=== PATIENT | male | born 1960 | race Caucasian/White ===

== ENCOUNTER → 2016-08-12 | Outpatient (CLI) | payer OTHER ==
[~2016-08-12] MED LIST: ACET500T57 PO; MINO100T PO; OXYM0.056; PRED20TA2 PO; SIMV20TA2 PO; WARF10TA4 PO; WARF5TAB7 PO; XRL15 PO
[2016-08-12 12:23] LABS: BASO % 0.1 %; BASO ABS # 0.01 K/uL (0-0.2); COMPLETE YES; EOS % 3.8 %; HEMATOCRIT 46.8 % (42-52); IG% 0.3 %; LYMPH % 27.2 %; LYMPH ABS # 1.86 K/uL (1.2-3.4); MEAN CELL VOLUME 83.9 fL (80-100); MEAN CORPUSCULAR HEMOGLOBIN 28.9 pg (25-34); MEAN CORPUSCULAR HGB CONC 34.4 g/dl (32-36); MEAN PLATELET VOLUME 9.6 fL (7.4-10.4); MONO % 9.4 %; NEUT % 59.2 %; PLATELET COUNT 294 K/uL (130-400); RED BLOOD COUNT 5.58 M/uL (4.7-6.1); WHITE BLOOD COUNT 6.83 K/uL (4.8-10.8)
[2016-08-12 12:27] LABS: ALKALINE PHOSPHATASE 63 U/L (45-117); ALT/SGPT 33 U/L (12-78); AST/SGOT 18 U/L (15-37); BLOOD UREA NITROGEN 23 mg/dl (7-18); BUN/CREATININE RATIO 20.8 (10-20); CALCIUM 9.2 mg/dl (8.5-10.1); CARBON DIOXIDE 24 mmol/L (21-32); CHLORIDE 107 mmol/L (98-107); CHOLESTEROL 269 mg/dl (0-200); GLUCOSE 99 mg/dl (70-99); HDL CHOLESTEROL 54 mg/dl; LDL CHOLESTEROL CALCULATED 163 mg/dl; POTASSIUM 4.5 mmol/L (3.5-5.1); SODIUM 139 mmol/L (136-145); TRIGLYCERIDES 262 mg/dl (0-150); VERY LOW DENSITY LIPOPROT CALC 52 mg/dl
[2016-08-12 12:29] LABS: PROSTATE SPECIFIC ANTIGEN 0.329 ng/ml (0.000-4.000)
== END | disposition home or self-care (01) ==
LOC: C.LABBFT 10:27
PROVIDERS: ATTEND Internal Medicine
DX: Z00.00 Encounter for general adult medical examination without abnormal findings (principal); E78.5 Hyperlipidemia, unspecified; I82.409 Acute embolism and thrombosis of unspecified deep veins of unspecified lower extremity; I26.99 Other pulmonary embolism without acute cor pulmonale; Z12.5 Encounter for screening for malignant neoplasm of prostate

== ENCOUNTER → 2017-06-10 | Outpatient (CLI) | payer OTHER ==
[~2017-06-10] MED LIST changes: -PRED20TA2 PO; -XRL15 PO
[2017-06-10 14:29] LABS: ALT/SGPT 29 U/L (12-78); AST/SGOT 21 U/L (15-37); BLOOD UREA NITROGEN 19 mg/dl (7-18); BUN/CREATININE RATIO 18.3 (10-20); CALCIUM 9.1 mg/dl (8.5-10.1); CARBON DIOXIDE 25 mmol/L (21-32); CHLORIDE 106 mmol/L (98-107); CREATININE 1.05 mg/dl (0.60-1.40); GLUCOSE 101 mg/dl (70-99); POTASSIUM 4.4 mmol/L (3.5-5.1); SODIUM 140 mmol/L (136-145)
[2017-06-10 14:37] LABS: ALKALINE PHOSPHATASE 58 U/L (45-117); CHOLESTEROL 167 mg/dl (0-200); CHOLESTEROL/HDL RATIO 3.3; HDL CHOLESTEROL 51 mg/dl; LDL CHOLESTEROL CALCULATED 93 mg/dl; PROSTATE SPECIFIC ANTIGEN 0.442 ng/ml (0.000-4.000); TRIGLYCERIDES 116 mg/dl (0-150); VERY LOW DENSITY LIPOPROT CALC 23 mg/dl
== END | disposition home or self-care (01) ==
LOC: C.LABBFT 09:39
PROVIDERS: ATTEND Internal Medicine
DX: Z00.00 Encounter for general adult medical examination without abnormal findings (principal); Z12.5 Encounter for screening for malignant neoplasm of prostate; E78.5 Hyperlipidemia, unspecified

== ENCOUNTER → 2018-02-26 | Outpatient (CLI) | payer OTHER ==
[~2018-02-26] MED LIST changes: -ACET500T57 PO; +ACET500T58 PO; +[UNRECOGNIZED DRUG - OTHER] PO
[2018-02-26 17:43] LABS: ALBUMIN 3.6 gm/dl (3.4-5.0); ALKALINE PHOSPHATASE 51 U/L (45-117); ALT/SGPT 25 U/L (12-78); AST/SGOT 21 U/L (15-37); BLOOD UREA NITROGEN 21 mg/dl (7-18); CALCIUM 8.2 mg/dl (8.5-10.1); CARBON DIOXIDE 23 mmol/L (21-32); CHOLESTEROL 176 mg/dl (0-200); CREATININE 0.99 mg/dl (0.60-1.40); GLUCOSE 85 mg/dl (70-99); LDL CHOLESTEROL CALCULATED 112 mg/dl; POTASSIUM 3.9 mmol/L (3.5-5.1); SODIUM 138 mmol/L (136-145); TOTAL PROTEIN 7.3 gm/dl (6.4-8.2)
[2018-02-27 06:50] LABS: HEMOGLOBIN A1C 5.8 % (4.5-5.6)
== END | disposition home or self-care (01) ==
LOC: C.LABBFT 11:09
PROVIDERS: ATTEND Internal Medicine
DX: Z00.00 Encounter for general adult medical examination without abnormal findings (principal); E78.5 Hyperlipidemia, unspecified; R73.01 Impaired fasting glucose

== ENCOUNTER 2018-03-05 20:30 | Emergency (ER) | payer OTHER ==
[~2018-03-05] VITALS: Ht 177.8 cm; Wt 110.4 kg
[2018-03-05 20:34] VITALS: TEMP 36.8; Ht 177.8 cm; Wt 110.4 kg
[2018-03-05 21:46] VITALS: BP 132/76; PULSE 78; O2SAT 98
--- NOTE | 2018-03-05 23:41 | EMERGENCY ROOM VISIT NOTE ---
History Report prepared by Estefaniaibdenis: Krupa Richard Under the Supervision of: Dr. West Tolbert D.O. First contact with patient: 21:05 Chief Complaint: FOOD BOLUS Stated Complaint: FOOD FEELS STUCK IN THROAT Nursing Triage Summary: PT ate approx 1/2 hr ago states "I feel as though there is a lump in my throat, I can swallow but I gagged for a few mins after I had eaten." PT has no CP, lungs CTA. RA sat is 97. no distress noted. History of Present Illness The patient is a 58 year old male who presents to the Emergency Room with complaints of an episode of food bolus that occurred 1 hour prior to arrival. The patient reports that he was eating fish sticks when he started to gag severely. He notes that he was able to swallow but he states that his throat still does not feel right. He reports that he was able to drink some milk after the episode and he denies having trouble breathing. Source of History: patient Onset: 1 hour prior to arrival Position: throat Quality: other (food bolus) Timing: other (episode) Associated Symptoms: No nausea Note: Additional symptoms: gagging Denies: trouble breathing Review of Systems See HPI for pertinent positives & negatives. A total of 10 systems reviewed and were otherwise negative. Past Medical & Surgical Medical Problems: (1) Bilateral pulmonary embolism (2) Depression (3) Major depressive disorder, recurrent episode with anxious distress (4) past psych meds (5) Pulmonary embolism (6) Right heart failure due to pulmonary hypertension Family History Cancer Social History Smoking Status: Never Smoker Alcohol Use: none Drug Use: none Marital Status: single Housing Status: lives alone Occupation Status: unemployed Current/Historical Medications Scheduled Acetaminophen (Acetaminophen), 1 TAB PO 2XWK Minocycline Hcl (Minocycline Hcl), 1 TAB PO DAILY Oxymetazoline Hcl (Afrin), 1 SPRAY NA QAM Simvastatin (Zocor), 40 MG PO QPM Warfarin Sod (Jantoven), 5 MG PO WK Warfarin Sod (Jantoven), 10 MG PO 6XWK [Alpha Muscle Complex], 1 TAB PO DAILY Allergies Coded Allergies: Rivaroxaban (Verified Allergy, Severe, tongue swelled, hands swelled, redness, itching, 01/26/17) Physical Exam Vital Signs Date Time Temp Pulse Resp B/P (MAP) Pulse Ox O2 Delivery O2 Flow Rate FiO2 03/05/18 21:46 78 18 132/76 98 03/05/18 20:43 97 Room Air 03/05/18 20:34 36.8 73 18 143/102 98 Room Air Physical Exam CONSTITUTIONAL/VITAL SIGNS: Reviewed / noted above. GENERAL: Non-toxic in appearance. INTEGUMENTARY: Warm, dry, and [place]. HEAD: Normocephalic. EYES: without scleral icterus or trauma. ENT/OROPHARYNX: mild mucosa edema in posterior oropharynx. LYMPHADENOPATHY/NECK: Is supple without lymphadenopathy or meningismus. RESPIRATORY: Lungs clear and equal. CARDIOVASCULAR: Regular rate and rhythm. GI/ABDOMEN: Soft and nontender. No organomegaly or pulsatile mass. No rebound or guarding. Normal bowel sounds. EXTREMITIES: Warm and well perfused. BACK: No CVA tenderness. NEUROLOGICAL: Intact without focal deficits. PSYCHIATRIC: normal affect. MUSCULOSKELETAL: Normally developed with good muscle tone. Medical Decision & Procedures ED Course 2117: Previous medical records were reviewed. The patient was evaluated in room A10. A complete history and physical examination was performed. 2146: On reevaluation, the patient is resting. I discussed the results and findings with the patient. He verbalized agreement of the treatment plan. The patient was discharged home. Medical Decision Differential includes allergic reaction, infection, esophageal obstruction, aspiration. This is a 58-year-old male who presents to the ED with a chief complaint of a sensation of something getting stuck in the back of his throat while he was eating a fish stick. The patient that he gagged and this caused him to gag several times. The patient came in for evaluation as he had some discomfort in the posterior oropharynx. His physical exam reveals some mild mucosal edema in the posterior oropharynx midline. No other abnormalities were noted. The patient is breathing without difficulty. He denies any respiratory issues. The patient was able to swallow fluids and he does not have any discomfort in his chest with drinking. The patient, after evaluation was advised of the results of his evaluation. He was told of the findings and is to anticipate that his symptoms will improve over the next 12-24 hours. The patient was felt to be stable for discharge. Medication Reconcilliation Current Medication List: was personally reviewed by me Blood Pressure Screening Patient's blood pressure: Normal blood pressure Impression Primary Impression: Sore throat Scribe Attestation The scribe's documentation has been prepared under my direction and personally reviewed by me in its entirety. I confirm that the note above accurately reflects all work, treatment, procedures, and medical decision making performed by me. Departure Information Dispostion Home / Self-Care Referrals Catalina Todd M.D. (PCP) Forms HOME CARE DOCUMENTATION FORM, IMPORTANT VISIT INFORMATION, WORK / SCHOOL INSTRUCTIONS Patient Instructions My [facility]
== END 2018-03-05 21:47 | disposition home or self-care (01) ==
LOC: C.EDB 20:31 → C.EDA 21:47
DX: R07.0 Pain in throat (principal); Z86.711 Personal history of pulmonary embolism; Z79.01 Long term (current) use of anticoagulants; Z88.8 Allergy status to other drugs, medicaments and biological substances

== ENCOUNTER 2019-02-16 18:31 | Inpatient (IN) ==
[2019-02-16] MEDS ORDERED: SODIUM CHLORIDE 0.9% 500 ML IV SCH (18:45)
[2019-02-16] MEDS ORDERED: SODIUM CHLORIDE 0.9% 1000ML 1,000 ML IV SCH (18:45)
[2019-02-16 19:42] LABS: Basophils # (auto) 0.01 K/uL (0-0.2); Basophils % (auto) 0.1 %; Eosinophils # (auto) 0.21 K/uL (0-0.5); Eosinophils % (auto) 2.3 %; Hematocrit (blood only) 43.5 % (42-52); Hemoglobin 14.9 g/dL (14.0-18.0); Immature Granulocytes # (auto) 0.02 K/uL (0.00-0.02); Immature Granulocytes % (auto) 0.2 %; Lymphocytes # (auto) 1.57 K/uL (1.2-3.4); Lymphocytes % (auto) 17.3 %; Mean Corpuscular Hgb Conc 34.3 g/dL (32-36); Mean Corpuscular Volume 86.8 fL (80-100); Mean Platelet Volume 8.8 fL (7.4-10.4); Monocytes # (auto) 0.89 K/uL (0.11-0.59); Monocytes % (auto) 9.8 %; Neutrophils % (auto) 70.3 %; Platelet Count 248 K/uL (130-400); RDW Coefficient of Variation 13.9 % (11.5-14.5); Red Blood Count 5.01 M/uL (4.7-6.1)
[2019-02-16 19:59] LABS: Albumin Level 3.8 gm/dl (3.4-5.0); BUN Creatinine Ratio 19.4 (10-20); Calcium 9.1 mg/dl (8.5-10.1); Creatinine Clr Calc Pharmacy 73.7 ml/min; Est GFR (African American) 68.7; Est GFR (Non-African American) 59.3; Magnesium 2.2 mg/dl (1.8-2.4); Potassium 3.6 mmol/L (3.5-5.1)
[2019-02-16 20:02] LABS: Albumin Globulin Ratio 1.1 (0.9-2); Bilirubin,Total 0.4 mg/dl (0.2-1); Globulin 3.6 gm/dl (2.5-4.0); Total Protein 7.4 gm/dl (6.4-8.2)
[2019-02-16 20:16] LABS: Amphetamines+Metham, Urine Neg (Neg); Barbiturates, Urine Neg (Neg); Benzodiazepine, Urine Neg (Neg); Cocaine, Urine Neg (Neg); MDMA (Ecstacy), Urine Neg (Neg); Methadone, Urine Neg (Neg); Opiate, Urine Neg (Neg); Phencyclidine, Urine Neg (Neg)
[2019-02-16 20:17] LABS: Acetaminophen < 2 ug/ml (10-30); Salicylate < 1.7 mg/dl (2.8-20)
[2019-02-16 21:09] LABS: Appearance Urine Clear (Clear); Bacteria Urine Automated Negative (Negative); Blood Urine Negative (Negative); Color Urine Dark Yellow; Glucose Urine UA Negative (Negative); Ketones Urine Negative (Negative); Leukocyte Esterase Urine Negative (Negative); Nitrite Urine Negative (Negative); Protein Urine Trace (Negative); RBC Urine Automated 0-4 /hpf (0-4); Specific Gravity Urine 1.034 (1.000-1.030); Urobilinogen Urine Negative (Negative)
[2019-02-16 21:12] LABS: Bilirubin Urine Negative (Negative); Ictotest Urine Negative (Negative)
[2019-02-16 21:20] LABS: Calcium Oxalate Crystals Urine Present (None Prsent)
--- NOTE | 2019-02-16 23:48 | Emergency Department Note ---
Entered by Britney Calhoun acting as a scribe for Brooke Tripp MD History of Present Illness General Chief complaint: Overdose (Intentional) Stated complaint: OVERDOSE, ANXIETY, HEADACHE Source: patient Limitations: no limitations History of Present Illness Provider complaint: Overdose Onset (ago): day(s) 1 Location: head Radiation: non-radiation Quality: + aching Relieved By: + none Exacerbated By: + none Associated symptoms: + shortness of breath and + other (+anxiety, +aching, +dry mouth, -heart pounding) Treatments prior to arrival: none The patient is a year 58 old male who presents to the Emergency Department with after an overdose. The patient took "about 25 over the counter sleeping pills" yesterday in the evening, he is not sure if it contained Tylenol. The patient states he was having trouble sleeping and he got a very bad anxiety that caused him to take the pills. He states that the bottle is at home. The patient states despite taking the pills, he did not sleep well and when he woke up he was having difficulty breathing and his mouth was very dry. The patient felt as though he was hearing voices today. The patient decided to come in today after speaking to a friend because he feels as if his body is shutting down on him. The patient states he has depression on and off and at times is suicidal. The patient takes Coumadin regularly. The patient also states he has a history of blood clots. The patient denies smoking or drugs. Home Medications Home Medications Medication Instructions Recorded Confirmed Type warfarin 10 mg tablet 10 mg PO 6XWK tab 04/13/18 02/16/19 History warfarin 5 mg PO WK 02/05/19 02/16/19 History simvastatin 40 mg tablet 40 mg PO HS #30 tab 02/15/19 02/16/19 Rx Allergies Allergy/AdvReac Type Severity Reaction Status Date / Time rivaroxaban Allergy Severe tongue Verified 02/05/19 13:52 swelled, hands swelled, redness, itching Past Med/Surg History Medical History Left shoulder pain (Acute) Pulmonary embolism (Chronic) Depression (Chronic) Adverse reaction to drug (Acute) Bilateral pulmonary embolism Major depressive disorder, recurrent episode with anxious distress Right heart failure due to pulmonary hypertension Surgical History No pertinent past surgical history Family History Other No pertinent family history Social History Preferred Language: Latvian Communication Ability: Effective Visual Impairment: No Limitations Hearing Ability: Normal Derrick Boat [employer] Required: No Beliefs That Will Affect Care: None Current Living Situation: Alone Feels Safe at Home: Yes Smoking Status: Former smoker Review of Systems See HPI for pertinent positives & negatives. and A total of 10 systems reviewed and were otherwise negative Physical Exam Vital Signs Vital Signs - 24 hr 02/16/19 18:37 02/16/19 20:00 02/16/19 20:37 Temperature 36.8 C Temperature Source Oral Sepsis Recent Fever Within 48 Hours No Sepsis New/Unexplained Change in Mental Status No Sepsis Action Taken by Nursing No Action Required Pulse Rate 80 Pulse Rate [Apical] 79 Pulse Rhythm Regular Pulse Rhythm [Apical] Pulse Strength Normal Respiratory Rate 18 18 Respiratory Effort / Characteristics Non-Labored Respiratory Depth Normal Respiratory Pattern Regular Blood Pressure 147/91 H Blood Pressure [Right Arm] 145/92 H Blood Pressure Mean 109 Blood Pressure Mean [Right Arm] 109 Blood Pressure Position Lying Pulse Oximetry 95 98 99 Oxygen Delivery Method Room Air Room Air Room Air 02/16/19 23:07 Temperature Temperature Source Sepsis Recent Fever Within 48 Hours Sepsis New/Unexplained Change in Mental Status Sepsis Action Taken by Nursing Pulse Rate Pulse Rate [Apical] 90 Pulse Rhythm Pulse Rhythm [Apical] Regular Pulse Strength Respiratory Rate 18 Respiratory Effort / Characteristics Respiratory Depth Normal Respiratory Pattern Blood Pressure Blood Pressure [Right Arm] 150/80 H Blood Pressure Mean Blood Pressure Mean [Right Arm] 103 Blood Pressure Position Pulse Oximetry 98 Oxygen Delivery Method Room Air Vital signs reviewed. General: Anxious and disheveled looking male, in no significant distress. HEENT: No scleral icterus, PERRLA, neck supple. Atraumatic. Cardiovascular: Regular rate and rhythm, no extra sounds. Pulmonary: Clear to auscultation bilaterally, normal work of breathing. Abdomen: Soft, nontender, nondistended, positive bowel sounds. Musculoskeletal: Atraumatic, no peripheral edema. Neurologic: Patient awake alert and oriented x 3. Skin: Warm, dry, no rash PSYCH: passive SI, no HI Course 1843: Past medical records reviewed. The patient was evaluated in room A6. A complete history and physical examination was performed. 2447: I spoke with the nurse liaison about the patients case. The patient will be admitted to [address] [place] [address]. Administered Medications Discontinued Medications Sodium Chloride (Nss) 500 mls @ 999 mls/hr IV .Q31M SETH Stop: 02/16/19 19:15 Last Infusion: 02/16/19 19:33 Dose: 0 mls/hr Documented by: [id number] Admin: 02/16/19 19:08 Dose: 999 mls/hr Documented by: [id number] Sodium Chloride (Nss 1000ml) 1,000 mls @ 150 mls/hr IV .Q6H40M SETH Stop: 03/18/19 18:44 Last Infusion: 02/17/19 00:51 Dose: 0 mls/hr Documented by: [id number] Admin: 02/16/19 19:08 Dose: 150 mls/hr Documented by: [id number] Medical Decision Making Differential Diagnosis Differential diagnosis: Etiologies such as mood disorder, infection, hypoglycemia, electrolyte abnormalities, cardiac sources, intracerebral event, toxicologic, neurologic, as well as others were entertained. Medical Records Attestation: I reviewed the patient's medical records. Home Medications Current Medication List: was personally reviewed by me Laboratory Data Attestation: I reviewed the patient's lab results. Result diagrams: 02/16/19 19:28 02/16/19 19:28 Lab Results 02/16/19 02/16/19 02/16/19 Range/Units 19:28 19:28 19:28 WBC 9.10 (4.8-10.8) K/uL RBC 5.01 (4.7-6.1) M/uL Hgb 14.9 (14.0-18.0) g/dL Hct 43.5 (42-52) % MCV 86.8 (80-100) fL MCH 29.7 (25-34) pg MCHC 34.3 (32-36) g/dL RDW Std Deviation 44.0 (36.4-46.3) fL RDW Coeff of Christin 13.9 (11.5-14.5) % Plt Count 248 (130-400) K/uL MPV 8.8 (7.4-10.4) fL Immature Gran % (Auto) 0.2 % Neut % (Auto) 70.3 % Lymph % (Auto) 17.3 % [place] % (Auto) 9.8 % Eos % (Auto) 2.3 % Baso % (Auto) 0.1 % Immature Gran # (Auto) 0.02 (0.00-0.02) K/uL Neut # (Auto) 6.40 (1.4-6.5) K/uL Lymph # (Auto) 1.57 (1.2-3.4) K/uL [place] # (Auto) 0.89 H (0.11-0.59) K/uL Eos # (Auto) 0.21 (0-0.5) K/uL Baso # (Auto) 0.01 (0-0.2) K/uL PT (9.0-12.0) Seconds INR (0.9-1.1) APTT (21.0-31.0) Seconds PTT Ratio Sodium 142 (136-145) mmol/L Potassium 3.6 (3.5-5.1) mmol/L Chloride 109 H (98-107) mmol/L Carbon Dioxide 28 (21-32) mmol/L Anion Gap 5.0 (3-11) BUN 25 H (7-18) mg/dl Creatinine 1.30 (0.6-1.4) mg/dl Est Cr Clr Drug Dosing 73.7 ml/min Est GFR ( Amer) 68.7 Est GFR (Non-Af Amer) 59.3 BUN/Creatinine Ratio 19.4 (10-20) Glucose 102 H (70-99) mg/dl Calcium 9.1 (8.5-10.1) mg/dl Magnesium 2.2 (1.8-2.4) mg/dl Total Bilirubin 0.4 (0.2-1) mg/dl AST 44 H (15-37) U/L ALT 35 (12-78) U/L Alkaline Phosphatase 56 (45-117) U/L Total Protein 7.4 (6.4-8.2) gm/dl Albumin 3.8 (3.4-5.0) gm/dl Globulin 3.6 (2.5-4.0) gm/dl Albumin/Globulin Ratio 1.1 (0.9-2) TSH (0.300-4.500) uIu/ml Urine Color Urine Appearance (Clear) Urine pH (4.5-7.5) Ur Specific Kirk (1.000-1.030) Urine Protein (Negative) Urine Glucose (UA) (Negative) Urine Ketones (Negative) Urine Blood (Negative) Urine Nitrite (Negative) Urine Bilirubin (Negative) Urine Urobilinogen (Negative) Ur Leukocyte Esterase (Negative) Urine WBC (Auto) (0-5) /hpf Urine RBC (Auto) (0-4) /hpf U Hyaline Cast (Auto) (0-5) /lpf U Epithel Cells (Auto) (0-5) /lpf Urine Bacteria (Auto) (Negative) Urine Crystals Calcium Oxalate Crystal (None Prsent) Salicylates < 1.7 L (2.8-20) mg/dl Urine Opiates Screen (Neg) Ur Methadone, Qual (Neg) Acetaminophen < 2 L (10-30) ug/ml Urine Barbiturates (Neg) Ur Phencyclidine (PCP) (Neg) U Amphetamin/Meth Scrn (Neg) MDMA (Ecstasy) Screen (Neg) U Benzodiazepines Scrn (Neg) Ur Cocaine Metabolite (Neg) U Marijuana (THC) Screen (Neg) Ethyl Alcohol mg/dL (0-3) mg/dl 02/16/19 02/16/19 02/16/19 Range/Units 19:28 19:28 19:28 WBC (4.8-10.8) K/uL RBC (4.7-6.1) M/uL Hgb (14.0-18.0) g/dL Hct (42-52) % MCV (80-100) fL MCH (25-34) pg MCHC (32-36) g/dL RDW Std Deviation (36.4-46.3) fL RDW Coeff of Christin (11.5-14.5) % Plt Count (130-400) K/uL MPV (7.4-10.4) fL Immature Gran % (Auto) % Neut % (Auto) % Lymph % (Auto) % [place] % (Auto) % Eos % (Auto) % Baso % (Auto) % Immature Gran # (Auto) (0.00-0.02) K/uL Neut # (Auto) (1.4-6.5) K/uL Lymph # (Auto) (1.2-3.4) K/uL [place] # (Auto) (0.11-0.59) K/uL Eos # (Auto) (0-0.5) K/uL Baso # (Auto) (0-0.2) K/uL PT 41.4 H (9.0-12.0) Seconds INR 4.5 H (0.9-1.1) APTT 41.9 H (21.0-31.0) Seconds PTT Ratio 1.5 Sodium (136-145) mmol/L Potassium (3.5-5.1) mmol/L Chloride (98-107) mmol/L Carbon Dioxide (21-32) mmol/L Anion Gap (3-11) BUN (7-18) mg/dl Creatinine (0.6-1.4) mg/dl Est Cr Clr Drug Dosing ml/min Est GFR ( Amer) Est GFR (Non-Af Amer) BUN/Creatinine Ratio (10-20) Glucose (70-99) mg/dl Calcium (8.5-10.1) mg/dl Magnesium (1.8-2.4) mg/dl Total Bilirubin (0.2-1) mg/dl AST (15-37) U/L ALT (12-78) U/L Alkaline Phosphatase (45-117) U/L Total Protein (6.4-8.2) gm/dl Albumin (3.4-5.0) gm/dl Globulin (2.5-4.0) gm/dl Albumin/Globulin Ratio (0.9-2) TSH 1.930 (0.300-4.500) uIu/ml Urine Color Urine Appearance (Clear) Urine pH (4.5-7.5) Ur Specific Kirk (1.000-1.030) Urine Protein (Negative) Urine Glucose (UA) (Negative) Urine Ketones (Negative) Urine Blood (Negative) Urine Nitrite (Negative) Urine Bilirubin (Negative) Urine Urobilinogen (Negative) Ur Leukocyte Esterase (Negative) Urine WBC (Auto) (0-5) /hpf Urine RBC (Auto) (0-4) /hpf U Hyaline Cast (Auto) (0-5) /lpf U Epithel Cells (Auto) (0-5) /lpf Urine Bacteria (Auto) (Negative) Urine Crystals Calcium Oxalate Crystal (None Prsent) Salicylates (2.8-20) mg/dl Urine Opiates Screen (Neg) Ur Methadone, Qual (Neg) Acetaminophen (10-30) ug/ml Urine Barbiturates (Neg) Ur Phencyclidine (PCP) (Neg) U Amphetamin/Meth Scrn (Neg) MDMA (Ecstasy) Screen (Neg) U Benzodiazepines Scrn (Neg) Ur Cocaine Metabolite (Neg) U Marijuana (THC) Screen (Neg) Ethyl Alcohol mg/dL < 3.0 (0-3) mg/dl 02/16/19 02/16/19 Range/Units 19:40 19:40 WBC (4.8-10.8) K/uL RBC (4.7-6.1) M/uL Hgb (14.0-18.0) g/dL Hct (42-52) % MCV (80-100) fL MCH (25-34) pg MCHC (32-36) g/dL RDW Std Deviation (36.4-46.3) fL RDW Coeff of Christin (11.5-14.5) % Plt Count (130-400) K/uL MPV (7.4-10.4) fL Immature Gran % (Auto) % Neut % (Auto) % Lymph % (Auto) % [place] % (Auto) % Eos % (Auto) % Baso % (Auto) % Immature Gran # (Auto) (0.00-0.02) K/uL Neut # (Auto) (1.4-6.5) K/uL Lymph # (Auto) (1.2-3.4) K/uL [place] # (Auto) (0.11-0.59) K/uL Eos # (Auto) (0-0.5) K/uL Baso # (Auto) (0-0.2) K/uL PT (9.0-12.0) Seconds INR (0.9-1.1) APTT (21.0-31.0) Seconds PTT Ratio Sodium (136-145) mmol/L Potassium (3.5-5.1) mmol/L Chloride (98-107) mmol/L Carbon Dioxide (21-32) mmol/L Anion Gap (3-11) BUN (7-18) mg/dl Creatinine (0.6-1.4) mg/dl Est Cr Clr Drug Dosing ml/min Est GFR ( Amer) Est GFR (Non-Af Amer) BUN/Creatinine Ratio (10-20) Glucose (70-99) mg/dl Calcium (8.5-10.1) mg/dl Magnesium (1.8-2.4) mg/dl Total Bilirubin (0.2-1) mg/dl AST (15-37) U/L ALT (12-78) U/L Alkaline Phosphatase (45-117) U/L Total Protein (6.4-8.2) gm/dl Albumin (3.4-5.0) gm/dl Globulin (2.5-4.0) gm/dl Albumin/Globulin Ratio (0.9-2) TSH (0.300-4.500) uIu/ml Urine Color Dark Yellow Urine Appearance Clear (Clear) Urine pH 5.0 (4.5-7.5) Ur Specific Kirk 1.034 H (1.000-1.030) Urine Protein Trace H (Negative) Urine Glucose (UA) Negative (Negative) Urine Ketones Negative (Negative) Urine Blood Negative (Negative) Urine Nitrite Negative (Negative) Urine Bilirubin Negative (Negative) Urine Urobilinogen Negative (Negative) Ur Leukocyte Esterase Negative (Negative) Urine WBC (Auto) 1-5 (0-5) /hpf Urine RBC (Auto) 0-4 (0-4) /hpf U Hyaline Cast (Auto) 1-5 (0-5) /lpf U Epithel Cells (Auto) 5-10 H (0-5) /lpf Urine Bacteria (Auto) Negative (Negative) Urine Crystals Not Reportable Calcium Oxalate Crystal Present A (None Prsent) Salicylates (2.8-20) mg/dl Urine Opiates Screen Neg (Neg) Ur Methadone, Qual Neg (Neg) Acetaminophen (10-30) ug/ml Urine Barbiturates Neg (Neg) Ur Phencyclidine (PCP) Neg (Neg) U Amphetamin/Meth Scrn Neg (Neg) MDMA (Ecstasy) Screen Neg (Neg) U Benzodiazepines Scrn Neg (Neg) Ur Cocaine Metabolite Neg (Neg) U Marijuana (THC) Screen Neg (Neg) Ethyl Alcohol mg/dL (0-3) mg/dl ECG Data Attestation: I personally reviewed and interpreted this ECG as follows: Indication: other (Overdose) Rate (beats per minute): 77 Rhythm: normal sinus Findings: + other (NAD) Blood Pressure Blood Pressure Findings: Elevated blood pressure Blood Pressure Disposition: further management by hospitalist MDM Narrative This patient was evaluated and appeared to be in no significant distress. Patient admits to some passive suicidal thoughts. He was medically evaluated and cleared. Patient was evaluated by the mental health case preparer and liner and apparently had admitted to his brother yesterday that he intended to harm himself and overdose on pills. The police did arrive in the emergency department to speak with the patient. A 302 petition was filed however the patient is voluntary for admission at this time. Patient is found to have an INR of 4.5. My recommendation would be for the patient to skip his Coumadin 1 to 2 days and repeat the INR in 3 days. Patient signed and on a 201 and was accepted to 3 [address]. for admission. Impression & Plan Intentional diphenhydramine overdose Discharge Plan Visit Data Chief Complaint: Overdose (Intentional) Stated Complaint: OVERDOSE, ANXIETY, HEADACHE ED Provider: Brooke Tripp Discharge Problem: Intentional diphenhydramine overdose Discharge Instructions Interventions: ED Discharge Assessment Last Done: 02/17/19 00:51 Discharge Problem: Intentional diphenhydramine overdose Qualifiers: Encounter type: initial encounter Qualified Code(s): T45.0X2A - Poisoning by antiallergic and antiemetic drugs, intentional self-harm, initial encounter The scribe's documentation has been prepared under my direction and personally reviewed by me in its entirety. I confirm that the note above accurately reflects all work, treatment, procedures, and medical decision making performed by me.
[2019-02-17 00:30] LABS: INR 4.5 (0.9-1.1); Partial Thromboplastin Ratio 1.5; Partial Thromboplastin Time 41.9 Seconds (21.0-31.0); Prothrombin Time 41.4 Seconds (9.0-12.0)
[2019-02-17] MEDS ORDERED: ALUMINUM/MAGNESIUM SUSP 30 ML UDC PO PRN (01:16)
[2019-02-17] MEDS ORDERED: MAGNESIUM HYDROXIDE SUSP 30 ML UDC PO PRN (01:16)
[2019-02-17] MEDS ORDERED: BISMUTH SUBSALICYLATE PER ML OMNICELL CHARGE PO PRN (01:16)
[2019-02-17] MEDS ORDERED: ACETAMINOPHEN 325 MG TAB PO PRN (01:16)
[2019-02-17] MEDS ORDERED: SODIUM CHLORIDE 0.65% NA SOLN 45 ML (OCEAN) PRN (01:16)
[2019-02-17] MEDS ORDERED: PNEUMOCOCCAL ADMINISTRATION CHARGE ONE (06:30)
[2019-02-17] MEDS ORDERED: PNEUMOCOCCAL POLYSACCHARIDES 25 MCG/0.5 ML VIAL/SYR IM ONE (06:30)
--- NOTE | 2019-02-17 09:34 | History & Physical ---
Date of Service February 17, 2019 Impression / Recommendations Impression 58-year-old single male with a history of severe recurrent depression with psychosis, anxiety NOS, PE/DVT on Coumadin, and noncompliance with mental health treatment who is admitted voluntarily after a suicide attempt by overdose on an unknown rhsq-szc-metmyon sleeping medication (likely diphenhydramine or melatonin, as acetaminophen level was negative). He has a history of previous suicide attempt by overdose, and severe psychotic depression with multiple past hospitalizations, 2 courses of ECT, and noncompliance with outpatient treatment, which led to an involuntary outpatient commitment during his last psychiatric hospitalization here in 2015. He indicates that he dropped out of treatment and stopped medications and outpatient care years ago, and his recollection is that he was told he no longer needed treatment, which is highly unlikely. I suspect that he dropped out of treatment once he was no longer under an involuntary outpatient commitment, but we will attempt to clarify this with the county, and we will need to re-refer him for services and consider the need for another involuntary outpatient commitment. His INR is supratherapeutic, and discussed with Dr. Loyola, the director of the anticoagulation clinic, regarding the specific recommendations for that. This is likely due to his overdose, as his INR is typically stable, and represents another source of imminent risk and could lead to if not monitored and treated. He remains at imminent risk of , disability, or serious injury as a result of his psychiatric conditions, and inpatient treatment is least restrictive appropriate venue for care. (1) Intentional overdose of drug in tablet form: 02/17 - Patient reports intentional overdose on an unknown [id number] sleep medication, is likely diphenhydramine or melatonin based on lack of an elevated acetaminophen level on his toxicology screen. -It would be helpful to identify a friend or family to go to his apartment and retrieve the medication, as well as any other medications in order to limit his access to large amounts of medications, given his history of at least 2 serious overdoses. -Ideally the patient's access to his Coumadin would be restricted, again due to the risk in overdose, but he lives alone and our ability to secure that medication after discharge may be limited. -Encourage group attendance and participation, work on healthy coping skills and a discharge safety plan. Present on Admission?: Yes (2) Depression: 02/17 -patient presents with severe depression and psychotic features. Cannot rule out a delusional disorder with respect to his chronically expressed belief that his life is doomed because he received the "bad feminine genes," while his brothers received the "good genes," who have had good health and lives. -Previous good response to quetiapine and sertraline, and the patient agrees to resume these medications to target mood, anxiety, sleep, and ruminations/delusions. -Start sertraline 50 mg daily and quetiapine 50 mg at bedtime with a repeat dose x1 as needed for sleep. We will titrate to previously effective doses of 200 mg every morning and 200 mg at bedtime, respectively. -Fasting lipid profile and glucose ordered for tomorrow morning for monitoring on an atypical antipsychotic. -Recommend family meeting with friend Luis Felipe and/or brothers. -Patient will need to be referred for outpatient services, including psychiatric care, therapy, and case management. Coordinate with the base service [facility] regarding his past treatment, specifically to clarify if he dropped out of treatment after his IOC , as this may argue toward the need for another IOC. -Explore ways to increase his supports in the community. Depression Type: major depressive disorder Major depression recurrence: recurrent Active/Remission status: currently active Major depression episode severity: severe Psychotic features: with psychotic features Qualified Code(s): F33.3 - Major depressive disorder, recurrent, severe with psychotic symptoms Present on Admission?: Yes (3) Anxiety: 02/17 -patient endorses obsessional ruminations, but no compulsions, as well as some COSME symptoms. Has been diagnosed with anxiety NOS in the past. Previously responded well to sertraline, resume as above. -Hydroxyzine as needed for sleep and anxiety. -Work on healthy ways to cope with anxiety, and refer for outpatient therapy. Present on Admission?: Yes (4) Anticoagulant long-term use: 02/17 -INR is typically stable in the 2-3 range, but has trended up over the past month, was 3.1 on 01/17/2019, 4.0 on 02/05/2019, and 4.5 in the ER yesterday. Rechecked this morning after discussing with Dr. Loyola, and it remains supratherapeutic at 4.5. Per her recommendations, will hold Coumadin and check daily PT and INR, and if it rises above 4.5, will treat with 5 mg of vitamin K p.o. She can be contacted for further recommendations if needed. Present on Admission?: Yes Inventory Assets Strengths: Compliance with medical appts, stable housing, supportive family Needs: Noncompliance with OP treatment, lack of supports Risk Factors Assessment Male: Yes : Yes Do You Have Access To A Gun?: No Health Problems: Yes Mental Health Diagnoses: Yes Substance Use Disorders: No Previous Attempt: Yes Family History of Suicide: No Previous Psychiatric Hospitalization: Yes Hopelessness: Yes Smoker: No Protective Factors Assessment Yazdanism Beliefs: No : No Responsible for Young Children: No Employed: No Stable Relationships: No Supportive Family: Yes Good Rapport with Provider: No Psychiatric History Identifying Data YINKA ROMERO is a 58-year-old M who currently lives in an [place] alone, has a history of recurrent, severe depression with psychosis, anxiety NOS, and history of DVT/PE on chronic anticoagulation, and was admitted on 02/17/19 00:37 on a 201 voluntary commitment for depression and suicidality, after an overdose on approximately 25 tabs of an unknown bczc-qvj-yigmoti sleep medication. Chief Complaint "Anxiety, getting sicker, can't do things, didn't sleep for 6 days, my brother can do anything and is all healthy". History of Present Illness The patient is known to us from 2 previous hospitalizations here, in November and December 2015, for psychotic depression and suicidal ideation. He was started on medication at the time of the first hospitalization and discharged with outpatient care, but was noncompliant and was readmitted several weeks later. His second hospitalization was for 15 days, and he was discharged on sertraline, quetiapine, and clonazepam. He was placed on a 304 involuntary outpatient commitment, due to a long history of noncompliance. He was discharged to follow-up with Rosaline at [facility], Eleanor Poole for therapy at [facility], case management with Av [facility], and recommendations for referral to psych rehab. Yesterday (02/16/2019) the patient presented to the ER after an intentional overdose on an unknown haee-mpn-apybzra sleep medication. He estimated he took about 25 tablets the evening prior, as he has not been able to sleep for several days, then became extremely anxious, and decided to overdose. The next morning, he had shortness of breath and dry mouth, and auditory hallucinations of voices. He talked to a friend, said he thought he was going to , and the friend encouraged him to go to the ER. He reported depression, suicidal ideation, and feeling as if his "body is shutting down." He said "maybe I was trying to end it" when asked if the overdose was a suicide attempt, stating he was "older and sicker," and tired of being lonely. He endorsed chronic delusions that his twin brother got all the "good genes," while the patient received the bad, "left over genes." He believes this has caused him to have a poor life, with chronic depression and inability to be successful. He said his brother contacted police after the patient told him he was going to end his life by overdosing. Police brought him to the hospital he confirmed this report. He reported compliance with his Coumadin, and denied other substance use. He denied having any mental health treatment or taking any psychotropic medications currently. His INR was elevated in the ER so Coumadin was held. He agreed to voluntary hospitalization. On my assessment, he reports that he is depressed and anxious, has progressively declined over the past 2 years, and can't enjoy the activities he used to like walking and bowling, as his legs are stiff which he attributes to h/o blood clots. He says he hasn't been in outpatient treatment or on medications in ?years, as "they said I was good enough, didn't need it anymore." Although he reports he was doing well at that time and then decompensated after dropping out of treatment, he doesn't think treatment has helped him in the past, and doesn't think it will help him now. He perseverates on his brother who is "totally healthy, he got the good genes." He endorses low mood, hopelessness, anhedonia, suicidal ideation, poor sleep, low energy and motivation. Denies changes in appetite. He reports suicidal thoughts "when I couldn't sleep, and anxiety I guess," and wishes to be . He went out and bought sleep medication because he wasn't sleeping, and then "the anxiety got so bad I got the suicidal thoughts." He has had increasing SI for the past month, saying he has no friends, "no one comes around, no one wants to be around with me the way I am, it's my own fault." He later says he has one friend, Luis Felipe, who he talked to yesterday and who called police. He says he hasn't talked to his brothers in months because "they don't want to deal with me." Negative ruminations on the things he did wrong, like "leaving the perfect job at [employer] to come back here," which occurred when he was 18 years old. Says he "thinks every day about that, the biggest mistake I made." He believes that if he would have stayed in that job, "everything would have been perfect, it was the perfect job, had a girlfriend, life was easy." Reports AH of voices that occurred over the past couple days, which consisted of mumbling that he couldn't make out. Also had visual hallucinations of "pictures flashing," but can't give further details. He often thinks about his belief that he got "all the bad genes" which have doomed him to a terrible life, and is distraught. Reports episodic anxiety, with negative ruminations, worry, and feeling on edge, but denies panic, OCD, and PTSD. No h/o rebecca. Spoke with Dr. Loyola, who sees the patient at the anticoagulation clinic. Reviewed his lab work with her; typically his INR is very stable, but he was seen in the ER 02/05/2019 and had an INR of 4.0. Yesterday INR was 4.5, so trending up. She recommended daily INRs, and administration of vitamin K if it rises further. See remainder recommendations below. Past Psychiatric History Previous Psych History: Long-standing recurrent depression and anxiety. History of ECT. History of treatment noncompliance. Current Psychiatric Diagnosis: Major Depressive Disorder Outpatient Services: None currently. At the time of his last discharge in 12/2015, he was on a 304 involuntary outpatient commitment with services at [place], therapy at [facility], and case management through the [facility]. It is unclear when he dropped out of treatment. Previous Psych Admissions: [facility] in 11/2015 and 12/2015 Multiple hospitalizations at [place] (there for >2 months in 2013), and also when the patient was in his 40s [facility] for ECT in 2013 Do You Have Access To A Gun?: No History of Previous Suicide Attempt: Yes Describe Attempts in the Past: Reported an overdose on 50-150 pills over a period of 3 days in 2016 when hospitalized here. Past Medication Trials: Include but not limited to: Quetiapine -discharged on 200 mg at bedtime at the time of 12/2015 hospitalization Sertraline -discharged on 200 mg daily in 12/2015 Bupropion Clonazepam Hydroxyzine Allergies Allergy/AdvReac Type Severity Reaction Status Date / Time rivaroxaban Allergy Severe tongue Verified 02/05/19 13:52 swelled, hands swelled, redness, itching Home Medications Home Medications Medication Instructions Recorded Confirmed Type warfarin 10 mg tablet 10 mg PO [id number] tab 04/13/18 02/16/19 History warfarin 5 mg PO WK 02/05/19 02/16/19 History simvastatin 40 mg tablet 40 mg PO HS #30 tab 02/15/19 02/16/19 Rx Family History Family History of: None Alcohol History Hx of Alcohol Use Over the Past 12 Months: No Smoking Use Have You Smoked or Used Tobacco Products in the Last 30 Days: No Smoking Status: Former smoker Substance History Hx of Prescription Med Misuse Over the Past 12 Months: No Hx of Over the Counter Med Misuse Over the Past 12 Months: No Hx of Inhalent Misuse Over the Past 12 Months: No Hx of Organic Substance Use Over the Past 12 Months: No Hx of Illegal Substances/Street Drug Use Over Past 12 Months: No Problems as a Result of Past Substance Use: None Identified Personal History Living Arrangements: Apartment Living Arrangements Comments: Lives alone in an [place] Childhood: Grew up locally, raised by both parents who are now . He has a twin brother, 2 other brothers, and a sister. Siblings live in [facility], and twin brother a couple hours away. 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 He was laid off, and then worked a variety of other jobs. Last worked >3 years ago at [employer], now retired and on disability. Employment Status: Retired Marital Status: Single (Never ) Number Of Children: None Beliefs That Will Affect Care: None Hx Legal Problems: No Hx Traumatic Life Events: No Patient History Medical History Left shoulder pain (Acute) Pulmonary embolism (Chronic) Depression (Chronic) Adverse reaction to drug (Acute) Bilateral pulmonary embolism Major depressive disorder, recurrent episode with anxious distress Right heart failure due to pulmonary hypertension Surgical History No pertinent past surgical history Family History Other No pertinent family history Social History Preferred Language: Hong Konger Communication Ability: Effective Visual Impairment: No Limitations Hearing Ability: Normal Crew Boat Operator Required: No Beliefs That Will Affect Care: None Current Living Situation: Alone Feels Safe at Home: Yes Smoking Status: Former smoker Review of Systems Review of Systems: All systems reviewed & are unremarkable except as noted in HPI & below leg stiffness Physical Exam Psychiatric: Orientation: alert, oriented x 3 and cooperative Apperance: appropriately dressed, + disheveled and appeared stated age Eye Contact: + fair eye contact Motor Behavior: steady gait and station and no abnormal motor movements Speech: normal rate/rhythm/volume of speech Affect: + depressed affect, + anxious affect, + constricted affect and mood congruent with affect Mood: + depressed mood and + anxious mood Thought Process: + perseveration Thought Content: + preoccupation and + obsessions (Of delusional proportions) Suicidal Thoughts: + reports suicidal thoughts Reports suicidal thoughts, hopelessness, and admits overdose was a suicide attempt Homicidal Thoughts: denies homicidal thoughts Hallucinations: + auditory hallucinations and + visual hallucinations Cognition: recent memory grossly intact and language grossly intact; + remote memory not intact and + attention not intact (At times answers with unrelated information, difficulty switching topics, have to repeat questions.) Insight: + impaired insight Judgement: + impaired judgement Vital Signs (Past 24 Hours): Last Vital Signs Temp 36.2 C L 02/17/19 06:00 Pulse 92 H 02/17/19 06:43 Resp 16 02/17/19 06:00 BP 120/78 02/17/19 06:43 Pulse Ox 96 08/01/19 01:23 Exam Statement: A physical exam was performed in the ER prior to admission to the unit by Dr. Brooke Tripp. I accept that physical as correct/medical clearance for the inpatient physical exam. Results & Data Laboratory Results Laboratory Results - last 24 hr 02/16/19 02/16/19 02/16/19 19:28 19:28 19:28 WBC 9.10 RBC 5.01 Hgb 14.9 Hct 43.5 MCV 86.8 MCH 29.7 MCHC 34.3 RDW Std Deviation 44.0 RDW Coeff of Christin 13.9 Plt Count 248 MPV 8.8 Immature Gran % (Auto) 0.2 Neut % (Auto) 70.3 Lymph % (Auto) 17.3 [place] % (Auto) 9.8 Eos % (Auto) 2.3 Baso % (Auto) 0.1 Immature Gran # (Auto) 0.02 Neut # (Auto) 6.40 Lymph # (Auto) 1.57 [place] # (Auto) 0.89 H Eos # (Auto) 0.21 Baso # (Auto) 0.01 PT INR APTT PTT Ratio Sodium 142 Potassium 3.6 Chloride 109 H Carbon Dioxide 28 Anion Gap 5.0 BUN 25 H Creatinine 1.30 Est Cr Clr Drug Dosing 73.7 Est GFR ( Amer) 68.7 Est GFR (Non-Af Amer) 59.3 BUN/Creatinine Ratio 19.4 Glucose 102 H Calcium 9.1 Magnesium 2.2 Total Bilirubin 0.4 AST 44 H ALT 35 Alkaline Phosphatase 56 Total Protein 7.4 Albumin 3.8 Globulin 3.6 Albumin/Globulin Ratio 1.1 TSH Urine Color Urine Appearance Urine pH Ur Specific [place] Urine Protein Urine Glucose (UA) Urine Ketones Urine Blood Urine Nitrite Urine Bilirubin Urine Urobilinogen Ur Leukocyte Esterase Urine WBC (Auto) Urine RBC (Auto) U Hyaline Cast (Auto) U Epithel Cells (Auto) Urine Bacteria (Auto) Urine Crystals Calcium Oxalate Crystal Salicylates < 1.7 L Urine Opiates Screen Ur Methadone, Qual Acetaminophen < 2 L Urine Barbiturates Ur Phencyclidine (PCP) U Amphetamin/Meth Scrn MDMA (Ecstasy) Screen U Benzodiazepines Scrn Ur Cocaine Metabolite U Marijuana (THC) Screen Ethyl Alcohol mg/dL 02/16/19 02/16/19 02/16/19 19:28 19:28 19:28 WBC RBC Hgb Hct MCV MCH MCHC RDW Std Deviation RDW Coeff of Christin Plt Count MPV Immature Gran % (Auto) Neut % (Auto) Lymph % (Auto) [place] % (Auto) Eos % (Auto) Baso % (Auto) Immature Gran # (Auto) Neut # (Auto) Lymph # (Auto) [place] # (Auto) Eos # (Auto) Baso # (Auto) PT 41.4 H INR 4.5 H APTT 41.9 H PTT Ratio 1.5 Sodium Potassium Chloride Carbon Dioxide Anion Gap BUN Creatinine Est Cr Clr Drug Dosing Est GFR ( Amer) Est GFR (Non-Af Amer) BUN/Creatinine Ratio Glucose Calcium Magnesium Total Bilirubin AST ALT Alkaline Phosphatase Total Protein Albumin Globulin Albumin/Globulin Ratio TSH 1.930 Urine Color Urine Appearance Urine pH Ur Specific [place] Urine Protein Urine Glucose (UA) Urine Ketones Urine Blood Urine Nitrite Urine Bilirubin Urine Urobilinogen Ur Leukocyte Esterase Urine WBC (Auto) Urine RBC (Auto) U Hyaline Cast (Auto) U Epithel Cells (Auto) Urine Bacteria (Auto) Urine Crystals Calcium Oxalate Crystal Salicylates Urine Opiates Screen Ur Methadone, Qual Acetaminophen Urine Barbiturates Ur Phencyclidine (PCP) U Amphetamin/Meth Scrn MDMA (Ecstasy) Screen U Benzodiazepines Scrn Ur Cocaine Metabolite U Marijuana (THC) Screen Ethyl Alcohol mg/dL < 3.0 02/16/19 02/16/19 19:40 19:40 WBC RBC Hgb Hct MCV MCH MCHC RDW Std Deviation RDW Coeff of Christin Plt Count MPV Immature Gran % (Auto) Neut % (Auto) Lymph % (Auto) [place] % (Auto) Eos % (Auto) Baso % (Auto) Immature Gran # (Auto) Neut # (Auto) Lymph # (Auto) [place] # (Auto) Eos # (Auto) Baso # (Auto) PT INR APTT PTT Ratio Sodium Potassium Chloride Carbon Dioxide Anion Gap BUN Creatinine Est Cr Clr Drug Dosing Est GFR ( Amer) Est GFR (Non-Af Amer) BUN/Creatinine Ratio Glucose Calcium Magnesium Total Bilirubin AST ALT Alkaline Phosphatase Total Protein Albumin Globulin Albumin/Globulin Ratio TSH Urine Color Dark Yellow Urine Appearance Clear Urine pH 5.0 Ur Specific [place] 1.034 H Urine Protein Trace H Urine Glucose (UA) Negative Urine Ketones Negative Urine Blood Negative Urine Nitrite Negative Urine Bilirubin Negative Urine Urobilinogen Negative Ur Leukocyte Esterase Negative Urine WBC (Auto) 1-5 Urine RBC (Auto) 0-4 U Hyaline Cast (Auto) 1-5 U Epithel Cells (Auto) 5-10 H Urine Bacteria (Auto) Negative Urine Crystals Not Reportable Calcium Oxalate Crystal Present A Salicylates Urine Opiates Screen Neg Ur Methadone, Qual Neg Acetaminophen Urine Barbiturates Neg Ur Phencyclidine (PCP) Neg U Amphetamin/Meth Scrn Neg MDMA (Ecstasy) Screen Neg U Benzodiazepines Scrn Neg Ur Cocaine Metabolite Neg U Marijuana (THC) Screen Neg Ethyl Alcohol mg/dL Current Inpatient Medications Current Inpatient Medications: Current Inpatient Medications Acetaminophen (Tylenol) 650 mg PO Q4H PRN PRN Reason: Headache or Minor Fever Stop: 03/19/19 01:15 Al Hydrox/Mg Hydrox/Simethicone (Maalox) 30 ml PO Q4H PRN PRN Reason: GI Upset Stop: 03/19/19 01:15 Last Admin: 02/17/19 08:47 Dose: 30 ml Documented by: Bismuth Subsalicylate (Kaopectate) 15 ml PO PRN PRN PRN Reason: Loose Stool Stop: 03/19/19 01:15 Magnesium Hydroxide (Milk Of Magnesia) 30 ml PO DAILY PRN PRN Reason: Heartburn Stop: 03/19/19 01:15 Sodium Chloride ([place] Nasal) 1 - 2 sprays NA PRN PRN PRN Reason: Nasal Dryness/Congestion Stop: 03/19/19 01:15 CPT Code CPT Code Initial Hospital Care: [id number]
[2019-02-17 10:36] LABS: INR 4.5 (0.9-1.1); Prothrombin Time 41.3 Seconds (9.0-12.0)
[2019-02-17] MEDS: SERTRALINE HCL 50 MG TABLET PO SCH (12:49)
[2019-02-17] MEDS: SIMVASTATIN 40 MG TAB PO SCH (21:09)
[2019-02-17] MEDS ORDERED: QUETIAPINE FUMARATE 25 MG TABLET PO SCH (22:00)
[2019-02-18 08:30] LABS: INR 3.1 (0.9-1.1); Prothrombin Time 29.5 Seconds (9.0-12.0)
[2019-02-18 08:42] LABS: Glucose Fasting 116 mg/dl (70-99)
[2019-02-18] MEDS: SERTRALINE HCL 50 MG TABLET PO SCH (08:44)
[2019-02-18 08:49] LABS: Chol HDL Ratio 4; Cholesterol 175 mg/dl (0-200); HDL Cholesterol 48 mg/dl; LDL Cholesterol Calculated 105 mg/dl; Triglycerides 108 mg/dl (0-150); VLDL Cholesterol 22 mg/dl
--- NOTE | 2019-02-18 09:49 | Psychiatric Progress Note ---
Date of Service February 18, 2019 Impression / Recommendations Impression 58-year-old single male with a history of severe recurrent depression with psychosis, anxiety NOS, PE/DVT on Coumadin, and noncompliance with mental health treatment who is admitted voluntarily after a suicide attempt by overdose on an unknown [id number]-[id number] sleeping medication (likely diphenhydramine or melatonin, as acetaminophen level was negative). He has a history of previous suicide attempt by overdose, and severe psychotic depression with multiple past hospitalizations, 2 courses of ECT, and noncompliance with outpatient treatment, which led to an involuntary outpatient commitment during his last psychiatric hospitalization here in 2015. He indicates that he dropped out of treatment and stopped medications and outpatient care years ago, and his recollection is that he was told he no longer needed treatment, which is highly unlikely. I suspect that he dropped out of treatment once he was no longer under an involuntary outpatient commitment, but we will attempt to clarify this with the county, and we will need to re-refer him for services and consider the need for another involuntary outpatient commitment. His INR is supratherapeutic, and discussed with Dr. Loyola, the director of the anticoagulation clinic, regarding the specific recommendations for that. This is likely due to his overdose, as his INR is typically stable, and represents another source of imminent risk and could lead to if not monitored and treated. He remains at imminent risk of , disability, or serious injury as a result of his psychiatric conditions, and inpatient treatment is least restrictive appropriate venue for care. (1) Intentional overdose of drug in tablet form: 02/17 - Patient reports intentional overdose on an unknown lulj-wel-gmyeddl sleep medication, is likely diphenhydramine or melatonin based on lack of an elevated acetaminophen level on his toxicology screen. -It would be helpful to identify a friend or family to go to his apartment and retrieve the medication, as well as any other medications in order to limit his access to large amounts of medications, given his history of at least 2 serious overdoses. -Ideally the patient's access to his Coumadin would be restricted, again due to the risk in overdose, but he lives alone and our ability to secure that medication after discharge may be limited. -Encourage group attendance and participation, work on healthy coping skills and a discharge safety plan. 02/18 - Suicidality and hopelessness is ongoing - "like the same as it was" (2) Depression: 02/17 -patient presents with severe depression and psychotic features. Cannot rule out a delusional disorder with respect to his chronically expressed belief that his life is doomed because he received the "bad feminine genes," while his brothers received the "good genes," who have had good health and lives. -Previous good response to quetiapine and sertraline, and the patient agrees to resume these medications to target mood, anxiety, sleep, and ruminations/delusions. -Start sertraline 50 mg daily and quetiapine 50 mg at bedtime with a repeat dose x1 as needed for sleep. We will titrate to previously effective doses of 200 mg every morning and 200 mg at bedtime, respectively. -Fasting lipid profile and glucose ordered for tomorrow morning for monitoring on an atypical antipsychotic. -Recommend family meeting with friend Luis Felipe and/or brothers. -Patient will need to be referred for outpatient services, including psychiatric care, therapy, and case management. Coordinate with the [facility] regarding his past treatment, specifically to clarify if he dropped out of treatment after his IOC , as this may argue toward the need for another IOC. -Explore ways to increase his supports in the community. 02/18 - Reviewed recommendation to continue titration of sertraline and quetiapine - patient only willing to increase one medication at this time, and chose q uetiapine. - Will increase quetiapine to 100mg this evening; continue sertraline at 50mg for now with ongoing titration of both as tolerated - Fasting labs reviewed - glucose elevated at 116; lipid panel WNL - Family meeting with brother scheduled for tomorrow - Continue to explore aftercare/discharge planning (3) Anxiety: 02/17 -patient endorses obsessional ruminations, but no compulsions, as well as some COSME symptoms. Has been diagnosed with anxiety NOS in the past. Previously responded well to sertraline, resume as above. -Hydroxyzine as needed for sleep and anxiety. -Work on healthy ways to cope with anxiety, and refer for outpatient therapy. (4) Anticoagulant long-term use: 02/17 -INR is typically stable in the 2-3 range, but has trended up over the past month, was 3.1 on 01/17/2019, 4.0 on 02/05/2019, and 4.5 in the ER yesterday. Rechecked this morning after discussing with Dr. Loyola, and it remains supratherapeutic at 4.5. Per her recommendations, will hold Coumadin and check daily PT and INR, and if it rises above 4.5, will treat with 5 mg of vitamin K p.o. She can be contacted for further recommendations if needed. 02/18 - Appreciate recommendations from Anticoagulation Clinic - Will continue daily PT and INR; improved today to 29.5 and 3.1 respectively - Recommendations are to resume home schedule starting this evening (5mg daily each day exception Thursday, when he receives 10mg - 65mg weekly total) - Additional recommendations available in Consultation note Inventory Assets Strengths: Compliance with medical appts, stable housing, supportive family Needs: Noncompliance with OP treatment, lack of supports Risk Factors Assessment Male: Yes : Yes Do You Have Access To A Gun?: No Health Problems: Yes Mental Health Diagnoses: Yes Substance Use Disorders: No Previous Attempt: Yes Family History of Suicide: No Previous Psychiatric Hospitalization: Yes Hopelessness: Yes Smoker: No Protective Factors Assessment Yarsani Beliefs: No : No Responsible for Young Children: No Employed: No Stable Relationships: No Supportive Family: Yes Good Rapport with Provider: No Interval History Identifying Information YINKA ROMERO is a 58-year-old M who currently lives in an [place] alone, has a history of recurrent, severe depression with psychosis, anxiety NOS, and history of DVT/PE on chronic anticoagulation, and was admitted on 02/17/19 00:37 on a 201 voluntary commitment for depression and suicidality, after an overdose on approximately 25 tabs of an unknown owdr-gud-fzlwmvj sleep medication. Chief Complaint "I'm no good." Review of Systems Notes Constitutional: reports difficulty sleeping last evening, roommate snoring; hot flashes/sweating last evening Cardiovascular: denied Respiratory: denied Gastrointestinal: denied Neurological: denied Psychiatric: denies symptoms other than stated above Total of at least 10 systems reviewed, pertinent positives as above and in HPI. Sleep Information Total Hours of Sleep: 5.5 Sleep Comments: pt on q-15 minute checks Meal Information Percent Meal Consumed - Breakfast: 75 Percent Meal Consumed - Lunch: 100 Percent Meal Consumed - Dinner: 100 Subjective Subjective Patient was seen & assessed and interval progress reviewed with Treatment Team. Staff reports the patient has had some group attendance, continuing to be focused on hopelessness and unfortunate circumstances he sees himself in. Pt was seen today to assess progress since admission. Pt states he is "no good" today. He states he hasn't been good in over 2 years. Pt feels as though his mood has not changed from yesterday and he continues to be rather hopeless. He states he did not sleep well last evening, partially blaming his roommate for snoring. He also states he became "really sweaty and hot" at one point last evening - believing it to be related to a medication. Pt was informed of recommendation to return to his previously stabilizing doses of sertraline and quetiapine; but he is only willing to increase one upon our discussion today - ultimately choosing quetiapine. He reports ongoing suicidality, unchanged from admission. He remains unable to contract for safety outside of the hospital setting. Pt denies other acute needs or concerns today. Physical Exam Psychiatric Orientation: alert, oriented x 3 and cooperative Apperance: appropriately dressed and + disheveled Eye Contact: + fair eye contact (often staring at floor) Motor Behavior: steady gait and station and no abnormal motor movements Speech: normal rate/rhythm/volume of speech (brief responses to questions) Affect: + depressed affect, + anxious affect and + constricted affect Mood: + depressed mood ("No good") and + anxious mood Thought Process: clear/coherent thought process and + perseveration Thought Content: + preoccupation and + obsessions (regarding health, reported to be of delusional proportions) Suicidal Thoughts: + reports suicidal thoughts Homicidal Thoughts: denies homicidal thoughts Cognition: language grossly intact; + attention not intact (long pauses with questions, does not answer questions directly) Insight: + impaired insight Judgement: + impaired judgement Vital Signs (Past 24 Hours) Last Vital Signs Temp 36.4 C L 02/18/19 07:00 Pulse 76 02/18/19 07:01 Resp 16 02/18/19 07:00 BP 152/94 H 02/18/19 07:01 Pulse Ox 96 02/17/19 01:23 Results & Data Laboratory Results Laboratory Results - last 24 hr 02/17/19 02/18/19 02/18/19 10:01 08:06 08:06 PT 41.3 H 29.5 H INR 4.5 H 3.1 H Fasting Glucose 116 H Triglycerides 108 Cholesterol 175 LDL Cholesterol, Calc 105 VLDL Cholesterol, Calc 22 HDL Cholesterol 48 Cholesterol/HDL Ratio 4 Current Inpatient Medications Current Inpatient Medications: Current Inpatient Medications Acetaminophen (Tylenol) 650 mg PO Q4H PRN PRN Reason: Headache or Minor Fever Stop: 03/19/19 01:15 Al Hydrox/Mg Hydrox/Simethicone (Maalox) 30 ml PO Q4H PRN PRN Reason: GI Upset Stop: 03/19/19 01:15 Last Admin: 02/17/19 08:47 Dose: 30 ml Documented by: Bismuth Subsalicylate (Kaopectate) 15 ml PO PRN PRN PRN Reason: Loose Stool Stop: 03/19/19 01:15 Magnesium Hydroxide (Milk Of Magnesia) 30 ml PO DAILY PRN PRN Reason: Heartburn Stop: 03/19/19 01:15 Quetiapine Fumarate (Seroquel) 50 mg PO HS [facility] Stop: 03/19/19 21:59 Last Admin: 02/17/19 21:09 Dose: 50 mg Documented by: Sertraline HCl (Zoloft) 50 mg PO QAM [facility] Stop: 03/19/19 10:44 Last Admin: 02/18/19 08:44 Dose: 50 mg Documented by: Simvastatin (Zocor) 40 mg PO HS [facility] Stop: 03/19/19 21:59 Last Admin: 02/17/19 21:09 Dose: 40 mg Documented by: Sodium Chloride (Weld Nasal) 1 - 2 sprays NA PRN PRN PRN Reason: Nasal Dryness/Congestion Stop: 03/19/19 01:15 Mental Health & Subst Abuse Tx Therapist Name of Therapist: none Casing Tester Name of Casing Tester: had one in the past, not interested now Post Discharge Appointments Primary Care Physician Name Of Family Doctor[place]. [place] [facility] [place] CPT Code CPT Code 30579 (1) Depression Active/Remission status: currently active Depression Type: major depressive disorder Major depression episode severity: severe Major depression recurrence: recurrent Psychotic features: with psychotic features Qualified Code(s): F33.3 - Major depressive disorder, recurrent, severe with psychotic symptoms
--- NOTE | 2019-02-18 14:51 | Consultation ---
Date of Consultation February 18, 2019 Assessment & Plan (1) Anticoagulant long-term use: The patient has been on a stable dose of warfarin, 65 mg/week, for quite some time. His INRs are typically therapeutic, He did have an INR drawn towards the end of January that was somewhat elevated at 4.0. His INR on admission to [facility] was 4.5, but has come down to 3.1 with held coumadin doses. Recommendations: -As his INR is declining and is now (nearly) in his therapeutic range, I would restart coumadin tonight with a 10 mg dose. -Lee typically takes 10 mg daily with the exception of Thursday, on which he takes 5 mg (total 65 mg/week). Iwould resume this dosing strategy. -While whatever he took may have had some immediate effect on the INR, he seems to have normalized rather quickly with held doses. I do believe it prudent to monitor his INR closely for now and would recommend daily INRs for the next several days of his hospitalization. Should he be here longer, a PT/INR every other day would be reasonable. -Depending on his discharge disposition and in the event of any medication changes, weekly INRs may be in order for a limited period of time after that. --Additionally, should Lee require longer term treatment at an outside facility, please let them know that our clinic will assist them in his managment, if they wish. They can contact the [facility] at [phone]. -Lee should have an appointment made with the [facility] Anticoagulation Clinic for soon after his discharge to home. Thank you for allowing us to participate in his care. Should additional assistance be required please call the clinic or my cell [phone]. Present on Admission?: Yes History of Present Illness 58 year old man with a history of multiple VTE events, longstanding [facility] Anticoagulation Clinic patient on warfarin, admitted to for overdose. Requesting Physician: Guera Loyola MD, PhD Reason for Consultation: Consulted for warfarin management Attending Physician: Ginger Vann MD Allergies Allergy/AdvReac Type Severity Reaction Status Date / Time rivaroxaban Allergy Severe tongue Verified 02/05/19 13:52 swelled, hands swelled, redness, itching Home Medications Home Medications Medication Instructions Recorded Confirmed Type warfarin 10 mg tablet 10 mg PO [id number] tab 04/13/18 02/16/19 History warfarin 5 mg PO WK 02/05/19 02/16/19 History simvastatin 40 mg tablet 40 mg PO HS #30 tab 02/15/19 02/16/19 Rx Patient History Medical History Left shoulder pain (Acute) Pulmonary embolism (Chronic) Depression (Chronic) Adverse reaction to drug (Acute) Bilateral pulmonary embolism Major depressive disorder, recurrent episode with anxious distress Right heart failure due to pulmonary hypertension Surgical History No pertinent past surgical history Family History Other No pertinent family history Social History Preferred Language: Divehi Communication Ability: Effective Visual Impairment: No Limitations Hearing Ability: Normal Armor Reconnaissance Specialist Required: No Beliefs That Will Affect Care: None Current Living Situation: Alone Feels Safe at Home: Yes Smoking Status: Former smoker Results & Data Vital Signs (Past 12 Hours) Vital Signs Temp Pulse Resp BP 02/18/19 07:01 76 152/94 H 02/18/19 07:00 36.4 C L 73 16 167/101 H Laboratory Results INR on admission to [facility] was 4.5 (reapeated). This morning his INR had dropped to 3.1 (therapeutic range is 2.0-3.0)/
[2019-02-18] MEDS: WARFARIN SOD 10 MG TAB PO SCH (16:04)
[2019-02-18] MEDS: QUETIAPINE FUMARATE 100 MG TABLET PO SCH (20:47)
[2019-02-18] MEDS: SIMVASTATIN 40 MG TAB PO SCH (20:47)
[2019-02-19 07:25] LABS: INR 2.6 (0.9-1.1); Prothrombin Time 25.1 Seconds (9.0-12.0)
[2019-02-19] MEDS: SERTRALINE HCL 50 MG TABLET PO SCH (09:42)
--- NOTE | 2019-02-19 13:25 | Psychiatric Progress Note ---
Date of Service February 19, 2019 Impression / Recommendations Impression 58-year-old single male with a history of severe recurrent depression with psychosis, anxiety NOS, PE/DVT on Coumadin, and noncompliance with mental health treatment who is admitted voluntarily after a suicide attempt by overdose on an unknown qyse-oga-zxwdcoe sleeping medication (likely diphenhydramine or melatonin, as acetaminophen level was negative). He has a history of previous suicide attempt by overdose, and severe psychotic depression with multiple past hospitalizations, 2 courses of ECT, and noncompliance with outpatient treatment, which led to an involuntary outpatient commitment during his last psychiatric hospitalization here in 2015. He presented with supratherapeutic INR. He remains at imminent risk of , disability, or serious injury as a result of his psychiatric conditions, and inpatient treatment is least restrictive level of care. (1) Intentional overdose of drug in tablet form: 02/17 - Patient reports intentional overdose on an unknown fsgx-oma-yoofkij sleep medication, is likely diphenhydramine or melatonin based on lack of an elevated acetaminophen level on his toxicology screen. -It would be helpful to identify a friend or family to go to his apartment and retrieve the medication, as well as any other medications in order to limit his access to large amounts of medications, given his history of at least 2 serious overdoses. -Ideally the patient's access to his Coumadin would be restricted, again due to the risk in overdose, but he lives alone and our ability to secure that medication after discharge may be limited. -Encourage group attendance and participation, work on healthy coping skills and a discharge safety plan. 02/18 - Suicidality and hopelessness is ongoing - "like the same as it was" (2) Depression: 02/17 -patient presents with severe depression and psychotic features. Cannot rule out a delusional disorder with respect to his chronically expressed belief that his life is doomed because he received the "bad feminine genes," while his brothers received the "good genes," who have had good health and lives. -Previous good response to quetiapine and sertraline, and the patient agrees to resume these medications to target mood, anxiety, sleep, and ruminations/delusions. -Start sertraline 50 mg daily and quetiapine 50 mg at bedtime with a repeat dose x1 as needed for sleep. We will titrate to previously effective doses of 200 mg every morning and 200 mg at bedtime, respectively. -Fasting lipid profile and glucose ordered for tomorrow morning for monitoring on an atypical antipsychotic. -Recommend family meeting with friend Luis Felipe and/or brothers. -Patient will need to be referred for outpatient services, including psychiatric care, therapy, and case management. Coordinate with the base service unit regarding his past treatment, specifically to clarify if he dropped out of treatment after his IOC , as this may argue toward the need for another IOC. -Explore ways to increase his supports in the community. 02/18 - Reviewed recommendation to continue titration of sertraline and quetiapine - patient only willing to increase one medication at this time, and chose quetiapine. - Will increase quetiapine to 100mg this evening; continue sertraline at 50mg for now with ongoing titration of both as tolerated - Fasting labs reviewed - glucose elevated at 116; lipid panel WNL - Family meeting with brother scheduled for tomorrow - Continue to explore aftercare/discharge planning 02/19 --slept better following increase in Seroquel, he is refusing additional titration today. (3) Anxiety: 02/17 -patient endorses obsessional ruminations, but no compulsions, as well as some COSME symptoms. Has been diagnosed with anxiety NOS in the past. Previously responded well to sertraline, resume as above. -Hydroxyzine as needed for sleep and anxiety. -Work on healthy ways to cope with anxiety, and refer for outpatient therapy. (4) Anticoagulant long-term use: 02/17 -INR is typically stable in the 2-3 range, but has trended up over the past month, was 3.1 on 01/17/2019, 4.0 on 02/05/2019, and 4.5 in the ER yesterday. Rechecked this morning after discussing with Dr. Loyola, and it remains supratherapeutic at 4.5. Per her recommendations, will hold Coumadin and check daily PT and INR, and if it rises above 4.5, will treat with 5 mg of vitamin K p.o. She can be contacted for further recommendations if needed. 02/18 - Appreciate recommendations from Anticoagulation Clinic - Will continue daily PT and INR; improved today to 29.5 and 3.1 respectively - Recommendations are to resume home schedule starting this evening (5mg daily each day exception Thursday, when he receives 10mg - 65mg weekly total) - Additional recommendations available in Consultation note Inventory Assets Strengths: Compliance with medical appts, stable housing, supportive family Needs: Noncompliance with OP treatment, lack of supports Risk Factors Assessment Male: Yes : Yes Do You Have Access To A Gun?: No Health Problems: Yes Mental Health Diagnoses: Yes Substance Use Disorders: No Previous Attempt: Yes Family History of Suicide: No Previous Psychiatric Hospitalization: Yes Hopelessness: Yes Smoker: No Protective Factors Assessment Yazdanism Beliefs: No : No Responsible for Young Children: No Employed: No Stable Relationships: No Supportive Family: Yes Good Rapport with Provider: No Interval History Identifying Information YINKA ROMERO is a 58-year-old M who currently lives in an [place] alone, has a history of recurrent, severe depression with psychosis, anxiety NOS, and history of DVT/PE on chronic anticoagulation, and was admitted on 02/17/19 00:37 on a 201 voluntary commitment for depression and suicidality, after an overdose on approximately 25 tabs of an unknown sptd-cda-qhqsczr sleep medication. Chief Complaint "My acne ruined my life". Review of Systems Sleep Information Total Hours of Sleep: 5.5 Sleep Comments: pt on q-15 minute checks. pt awoke x2,but appeared to be asleep within 1/2 hr thereafter. pt remained in room all shift. Meal Information Percent Meal Consumed - Breakfast: 100 Percent Meal Consumed - Lunch: 50 Percent Meal Consumed - Dinner: 100 Subjective Subjective Patient was seen & assessed and interval progress reviewed with Nursing and social work. Patient has been refusing groups and needs encouragement to come out of room, reports he can't function due to acne on his chest and believes it will spread to his face. He believes it is why he lost/couldn't continue his job and won't stop ruminating about it. He repeatedly requests tetracycline for what appear to be minor red papules on his chest, no pustules, clearly no rash. Reviewed that non-formulary but also can interact with Coumadin. He declined meeting with brother today. He is willing to discuss assisted living options. Physical Exam Psychiatric Orientation: alert Apperance: + disheveled Eye Contact: + fair eye contact Motor Behavior: steady gait and station Speech: normal rate/rhythm/volume of speech Affect: + depressed affect and + anxious affect Mood: + depressed mood Thought Process: + perseveration Thought Content: + delusions (somatic) "can't live like this", meaning outside of hospital support Homicidal Thoughts: denies homicidal thoughts Hallucinations: no auditory hallucinations and no visual hallucinations Cognition: language grossly intact Insight: + poor insight Judgement: + poor judgement Vital Signs (Past 24 Hours) Last Vital Signs Temp 36.4 C L 02/18/19 07:00 Pulse 83 02/19/19 09:50 Resp 18 02/19/19 09:50 BP 130/91 02/19/19 09:50 Pulse Ox 96 02/17/19 01:23 Results & Data Laboratory Results Laboratory Results - last 24 hr 02/19/19 07:05 PT 25.1 H INR 2.6 H Current Inpatient Medications Current Inpatient Medications: Current Inpatient Medications Acetaminophen (Tylenol) 650 mg PO Q4H PRN PRN Reason: Headache or Minor Fever Stop: 03/19/19 01:15 Al Hydrox/Mg Hydrox/Simethicone (Maalox) 30 ml PO Q4H PRN PRN Reason: GI Upset Stop: 03/19/19 01:15 Last Admin: 02/17/19 08:47 Dose: 30 ml Documented by: Bismuth Subsalicylate (Kaopectate) 15 ml PO PRN PRN PRN Reason: Loose Stool Stop: 03/19/19 01:15 Magnesium Hydroxide (Milk Of Magnesia) 30 ml PO DAILY PRN PRN Reason: Heartburn Stop: 03/19/19 01:15 Quetiapine Fumarate (Seroquel) 100 mg PO [facility] Stop: 03/20/19 21:59 Last Admin: 02/18/19 20:47 Dose: 100 mg Documented by: Sertraline HCl (Zoloft) 50 mg PO [facility] Stop: 03/19/19 10:44 Last Admin: 02/19/19 09:42 Dose: 50 mg Documented by: Simvastatin (Zocor) 40 mg PO [facility] Stop: 03/19/19 21:59 Last Admin: 02/18/19 20:47 Dose: 40 mg Documented by: Sodium Chloride ([place] Nasal) 1 - 2 sprays NA PRN PRN PRN Reason: Nasal Dryness/Congestion Stop: 03/19/19 01:15 Warfarin Sodium (Coumadin) 5 mg PO [email or web address]@[address] [facility] Stop: 03/22/19 15:59 Warfarin Sodium (Coumadin) 10 mg PO [email or web address]@[address] [facility] Stop: 03/20/19 15:59 Last Admin: 02/18/19 16:04 Dose: 10 mg Documented by: Mental Health & Subst Abuse Tx Therapist Name of Therapist: none Radiology Technician Name of Radiology Technician: had one in the past, not interested now Post Discharge Appointments Primary Care Physician Name Of Family Doctor: Dr. Todd [facility] [place]09 CPT Code CPT Code 02540 (1) Depression Depression Type: major depressive disorder Major depression recurrence: recurrent Active/Remission status: currently active Major depression episode severity: severe Psychotic features: with psychotic features Qualified Code(s): F33.3 - Major depressive disorder, recurrent, severe with psychotic symptoms
[2019-02-19] MEDS: WARFARIN SOD 10 MG TAB PO SCH (16:56)
[2019-02-19] MEDS: QUETIAPINE FUMARATE 100 MG TABLET PO SCH (21:20)
[2019-02-19] MEDS: SIMVASTATIN 40 MG TAB PO SCH (21:20)
[2019-02-20 07:02] LABS: INR 2.9 (0.9-1.1); Prothrombin Time 27.7 Seconds (9.0-12.0)
[2019-02-20] MEDS: SERTRALINE HCL 50 MG TABLET PO SCH (08:34)
--- NOTE | 2019-02-20 09:05 | Psychiatric Progress Note ---
Date of Service February 20, 2019 Impression / Recommendations Impression 58-year-old single male with a history of severe recurrent depression with psychosis, anxiety NOS, PE/DVT on Coumadin, and noncompliance with mental health treatment who is admitted voluntarily after a suicide attempt by overdose on an unknown zzkk-iay-fkttjyu sleeping medication (likely diphenhydramine or melatonin, as acetaminophen level was negative). He has a history of previous suicide attempt by overdose, and severe psychotic depression with multiple past hospitalizations, 2 courses of ECT, and noncompliance with outpatient treatment, which led to an involuntary outpatient commitment during his last psychiatric hospitalization here in 2015. He presented with supratherapeutic INR. He remains at imminent risk of , disability, or serious injury as a result of his psychiatric conditions, and inpatient treatment is least restrictive level of care. 02/20--less perseverative today following normalization of sleep. (1) Intentional overdose of drug in tablet form: 02/17 - Patient reports intentional overdose on an unknown irhd-lue-ozsdvsj sleep medication, is likely diphenhydramine or melatonin based on lack of an elevated acetaminophen level on his toxicology screen. -It would be helpful to identify a friend or family to go to his apartment and retrieve the medication, as well as any other medications in order to limit his access to large amounts of medications, given his history of at least 2 serious overdoses. -Ideally the patient's access to his Coumadin would be restricted, again due to the risk in overdose, but he lives alone and our ability to secure that medication after discharge may be limited. -Encourage group attendance and participation, work on healthy coping skills and a discharge safety plan. 02/18 - Suicidality and hopelessness is ongoing - "like the same as it was" (2) Depression: 02/17 -patient presents with severe depression and psychotic features. Cannot rule out a delusional disorder with respect to his chronically expressed belief that his life is doomed because he received the "bad feminine genes," while his brothers received the "good genes," who have had good health and lives. -Previous good response to quetiapine and sertraline, and the patient agrees to resume these medications to target mood, anxiety, sleep, and ruminations/delusions. -Start sertraline 50 mg daily and quetiapine 50 mg at bedtime with a repeat dose x1 as needed for sleep. We will titrate to previously effective doses of 200 mg every morning and 200 mg at bedtime, respectively. -Fasting lipid profile and glucose ordered for tomorrow morning for monitoring on an atypical antipsychotic. -Recommend family meeting with friend Luis Felipe and/or brothers. -Patient will need to be referred for outpatient services, including psychiatric care, therapy, and case management. Coordinate with the base service unit regarding his past treatment, specifically to clarify if he dropped out of treatment after his IOC , as this may argue toward the need for another IOC. -Explore ways to increase his supports in the community. 02/18 - Reviewed recommendation to continue titration of sertraline and quetiapine - patient only willing to increase one medication at this time, and chose quetiapine. - Will increase quetiapine to 100mg this evening; continue sertraline at 50mg for now with ongoing titration of both as tolerated - Fasting labs reviewed - glucose elevated at 116; lipid panel WNL - Family meeting with brother scheduled for tomorrow - Continue to explore aftercare/discharge planning 02/19 --slept better following increase in Seroquel, he is refusing additional titration today. 02/20 --titrate Zoloft to 100 mg, patient agreed. (3) Anxiety: 02/17 -patient endorses obsessional ruminations, but no compulsions, as well as some COSME symptoms. Has been diagnosed with anxiety NOS in the past. Previously responded well to sertraline, resume as above. -Hydroxyzine as needed for sleep and anxiety. -Work on healthy ways to cope with anxiety, and refer for outpatient therapy. (4) Anticoagulant long-term use: 02/17 -INR is typically stable in the 2-3 range, but has trended up over the past month, was 3.1 on 01/17/2019, 4.0 on 02/05/2019, and 4.5 in the ER yesterday. Rechecked this morning after discussing with Dr. Loyola, and it remains supratherapeutic at 4.5. Per her recommendations, will hold Coumadin and check daily PT and INR, and if it rises above 4.5, will treat with 5 mg of vitamin K p.o. She can be contacted for further recommendations if needed. 02/18 - Appreciate recommendations from Anticoagulation Clinic - Will continue daily PT and INR; improved today to 29.5 and 3.1 respectively - Recommendations are to resume home schedule starting this evening (5mg daily each day exception Thursday, when he receives 10mg - 65mg weekly total) - Additional recommendations available in Consultation note Inventory Assets Strengths: Compliance with medical appts, stable housing, supportive family Needs: Noncompliance with OP treatment, lack of supports Risk Factors Assessment Male: Yes : Yes Do You Have Access To A Gun?: No Health Problems: Yes Mental Health Diagnoses: Yes Substance Use Disorders: No Previous Attempt: Yes Family History of Suicide: No Previous Psychiatric Hospitalization: Yes Hopelessness: Yes Smoker: No Protective Factors Assessment Latter Day Beliefs: No : No Responsible for Young Children: No Employed: No Stable Relationships: No Supportive Family: Yes Good Rapport with Provider: No Interval History Identifying Information YINKA ROMERO is a 58-year-old M who currently lives in an [place] alone, has a history of recurrent, severe depression with psychosis, anxiety NOS, and history of DVT/PE on chronic anticoagulation, and was admitted on 02/17/19 00:37 on a 201 voluntary commitment for depression and suicidality, after an overdose on approximately 25 tabs of an unknown xpkd-zgb-nrltyaz sleep medication. Chief Complaint "I'm feeling better today, I'd like to go bowling". Review of Systems Sleep Information Total Hours of Sleep: 7.5 Sleep Comments: pt on q-15 minute checks Meal Information Percent Meal Consumed - Breakfast: 100 Percent Meal Consumed - Lunch: 50 Percent Meal Consumed - Dinner: 100 Subjective Subjective Patient was seen & assessed and interval progress reviewed with Nursing and social work. Patient remained perseverative throughout the day yesterday. In evening c/o neck discomfort which he reports has resolved. He denies any jaw pain or difficulty swallowing at that time. He made comments that his twin brother had sat on his neck in utero last night. He did not mention his acne today which was >30 min of his time with me yesterday. He attributes the improvement to sleeping well again. Reviewed that he should start attending groups and work on safety plan to demonstrate readiness for discharge. Physical Exam Vital Signs (Past 24 Hours) Last Vital Signs Temp 36.6 C 02/20/19 06:52 Pulse 93 H 02/20/19 06:53 Resp 18 02/20/19 06:52 BP 141/91 H 02/20/19 06:53 Pulse Ox 96 02/17/19 01:23 Results & Data Laboratory Results Laboratory Results - last 24 hr 02/20/19 06:34 PT 27.7 H INR 2.9 H Current Inpatient Medications Current Inpatient Medications: Current Inpatient Medications Acetaminophen (Tylenol) 650 mg PO Q4H PRN PRN Reason: Headache or Minor Fever Stop: 03/19/19 01:15 Al Hydrox/Mg Hydrox/Simethicone (Maalox) 30 ml PO Q4H PRN PRN Reason: GI Upset Stop: 03/19/19 01:15 Last Admin: 02/17/19 08:47 Dose: 30 ml Documented by: Bismuth Subsalicylate (Kaopectate) 15 ml PO PRN PRN PRN Reason: Loose Stool Stop: 03/19/19 01:15 Magnesium Hydroxide (Milk Of Magnesia) 30 ml PO DAILY PRN PRN Reason: Heartburn Stop: 03/19/19 01:15 Quetiapine Fumarate (Seroquel) 100 mg PO [facility] Stop: 03/20/19 21:59 Last Admin: 02/19/19 21:20 Dose: 100 mg Documented by: Sertraline HCl (Zoloft) [address] [facility] Stop: 03/19/19 10:44 Last Admin: 02/20/19 08:34 Dose: 50 mg Documented by: Simvastatin (Zocor) 40 mg PO [facility] Stop: 03/19/19 21:59 Last Admin: 02/19/19 21:20 Dose: 40 mg Documented by: Sodium Chloride ([place] Nasal) 1 - 2 sprays NA PRN PRN PRN Reason: Nasal Dryness/Congestion Stop: 03/19/19 01:15 Warfarin Sodium (Coumadin) 5 mg PO [email or web address]@[address] [facility] Stop: 03/22/19 15:59 Warfarin Sodium (Coumadin) 10 mg PO [email or web address] [facility] Stop: 03/20/19 15:59 Last Admin: 02/19/19 16:56 Dose: 10 mg Documented by: Mental Health & Subst Abuse Tx Therapist Name of Therapist: none Circus Supervisor Name of Circus Supervisor: had one in the past, not interested now Post Discharge Appointments Primary Care Physician Name Of Family Doctor[place] Dr. [place] [facility] [place] CPT Code CPT Code 52157 (1) Depression Depression Type: major depressive disorder Major depression recurrence: recurrent Active/Remission status: currently active Major depression episode severity: severe Psychotic features: with psychotic features Qualified Code(s): F33.3 - Major depressive disorder, recurrent, severe with psychotic symptoms
[2019-02-20] MEDS ORDERED: SERTRALINE HCL 50 MG TABLET PO ONE (09:07)
[2019-02-20] MEDS ORDERED: WARFARIN SOD 5 MG TAB PO SCH (16:00)
[2019-02-20] MEDS: SIMVASTATIN 40 MG TAB PO SCH (21:06)
[2019-02-20] MEDS: QUETIAPINE FUMARATE 100 MG TABLET PO SCH (21:06)
[2019-02-21 07:53] LABS: INR 3.3 (0.9-1.1); Prothrombin Time 30.7 Seconds (9.0-12.0)
[2019-02-21] MEDS: SERTRALINE HCL 100 MG TABLET PO SCH (08:31)
--- NOTE | 2019-02-21 15:09 | Psychiatric Progress Note ---
Date of Service February 21, 2019 Impression / Recommendations Impression 58-year-old single male with a history of severe recurrent depression with psychosis, anxiety NOS, PE/DVT on Coumadin, and noncompliance with mental health treatment who is admitted voluntarily after a suicide attempt by overdose on an unknown [id number]-[id number] sleeping medication (likely diphenhydramine or melatonin, as acetaminophen level was negative). He has a history of previous suicide attempt by overdose, and severe psychotic depression with multiple past hospitalizations, 2 courses of ECT, and noncompliance with outpatient treatment, which led to an involuntary outpatient commitment during his last psychiatric hospitalization here in 2015. He presented with supratherapeutic INR. He remains severely depressed, and is now refusing medication and isolated in his room, and as he remains at imminent risk of , disability, or serious injury as a result of his psychiatric conditions, inpatient treatment is least restrictive level of care. (1) Intentional overdose of drug in tablet form: 02/17 - Patient reports intentional overdose on an unknown lvli-fzb-jdcjkby sleep medication, is likely diphenhydramine or melatonin based on lack of an elevated acetaminophen level on his toxicology screen. -It would be helpful to identify a friend or family to go to his apartment and retrieve the medication, as well as any other medications in order to limit his access to large amounts of medications, given his history of at least 2 serious overdoses. -Ideally the patient's access to his Coumadin would be restricted, again due to the risk in overdose, but he lives alone and our ability to secure that medication after discharge may be limited. -Encourage group attendance and participation, work on healthy coping skills and a discharge safety plan. 02/18 - Suicidality and hopelessness is ongoing - "like the same as it was" 02/21 - SI and hopelessness ongoing. (2) Depression: 02/17 -patient presents with severe depression and psychotic features. Cannot rule out a delusional disorder with respect to his chronically expressed belief that his life is doomed because he received the "bad feminine genes," while his brothers received the "good genes," who have had good health and lives. -Previous good response to quetiapine and sertraline, and the patient agrees to resume these medications to target mood, anxiety, sleep, and ruminations/delusions. -Start sertraline 50 mg daily and quetiapine 50 mg at bedtime with a repeat dose x1 as needed for sleep. We will titrate to previously effective doses of 200 mg every morning and 200 mg at bedtime, respectively. -Fasting lipid profile and glucose ordered for tomorrow morning for monitoring on an atypical antipsychotic. -Recommend family meeting with friend Luis Felipe and/or brothers. -Patient will need to be referred for outpatient services, including psychiatric care, therapy, and case management. Coordinate with the [facility] service [facility] regarding his past treatment, specifically to clarify if he dropped out of treatment after his IOC , as this may argue toward the need for another IOC. -Explore ways to increase his supports in the community. 02/18 - Reviewed recommendation to continue titration of sertraline and quetiapine - patient only willing to increase one medication at this time, and chose quetiapine. - Will increase quetiapine to 100mg this evening; continue sertraline at 50mg for now with ongoing titration of both as tolerated - Fasting labs reviewed - glucose elevated at 116; lipid panel WNL - Family meeting with brother scheduled for tomorrow - Continue to explore aftercare/discharge planning 02/19 --slept better following increase in Seroquel, he is refusing additional titration today. 02/20 --titrate Zoloft to 100 mg, patient agreed. 02/21 - Patient refused sertraline this AM due to severe depression and not wanting to have to take meds. Continue to educate and offer medication, continue 302 and meds over objection if continues to refuse treatment. Encourage him to be out of his room and to attend groups. -Continue sertraline 100 mg at bedtime; he has refused further titration, but previously did well on 200 mg at bedtime. Sleep is improving. -Patient refused a family meeting, and we will continue to discuss and explore this with him, as he would clearly benefit from increased outpatient supports and socialization. (3) Anxiety: 02/17 -patient endorses obsessional ruminations, but no compulsions, as well as some COSME symptoms. Has been diagnosed with anxiety NOS in the past. Previously responded well to sertraline, resume as above. -Hydroxyzine as needed for sleep and anxiety. -Work on healthy ways to cope with anxiety, and refer for outpatient therapy. (4) Anticoagulant long-term use: 02/17 -INR is typically stable in the 2-3 range, but has trended up over the past month, was 3.1 on 01/17/2019, 4.0 on 02/05/2019, and 4.5 in the ER yesterday. Rechecked this morning after discussing with Dr. Loyola, and it remains supratherapeutic at 4.5. Per her recommendations, will hold Coumadin and check daily PT and INR, and if it rises above 4.5, will treat with 5 mg of vitamin K p.o. She can be contacted for further recommendations if needed. 02/18 - Appreciate recommendations from Anticoagulation Clinic - Will continue daily PT and INR; improved today to 29.5 and 3.1 respectively - Recommendations are to resume home schedule starting this evening (5mg daily each day exception Thursday, when he receives 10mg - 65mg weekly total) - Additional recommendations available in Consultation note 02/21 -INR was 2.6 and 2.9 the last 2 days, and today is 3.3. Continue with daily INRs and adjust Coumadin as needed. Inventory Assets Strengths: Compliance with medical appts, stable housing, supportive family Needs: Noncompliance with OP treatment, lack of supports Risk Factors Assessment Male: Yes : Yes Do You Have Access To A Gun?: No Health Problems: Yes Mental Health Diagnoses: Yes Substance Use Disorders: No Previous Attempt: Yes Family History of Suicide: No Previous Psychiatric Hospitalization: Yes Hopelessness: Yes Smoker: No Protective Factors Assessment Mormonism Beliefs: No : No Responsible for Young Children: No Employed: No Stable Relationships: No Supportive Family: Yes Good Rapport with Provider: No Interval History Identifying Information YINKA ROMERO is a 58-year-old M who currently lives in an [place] alone, has a history of recurrent, severe depression with psychosis, anxiety NOS, and history of DVT/PE on chronic anticoagulation, and was admitted on 02/17/19 00:37 on a 201 voluntary commitment for depression and suicidality, after an overdose on approximately 25 tabs of an unknown rgnp-ffj-wdbuxpi sleep medication. Chief Complaint "Worse, just don't feel good". Review of Systems Sleep Information Total Hours of Sleep: 10.5 Sleep Comments: pt appeared to sleep 3.5 hrs during evening shift. pt on q-15 minute checks Meal Information Percent Meal Consumed - Breakfast: 100 Percent Meal Consumed - Lunch: 100 Percent Meal Consumed - Dinner: 100 Subjective Subjective Patient was seen & assessed and interval progress reviewed with Nursing and social work. Staff report he has been isolating more, refusing groups, not bathing or putting on clean clothes, and this morning he refused his medication. On my assessment, he was retrieved from bed where he was lying down but awake. He reports mood is worse, thinks he is deteriorating physically because his vision is blurry and he feels more SOB, unsure how long these things have been going on or how often they occur. He reports low mood, hopelessness, and ongoing suicidality, "I hope I soon, tired of fighting." He says he refused medications because "I'm sick of taking medicine." He feels he has "lost all my strength" and doesn't believe there is any chance he'll improve. He thinks he needs to "go to a home, my body's gone kapoosh suddenly, can't take care of myself." He had a visit from his friend Luis Felipe over the weekend which was "okay," but says his family "doesn't come too much." Physical Exam Psychiatric Orientation: alert partially cooperative Overweight, wearing scrub pants and a t-shirt, hair unkempt and sticking up, unshaven, wearing glasses. Seated in NAD, breathing unlabored, head bowed, looking into his lap. Eye Contact: + poor eye contact Motor Behavior: steady gait and station, no abnormal motor movements and + psychomotor retardation Monotone Affect: + depressed affect, + constricted affect and mood congruent with affect Mood: + depressed mood Thought Process: + perseveration (on getting "all the bad genes" and worthlessness); + thought process not linear or logical Thought Content: + preoccupation, + delusions, + hopelessness and + worthlessness Suicidal Thoughts: + reports suicidal thoughts Homicidal Thoughts: denies homicidal thoughts Hallucinations: no auditory hallucinations and no visual hallucinations Cognition: attention grossly intact and language grossly intact Insight: + severely impaired insight Judgement: + severely impaired judgement Vital Signs (Past 24 Hours) Last Vital Signs Temp 36.6 C 02/20/19 06:52 Pulse 102 H 02/20/19 13:58 Resp 18 02/20/19 06:52 BP 124/87 02/20/19 13:58 Pulse Ox 96 02/17/19 01:23 Results & Data Laboratory Results Laboratory Results - last 24 hr 02/21/19 07:21 PT 30.7 H INR 3.3 H Current Inpatient Medications Current Inpatient Medications: Current Inpatient Medications Acetaminophen (Tylenol) 650 mg PO Q4H PRN PRN Reason: Headache or Minor Fever Stop: 03/19/19 01:15 Al Hydrox/Mg Hydrox/Simethicone (Maalox) 30 ml PO Q4H PRN PRN Reason: GI Upset Stop: 03/19/19 01:15 Last Admin: 02/17/19 08:47 Dose: 30 ml Documented by: Bismuth Subsalicylate (Kaopectate) 15 ml PO PRN PRN PRN Reason: Loose Stool Stop: 03/19/19 01:15 Magnesium Hydroxide (Milk Of Magnesia) 30 ml PO DAILY PRN PRN Reason: Heartburn Stop: 03/19/19 01:15 Quetiapine Fumarate (Seroquel) 100 mg PO [facility] Stop: 03/20/19 21:59 Last Admin: 02/20/19 21:06 Dose: 100 mg Documented by: Sertraline HCl (Zoloft) 100 mg PO [facility] Stop: 03/23/19 08:59 Last Admin: 02/21/19 08:31 Dose: Not Given Documented by: Simvastatin (Zocor) 40 mg PO [facility] Stop: 03/19/19 21:59 Last Admin: 02/20/19 21:06 Dose: 40 mg Documented by: Sodium Chloride ([place] Nasal) 1 - 2 sprays NA PRN PRN PRN Reason: Nasal Dryness/Congestion Stop: 03/19/19 01:15 Warfarin Sodium (Coumadin) 5 mg PO Antoine@[address] [facility] Stop: 03/22/19 15:59 Last Admin: 02/20/19 15:40 Dose: 5 mg Documented by: Warfarin Sodium (Coumadin) 10 mg PO MoTuWeThFrSa@[address] [facility] Stop: 03/20/19 15:59 Last Admin: 02/19/19 16:56 Dose: 10 mg Documented by: Mental Health & Subst Abuse Tx Psychiatrist Name of Psychiatrist: [facility] - Dr. Harrington Psychiatrist's Psychiatric Appointment Comment: [address], [place], [place] Therapist Name of Therapist: Sarwat Proof Load Mechanic Name of Proof Load Mechanic: Sarwat Post Discharge Appointments Primary Care Physician Name Of Family Doctor: [facility] Date of Appointment with PCP: 03/09/19 Provider Appointment Comment: [address] [place] [id number] Contact Information Discharge Discharge [address]: [address] [place] [address], [address], [place] [address] CPT Code CPT Code 79165 (1) Depression Depression Type: major depressive disorder Major depression recurrence: recurrent Active/Remission status: currently active Major depression episode severity: severe Psychotic features: with psychotic features Qualified Code(s): F33.3 - Major depressive disorder, recurrent, severe with psychotic symptoms
[2019-02-21] MEDS: WARFARIN SOD 10 MG TAB PO SCH (17:01)
[2019-02-21] MEDS: QUETIAPINE FUMARATE 100 MG TABLET PO SCH (21:48)
[2019-02-21] MEDS: SIMVASTATIN 40 MG TAB PO SCH (21:49)
[2019-02-22 08:00] LABS: INR 4.1 (0.9-1.1); Prothrombin Time 37.7 Seconds (9.0-12.0)
[2019-02-22] MEDS: SERTRALINE HCL 100 MG TABLET PO SCH (08:51)
--- NOTE | 2019-02-22 09:28 | Consultation ---
Date of Consultation February 22, 2019 Assessment & Plan (1) Anticoagulant long-term use: The patient has been on a stable dose of warfarin, 65 mg/week, for quite some time. His INRs are typically therapeutic, He did have an INR drawn towards the end of January that was somewhat elevated at 4.0. His INR on admission to [facility] was 4.5, but has come down to 3.1 with held coumadin doses. Recommendations: -As his INR is declining and is now (nearly) in his therapeutic range, I would restart coumadin tonight with a 10 mg dose. -Lee typically takes 10 mg daily with the exception of Thursday, on which he takes 5 mg (total 65 mg/week). Iwould resume this dosing strategy. -While whatever he took may have had some immediate effect on the INR, he seems to have normalized rather quickly with held doses. I do believe it prudent to monitor his INR closely for now and would recommend daily INRs for the next several days of his hospitalization. Should he be here longer, a PT/INR every other day would be reasonable. -Depending on his discharge disposition and in the event of any medication changes, weekly INRs may be in order for a limited period of time after that. --Additionally, should Lee require longer term treatment at an outside facility, please let them know that our clinic will assist them in his managment, if they wish. They can contact the [facility] at [phone]. -Lee should have an appointment made with the [facility]ticoagulation [facility] for soon after his discharge to home. Thank you for allowing us to participate in his care. Should additional assistance be required please call the clinic or my cell [phone]. Follow up note of 02/22/19 INR is supratherapeutic at 4.1 today. Please hold today's warfarin dose and resume warfarin therapy at 60 mg/week (5 mg Thursday and Thursday and 10 mg all other days). This is an ~8% reduction in his weekly dose. Continue daily INRs. Will follow with you. History of Present Illness Attending Physician: Ginger Vann MD Allergies Allergy/AdvReac Type Severity Reaction Status Date / Time rivaroxaban Allergy Severe tongue Verified 02/05/19 13:52 swelled, hands swelled, redness, itching Home Medications Home Medications Medication Instructions Recorded Confirmed Type warfarin 10 mg tablet 10 mg PO [id number] tab 04/13/18 02/16/19 History warfarin 5 mg PO WK 02/05/19 02/16/19 History simvastatin 40 mg tablet 40 mg PO HS #30 tab 02/15/19 02/16/19 Rx Patient History Medical History Left shoulder pain (Acute) Pulmonary embolism (Chronic) Depression (Chronic) Adverse reaction to drug (Acute) Bilateral pulmonary embolism Major depressive disorder, recurrent episode with anxious distress Right heart failure due to pulmonary hypertension Surgical History No pertinent past surgical history Family History Other No pertinent family history Social History Preferred Language: Hond[place] Communication Ability: Effective Visual Impairment: No Limitations Hearing Ability: Normal Motorcycle Service Technician Required: No Beliefs That Will Affect Care: None Current Living Situation: Alone Feels Safe at Home: Yes Smoking Status: Former smoker Results & Data Laboratory Results INR 4.1
--- NOTE | 2019-02-22 13:03 | Psychiatric Progress Note ---
Date of Service February 22, 2019 Impression / Recommendations Impression 58-year-old single male with a history of severe recurrent depression with psychosis, anxiety NOS, PE/DVT on Coumadin, and noncompliance with mental health treatment who is admitted voluntarily after a suicide attempt by overdose on an unknown fqrm-hpt-gfyuroz sleeping medication (likely diphenhydramine or melatonin, as acetaminophen level was negative). He has a history of previous suicide attempt by overdose, and severe psychotic depression with multiple past hospitalizations, 2 courses of ECT, and noncompliance with outpatient treatment, which led to an involuntary outpatient commitment during his last psychiatric hospitalization here in 2015. He presented with supratherapeutic INR. He remains severely depressed, and is now refusing medication and isolated in his room, and as he remains at imminent risk of , disability, or serious injury as a result of his psychiatric conditions, inpatient treatment is least restrictive level of care. Pt was informed today that his behavior is not conducive to voluntary admission (refusing medications, refusing recommended medication changes, refusing groups, refusing lunch today, refusing family meeting). If necessary, and in order to protect patient's overall condition, an involuntary inpatient commitment may need to be explored. (1) Intentional overdose of drug in tablet form: 02/17 - Patient reports intentional overdose on an unknown kyer-frd-pwjqzba sleep medication, is likely diphenhydramine or melatonin based on lack of an elevated acetaminophen level on his toxicology screen. -It would be helpful to identify a friend or family to go to his apartment and retrieve the medication, as well as any other medications in order to limit his access to large amounts of medications, given his history of at least 2 serious overdoses. -Ideally the patient's access to his Coumadin would be restricted, again due to the risk in overdose, but he lives alone and our ability to secure that medication after discharge may be limited. -Encourage group attendance and participation, work on healthy coping skills and a discharge safety plan. 02/18 - Suicidality and hopelessness is ongoing - "like the same as it was" 02/21 - SI and hopelessness ongoing. (2) Depression: 02/17 -patient presents with severe depression and psychotic features. Cannot rule out a delusional disorder with respect to his chronically expressed belief that his life is doomed because he received the "bad feminine genes," while his brothers received the "good genes," who have had good health and lives. -Previous good response to quetiapine and sertraline, and the patient agrees to resume these medications to target mood, anxiety, sleep, and ruminations/delusions. -Start sertraline 50 mg daily and quetiapine 50 mg at bedtime with a repeat dose x1 as needed for sleep. We will titrate to previously effective doses of 200 mg every morning and 200 mg at bedtime, respectively. -Fasting lipid profile and glucose ordered for tomorrow morning for monitoring on an atypical antipsychotic. -Recommend family meeting with friend Luis Felipe and/or brothers. -Patient will need to be referred for outpatient services, including psychiatric care, therapy, and case management. Coordinate with the base service [facility] regarding his past treatment, specifically to clarify if he dropped out of treat ment after his IOC , as this may argue toward the need for another IOC. -Explore ways to increase his supports in the community. 02/18 - Reviewed recommendation to continue titration of sertraline and quetiapine - patient only willing to increase one medication at this time, and chose quetiapine. - Will increase quetiapine to 100mg this evening; continue sertraline at 50mg for now with ongoing titration of both as tolerated - Fasting labs reviewed - glucose elevated at 116; lipid panel WNL - Family meeting with brother scheduled for tomorrow - Continue to explore aftercare/discharge planning 02/19 --slept better following increase in Seroquel, he is refusing additional titration today. 02/20 --titrate Zoloft to 100 mg, patient agreed. 02/21 - Patient refused sertraline this AM due to severe depression and not wanting to have to take meds. Continue to educate and offer medication, continue 302 and meds over objection if continues to refuse treatment. Encourage him to be out of his room and to attend groups. -Continue sertraline 100 mg at bedtime; he has refused further titration, but previously did well on 200 mg at bedtime. Sleep is improving. -Patient refused a family meeting, and we will continue to discuss and explore this with him, as he would clearly benefit from increased outpatient supports and socialization. 02/22 - Pt took sertraline 100mg this AM, but continues to refuse recommendation for continued titration of medications to previously stabilizing doses - and unable to provide rational reasoning for his refusal - Will order 150mg of quetiapine for this evening, and 150mg of sertraline for tomorrow morning - patient was informed of this change being made. If refusal, patient can be offered his previous doses of 100mg of each of the above medications - Will consider possible need to pursue involuntary inpatient commitment, as patient's behavior is not conducive with his current voluntary status and he is making not improvements - Continue to encourage a family meeting prior to discharge (3) Anxiety: 02/17 -patient endorses obsessional ruminations, but no compulsions, as well as some COSME symptoms. Has been diagnosed with anxiety NOS in the past. Previously responded well to sertraline, resume as above. -Hydroxyzine as needed for sleep and anxiety. -Work on healthy ways to cope with anxiety, and refer for outpatient therapy. (4) Anticoagulant long-term use: 02/17 -INR is typically stable in the 2-3 range, but has trended up over the past month, was 3.1 on 01/17/2019, 4.0 on 02/05/2019, and 4.5 in the ER yesterday. Rechecked this morning after discussing with Dr. Loyola, and it remains supratherapeutic at 4.5. Per her recommendations, will hold Coumadin and check daily PT and INR, and if it rises above 4.5, will treat with 5 mg of vitamin K p.o. She can be contacted for further recommendations if needed. 02/18 - Appreciate recommendations from Anticoagulation Clinic - Will continue daily PT and INR; improved today to 29.5 and 3.1 respectively - Recommendations are to resume home schedule starting this evening (5mg daily each day exception Thursday, when he receives 10mg - 65mg weekly total) - Additional recommendations available in Consultation note 02/21 -INR was 2.6 and 2.9 the last 2 days, and today is 3.3. Continue with daily INRs and adjust Coumadin as needed. 02/22 - Psychiatrist reviewed with Dr. Loyola as INR 4.1 today. She recommended holding Coumadin today, resume tomorrow at lower dose of 5mg daily Antoine and W, and 10mg on M, T, , F, Sa. Continue daily INRs. Inventory Assets Strengths: Compliance with medical appts, stable housing, supportive family Needs: Noncompliance with OP treatment, lack of supports Risk Factors Assessment Male: Yes : Yes Do You Have Access To A Gun?: No Health Problems: Yes Mental Health Diagnoses: Yes Substance Use Disorders: No Previous Attempt: Yes Family History of Suicide: No Previous Psychiatric Hospitalization: Yes Hopelessness: Yes Smoker: No Protective Factors Assessment Sikhism Beliefs: No : No Responsible for Young Children: No Employed: No Stable Relationships: No Supportive Family: Yes Good Rapport with Provider: No Interval History Identifying Information YINKA ROMERO is a 58-year-old M who currently lives in an [place] alone, has a history of recurrent, severe depression with psychosis, anxiety NOS, and history of DVT/PE on chronic anticoagulation, and was admitted on 02/17/19 00:37 on a 201 voluntary commitment for depression and suicidality, after an overdose on approximately 25 tabs of an unknown pqic-dtj-gwzucee sleep medication. Chief Complaint "I just got out of my routine. I don't know, I just lay in bed and think about how stupid that was." Review of Systems Notes Constitutional: reports ongoing anxiety, belief he has "skin acne" Cardiovascular: denied Respiratory: denied Gastrointestinal: denied Neurological: denied Psychiatric: denies symptoms other than stated above Total of at least 10 systems reviewed, pertinent positives as above and in HPI. Sleep Information Total Hours of Sleep: 8.75 Sleep Comments: pt appeared to sleep 1.75 hrs during evening shift. pt on q-15 minute checks Meal Information Percent Meal Consumed - Breakfast: 100 Percent Meal Consumed - Lunch: 100 Percent Meal Consumed - Dinner: 100 Nutrition Comment: per meal record Subjective Subjective Patient was seen & assessed and interval progress reviewed with nursing and social work. Staff reports the patient had refused his dose of sertraline yesterday and was not regularly attending groups. He is appearing "stuck", continuing to verbalize comments of "older - sicker" and belief he received the "bad genes." Pt was seen today to assess progress since admission. Pt states, "I can't believe I did this, I just needed to keep up with my routine. I'm so stupid." Pt's logic was difficult to follow, but reported anxiety today is surrounding his reasoning for stopping medications. It appears patient believes his previous trial of sertraline and quetiapine had cause "oily skin and acne" as well as "yellow teeth." Pt states many times during our encounter, "I could have just had my teeth cleaned, but instead I stopped the medications and got ou t of my routine." Pt was encouraged multiple times to "restart his routine" and was recommended to attend groups as a way to create more structure to his day. He declines, stating it won't be helpful, "I just need to get home and back to my routine, why did I stop, I'm so stupid." Pt continued to ruminate about the loss of his routine as well as needing "tetra-glycline" for his "skin acne". Th is provider attempted to reassure patient that the acne he reports is not as prominent as he believes (and is actually not visualized at all by this prescriber). Pt continues to ruminate, despite this provider's attempts to redirect his thought. Pt was informed of our concerns that his current behavior (refusing medications, refusing recommended titration to previously stabilizing doses, refusal of groups, refusal of a family meeting) is not conducive with a voluntary admission status. Pt was encouraged to work on these things, and was informed that if necessary an involuntary commitment could be pursued if patient was not better able to engage in treatment. Pt continued to ruminate, seemingly unaffected by this conversation. Physical Exam Psychiatric Orientation: alert; + uncooperative Apperance: appropriately dressed (casually in t-shirt and scrub pants) and + disheveled (hair is unkempt, unshaven) Eye Contact: + poor eye contact (keeps eyes closed for the majority of encounter) Motor Behavior: no abnormal motor movements (observed while laying in bed) Speech: normal rate/rhythm/volume of speech Affect: + depressed affect, + anxious affect and + constricted affect Mood: + depressed mood ("I'm just out of routine, why did I do that, I'm so stupid") Thought Process: + perseveration (on being "out of routine", and perceived medication side effects); + thought process not linear or logical Thought Content: + preoccupation, + delusions, + hopelessness and + worthlessness Suicidal Thoughts: + reports suicidal thoughts Homicidal Thoughts: denies homicidal thoughts Hallucinations: no auditory hallucinations and no visual hallucinations Cognition: language grossly intact; + attention not intact Estimated Intelligence: consistent with education level Insight: + severely impaired insight Judgement: + severely impaired judgement Vital Signs (Past 24 Hours) Last Vital Signs Temp 36.6 C 02/20/19 06:52 Pulse 102 H 02/20/19 13:58 Resp 18 02/20/19 06:52 BP 124/87 02/20/19 13:58 Pulse Ox 96 02/17/19 01:23 Results & Data Laboratory Results Laboratory Results - last 24 hr 02/22/19 07:03 PT 37.7 H INR 4.1 H Current Inpatient Medications Current Inpatient Medications: Current Inpatient Medications Acetaminophen (Tylenol) 650 mg PO Q4H PRN PRN Reason: Headache or Minor Fever Stop: 03/19/19 01:15 Al Hydrox/Mg Hydrox/Simethicone (Maalox) 30 ml PO Q4H PRN PRN Reason: GI Upset Stop: 03/19/19 01:15 Last Admin: 02/17/19 08:47 Dose: 30 ml Documented by: Bismuth Subsalicylate (Kaopectate) 15 ml PO PRN PRN PRN Reason: Loose Stool Stop: 03/19/19 01:15 Magnesium Hydroxide (Milk Of Magnesia) 30 ml PO DAILY PRN PRN Reason: Heartburn Stop: 03/19/19 01:15 Quetiapine Fumarate (Seroquel) 100 mg PO [facility] Stop: 03/20/19 21:59 Last Admin: 02/21/19 21:48 Dose: 100 mg Documented by: Sertraline HCl (Zoloft) 100 mg PO [facility] Stop: 03/23/19 08:59 Last Admin: 02/22/19 08:51 Dose: 100 mg Documented by: Simvastatin (Zocor) 40 mg PO [facility] Stop: 03/19/19 21:59 Last Admin: 02/21/19 21:49 Dose: 40 mg Documented by: Sodium Chloride ([place] Nasal) 1 - 2 sprays NA PRN PRN PRN Reason: Nasal Dryness/Congestion Stop: 03/19/19 01:15 Mental Health & Subst Abuse Tx Psychiatrist Name of Psychiatrist: [facility] - Dr. Harrington Psychiatrist's Psychiatric Appointment Comment: [address], [place], [place] Therapist Name of Therapist: Declines Certified Shorthand Reporter Name of Certified Shorthand Reporter: Declines Post Discharge Appointments Primary Care Physician Name Of Family Doctor: [facility] Date of Appointment with PCP: 03/09/19 Provider Appointment Comment: [address] [place] [id number] Contact Information Discharge Discharge Address: [address] [place], [place] [address]AL[facility] CPT Code CPT Code 75754 (1) Depression Active/Remission status: currently active Depression Type: major depressive disorder Major depression episode severity: severe Major depression recurrence: recurrent Psychotic features: with psychotic features Qualified Code(s): F33.3 - Major depressive disorder, recurrent, severe with psychotic symptoms
--- NOTE | 2019-02-22 14:41 | Communication Note ---
Date of Service: February 22, [address] Loyola as INR 4.1 today. She recommended holding Coumadin today, resume tomorrow at lower dose of 5mg daily Antoine and W, and 10mg on , , , , . Continue daily INRs.
[2019-02-22] MEDS: SIMVASTATIN 40 MG TAB PO SCH (20:41)
[2019-02-22] MEDS: QUETIAPINE FUMARATE 100 MG TABLET PO SCH (20:42)
[2019-02-23 07:31] LABS: INR 3.3 (0.9-1.1); Prothrombin Time 30.7 Seconds (9.0-12.0)
--- NOTE | 2019-02-23 08:23 | Psychiatric Progress Note ---
Date of Service February 23, 2019 Impression / Recommendations Impression 58-year-old single male with a history of severe recurrent depression with psychosis, anxiety NOS, PE/DVT on Coumadin, and noncompliance with mental health treatment who is admitted voluntarily after a suicide attempt by overdose on an unknown [id number] sleeping medication (likely diphenhydramine or melatonin, as acetaminophen level was negative). He has a history of previous suicide attempt by overdose, and severe psychotic depression with multiple past hospitalizations, 2 courses of ECT, and noncompliance with outpatient treatment, which led to an involuntary outpatient commitment during his last psychiatric hospitalization here in 2015. He presented with supratherapeutic INR. He remains severely depressed, is refusing groups and isolating in his room, and will not agreed to referrals for outpatient treatment, with circular reasoning about why he does not need it (he feels better, he will need it, but nothing helps him to feel better). He remains at risk of , disability, or serious injury as a result of his psychiatric conditions, and inpatient treatment is least restrictive level of care. Today I will file for a 304 involuntary commitment hearing to be held next week, given his lack of progress with treatment, recently refusing medications, recommended medication changes, groups, referrals for outpatient care, and a family meeting. We will continue to encourage him to engage fully in treatment. (1) Intentional overdose of drug in tablet form: 02/17 - Patient reports intentional overdose on an unknown pzhk-xfy-bdffoys sleep medication, is likely diphenhydramine or melatonin based on lack of an elevated acetaminophen level on his toxicology screen. -It would be helpful to identify a friend or family to go to his apartment and retrieve the medication, as well as any other medications in order to limit his access to large amounts of medications, given his history of at least 2 serious overdoses. -Ideally the patient's access to his Coumadin would be restricted, again due to the risk in overdose, but he lives alone and our ability to secure that medication after discharge may be limited. -Encourage group attendance and participation, work on healthy coping skills and a discharge safety plan. 02/18 - Suicidality and hopelessness is ongoing - "like the same as it was" 02/21 - SI and hopelessness ongoing. (2) Depression: 02/17 -patient presents with severe depression and psychotic features. Cannot rule out a delusional disorder with respect to his chronically expressed belief that his life is doomed because he received the "bad feminine genes," while his brothers received the "good genes," who have had good health and lives. -Previous good response to quetiapine and sertraline, and the patient agrees to resume these medications to target mood, anxiety, sleep, and ruminations/delusions. -Start sertraline 50 mg daily and quetiapine 50 mg at bedtime with a repeat dose x1 as needed for sleep. We will titrate to previously effective doses of 200 mg every morning and 200 mg at bedtime, respectively. -Fasting lipid profile and glucose ordered for tomorrow morning for monitoring on an atypical antipsychotic. -Recommend family meeting with friend Luis Felipe and/or brothers. -Patient will need to be referred for outpatient services, including psychiatric care, therapy, and case management. Coordinate with the [facility] service [facility] regarding his past treatment, specifically to clarify if he dropped out of treatment after his IOC , as this may argue toward the need for another IOC. -Explore ways to increase his supports in the community. 02/18 - Reviewed recommendation to continue titration of sertraline and quetiapine - patient only willing to increase one medication at this time, and chose quetiapine. - Will increase quetiapine to 100mg this evening; continue sertraline at 50mg for now with ongoing titration of both as tolerated - Fasting labs reviewed - glucose elevated at 116; lipid panel WNL - Family meeting with brother scheduled for tomorrow - Continue to explore aftercare/discharge planning 02/19 --slept better following increase in Seroquel, he is refusing additional titration today. 02/20 --titrate Zoloft to 100 mg, patient agreed. 02/21 - Patient refused sertraline this AM due to severe depression and not wanting to have to take meds. Continue to educate and offer medication, continue 302 and meds over objection if continues to refuse treatment. Encourage him to be out of his room and to attend groups. -Continue sertraline 100 mg at bedtime; he has refused further titration, but previously did well on 200 mg at bedtime. Sleep is improving. -Patient refused a family meeting, and we will continue to discuss and explore this with him, as he would clearly benefit from increased outpatient supports and socialization. 02/22 - Pt took sertraline 100mg this AM, but continues to refuse recommendation for continued titration of medications to previously stabilizing doses - and unable to provide rational reasoning for his refusal - Will order 150mg of quetiapine for this evening, and 150mg of sertraline for tomorrow morning - patient was informed of this change being made. If refusal, patient can be offered his previous doses of 100mg of each of the above medications - Will consider possible need to pursue involuntary inpatient commitment, as patient's behavior is not conducive with his current voluntary status and he is making not improvements - Continue to encourage a family meeting prior to discharge 02/23 -Medications increased as above. File for 304 involuntary commitment. Discussed this with patient, including that we may need to refer him for long- term inpatient treatment if he remains unwilling to fully engage in treatment and work on discharge planning. (3) Anxiety: 02/17 -patient endorses obsessional ruminations, but no compulsions, as well as some COSME symptoms. Has been diagnosed with anxiety NOS in the past. Previously responded well to sertraline, resume as above. -Hydroxyzine as needed for sleep and anxiety. -Work on healthy ways to cope with anxiety, and refer for outpatient therapy. (4) Anticoagulant long-term use: 02/17 -INR is typically stable in the 2-3 range, but has trended up over the past month, was 3.1 on 01/17/2019, 4.0 on 02/05/2019, and 4.5 in the ER yesterday. Rechecked this morning after discussing with Dr. Loyola, and it remains supratherapeutic at 4.5. Per her recommendations, will hold Coumadin and check daily PT and INR, and if it rises above 4.5, will treat with 5 mg of vitamin K p.o. She can be contacted for further recommendations if needed. 02/18 - Appreciate recommendations from Anticoagulation Clinic - Will continue daily PT and INR; improved today to 29.5 and 3.1 respectively - Recommendations are to resume home schedule starting this evening (5mg daily each day exception Thursday, when he receives 10mg - 65mg weekly total) - Additional recommendations available in Consultation note 02/21 -INR was 2.6 and 2.9 the last 2 days, and today is 3.3. Continue with daily INRs and adjust Coumadin as needed. 02/22 - Psychiatrist reviewed with Dr. Loyola as INR 4.1 today. She recommended holding Coumadin today, resume tomorrow at lower dose of 5mg daily Antoine and W, and 10mg on , , , , . Continue daily INRs. 02/23 -Resume Coumadin at lower dose as above, continue daily INR Inventory Assets Strengths: Compliance with medical appts, stable housing, supportive family Needs: Noncompliance with OP treatment, lack of supports Risk Factors Assessment Male: Yes : Yes Do You Have Access To A Gun?: No Health Problems: Yes Mental Health Diagnoses: Yes Substance Use Disorders: No Previous Attempt: Yes Family History of Suicide: No Previous Psychiatric Hospitalization: Yes Hopelessness: Yes Smoker: No Protective Factors Assessment Sabianist Beliefs: No : No Responsible for Young Children: No Employed: No Stable Relationships: No Supportive Family: Yes Good Rapport with Provider: No Interval History Identifying Information YINKA ROMERO is a 58-year-old M who currently lives in an [place] alone, has a history of recurrent, severe depression with psychosis, anxiety NOS, and history of DVT/PE on chronic anticoagulation, and was admitted on 02/17/19 00:37 on a 201 voluntary commitment for depression and suicidality, after an overdose on approximately 25 tabs of an unknown tnmf-ryo-yuwuhdi sleep medication. Chief Complaint "Not too great I guess". Review of Systems Sleep Information Total Hours of Sleep: 4.25 Sleep Comments: trouble falling back to sleep when awake at 0230. appeared to be asleep at 0600 Meal Information Percent Meal Consumed - Breakfast: 100 Percent Meal Consumed - Lunch: 80 Percent Meal Consumed - Dinner: 100 Nutrition Comment: per meal record Subjective Subjective Patient was seen & assessed and interval progress reviewed with treatment team. Staff report he remains depressed and psychotic, was isolating in his room and obsessing that his skin was oily and breaking out, which he believed was a result of his medication, although staff indicated no change in his appearance and no evidence of skin problems. He was unable to reality test. He appeared very distressed, and refused multiple groups yesterday. He has been compliant with medications, other than 02/21/2019 when he refused his antidepressant. His sleep was disrupted last night. On my assessment, he was seen in his room, where he has returned to bed after breakfast. He admits to ongoing depression, stating that mood is "the same." He says he spent all day in bed yesterday, as he was feeling so depressed, and does not feel able to get up, get out of bed, or do anything. He said he felt better briefly, for a part of 1 day over the weekend, but then "something changed, I just felt worse." He perseverates on co ncerns that he may get side effects to medications, as he thinks that he had acne when he took Zoloft in the past. Discussed recommendations for an outpatient commitment, and that we have not been able to start discharge planning as he refused to sign releases to allow referrals for therapy and case management. He says that he does not think he needs aftercare because he was feeling good in the past, and because he is "here for stupid reasons." He says that if he "has a pill that works, I won't need it (outpatient treatment)." He is unable to commit to engaging fully in treatment or working on discharge planning. Informed him that we will schedule a 304 involuntary commitment hearing for sometime next week, and will let him know once it is scheduled. Physical Exam Psychiatric Orientation: alert and cooperative Apperance: appropriately dressed and + disheveled In bed, but awake. Eye Contact: + poor eye contact Motor Behavior: steady gait and station and no abnormal motor movements Speech: normal rate/rhythm/volume of speech Affect: + depressed affect, + constricted affect and mood congruent with affect Mood: + depressed mood Thought Process: + perseveration Circular reasoning, irrational Thought Content: + hopelessness, + worthlessness, + guilt and + self deprecation Suicidal Thoughts: + reports suicidal thoughts "Life is not worth living." Homicidal Thoughts: denies homicidal thoughts Hallucinations: no auditory hallucinations and no visual hallucinations Cognition: recent memory grossly intact, attention grossly intact and language grossly intact Insight: + impaired insight Judgement: + impaired judgement Vital Signs (Past 24 Hours) Last Vital Signs Temp 36.3 C L 02/23/19 06:37 Pulse 109 H 02/23/19 06:37 Resp 18 02/23/19 06:37 BP 121/88 02/23/19 06:37 Pulse Ox 96 02/17/19 01:23 Results & Data Laboratory Results Laboratory Results - last 24 hr 02/23/19 07:09 PT 30.7 H INR 3.3 H Current Inpatient Medications Current Inpatient Medications: Current Inpatient Medications Acetaminophen (Tylenol) 650 mg PO Q4H PRN PRN Reason: Headache or Minor Fever Stop: 03/19/19 01:15 Al Hydrox/Mg Hydrox/Simethicone (Maalox) 30 ml PO Q4H PRN PRN Reason: GI Upset Stop: 03/19/19 01:15 Last Admin: 02/17/19 08:47 Dose: 30 ml Documented by: Bismuth Subsalicylate (Kaopectate) 15 ml PO PRN PRN PRN Reason: Loose Stool Stop: 03/19/19 01:15 Magnesium Hydroxide (Milk Of Magnesia) 30 ml PO DAILY PRN PRN Reason: Heartburn Stop: 03/19/19 01:15 Quetiapine Fumarate (Seroquel) 150 mg PO [facility] Stop: 03/24/19 21:59 Last Admin: 02/22/19 20:42 Dose: 150 mg Documented by: Sertraline HCl (Zoloft) 150 mg PO [facility] Stop: 03/25/19 08:59 Simvastatin (Zocor) 40 mg PO [facility] Stop: 03/19/19 21:59 Last Admin: 02/22/19 20:41 Dose: 40 mg Documented by: Sodium Chloride (Gosper Nasal) 1 - 2 sprays NA PRN PRN PRN Reason: Nasal Dryness/Congestion Stop: 03/19/19 01:15 Warfarin Sodium (Coumadin) 10 mg PO [id number] [facility] Stop: 03/24/19 15:59 Warfarin Sodium (Coumadin) 5 mg PO [id number] [facility] Stop: 03/25/19 15:59 Mental Health & Subst Abuse Tx Psychiatrist Name of Psychiatrist: [facility] - Dr. Harrington Psychiatrist's Psychiatric Appointment Comment: [address], [place], [place] Therapist Name of Therapist: Declines Sawmill Hand Name of Sawmill Hand: Declines Post Discharge Appointments Primary Care Physician Name Of Family Doctor: [facility] Date of Appointment with PCP: 03/09/19 Provider Appointment Comment: [address] [place] [address] [place] [address] Contact Information Discharge Discharge Address: [address] [place] [address], [address], [place] [address] CPT Code CPT Code 64593 (1) Depression Active/Remission status: currently active Depression Type: major depressive disorder Major depression episode severity: severe Major depression recurrence: recurrent Psychotic features: with psychotic features Qualified Code(s): F33.3 - Major depressive disorder, recurrent, severe with psychotic symptoms
[2019-02-23] MEDS: SERTRALINE HCL 50 MG TABLET PO SCH (10:06)
[2019-02-23] MEDS ORDERED: WARFARIN SOD 5 MG TAB PO SCH (16:00)
[2019-02-23] MEDS: QUETIAPINE FUMARATE 100 MG TABLET PO SCH (21:47)
[2019-02-23] MEDS: SIMVASTATIN 40 MG TAB PO SCH (21:47)
[2019-02-24 08:17] LABS: INR 2.1 (0.9-1.1); Prothrombin Time 20.4 Seconds (9.0-12.0)
[2019-02-24] MEDS: SERTRALINE HCL 50 MG TABLET PO SCH (09:10)
--- NOTE | 2019-02-24 10:16 | Psychiatric Progress Note ---
Date of Service February 24, 2019 Impression / Recommendations Impression 58-year-old single male with a history of severe recurrent depression with psychosis, anxiety NOS, PE/DVT on Coumadin, and noncompliance with mental health treatment who is admitted voluntarily after a suicide attempt by overdose on an unknown [id number] sleeping medication (likely diphenhydramine or melatonin, as acetaminophen level was negative). He has a history of previous suicide attempt by overdose, and severe psychotic depression with multiple past hospitalizations, 2 courses of ECT, and noncompliance with outpatient treatment, which led to an involuntary outpatient commitment during his last psychiatric hospitalization here in 2015. He presented with supratherapeutic INR, and Coumadin has been adjusted. He remains depressed, refusing groups at times, and isolating in his room, and would not agreed to referrals for outpatient treatment, with circular reasoning about why he does not need it (he feels better, he will need it, but nothing helps him to feel better), so a 304 commitment hearing was scheduled for next week. If he improved sufficiently, we can transition to an involuntary outpatient commitment and discharge him after the hearing. He remains at risk of , disability, or serious injury as a result of his psychiatric conditions, and inpatient treatment is least restrictive level of care. We will continue to encourage him to engage fully in treatment, except referrals for case management, therapy, and psychiatric care, and to have a family meeting with his brother and/or friends. In the past, he complied with outpatient treatment while on an involuntary outpatient commitment, but stopped medications and stopped attending appointments as soon as it lapsed, so we are again pursuing this as a way to keep him stable and in treatment and decrease his risk of suicide, which is high without appropriate treatment. (1) Intentional overdose of drug in tablet form: 02/17 - Patient reports intentional overdose on an unknown [id number] sleep medication, is likely diphenhydramine or melatonin based on lack of an elevated acetaminophen level on his toxicology screen. -It would be helpful to identify a friend or family to go to his apartment and retrieve the medication, as well as any other medications in order to limit his access to large amounts of medications, given his history of at least 2 serious overdoses. -Ideally the patient's access to his Coumadin would be restricted, again due to the risk in overdose, but he lives alone and our ability to secure that medication after discharge may be limited. -Encourage group attendance and participation, work on healthy coping skills and a discharge safety plan. 02/18 - Suicidality and hopelessness is ongoing - "like the same as it was" 02/21 - SI and hopelessness ongoing. 02/24 - hopelessness continues, but slight improvement, and willing to work toward a plan for discharge on an involuntary outpatient commitment next week. He indicates that he is looking forward to starting a [employer] soon. (2) Depression: 02/17 -patient presents with severe depression and psychotic features. Cannot rule out a delusional disorder with respect to his chronically expressed belief that his life is doomed because he received the "bad feminine genes," while his brothers received the "good genes," who have had good health and lives. -Previous good response to quetiapine and sertraline, and the patient agrees to resume these medications to target mood, anxiety, sleep, and ruminations/delusions. -Start sertraline 50 mg daily and quetiapine 50 mg at bedtime with a repeat dose x1 as needed for sleep. We will titrate to previously effective doses of 200 mg every morning and 200 mg at bedtime, respectively. -Fasting lipid profile and glucose ordered for tomorrow morning for monitoring on an atypical antipsychotic. -Recommend family meeting with friend Luis Felipe and/or brothers. -Patient will need to be referred for outpatient services, including psychiatric care, therapy, and case management. Coordinate with the base service unit regarding his past treatment, specifically to clarify if he dropped out of treatment after his IOC , as this may argue toward the need for another IOC. -Explore ways to increase his supports in the community. 02/18 - Reviewed recommendation to continue titration of sertraline and quetiapine - patient only willing to increase one medication at this time, and chose quetiapine. - Will increase quetiapine to 100mg this evening; continue sertraline at 50mg for now with ongoing titration of both as tolerated - Fasting labs reviewed - glucose elevated at 116; lipid panel WNL - Family meeting with brother scheduled for tomorrow - Continue to explore aftercare/discharge planning 02/19 --slept better following increase in Seroquel, he is refusing additional titration today. 02/20 --titrate Zoloft to 100 mg, patient agreed. 02/21 - Patient refused sertraline this AM due to severe depression and not wanting to have to take meds. Continue to educate and offer medication, continue 302 and meds over objection if continues to refuse treatment. Encourage him to be out of his room and to attend groups. -Continue sertraline 100 mg at bedtime; he has refused further titration, but previously did well on 200 mg at bedtime. Sleep is improving. -Patient refused a family meeting, and we will continue to discuss and explore this with him, as he would clearly benefit from increased outpatient supports and socialization. 02/22 - Pt took sertraline 100mg this AM, but continues to refuse recommendation for continued titration of medications to previously stabilizing doses - and unable to provide rational reasoning for his refusal - Will order 150mg of quetiapine for this evening, and 150mg of sertraline for tomorrow morning - patient was informed of this change being made. If refusal, patient can be offered his previous doses of 100mg of each of the above medications - Will consider possible need to pursue involuntary inpatient commitment, as patient's behavior is not conducive with his current voluntary status and he is making not improvements - Continue to encourage a family meeting prior to discharge 02/23 -Medications increased as above. File for 304 involuntary commitment. Discussed this with patient, including that we may need to refer him for long-t erm inpatient treatment if he remains unwilling to fully engage in treatment and work on discharge planning. 02/24 -Continue current medications and continue to discuss increase to 200 mg sertraline, which today the patient declined. -Recommend involving his supports and a family meeting prior to discharge. Refer for outpatient treatment. 304 hearing 03/02/2019. (3) Anxiety: 02/17 -patient endorses obsessional ruminations, but no compulsions, as well as some COSME symptoms. Has been diagnosed with anxiety NOS in the past. Previously responded well to sertraline, resume as above. -Hydroxyzine as needed for sleep and anxiety. -Work on healthy ways to cope with anxiety, and refer for outpatient therapy. (4) Anticoagulant long-term use: 02/17 -INR is typically stable in the 2-3 range, but has trended up over the past month, was 3.1 on 01/17/2019, 4.0 on 02/05/2019, and 4.5 in the ER yesterday. Rechecked this morning after discussing with Dr. Loyola, and it remains supratherapeutic at 4.5. Per her recommendations, will hold Coumadin and check daily PT and INR, and if it rises above 4.5, will treat with 5 mg of vitamin K p.o. She can be contacted for further recommendations if needed. 02/18 - Appreciate recommendations from Anticoagulation Clinic - Will continue daily PT and INR; improved today to 29.5 and 3.1 respectively - Recommendations are to resume home schedule starting this evening (5mg daily each day exception Thursday, when he receives 10mg - 65mg weekly total) - Additional recommendations available in Consultation note 02/21 -INR was 2.6 and 2.9 the last 2 days, and today is 3.3. Continue with daily INRs and adjust Coumadin as needed. 02/22 - Psychiatrist reviewed with Dr. Loyola as INR 4.1 today. She recommended holding Coumadin today, resume tomorrow at lower dose of 5mg daily Antoine and , and 10mg on , , , , . Continue daily INRs. 02/23 -Resume Coumadin at lower dose as above, continue daily INR 02/24 -INR 3.3 yesterday, and 2.1 today. Continue Coumadin with daily labs. Inventory Assets Strengths: Compliance with medical appts, stable housing, supportive family Needs: Noncompliance with OP treatment, lack of supports Risk Factors Assessment Male: Yes : Yes Do You Have Access To A Gun?: No Health Problems: Yes Mental Health Diagnoses: Yes Substance Use Disorders: No Previous Attempt: Yes Family History of Suicide: No Previous Psychiatric Hospitalization: Yes Hopelessness: Yes Smoker: No Protective Factors Assessment Hinduism Beliefs: No : No Responsible for Young Children: No Employed: No Stable Relationships: No Supportive Family: Yes Good Rapport with Provider: No Interval History Identifying Information YINKA ROMERO is a 58-year-old M who currently lives in an [place] alone, has a history of recurrent, severe depression with psychosis, anxiety NOS, and history of DVT/PE on chronic anticoagulation, and was admitted on 02/17/19 00:37 on a 201 voluntary commitment for depression and suicidality, after an overdose on approximately 25 tabs of an unknown lceu-bme-ejiyesf sleep medication. Chief Complaint "Tired, ". Review of Systems Sleep Information Total Hours of Sleep: 6.75 Sleep Comments: trouble falling back to sleep when awake at 0230. appeared to be asleep at 0600 Meal Information Percent Meal Consumed - Breakfast: 100 Percent Meal Consumed - Lunch: 100 Percent Meal Consumed - Dinner: 100 Nutrition Comment: per meal record Subjective Subjective Patient was seen & assessed and interval progress reviewed with nursing and social work. His INR today is 2.1. He requested an appointment to be set up with his PCP for acne, and is scheduled 03/09/2019. He remained isolated in his room in bed yesterday, refusing groups, and was fixated on the 304 hearing, stating that he thought he would be in the hospital for another 90 days, despite being told that his estimated length of stay was 6-8 days, and that the plan was to transition to an involuntary outpatient treatment. He rated his mood a 3 out of 10, and reported feeling frustrated. He told his friend who visited last ev ening that he was going to be here for another 90 days because he "screwed up again." He endorsed ruminations about how bad his life has been and hopelessness. On my assessment, he reports mood is "tired," and remains low, "the same." He reports anxiety "came back," and again references the day he briefly felt better and was hoping for discharge, but it only lasted hours. He is focused on "the worst mistakes of my life" that he's made, and hopelessness that he will ever improve. He believes he started feeling worse because he "went back to my room and lay down, if I just wouldn't have done that, I'd be fine." He reports loneliness and lack of friends, but when asked discloses that a different friend, Josias, visited him last night. He admits this helps his mood "a little." Appetite is good, and is eating well. He says groups are "they do a good job, but not for me, since I thought I was gonna get out, now it's just a huge let down." Again explained the 304 commitment and that although it lasts for 90 days, it can be transitioned to outpatient when he is ready to leave. He says he "only needs medication for panic attacks." He denies panic attacks here in the hospital, "whatever you gave me those first couple days, I felt tremendous." He says he wants to be taken off all medications except something for panic. Again explained that his SSRI and quetiapine are being used to targe t depression and anxiety, and that he has the best chance of symptom control if he takes them both daily at effective doses. He denies any current side effects. He had SI yesterday "when I thought I wasn't gonna get out for 2 months, thought I was gonna lose everything." He states he likes his apartment, and is going to start [employer] soon which he enjoys. Physical Exam Psychiatric Orientation: alert, oriented x 3 and cooperative Apperance: appropriately dressed, appropriately groomed and appeared stated age Eye Contact: + poor eye contact Motor Behavior: steady gait and station and no abnormal motor movements Speech: normal rate/rhythm/volume of speech Affect: + depressed affect, + anxious affect and + irritable affect Mood: + depressed mood and + anxious mood Thought Process: + circumstantial thought process circular reasoning Thought Content: + delusions, + hopelessness, + worthlessness, + guilt and + self deprecation Suicidal Thoughts: denies suicidal thoughts Homicidal Thoughts: denies homicidal thoughts Hallucinations: no auditory hallucinations and no visual hallucinations Cognition: language grossly intact; + recent memory not intact Insight: + limited insight Judgement: + limited judgement Vital Signs (Past 24 Hours) Last Vital Signs Temp 36.3 C L 02/23/19 06:37 Pulse 109 H 02/23/19 06:37 Resp 18 02/23/19 06:37 BP 121/88 02/23/19 06:37 Pulse Ox 96 02/17/19 01:23 Results & Data Laboratory Results Laboratory Results - last 24 hr 02/24/19 07:42 PT 20.4 H INR 2.1 H Current Inpatient Medications Current Inpatient Medications: Current Inpatient Medications Acetaminophen (Tylenol) 650 mg PO Q4H PRN PRN Reason: Headache or Minor Fever Stop: 03/19/19 01:15 Al Hydrox/Mg Hydrox/Simethicone (Maalox) 30 ml PO Q4H PRN PRN Reason: GI Upset Stop: 03/19/19 01:15 Last Admin: 02/17/19 08:47 Dose: 30 ml Documented by: Bismuth Subsalicylate (Kaopectate) 15 ml PO PRN PRN PRN Reason: Loose Stool Stop: 03/19/19 01:15 Magnesium Hydroxide (Milk Of Magnesia) 30 ml PO DAILY PRN PRN Reason: Heartburn Stop: 03/19/19 01:15 Quetiapine Fumarate (Seroquel) 150 mg PO [facility] Stop: 03/24/19 21:59 Last Admin: 02/23/19 21:47 Dose: 150 mg Documented by: [facility]ertraline [facility] ([facility]ft) [facility] Stop: 03/25/19 08:59 Last Admin: 02/24/19 09:10 Dose: 150 mg Documented by: Simvastatin (Zocor) 40 mg PO [facility] Stop: 03/19/19 21:59 Last Admin: 02/23/19 21:47 Dose: 40 mg Documented by: Sodium Chloride ([place] Nasal) 1 - 2 sprays NA PRN PRN PRN Reason: Nasal Dryness/Congestion Stop: 03/19/19 01:15 Warfarin Sodium (Coumadin) 10 mg PO [id number] [facility] Stop: 03/24/19 15:59 Warfarin Sodium (Coumadin) 5 mg PO [id number]@1600 [facility] Stop: 03/25/19 15:59 Last Admin: 02/23/19 16:05 Dose: 5 mg Documented by: Mental Health & Subst Abuse Tx Psychiatrist Name of Psychiatrist: [facility] - Dr. Harrington Psychiatrist's Psychiatric Appointment Comment: [address] [place] [address], [place], [place] Therapist Name of Therapist: Declines Fiber Glass Worker Name of Fiber Glass Worker: Declines Post Discharge Appointments Primary Care Physician Name Of Family Doctor: [facility] Date of Appointment with PCP: 03/09/19 Time of Appointment with PCP: 12pm Provider Appointment Comment: [address] [place] [address] [place] [address] Contact Information Discharge Discharge Address: [address] [place], [place] [id number] CPT Code CPT Code 76924 (1) Depression Depression Type: major depressive disorder Major depression recurrence: recurrent Active/Remission status: currently active Major depression episode severity: severe Psychotic features: with psychotic features Qualified Code(s): F33.3 - Major depressive disorder, recurrent, severe with psychotic symptoms
[2019-02-24] MEDS: WARFARIN SOD 10 MG TAB PO SCH (15:35)
[2019-02-24] MEDS: SIMVASTATIN 40 MG TAB PO SCH (21:33)
[2019-02-24] MEDS: QUETIAPINE FUMARATE 100 MG TABLET PO SCH (21:33)
[2019-02-25 08:00] LABS: INR 2.1 (0.9-1.1); Prothrombin Time 20.3 Seconds (9.0-12.0)
[2019-02-25] MEDS: SERTRALINE HCL 50 MG TABLET PO SCH (08:32)
--- NOTE | 2019-02-25 09:35 | Psychiatric Progress Note ---
Date of Service February 25, 2019 Impression / Recommendations Impression 58-year-old single male with a history of severe recurrent depression with psychosis, anxiety NOS, PE/DVT on Coumadin, and noncompliance with mental health treatment who is admitted voluntarily after a suicide attempt by overdose on an unknown [id number] sleeping medication (likely diphenhydramine or melatonin, as acetaminophen level was negative). He has a history of previous suicide attempt by overdose, and severe psychotic depression with multiple past hospitalizations, 2 courses of ECT, and noncompliance with outpatient treatment, which led to an involuntary outpatient commitment during his last psychiatric hospitalization here in 2015. He presented with supratherapeutic INR, and Coumadin has been adjusted. He remains depressed, refusing groups at times, and isolating in his room, and would not agreed to referrals for outpatient treatment, with circular reasoning about why he does not need it (he feels better, he will need it, but nothing helps him to feel better), so a 304 commitment hearing was scheduled for next week. If he improved sufficiently, we can transition to an involuntary outpatient commitment and discharge him after the hearing. He remains at risk of , disability, or serious injury as a result of his psychiatric conditions, and inpatient treatment is least restrictive level of care. We will continue to encourage him to engage fully in treatment, except referrals for case management, therapy, and psychiatric care, and to have a family meeting with his brother and/or friends. In the past, he complied with outpatient treatment while on an involuntary outpatient commitment, but stopped medications and stopped attending appointments as soon as it lapsed, so we are again pursuing this as a way to keep him stable and in treatment and decrease his risk of suicide, which is high without appropriate treatment. (1) Intentional overdose of drug in tablet form: 02/17 - Patient reports intentional overdose on an unknown [id number] sleep medication, is likely diphenhydramine or melatonin based on lack of an elevated acetaminophen level on his toxicology screen. -It would be helpful to identify a friend or family to go to his apartment and retrieve the medication, as well as any other medications in order to limit his access to large amounts of medications, given his history of at least 2 serious overdoses. -Ideally the patient's access to his Coumadin would be restricted, again due to the risk in overdose, but he lives alone and our ability to secure that medication after discharge may be limited. -Encourage group attendance and participation, work on healthy coping skills and a discharge safety plan. 02/18 - Suicidality and hopelessness is ongoing - "like the same as it was" 02/21 - SI and hopelessness ongoing. 02/24 - hopelessness continues, but slight improvement, and willing to work toward a plan for discharge on an involuntary outpatient commitment next week. He indicates that he is looking forward to starting a [employer] soon. (2) Depression: 02/17 -patient presents with severe depression and psychotic features. Cannot rule out a delusional disorder with respect to his chronically expressed belief that his life is doomed because he received the "bad feminine genes," while his brothers received the "good genes," who have had good health and lives. -Previous good response to quetiapine and sertraline, and the patient agrees to resume these medications to target mood, anxiety, sleep, and ruminations/delusions. -Start sertraline 50 mg daily and quetiapine 50 mg at bedtime with a repeat dose x1 as needed for sleep. We will titrate to previously effective doses of 200 mg every morning and 200 mg at bedtime, respectively. -Fasting lipid profile and glucose ordered for tomorrow morning for monitoring on an atypical antipsychotic. -Recommend family meeting with friend Luis Felipe and/or brothers. -Patient will need to be referred for outpatient services, including psychiatric care, therapy, and case management. Coordinate with the base service unit regarding his past treatment, specifically to clarify if he dropped out of treatment after his IOC , as this may argue toward the need for another IOC. -Explore ways to increase his supports in the community. 02/18 - Reviewed recommendation to continue titration of sertraline and quetiapine - patient only willing to increase one medication at this time, and chose quetiapine. - Will increase quetiapine to 100mg this evening; continue sertraline at 50mg for now with ongoing titration of both as tolerated - Fasting labs reviewed - glucose elevated at 116; lipid panel WNL - Family meeting with brother scheduled for tomorrow - Continue to explore aftercare/discharge planning 02/19 --slept better following increase in Seroquel, he is refusing additional titration today. 02/20 --titrate Zoloft to 100 mg, patient agreed. 02/21 - Patient refused sertraline this AM due to severe depression and not wanting to have to take meds. Continue to educate and offer medication, continue 302 and meds over objection if continues to refuse treatment. Encourage him to be out of his room and to attend groups. -Continue sertraline 100 mg at bedtime; he has refused further titration, but previously did well on 200 mg at bedtime. Sleep is improving. -Patient refused a family meeting, and we will continue to discuss and explore this with him, as he would clearly benefit from increased outpatient supports and socialization. 02/22 - Pt took sertraline 100mg this AM, but continues to refuse recommendation for continued titration of medications to previously stabilizing doses - and unable to provide rational reasoning for his refusal - Will order 150mg of quetiapine for this evening, and 150mg of sertraline for tomorrow morning - patient was informed of this change being made. If refusal, patient can be offered his previous doses of 100mg of each of the above medications - Will consider possible need to pursue involuntary inpatient commitment, as patient's behavior is not conducive with his current voluntary status and he is making not improvements - Continue to encourage a family meeting prior to discharge 02/23 -Medications increased as above. File for 304 involuntary commitment. Discussed this with patient, including that we may need to refer him for long-t erm inpatient treatment if he remains unwilling to fully engage in treatment and work on discharge planning. 02/24 -Continue current medications and continue to discuss increase to 200 mg sertraline, which today the patient declined. -Recommend involving his supports and a family meeting prior to discharge. Refer for outpatient treatment. 304 hearing 03/02/2019. 02/25 - Continue current medication regimen; he continues to decline previously stabilizing doses of quetiapine and sertraline (200mg each) - Continue to recommend involvement of family and willingness for additional outpatient support (3) Anxiety: 02/17 -patient endorses obsessional ruminations, but no compulsions, as well as some COSME symptoms. Has been diagnosed with anxiety NOS in the past. Previously responded well to sertraline, resume as above. -Hydroxyzine as needed for sleep and anxiety. -Work on healthy ways to cope with anxiety, and refer for outpatient therapy. (4) Anticoagulant long-term use: 02/17 -INR is typically stable in the 2-3 range, but has trended up over the past month, was 3.1 on 01/17/2019, 4.0 on 02/05/2019, and 4.5 in the ER yesterday. Rechecked this morning after discussing with Dr. Loyola, and it remains supratherapeutic at 4.5. Per her recommendations, will hold Coumadin and check daily PT and INR, and if it rises above 4.5, will treat with 5 mg of vitamin K p.o. She can be contacted for further recommendations if needed. 02/18 - Appreciate recommendations from Anticoagulation Clinic - Will continue daily PT and INR; improved today to 29.5 and 3.1 respectively - Recommendations are to resume home schedule starting this evening (5mg daily each day exception Thursday, when he receives 10mg - 65mg weekly total) - Additional recommendations available in Consultation note 02/21 -INR was 2.6 and 2.9 the last 2 days, and today is 3.3. Continue with daily INRs and adjust Coumadin as needed. 02/22 - Psychiatrist reviewed with Dr. Loyola as INR 4.1 today. She recommended holding Coumadin today, resume tomorrow at lower dose of 5mg daily Antoine and W, and 10mg on , , , , . Continue daily INRs. 02/23 -Resume Coumadin at lower dose as above, continue daily INR 02/24 -INR 3.3 yesterday, and 2.1 today. Continue Coumadin with daily labs. 02/25 - INR remains 2.1 today; continue daily labs Inventory Assets Strengths: Compliance with medical appts, stable housing, supportive family Needs: Noncompliance with OP treatment, lack of supports Risk Factors Assessment Male: Yes : Yes Do You Have Access To A Gun?: No Health Problems: Yes Mental Health Diagnoses: Yes Substance Use Disorders: No Previous Attempt: Yes Family History of Suicide: No Previous Psychiatric Hospitalization: Yes Hopelessness: Yes Smoker: No Protective Factors Assessment Alevism Beliefs: No : No Responsible for Young Children: No Employed: No Stable Relationships: No Supportive Family: Yes Good Rapport with Provider: No Interval History Identifying Information YINKA ROMERO is a 58-year-old M who currently lives in an [place] alone, has a history of recurrent, severe depression with psychosis, anxiety NOS, and history of DVT/PE on chronic anticoagulation, and was admitted on 02/17/19 00:37 on a 201 voluntary commitment for depression and suicidality, after an overdose on approximately 25 tabs of an unknown pxjk-hxv-srofmpt sleep medication. Chief Complaint "I'm just mad at myself, I was supposed to be leaving. Now I'm going to miss [employer] and I'll have to move out of my house." Review of Systems Notes Constitutional: denied Cardiovascular: denied Respiratory: denied Gastrointestinal: denied Neurological: denied Psychiatric: denies symptoms other than stated above Total of at least 10 systems reviewed, pertinent positives as above and in HPI. Sleep Information Total Hours of Sleep: 4.25 Sleep Comments: asleep for a half hour on the 09/27 shift then was awakened by his roommates activities. he appeared to sleep form [id number]. he declined any hs vistaril for sleep aid. he wanted to take a shower at 0530 as he knew he smelled bad. Meal Information Percent Meal Consumed - Breakfast: 100 Percent Meal Consumed - Lunch: 100 Percent Meal Consumed - Dinner: 100 Nutrition Comment: per meal record Subjective Subjective Patient was seen & assessed and interval progress reviewed with treatment team. Staff reports the patient has been future oriented, discussing his upcoming [employer] leagues. He has been attending groups with some increased frequency, but episodically isolates in bed. His 304 hearing is scheduled for 03/02. Patient was seen today to assess progress since admission. He reports being frustrated with himself today, stating "I was supposed to go home, on day 5 I just laid down, I don't know why I laid down." He circumstantially explains his belief that he had been given "Paxil" when he first came on the unit, and that after 5 days he was "feeling good, I had not anxiety." He believes he "laid down", with no particular motive - and this is why his stay has been extended. Pt was reminded that while he was "laying down", he had been refusing medications, refusing groups, and refusing appropriate aftercare. He states, "that's the other thing, now I have so many different people to follow-up with, before I just had one person and I was fine. Now there's more to keep track of." Pt was reminded that if he is able to demonstrate improvement in mood and functioning on the unit, there is a possibility that his 304 hearing could be one for an outpatient commitment, with possibility of discharge next week. Pt was encouraged to view today as a "fresh start", rather than continuing to focus on past decisions and behavior. He continues to eagle back to the fact that he "was doing so well, but I laid down. I'm so stupid." Pt continues to comment about his medications containing "steroids" that are affecting his skin. Pt was reminded that his medication regimen does not include steroids, and education was provided on the reasoning for his current medication regimen. He continues to imply that his needs "Paxil for my anxiety." When asked if he felt anxious currently, he denies - continues to verbalize he is simply frustrated with himself for "laying down" when he believes he would have otherwise been discharged. Pt denies acute needs or concerns at this time. Physical Exam Psychiatric Orientation: alert, oriented x 3 and cooperative (superficially; conversation was not overly productive due to ruminations) Apperance: appropriately dressed, appropriately groomed and appeared stated age Eye Contact: + poor eye contact (eyes squinted and looking at floor for most of visit) Motor Behavior: steady gait and station and no abnormal motor movements Speech: normal rate/rhythm/volume of speech (irritable tone at times) Affect: + depressed affect, + irritable affect (reports being frustrated with himself) and mood congruent with affect Mood: + irritable mood (frustrated with himself "I'm so mad at myself, I'm so stupid"); no anxious mood ("No, I'm not anxious anymore, I could have gone home if I didn't lay down") Thought Process: + circumstantial thought process (ongoing ruminations) Thought Content: + delusions, + hopelessness, + worthlessness, + guilt and + self deprecation Suicidal Thoughts: denies suicidal thoughts Homicidal Thoughts: denies homicidal thoughts Hallucinations: no auditory hallucinations and no visual hallucinations Cognition: language grossly intact; + recent memory not intact (recalling inacurate medication trials) Insight: + limited insight Judgement: + limited judgement Vital Signs (Past 24 Hours) Last Vital Signs Temp 36.7 C 02/25/19 06:00 Pulse 93 H 02/25/19 06:50 Resp 19 02/25/19 06:00 BP 128/86 02/25/19 06:50 Pulse Ox 96 02/17/19 01:23 Results & Data Laboratory Results Laboratory Results - last 24 hr 02/25/19 07:36 PT 20.3 H INR 2.1 H Current Inpatient Medications Current Inpatient Medications: Current Inpatient Medications Acetaminophen (Tylenol) 650 mg PO Q4H PRN PRN Reason: Headache or Minor Fever Stop: 03/19/19 01:15 Al Hydrox/Mg Hydrox/Simethicone (Maalox) 30 ml PO Q4H PRN PRN Reason: GI Upset Stop: 03/19/19 01:15 Last Admin: 02/17/19 08:47 Dose: 30 ml Documented by: Bismuth Subsalicylate (Kaopectate) 15 ml PO PRN PRN PRN Reason: Loose Stool Stop: 03/19/19 01:15 Magnesium Hydroxide (Milk Of Magnesia) 30 ml PO DAILY PRN PRN Reason: Heartburn Stop: 03/19/19 01:15 Quetiapine Fumarate (Seroquel) 150 mg PO [facility] Stop: 03/24/19 21:59 Last Admin: 02/24/19 21:33 Dose: 150 mg Documented by: Sertraline HCl (Zoloft) 150 mg PO [facility] Stop: 03/25/19 08:59 Last Admin: 02/25/19 08:32 Dose: Not Given Documented by: Simvastatin (Zocor) 40 mg PO [facility] Stop: 03/19/19 21:59 Last Admin: 02/24/19 21:33 Dose: 40 mg Documented by: Sodium Chloride (Orange Nasal) 1 - 2 sprays NA PRN PRN PRN Reason: Nasal Dryness/Congestion Stop: 03/19/19 01:15 Warfarin Sodium (Coumadin) 10 mg PO [email or web address] [facility] Stop: 03/24/19 15:59 Last Admin: 02/24/19 15:35 Dose: 10 mg Documented by: Warfarin Sodium (Coumadin) 5 mg PO [email or web address] [facility] Stop: 03/25/19 15:59 Last Admin: 02/23/19 16:05 Dose: 5 mg Documented by: Mental Health & Subst Abuse Tx Psychiatrist Name of Psychiatrist: [facility] - Dr. Harrington Psychiatrist's Date of Appointment with Psychiatrist: 03/22/19 Time of Appointment with Psychiatrist: 2:30 pm Psychiatric Appointment Comment: [phone], [facility], [place], [place] Therapist Name of Therapist: AFP? Dena? Manager Regional Sales Name of Manager Regional Sales: Sarwat Post Discharge Appointments Primary Care Physician Name Of Family Doctor: RUBIO - Dr. Todd [facility] Date of Appointment with PCP: 03/09/19 Time of Appointment with PCP: 12pm Provider Appointment Comment: [address] [place] [address] Michelle RubalcavaefALKA aguilar [phone] Contact Information Discharge Discharge [address]: [address] [place] [address] [place] [address] CPT Code CPT Code 36991 (1) Depression Active/Remission status: currently active Depression Type: major depressive disorder Major depression episode severity: severe Major depression recurrence: recurrent Psychotic features: with psychotic features Qualified Code(s): F33.3 - Major depressive disorder, recurrent, severe with psychotic symptoms
[2019-02-25] MEDS: WARFARIN SOD 10 MG TAB PO SCH (16:02)
[2019-02-25] MEDS: QUETIAPINE FUMARATE 100 MG TABLET PO SCH (21:38)
[2019-02-25] MEDS: SIMVASTATIN 40 MG TAB PO SCH (21:39)
[2019-02-26 08:22] LABS: INR 2.7 (0.9-1.1); Prothrombin Time 26.2 Seconds (9.0-12.0)
[2019-02-26] MEDS: SERTRALINE HCL 50 MG TABLET PO SCH (08:42)
--- NOTE | 2019-02-26 09:07 | Psychiatric Progress Note ---
Date of Service February 26, 2019 Impression / Recommendations Impression 58-year-old single male with a history of severe recurrent depression with psychosis, anxiety NOS, PE/DVT on Coumadin, and noncompliance with mental health treatment who is admitted voluntarily after a suicide attempt by overdose on an unknown [id number] sleeping medication (likely diphenhydramine or melatonin, as acetaminophen level was negative). He has a history of previous suicide attempt by overdose, and severe psychotic depression with multiple past hospitalizations, 2 courses of ECT, and noncompliance with outpatient treatment, which led to an involuntary outpatient commitment during his last psychiatric hospitalization here in 2015. He presented with supratherapeutic INR, and Coumadin has been adjusted. He remains severely depressed, ruminative, and isolating in his room, and initially would not agreed to referrals for outpatient treatment or appropriate medication adjustments, with circular reasoning about why he does not need it (he feels better, he will need it, but nothing helps him to feel better), so a 304 commitment hearing was scheduled for 03/02/2019. He has intermittently refused medication, and mood and suicidality are no better than on admission. He remains at risk of , disability, or serious injury as a result of his psychiatric conditions, and inpatient treatment is least restrictive level of care. We will continue to encourage him to engage fully in treatment, except referrals for case management, therapy, and psychiatric care, and to have a family meeting with his brother and/or friends. In the past, he complied with outpatient treatment while on an involuntary outpatient commitment, but stopped medications and stopped attending appointments as soon as it lapsed, so we are again pursuing this as a way to keep him stable and in treatment and decrease his risk of suicide, which is high without appropriate treatment. (1) Intentional overdose of drug in tablet form: 02/17 - Patient reports intentional overdose on an unknown aeew-sxc-xcjkamn sleep medication, is likely diphenhydramine or melatonin based on lack of an elevated acetaminophen level on his toxicology screen. -It would be helpful to identify a friend or family to go to his apartment and retrieve the medication, as well as any other medications in order to limit his access to large amounts of medications, given his history of at least 2 serious overdoses. -Ideally the patient's access to his Coumadin would be restricted, again due to the risk in overdose, but he lives alone and our ability to secure that medication after discharge may be limited. -Encourage group attendance and participation, work on healthy coping skills and a discharge safety plan. 02/18 - Suicidality and hopelessness is ongoing - "like the same as it was" 02/21 - SI and hopelessness ongoing. 02/24 - hopelessness continues, but slight improvement, and willing to work toward a plan for discharge on an involuntary outpatient commitment next week. He indicates that he is looking forward to starting a [employer] soon. 02/26 - hopelessness and suicidality have again worsened, and he is unable to contract for safety outside of the hospital. (2) Depression: 02/17 -patient presents with severe depression and psychotic features. Cannot rule out a delusional disorder with respect to his chronically expressed belief that his life is doomed because he received the "bad feminine genes," while his brothers received the "good genes," who have had good health and lives. -Previous good response to quetiapine and sertraline, and the patient agrees to resume these medications to target mood, anxiety, sleep, and ruminations/delusions. -Start sertraline 50 mg daily and quetiapine 50 mg at bedtime with a repeat dose x1 as needed for sleep. We will titrate to previously effective doses of 200 mg every morning and 200 mg at bedtime, respectively. -Fasting lipid profile and glucose ordered for tomorrow morning for monitoring on an atypical antipsychotic. -Recommend family meeting with friend Luis Felipe and/or brothers. -Patient will need to be referred for outpatient services, including psychiatric care, therapy, and case management. Coordinate with the base service unit regarding his past treatment, specifically to clarify if he dropped out of treatment after his IOC , as this may argue toward the need for another IOC. -Explore ways to increase his supports in the community. 02/18 - Reviewed recommendation to continue titration of sertraline and quetiapine - patient only willing to increase one medication at this time, and chose quetiapine. - Will increase quetiapine to 100mg this evening; continue sertraline at 50mg for now with ongoing titration of both as tolerated - Fasting labs reviewed - glucose elevated at 116; lipid panel WNL - Family meeting with brother scheduled for tomorrow - Continue to explore aftercare/discharge planning 02/19 --slept better following increase in Seroquel, he is refusing additional titration today. 02/20 --titrate Zoloft to 100 mg, patient agreed. 02/21 - Patient refused sertraline this AM due to severe depression and not wanting to have to take meds. Continue to educate and offer medication, continue 302 and meds over objection if continues to refuse treatment. Encourage him to be out of his room and to attend groups. -Continue sertraline 100 mg at bedtime; he has refused further titration, but previously did well on 200 mg at bedtime. Sleep is improving. -Patient refused a family meeting, and we will continue to discuss and explore this with him, as he would clearly benefit from increased outpatient supports and socialization. 02/22 - Pt took sertraline 100mg this AM, but continues to refuse recommendation for continued titration of medications to previously stabilizing doses - and unable to provide rational reasoning for his refusal - Will order 150mg of quetiapine for this evening, and 150mg of sertraline for tomorrow morning - patient was informed of this change being made. If refusal, patient can be offered his previous doses of 100mg of each of the above medications - Will consider possible need to pursue involuntary inpatient commitment, as patient's behavior is not conducive with his current voluntary status and he is making not improvements - Continue to encourage a family meeting prior to discharge 02/23 -Medications increased as above. File for 304 involuntary commitment. Discussed this with patient, including that we may need to refer him for long- term inpatient treatment if he remains unwilling to fully engage in treatment and work on discharge planning. 02/24 -Continue current medications and continue to discuss increase to 200 mg sertraline, which today the patient declined. -Recommend involving his supports and a family meeting prior to discharge. Refer for outpatient treatment. 304 hearing 03/02/2019. 02/25 - Continue current medication regimen; he continues to decline previously stabilizing doses of quetiapine and sertraline (200mg each) - Continue to recommend involvement of family and willingness for additional outpatient support 02/26 -Patient refused sertraline yesterday, and initially refused it this morning, but then agreed to take a partial dose (100 mg). He initially stated he thought it was causing acne, but now says he was mistaken and it must be another medi cation. Encouraged him to take the full prescribed dose, and to allow us to titrate it to the previously effective dose of 200 mg daily. He is so focused on his negative ruminations that he is unable to fully engage in the interview. Continue to encourage him to allow titration of his medications to fully address his symptoms. -Patient reporting acne on his back and chest, which on exam is minimal. He reports previous good response to topical antibiotic, contacted pharmacy regarding what is available on formulary and am awaiting a call back. (3) Anxiety: 02/17 -patient endorses obsessional ruminations, but no compulsions, as well as some COSME symptoms. Has been diagnosed with anxiety NOS in the past. Previously responded well to sertraline, resume as above. -Hydroxyzine as needed for sleep and anxiety. -Work on healthy ways to cope with anxiety, and refer for outpatient therapy. (4) Anticoagulant long-term use: 02/17 -INR is typically stable in the 2-3 range, but has trended up over the past month, was 3.1 on 01/17/2019, 4.0 on 02/05/2019, and 4.5 in the ER yesterday. Rechecked this morning after discussing with Dr. Loyola, and it remains supratherapeutic at 4.5. Per her recommendations, will hold Coumadin and check daily PT and INR, and if it rises above 4.5, will treat with 5 mg of vitamin K p.o. She can be contacted for further recommendations if needed. 02/18 - Appreciate recommendations from Anticoagulation Clinic - Will continue daily PT and INR; improved today to 29.5 and 3.1 respectively - Recommendations are to resume home schedule starting this evening (5mg daily each day exception Thursday, when he receives 10mg - 65mg weekly total) - Additional recommendations available in Consultation note 02/21 -INR was 2.6 and 2.9 the last 2 days, and today is 3.3. Continue with daily INRs and adjust Coumadin as needed. 02/22 - Psychiatrist reviewed with Dr. Loyola as INR 4.1 today. She recommended holding Coumadin today, resume tomorrow at lower dose of 5mg daily Antoine and W, and 10mg on M, T, , F, Sa. Continue daily INRs. 02/23 -Resume Coumadin at lower dose as above, continue daily INR 02/24 -INR 3.3 yesterday, and 2.1 today. Continue Coumadin with daily labs. 02/25 - INR remains 2.1 today; continue daily labs 02/26 -INR 2.7. Inventory Assets Strengths: Compliance with medical appts, stable housing, supportive family Needs: Noncompliance with OP treatment, lack of supports Risk Factors Assessment Male: Yes : Yes Do You Have Access To A Gun?: No Health Problems: Yes Mental Health Diagnoses: Yes Substance Use Disorders: No Previous Attempt: Yes Family History of Suicide: No Previous Psychiatric Hospitalization: Yes Hopelessness: Yes Smoker: No Protective Factors Assessment Islam Beliefs: No : No Responsible for Young Children: No Employed: No Stable Relationships: No Supportive Family: Yes Good Rapport with Provider: No Interval History Identifying Information YINKA ROMERO is a 58-year-old M who currently lives in an [place] alone, has a history of recurrent, severe depression with psychosis, anxiety NOS, and history of DVT/PE on chronic anticoagulation, and was admitted on 02/17/19 00:37 on a 201 voluntary commitment for depression and suicidality, after an overdose on approximately 25 tabs of an unknown ncex-mel-qtbuiub sleep medication. Chief Complaint "Destroyed me, now I'm done". Review of Systems Sleep Information Total Hours of Sleep: 6.25 Sleep Comments: awake at 0600-sat on his bed Meal Information Percent Meal Consumed - Breakfast: 100 Percent Meal Consumed - Lunch: 100 Percent Meal Consumed - Dinner: 100 Nutrition Comment: per meal record Subjective Subjective Patient was seen & assessed and interval progress reviewed with nursing and social work. Staff report he was depressed and ruminating yesterday, stating he had messed up and reporting hopelessness. He is reporting acne, although none is visible, and cannot reality test or be reassured. He refused his sertraline again yesterday, and today would only take a partial dose. He is attending some groups, but not interacting with others. On my assessment, he reports mood is "lousy," and perseverates on his failures and hopelessness. He reports a wish to be , and ruminates on his mistakes and how they have destroyed his life. He is specifically focused on a mistake he made last week when he went back to bed to lie down after he had been feeling good for a few hour, as he thinks this doomed him to becoming increasingly depressed and that he will never get better or be able to leave the hospital. He is unable to talk about anything else, and repeatedly returns to this topic. He says he has "destroyed my chances to get better." He says he refused his Zoloft because he was confused about his medication, and thought that the Zoloft was causing acne, but now thinks it is a medication he is taking at night. He says his skin is covered with acne, but on exam, only a few excoriated areas on his back are visible. He reports a history of acne for which she took some kind of topical antibiotic in the past, and fou nd it helpful. Physical Exam Psychiatric No lesions visible on face or upper extremities, back with 2-3 small round areas of excoriation which could represent acne that has been picked. Orientation: alert and cooperative But difficult to engage, is repeatedly returns to hopelessness and self blame for his condition. Apperance: appropriately dressed, appropriately groomed and appeared stated age Seated in no acute distress, hanging his head. Eye Contact: + poor eye contact Motor Behavior: steady gait and station and no abnormal motor movements Distressed tone. Affect: + depressed affect, + constricted affect and mood congruent with affect "Lousy." Thought Process: + perseveration Thought Content: + preoccupation, + hopelessness, + worthlessness, + guilt and + self deprecation Suicidal Thoughts: + reports suicidal thoughts Is able to contract for safety in the hospital, but reports ongoing wishes to be and cannot contract for safety at home. Homicidal Thoughts: denies homicidal thoughts Hallucinations: no auditory hallucinations and no visual hallucinations Cognition: language grossly intact; + recent memory not intact (Does not recall details about his medications we have discussed multiple times) and + attention not intact Insight: + impaired insight Judgement: + impaired judgement Vital Signs (Past 24 Hours) Last Vital Signs Temp 36.7 C 02/26/19 06:44 Pulse 84 02/26/19 06:44 Resp 20 02/26/19 06:44 BP 166/98 H 02/26/19 06:44 Pulse Ox 96 02/17/19 01:23 Results & Data Laboratory Results Laboratory Results - last 24 hr 02/26/19 08:01 PT 26.2 H INR 2.7 H Current Inpatient Medications Current Inpatient Medications: Current Inpatient Medications Acetaminophen (Tylenol) 650 mg PO Q4H PRN PRN Reason: Headache or Minor Fever Stop: 03/19/19 01:15 Al Hydrox/Mg Hydrox/Simethicone (Maalox) 30 ml PO Q4H PRN PRN Reason: GI Upset Stop: 03/19/19 01:15 Last Admin: 02/17/19 08:47 Dose: 30 ml Documented by: Bismuth Subsalicylate (Kaopectate) 15 ml PO PRN PRN PRN Reason: Loose Stool Stop: 03/19/19 01:15 Magnesium Hydroxide (Milk Of Magnesia) 30 ml PO DAILY PRN PRN Reason: Heartburn Stop: 03/19/19 01:15 Quetiapine Fumarate (Seroquel) 150 mg PO [facility] Stop: 03/24/19 21:59 Last Admin: 02/25/19 21:38 Dose: 150 mg Documented by: Sertraline HCl (Zoloft) 150 mg PO [facility] Stop: 03/25/19 08:59 Last Admin: 02/26/19 08:42 Dose: 100 mg Documented by: Simvastatin (Zocor) 40 mg PO [facility] Stop: 03/19/19 21:59 Last Admin: 02/25/19 21:39 Dose: 40 mg Documented by: Sodium Chloride (Albia Nasal) 1 - 2 sprays NA PRN PRN PRN Reason: Nasal Dryness/Congestion Stop: 03/19/19 01:15 Warfarin Sodium (Coumadin) 10 mg PO [id number] [facility] Stop: 03/24/19 15:59 Last Admin: 02/25/19 16:02 Dose: 10 mg Documented by: Warfarin Sodium (Coumadin) 5 mg PO [id number] [facility] Stop: 03/25/19 15:59 Last Admin: 02/23/19 16:05 Dose: 5 mg Documented by: Mental Health & Subst Abuse Tx Psychiatrist Name of Psychiatrist: [place] Family Psychiatry - Dr. Harrington Psychiatrist's Date of Appointment with Psychiatrist: 03/22/19 Time of Appointment with Psychiatrist: 2:30 pm Psychiatric Appointment Comment: Kayla Gauthier, [facility], [place], [place] Therapist Name of Therapist: DAWIT Fernandes? [employer] Programmer Name of [employer] Programmer: Declines Post Discharge Appointments Primary Care Physician Name Of Family Doctor: [facility] Date of Appointment with PCP: 03/09/19 Time of Appointment with PCP: 12pm Provider Appointment Comment: [phone] [place] [id number] Contact Information Discharge Discharge Address: [address] [place], [place] [address]ALKA [facility] CPT Code CPT Code 48764 (1) Depression Active/Remission status: currently active Depression Type: major depressive disorder Major depression episode severity: severe Major depression recurrence: recurrent Psychotic features: with psychotic features Qualified Code(s): F33.3 - Major depressive disorder, recurrent, severe with psychotic symptoms
[2019-02-26] MEDS: WARFARIN SOD 10 MG TAB PO SCH (15:53)
[2019-02-26] MEDS: SIMVASTATIN 40 MG TAB PO SCH (21:23)
[2019-02-26] MEDS: QUETIAPINE FUMARATE 100 MG TABLET PO SCH ×2 (21:23→21:28)
[2019-02-27 08:02] LABS: INR 3.4 (0.9-1.1); Prothrombin Time 31.6 Seconds (9.0-12.0)
--- NOTE | 2019-02-27 08:17 | Psychiatric Progress Note ---
Date of Service February 27, 2019 Impression / Recommendations Impression 58-year-old single male with a history of severe recurrent depression with psychosis, anxiety NOS, PE/DVT on Coumadin, and noncompliance with mental health treatment who is admitted voluntarily after a suicide attempt by overdose on an unknown [id number] sleeping medication (likely diphenhydramine or melatonin, as acetaminophen level was negative). He has a history of previous suicide attempt by overdose, and severe psychotic depression with multiple past hospitalizations, 2 courses of ECT, and noncompliance with outpatient treatment, which led to an involuntary outpatient commitment during his last psychiatric hospitalization here in 2015. He presented with supratherapeutic INR, and Coumadin has been adjusted. He remains severely depressed, ruminative, and isolating in his room, and initially would not agreed to referrals for outpatient treatment or appropriate medication adjustments, with circular reasoning about why he does not need it (he feels better, he will need it, but nothing helps him to feel better), so a 304 commitment hearing was scheduled for 03/02/2019. He is intermittently refusing medication, initially sertraline, and now quetiapine, due to delusional beliefs that he is breaking out in acne. Mood and suicidality are no better than on admission. He remains at risk of , disability, or serious injury as a result of his psychiatric conditions, and inpatient treatment is least restrictive level of care. We will continue to encourage him to engage fully in treatment, except referrals for case management, therapy, and psychiatric care, and to have a family meeting with his brother and/or friends. In the past, he complied with outpatient treatment while on an involuntary outpatient commitment, but stopped medications and stopped attending appointments as soon as it lapsed, so we are again pursuing this as a way to keep him stable and in treatment and decrease his risk of suicide, which is high without appropriate treatment. (1) Intentional overdose of drug in tablet form: 02/17 - Patient reports intentional overdose on an unknown harh-lkj-[id number] sleep medication, is likely diphenhydramine or melatonin based on lack of an elevated acetaminophen level on his toxicology screen. -It would be helpful to identify a friend or family to go to his apartment and retrieve the medication, as well as any other medications in order to limit his access to large amounts of medications, given his history of at least 2 serious overdoses. -Ideally the patient's access to his Coumadin would be restricted, again due to the risk in overdose, but he lives alone and our ability to secure that medication after discharge may be limited. -Encourage group attendance and participation, work on healthy coping skills and a discharge safety plan. 02/18 - Suicidality and hopelessness is ongoing - "like the same as it was" 02/21 - SI and hopelessness ongoing. 02/24 - hopelessness continues, but slight improvement, and willing to work toward a plan for discharge on an involuntary outpatient commitment next week. He indicates that he is looking forward to starting a [employer] soon. 02/26 - hopelessness and suicidality have again worsened, and he is unable to contract for safety outside of the hospital. (2) Depression: 02/17 -patient presents with severe depression and psychotic features. Cannot rule out a delusional disorder with respect to his chronically expressed belief that his life is doomed because he received the "bad feminine genes," while his brothers received the "good genes," who have had good health and lives. -Previous good response to quetiapine and sertraline, and the patient agrees to resume these medications to target mood, anxiety, sleep, and ruminat ions/delusions. -Start sertraline 50 mg daily and quetiapine 50 mg at bedtime with a repeat dose x1 as needed for sleep. We will titrate to previously effective doses of 200 mg every morning and 200 mg at bedtime, respectively. -Fasting lipid profile and glucose ordered for tomorrow morning for monitoring on an atypical antipsychotic. -Recommend family meeting with friend Luis Felipe and/or brothers. -Patient will need to be referred for outpatient services, including psychiatric care, therapy, and case management. Coordinate with the base service unit regarding his past treatment, specifically to clarify if he dropped out of treatment after his IOC , as this may argue toward the need for another IOC. -Explore ways to increase his supports in the community. 02/18 - Reviewed recommendation to continue titration of sertraline and quetiapine - patient only willing to increase one medication at this time, and chose quetiapine. - Will increase quetiapine to 100mg this evening; continue sertraline at 50mg for now with ongoing titration of both as tolerated - Fasting labs reviewed - glucose elevated at 116; lipid panel WNL - Family meeting with brother scheduled for tomorrow - Continue to explore aftercare/discharge planning 02/19 --slept better following increase in Seroquel, he is refusing additional titration today. 02/20 --titrate Zoloft to 100 mg, patient agreed. 02/21 - Patient refused sertraline this AM due to severe depression and not wanting to have to take meds. Continue to educate and offer medication, continue 302 and meds over objection if continues to refuse treatment. Encourage him to be out of his room and to attend groups. -Continue sertraline 100 mg at bedtime; he has refused further titration, but previously did well on 200 mg at bedtime. Sleep is improving. -Patient refused a family meeting, and we will continue to discuss and explore this with him, as he would clearly benefit from increased outpatient supports and socialization. 02/22 - Pt took sertraline 100mg this AM, but continues to refuse recommendation for continued titration of medications to previously stabilizing doses - and unable to provide rational reasoning for his refusal - Will order 150mg of quetiapine for this evening, and 150mg of sertraline for tomorrow morning - patient was informed of this change being made. If refusal, patient can be offered his previous doses of 100mg of each of the above medications - Will consider possible need to pursue involuntary inpatient commitment, as patient's behavior is not conducive with his current voluntary status and he is making not improvements - Continue to encourage a family meeting prior to discharge 02/23 -Medications increased as above. File for 304 involuntary commitment. Discussed this with patient, including that we may need to refer him for long- term inpatient treatment if he remains unwilling to fully engage in treatment and work on discharge planning. 02/24 -Continue current medications and continue to discuss increase to 200 mg sertraline, which today the patient declined. -Recommend involving his supports and a family meeting prior to discharge. Refer for outpatient treatment. 304 hearing 03/02/2019. 02/25 - Continue current medication regimen; he continues to decline previously stabilizing doses of quetiapine and sertraline (200mg each) - Continue to recommend involvement of family and willingness for additional outpatient support 02/26 -Patient refused sertraline yesterday, and initially refused it this morning, but then agreed to take a partial dose (100 mg). He initially stated he thought it was causing acne, but now says he was mistaken and it must be another medication. Encouraged him to take the full prescribed dose, and to allow us to titrate it to the previously effective dose of 200 mg daily. He is so focused on his negative ruminations that he is unable to fully engage in the interview. Continue to encourage him to allow titration of his medications to fully address his symptoms. -Patient reporting acne on his back and chest, which on exam is minimal. He reports previous good response to topical antibiotic, contacted pharmacy regarding what is available on formulary and am awaiting a call back. 02/27 - Patient now refusing quetiapine, believing it is causing acne breakout, although no acne visible. Offered Adapalene or Differen which could be brought in from OP pharmacy, and he declines. - Continue sertraline and increase to 200 mg daily for tomorrow to target depression. As patient refusing to take quetiapine, discussed alternative me dications for augmentation and psychosis, and he agreed to a trial of aripiprazole. Reviewed risks and side effects. Start 5 mg daily. (3) Anxiety: 02/17 -patient endorses obsessional ruminations, but no compulsions, as well as some COSME symptoms. Has been diagnosed with anxiety NOS in the past. Previously responded well to sertraline, resume as above. -Hydroxyzine as needed for sleep and anxiety. -Work on healthy ways to cope with anxiety, and refer for outpatient therapy. (4) Anticoagulant long-term use: 02/17 -INR is typically stable in the 2-3 range, but has trended up over the past month, was 3.1 on 01/17/2019, 4.0 on 02/05/2019, and 4.5 in the ER yesterday. Rechecked this morning after discussing with Dr. Loyola, and it remains supratherapeutic at 4.5. Per her recommendations, will hold Coumadin and check daily PT and INR, and if it rises above 4.5, will treat with 5 mg of vitamin K p.o. She can be contacted for further recommendations if needed. 02/18 - Appreciate recommendations from Anticoagulation Clinic - Will continue daily PT and INR; improved today to 29.5 and 3.1 respectively - Recommendations are to resume home schedule starting this evening (5mg daily each day exception Thursday, when he receives 10mg - 65mg weekly total) - Additional recommendations available in Consultation note 02/21 -INR was 2.6 and 2.9 the last 2 days, and today is 3.3. Continue with daily INRs and adjust Coumadin as needed. 02/22 - Psychiatrist reviewed with Dr. Loyola as INR 4.1 today. She recommended holding Coumadin today, resume tomorrow at lower dose of 5mg daily Antoine and W, and 10mg on , , , , Sa. Continue daily INRs. 02/23 -Resume Coumadin at lower dose as above, continue daily INR 02/24 -INR 3.3 yesterday, and 2.1 today. Continue Coumadin with daily labs. 02/25 - INR remains 2.1 today; continue daily labs 02/26 -INR 2.7. 02/27 -INR 3.4 Inventory Assets Strengths: Compliance with medical appts, stable housing, supportive family Needs: Noncompliance with OP treatment, lack of supports Risk Factors Assessment Male: Yes : Yes Do You Have Access To A Gun?: No Health Problems: Yes Mental Health Diagnoses: Yes Substance Use Disorders: No Previous Attempt: Yes Family History of Suicide: No Previous Psychiatric Hospitalization: Yes Hopelessness: Yes Smoker: No Protective Factors Assessment Jain Beliefs: No : No Responsible for Young Children: No Employed: No Stable Relationships: No Supportive Family: Yes Good Rapport with Provider: No Interval History Identifying Information YINKA ROMERO is a 58-year-old M who currently lives in an [place] alone, has a history of recurrent, severe depression with psychosis, anxiety NOS, and history of DVT/PE on chronic anticoagulation, and was admitted on 02/17/19 00:37 on a 201 voluntary commitment for depression and suicidality, after an overdose on approximately 25 tabs of an unknown axne-bew-eqldvpr sleep medication. Chief Complaint "A little better". Review of Systems Sleep Information Total Hours of Sleep: 4.25 Sleep Comments: noted awake at 0330 and back to sleep at 0530 Meal Information Percent Meal Consumed - Breakfast: 100 Percent Meal Consumed - Lunch: 100 Percent Meal Consumed - Dinner: 75 Nutrition Comment: per meal record Subjective Subjective Patient was seen & assessed and interval progress reviewed with nursing and social work. Staff report he remains severely depressed, hopeless, and ruminative. He slept poorly, was up in the middle of the night. He continues to express delusions that he has acne all over, and is not able to reality test or be reassured by staff's examination and lack of skin lesions, and says he cannot take medications. He has been repeatedly stating he is "done for" and that there is no hope for him. He would only take a partial dose of sertraline yesterday, initially stating he thought it was causing acne, but then decided that it was the quetiapine causing acne, but still refused to take the rest of his SSRI. He refused quetiapine last night, saying he thought it was causing acne. On my assessment, he reports feeling "a little better" today, "a little more hopeful." He does not want to take Seroquel anymore as he thinks it is causing his skin to break out. He as never tried Abilify and is willing for a trial. Discussed the topical acne medications suggested by the pharmacist and that a friend would have to bring these in, as nonformulary, and he declined, stating he didn't need it. He has not taken acne medication in an unclear amount of time, and is not sure what the name of it was. Physical Exam Psychiatric Orientation: alert and cooperative Apperance: appropriately dressed, appropriately groomed and appeared stated age Eye Contact: + fair eye contact Motor Behavior: steady gait and station and no abnormal motor movements Speech: normal rate/rhythm/volume of speech Affect: + depressed affect and mood congruent with affect lightly reactive Mood: + depressed mood but slight improvement Thought Process: + perseveration (on hopelessness of his situation) Thought Content: + cognitive distortions, + delusions, + hopelessness, + worthlessness, + guilt and + self deprecation Suicidal Thoughts: + reports suicidal thoughts Homicidal Thoughts: denies homicidal thoughts Hallucinations: no auditory hallucinations and no visual hallucinations Cognition: language grossly intact; + recent memory not intact Insight: + severely impaired insight Judgement: + severely impaired judgement Vital Signs (Past 24 Hours) Last Vital Signs Temp 37 C 02/27/19 06:41 Pulse 101 H 02/27/19 06:41 Resp 20 02/27/19 06:41 BP 144/94 H 02/27/19 06:41 Pulse Ox 96 02/17/19 01:23 Results & Data Laboratory Results Laboratory Results - last 24 hr 02/26/19 02/27/19 08:01 07:37 PT 26.2 H 31.6 H INR 2.7 H 3.4 H Current Inpatient Medications Current Inpatient Medications: Current Inpatient Medications Acetaminophen (Tylenol) 650 mg PO Q4H PRN PRN Reason: Headache or Minor Fever Stop: 03/19/19 01:15 Al Hydrox/Mg Hydrox/Simethicone (Maalox) 30 ml PO Q4H PRN PRN Reason: GI Upset Stop: 03/19/19 01:15 Last Admin: 02/17/19 08:47 Dose: 30 ml Documented by: Bismuth Subsalicylate (Kaopectate) 15 ml PO PRN PRN PRN Reason: Loose Stool Stop: 03/19/19 01:15 Magnesium Hydroxide (Milk Of Magnesia) 30 ml PO DAILY PRN PRN Reason: Heartburn Stop: 03/19/19 01:15 Quetiapine Fumarate (Seroquel) 150 mg PO [facility] Stop: 03/24/19 21:59 Last Admin: 02/26/19 21:28 Dose: Not Given Documented by: Sertraline HCl (Zoloft) 150 mg PO [facility] Stop: 03/25/19 08:59 Last Admin: 02/26/19 08:42 Dose: 100 mg Documented by: Simvastatin (Zocor) 40 mg PO [facility] Stop: 03/19/19 21:59 Last Admin: 02/26/19 21:23 Dose: 40 mg Documented by: Sodium Chloride ([place] Nasal) 1 - 2 sprays NA PRN PRN PRN Reason: Nasal Dryness/Congestion Stop: 03/19/19 01:15 Warfarin Sodium (Coumadin) 10 mg PO [id number] Stop: 03/24/19 15:59 Last Admin: 02/26/19 15:53 Dose: 10 mg Documented by: Warfarin Sodium (Coumadin) 5 mg PO [id number] Stop: 03/25/19 15:59 Last Admin: 02/23/19 16:05 Dose: 5 mg Documented by: Mental Health & Subst Abuse Tx Psychiatrist Name of Psychiatrist: [facility] - Dr. Harrington Psychiatrist's Date of Appointment with Psychiatrist: 03/22/19 Time of Appointment with Psychiatrist: 2:30 pm Psychiatric Appointment Comment: [phone], [facility], [place], [place] Therapist Name of Therapist: MORGAN? Dena? Financial Brokers Name of Financial Brokers: Sar[facility] Post Discharge Appointments Primary Care Physician Name Of Family Doctor: [facility] Date of Appointment with PCP: 03/09/19 Time of Appointment with PCP: 12pm Provider Appointment Comment: [address] [facility] [place] [address] Contact Information Discharge Discharge [address]: [address] [place] [address] [place] [id number] CPT Code CPT Code 62170 (1) Depression Active/Remission status: currently active Depression Type: major depressive disorder Major depression episode severity: severe Major depression recurrence: recurrent Psychotic features: with psychotic features Qualified Code(s): F33.3 - Major depressive disorder, recurrent, severe with psychotic symptoms
[2019-02-27] MEDS: SERTRALINE HCL 50 MG TABLET PO SCH (08:36)
[2019-02-27] MEDS: ARIPiprazole 5 MG TAB PO SCH (12:08)
[2019-02-27] MEDS: SIMVASTATIN 40 MG TAB PO SCH (21:19)
[2019-02-28 07:35] LABS: INR 2.9 (0.9-1.1); Prothrombin Time 27.4 Seconds (9.0-12.0)
[2019-02-28] MEDS: SERTRALINE HCL 100 MG TABLET PO SCH (08:41)
[2019-02-28] MEDS: ARIPiprazole 5 MG TAB PO SCH (08:41)
[2019-02-28] MEDS: WARFARIN SOD 5 MG TAB PO SCH (15:45)
--- NOTE | 2019-02-28 18:24 | Psychiatric Progress Note ---
Date of Service February 28, 2019 Impression / Recommendations Impression 58-year-old single male with a history of severe recurrent depression with psychosis, anxiety NOS, PE/DVT on Coumadin, and noncompliance with mental health treatment who is admitted voluntarily after a suicide attempt by overdose on an unknown [id number] sleeping medication (likely diphenhydramine or melatonin, as acetaminophen level was negative). He has a history of previous suicide attempt by overdose, and severe psychotic depression with multiple past hospitalizations, 2 courses of ECT, and noncompliance with outpatient treatment, which led to an involuntary outpatient commitment during his last psychiatric hospitalization here in 2016. He presented with supratherapeutic INR, and Coumadin has been adjusted. He remains severely depressed, ruminative, and isolating in his room, and initially would not agreed to referrals for outpatient treatment or appropriate medication adjustments, with circular reasoning about why he does not need it (he feels better, he will need it, but nothing helps him to feel better), so a 304 commitment hearing was scheduled for 03/02/2019. He is intermittently refusing medication, initially sertraline, and now quetiapine, due to delusional beliefs that he is breaking out in acne. Aripiprazole initiated at 5mg to replace quetiapine, as patient had been refusing the medication. Mood and suicidality are no better than on admission. He remains at risk of , disability, or serious injury as a result of his psychiatric conditions, and inpatient treatment is least restrictive level of care. We will continue to encourage him to engage fully in treatment, except referrals for case management, therapy, and psychiatric care, and to have a family meeting with his brother and/or friends. In the past, he complied with outpatient treatment while on an involuntary outpatient commitment, but stopped medications and stopped attending appointments as soon as it lapsed, so we are again pursuing this as a way to keep him stable and in treatment and decrease his risk of suicide, which is high without appropriate treatment. (1) Intentional overdose of drug in tablet form: 02/17 - Patient reports intentional overdose on an unknown liho-zkp-ovrmxpy sleep medication, is likely diphenhydramine or melatonin based on lack of an elevated acetaminophen level on his toxicology screen. -It would be helpful to identify a friend or family to go to his apartment and retrieve the medication, as well as any other medications in order to limit his access to large amounts of medications, given his history of at least 2 serious overdoses. -Ideally the patient's access to his Coumadin would be restricted, again due to the risk in overdose, but he lives alone and our ability to secure that medication after discharge may be limited. -Encourage group attendance and participation, work on healthy coping skills and a discharge safety plan. 02/18 - Suicidality and hopelessness is ongoing - "like the same as it was" 02/21 - SI and hopelessness ongoing. 02/24 - hopelessness continues, but slight improvement, and willing to work toward a plan for discharge on an involuntary outpatient commitment next week. He indicates that he is looking forward to starting a [employer] soon. 02/26 - hopelessness and suicidality have again worsened, and he is unable to contract for safety outside of the hospital. (2) Depression: 02/17 -patient presents with severe depression and psychotic features. Cannot rule out a delusional disorder with respect to his chronically expressed belief that his life is doomed because he received the "bad feminine genes," while his brothers received the "good genes," who have had good health and lives. -Previous good response to quetiapine and sertraline, and the patient agrees to resume these medications to target mood, anxiety, sleep, and ruminations/delusions. -Start sertraline 50 mg daily and quetiapine 50 mg at bedtime with a repeat dose x1 as needed for sleep. We will titrate to previously effective doses of 200 mg every morning and 200 mg at bedtime, respectively. -Fasting lipid profile and glucose ordered for tomorrow morning for monitoring on an atypical antipsychotic. -Recommend family meeting with friend Luis Felipe and/or brothers. -Patient will need to be referred for outpatient services, including psychiatric care, therapy, and case management. Coordinate with the [facility] service unit regarding his past treatment, specifically to clarify if he dropped out of treatment after his IOC , as this may argue toward the need for another IOC. -Explore ways to increase his supports in the community. 02/18 - Reviewed recommendation to continue titration of sertraline and quetiapine - patient only willing to increase one medication at this time, and chose quetiapine. - Will increase quetiapine to 100mg this evening; continue sertraline at 50mg for now with ongoing titration of both as tolerated - Fasting labs reviewed - glucose elevated at 116; lipid panel WNL - Family meeting with brother scheduled for tomorrow - Continue to explore aftercare/discharge planning 02/19 --slept better following increase in Seroquel, he is refusing additional titration today. 02/20 --titrate Zoloft to 100 mg, patient agreed. 02/21 - Patient refused sertraline this AM due to severe depression and not wanting to have to take meds. Continue to educate and offer medication, continue 302 and meds over objection if continues to refuse treatment. Encourage him to be out of his room and to attend groups. -Continue sertraline 100 mg at bedtime; he has refused further titration, but previously did well on 200 mg at bedtime. Sleep is improving. -Patient refused a family meeting, and we will continue to discuss and explore this with him, as he would clearly benefit from increased outpatient supports and socialization. 02/22 - Pt took sertraline 100mg this AM, but continues to refuse recommendation for continued titration of medications to previously stabilizing doses - and unable to provide rational reasoning for his refusal - Will order 150mg of quetiapine for this evening, and 150mg of sertraline for tomorrow morning - patient was informed of this change being made. If refusal, patient can be offered his previous doses of 100mg of each of the above medications - Will consider possible need to pursue involuntary inpatient commitment, as patient's behavior is not conducive with his current voluntary status and he is making not improvements - Continue to encourage a family meeting prior to discharge 02/23 -Medications increased as above. File for 304 involuntary commitment. Discussed this with patient, including that we may need to refer him for long- term inpatient treatment if he remains unwilling to fully engage in treatment and work on discharge planning. 02/24 -Continue current medications and continue to discuss increase to 200 mg sertraline, which today the patient declined. -Recommend involving his supports and a family meeting prior to discharge. Refer for outpatient treatment. 304 hearing 03/02/2019. 02/25 - Continue current medication regimen; he continues to decline previously st abilizing doses of quetiapine and sertraline (200mg each) - Continue to recommend involvement of family and willingness for additional outpatient support 02/26 -Patient refused sertraline yesterday, and initially refused it this morning, but then agreed to take a partial dose (100 mg). He initially stated he thought it was causing acne, but now says he was mistaken and it must be another medicat ion. Encouraged him to take the full prescribed dose, and to allow us to titrate it to the previously effective dose of 200 mg daily. He is so focused on his negative ruminations that he is unable to fully engage in the interview. Continue to encourage him to allow titration of his medications to fully address his symptoms. -Patient reporting acne on his back and chest, which on exam is minimal. He reports previous good response to topical antibiotic, contacted pharmacy regarding what is available on formulary and am awaiting a call back. 02/27 - Patient now refusing quetiapine, believing it is causing acne breakout, although no acne visible. Offered Adapalene or Differen which could be brought in from OP pharmacy, and he declines. - Continue sertraline and increase to 200 mg daily for tomorrow to target depression. As patient refusing to take quetiapine, discussed alternative medications for augmentation and psychosis, and he agreed to a trial of aripiprazole. Reviewed risks and side effects. Start 5 mg daily. 02/28 - Continue current medication regimen; 200mg of sertraline and 5mg of aripiprazole - Continue to provide education on current medications to motivate patient toward compliance (3) Anxiety: 02/17 -patient endorses obsessional ruminations, but no compulsions, as well as some COSME symptoms. Has been diagnosed with anxiety NOS in the past. Previously responded well to sertraline, resume as above. -Hydroxyzine as needed for sleep and anxiety. -Work on healthy ways to cope with anxiety, and refer for outpatient therapy. (4) Anticoagulant long-term use: 02/17 -INR is typically stable in the 2-3 range, but has trended up over the past month, was 3.1 on 01/17/2019, 4.0 on 02/05/2019, and 4.5 in the ER yesterday. Rechecked this morning after discussing with Dr. Loyoal, and it remains supratherapeutic at 4.5. Per her recommendations, will hold Coumadin and check daily PT and INR, and if it rises above 4.5, will treat with 5 mg of vitamin K p.o. She can be contacted for further recommendations if needed. 02/18 - Appreciate recommendations from Anticoagulation Clinic - Will continue daily PT and INR; improved today to 29.5 and 3.1 respectively - Recommendations are to resume home schedule starting this evening (5mg daily each day exception Thursday, when he receives 10mg - 65mg weekly total) - Additional recommendations available in Consultation note 02/21 -INR was 2.6 and 2.9 the last 2 days, and today is 3.3. Continue with daily INRs and adjust Coumadin as needed. 02/22 - Psychiatrist reviewed with Dr. Loyola as INR 4.1 today. She recommended holding Coumadin today, resume tomorrow at lower dose of 5mg daily Antoine and W, and 10mg on , , , , . Continue daily INRs. 02/23 -Resume Coumadin at lower dose as above, continue daily INR 02/24 -INR 3.3 yesterday, and 2.1 today. Continue Coumadin with daily labs. 02/25 - INR remains 2.1 today; continue daily labs 02/26 -INR 2.7. 02/27 -INR 3.4 02/28 - INR 2.9 Inventory Assets Strengths: Compliance with medical appts, stable housing, supportive family Needs: Noncompliance with OP treatment, lack of supports Risk Factors Assessment Male: Yes : Yes Do You Have Access To A Gun?: No Health Problems: Yes Mental Health Diagnoses: Yes Substance Use Disorders: No Previous Attempt: Yes Family History of Suicide: No Previous Psychiatric Hospitalization: Yes Hopelessness: Yes Smoker: No Protective Factors Assessment Advent Beliefs: No : No Responsible for Young Children: No Employed: No Stable Relationships: No Supportive Family: Yes Good Rapport with Provider: No Interval History Identifying Information YINKA ROMERO is a 58-year-old M who currently lives in an [place] alone, has a history of recurrent, severe depression with psychosis, anxiety NOS, and history of DVT/PE on chronic anticoagulation, and was admitted on 02/17/19 00:37 on a 201 voluntary commitment for depression and suicidality, after an overdose on approximately 25 tabs of an unknown xplc-oqj-pmmvarb sleep medication. Chief Complaint "Not good. I'm so stupid, I knew I was anxious. I don't know why I didn't just buy the medication off the shelf, it's that easy - I just didn't do it." Review of Systems Notes Constitutional: reports "blurry vision" and concern for "acne" which has not been visualized Cardiovascular: denied Respiratory: denied Gastrointestinal: denied Neurological: denied Psychiatric: denies symptoms other than stated above Total of at least 10 systems reviewed, pertinent positives as above and in HPI. Sleep Information Total Hours of Sleep: 4.75 Sleep Comments: came out of room and began to walk laps at 0540. patient pleasant and talkative with staff. Meal Information Percent Meal Consumed - Breakfast: 100 Percent Meal Consumed - Lunch: 100 Percent Meal Consumed - Dinner: 100 Nutrition Comment: per meal record Subjective Subjective Patient was seen & assessed and interval progress reviewed with treatment team. Staff report the patient had brightened, somewhat inappropriately, last evening after the arrival of a new female patient on the unit. Following this, he had rated his mood a 7/10 and "better." His 304 hearing is scheduled for 03/02/19. Pt was seen today to assess progress since admission. Pt continues to ruminate, today sharing how "stupid" he feels as "I knew from before the Zoloft was helpful for my anxiety, I should have known I can get it off the counter. I don't know why I didn't just buy it on the shelves, I'm so stupid." Pt was informed that Zoloft is actually not available over the counter and this provider emphasized that this is why it is important to continue to take prescribed medication and follow-up with his outpatient providers. Pt continues to be dismissive of any comments made by this provider, as he spends several minutes circling from his regret about not getting his SSRI [id number], his dislike that he was offered medications "with steroids in 'em", and his belief that several days he was "fantastic enough they told me I could go home." Pt offers a rather distorted perception of his admission thus far, believing his period of noncompliance was due to "laying down one day and getting into a state, one where you don't move or nothing." Pt was informed that his medications on admission were no different than the regimen he had been discharged on following his last admission. He is frustrated after learning that Zoloft is used to treat anxiety and depression - "well that covers everything then, the Zoloft was perfect at 150, I don't know why anything else had to be added in." This provider attempted to offer the patient additional insight into his condition, and the fact that he was not doing well on 150mg of Zoloft - but he continued to speak over this provider's attempts to review his treatment course thus far. He verbalized ongoing hopelessness, and did not clearly deny SI. Physical Exam Psychiatric Orientation: alert, oriented x 3 and cooperative (only superficially) Apperance: appropriately dressed, + disheveled and appeared stated age Eye Contact: + poor eye contact (staring directly forward or squinting/eyes shut) Motor Behavior: steady gait and station and no abnormal motor movements Speech: normal rate/rhythm/volume of speech Affect: + depressed affect and + anxious affect Mood: no depressed mood and no anxious mood "I'm better, I was doing fine. There's no more anxiety, but they changed meds." Thought Process: + circumstantial thought process, + perseveration (ongoing hopelessness, hyperfocus on past mistakes/decisions) and + concrete thought process Thought Content: + cognitive distortions, + delusions, + hopelessness, + worthlessness, + guilt and + self deprecation Suicidal Thoughts: + reports suicidal thoughts Hallucinations: no auditory hallucinations and no visual hallucinations Cognition: language grossly intact; + recent memory not intact and + attention not intact Insight: + severely impaired insight Judgement: + severely impaired judgement Vital Signs (Past 24 Hours) Last Vital Signs Temp 36.9 C 02/28/19 06:48 Pulse 103 H 02/28/19 06:49 Resp 18 02/28/19 06:48 BP 135/93 02/28/19 06:49 Pulse Ox 96 02/17/19 01:23 Results & Data Laboratory Results Laboratory Results - last 24 hr 02/28/19 07:06 PT 27.4 H INR 2.9 H Current Inpatient Medications Current Inpatient Medications: Current Inpatient Medications Acetaminophen (Tylenol) 650 mg PO Q4H PRN PRN Reason: Headache or Minor Fever Stop: 03/19/19 01:15 Al Hydrox/Mg Hydrox/Simethicone (Maalox) 30 ml PO Q4H PRN PRN Reason: GI Upset Stop: 03/19/19 01:15 Last Admin: 02/17/19 08:47 Dose: 30 ml Documented by: Aripiprazole (Abilify) 5 mg PO QAM [facility] Stop: 03/29/19 09:29 Last Admin: 02/28/19 08:41 Dose: 5 mg Documented by: Bismuth Subsalicylate (Kaopectate) 15 ml PO PRN PRN PRN Reason: Loose Stool Stop: 03/19/19 01:15 Magnesium Hydroxide (Milk Of Magnesia) 30 ml PO DAILY PRN PRN Reason: Heartburn Stop: 03/19/19 01:15 Sertraline HCl (Zoloft) 200 mg [facility] Stop: 03/30/19 08:59 Last Admin: 02/28/19 08:41 Dose: 200 mg Documented by: Simvastatin (Zocor) 40 mg PO [facility] Stop: 03/19/19 21:59 Last Admin: 02/27/19 21:19 Dose: 40 mg Documented by: Sodium Chloride (Morrill Nasal) 1 - 2 sprays NA PRN PRN PRN Reason: Nasal Dryness/Congestion Stop: 03/19/19 01:15 Warfarin Sodium (Coumadin) 10 mg PO [id number] [facility] Stop: 03/24/19 15:59 Last Admin: 02/26/19 15:53 Dose: 10 mg Documented by: Warfarin Sodium (Coumadin) 5 mg PO [id number] [facility] Stop: 03/25/19 15:59 Last Admin: 02/23/19 16:05 Dose: 5 mg Documented by: Mental Health & Subst Abuse Tx Psychiatrist Name of Psychiatrist: [facility] - Dr. Harrington Psychiatrist's Date of Appointment with Psychiatrist: 03/22/19 Time of Appointment with Psychiatrist: 2:30 pm Psychiatric Appointment Comment: [address] [place] [address], [facility], [place], [place] Therapist Name of Therapist: MORGAN? Dena? Quality Consultant Name of Quality Consultant: [facility] Phone Number for Quality Consultant: [phone] Case Management Appointment Comment: [address] [facility], [address], [place] Post Discharge Appointments Primary Care Physician Name Of Family Doctor: [facility] Date of Appointment with PCP: 03/09/19 Time of Appointment with PCP: 12pm Provider Appointment Comment: [address] [facility] [place] [address] Contact Information Discharge Discharge Address: [address] [place] [address] [address], [place] [address] CPT Code CPT Code 55172 (1) Depression Depression Type: major depressive disorder Major depression recurrence: recurrent Active/Remission status: currently active Major depression episode severity: severe Psychotic features: with psychotic features Qualified Code(s): F33.3 - Major depressive disorder, recurrent, severe with psychotic symptoms
[2019-02-28] MEDS: SIMVASTATIN 40 MG TAB PO SCH (21:29)
[2019-03-01] MEDS: SERTRALINE HCL 100 MG TABLET PO SCH (07:50)
[2019-03-01] MEDS: ARIPiprazole 5 MG TAB PO SCH (07:52)
[2019-03-01 08:08] LABS: Prothrombin Time 19.6 Seconds (9.0-12.0)
--- NOTE | 2019-03-01 09:07 | Psychiatric Progress Note ---
Date of Service March 01, 2019 Impression / Recommendations Impression 58-year-old single male with a history of severe recurrent depression with psychosis, anxiety NOS, PE/DVT on Coumadin, and noncompliance with mental health treatment who is admitted voluntarily after a suicide attempt by overdose on an unknown dlli-yuv-zhiexaz sleeping medication (likely diphenhydramine or melatonin, as acetaminophen level was negative). He has a history of previous suicide attempt by overdose, and severe psychotic depression with multiple past hospitalizations, 2 courses of ECT, and noncompliance with outpatient treatment, which led to an involuntary outpatient commitment during his last psychiatric hospitalization here in 2015. He then dropped out of treatment after his commitment . He presented with supratherapeutic INR, and Coumadin has been adjusted. He remains severely depressed, ruminative, and isolating in his room, and initially would not agree to a family meeting, appropriate doses of medications, referrals for outpatient treatment or appropriate medication adjust ments, with circular reasoning about why he does not need it (he feels better, he will need it, but nothing helps him to feel better), so a 304 commitment hearing was scheduled for 03/02/2019. He is intermittently refusing medication, initially sertraline, and then quetiapine, due to delusional beliefs that he is breaking out. He remains depressed and hopeless, with psychotic rumination and circular reasoning. He is now agreeing to aftercare and today agreed to a family meeting with his friends. He remains at risk of , disability, or serious injury as a result of his psychiatric conditions, and inpatient treatment is least restrictive level of care. We will continue to encourage him to engage fully in treatment, except referrals for case management, therapy, and psychiatric care, and to have a family meeting with his brother and/or friends. In the past, he complied with outpatient treatment while on an involuntary outpatient commitment, but stopped medications and stopped attending appointments as soon as it lapsed, so we are again pursuing this as a way to keep him stable and in treatment and decrease his risk of suicide, which is high without appropriate treatment. (1) Intentional overdose of drug in tablet form: 02/17 - Patient reports intentional overdose on an unknown hfpp-tvj-cdixpfl sleep medication, is likely diphenhydramine or melatonin based on lack of an elevated acetaminophen level on his toxicology screen. -It would be helpful to identify a friend or family to go to his apartment and retrieve the medication, as well as any other medications in order to limit his access to large amounts of medications, given his history of at least 2 serious overdoses. -Ideally the patient's access to his Coumadin would be restricted, again due to the risk in overdose, but he lives alone and our ability to secure that medication after discharge may be limited. -Encourage group attendance and participation, work on healthy coping skills and a discharge safety plan. 02/18 - Suicidality and hopelessness is ongoing - "like the same as it was" 02/21 - SI and hopelessness ongoing. 02/24 - hopelessness continues, but slight improvement, and willing to work toward a plan for discharge on an involuntary outpatient commitment next week. He indicates that he is looking forward to starting a [employer] league soon. 02/26 - hopelessness and suicidality have again worsened, and he is unable to contract for safety outside of the hospital. 03/01 -patient denies active suicidal ideation, but endorses ongoing depression, severe anxiety, negative ruminations, and has not been noncompliant with medication, so remains at high risk for decompensation with return of suicidal thoughts and a suicide attempt if discharged prematurely. (2) Depression: 02/17 -patient presents with severe depression and psychotic features. Cannot rule out a delusional disorder with respect to his chronically expressed belief that his life is doomed because he received the "bad feminine genes," while his brothers received the "good genes," who have had good health and lives. -Previous good response to quetiapine and sertraline, and the patient agrees to resume these medications to target mood, anxiety, sleep, and ruminations/delusions. -Start sertraline 50 mg daily and quetiapine 50 mg at bedtime with a repeat dose x1 as needed for sleep. We will titrate to previously effective doses of 200 mg every morning and 200 mg at bedtime, respectively. -Fasting lipid profile and glucose ordered for tomorrow morning for monitoring on an atypical antipsychotic. -Recommend family meeting with friend Luis Felipe and/or brothers. -Patient will need to be referred for outpatient services, including psychiatric care, therapy, and case management. Coordinate with the base service unit regarding his past treatment, specifically to clarify if he dropped out of treatment after his IOC , as this may argue toward the need for another IOC. -Explore ways to increase his supports in the community. 02/18 - Reviewed recommendation to continue titration of sertraline and quetiapine - patient only willing to increase one medication at this time, and chose quetiapine. - Will increase quetiapine to 100mg this evening; continue sertraline at 50mg for now with ongoing titration of both as tolerated - Fasting labs reviewed - glucose elevated at 116; lipid panel WNL - Family meeting with brother scheduled for tomorrow - Continue to explore aftercare/discharge planning 02/19 --slept better following increase in Seroquel, he is refusing additional titration today. 02/20 --titrate Zoloft to 100 mg, patient agreed. 02/21 - Patient refused sertraline this AM due to severe depression and not wanting to have to take meds. Continue to educate and offer medication, continue 302 and meds over objection if continues to refuse treatment. Encourage him to be out of his room and to attend groups. -Continue sertraline 100 mg at bedtime; he has refused further titration, but previously did well on 200 mg at bedtime. Sleep is improving. -Patient refused a family meeting, and we will continue to discuss and explore this with him, as he would clearly benefit from increased outpatient supports and socialization. 02/22 - Pt took sertraline 100mg this AM, but continues to refuse recommendation for continued titration of medications to previously stabilizing doses - and unable to provide rational reasoning for his refusal - Will order 150mg of quetiapine for this evening, and 150mg of sertraline for tomorrow morning - patient was informed of this change being made. If refusal, patient can be offered his previous doses of 100mg of each of the above medications - Will consider possible need to pursue involuntary inpatient commitment, as patient's behavior is not conducive with his current voluntary status and he is making not improvements - Continue to encourage a family meeting prior to discharge 02/23 -Medications increased as above. File for 304 involuntary commitment. Discussed this with patient, including that we may need to refer him for long- term inpatient treatment if he remains unwilling to fully engage in treatment and work on discharge planning. 02/24 -Continue current medications and continue to discuss increase to 200 mg sertraline, which today the patient declined. -Recommend involving his supports and a family meeting prior to discharge. Refer for outpatient treatment. 304 hearing 03/02/2019. 02/25 - Continue current medication regimen; he continues to decline previously stabilizing doses of quetiapine and sertraline (200mg each) - Continue to recommend involvement of family and willingness for additional outpatient support 02/26 -Patient refused sertraline yesterday, and initially refused it this morning, but then agreed to take a partial dose (100 mg). He initially stated he thought it was causing acne, but now says he was mistaken and it must be another medication. Encouraged him to take the full prescribed dose, and to allow us to titrate it to the previously effective dose of 200 mg daily. He is so focused on his negative ruminations that he is unable to fully engage in the interview. Continue to encourage him to allow titration of his medications to fully address his symptoms. -Patient reporting acne on his back and chest, which on exam is minimal. He reports previous good response to topical antibiotic, contacted pharmacy regarding what is available on formulary and am awaiting a call back. 02/27 - Patient now refusing quetiapine, believing it is causing acne breakout, although no acne visible. Offered Adapalene or Differen which could be brought in from OP pharmacy, and he declines. - Continue sertraline and increase to 200 mg daily for tomorrow to target depression. As patient refusing to take quetiapine, discussed alternative medications for augmentation and psychosis, and he agreed to a trial of aripiprazole. Reviewed risks and side effects. Start 5 mg daily. 02/28 - Continue current medication regimen; 200mg of sertraline and 5mg of aripiprazole - Continue to provide education on current medications to motivate patient toward compliance 03/01 - Aripiprazole not affordable. Recommend return to quetiapine 150mg HS, as patient refusing 200mg dose (which was previously effective for him for psychotic anxious depression). He is refusing this as he thinks it caused him to break out. He did agree to revisit this discussion if he is not improving on an SSRI alone, as that is all he will agree to take right now. For now, I have ordered quetiapine 100 mg at bedtime as needed. - Patient will only agree to sertraline 150mg and will not take a higher dose, although he previously did well on 200mg and tolerated it well. Will therefore order 150mg dose, but advised him that we will need to continue to assess his response and that he may need a higher dose. - He is refusing a family meeting with his brothers, saying they won't talk to him any more, but agrees to a meeting with friends Josias and Rafiq. (3) Anxiety: 02/17 -patient endorses obsessional ruminations, but no compulsions, as well as some COSME symptoms. Has been diagnosed with anxiety NOS in the past. Previously responded well to sertraline, resume as above. -Hydroxyzine as needed for sleep and anxiety. -Work on healthy ways to cope with anxiety, and refer for outpatient therapy. (4) Anticoagulant long-term use: 02/17 -INR is typically stable in the 2-3 range, but has trended up over the past month, was 3.1 on 01/17/2019, 4.0 on 02/05/2019, and 4.5 in the ER yesterday. Rechecked this morning after discussing with Dr. Loyola, and it remains antoine pratherapeutic at 4.5. Per her recommendations, will hold Coumadin and check daily PT and INR, and if it rises above 4.5, will treat with 5 mg of vitamin K p.o. She can be contacted for further recommendations if needed. 02/18 - Appreciate recommendations from Anticoagulation Clinic - Will continue daily PT and INR; improved today to 29.5 and 3.1 respectively - Recommendations are to resume home schedule starting this evening (5mg daily each day exception Thursday, when he receives 10mg - 65mg weekly total) - Additional recommendations available in Consultation note 02/21 -INR was 2.6 and 2.9 the last 2 days, and today is 3.3. Continue with daily INRs and adjust Coumadin as needed. 02/22 - Psychiatrist reviewed with Dr. Loyola as INR 4.1 today. She recommended holding Coumadin today, resume tomorrow at lower dose of 5mg daily Antoine and W, and 10mg on , , , , . Continue daily INRs. 02/23 -Resume Coumadin at lower dose as above, continue daily INR 02/24 -INR 3.3 yesterday, and 2.1 today. Continue Coumadin with daily labs. 02/25 - INR remains 2.1 today; continue daily labs 02/26 -INR 2.7. 02/27 -INR 3.4 02/28 - INR 2.9 Inventory Assets Strengths: Compliance with medical appts, stable housing, supportive family Needs: Noncompliance with OP treatment, lack of supports Risk Factors Assessment Male: Yes : Yes Do You Have Access To A Gun?: No Health Problems: Yes Mental Health Diagnoses: Yes Substance Use Disorders: No Previous Attempt: Yes Family History of Suicide: No Previous Psychiatric Hospitalization: Yes Hopelessness: Yes Smoker: No Protective Factors Assessment Shinto Beliefs: No : No Responsible for Young Children: No Employed: No Stable Relationships: No Supportive Family: Yes Good Rapport with Provider: No Interval History Identifying Information YINKA ROMERO is a 58-year-old M who currently lives in an [place] alone, has a history of recurrent, severe depression with psychosis, anxiety NOS, and history of DVT/PE on chronic anticoagulation, and was admitted on 02/17/19 00:37 on a 201 voluntary commitment for depression and suicidality, after an overdose on approximately 25 tabs of an unknown pwek-kst-ermjwur sleep medication. Chief Complaint "Feel like I'm never gonna get out of here". Review of Systems Notes Denies pain, JIMENEZ, GI symptoms Sleep Information Total Hours of Sleep: 7 Sleep Comments: came out of room and began to walk laps at 0540. patient pleasant and talkative with staff. Meal Information Percent Meal Consumed - Breakfast: 100 Percent Meal Consumed - Lunch: 100 Percent Meal Consumed - Dinner: 0 Nutrition Comment: per meal record Subjective Subjective Patient was seen & assessed and interval progress reviewed with nursing and social work. Staff report he refused his full dose of sertraline, and would only take a partial dose. The aripiprazole was held as his copay was found to be $300. He was out of bed and attended groups during the day yesterday, but returned to bed in the evening and refused all evening groups. He is perseverating on how he went back to bed one day early in treatment and "ruined everything," thinking that this caused him to be irrevocably depressed and that he will never get better. He agreed to a window caser and has been referred for therapy. On my assessment, he is able to say that he improved on his medications when here in 2016 (sertraline 200mg and quetiapine 200mg), and that he "should've stayed on those medications, wouldn't be here now." He then says he won't take higher dose of sertraline because he felt great for a few hours one day last week and thinks he should stay on the dose he took that day, because it was working. He then says he had a headache the day he took 200mg (02/28) of sertraline, so does not want to take that dose, and will only agreed to take 150 mg daily. He says he wants to be on sertraline alone, as he thinks quetiapine caused acne. He reports he "just has bad skin, always have," and has had chronic skin problems in the past necessitating oral medication for acne, but remains convinced that a medication he took here caused him to break out (although no ac ne visible per multiple staff examinations). He is not reassured by review of these medications and their side effects and that they do not usually cause acne. He is unable to reconcile the conflicting statements he makes that he did well on 200 mg of sertraline and quetiapine in the past and that he should have kept taking the medications which would have prevented his current episode of depression and hospitalization, and his refusal to resume those medications now to treat the same symptoms. He reports depressed mood "because of the thing tomorrow" (304 hearing), and his catastrophic thinking that he will never get well or be able to leave the hospital. He denies SI but says he's "not living, this is no way to live, it's just my own fault...if I would've just stayed on it like I was supposed to, wouldn't have any problems, ya idiot." He makes multiple self-deprecating statements, including that he is stupid, dumb, cannot think, etc. Physical Exam Psychiatric Orientation: alert, oriented x 3 and cooperative Apperance: appropriately dressed, appropriately groomed and appeared stated age Eye Contact: good eye contact Motor Behavior: steady gait and station and no abnormal motor movements Speech: + loud speech Affect: + depressed affect, + anxious affect and mood congruent with affect Mood: + depressed mood and + anxious mood circular reasoning, illogical, conflicting statements that he can't reconcile Thought Content: + preoccupation, + hopelessness, + worthlessness and + guilt Suicidal Thoughts: denies suicidal thoughts Homicidal Thoughts: denies homicidal thoughts Hallucinations: no auditory hallucinations and no visual hallucinations Cognition: attention grossly intact and language grossly intact Insight: + impaired insight Judgement: + impaired judgement Vital Signs (Past 24 Hours) Last Vital Signs Temp 36.6 C 03/01/19 06:00 Pulse 83 03/01/19 06:46 Resp 16 03/01/19 06:00 BP 128/86 03/01/19 06:46 Pulse Ox 96 02/17/19 01:23 Results & Data Laboratory Results Laboratory Results - last 24 hr 03/01/19 07:42 PT 19.6 H INR 2.0 H Current Inpatient Medications Current Inpatient Medications: Current Inpatient Medications Acetaminophen (Tylenol) 650 mg PO Q4H PRN PRN Reason: Headache or Minor Fever Stop: 03/19/19 01:15 Al Hydrox/Mg Hydrox/Simethicone (Maalox) 30 ml PO Q4H PRN PRN Reason: GI Upset Stop: 03/19/19 01:15 Last Admin: 02/17/19 08:47 Dose: 30 ml Documented by: [facility] ([facility]il[facility]) [facility] [place] Stop: 03/29/19 09:29 Last Admin: 03/01/19 07:52 Dose: Not Given Documented by: Bismuth Subsalicylate (Kaopectate) 15 ml PO PRN PRN PRN Reason: Loose Stool Stop: 03/19/19 01:15 Magnesium Hydroxide (Milk Of Magnesia) 30 ml PO DAILY PRN PRN Reason: Heartburn Stop: 03/19/19 01:15 Sertraline HCl (Zoloft) 200 [facility] [place] Stop: 03/30/19 08:59 Last Admin: 03/01/19 07:50 Dose: 150 mg Documented by: Simvastatin (Zocor) 40 mg PO [facility] Stop: 03/19/19 21:59 Last Admin: 02/28/19 21:29 Dose: 40 mg Documented by: Sodium Chloride ([place] Nasal) 1 - 2 sprays NA PRN PRN PRN Reason: Nasal Dryness/Congestion Stop: 03/19/19 01:15 Warfarin Sodium (Coumadin) 5 mg PO MoWeFr@1600 [facility] Stop: 03/30/19 15:59 Last Admin: 02/28/19 15:45 Dose: 5 mg Documented by: Warfarin Sodium (Coumadin) 10 mg PO SuTuThSa@1600 [facility] Stop: 03/31/19 15:59 Mental Health & Subst Abuse Tx Psychiatrist Name of Psychiatrist: [facility] - Dr. Harrington Psychiatrist's Date of Appointment with Psychiatrist: 03/22/19 Time of Appointment with Psychiatrist: 2:30 pm Psychiatric Appointment Comment: [address] [place] [address] [address], [place], [place] Therapist Name of Therapist: [facility]? Dena? Customer Counter Representative Name of Customer Counter Representative: [facility] Phone Number for Customer Counter Representative: [phone] Case Management Appointment Comment: [address] [facility], [address], [place] Post Discharge Appointments Primary Care Physician Name Of Family Doctor: [facility] - Dr. [facility] Date of Appointment with PCP: 03/09/19 Time of Appointment with PCP: 12pm Provider Appointment Comment: [address] [place] [address] [place] [address] Contact Information Discharge Discharge [address]: [address] [place] [address], [address] [address] CPT Code CPT Code 24552 (1) Depression Depression Type: major depressive disorder Major depression recurrence: recurrent Active/Remission status: currently active Major depression episode severity: severe Psychotic features: with psychotic features Qualified Code(s): F33.3 - Major depressive disorder, recurrent, severe with psychotic symptoms
[2019-03-01] MEDS ORDERED: QUETIAPINE FUMARATE 100 MG TABLET PO PRN (09:18)
[2019-03-01] MEDS: WARFARIN SOD 10 MG TAB PO SCH (15:56)
[2019-03-01] MEDS: SIMVASTATIN 40 MG TAB PO SCH (21:17)
--- NOTE | 2019-03-02 08:17 | Psychiatric Progress Note ---
Date of Service March 02, 2019 Impression / Recommendations Impression 58-year-old single male with a history of severe recurrent depression with psychosis, anxiety NOS, PE/DVT on Coumadin, and noncompliance with mental health treatment who is admitted voluntarily after a suicide attempt by overdose on an unknown pnoe-csi-fkuavnr sleeping medication (possibly diphenhydramine or melatonin, as acetaminophen level was negative). He has a history of a previous suicide attempt by overdose, and severe psychotic depression with multiple past hospitalizations, 2 courses of ECT, and noncompliance with outpatient treatment, which led to an involuntary outpatient commitment during his last psychiatric hospitalization here in 2015. He then dropped out of treatment after his commitment . He remains severely depressed, ruminative, and isolating in his room, and initially would not agree to a family meeting, appropriate doses of medications, referrals for outpatient treatment or appropriate medication adjustments, with circular reasoning about why he does not need it (he feels better, he will need it, but nothing helps him to feel better), so a 304 commitment hearing was scheduled, and was granted today. He is intermittently refusing medication, initially sertraline, and then quetiapine, due to delusional beliefs that they caused acne. He remains depressed and hopeless, with psychotic rumination and circular reasoning. He is very slowly improving, has agreed to referrals for outpatient treatment and a family meeting with his friends, but remains unwilling to take the antidepressant and antipsychotic at doses that were previously effective, which decreases his chances of recovery. He remains at risk of , disability, or serious injury as a result of his psychiatric conditions, and inpatient treatment is least restrictive level of care. We will continue to encourage him to engage fully in treatment, except effective doses of medications, and work on discharge planning. In the past, he complied with outpatient treatment while on an involuntary outpatient commitment, but stopped medications and stopped attending appointments as soon as it lapsed, so we will again pursue this at discharge as a way to keep him stable and in treatment and decrease his risk of suicide, which is high without appropriate treatment. (1) Intentional overdose of drug in tablet form: 02/17 - Patient reports intentional overdose on an unknown zdut-cpl-olwwbtf sleep medication, is likely diphenhydramine or melatonin based on lack of an elevated acetaminophen level on his toxicology screen. -It would be helpful to identify a friend or family to go to his apartment and retrieve the medication, as well as any other medications in order to limit his access to large amounts of medications, given his history of at least 2 serious overdoses. -Ideally the patient's access to his Coumadin would be restricted, again due to the risk in overdose, but he lives alone and our ability to secure that medication after discharge may be limited. -Encourage group attendance and participation, work on healthy coping skills and a discharge safety plan. 02/18 - Suicidality and hopelessness is ongoing - "like the same as it was" 02/21 - SI and hopelessness ongoing. 02/24 - hopelessness continues, but slight improvement, and willing to work toward a plan for discharge on an involuntary outpatient commitment next week. He indicates that he is looking forward to starting a [employer] soon. 02/26 - hopelessness and suicidality have again worsened, and he is unable to contract for safety outside of the hospital. 03/01 -patient denies active suicidal ideation, but endorses ongoing depression, severe anxiety, negative ruminations, and has not been noncompliant with medication, so remains at high risk for decompensation with return of suicidal thoughts and a suicide attempt if discharged prematurely. (2) Depression: 02/17 -patient presents with severe depression and psychotic features. Ca nnot rule out a delusional disorder with respect to his chronically expressed belief that his life is doomed because he received the "bad feminine genes," while his brothers received the "good genes," who have had good health and lives. -Previous good response to quetiapine and sertraline, and the patient agrees to resume these medications to target mood, anxiety, sleep, and ruminations/delusions. -Start sertraline 50 mg daily and quetiapine 50 mg at bedtime with a repeat dose x1 as needed for sleep. We will titrate to previously effective doses of 200 mg every morning and 200 mg at bedtime, respectively. -Fasting lipid profile and glucose ordered for tomorrow morning for monitoring on an atypical antipsychotic. -Recommend family meeting with friend Luis Felipe and/or brothers. -Patient will need to be referred for outpatient services, including psychiatric care, therapy, and case management. Coordinate with the base service unit regarding his past treatment, specifically to clarify if he dropped out of treatment after his IOC , as this may argue toward the need for another IOC. -Explore ways to increase his supports in the community. 02/18 - Reviewed recommendation to continue titration of sertraline and quetiapine - patient only willing to increase one medication at this time, and chose quetiapine. - Will increase quetiapine to 100mg this evening; continue sertraline at 50mg for now with ongoing titration of both as tolerated - Fasting labs reviewed - glucose elevated at 116; lipid panel WNL - Family meeting with brother scheduled for tomorrow - Continue to explore aftercare/discharge planning 02/19 --slept better following increase in Seroquel, he is refusing additional titration today. 02/20 --titrate Zoloft to 100 mg, patient agreed. 02/21 - Patient refused sertraline this AM due to severe depression and not wanting to have to take meds. Continue to educate and offer medication, continue 302 and meds over objection if continues to refuse treatment. Encourage him to be out of his room and to attend groups. -Continue sertraline 100 mg at bedtime; he has refused further titration, but previously did well on 200 mg at bedtime. Sleep is improving. -Patient refused a family meeting, and we will continue to discuss and explore this with him, as he would clearly benefit from increased outpatient supports and socialization. 02/22 - Pt took sertraline 100mg this AM, but continues to refuse recommendation for continued titration of medications to previously stabilizing doses - and unable to provide rational reasoning for his refusal - Will order 150mg of quetiapine for this evening, and 150mg of sertraline for tomorrow morning - patient was informed of this change being made. If refusal, patient can be offered his previous doses of 100mg of each of the above medications - Will consider possible need to pursue involuntary inpatient commitment, as patient's behavior is not conducive with his current voluntary status and he is making not improvements - Continue to encourage a family meeting prior to discharge 02/23 -Medications increased as above. File for 304 involuntary commitment. Discussed this with patient, including that we may need to refer him for long- term inpatient treatment if he remains unwilling to fully engage in treatment and work on discharge planning. 02/24 -Continue current medications and continue to discuss increase to 200 mg sertraline, which today the patient declined. -Recommend involving his supports and a family meeting prior to discharge. Refer for outpatient treatment. 304 hearing 03/02/2019. 02/25 - Continue current medication regimen; he continues to decline previously stabilizing doses of quetiapine and sertraline (200mg each) - Continue to recommend involvement of family and willingness for additional outpatient support 02/26 -Patient refused sertraline yesterday, and initially refused it this morning, but then agreed to take a partial dose (100 mg). He initially stated he thought it was causing acne, but now says he was mistaken and it must be another medication. Encouraged him to take the full prescribed dose, and to allow us to titrate it to the previously effective dose of 200 mg daily. He is so focused on his negative ruminations that he is unable to fully engage in the interview. Continue to encourage him to allow titration of his medications to fully address his symptoms. -Patient reporting acne on his back and chest, which on exam is minimal. He reports previous good response to topical antibiotic, contacted pharmacy regarding what is available on formulary and am awaiting a call back. 02/27 - Patient now refusing quetiapine, believing it is causing acne breakout, although no acne visible. Offered Adapalene or Differen which could be brought in from OP pharmacy, and he declines. - Continue sertraline and increase to 200 mg daily for tomorrow to target depression. As patient refusing to take quetiapine, discussed alternative medications for augmentation and psychosis, and he agreed to a trial of aripiprazole. Reviewed risks and side effects. Start 5 mg daily. 02/28 - Continue current medication regimen; 200mg of sertraline and 5mg of a ripiprazole - Continue to provide education on current medications to motivate patient toward compliance 03/01 - Aripiprazole not affordable. Recommend return to quetiapine 150mg HS, as patient refusing 200mg dose (which was previously effective for him for psychotic anxious depression). He is refusing this as he thinks it caused him to break out. He did agree to revisit this discussion if he is not improving on an SSRI alone, as that is all he will agree to take right now. For now, I have ordered quetiapine 100 mg at bedtime as needed. - Patient will only agree to sertraline 150mg and will not take a higher dose, although he previously did well on 200mg and tolerated it well. Will therefore order 150mg dose, but advised him that we will need to continue to assess his response and that he may need a higher dose. - He is refusing a family meeting with his brothers, saying they won't talk to him any more, but agrees to a meeting with friends Josias and Rafiq. 03/02 -304 involuntary commitment granted. Plan to transition to an involuntary outpatient commitment at the time of discharge. -Patient remains unwilling to take an atypical antipsychotic, and will only take 150 mg of sertraline. He is reporting poor sleep and agrees to a trial of trazodone, ordered 50 mg at bedtime with a repeat dose if needed. Reviewed risks, benefits, and side effects. (3) Anxiety: 02/17 -patient endorses obsessional ruminations, but no compulsions, as well as some COSME symptoms. Has been diagnosed with anxiety NOS in the past. Previously responded well to sertraline, resume as above. -Hydroxyzine as needed for sleep and anxiety. -Work on healthy ways to cope with anxiety, and refer for outpatient therapy. (4) Anticoagulant long-term use: 02/17 -INR is typically stable in the 2-3 range, but has trended up over the past month, was 3.1 on 01/17/2019, 4.0 on 02/05/2019, and 4.5 in the ER yesterday. Rechecked this morning after discussing with Dr. Loyola, and it remains supratherapeutic at 4.5. Per her recommendations, will hold Coumadin and check daily PT and INR, and if it rises above 4.5, will treat with 5 mg of vitamin K p.o. She can be contacted for further recommendations if needed. 02/18 - Appreciate recommendations from Anticoagulation Clinic - Will continue daily PT and INR; improved today to 29.5 and 3.1 respectively - Recommendations are to resume home schedule starting this evening (5mg daily each day exception Thursday, when he receives 10mg - 65mg weekly total) - Additional recommendations available in Consultation note 02/21 -INR was 2.6 and 2.9 the last 2 days, and today is 3.3. Continue with daily INRs and adjust Coumadin as needed. 02/22 - Psychiatrist reviewed with Dr. Loyola as INR 4.1 today. She recommended holding Coumadin today, resume tomorrow at lower dose of 5mg daily Antoine and W, and 10mg on , , , , . Continue daily INRs. 02/23 -Resume Coumadin at lower dose as above, continue daily INR 02/24 -INR 3.3 yesterday, and 2.1 today. Continue Coumadin with daily labs. 02/25 - INR remains 2.1 today; continue daily labs 02/26 -INR 2.7. 02/27 -INR 3.4 -Coumadin held. 02/28 - INR 2.9. Coumadin restarted and dose decreased to 5 mg Thursday, Thursday, and Thursday; and 10 mg Thursday, Thursday, , and Thursday. 03/02 -INR 2.1. Inventory Assets Strengths: Compliance with medical appts, stable housing, supportive family Needs: Noncompliance with OP treatment, lack of supports Risk Factors Assessment Male: Yes : Yes Do You Have Access To A Gun?: No Health Problems: Yes Mental Health Diagnoses: Yes Substance Use Disorders: No Previous Attempt: Yes Family History of Suicide: No Previous Psychiatric Hospitalization: Yes Hopelessness: Yes Smoker: No Protective Factors Assessment [employer] Beliefs: No : No Responsible for Young Children: No Employed: No Stable Relationships: No Supportive Family: Yes Good Rapport with Provider: No Interval History Identifying Information YINKA ROMERO is a 58-year-old M who currently lives in an [place] alone, has a history of recurrent, severe depression with psychosis, anxiety NOS, and history of DVT/PE on chronic anticoagulation, and was admitted on 02/17/19 00:37 on a 201 voluntary commitment for depression and suicidality, after an overdose on approximately 25 tabs of an unknown tmra-hjr-zxvgutt sleep medication. Chief Complaint "[]". Review of Systems Notes 10 systems reviewed; notable for somnolence, improvement of skin problems /break out, others negative except as stated above. Sleep Information Total Hours of Sleep: 5.5 Sleep Comments: came out of room and began to walk laps at 0540. patient pleasant and talkative with staff. Meal Information Percent Meal Consumed - Breakfast: 100 Percent Meal Consumed - Lunch: 100 Percent Meal Consumed - Dinner: 100 Nutrition Comment: per meal record Subjective Subjective Patient was seen & assessed and interval progress reviewed with treatment team. Staff report he was out of his room more yesterday, but pacing the halls. He declined to attend his 303 hearing today, and it was granted. On my assessment he continues to perseverate on "screwing up that time I felt so good for a few hours, never should've laid down, that ruined it for me." He is convinced that he will never be able to get out of the hospital and has destroyed his chance of recovery. He is focused on the medication he took that day and wanting to keep his antidepressant at the same dose as it worked that day. He is declining to take Seroquel and Abilify and will only agree to take sertraline 150mg. He says he didn't go to any groups yesterday or today so far, as he is too depressed and anxious. He reports good appetite, but poor sleep. He attributes this to his roommate's snoring, and states that the staff "definitely put him in there with me to punish me, they must of known that he snored and did that because I am such as a pain in the ato everyone here." He is unable to be reassured that this is not the case. He repeatedly returns to the topic of how he's "an idiot" and "should've taken those pills you gave me." Physical Exam Psychiatric Orientation: alert and cooperative Apperance: appropriately dressed Eye Contact: good eye contact and + fair eye contact Motor Behavior: steady gait and station and no abnormal motor movements Seated in chair in NAD with arms crossed over his chest Speech: normal rate/rhythm/volume of speech Affect: + depressed affect, + anxious affect and mood congruent with affect Mood: + depressed mood and + anxious mood Thought Process: + perseveration Thought Content: + preoccupation, + cognitive distortions, + delusions, + persecution, + hopelessness, + worthlessness, + guilt and + self deprecation Suicidal Thoughts: denies suicidal thoughts Homicidal Thoughts: denies homicidal thoughts Hallucinations: no auditory hallucinations and no visual hallucinations Cognition: recent memory grossly intact and language grossly intact; + attention not intact Insight: + impaired insight Judgement: + impaired judgement Vital Signs (Past 24 Hours) Last Vital Signs Temp 36.6 C 03/02/19 06:00 Pulse 108 H 03/02/19 06:28 Resp 17 03/02/19 06:00 BP 113/78 03/02/19 06:28 Pulse Ox 96 02/17/19 01:23 Results & Data Laboratory Results Laboratory Results - last 24 hr 03/02/19 07:39 PT Pending INR Pending Current Inpatient Medications Current Inpatient Medications: Current Inpatient Medications Acetaminophen (Tylenol) 650 mg PO Q4H PRN PRN Reason: Headache or Minor Fever Stop: 03/19/19 01:15 Al Hydrox/Mg Hydrox/Simethicone (Maalox) 30 ml PO Q4H PRN PRN Reason: GI Upset Stop: 03/19/19 01:15 Last Admin: 02/17/19 08:47 Dose: 30 ml Documented by: Bismuth Subsalicylate (Kaopectate) 15 ml PO PRN PRN PRN Reason: Loose Stool Stop: 03/19/19 01:15 Magnesium Hydroxide (Milk Of Magnesia) 30 ml PO DAILY PRN PRN Reason: Heartburn Stop: 03/19/19 01:15 Quetiapine Fumarate (Seroquel) 100 mg PO HS PRN PRN Reason: insomnia Stop: 03/31/19 21:59 Sertraline HCl (Zoloft) [facility] [place] Stop: 04/01/19 08:59 Simvastatin (Zocor) 40 mg PO HS [facility] Stop: 03/19/19 21:59 Last Admin: 03/01/19 21:17 Dose: 40 mg Documented by: Sodium Chloride (Catron Nasal) 1 - 2 sprays NA PRN PRN PRN Reason: Nasal Dryness/Congestion Stop: 03/19/19 01:15 Warfarin Sodium (Coumadin) 5 mg PO [id number] [facility] Stop: 03/30/19 15:59 Last Admin: 02/28/19 15:45 Dose: 5 mg Documented by: Warfarin Sodium (Coumadin) 10 mg PO [id number]@1600 [facility] Stop: 03/31/19 15:59 Last Admin: 03/01/19 15:56 Dose: 10 mg Documented by: Mental Health & Subst Abuse Tx Psychiatrist Name of Psychiatrist: [facility] - Dr. Harrington Psychiatrist's Date of Appointment with Psychiatrist: 03/22/19 Time of Appointment with Psychiatrist: 2:30 pm Psychiatric Appointment Comment: [address], [place], [place] Therapist Name of Therapist: MORGAN? Dena? Outbound Telemarketing Representative Name of Outbound Telemarketing Representative: [facility] Phone Number for Outbound Telemarketing Representative: [phone] Case Management Appointment Comment: [address], [address], [place] Post Discharge Appointments Primary Care Physician Name Of Family Doctor: RUBIO - Dr. [facility] Date of Appointment with PCP: 03/09/19 Time of Appointment with PCP: 12pm Provider Appointment Comment: [address] [place] [address] [place] [address] Contact Information Discharge Discharge Address: [address] [place] [address] [address] [place] [address] CPT Code CPT Code 17464 (1) Depression Active/Remission status: currently active Depression Type: major depressive disorder Major depression episode severity: severe Major depression recurrence: recurrent Psychotic features: with psychotic features Qualified Code(s): F33.3 - Major depressive disorder, recurrent, severe with psychotic symptoms
[2019-03-02 08:27] LABS: INR 2.1 (0.9-1.1)
[2019-03-02] MEDS: SERTRALINE HCL 100 MG TABLET PO SCH (08:49)
[2019-03-02] MEDS ORDERED: TRAZODONE HCL 50 MG TAB PO PRN (11:19)
[2019-03-02] MEDS: WARFARIN SOD 5 MG TAB PO SCH (15:34)
[2019-03-02] MEDS: TRAZODONE HCL 50 MG TAB PO SCH (21:31)
[2019-03-02] MEDS: SIMVASTATIN 40 MG TAB PO SCH (21:32)
[2019-03-02] MEDS: MINOCYCLINE 100 MG PO SCH (21:33)
[2019-03-03] MEDS: MINOCYCLINE 100 MG PO SCH (07:47)
[2019-03-03] MEDS: SERTRALINE HCL 100 MG TABLET PO SCH (07:47)
--- NOTE | 2019-03-03 10:18 | Psychiatric Progress Note ---
Date of Service March 03, 2019 Impression / Recommendations Impression 58-year-old single male with a history of severe recurrent depression with psychosis, anxiety NOS, PE/DVT on Coumadin, and noncompliance with mental health treatment who is admitted voluntarily after a suicide attempt by overdose on an unknown [id number]-[id number] sleeping medication (possibly diphenhydramine or melatonin, as acetaminophen level was negative). He has a history of a previous suicide attempt by overdose, and severe psychotic depression with multiple past hospitalizations, 2 courses of ECT, and noncompliance with outpatient treatment, which led to an involuntary outpatient commitment during his last psychiatric hospitalization here in 2015. He then dropped out of treatment after his commitment . He remains severely depressed, ruminative, and isolating in his room, and initially would not agree to a family meeting, appropriate doses of medications, referrals for outpatient treatment or appropriate medication adjustments, with circular reasoning about why he does not need it (he feels better, he will need it, but nothing helps him to feel better), so a 304 commitment hearing was scheduled, and was granted today. He is intermittently refusing medication, initially sertraline, and then quetiapine, due to delusional beliefs that they caused acne. He remains depressed and hopeless, with psychotic rumination and circular reasoning. He is very slowly improving, has agreed to referrals for outpatient treatment and a family meeting with his friends, but remains unwilling to take the antidepressant and antipsychotic at doses that were previously effective, which decreases his chances of recovery. He remains at risk of , disability, or serious injury as a result of his psychiatric conditions, and inpatient treatment is least restrictive level of care. We will continue to encourage him to engage fully in treatment, except effective doses of medications, and work on discharge planning. In the past, he complied with outpatient treatment while on an involuntary outpatient commitment, but stopped medications and stopped attending appointments as soon as it lapsed, so we will again pursue this at discharge as a way to keep him stable and in treatment and decrease his risk of suicide, which is high without appropriate treatment. (1) Intentional overdose of drug in tablet form: 02/17 - Patient reports intentional overdose on an unknown [id number] sleep medication, is likely diphenhydramine or melatonin based on lack of an elevated acetaminophen level on his toxicology screen. -It would be helpful to identify a friend or family to go to his apartment and retrieve the medication, as well as any other medications in order to limit his access to large amounts of medications, given his history of at least 2 serious overdoses. -Ideally the patient's access to his Coumadin would be restricted, again due to the risk in overdose, but he lives alone and our ability to secure that medication after discharge may be limited. -Encourage group attendance and participation, work on healthy coping skills and a discharge safety plan. 02/18 - Suicidality and hopelessness is ongoing - "like the same as it was" 02/21 - SI and hopelessness ongoing. 02/24 - hopelessness continues, but slight improvement, and willing to work toward a plan for discharge on an involuntary outpatient commitment next week. He indicates that he is looking forward to starting a [employer] soon. 02/26 - hopelessness and suicidality have again worsened, and he is unable to contract for safety outside of the hospital. 03/01 -patient denies active suicidal ideation, but endorses ongoing depression, severe anxiety, negative ruminations, and has not been noncompliant with medication, so remains at high risk for decompensation with return of suicidal thoughts and a suicide attempt if discharged prematurely. (2) Depression: 02/17 -patient presents with severe depression and psychotic features. Ca nnot rule out a delusional disorder with respect to his chronically expressed belief that his life is doomed because he received the "bad feminine genes," while his brothers received the "good genes," who have had good health and lives. -Previous good response to quetiapine and sertraline, and the patient agrees to resume these medications to target mood, anxiety, sleep, and ruminations/delusions. -Start sertraline 50 mg daily and quetiapine 50 mg at bedtime with a repeat dose x1 as needed for sleep. We will titrate to previously effective doses of 200 mg every morning and 200 mg at bedtime, respectively. -Fasting lipid profile and glucose ordered for tomorrow morning for monitoring on an atypical antipsychotic. -Recommend family meeting with friend Luis Felipe and/or brothers. -Patient will need to be referred for outpatient services, including psychiatric care, therapy, and case management. Coordinate with the [facility] service [facility] regarding his past treatment, specifically to clarify if he dropped out of treatment after his IOC , as this may argue toward the need for another IOC. -Explore ways to increase his supports in the community. 02/18 - Reviewed recommendation to continue titration of sertraline and quetiapine - patient only willing to increase one medication at this time, and chose quetiapine. - Will increase quetiapine to 100mg this evening; continue sertraline at 50mg for now with ongoing titration of both as tolerated - Fasting labs reviewed - glucose elevated at 116; lipid panel WNL - Family meeting with brother scheduled for tomorrow - Continue to explore aftercare/discharge planning 02/19 --slept better following increase in Seroquel, he is refusing additional titration today. 02/20 --titrate Zoloft to 100 mg, patient agreed. 02/21 - Patient refused sertraline this AM due to severe depression and not wanting to have to take meds. Continue to educate and offer medication, continue 302 and meds over objection if continues to refuse treatment. Encourage him to be out of his room and to attend groups. -Continue sertraline 100 mg at bedtime; he has refused further titration, but previously did well on 200 mg at bedtime. Sleep is improving. -Patient refused a family meeting, and we will continue to discuss and explore this with him, as he would clearly benefit from increased outpatient supports and socialization. 02/22 - Pt took sertraline 100mg this AM, but continues to refuse recommendation for continued titration of medications to previously stabilizing doses - and unable to provide rational reasoning for his refusal - Will order 150mg of quetiapine for this evening, and 150mg of sertraline for tomorrow morning - patient was informed of this change being made. If refusal, patient can be offered his previous doses of 100mg of each of the above medications - Will consider possible need to pursue involuntary inpatient commitment, as patient's behavior is not conducive with his current voluntary status and he is making not improvements - Continue to encourage a family meeting prior to discharge 02/23 -Medications increased as above. File for 304 involuntary commitment. Discussed this with patient, including that we may need to refer him for long- term inpatient treatment if he remains unwilling to fully engage in treatment and work on discharge planning. 02/24 -Continue current medications and continue to discuss increase to 200 mg sertraline, which today the patient declined. -Recommend involving his supports and a family meeting prior to discharge. Refer for outpatient treatment. 304 hearing 03/02/2019. 02/25 - Continue current medication regimen; he continues to decline previously stabilizing doses of quetiapine and sertraline (200mg each) - Continue to recommend involvement of family and willingness for additional outpatient support 02/26 -Patient refused sertraline yesterday, and initially refused it this morning, but then agreed to take a partial dose (100 mg). He initially stated he thought it was causing acne, but now says he was mistaken and it must be another medication. Encouraged him to take the full prescribed dose, and to allow us to titrate it to the previously effective dose of 200 mg daily. He is so focused on his negative ruminations that he is unable to fully engage in the interview. Continue to encourage him to allow titration of his medications to fully address his symptoms. -Patient reporting acne on his back and chest, which on exam is minimal. He reports previous good response to topical antibiotic, contacted pharmacy regarding what is available on formulary and am awaiting a call back. 02/27 - Patient now refusing quetiapine, believing it is causing acne breakout, although no acne visible. Offered Adapalene or Differen which could be brought in from OP pharmacy, and he declines. - Continue sertraline and increase to 200 mg daily for tomorrow to target depression. As patient refusing to take quetiapine, discussed alternative medications for augmentation and psychosis, and he agreed to a trial of aripiprazole. Reviewed risks and side effects. Start 5 mg daily. 02/28 - Continue current medication regimen; 200mg of sertraline and 5mg of a ripiprazole - Continue to provide education on current medications to motivate patient toward compliance 03/01 - Aripiprazole not affordable. Recommend return to quetiapine 150mg HS, as patient refusing 200mg dose (which was previously effective for him for psychotic anxious depression). He is refusing this as he thinks it caused him to break out. He did agree to revisit this discussion if he is not improving on an SSRI alone, as that is all he will agree to take right now. For now, I have ordered quetiapine 100 mg at bedtime as needed. - Patient will only agree to sertraline 150mg and will not take a higher dose, although he previously did well on 200mg and tolerated it well. Will therefore order 150mg dose, but advised him that we will need to continue to assess his response and that he may need a higher dose. - He is refusing a family meeting with his brothers, saying they won't talk to him any more, but agrees to a meeting with friends Josias and Rafiq. 03/02 -304 involuntary commitment granted. Plan to transition to an involuntary outpatient commitment at the time of discharge. -Patient remains unwilling to take an atypical antipsychotic, and will only take 150 mg of sertraline. He is reporting poor sleep and agrees to a trial of trazodone, ordered 50 mg at bedtime with a repeat dose if needed. Reviewed risks, benefits, and side effects. 03/13 -Patient refused trazodone last night, but reports better sleep as his roommate, who snores, slept in another room. Continue to offer it if needed. -Continue sertraline 150 mg daily as he refuses a higher dose. Scheduled family meeting with friend. Mood slightly improved. (3) Anxiety: 02/17 -patient endorses obsessional ruminations, but no compulsions, as well as some COSME symptoms. Has been diagnosed with anxiety NOS in the past. Previously responded well to sertraline, resume as above. -Hydroxyzine as needed for sleep and anxiety. -Work on healthy ways to cope with anxiety, and refer for outpatient therapy. (4) Anticoagulant long-term use: 02/17 -INR is typically stable in the 2-3 range, but has trended up over the past month, was 3.1 on 01/17/2019, 4.0 on 02/05/2019, and 4.5 in the ER yesterday. Rechecked this morning after discussing with Dr. Loyola, and it remains supratherapeutic at 4.5. Per her recommendations, will hold Coumadin and check daily PT and INR, and if it rises above 4.5, will treat with 5 mg of vitamin K p.o. She can be contacted for further recommendations if needed. 02/18 - Appreciate recommendations from Anticoagulation Clinic - Will continue daily PT and INR; improved today to 29.5 and 3.1 respectively - Recommendations are to resume home schedule starting this evening (5mg daily each day exception Thursday, when he receives 10mg - 65mg weekly total) - Additional recommendations available in Consultation note 02/21 -INR was 2.6 and 2.9 the last 2 days, and today is 3.3. Continue with daily INRs and adjust Coumadin as needed. 02/22 - Psychiatrist reviewed with Dr. Loyola as INR 4.1 today. She recommended holding Coumadin today, resume tomorrow at lower dose of 5mg daily Antoine and W, and 10mg on , , , , Sa. Continue daily INRs. 02/23 -Resume Coumadin at lower dose as above, continue daily INR 02/24 -INR 3.3 yesterday, and 2.1 today. Continue Coumadin with daily labs. 02/25 - INR remains 2.1 today; continue daily labs 02/26 -INR 2.7. 02/27 -INR 3.4 -Coumadin held. 02/28 - INR 2.9. Coumadin restarted and dose decreased to 5 mg Thursday, Thursday, and Thursday; and 10 mg Thursday, Thursday, , and Thursday. 03/02 -INR 2.1. Inventory Assets Strengths: Compliance with medical appts, stable housing, supportive family Needs: Noncompliance with OP treatment, lack of supports Risk Factors Assessment Male: Yes : Yes Do You Have Access To A Gun?: No Health Problems: Yes Mental Health Diagnoses: Yes Substance Use Disorders: No Previous Attempt: Yes Family History of Suicide: No Previous Psychiatric Hospitalization: Yes Hopelessness: Yes Smoker: No Protective Factors Assessment Worship Beliefs: No : No Responsible for Young Children: No Employed: No Stable Relationships: No Supportive Family: Yes Good Rapport with Provider: No Interval History Identifying Information YINKA ROMERO is a 58-year-old M who currently lives in an [place] alone, has a history of recurrent, severe depression with psychosis, anxiety NOS, and history of DVT/PE on chronic anticoagulation, and was admitted on 02/17/19 00:37 on a 201 voluntary commitment for depression and suicidality, after an overdose on approximately 25 tabs of an unknown qrjt-jzv-sxrqvif sleep medication. Chief Complaint "Ok, I didn't take that med". Review of Systems Sleep Information Total Hours of Sleep: 6.5 Sleep Comments: came out of room and began to walk laps at 0540. patient pleasant and talkative with staff. Meal Information Percent Meal Consumed - Breakfast: 100 Percent Meal Consumed - Lunch: 100 Percent Meal Consumed - Dinner: 100 Nutrition Comment: per meal record Subjective Subjective Patient was seen & assessed and interval progress reviewed with nursing and social work. Staff report he declined his HS meds (trazodone and simvastatin) because he was worried they were causing side effects (although has not yet had trazodone). On my assessment, he says he thinks staff are mad at him for not getting better and refusing medications. He reports mood is slightly improved today, which he attributes to sleeping better last night (snoring roommate slept in another room last night). He is going to some groups, and says it's helpful to "listen to other people, but my stuff is more physical, physical is harder to get over than mental." He says his "physical problems as I get older, they work on you, you know?" He was able to get his minocycline last night as his friend brought it in. He wants to know if there's a "less potent" medication for depression, although denies clear side effects to sertraline. He thinks his skin is improving. Physical Exam Psychiatric Orientation: alert, oriented x 3 and cooperative Apperance: appropriately dressed, appropriately groomed and appeared stated age Eye Contact: + fair eye contact Motor Behavior: steady gait and station and no abnormal motor movements Speech: normal rate/rhythm/volume of speech (slightly loud at times) Affect: + depressed affect (but slightly more reactive) and + anxious affect Mood: + depressed mood and + anxious mood but slightly better Thought Process: + perseveration Thought Content: + preoccupation, + cognitive distortions, + worthlessness, + guilt and + self deprecation Suicidal Thoughts: denies suicidal thoughts Homicidal Thoughts: denies homicidal thoughts Hallucinations: no auditory hallucinations and no visual hallucinations Cognition: recent memory grossly intact, attention grossly intact and language grossly intact Insight: + impaired insight Judgement: + impaired judgement Vital Signs (Past 24 Hours) Last Vital Signs Temp 36.9 C 03/03/19 06:00 Pulse 89 03/03/19 06:43 Resp 18 03/03/19 06:00 BP 118/83 03/03/19 06:43 Pulse Ox 96 02/17/19 01:23 Results & Data Current Inpatient Medications Current Inpatient Medications: Current Inpatient Medications Acetaminophen (Tylenol) 650 mg PO Q4H PRN PRN Reason: Headache or Minor Fever Stop: 03/19/19 01:15 Al Hydrox/Mg Hydrox/Simethicone (Maalox) 30 ml PO Q4H PRN PRN Reason: GI Upset Stop: 03/19/19 01:15 Last Admin: 02/17/19 08:47 Dose: 30 ml Documented by: Bismuth Subsalicylate (Kaopectate) 15 ml PO PRN PRN PRN Reason: Loose Stool Stop: 03/19/19 01:15 Magnesium Hydroxide (Milk Of Magnesia) 30 ml PO DAILY PRN PRN Reason: Heartburn Stop: 03/19/19 01:15 Minocycline 100mg Capsule~Non- Formulary Patient's Own Med 1 ea PO DAILY SETH Stop: 04/02/19 08:59 Last Admin: 03/03/19 07:47 Dose: 1 cap Documented by: Quetiapine Fumarate (Seroquel) 100 mg PO HS PRN PRN Reason: insomnia Stop: 03/31/19 21:59 Sertraline HCl (Zoloft) [facility] [place]: 04/01/19 08:59 Last Admin: 03/03/19 07:47 Dose: 150 mg Documented by: Simvastatin (Zocor) 40 mg PO HS [facility] Stop: 03/19/19 21:59 Last Admin: 03/02/19 21:32 Dose: Not Given Documented by: Sodium Chloride ([place] Nasal) 1 - 2 sprays NA PRN PRN PRN Reason: Nasal Dryness/Congestion Stop: 03/19/19 01:15 Trazodone HCl (Desyrel) 50 mg PO HS [facility] Stop: 04/01/19 21:59 Last Admin: 03/02/19 21:31 Dose: Not Given Documented by: Warfarin Sodium (Coumadin) 5 mg PO [id number] [facility] Stop: 03/30/19 15:59 Last Admin: 03/02/19 15:34 Dose: 5 mg Documented by: Warfarin Sodium (Coumadin) 10 mg PO [id number] [facility] Stop: 03/31/19 15:59 Last Admin: 03/01/19 15:56 Dose: 10 mg Documented by: Mental Health & Subst Abuse Tx Psychiatrist Name of Psychiatrist: [facility] - Dr. Harrington Psychiatrist's Date of Appointment with Psychiatrist: 03/22/19 Time of Appointment with Psychiatrist: 2:30 pm Psychiatric Appointment Comment: [address], [facility] [address], [place], [place] Therapist Name of Therapist: MORGAN? Dena? History Tutor Name of History Tutor: [facility] Phone Number for History Tutor: [phone] Case Management Appointment Comment: [address] [facility], [address], [place] Post Discharge Appointments Primary Care Physician Name Of Family Doctor: [facility] Date of Appointment with PCP: 03/09/19 Time of Appointment with PCP: 12pm Provider Appointment Comment: [address] [place] [address] [place] [address] Contact Information Discharge Discharge Address: [address] [place], [place] [id number] CPT Code CPT Code 81689 (1) Depression Depression Type: major depressive disorder Major depression recurrence: recurrent Active/Remission status: currently active Major depression episode severity: severe Psychotic features: with psychotic features Qualified Code(s): F33.3 - Major depressive disorder, recurrent, severe with psychotic symptoms
[2019-03-03] MEDS: WARFARIN SOD 10 MG TAB PO SCH (16:55)
[2019-03-03] MEDS: SIMVASTATIN 40 MG TAB PO SCH (21:25)
[2019-03-03] MEDS: TRAZODONE HCL 50 MG TAB PO SCH (21:26)
[2019-03-04] MEDS: SERTRALINE HCL 100 MG TABLET PO SCH (07:43)
[2019-03-04] MEDS: MINOCYCLINE 100 MG PO SCH (07:43)
[2019-03-04 08:32] LABS: INR 1.9 (0.9-1.1); Prothrombin Time 18.3 Seconds (9.0-12.0)
--- NOTE | 2019-03-04 09:29 | Psychiatric Progress Note ---
Date of Service March 04, 2019 Impression / Recommendations Impression 58-year-old single male with a history of severe recurrent depression with psychosis, anxiety NOS, PE/DVT on Coumadin, and noncompliance with mental health treatment who is admitted voluntarily after a suicide attempt by overdose on an unknown [id number]-[id number] sleeping medication (possibly diphenhydramine or melatonin, as acetaminophen level was negative). He has a history of a previous suicide attempt by overdose, and severe psychotic depression with multiple past hospitalizations, 2 courses of ECT, and noncompliance with outpatient treatment, which led to an involuntary outpatient commitment during his last psychiatric hospitalization here in 2015. He then dropped out of treatment after his commitment . He remains severely depressed, ruminative, and isolating in his room, and initially would not agree to a family meeting, appropriate doses of medications, referrals for outpatient treatment or appropriate medication adjustments, with circular reasoning about why he does not need it (he feels better, he will need it, but nothing helps him to feel better), so a 304 commitment hearing was scheduled, and was granted today. He is intermittently refusing medication, initially sertraline, and then quetiapine, due to delusional beliefs that they caused acne. He remains depressed and hopeless, with psychotic rumination and circular reasoning. He is very slowly improving, has agreed to referrals for outpatient treatment and a family meeting with his friends, but remains unwilling to take the antidepressant and antipsychotic at doses that were previously effective, which decreases his chances of recovery. He remains at risk of , disability, or serious injury as a result of his psychiatric conditions, and inpatient treatment is least restrictive level of care. We will continue to encourage him to engage fully in treatment, except effective doses of medications, and work on discharge planning. In the past, he complied with outpatient treatment while on an involuntary outpatient commitment, but stopped medications and stopped attending appointments as soon as it lapsed, so we will again pursue this at discharge as a way to keep him stable and in treatment and decrease his risk of suicide, which is high without appropriate treatment. (1) Intentional overdose of drug in tablet form: 02/17 - Patient reports intentional overdose on an unknown smoo-rsj-rdrdwaf sleep medication, is likely diphenhydramine or melatonin based on lack of an elevated acetaminophen level on his toxicology screen. -It would be helpful to identify a friend or family to go to his apartment and retrieve the medication, as well as any other medications in order to limit his access to large amounts of medications, given his history of at least 2 serious overdoses. -Ideally the patient's access to his Coumadin would be restricted, again due to the risk in overdose, but he lives alone and our ability to secure that medication after discharge may be limited. -Encourage group attendance and participation, work on healthy coping skills and a discharge safety plan. 02/18 - Suicidality and hopelessness is ongoing - "like the same as it was" 02/21 - SI and hopelessness ongoing. 02/24 - hopelessness continues, but slight improvement, and willing to work toward a plan for discharge on an involuntary outpatient commitment next week. He indicates that he is looking forward to starting a [employer] soon. 02/26 - hopelessness and suicidality have again worsened, and he is unable to contract for safety outside of the hospital. 03/01 -patient denies active suicidal ideation, but endorses ongoing depression, severe anxiety, negative ruminations, and has not been noncompliant with medication, so remains at high risk for decompensation with return of suicidal thoughts and a suicide attempt if discharged prematurely. (2) Depression: 02/17 -patient presents with severe depression and psychotic features. Ca nnot rule out a delusional disorder with respect to his chronically expressed belief that his life is doomed because he received the "bad feminine genes," while his brothers received the "good genes," who have had good health and lives. -Previous good response to quetiapine and sertraline, and the patient agrees to resume these medications to target mood, anxiety, sleep, and ruminations/delusions. -Start sertraline 50 mg daily and quetiapine 50 mg at bedtime with a repeat dose x1 as needed for sleep. We will titrate to previously effective doses of 200 mg every morning and 200 mg at bedtime, respectively. -Fasting lipid profile and glucose ordered for tomorrow morning for monitoring on an atypical antipsychotic. -Recommend family meeting with friend Luis Felipe and/or brothers. -Patient will need to be referred for outpatient services, including psychiatric care, therapy, and case management. Coordinate with the base service unit regarding his past treatment, specifically to clarify if he dropped out of treatment after his IOC , as this may argue toward the need for another IOC. -Explore ways to increase his supports in the community. 02/18 - Reviewed recommendation to continue titration of sertraline and quetiapine - patient only willing to increase one medication at this time, and chose quetiapine. - Will increase quetiapine to 100mg this evening; continue sertraline at 50mg for now with ongoing titration of both as tolerated - Fasting labs reviewed - glucose elevated at 116; lipid panel WNL - Family meeting with brother scheduled for tomorrow - Continue to explore aftercare/discharge planning 02/19 --slept better following increase in Seroquel, he is refusing additional titration today. 02/20 --titrate Zoloft to 100 mg, patient agreed. 02/21 - Patient refused sertraline this AM due to severe depression and not wanting to have to take meds. Continue to educate and offer medication, continue 302 and meds over objection if continues to refuse treatment. Encourage him to be out of his room and to attend groups. -Continue sertraline 100 mg at bedtime; he has refused further titration, but previously did well on 200 mg at bedtime. Sleep is improving. -Patient refused a family meeting, and we will continue to discuss and explore this with him, as he would clearly benefit from increased outpatient supports and socialization. 02/22 - Pt took sertraline 100mg this AM, but continues to refuse recommendation for continued titration of medications to previously stabilizing doses - and unable to provide rational reasoning for his refusal - Will order 150mg of quetiapine for this evening, and 150mg of sertraline for tomorrow morning - patient was informed of this change being made. If refusal, patient can be offered his previous doses of 100mg of each of the above medications - Will consider possible need to pursue involuntary inpatient commitment, as patient's behavior is not conducive with his current voluntary status and he is making not improvements - Continue to encourage a family meeting prior to discharge 02/23 -Medications increased as above. File for 304 involuntary commitment. Discussed this with patient, including that we may need to refer him for long- term inpatient treatment if he remains unwilling to fully engage in treatment and work on discharge planning. 02/24 -Continue current medications and continue to discuss increase to 200 mg sertraline, which today the patient declined. -Recommend involving his supports and a family meeting prior to discharge. Refer for outpatient treatment. 304 hearing 03/02/2019. 02/25 - Continue current medication regimen; he continues to decline previously stabilizing doses of quetiapine and sertraline (200mg each) - Continue to recommend involvement of family and willingness for additional outpatient support 02/26 -Patient refused sertraline yesterday, and initially refused it this morning, but then agreed to take a partial dose (100 mg). He initially stated he thought it was causing acne, but now says he was mistaken and it must be another medication. Encouraged him to take the full prescribed dose, and to allow us to titrate it to the previously effective dose of 200 mg daily. He is so focused on his negative ruminations that he is unable to fully engage in the interview. Continue to encourage him to allow titration of his medications to fully address his symptoms. -Patient reporting acne on his back and chest, which on exam is minimal. He reports previous good response to topical antibiotic, contacted pharmacy regarding what is available on formulary and am awaiting a call back. 02/27 - Patient now refusing quetiapine, believing it is causing acne breakout, although no acne visible. Offered Adapalene or Differen which could be brought in from OP pharmacy, and he declines. - Continue sertraline and increase to 200 mg daily for tomorrow to target depression. As patient refusing to take quetiapine, discussed alternative medications for augmentation and psychosis, and he agreed to a trial of aripiprazole. Reviewed risks and side effects. Start 5 mg daily. 02/28 - Continue current medication regimen; 200mg of sertraline and 5mg of a ripiprazole - Continue to provide education on current medications to motivate patient toward compliance 03/01 - Aripiprazole not affordable. Recommend return to quetiapine 150mg HS, as patient refusing 200mg dose (which was previously effective for him for psychotic anxious depression). He is refusing this as he thinks it caused him to break out. He did agree to revisit this discussion if he is not improving on an SSRI alone, as that is all he will agree to take right now. For now, I have ordered quetiapine 100 mg at bedtime as needed. - Patient will only agree to sertraline 150mg and will not take a higher dose, although he previously did well on 200mg and tolerated it well. Will therefore order 150mg dose, but advised him that we will need to continue to assess his response and that he may need a higher dose. - He is refusing a family meeting with his brothers, saying they won't talk to him any more, but agrees to a meeting with friends Josias and Rafiq. 03/02 -304 involuntary commitment granted. Plan to transition to an involuntary outpatient commitment at the time of discharge. -Patient remains unwilling to take an atypical antipsychotic, and will only take 150 mg of sertraline. He is reporting poor sleep and agrees to a trial of trazodone, ordered 50 mg at bedtime with a repeat dose if needed. Reviewed risks, benefits, and side effects. 03/03 -Patient refused trazodone last night, but reports better sleep as his roommate, who snores, slept in another room. Continue to offer it if needed. -Continue sertraline 150 mg daily as he refuses a higher dose. Scheduled family meeting with friend. Mood slightly improved. 03/04 - Continue as above, patient continues to refuse trazodone offered for sleep, but is compliant with sertraline 150mg daily - Continue to encourage patient, he is more active in the milieu and participates appropriately in groups (3) Anxiety: 02/17 -patient endorses obsessional ruminations, but no compulsions, as well as some COSME symptoms. Has been diagnosed with anxiety NOS in the past. Previously responded well to sertraline, resume as above. -Hydroxyzine as needed for sleep and anxiety. -Work on healthy ways to cope with anxiety, and refer for outpatient therapy. 03/04 - Reporting some improvement in anxiety today (4) Anticoagulant long-term use: 02/17 -INR is typically stable in the 2-3 range, but has trended up over the past month, was 3.1 on 01/17/2019, 4.0 on 02/05/2019, and 4.5 in the ER yesterday. Rechecked this morning after discussing with Dr. Loyola, and it remains supratherapeutic at 4.5. Per her recommendations, will hold Coumadin and check daily PT and INR, and if it rises above 4.5, will treat with 5 mg of vitamin K p.o. She can be contacted for further recommendations if needed. 02/18 - Appreciate recommendations from Anticoagulation Clinic - Will continue daily PT and INR; improved today to 29.5 and 3.1 respectively - Recommendations are to resume home schedule starting this evening (5mg daily each day exception Thursday, when he receives 10mg - 65mg weekly total) - Additional recommendations available in Consultation note 02/21 -INR was 2.6 and 2.9 the last 2 days, and today is 3.3. Continue with daily INRs and adjust Coumadin as needed. 02/22 - Psychiatrist reviewed with Dr. Loyola as INR 4.1 today. She recommended holding Coumadin today, resume tomorrow at lower dose of 5mg daily Antoine and W, and 10mg on , , , , . Continue daily INRs. 02/23 -Resume Coumadin at lower dose as above, continue daily INR 02/24 -INR 3.3 yesterday, and 2.1 today. Continue Coumadin with daily labs. 02/25 - INR remains 2.1 today; continue daily labs 02/26 -INR 2.7. 02/27 -INR 3.4 -Coumadin held. 02/28 - INR 2.9. Coumadin restarted and dose decreased to 5 mg Thursday, Thursday, and Thursday; and 10 mg Thursday, Thursday, , and Thursday. 03/02 -INR 2.1. 03/04 - INR 1.9 Inventory Assets Strengths: Compliance with medical appts, stable housing, supportive family Needs: Noncompliance with OP treatment, lack of supports Risk Factors Assessment Male: Yes : Yes Do You Have Access To A Gun?: No Health Problems: Yes Mental Health Diagnoses: Yes Substance Use Disorders: No Previous Attempt: Yes Family History of Suicide: No Previous Psychiatric Hospitalization: Yes Hopelessness: Yes Smoker: No Protective Factors Assessment Jew Beliefs: No : No Responsible for Young Children: No Employed: No Stable Relationships: No Supportive Family: Yes Good Rapport with Provider: No Interval History Identifying Information YINKA ROMERO is a 58-year-old M who currently lives in an [place] alone, has a history of recurrent, severe depression with psychosis, anxiety NOS, and history of DVT/PE on chronic anticoagulation, and was admitted on 02/17/19 00:37 initially on a 201 voluntary commitment for depression and suicidality, after an overdose on approximately 25 tabs of an unknown lwfr-gqz-wecukqa sleep medication. Pt is on a 304 involuntary inpatient commitment as of 03/02/19 - with plan to convert to an involuntary outpatient commitment on discharge. Chief Complaint "Yeah, we can talk. I gotta get away from [place]ito." Review of Systems Notes Constitutional: denied Cardiovascular: denied Respiratory: denied Gastrointestinal: denied Neurological: denied Psychiatric: denies symptoms other than stated above Total of at least 10 systems reviewed, pertinent positives as above and in HPI. Sleep Information Total Hours of Sleep: 5.75 Sleep Comments: awake at 0015( in bed ) and 0210 ( came out to the day area for a pillow he left on the couch ) Meal Information Percent Meal Consumed - Breakfast: 100 Percent Meal Consumed - Lunch: 100 Percent Meal Consumed - Dinner: 100 Nutrition Comment: per meal record Subjective Subjective Patient was seen & assessed and interval progress reviewed with treatment team. Staff reports the patient has been showing some improvements. 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 Pt rated his mood a 5/10 and "better" last evening. Patient was seen today to assess progress since admission. Pt states he is doing well, agreeable to talking. Prior to our conversation, the patient was observed to be dancing and displaying a bright affect - [place] was on the radio. Pt states he "gotta get away", and continues to demonstrate a bright and cheerful affect as he shares with this provider his side of conspiracy theories related to [place]ito' . Pt reports feeling improved and was asked his thoughts on his ability to function independently outside of the hospital. Pt states, "I think I can do it. I'd like to try anyway." He does have moments during our conversation where he continues to ruminate about past mistakes and "how stupid it was to come off the medication, I was doing so well." Pt was encouraged to continue to work on his progress, and was informed that he has been looking much improved. Patient denied SI/HI and other acute concerns today. Physical Exam Psychiatric Orientation: alert, oriented x 3 and cooperative Apperance: appropriately dressed, appropriately groomed and appeared stated age Eye Contact: + fair eye contact (Brief moments of direct eye contact, mostly stares at the floor) Motor Behavior: steady gait and station and no abnormal motor movements Speech: normal rate/rhythm/volume of speech Affect: + anxious affect (Though appearing much brighter today, easily directed away from ruminations) Mood: no depressed mood and no anxious mood "I am feeling pretty good, I think I can do it." Thought Process: goal directed thought process and clear/coherent thought process Thought Content: + cognitive distortions, + worthlessness (Improving slowly) and + self deprecation Suicidal Thoughts: denies suicidal thoughts Homicidal Thoughts: denies homicidal thoughts Hallucinations: no auditory hallucinations and no visual hallucinations Cognition: attention grossly intact and language grossly intact Insight: + impaired insight (Overall, however, patient seems to be showing some improvement) Judgement: + impaired judgement (Overall, however, patient seems to be showing some improvement) Vital Signs (Past 24 Hours) Last Vital Signs Temp 36.5 C 03/04/19 06:00 Pulse 82 03/04/19 06:52 Resp 16 03/04/19 06:00 BP 130/88 03/04/19 06:52 Pulse Ox 96 02/17/19 01:23 Results & Data Laboratory Results Laboratory Results - last 24 hr 03/04/19 08:06 PT 18.3 H INR 1.9 H Current Inpatient Medications Current Inpatient Medications: Current Inpatient Medications Acetaminophen (Tylenol) 650 mg PO Q4H PRN PRN Reason: Headache or Minor Fever Stop: 03/19/19 01:15 Al Hydrox/Mg Hydrox/Simethicone (Maalox) 30 ml PO Q4H PRN PRN Reason: GI Upset Stop: 03/19/19 01:15 Last Admin: 02/17/19 08:47 Dose: 30 ml Documented by: Bismuth Subsalicylate (Kaopectate) 15 ml PO PRN PRN PRN Reason: Loose Stool Stop: 03/19/19 01:15 Magnesium Hydroxide (Milk Of Magnesia) 30 ml PO DAILY PRN PRN Reason: Heartburn Stop: 03/19/19 01:15 Minocycline 100mg Capsule~Non- Formulary Patient's Own Med 1 ea PO DAILY SETH Stop: 04/02/19 08:59 Last Admin: 03/04/19 07:43 Dose: 1 cap Documented by: Quetiapine Fumarate (Seroquel) 100 mg PO HS PRN PRN Reason: insomnia Stop: 03/31/19 21:59 Sertraline HCl (Zoloft) 150 mg PO QAM SETH Stop: 04/01/19 08:59 Last Admin: 03/04/19 07:43 Dose: 150 mg Documented by: Simvastatin (Zocor) 40 mg PO HS [facility] Stop: 03/19/19 21:59 Last Admin: 03/03/19 21:25 Dose: 40 mg Documented by: Sodium Chloride ([place] Nasal) 1 - 2 sprays NA PRN PRN PRN Reason: Nasal Dryness/Congestion Stop: 03/19/19 01:15 Trazodone HCl (Desyrel) 50 mg PO [facility] Stop: 04/01/19 21:59 Last Admin: 03/03/19 21:26 Dose: Not Given Documented by: Warfarin Sodium (Coumadin) 5 mg PO [email or web address] [facility] Stop: 03/30/19 15:59 Last Admin: 03/02/19 15:34 Dose: 5 mg Documented by: Warfarin Sodium (Coumadin) 10 mg PO [email or web address] [facility] Stop: 03/31/19 15:59 Last Admin: 03/03/19 16:55 Dose: 10 mg Documented by: Mental Health & Subst Abuse Tx Psychiatrist Name of Psychiatrist: [facility] - Dr. Harrington Psychiatrist's Date of Appointment with Psychiatrist: 03/22/19 Time of Appointment with Psychiatrist: 2:30 pm Psychiatric Appointment Comment: [address] [place], [place] [address]ly [facility], [place], [place] Therapist Name of Therapist: Cynthia Menendez Date of Therapist Appointment: 03/10/19 Time of Therapist Appointment: 1pm Office Workforce Planner Name of Office Workforce Planner: [facility] Phone Number for Office Workforce Planner: [phone] Case Management Appointment Comment: [facility], [address], [place] Post Discharge Appointments Primary Care Physician Name Of Family Doctor: [facility] Date of Appointment with PCP: 03/09/19 Time of Appointment with PCP: 12pm Provider Appointment Comment: [address] [place] [address] [place] [address] Contact Information Discharge Discharge [address]: [address] [place] [address] CPT Code CPT Code 28746 (1) Depression Active/Remission status: currently active Depression Type: major depressive disorder Major depression episode severity: severe Major depression recurrence: recurrent Psychotic features: with psychotic features Qualified Code(s): F33.3 - Major depressive disorder, recurrent, severe with psychotic symptoms
[2019-03-04] MEDS: WARFARIN SOD 10 MG TAB PO SCH (15:41)
[2019-03-04] MEDS: TRAZODONE HCL 50 MG TAB PO SCH (22:15)
[2019-03-04] MEDS: SIMVASTATIN 40 MG TAB PO SCH (22:16)
[2019-03-05] MEDS: SERTRALINE HCL 100 MG TABLET PO SCH (08:05)
[2019-03-05] MEDS: MINOCYCLINE 100 MG PO SCH (08:05)
[2019-03-05] MEDS: WARFARIN SOD 10 MG TAB PO SCH (17:16)
--- NOTE | 2019-03-05 18:38 | Psychiatric Progress Note ---
Date of Service March 05, 2019 Impression / Recommendations Impression 58-year-old single male with a history of severe recurrent depression with psychosis, anxiety NOS, PE/DVT on Coumadin, and noncompliance with mental health treatment who is admitted voluntarily after a suicide attempt by overdose on an unknown hlyq-foe-srtfkqx sleeping medication (possibly diphenhydramine or melatonin, as acetaminophen level was negative). He has a history of a previous suicide attempt by overdose, and severe psychotic depression with multiple past hospitalizations, 2 courses of ECT, and noncompliance with outpatient treatment, which led to an involuntary outpatient commitment during his last psychiatric hospitalization here in 2015. He then dropped out of treatment after his commitment . He remains severely depressed, ruminative, and isolating in his room, and initially would not agree to a family meeting, appropriate doses of medications, referrals for outpatient treatment or appropriate medication adjustments, with circular reasoning about why he does not need it (he feels better, he will need it, but nothing helps him to feel better), so a 304 commitment hearing was scheduled, and was granted today. He is intermittently refusing medication, initially sertraline, and then quetiapine, due to delusional beliefs that they caused acne. He remains depressed and hopeless, with psychotic rumination and circular reasoning. He is very slowly improving, has agreed to referrals for outpatient treatment and a family meeting with his friends, but remains unwilling to take the antidepressant and antipsychotic at doses that were previously effective, which decreases his chances of recovery. He remains at risk of , disability, or serious injury as a result of his psychiatric conditions, and inpatient treatment is least restrictive level of care. We will continue to encourage him to engage fully in treatment, except effective doses of medications, and work on discharge planning. In the past, he complied with outpatient treatment while on an involuntary outpatient commitment, but stopped medications and stopped attending appointments as soon as it lapsed, so we will again pursue this at discharge as a way to keep him stable and in treatment and decrease his risk of suicide, which is high without appropriate treatment. (1) Intentional overdose of drug in tablet form: 02/17 - Patient reports intentional overdose on an unknown tjrd-unn-hnssbin sleep medication, is likely diphenhydramine or melatonin based on lack of an elevated acetaminophen level on his toxicology screen. -It would be helpful to identify a friend or family to go to his apartment and retrieve the medication, as well as any other medications in order to limit his access to large amounts of medications, given his history of at least 2 serious overdoses. -Ideally the patient's access to his Coumadin would be restricted, again due to the risk in overdose, but he lives alone and our ability to secure that medication after discharge may be limited. -Encourage group attendance and participation, work on healthy coping skills and a discharge safety plan. 02/18 - Suicidality and hopelessness is ongoing - "like the same as it was" 02/21 - SI and hopelessness ongoing. 02/24 - hopelessness continues, but slight improvement, and willing to work toward a plan for discharge on an involuntary outpatient commitment next week. He indicates that he is looking forward to starting a [employer] soon. 02/26 - hopelessness and suicidality have again worsened, and he is unable to contract for safety outside of the hospital. 03/01 -patient denies active suicidal ideation, but endorses ongoing depression, severe anxiety, negative ruminations, and has not been noncompliant with medication, so remains at high risk for decompensation with return of suicidal thoughts and a suicide attempt if discharged prematurely. (2) Depression: 02/17 -patient presents with severe depression and psychotic features. Ca nnot rule out a delusional disorder with respect to his chronically expressed belief that his life is doomed because he received the "bad feminine genes," while his brothers received the "good genes," who have had good health and lives. -Previous good response to quetiapine and sertraline, and the patient agrees to resume these medications to target mood, anxiety, sleep, and ruminations/delusions. -Start sertraline 50 mg daily and quetiapine 50 mg at bedtime with a repeat dose x1 as needed for sleep. We will titrate to previously effective doses of 200 mg every morning and 200 mg at bedtime, respectively. -Fasting lipid profile and glucose ordered for tomorrow morning for monitoring on an atypical antipsychotic. -Recommend family meeting with friend Luis Felipe and/or brothers. -Patient will need to be referred for outpatient services, including psychiatric care, therapy, and case management. Coordinate with the base service unit regarding his past treatment, specifically to clarify if he dropped out of treatment after his IOC , as this may argue toward the need for another IOC. -Explore ways to increase his supports in the community. 02/18 - Reviewed recommendation to continue titration of sertraline and quetiapine - patient only willing to increase one medication at this time, and chose quetiapine. - Will increase quetiapine to 100mg this evening; continue sertraline at 50mg for now with ongoing titration of both as tolerated - Fasting labs reviewed - glucose elevated at 116; lipid panel WNL - Family meeting with brother scheduled for tomorrow - Continue to explore aftercare/discharge planning 02/19 --slept better following increase in Seroquel, he is refusing additional titration today. 02/20 --titrate Zoloft to 100 mg, patient agreed. 02/21 - Patient refused sertraline this AM due to severe depression and not wanting to have to take meds. Continue to educate and offer medication, continue 302 and meds over objection if continues to refuse treatment. Encourage him to be out of his room and to attend groups. -Continue sertraline 100 mg at bedtime; he has refused further titration, but previously did well on 200 mg at bedtime. Sleep is improving. -Patient refused a family meeting, and we will continue to discuss and explore this with him, as he would clearly benefit from increased outpatient supports and socialization. 02/22 - Pt took sertraline 100mg this AM, but continues to refuse recommendation for continued titration of medications to previously stabilizing doses - and unable to provide rational reasoning for his refusal - Will order 150mg of quetiapine for this evening, and 150mg of sertraline for tomorrow morning - patient was informed of this change being made. If refusal, patient can be offered his previous doses of 100mg of each of the above medications - Will consider possible need to pursue involuntary inpatient commitment, as patient's behavior is not conducive with his current voluntary status and he is making not improvements - Continue to encourage a family meeting prior to discharge 02/23 -Medications increased as above. File for 304 involuntary commitment. Discussed this with patient, including that we may need to refer him for long- term inpatient treatment if he remains unwilling to fully engage in treatment and work on discharge planning. 02/24 -Continue current medications and continue to discuss increase to 200 mg sertraline, which today the patient declined. -Recommend involving his supports and a family meeting prior to discharge. Refer for outpatient treatment. 304 hearing 03/02/2019. 02/25 - Continue current medication regimen; he continues to decline previously stabilizing doses of quetiapine and sertraline (200mg each) - Continue to recommend involvement of family and willingness for additional outpatient support 02/26 -Patient refused sertraline yesterday, and initially refused it this morning, but then agreed to take a partial dose (100 mg). He initially stated he thought it was causing acne, but now says he was mistaken and it must be another medication. Encouraged him to take the full prescribed dose, and to allow us to titrate it to the previously effective dose of 200 mg daily. He is so focused on his negative ruminations that he is unable to fully engage in the interview. Continue to encourage him to allow titration of his medications to fully address his symptoms. -Patient reporting acne on his back and chest, which on exam is minimal. He reports previous good response to topical antibiotic, contacted pharmacy regarding what is available on formulary and am awaiting a call back. 02/27 - Patient now refusing quetiapine, believing it is causing acne breakout, although no acne visible. Offered Adapalene or Differen which could be brought in from OP pharmacy, and he declines. - Continue sertraline and increase to 200 mg daily for tomorrow to target depression. As patient refusing to take quetiapine, discussed alternative medications for augmentation and psychosis, and he agreed to a trial of aripiprazole. Reviewed risks and side effects. Start 5 mg daily. 02/28 - Continue current medication regimen; 200mg of sertraline and 5mg of a ripiprazole - Continue to provide education on current medications to motivate patient toward compliance 03/01 - Aripiprazole not affordable. Recommend return to quetiapine 150mg HS, as patient refusing 200mg dose (which was previously effective for him for psychotic anxious depression). He is refusing this as he thinks it caused him to break out. He did agree to revisit this discussion if he is not improving on an SSRI alone, as that is all he will agree to take right now. For now, I have ordered quetiapine 100 mg at bedtime as needed. - Patient will only agree to sertraline 150mg and will not take a higher dose, although he previously did well on 200mg and tolerated it well. Will therefore order 150mg dose, but advised him that we will need to continue to assess his response and that he may need a higher dose. - He is refusing a family meeting with his brothers, saying they won't talk to him any more, but agrees to a meeting with friends Josias and Rafiq. 03/02 -304 involuntary commitment granted. Plan to transition to an involuntary outpatient commitment at the time of discharge. -Patient remains unwilling to take an atypical antipsychotic, and will only take 150 mg of sertraline. He is reporting poor sleep and agrees to a trial of trazodone, ordered 50 mg at bedtime with a repeat dose if needed. Reviewed risks, benefits, and side effects. 03/03 -Patient refused trazodone last night, but reports better sleep as his roommate, who snores, slept in another room. Continue to offer it if needed. -Continue sertraline 150 mg daily as he refuses a higher dose. Scheduled family meeting with friend. Mood slightly improved. 03/04 - Continue as above, patient continues to refuse trazodone offered for sleep, but is compliant with sertraline 150mg daily - Continue to encourage patient, he is more active in the milieu and participates appropriately in groups 03/05 -Illness education provided regarding risk for relapse without adequate maintenance antidepressant treatment. He was also strongly encouraged to take his now as needed dose of Seroquel tonight as he may be appearing more obsessive today in absence of the medication (3) Anxiety: 02/17 -patient endorses obsessional ruminations, but no compulsions, as well as some COSME symptoms. Has been diagnosed with anxiety NOS in the past. Previously responded well to sertraline, resume as above. -Hydroxyzine as needed for sleep and anxiety. -Work on healthy ways to cope with anxiety, and refer for outpatient therapy. 03/04 - Reporting some improvement in anxiety today (4) Anticoagulant long-term use: 02/17 -INR is typically stable in the 2-3 range, but has trended up over the past month, was 3.1 on 01/17/2019, 4.0 on 02/05/2019, and 4.5 in the ER yesterday. Rechecked this morning after discussing with Dr. Loyola, and it remains supratherapeutic at 4.5. Per her recommendations, will hold Coumadin and check daily PT and INR, and if it rises above 4.5, will treat with 5 mg of vitamin K p.o. She can be contacted for further recommendations if needed. 02/18 - Appreciate recommendations from Anticoagulation Clinic - Will continue daily PT and INR; improved today to 29.5 and 3.1 respectively - Recommendations are to resume home schedule starting this evening (5mg daily each day exception Thursday, when he receives 10mg - 65mg weekly total) - Additional recommendations available in Consultation note 02/21 -INR was 2.6 and 2.9 the last 2 days, and today is 3.3. Continue with daily INRs and adjust Coumadin as needed. 02/22 - Psychiatrist reviewed with Dr. Loyola as INR 4.1 today. She recommended holding Coumadin today, resume tomorrow at lower dose of 5mg daily Antoine and W, and 10mg on , , , , . Continue daily INRs. 02/23 -Resume Coumadin at lower dose as above, continue daily INR 02/24 -INR 3.3 yesterday, and 2.1 today. Continue Coumadin with daily labs. 02/25 - INR remains 2.1 today; continue daily labs 02/26 -INR 2.7. 02/27 -INR 3.4 -Coumadin held. 02/28 - INR 2.9. Coumadin restarted and dose decreased to 5 mg Thursday, Thursday, and Thursday; and 10 mg Thursday, Thursday, , and Thursday. 03/02 -INR 2.1. 03/04 - INR 1.9 Inventory Assets Strengths: Compliance with medical appts, stable housing, supportive family Needs: Noncompliance with OP treatment, lack of supports Risk Factors Assessment Male: Yes : Yes Do You Have Access To A Gun?: No Health Problems: Yes Mental Health Diagnoses: Yes Substance Use Disorders: No Previous Attempt: Yes Family History of Suicide: No Previous Psychiatric Hospitalization: Yes Hopelessness: Yes Smoker: No Protective Factors Assessment Confucianist Beliefs: No : No Responsible for Young Children: No Employed: No Stable Relationships: No Supportive Family: Yes Good Rapport with Provider: No Interval History Identifying Information SAUD ROMERO is a 58-year-old M who currently lives in an [place] alone, has a history of recurrent, severe depression with psychosis, anxiety NOS, and history of DVT/PE on chronic anticoagulation, and was admitted on 02/17/19 00:37 initially on a 201 voluntary commitment for depression and suicidality, after an overdose on approximately 25 tabs of an unknown armj-pps-nuwwjxi sleep medication. Pt is on a 304 involuntary inpatient commitment as of 03/02/19 - with plan to convert to an involuntary outpatient commitment on discharge. Chief Complaint "I got all the bad genes. There is no other explanation". Review of Systems Notes Complains of dry eyes and bad teeth Sleep Information Total Hours of Sleep: 5.5 Sleep Comments: saud slept in the quiet room as his new roommate was having difficulty settling in. Meal Information Percent Meal Consumed - Breakfast: 100 Percent Meal Consumed - Lunch: 100 Percent Meal Consumed - Dinner: 100 Nutrition Comment: per meal record Subjective Subjective Patient was seen & assessed and interval progress reviewed with treatment team. Patient had a better day yesterday per available staff with brighter appearing affect him however his thought process related to less negative subjects such as Benito Carlos, was described as still rather obsessive. On interview patient appears still depressed feeling defective but resisting further titration of antidepressant. Reviewed he had previously been treated on 200 mg of Zoloft in addition to the Seroquel. While he acknowledges recurrent history of depression he makes nonspecific complaints about the medications stating only that they sometimes feel "like too much." 304 outpatient conversion will be considered early next week. Today he states he feels 70-80% back to baseline. Physical Exam Psychiatric Orientation: cooperative Apperance: appeared stated age Eye Contact: + fair eye contact Motor Behavior: no abnormal motor movements Repetitive, clear Affect: + depressed affect "Not too bad" Thought Process: + perseveration; + thought process not linear or logical Thought Content: + delusions Suicidal Thoughts: denies suicidal thoughts Hallucinations: no auditory hallucinations Estimated Intelligence: average estimated intelligence Insight: + limited insight Judgement: + limited judgement Vital Signs (Past 24 Hours) Last Vital Signs Temp 36.5 C 03/05/19 06:51 Pulse 93 H 03/05/19 06:52 Resp 18 03/05/19 06:51 BP 123/88 03/05/19 06:52 Pulse Ox 96 02/17/19 01:23 Results & Data Current Inpatient Medications Current Inpatient Medications: Current Inpatient Medications Acetaminophen (Tylenol) 650 mg PO Q4H PRN PRN Reason: Headache or Minor Fever Stop: 03/19/19 01:15 Al Hydrox/Mg Hydrox/Simethicone (Maalox) 30 ml PO Q4H PRN PRN Reason: GI Upset Stop: 03/19/19 01:15 Last Admin: 02/17/19 08:47 Dose: 30 ml Documented by: Bismuth Subsalicylate (Kaopectate) 15 ml PO PRN PRN PRN Reason: Loose Stool Stop: 03/19/19 01:15 Magnesium Hydroxide (Milk Of Magnesia) 30 ml PO DAILY PRN PRN Reason: Heartburn Stop: 03/19/19 01:15 Minocycline 100mg Capsule~Non- Formulary Patient's Own Med 1 ea PO DAILY [facility] Stop: 04/02/19 08:59 Last Admin: 03/05/19 08:05 Dose: 1 cap Documented by: Quetiapine Fumarate (Seroquel) 100 mg PO HS PRN PRN Reason: insomnia Stop: 03/31/19 21:59 Sertraline HCl (Zoloft) 150 mg [facility] Stop: 04/01/19 08:59 Last Admin: 03/05/19 08:05 Dose: 150 mg Documented by: Simvastatin (Zocor) 40 mg PO HS [facility] Stop: 03/19/19 21:59 Last Admin: 03/04/19 22:16 Dose: Not Given Documented by: Sodium Chloride ([place] Nasal) 1 - 2 sprays NA PRN PRN PRN Reason: Nasal Dryness/Congestion Stop: 03/19/19 01:15 Trazodone HCl (Desyrel) 50 mg PO HS [facility] Stop: 04/01/19 21:59 Last Admin: 03/04/19 22:15 Dose: 50 mg Documented by: Warfarin Sodium (Coumadin) 5 mg PO MoTh@1600 [facility] Stop: 04/06/19 15:59 Warfarin Sodium (Coumadin) 10 mg PO [id number]@1600 [facility] Stop: 04/03/19 15:59 Last Admin: 03/05/19 17:16 Dose: 10 mg Documented by: Mental Health & Subst Abuse Tx Psychiatrist Name of Psychiatrist: [facility] - Dr. 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 - [address] Phone Number for Metal Reclamation Kettle Tender: [phone] Case Management Appointment Comment: [address] [facility], [address], [place] Post Discharge Appointments Primary Care Physician Name Of Family Doctor: [facility] Date of Appointment with PCP: 03/09/19 Time of Appointment with PCP: 12pm Provider Appointment Comment: [address] [facility] [place] [address] Contact Information Discharge Discharge [address]: [address] [place] [address] [place] [address] CPT Code CPT Code 62310 (1) Depression Depression Type: major depressive disorder Major depression recurrence: recurrent Active/Remission status: currently active Major depression episode severity: severe Psychotic features: with psychotic features Qualified Code(s): F33.3 - Major depressive disorder, recurrent, severe with psychotic symptoms
[2019-03-05] MEDS: SIMVASTATIN 40 MG TAB PO SCH (21:49)
[2019-03-05] MEDS: TRAZODONE HCL 50 MG TAB PO SCH (21:49)
[2019-03-06] MEDS: SERTRALINE HCL 100 MG TABLET PO SCH (08:02)
[2019-03-06] MEDS: MINOCYCLINE 100 MG PO SCH (08:04)
[2019-03-06 08:57] LABS: INR 2.6 (0.9-1.1); Prothrombin Time 25.2 Seconds (9.0-12.0)
[2019-03-06] MEDS ORDERED: SERTRALINE HCL 50 MG TABLET PO ONE (11:04)
--- NOTE | 2019-03-06 14:49 | Psychiatric Progress Note ---
Date of Service March 06, 2019 Impression / Recommendations Impression 58-year-old single male with a history of severe recurrent depression with psychosis, anxiety NOS, PE/DVT on Coumadin, and noncompliance with mental health treatment who is admitted voluntarily after a suicide attempt by overdose on an unknown gewh-kqx-rewjexo sleeping medication (possibly diphenhydramine or melatonin, as acetaminophen level was negative). He has a history of a previous suicide attempt by overdose, and severe psychotic depression with multiple past hospitalizations, 2 courses of ECT, and noncompliance with outpatient treatment, which led to an involuntary outpatient commitment during his last psychiatric hospitalization here in 2015. He then dropped out of treatment after his commitment . He remains severely depressed, ruminative, and isolating in his room, and initially would not agree to a family meeting, appropriate doses of medications, referrals for outpatient treatment or appropriate medication adjustments, with circular reasoning about why he does not need it (he feels better, he will need it, but nothing helps him to feel better), so a 304 commitment hearing was scheduled, and was granted today. He is intermittently refusing medication, initially sertraline, and then quetiapine, due to delusional beliefs that they caused acne. He remains depressed and hopeless, with psychotic rumination and circular reasoning. He is very slowly improving, has agreed to referrals for outpatient treatment and a family meeting with his friends, but remains unwilling to take the antidepressant and antipsychotic at doses that were previously effective, which decreases his chances of recovery. He remains at risk of , disability, or serious injury as a result of his psychiatric conditions, and inpatient treatment is least restrictive level of care. We will continue to encourage him to engage fully in treatment, except effective doses of medications, and work on discharge planning. In the past, he complied with outpatient treatment while on an involuntary outpatient commitment, but stopped medications and stopped attending appointments as soon as it lapsed, so we will again pursue this at discharge as a way to keep him stable and in treatment and decrease his risk of suicide, which is high without appropriate treatment. (1) Intentional overdose of drug in tablet form: 02/17 - Patient reports intentional overdose on an unknown rbgw-soh-ydncyrs sleep medication, is likely diphenhydramine or melatonin based on lack of an elevated acetaminophen level on his toxicology screen. -It would be helpful to identify a friend or family to go to his apartment and retrieve the medication, as well as any other medications in order to limit his access to large amounts of medications, given his history of at least 2 serious overdoses. -Ideally the patient's access to his Coumadin would be restricted, again due to the risk in overdose, but he lives alone and our ability to secure that medication after discharge may be limited. -Encourage group attendance and participation, work on healthy coping skills and a discharge safety plan. 02/18 - Suicidality and hopelessness is ongoing - "like the same as it was" 02/21 - SI and hopelessness ongoing. 02/24 - hopelessness continues, but slight improvement, and willing to work toward a plan for discharge on an involuntary outpatient commitment next week. He indicates that he is looking forward to starting a [employer] soon. 02/26 - hopelessness and suicidality have again worsened, and he is unable to contract for safety outside of the hospital. 03/01 -patient denies active suicidal ideation, but endorses ongoing depression, severe anxiety, negative ruminations, and has not been noncompliant with medication, so remains at high risk for decompensation with return of suicidal thoughts and a suicide attempt if discharged prematurely. (2) Depression: 02/17 -patient presents with severe depression and psychotic features. Ca nnot rule out a delusional disorder with respect to his chronically expressed belief that his life is doomed because he received the "bad feminine genes," while his brothers received the "good genes," who have had good health and lives. -Previous good response to quetiapine and sertraline, and the patient agrees to resume these medications to target mood, anxiety, sleep, and ruminations/delusions. -Start sertraline 50 mg daily and quetiapine 50 mg at bedtime with a repeat dose x1 as needed for sleep. We will titrate to previously effective doses of 200 mg every morning and 200 mg at bedtime, respectively. -Fasting lipid profile and glucose ordered for tomorrow morning for monitoring on an atypical antipsychotic. -Recommend family meeting with friend Luis Felipe and/or brothers. -Patient will need to be referred for outpatient services, including psychiatric care, therapy, and case management. Coordinate with the base service unit regarding his past treatment, specifically to clarify if he dropped out of treatment after his IOC , as this may argue toward the need for another IOC. -Explore ways to increase his supports in the community. 02/18 - Reviewed recommendation to continue titration of sertraline and quetiapine - patient only willing to increase one medication at this time, and chose quetiapine. - Will increase quetiapine to 100mg this evening; continue sertraline at 50mg for now with ongoing titration of both as tolerated - Fasting labs reviewed - glucose elevated at 116; lipid panel WNL - Family meeting with brother scheduled for tomorrow - Continue to explore aftercare/discharge planning 02/19 --slept better following increase in Seroquel, he is refusing additional titration today. 02/20 --titrate Zoloft to 100 mg, patient agreed. 02/21 - Patient refused sertraline this AM due to severe depression and not wanting to have to take meds. Continue to educate and offer medication, continue 302 and meds over objection if continues to refuse treatment. Encourage him to be out of his room and to attend groups. -Continue sertraline 100 mg at bedtime; he has refused further titration, but previously did well on 200 mg at bedtime. Sleep is improving. -Patient refused a family meeting, and we will continue to discuss and explore this with him, as he would clearly benefit from increased outpatient supports and socialization. 02/22 - Pt took sertraline 100mg this AM, but continues to refuse recommendation for continued titration of medications to previously stabilizing doses - and unable to provide rational reasoning for his refusal - Will order 150mg of quetiapine for this evening, and 150mg of sertraline for tomorrow morning - patient was informed of this change being made. If refusal, patient can be offered his previous doses of 100mg of each of the above medications - Will consider possible need to pursue involuntary inpatient commitment, as patient's behavior is not conducive with his current voluntary status and he is making not improvements - Continue to encourage a family meeting prior to discharge 02/23 -Medications increased as above. File for 304 involuntary commitment. Discussed this with patient, including that we may need to refer him for long- term inpatient treatment if he remains unwilling to fully engage in treatment and work on discharge planning. 02/24 -Continue current medications and continue to discuss increase to 200 mg sertraline, which today the patient declined. -Recommend involving his supports and a family meeting prior to discharge. Refer for outpatient treatment. 304 hearing 03/02/2019. 02/25 - Continue current medication regimen; he continues to decline previously stabilizing doses of quetiapine and sertraline (200mg each) - Continue to recommend involvement of family and willingness for additional outpatient support 02/26 -Patient refused sertraline yesterday, and initially refused it this morning, but then agreed to take a partial dose (100 mg). He initially stated he thought it was causing acne, but now says he was mistaken and it must be another medication. Encouraged him to take the full prescribed dose, and to allow us to titrate it to the previously effective dose of 200 mg daily. He is so focused on his negative ruminations that he is unable to fully engage in the interview. Continue to encourage him to allow titration of his medications to fully address his symptoms. -Patient reporting acne on his back and chest, which on exam is minimal. He reports previous good response to topical antibiotic, contacted pharmacy regarding what is available on formulary and am awaiting a call back. 02/27 - Patient now refusing quetiapine, believing it is causing acne breakout, although no acne visible. Offered Adapalene or Differen which could be brought in from OP pharmacy, and he declines. - Continue sertraline and increase to 200 mg daily for tomorrow to target depression. As patient refusing to take quetiapine, discussed alternative medications for augmentation and psychosis, and he agreed to a trial of aripiprazole. Reviewed risks and side effects. Start 5 mg daily. 02/28 - Continue current medication regimen; 200mg of sertraline and 5mg of a ripiprazole - Continue to provide education on current medications to motivate patient toward compliance 03/01 - Aripiprazole not affordable. Recommend return to quetiapine 150mg HS, as patient refusing 200mg dose (which was previously effective for him for psychotic anxious depression). He is refusing this as he thinks it caused him to break out. He did agree to revisit this discussion if he is not improving on an SSRI alone, as that is all he will agree to take right now. For now, I have ordered quetiapine 100 mg at bedtime as needed. - Patient will only agree to sertraline 150mg and will not take a higher dose, although he previously did well on 200mg and tolerated it well. Will therefore order 150mg dose, but advised him that we will need to continue to assess his response and that he may need a higher dose. - He is refusing a family meeting with his brothers, saying they won't talk to him any more, but agrees to a meeting with friends Josias and Rafiq. 03/02 -304 involuntary commitment granted. Plan to transition to an involuntary outpatient commitment at the time of discharge. -Patient remains unwilling to take an atypical antipsychotic, and will only take 150 mg of sertraline. He is reporting poor sleep and agrees to a trial of trazodone, ordered 50 mg at bedtime with a repeat dose if needed. Reviewed risks, benefits, and side effects. 03/03 -Patient refused trazodone last night, but reports better sleep as his roommate, who snores, slept in another room. Continue to offer it if needed. -Continue sertraline 150 mg daily as he refuses a higher dose. Scheduled family meeting with friend. Mood slightly improved. 03/04 - Continue as above, patient continues to refuse trazodone offered for sleep, but is compliant with sertraline 150mg daily - Continue to encourage patient, he is more active in the milieu and participates appropriately in groups 03/05 -Illness education provided regarding risk for relapse without adequate maintenance antidepressant treatment. He was also strongly encouraged to take his now as needed dose of Seroquel tonight as he may be appearing more obsessive today in absence of the medication 03/06 -I have some concern that he is decompensating a little bit as result of his refusal to continue the Seroquel with thoughts still quite negatively distorted and obsessive. After lengthy discussion he was willing to increase the Zoloft to his former maintenance dose of 200 mg daily. (3) Anxiety: 02/17 -patient endorses obsessional ruminations, but no compulsions, as well as some COSME symptoms. Has been diagnosed with anxiety NOS in the past. Previously responded well to sertraline, resume as above. -Hydroxyzine as needed for sleep and anxiety. -Work on healthy ways to cope with anxiety, and refer for outpatient therapy. 03/04 - Reporting some improvement in anxiety today 03/06 -Increase Zoloft as above (4) Anticoagulant long-term use: 02/17 -INR is typically stable in the 2-3 range, but has trended up over the past month, was 3.1 on 01/17/2019, 4.0 on 02/05/2019, and 4.5 in the ER yesterday. Rechecked this morning after discussing with Dr. Loyola, and it remains supratherapeutic at 4.5. Per her recommendations, will hold Coumadin and check daily PT and INR, and if it rises above 4.5, will treat with 5 mg of vitamin K p.o. She can be contacted for further recommendations if needed. 02/18 - Appreciate recommendations from Anticoagulation Clinic - Will continue daily PT and INR; improved today to 29.5 and 3.1 respectively - Recommendations are to resume home schedule starting this evening (5mg daily each day exception Thursday, when he receives 10mg - 65mg weekly total) - Additional recommendations available in Consultation note 02/21 -INR was 2.6 and 2.9 the last 2 days, and today is 3.3. Continue with daily INRs and adjust Coumadin as needed. 02/22 - Psychiatrist reviewed with Dr. Loyola as INR 4.1 today. She recommended holding Coumadin today, resume tomorrow at lower dose of 5mg daily Antoine and W, and 10mg on , , , , . Continue daily INRs. 02/23 -Resume Coumadin at lower dose as above, continue daily INR 02/24 -INR 3.3 yesterday, and 2.1 today. Continue Coumadin with daily labs. 02/25 - INR remains 2.1 today; continue daily labs 02/26 -INR 2.7. 02/27 -INR 3.4 -Coumadin held. 02/28 - INR 2.9. Coumadin restarted and dose decreased to 5 mg Thursday, Thursday, and Thursday; and 10 mg Thursday, Thursday, , and Thursday. 03/02 -INR 2.1. 03/04 - INR 1.9 03/06 INR-2.6 Inventory Assets Strengths: Compliance with medical appts, stable housing, supportive family Needs: Noncompliance with OP treatment, lack of supports Risk Factors Assessment Male: Yes : Yes Do You Have Access To A Gun?: No Health Problems: Yes Mental Health Diagnoses: Yes Substance Use Disorders: No Previous Attempt: Yes Family History of Suicide: No Previous Psychiatric Hospitalization: Yes Hopelessness: Yes Smoker: No Protective Factors Assessment Cheondoism Beliefs: No : No Responsible for Young Children: No Employed: No Stable Relationships: No Supportive Family: Yes Good Rapport with Provider: No Interval History Identifying Information SAUD ROMERO is a 58-year-old M who currently lives in an [place] alone, has a h istory of recurrent, severe depression with psychosis, anxiety NOS, and history of DVT/PE on chronic anticoagulation, and was admitted on 02/17/19 00:37 initially on a 201 voluntary commitment for depression and suicidality, after an overdose on approximately 25 tabs of an unknown kxuv-rps-hnzwvut sleep medication. Pt is on a 304 involuntary inpatient commitment as of 03/02/19 - with plan to convert to an involuntary outpatient commitment on discharge. Chief Complaint "I want to get better". Review of Systems Sleep Information Total Hours of Sleep: 7 Sleep Comments: saud slept in the quiet room as his new roommate was having difficulty settling in. Meal Information Percent Meal Consumed - Breakfast: 100 Percent Meal Consumed - Lunch: 100 Percent Meal Consumed - Dinner: 100 Nutrition Comment: per meal record Subjective Subjective Patient was seen & assessed and interval progress reviewed with treatment team. Patient again declined Seroquel at bedtime. Staff describe observing some pacing in the hallways. He rated his mood a 6 and described himself as hopeful last evening. This morning he reports he wants to get better however he remains preoccupied with his medications and seems to be worrying that his medicines interfere with his INR stability which may be another barrier to long-term compliance. INR was okay today at 2.6. He appears a little more obsessive in his thinking this morning again. He acknowledges a lot of negative thinking. He denies suicidal ideation though and expresses eagerness for discharge from the hospital. He is scheduled to meet with his case manager specialist tomorrow. Physical Exam Psychiatric Clean Apperance: appropriately dressed Notable for some hand wringing while speaking in Speech notable for slightly diminished tone Affect: + constricted affect He denies feeling depressed. He acknowledges anxiety Thought Process: + perseveration Thought Content: + cognitive distortions Suicidal Thoughts: denies suicidal thoughts, denies suicidal plan and denies suicidal intent Homicidal Thoughts: denies homicidal thoughts Insight: + limited insight Vital Signs (Past 24 Hours) Last Vital Signs Temp 37 C 03/06/19 06:54 Pulse 96 H 03/06/19 06:55 Resp 18 03/06/19 06:54 BP 132/89 03/06/19 06:55 Pulse Ox 96 02/17/19 01:23 Results & Data Laboratory Results Laboratory Results - last 24 hr 03/06/19 08:37 PT 25.2 H INR 2.6 H Current Inpatient Medications Current Inpatient Medications: Current Inpatient Medications Acetaminophen (Tylenol) 650 mg PO Q4H PRN PRN Reason: Headache or Minor Fever Stop: 03/19/19 01:15 Al Hydrox/Mg Hydrox/Simethicone (Maalox) 30 ml PO Q4H PRN PRN Reason: GI Upset Stop: 03/19/19 01:15 Last Admin: 02/17/19 08:47 Dose: 30 ml Documented by: Bismuth Subsalicylate (Kaopectate) 15 ml PO PRN PRN PRN Reason: Loose Stool Stop: 03/19/19 01:15 Magnesium Hydroxide (Milk Of Magnesia) 30 ml PO DAILY PRN PRN Reason: Heartburn Stop: 03/19/19 01:15 Minocycline 100mg Capsule~Non- Formulary Patient's Own Med 1 ea PO DAILY [facility] Stop: 04/02/19 08:59 Last Admin: 03/06/19 08:04 Dose: 1 cap Documented by: Quetiapine Fumarate (Seroquel) 100 mg PO HS PRN PRN Reason: insomnia Stop: 03/31/19 21:59 Sertraline HCl (Zoloft) 200 mg PO [place] Stop: 04/06/19 08:59 Simvastatin (Zocor) 40 mg PO HS [facility] Stop: 03/19/19 21:59 Last Admin: 03/05/19 21:49 Dose: 40 mg Documented by: Sodium Chloride ([place] Nasal) 1 - 2 sprays NA PRN PRN PRN Reason: Nasal Dryness/Congestion Stop: 03/19/19 01:15 Trazodone HCl (Desyrel) 50 mg PO HS [facility] Stop: 04/01/19 21:59 Last Admin: 03/05/19 21:49 Dose: 50 mg Documented by: Warfarin Sodium (Coumadin) 5 mg PO [id number]@1600 [facility] Stop: 04/06/19 15:59 Warfarin Sodium (Coumadin) 10 mg PO SuTuWeFrSa@1600 [facility] Stop: 04/03/19 15:59 Last Admin: 03/05/19 17:16 Dose: 10 mg Documented by: Mental Health & Subst Abuse Tx Psychiatrist Name of Psychiatrist: Obdulia Dia - Dr. Harrington Psychiatrist's Date of Appointment with Psychiatrist: 03/22/19 Time of Appointment with Psychiatrist: 2:30 pm Psychiatric Appointment Comment: [address] [facility] [facility] [address], [place], [place] Therapist Name of Therapist: Cynthia Menendez Therapist's Date of Therapist Appointment: 03/10/19 Time of Therapist Appointment: 1 pm Therapy Appointment Comment: [address] [facility], [place] [address] Box Annealer Name of Box Annealer: [facility] Jaycee Perez Phone Number for Box Annealer: [phone] Case Management Appointment Comment: [address] [facility], [address], [place] Post Discharge Appointments Primary Care Physician Name Of Family Doctor: RUBIO - Dr. Todd [facility] Date of Appointment with PCP: 03/09/19 Time of Appointment with PCP: 12pm Provider Appointment Comment: [address] [facility] [place] [address] Contact Information Discharge Discharge [address] [address] [place] [address], [address] [address] CPT Code CPT Code 24959 (1) Depression Depression Type: major depressive disorder Major depression recurrence: recurrent Active/Remission status: currently active Major depression episode severity: severe Psychotic features: with psychotic features Qualified Code(s): F33.3 - Major depressive disorder, recurrent, severe with psychotic symptoms
[2019-03-06] MEDS: WARFARIN SOD 10 MG TAB PO SCH (16:09)
[2019-03-06] MEDS: SIMVASTATIN 40 MG TAB PO SCH (22:17)
[2019-03-06] MEDS: TRAZODONE HCL 50 MG TAB PO SCH (22:18)
[2019-03-07] MEDS: SERTRALINE HCL 100 MG TABLET PO SCH (09:17)
[2019-03-07] MEDS: MINOCYCLINE 100 MG PO SCH (09:18)
--- NOTE | 2019-03-07 11:51 | Psychiatric Progress Note ---
Date of Service March 07, 2019 Impression / Recommendations Impression 58-year-old single male with a history of severe recurrent depression with psychosis, anxiety NOS, PE/DVT on Coumadin, and noncompliance with mental health treatment who is admitted voluntarily after a suicide attempt by overdose on an unknown [id number]-exnrngp sleeping medication (possibly diphenhydramine or melatonin, as acetaminophen level was negative). He has a history of a previous suicide attempt by overdose, and severe psychotic depression with multiple past hospitalizations, 2 courses of ECT, and noncompliance with outpatient treatment, which led to an involuntary outpatient commitment during his last psychiatric hospitalization here in 2015. He then dropped out of treatment after his commitment . He remains severely depressed, ruminative, and isolating in his room, and initially would not agree to a family meeting, appropriate doses of medications, referrals for outpatient treatment or appropriate medication adjustments, with circular reasoning about why he does not need it (he feels better, he will need it, but nothing helps him to feel better), so a 304 commitment hearing was scheduled, and was granted today. Had intermittently refused medication, initially sertraline, and then quetiapine, due to delusional beliefs that they caused acne. He has demonstrated mildly brighter affect, with ongoing but improved psychotic rumination and circular reasoning. He has demonstrated improvement over the course of his admission, has agreed to referrals for outpatient treatment and a family meeting with his friends, and recently agreed to taking sertraline at maximum dosage to target anxiety and depression. Pt continues to refuse an atypical antipsychotic. He remains at risk of , disability, or serious injury as a result of his psychiatric conditions, and inpatient treatment is least restrictive level of care. In the past, he complied with outpatient treatment while on an involuntary outpatient commitment, but stopped medications and stopped attending appointments as soon as it lapsed, so we will again pursue this at discharge as a way to keep him stable and in treatment and decrease his risk of suicide, which is high without appropriate treatment. (1) Intentional overdose of drug in tablet form: 02/17 - Patient reports intentional overdose on an unknown gpkd-clb-zujxcxt sleep medication, is likely diphenhydramine or melatonin based on lack of an elevated acetaminophen level on his toxicology screen. -It would be helpful to identify a friend or family to go to his apartment and retrieve the medication, as well as any other medications in order to limit his access to large amounts of medications, given his history of at least 2 serious overdoses. -Ideally the patient's access to his Coumadin would be restricted, again due to the risk in overdose, but he lives alone and our ability to secure that medication after discharge may be limited. -Encourage group attendance and participation, work on healthy coping skills and a discharge safety plan. 02/18 - Suicidality and hopelessness is ongoing - "like the same as it was" 02/21 - SI and hopelessness ongoing. 02/24 - hopelessness continues, but slight improvement, and willing to work toward a plan for discharge on an involuntary outpatient commitment next week. He indicates that he is looking forward to starting a [employer] soon. 02/26 - hopelessness and suicidality have again worsened, and he is unable to contract for safety outside of the hospital. 03/01 -patient denies active suicidal ideation, but endorses ongoing depression, severe anxiety, negative ruminations, and has not been noncompliant with medication, so remains at high risk for decompensation with return of suicidal thoughts and a suicide attempt if discharged prematurely. (2) Depression: 02/17 -patient presents with severe depression and psychotic features. Cannot rule out a delusional disorder with respect to his chronically expressed belief that his life is doomed because he received the "bad feminine genes," while his brothers received the "good genes," who have had good health and lives. -Previous good response to quetiapine and sertraline, and the patient agrees to resume these medications to target mood, anxiety, sleep, and ruminations/delusions. -Start sertraline 50 mg daily and quetiapine 50 mg at bedtime with a repeat dose x1 as needed for sleep. We will titrate to previously effective doses of 200 mg every morning and 200 mg at bedtime, respectively. -Fasting lipid profile and glucose ordered for tomorrow morning for monitoring on an atypical antipsychotic. -Recommend family meeting with friend Luis Felipe and/or brothers. -Patient will need to be referred for outpatient services, including psychiatric care, therapy, and case management. Coordinate with the base service unit regarding his past treatment, specifically to clarify if he dropped out of treatment after his IOC , as this may argue toward the need for another IOC. -Explore ways to increase his supports in the community. 02/18 - Reviewed recommendation to continue titration of sertraline and quetiapine - patient only willing to increase one medication at this time, and chose quetiapine. - Will increase quetiapine to 100mg this evening; continue sertraline at 50mg for now with ongoing titration of both as tolerated - Fasting labs reviewed - glucose elevated at 116; lipid panel WNL - Family meeting with brother scheduled for tomorrow - Continue to explore aftercare/discharge planning 02/19 --slept better following increase in Seroquel, he is refusing additional titration today. 02/20 --titrate Zoloft to 100 mg, patient agreed. 02/21 - Patient refused sertraline this AM due to severe depression and not wanting to have to take meds. Continue to educate and offer medication, continue 302 and meds over objection if continues to refuse treatment. Encourage him to be out of his room and to attend groups. -Continue sertraline 100 mg at bedtime; he has refused further titration, but previously did well on 200 mg at bedtime. Sleep is improving. -Patient refused a family meeting, and we will continue to discuss and explore this with him, as he would clearly benefit from increased outpatient supports and socialization. 02/22 - Pt took sertraline 100mg this AM, but continues to refuse recommendation for continued titration of medications to previously stabilizing doses - and unable to provide rational reasoning for his refusal - Will order 150mg of quetiapine for this evening, and 150mg of sertraline for tomorrow morning - patient was informed of this change being made. If refusal, patient can be offered his previous doses of 100mg of each of the above medications - Will consider possible need to pursue involuntary inpatient commitment, as patient's behavior is not conducive with his current voluntary status and he is making not improvements - Continue to encourage a family meeting prior to discharge 02/23 -Medications increased as above. File for 304 involuntary commitment. Discussed this with patient, including that we may need to refer him for long- term inpatient treatment if he remains unwilling to fully engage in treatment and work on discharge planning. 02/24 -Continue current medications and continue to discuss increase to 200 mg sertraline, which today the patient declined. -Recommend involving his supports and a family meeting prior to discharge. Refer for outpatient treatment. 304 hearing 03/02/2019. 02/25 - Continue current medication regimen; he continues to decline previously stabilizing doses of quetiapine and sertraline (200mg each) - Continue to recommend involvement of family and willingness for additional outpatient support 02/26 -Patient refused sertraline yesterday, and initially refused it this morning, but then agreed to take a partial dose (100 mg). He initially stated he thought it was causing acne, but now says he was mistaken and it must be another medication. Encouraged him to take the full prescribed dose, and to allow us to titrate it to the previously effective dose of 200 mg daily. He is so focused on his negative ruminations that he is unable to fully engage in the interview. Continue to encourage him to allow titration of his medications to fully address his symptoms. -Patient reporting acne on his back and chest, which on exam is minimal. He reports previous good response to topical antibiotic, contacted pharmacy regarding what is available on formulary and am awaiting a call back. 02/27 - Patient now refusing quetiapine, believing it is causing acne breakout, although no acne visible. Offered Adapalene or Differen which could be brought in from OP pharmacy, and he declines. - Continue sertraline and increase to 200 mg daily for tomorrow to target depression. As patient refusing to take quetiapine, discussed alternative medications for augmentation and psychosis, and he agreed to a trial of aripiprazole. Reviewed risks and side effects. Start 5 mg daily. 02/28 - Continue current medication regimen; 200mg of sertraline and 5mg of aripiprazole - Continue to provide education on current medications to motivate patient toward compliance 03/01 - Aripiprazole not affordable. Recommend return to quetiapine 150mg HS, as patient refusing 200mg dose (which was previously effective for him for psychotic anxious depression). He is refusing this as he thinks it caused him to break out. He did agree to revisit this discussion if he is not improving on an SSRI alone, as that is all he will agree to take right now. For now, I have ordered quetiapine 100 mg at bedtime as needed. - Patient will only agree to sertraline 150mg and will not take a higher dose, although he previously did well on 200mg and tolerated it well. Will therefore order 150mg dose, but advised him that we will need to continue to assess his response and that he may need a higher dose. - He is refusing a family meeting with his brothers, saying they won't talk to him any more, but agrees to a meeting with friends Josias and Rafiq. 03/02 -304 involuntary commitment granted. Plan to transition to an involuntary outpatient commitment at the time of discharge. -Patient remains unwilling to take an atypical antipsychotic, and will only take 150 mg of sertraline. He is reporting poor sleep and agrees to a trial of trazodone, ordered 50 mg at bedtime with a repeat dose if needed. Reviewed risks, benefits, and side effects. 03/03 -Patient refused trazodone last night, but reports better sleep as his roommate, who snores, slept in another room. Continue to offer it if needed. -Continue sertraline 150 mg daily as he refuses a higher dose. Scheduled family meeting with friend. Mood slightly improved. 03/04 - Continue as above, patient continues to refuse trazodone offered for sleep, but is compliant with sertraline 150mg daily - Continue to encourage patient, he is more active in the milieu and participates appropriately in groups 03/05 -Illness education provided regarding risk for relapse without adequate maintenance antidepressant treatment. He was also strongly encouraged to take his now as needed dose of Seroquel tonight as he may be appearing more obsessive today in absence of the medication 03/06 -I have some concern that he is decompensating a little bit as result of his refusal to continue the Seroquel with thoughts still quite negatively distorted and obsessive. After lengthy discussion he was willing to increase the Zoloft to his former maintenance dose of 200 mg daily. 03/07 - Continue current medication regimen; remains agreeable to taking sertraline at 200mg - Continues to decline trazodone and quetiapine (3) Anxiety: 02/17 -patient endorses obsessional ruminations, but no compulsions, as well as some COSME symptoms. Has been diagnosed with anxiety NOS in the past. Previously responded well to sertraline, resume as above. -Hydroxyzine as needed for sleep and anxiety. -Work on healthy ways to cope with anxiety, and refer for outpatient therapy. 03/04 - Reporting some improvement in anxiety today 03/06 -Increase Zoloft as above 03/07 - Continue as above (4) Anticoagulant long-term use: 02/17 -INR is typically stable in the 2-3 range, but has trended up over the past month, was 3.1 on 01/17/2019, 4.0 on 02/05/2019, and 4.5 in the ER yesterday. Rechecked this morning after discussing with Dr. Loyola, and it remains supratherapeutic at 4.5. Per her recommendations, will hold Coumadin and check daily PT and INR, and if it rises above 4.5, will treat with 5 mg of vitamin K p.o. She can be contacted for further recommendations if needed. 02/18 - Appreciate recommendations from Anticoagulation Clinic - Will continue daily PT and INR; improved today to 29.5 and 3.1 respectively - Recommendations are to resume home schedule starting this evening (5mg daily each day exception Thursday, when he receives 10mg - 65mg weekly total) - Additional recommendations available in Consultation note 02/21 -INR was 2.6 and 2.9 the last 2 days, and today is 3.3. Continue with daily INRs and adjust Coumadin as needed. 02/22 - Psychiatrist reviewed with Dr. Loyola as INR 4.1 today. She recommended holding Coumadin today, resume tomorrow at lower dose of 5mg daily Antoine and W, and 10mg on , , , , . Continue daily INRs. 02/23 -Resume Coumadin at lower dose as above, continue daily INR 02/24 -INR 3.3 yesterday, and 2.1 today. Continue Coumadin with daily labs. 02/25 - INR remains 2.1 today; continue daily labs 02/26 -INR 2.7. 02/27 -INR 3.4 -Coumadin held. 02/28 - INR 2.9. Coumadin restarted and dose decreased to 5 mg Thursday, Thursday, and Thursday; and 10 mg Thursday, Thursday, , and Thursday. 03/02 -INR 2.1. 03/04 - INR 1.9 03/06 INR-2.6 Inventory Assets Strengths: Compliance with medical appts, stable housing, supportive family Needs: Noncompliance with OP treatment, lack of supports Risk Factors Assessment Male: Yes : Yes Do You Have Access To A Gun?: No Health Problems: Yes Mental Health Diagnoses: Yes Substance Use Disorders: No Previous Attempt: Yes Family History of Suicide: No Previous Psychiatric Hospitalization: Yes Hopelessness: Yes Smoker: No Protective Factors Assessment Evangelical Beliefs: No : No Responsible for Young Children: No Employed: No Stable Relationships: No Supportive Family: Yes Good Rapport with Provider: No Interval History Identifying Information YINKA RMOERO is a 58-year-old M who currently lives in an [place] alone, has a history of recurrent, severe depression with psychosis, anxiety NOS, and history of DVT/PE on chronic anticoagulation, and was admitted on 02/17/19 00:37 initially on a 201 voluntary commitment for depression and suicidality, after an overdose on approximately 25 tabs of an unknown [id number]-aba-[id number] sleep m edication. Pt is on a 304 involuntary inpatient commitment as of 03/02/19 - with plan to convert to an involuntary outpatient commitment on discharge. Chief Complaint "The weekend was not so good, but today hasn't been too bad." Review of Systems Notes Constitutional: denied Cardiovascular: denied Respiratory: denied Gastrointestinal: denied Neurological: denied Psychiatric: denies symptoms other than stated above Total of at least 10 systems reviewed, pertinent positives as above and in HPI. Sleep Information Total Hours of Sleep: 6.75 Sleep Comments: awake on 329 rounds Meal Information Percent Meal Consumed - Breakfast: 100 Percent Meal Consumed - Lunch: 100 Percent Meal Consumed - Dinner: 100 Nutrition Comment: per meal record Subjective Subjective Patient was seen & assessed and interval progress reviewed with treatment team. Staff reports the patient had an decent day Monday 03/05 - attending groups and appropriate in interactions. On Thursday, it was reported the patient has shown some regression, verbalizing more ruminations and taking emotional dysregulation of his roommate personally. Pt rated his mood a 6/10 and "better" last evening. Pt was seen today to assess progress since admission. He is able to communicate to this provider that he has seen improvements in his condition over the course of his stay. Pt does admit that the weekend was difficult, though cannot give a particular reason as to why. He does feel that "in a few days" he will be ready to be discharged, stating "I'm going to have to do it sometime, I can't stay here forever." Pt is able to have a reasonable conversation with this provider regarding the aftercare services he has agreed to and that they will "make sure I'm doing what I'm supposed to." We discussed desire that patie nt takes the primary role of ensuring his consistency with medication and appointments, but that indeed these services with offer him additional support. Pt rates his mood today a "5/10" stating a normal, comfortable rating for him is "6/10". When asked what could be done to improving his mood, he states "I don't think it's something you can do, I'm going to have to take responsibility and do it." Pt denies SI and verbalizing more optimistic future oriented comments today. He does verbalize concern for dry eyes and is requesting drops, but denies other acute needs or concerns today. Physical Exam Psychiatric Orientation: alert, oriented x 3 and cooperative Apperance: appropriately dressed, appropriately groomed and appeared stated age Eye Contact: good eye contact Motor Behavior: steady gait and station and no abnormal motor movements Speech: normal rate/rhythm/volume of speech Affect: + anxious affect (appears to be improving mildly) and + blunted affect Mood: + anxious mood ("I don't know, I'm worried. But I'll have to try sometime."); no depressed mood Thought Process: goal directed thought process, clear/coherent thought process and + perseveration (easily redirected from ruminations) Thought Content: + preoccupation (ruminations are less severe) and + cognitive distortions Suicidal Thoughts: denies suicidal thoughts and denies suicidal intent Homicidal Thoughts: denies homicidal thoughts Hallucinations: no auditory hallucinations and no visual hallucinations Cognition: attention grossly intact and language grossly intact Estimated Intelligence: consistent with education level Insight: + limited insight (overall; though appearing improved over course of admission) Judgement: + limited judgement (overall; but appearing improved from time of admission) Vital Signs (Past 24 Hours) Last Vital Signs Temp 36.8 C 03/07/19 06:56 Pulse 69 03/07/19 06:57 Resp 18 03/07/19 06:56 BP 142/86 H 03/07/19 06:57 Pulse Ox 96 02/17/19 01:23 Results & Data Current Inpatient Medications Current Inpatient Medications: Current Inpatient Medications Acetaminophen (Tylenol) 650 mg PO Q4H PRN PRN Reason: Headache or Minor Fever Stop: 03/19/19 01:15 Al Hydrox/Mg Hydrox/Simethicone (Maalox) 30 ml PO Q4H PRN PRN Reason: GI Upset Stop: 03/19/19 01:15 Last Admin: 02/17/19 08:47 Dose: 30 ml Documented by: Bismuth Subsalicylate (Kaopectate) 15 ml PO PRN PRN PRN Reason: Loose Stool Stop: 03/19/19 01:15 Magnesium Hydroxide (Milk Of Magnesia) 30 ml PO DAILY PRN PRN Reason: Heartburn Stop: 03/19/19 01:15 Minocycline 100mg Capsule~Non- Formulary Patient's Own Med 1 ea PO DAILY SETH Stop: 04/02/19 08:59 Last Admin: 03/07/19 09:18 Dose: 1 cap Documented by: Quetiapine Fumarate (Seroquel) 100 mg PO HS PRN PRN Reason: insomnia Stop: 03/31/19 21:59 Sertraline HCl ([facility]ft) [facility] [place]: 04/06/19 08:59 Last Admin: 03/07/19 09:17 Dose: 200 mg Documented by: Simvastatin (Zocor) 40 mg PO HS [facility] Stop: 03/19/19 21:59 Last Admin: 03/06/19 22:17 Dose: 40 mg Documented by: Sodium Chloride ([place] Nasal) 1 - 2 sprays NA PRN PRN PRN Reason: Nasal Dryness/Congestion Stop: 03/19/19 01:15 Trazodone HCl (Desyrel) 50 mg PO HS [facility] Stop: 04/01/19 21:59 Last Admin: 03/06/19 22:18 Dose: Not Given Documented by: Warfarin Sodium (Coumadin) 5 mg PO MoTh@1600 [facility] Stop: 04/06/19 15:59 Warfarin Sodium (Coumadin) 10 mg PO SuTuWeFrSa@1600 [facility] Stop: 04/03/19 15:59 Last Admin: 03/06/19 16:09 Dose: 10 mg Documented by: Mental Health & Subst Abuse Tx Psychiatrist Name of Psychiatrist: [facility] - Dr. Harrington Psychiatrist's Date of Appointment with Psychiatrist: 03/22/19 Time of Appointment with Psychiatrist: 2:30 pm Psychiatric Appointment Comment: [address], [place], [place] Therapist Name of Therapist: Cynthia Menendez Therapist's Date of Therapist Appointment: 03/10/19 Time of Therapist Appointment: 1 pm Therapy Appointment Comment: [address] [facility] [place] [address] Account Resolution Specialist Name of Account Resolution Specialist: [facility] - [address] Phone Number for Account Resolution Specialist: [phone] Date of Appointment with Account Resolution Specialist: 03/11/19 Time of Appointment with Account Resolution Specialist: 3:00 p.m. Case Management Appointment Comment: Will meet you at your residence Post Discharge Appointments Primary Care Physician Name Of Family Doctor: [facility] Date of Appointment with PCP: 03/09/19 Time of Appointment with PCP: 12pm Provider Appointment Comment: [address] [place] [address] [place] [address] Contact Information Discharge Discharge [address]: [address] [place] [address] CPT Code CPT Code 90784 (1) Depression Active/Remission status: currently active Depression Type: major depressive disorder Major depression episode severity: severe Major depression recurrence: recurrent Psychotic features: with psychotic features Qualified Code(s): F33.3 - Major depressive disorder, recurrent, severe with psychotic symptoms
[2019-03-07] MEDS ORDERED: WARFARIN SOD 5 MG TAB PO SCH (16:00)
[2019-03-07] MEDS: TRAZODONE HCL 50 MG TAB PO SCH (20:54)
[2019-03-07] MEDS: SIMVASTATIN 40 MG TAB PO SCH (20:55)
[2019-03-08 07:43] LABS: INR 2.8 (0.9-1.1); Prothrombin Time 26.8 Seconds (9.0-12.0)
[2019-03-08] MEDS: SERTRALINE HCL 100 MG TABLET PO SCH (07:51)
[2019-03-08] MEDS ORDERED: TRAZODONE HCL 50 MG TAB PO PRN (08:31)
[2019-03-08] MEDS: MINOCYCLINE 100 MG PO SCH (10:17)
--- NOTE | 2019-03-08 10:26 | Psychiatric Progress Note ---
Date of Service March 08, 2019 Impression / Recommendations Impression 58-year-old single male with a history of severe recurrent depression with psychosis, anxiety NOS, PE/DVT on Coumadin, and noncompliance with mental health treatment who is admitted voluntarily after a suicide attempt by overdose on an unknown pwvy-vqj-dvmcpqo sleeping medication (possibly diphenhydramine or melatonin, as acetaminophen level was negative). He has a history of a previous suicide attempt by overdose, and severe psychotic depression with multiple past hospitalizations, 2 courses of ECT, and noncompliance with outpatient treatment, which led to an involuntary outpatient commitment during his last psychiatric hospitalization here in 2015. He then dropped out of treatment after his commitment . He has demonstrated improvement, with mildly brighter affect, agreed to compliance with sertraline, referrals for outpatient treatment, and a family meeting with his friends, although he continues to refuse an atypical antipsychotic. He is sufficiently improved that we are submitting paperwork to transition him to an involuntary outpatient commitment, with discharge tomorrow. (1) Intentional overdose of drug in tablet form: 02/17 - Patient reports intentional overdose on an unknown jjje-iqb-ckqiwjo sleep medication, is likely diphenhydramine or melatonin based on lack of an elevated acetaminophen level on his toxicology screen. -It would be helpful to identify a friend or family to go to his apartment and retrieve the medication, as well as any other medications in order to limit his access to large amounts of medications, given his history of at least 2 serious overdoses. -Ideally the patient's access to his Coumadin would be restricted, again due to the risk in overdose, but he lives alone and our ability to secure that medication after discharge may be limited. -Encourage group attendance and participation, work on healthy coping skills and a discharge safety plan. 02/18 - Suicidality and hopelessness is ongoing - "like the same as it was" 02/21 - SI and hopelessness ongoing. 02/24 - hopelessness continues, but slight improvement, and willing to work toward a plan for discharge on an involuntary outpatient commitment next week. 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 02/26 - hopelessness and suicidality have again worsened, and he is unable to contract for safety outside of the hospital. 03/01 -patient denies active suicidal ideation, but endorses ongoing depression, severe anxiety, negative ruminations, and has not been noncompliant with medication, so remains at high risk for decompensation with return of suicidal thoughts and a suicide attempt if discharged prematurely. (2) Depression: 02/17 -patient presents with severe depression and psychotic features. Cannot rule out a delusional disorder with respect to his chronically expressed belief that his life is doomed because he received the "bad feminine genes," while his brothers received the "good genes," who have had good health and lives. -Previous good response to quetiapine and sertraline, and the patient agrees to resume these medications to target mood, anxiety, sleep, and ruminations/delusions. -Start sertraline 50 mg daily and quetiapine 50 mg at bedtime with a repeat dose x1 as needed for sleep. We will titrate to previously effective doses of 200 mg every morning and 200 mg at bedtime, respectively. -Fasting lipid profile and glucose ordered for tomorrow morning for monitoring on an atypical antipsychotic. -Recommend family meeting with friend Luis Felipe and/or brothers. -Patient will need to be referred for outpatient services, including psychiatric care, therapy, and case management. Coordinate with the [facility] regarding his past treatment, specifically to clarify if he dropped out of treatment after his IOC , as this may argue toward the need for another IOC. -Explore ways to increase his supports in the community. 02/18 - Reviewed recommendation to continue titration of sertraline and quetiapine - patient only willing to increase one medication at this time, and chose quetiapine. - Will increase quetiapine to 100mg this evening; continue sertraline at 50mg for now with ongoing titration of both as tolerated - Fasting labs reviewed - glucose elevated at 116; lipid panel WNL - Family meeting with brother scheduled for tomorrow - Continue to explore aftercare/discharge planning 02/19 --slept better following increase in Seroquel, he is refusing additional titration today. 02/20 --titrate Zoloft to 100 mg, patient agreed. 02/21 - Patient refused sertraline this AM due to severe depression and not wanting to have to take meds. Continue to educate and offer medication, continue 302 and meds over objection if continues to refuse treatment. Encourage him to be out of his room and to attend groups. -Continue sertraline 100 mg at bedtime; he has refused further titration, but previously did well on 200 mg at bedtime. Sleep is improving. -Patient refused a family meeting, and we will continue to discuss and explore this with him, as he would clearly benefit from increased outpatient supports and socialization. 02/22 - Pt took sertraline 100mg this AM, but continues to refuse recommendation for continued titration of medications to previously stabilizing doses - and unable to provide rational reasoning for his refusal - Will order 150mg of quetiapine for this evening, and 150mg of sertraline for tomorrow morning - patient was informed of this change being made. If refusal, patient can be offered his previous doses of 100mg of each of the above medications - Will consider possible need to pursue involuntary inpatient commitment, as patient's behavior is not conducive with his current voluntary status and he is making not improvements - Continue to encourage a family meeting prior to discharge 02/23 -Medications increased as above. File for 304 involuntary commitment. Discussed this with patient, including that we may need to refer him for long- term inpatient treatment if he remains unwilling to fully engage in treatment and work on discharge planning. 02/24 -Continue current medications and continue to discuss increase to 200 mg sertraline, which today the patient declined. -Recommend involving his supports and a family meeting prior to discharge. Refer for outpatient treatment. 304 hearing 03/02/2019. 02/25 - Continue current medication regimen; he continues to decline previously stabilizing doses of quetiapine and sertraline (200mg each) - Continue to recommend involvement of family and willingness for additional outpatient support 02/26 -Patient refused sertraline yesterday, and initially refused it this morning, but then agreed to take a partial dose (100 mg). He initially stated he thought it was causing acne, but now says he was mistaken and it must be another medication. Encouraged him to take the full prescribed dose, and to allow us to titrate it to the previously effective dose of 200 mg daily. He is so focused on his negative ruminations that he is unable to fully engage in the interview. Continue to encourage him to allow titration of his medications to fully address his symptoms. -Patient reporting acne on his back and chest, which on exam is minimal. He reports previous good response to topical antibiotic, contacted pharmacy regarding what is available on formulary and am awaiting a call back. 02/27 - Patient now refusing quetiapine, believing it is causing acne breakout, although no acne visible. Offered Adapalene or Differen which could be brought in from OP pharmacy, and he declines. - Continue sertraline and increase to 200 mg daily for tomorrow to target depression. As patient refusing to take quetiapine, discussed alternative medications for augmentation and psychosis, and he agreed to a trial of aripiprazole. Reviewed risks and side effects. Start 5 mg daily. 02/28 - Continue current medication regimen; 200mg of sertraline and 5mg of aripiprazole - Continue to provide education on current medications to motivate patient toward compliance 03/01 - Aripiprazole not affordable. Recommend return to quetiapine 150mg HS, as patient refusing 200mg dose (which was previously effective for him for psychotic anxious depression). He is refusing this as he thinks it caused him to break out. He did agree to revisit this discussion if he is not improving on an SSRI alone, as that is all he will agree to take right now. For now, I have ordered quetiapine 100 mg at bedtime as needed. - Patient will only agree to sertraline 150mg and will not take a higher dose, although he previously did well on 200mg and tolerated it well. Will therefore order 150mg dose, but advised him that we will need to continue to a ssess his response and that he may need a higher dose. - He is refusing a family meeting with his brothers, saying they won't talk to him any more, but agrees to a meeting with friends Josias and Rafiq. 03/02 -304 involuntary commitment granted. Plan to transition to an involuntary outpatient commitment at the time of discharge. -Patient remains unwilling to take an atypical antipsychotic, and will only take 150 mg of sertraline. He is reporting poor sleep and agrees to a trial of trazodone, ordered 50 mg at bedtime with a repeat dose if needed. Reviewed risks, benefits, and side effects. 03/03 -Patient refused trazodone last night, but reports better sleep as his roommate, who snores, slept in another room. Continue to offer it if needed. -Continue sertraline 150 mg daily as he refuses a higher dose. Scheduled family meeting with friend. Mood slightly improved. 03/04 - Continue as above, patient continues to refuse trazodone offered for sleep, but is compliant with sertraline 150mg daily - Continue to encourage patient, he is more active in the milieu and participates appropriately in groups 03/05 -Illness education provided regarding risk for relapse without adequate m aintenance antidepressant treatment. He was also strongly encouraged to take his now as needed dose of Seroquel tonight as he may be appearing more obsessive today in absence of the medication 03/06 -I have some concern that he is decompensating a little bit as result of his refusal to continue the Seroquel with thoughts still quite negatively distorted and obsessive. After lengthy discussion he was willing to increase the Zoloft to his former maintenance dose of 200 mg daily. 03/07 - Continue current medication regimen; remains agreeable to taking sertraline at 200mg - Continues to decline trazodone and quetiapine (3) Anxiety: 02/17 -patient endorses obsessional ruminations, but no compulsions, as well as some COSME symptoms. Has been diagnosed with anxiety NOS in the past. Previously responded well to sertraline, resume as above. -Hydroxyzine as needed for sleep and anxiety. -Work on healthy ways to cope with anxiety, and refer for outpatient therapy. 03/04 - Reporting some improvement in anxiety today 03/06 -Increase Zoloft as above 03/07 - Continue as above (4) Anticoagulant long-term use: 02/17 -INR is typically stable in the 2-3 range, but has trended up over the past month, was 3.1 on 01/17/2019, 4.0 on 02/05/2019, and 4.5 in the ER yesterday. Rechecked this morning after discussing with Dr. Loyola, and it remains supratherapeutic at 4.5. Per her recommendations, will hold Coumadin and check daily PT and INR, and if it rises above 4.5, will treat with 5 mg of vitamin K p.o. She can be contacted for further recommendations if needed. 02/18 - Appreciate recommendations from Anticoagulation Clinic - Will continue daily PT and INR; improved today to 29.5 and 3.1 respectively - Recommendations are to resume home schedule starting this evening (5mg daily each day exception Thursday, when he receives 10mg - 65mg weekly total) - Additional recommendations available in Consultation note 02/21 -INR was 2.6 and 2.9 the last 2 days, and today is 3.3. Continue with daily INRs and adjust Coumadin as needed. 02/22 - Psychiatrist reviewed with Dr. Loyola as INR 4.1 today. She recommended holding Coumadin today, resume tomorrow at lower dose of 5mg daily Antoine and W, and 10mg on M, T, , , Sa. Continue daily INRs. 02/23 -Resume Coumadin at lower dose as above, continue daily INR 02/24 -INR 3.3 yesterday, and 2.1 today. Continue Coumadin with daily labs. 02/25 - INR remains 2.1 today; continue daily labs 02/26 -INR 2.7. 02/27 -INR 3.4 -Coumadin held. 02/28 - INR 2.9. Coumadin restarted and dose decreased to 5 mg Thursday, Thursday, and Thursday; and 10 mg Thursday, Thursday, , and Thursday. 03/02 -INR 2.1. 03/04 - INR 1.9 03/06 INR-2.6 Inventory Assets Strengths: Compliance with medical appts, stable housing, supportive family Needs: Noncompliance with OP treatment, lack of supports Risk Factors Assessment Male: Yes : Yes Do You Have Access To A Gun?: No Health Problems: Yes Mental Health Diagnoses: Yes Substance Use Disorders: No Previous Attempt: Yes Family History of Suicide: No Previous Psychiatric Hospitalization: Yes Hopelessness: Yes Smoker: No Protective Factors Assessment [facility] Beliefs: No : No Responsible for Young Children: No Employed: No Stable Relationships: No Supportive Family: Yes Good Rapport with Provider: No Interval History Identifying Information YINKA ROMERO is a 58-year-old M who currently lives in an [place] alone, has a history of recurrent, severe depression with psychosis, anxiety NOS, and history of DVT/PE on chronic anticoagulation, and was admitted on 02/17/19 00:37 initially on a 201 voluntary commitment for depression and suicidality, after an overdose on approximately 25 tabs of an unknown kwsw-xkz-knaxcut sleep medication. Pt is on a 304 involuntary inpatient commitment as of 03/02/19 - with plan to convert to an involuntary outpatient commitment on discharge. Chief Complaint "A little better". Review of Systems Sleep Information Total Hours of Sleep: 6 Sleep Comments: awake at 0230 and 0530, asked to/used the quiet room bathroom so as not to awaken his roommate Meal Information Percent Meal Consumed - Breakfast: 100 Percent Meal Consumed - Lunch: 100 Percent Meal Consumed - Dinner: 100 Nutrition Comment: per meal record Subjective Subjective Patient was seen & assessed and interval progress reviewed with nursing and social work. Staff report On my assessment, the patient reports mood continues to slowly improve, and rates it a 7 out of 10. It has been easier for him to get up out of bed, come out of his room, and be around others, and he is feeling more optimistic. He denies side effects to the sertraline, and says he decided he didn't need medication for sleep. His plan when he gets home is to "lay down and sleep a little," but at the same time says he knows he needs to stay out of bed during the day and "get back to walking." When asked how he will structure his time at home, he says he sometimes goes to the library and play on his computer. He is also looking forward to his mygall league resuming. He denies SI, and ruminative thoughts are less, but still present. Physical Exam Psychiatric Orientation: alert, oriented x 3 and cooperative Apperance: appropriately dressed, appropriately groomed and appeared stated age Eye Contact: + fair eye contact Motor Behavior: steady gait and station and no abnormal motor movements Speech: normal rate/rhythm/volume of speech Affect depressed, but more reactive than earlier in stay, and brightens appropriately at times "better." Thought Process: goal directed thought process Thought Content: reality based without delusions Does not bring up beliefs that his genes are faulty , reports less rumination on negative thoughts Suicidal Thoughts: denies suicidal thoughts Homicidal Thoughts: denies homicidal thoughts Hallucinations: no auditory hallucinations and no visual hallucinations Cognition: recent memory grossly intact, attention grossly intact and language grossly intact Insight: + limited insight Judgement: + limited judgement Vital Signs (Past 24 Hours) Last Vital Signs Temp 36.4 C L 03/08/19 06:37 Pulse 96 H 03/08/19 06:38 Resp 18 03/08/19 06:37 BP 128/79 03/08/19 06:38 Pulse Ox 96 02/17/19 01:23 Results & Data Laboratory Results Laboratory Results - last 24 hr 03/08/19 07:18 PT 26.8 H INR 2.8 H Current Inpatient Medications Current Inpatient Medications: Current Inpatient Medications Acetaminophen (Tylenol) 650 mg PO Q4H PRN PRN Reason: Headache or Minor Fever Stop: 03/19/19 01:15 Al Hydrox/Mg Hydrox/Simethicone (Maalox) 30 ml PO Q4H PRN PRN Reason: GI Upset Stop: 03/19/19 01:15 Last Admin: 02/17/19 08:47 Dose: 30 ml Documented by: Bismuth Subsalicylate (Kaopectate) 15 ml PO PRN PRN PRN Reason: Loose Stool Stop: 03/19/19 01:15 Magnesium Hydroxide (Milk Of Magnesia) 30 ml PO DAILY PRN PRN Reason: Heartburn Stop: 03/19/19 01:15 Minocycline 100mg Capsule~Non- Formulary Patient's Own Med 1 ea PO DAILY SETH Stop: 04/02/19 08:59 Last Admin: 03/08/19 10:17 Dose: 1 cap Documented by: Quetiapine Fumarate (Seroquel) 100 mg PO HS PRN PRN Reason: insomnia Stop: 03/31/19 21:59 Sertraline HCl (Zoloft) 200 mg PO QAM [facility] Stop: 04/06/19 08:59 Last Admin: 03/08/19 07:51 Dose: 200 mg Documented by: Simvastatin (Zocor) 40 mg PO HS [facility] Stop: 03/19/19 21:59 Last Admin: 03/07/19 20:55 Dose: Not Given Documented by: Sodium Chloride (Mcdonough Nasal) 1 - 2 sprays NA PRN PRN PRN Reason: Nasal Dryness/Congestion Stop: 03/19/19 01:15 Trazodone HCl (Desyrel) 50 mg PO HS PRN PRN Reason: Anxiety/Insomnia Stop: 04/01/19 21:59 Warfarin Sodium (Coumadin) 5 mg PO MoTh@1600 [facility] Stop: 04/06/19 15:59 Last Admin: 03/07/19 15:32 Dose: 5 mg Documented by: Warfarin Sodium (Coumadin) 10 mg PO SuTuWeFrSa@1600 [facility] Stop: 04/03/19 15:59 Last Admin: 03/06/19 16:09 Dose: 10 mg Documented by: Mental Health & Subst Abuse Tx Psychiatrist Name of Psychiatrist: [facility] - Dr. Harrington Psychiatrist's Date of Appointment with Psychiatrist: 03/22/19 Time of Appointment with Psychiatrist: 2:30 pm Psychiatric Appointment Comment: [address], [facility] [address], [place], [place] Therapist Name of Therapist: Cynthia Menendez Therapist's Date of Therapist Appointment: 03/10/19 Time of Therapist Appointment: 1 pm Therapy Appointment Comment: [address] [facility], [place] [address] [employer] Associate Name of [employer] Associate: [facility] - [address] Phone Number for [employer] Associate: [phone] Date of Appointment with [employer] Associate: 03/11/19 Time of Appointment with [employer] Associate: 3:00 p.m. Case Management Appointment Comment: Will meet you at your residence Post Discharge Appointments Primary Care Physician Name Of Family Doctor: [facility]BIO - Dr. Todd [facility] Date of Appointment with PCP: 03/09/19 Time of Appointment with PCP: 12pm Provider Appointment Comment: [address] [facility] [place] [address] Contact Information Discharge Discharge [address]: [address] [place] [address], [address] [address] CPT Code CPT Code 65501 (1) Depression Active/Remission status: currently active Depression Type: major depressive disorder Major depression episode severity: severe Major depression recurrence: recurrent Psychotic features: with psychotic features Qualified Code(s): F33.3 - Major depressive disorder, recurrent, severe with psychotic symptoms
[2019-03-08] MEDS: WARFARIN SOD 10 MG TAB PO SCH (16:39)
[2019-03-08] MEDS: SIMVASTATIN 40 MG TAB PO SCH (21:02)
[2019-03-09] MEDS: SERTRALINE HCL 100 MG TABLET PO SCH (08:43)
[2019-03-09] MEDS: MINOCYCLINE 100 MG PO SCH ×2 (08:44→10:23)
--- NOTE | 2019-03-09 09:28 | Discharge Summary ---
Date of Service March 09, 2019 History of Present Illness The patient is known to us from 2 previous hospitalizations here, in November and December 2015, for psychotic depression and suicidal ideation. He was started on medication at the time of the first hospitalization and discharged with outpatient care, but was noncompliant and was readmitted several weeks later. His second hospitalization was for 15 days, and he was discharged on sertraline, quetiapine, and clonazepam. He was placed on a 304 involuntary outpatient commitment, due to a long history of noncompliance. He was discharged to follow-up with Rosaline at [facility], Eleanor Poole for therapy at [facility], case management with Av Perez, and recommendations for referral to psych rehab. Yesterday (02/16/2019) the patient presented to the ER after an intentional overdose on an unknown [id number] sleep medication. He estimated he took about 25 tablets the evening prior, as he has not been able to sleep for several days, then became extremely anxious, and decided to overdose. The next morning, he had shortness of breath and dry mouth, and auditory hallucinations of voices. He talked to a friend, said he thought he was going to , and the friend encouraged him to go to the ER. He reported depression, suicidal ideation, and feeling as if his "body is shutting down." He said "maybe I was trying to end it" when asked if the overdose was a suicide attempt, stating he was "older and sicker," and tired of being lonely. He endorsed chronic delusions that his twin brother got all the "good genes," while the patient received the bad, "left over genes." He believes this has caused him to have a poor life, with chronic depression and inability to be successful. He said his brother contacted police after the patient told him he was going to end his life by overdosing. Police brought him to the hospital he confirmed this report. He reported compliance with his Coumadin, and denied other substance use. He denied having any mental health treatment or taking any psychotropic medications currently. His INR was elevated in the ER so Coumadin was held. He agreed to voluntary hospitalization. On my assessment, he reports that he is depressed and anxious, has progressively declined over the past 2 years, and can't enjoy the activities he used to like walking and bowling, as his legs are stiff which he attributes to h/o blood clots. He says he hasn't been in outpatient treatment or on medications in ?years, as "they said I was good enough, didn't need it anymore." Although he reports he was doing well at that time and then decompensated after dropping out of treatment, he doesn't think treatment has helped him in the past, and doesn't think it will help him now. He perseverates on his brother who is "totally healthy, he got the good genes." He endorses low mood, hopelessness, anhedonia, suicidal ideation, poor sleep, low energy and motivation. Denies changes in appetite. He reports suicidal thoughts "when I couldn't sleep, and anxiety I guess," and wishes to be . He went out and bought sleep medication because he wasn't sleeping, and then "the anxiety got so bad I got the suicidal thoughts." He has had increasing SI for the past month, saying he has no friends, "no one comes around, no one wants to be around with me the way I am, it's my own fault." He later says he has one friend, Luis Felipe, who he talked to yesterday and who called police. He says he hasn't talked to his brothers in months because "they don't want to deal with me." Negative ruminations on the things he did wrong, like "leaving the perfect job at [employer] to come back here," which occurred when he was 18 years old. Says he "thinks every day about that, the biggest mistake I made." He believes that if he would have stayed in that job, "everything would have been perfect, it was the perfect job, had a girlfriend, life was easy." Reports AH of voices that occurred over the past couple days, which consisted of mumbling that he couldn't make out. Also had visual hallucinations of "pictures flashing," but can't give further details. He often thinks about his belief that he got "all the bad genes" which have doomed him to a terrible life, and is distraught. Reports episodic anxiety, with negative ruminations, worry, and feeling on edge, but denies panic, OCD, and PTSD. No h/o rebecca. Spoke with Dr. Loyola, who sees the patient at the anticoagulation clinic. Reviewed his lab work with her; typically his INR is very stable, but he was seen in the ER 02/05/2019 and had an INR of 4.0. Yesterday INR was 4.5, so trending up. She recommended daily INRs, and administration of vitamin K if it rises further. See remainder recommendations below. Physical Exam Mental Examination Well-nourished, well-developed white male appearing his stated age. Neatly dressed in slacks and a button down shirt, hair combed, good grooming and hygiene. Seated in no acute distress. Calm, cooperative, and pleasant. Fair eye contact. Normal gait and station, no abnormal movements. Mood is "okay, pretty good." Affect is blunted, but brighter than previously in hospitalization, reactive, and appropriate. Speech is spontaneous, normal rate, volume, and tone. Thoughts are linear and goal-directed. Denies SI, HI, hallucinations, and paranoia. No delusions evidenced. Alert and oriented. Level of intelligence estimated to be at least average. Insight and judgment are fair. Vital Signs (Past 24 Hours) Last Vital Signs Temp 36.5 C 03/09/19 07:06 Pulse 81 03/09/19 07:07 Resp 18 03/09/19 07:06 BP 112/77 03/09/19 07:07 Pulse Ox 96 02/17/19 01:23 Principal Diagnosis Major depressive disorder, recurrent, severe, with psychosis. Status post intentional overdose on [id number] sleep medication. Psychiatric Data Patient was hospitalized on our unit for 20 days. He initially agreed to a plan to resume medications that were previously effective for him, sertraline and quetiapine, to target psychosis with psychotic rumination and delusions of persecution. He struggled with commitment to taking medications, frequently refusing them, and engaging in irrational and circular reasoning about this, for example stating that he would not need medication if he felt better, and even though the medication had helped in the past, would intermittently refused to take it. He became convinced that 1 of his medications was causing his skin to break out, although on exam there were only a couple excoriated areas and it was unclear if they were due to acne. He reported previously being on minocycline, which was confirmed with his outpatient pharmacy, and it was restarted here, in large part to reassure him as he was extremely distraught about it. He ultimately refused to take the quetiapine, and it was discontinued. Although he reported poor sleep and agreed to a trial of trazodone, he then refused to take it. His sertraline was titrated to 200 mg daily, which he tolerated well. His mood and anxiety gradually improved, he was less ruminative and focused on negative thoughts about himself, and less preoccupied with his beliefs that he received "bad genes" while his brothers received "the good genes," and that this was the source of all of his problems. He initially refused to sign releases or allow referrals for outpatient treatment, stating that he would never get better, and other times stating that when he was well, he did not need treatment. He was placed on a 304 involuntary commitment as he was refusing medication, a family meeting, and outpatient treatment. He had been placed on an involuntary outpatient commitment at the time of discharge in 2015, and reported that he had done well and continued to follow up until the involuntary commitment , at which point he dropped out of treatment. He stated that being on an involuntary commitment would help him to be compliant with outpatient treatment. He was very resistant to family meeting as well, initially declining it, but eventually agreed to a meeting with his friend Luis Felipe, which was held 03/07/2019. His friend shared that the patient had been doing well for a couple of years after his last hospitalization, but as his depression worsened, he was unable to focus on the positives or to handle stress. He was referred for a blended case management, and his correctional case manager met with him on the unit. His Coumadin was adjusted due to supratherapeutic INR. Day of Discharge Assessment Staff report the patient has been consistently taking sertraline and Zocor, but declining sleep medication and quetiapine. He has been expressing hopefulness, and talking about his plans after discharge, including his bowling league. His correctional case manager came to the unit 03/07/2019, met with the patient, and reviewed his outpatient commitment treatment plan. On my assessment, the patient states that his mood is "okay, pretty good," and has improved since admission. His negative thoughts and ruminations have decreased significantly, and he denies suicidal thoughts or wishes to be . He is tolerating sertraline well without side effects. Sleep has improved, and he does not believe he needs sleep medication. He is willing to follow up with his outpatient plan as outlined, and has plans to spend time with friends and resume [employer] after discharge. He is working on correcting his negative self thoughts, and agrees to continue to work on this in therapy. He denies any safety concerns with discharge. Transition of Care Transition Of Care Record: was reviewed with the patient Advance Directives Advance Directives Information Provided: Yes Advance Directives: Yes Mental Health Advance Directive: No Advance Directives on File: No Living Will: Yes Power of Air Conditioning Unit Assembler: No Advance Directives Reason:: Declines as Mental Health Visit. Risk Factors Assessment Risk factors were mitigated by admission to the inpatient unit, adjusting medications to target severe depression, reviewing the recommendations for antipsychotic medication to target psychosis (which he declined), involving him in groups and therapy, placing him on an involuntary outpatient commitment due to history of treatment nonadherence, referring him for outpatient treatment, psychoeducation about his diagnoses and the recommended treatment, working on healthy coping skills and a discharge safety plan, and a family meeting with his friend. He has demonstrated improvement in mood, anxiety, and psychosis, is consistently denying suicidal thoughts, is tending to his ADLs independently, and stating willingness to follow up as an outpatient. He is endorsing hopefulness and making plans for the future, and is requesting discharge. As he is no longer at acute risk of harm to himself, he can be managed as an outpatient at this time. He is not at elevated risk for harm to others. Male: Yes : Yes Do You Have Access To A Gun?: No Health Problems: Yes Mental Health Diagnoses: Yes Substance Use Disorders: No Previous Attempt: Yes Family History of Suicide: No Previous Psychiatric Hospitalization: Yes Hopelessness: Yes Smoker: No Protective Factors Assessment Tenriism Beliefs: No : No Responsible for Young Children: No Employed: No Stable Relationships: No Supportive Family: Yes Good Rapport with Provider: No Tobacco Cessation at Discharge Tobacco Cessation Medication Prescribed at Discharge: Not Applicable/Non-Smoker Total Time Total Time Spent: Greater Than 30 Minutes Total Time Includes: Examination of the patient, Discharge Planning and Medication Reconciliation Discharge Data Consultations 02/18/19 08:50 Consult Anticoagulation Clinic Routine Lab Results 07/02/16/19 02/16/19 19:28 19:28 19:28 WBC 9.10 RBC 5.01 Hgb 14.9 Hct 43.5 MCV 86.8 MCH 29.7 MCHC 34.3 RDW Std Deviation 44.0 RDW Coeff of Christin 13.9 Plt Count 248 MPV 8.8 Immature Gran % (Auto) 0.2 Neut % (Auto) 70.3 Lymph % (Auto) 17.3 Faulkner % (Auto) 9.8 Eos % (Auto) 2.3 Baso % (Auto) 0.1 Immature Gran # (Auto) 0.02 Neut # (Auto) 6.40 Lymph # (Auto) 1.57 Faulkner # (Auto) 0.89 H Eos # (Auto) 0.21 Baso # (Auto) 0.01 PT INR APTT PTT Ratio Sodium 142 Potassium 3.6 Chloride 109 H Carbon Dioxide 28 Anion Gap 5.0 BUN 25 H Creatinine 1.30 Est Cr Clr Drug Dosing 73.7 Est GFR ( Amer) 68.7 Est GFR (Non-Af Amer) 59.3 BUN/Creatinine Ratio 19.4 Glucose 102 H Fasting Glucose Calcium 9.1 Magnesium 2.2 Total Bilirubin 0.4 AST 44 H ALT 35 Alkaline Phosphatase 56 Total Protein 7.4 Albumin 3.8 Globulin 3.6 Albumin/Globulin Ratio 1.1 Triglycerides Cholesterol LDL Cholesterol, Calc VLDL Cholesterol, Calc HDL Cholesterol Cholesterol/HDL Ratio TSH Urine Color Urine Appearance Urine pH Ur Specific Burkett Urine Protein Urine Glucose (UA) Urine Ketones Urine Blood Urine Nitrite Urine Bilirubin Urine Urobilinogen Ur Leukocyte Esterase Urine WBC (Auto) Urine RBC (Auto) U Hyaline Cast (Auto) U Epithel Cells (Auto) Urine Bacteria (Auto) Urine Crystals Calcium Oxalate Crystal Salicylates < 1.7 L Urine Opiates Screen Ur Methadone, Qual Acetaminophen < 2 L Urine Barbiturates Ur Phencyclidine (PCP) U Amphetamin/Meth Scrn MDMA (Ecstasy) Screen U Benzodiazepines Scrn Ur Cocaine Metabolite U Marijuana (THC) Screen Ethyl Alcohol mg/dL 02/16/19 02/16/19 02/16/19 19:28 19:28 19:28 WBC RBC Hgb Hct MCV MCH MCHC RDW Std Deviation RDW Coeff of Christin Plt Count MPV Immature Gran % (Auto) Neut % (Auto) Lymph % (Auto) Faulkner % (Auto) Eos % (Auto) Baso % (Auto) Immature Gran # (Auto) Neut # (Auto) Lymph # (Auto) Faulkner # (Auto) Eos # (Auto) Baso # (Auto) PT 41.4 H INR 4.5 H APTT 41.9 H PTT Ratio 1.5 Sodium Potassium Chloride Carbon Dioxide Anion Gap BUN Creatinine Est Cr Clr Drug Dosing Est GFR ( Amer) Est GFR (Non-Af Amer) BUN/Creatinine Ratio Glucose Fasting Glucose Calcium Magnesium Total Bilirubin AST ALT Alkaline Phosphatase Total Protein Albumin Globulin Albumin/Globulin Ratio Triglycerides Cholesterol LDL Cholesterol, Calc VLDL Cholesterol, Calc HDL Cholesterol Cholesterol/HDL Ratio TSH 1.930 Urine Color Urine Appearance Urine pH Ur Specific Burkett Urine Protein Urine Glucose (UA) Urine Ketones Urine Blood Urine Nitrite Urine Bilirubin Urine Urobilinogen Ur Leukocyte Esterase Urine WBC (Auto) Urine RBC (Auto) U Hyaline Cast (Auto) U Epithel Cells (Auto) Urine Bacteria (Auto) Urine Crystals Calcium Oxalate Crystal Salicylates Urine Opiates Screen Ur Methadone, Qual Acetaminophen Urine Barbiturates Ur Phencyclidine (PCP) U Amphetamin/Meth Scrn MDMA (Ecstasy) Screen U Benzodiazepines Scrn Ur Cocaine Metabolite U Marijuana (THC) Screen Ethyl Alcohol mg/dL < 3.0 02/16/19 02/16/19 02/17/19 19:40 19:40 10:01 WBC RBC Hgb Hct MCV MCH MCHC RDW Std Deviation RDW Coeff of Christin Plt Count MPV Immature Gran % (Auto) Neut % (Auto) Lymph % (Auto) Faulkner % (Auto) Eos % (Auto) Baso % (Auto) Immature Gran # (Auto) Neut # (Auto) Lymph # (Auto) Faulkner # (Auto) Eos # (Auto) Baso # (Auto) PT 41.3 H INR 4.5 H APTT PTT Ratio Sodium Potassium Chloride Carbon Dioxide Anion Gap BUN Creatinine Est Cr Clr Drug Dosing Est GFR ( Amer) Est GFR (Non-Af Amer) BUN/Creatinine Ratio Glucose Fasting Glucose Calcium Magnesium Total Bilirubin AST ALT Alkaline Phosphatase Total Protein Albumin Globulin Albumin/Globulin Ratio Triglycerides Cholesterol LDL Cholesterol, Calc VLDL Cholesterol, Calc HDL Cholesterol Cholesterol/HDL Ratio TSH Urine Color Dark Yellow Urine Appearance Clear Urine pH 5.0 Ur Specific Burkett 1.034 H Urine Protein Trace H Urine Glucose (UA) Negative Urine Ketones Negative Urine Blood Negative Urine Nitrite Negative Urine Bilirubin Negative Urine Urobilinogen Negative Ur Leukocyte Esterase Negative Urine WBC (Auto) 1-5 Urine RBC (Auto) 0-4 U Hyaline Cast (Auto) 1-5 U Epithel Cells (Auto) 5-10 H Urine Bacteria (Auto) Negative Urine Crystals Not Reportable Calcium Oxalate Crystal Present A Salicylates Urine Opiates Screen Neg Ur Methadone, Qual Neg Acetaminophen Urine Barbiturates Neg Ur Phencyclidine (PCP) Neg U Amphetamin/Meth Scrn Neg MDMA (Ecstasy) Screen Neg U Benzodiazepines Scrn Neg Ur Cocaine Metabolite Neg U Marijuana (THC) Screen Neg Ethyl Alcohol mg/dL 02/18/19 02/18/19 02/19/19 08:06 08:06 07:05 WBC RBC Hgb Hct MCV MCH MCHC RDW Std Deviation RDW Coeff of Christin Plt Count MPV Immature Gran % (Auto) Neut % (Auto) Lymph % (Auto) Faulkner % (Auto) Eos % (Auto) Baso % (Auto) Immature Gran # (Auto) Neut # (Auto) Lymph # (Auto) Faulkner # (Auto) Eos # (Auto) Baso # (Auto) PT 29.5 H 25.1 H INR 3.1 H 2.6 H APTT PTT Ratio Sodium Potassium Chloride Carbon Dioxide Anion Gap BUN Creatinine Est Cr Clr Drug Dosing Est GFR ( Amer) Est GFR (Non-Af Amer) BUN/Creatinine Ratio Glucose Fasting Glucose 116 H Calcium Magnesium Total Bilirubin AST ALT Alkaline Phosphatase Total Protein Albumin Globulin Albumin/Globulin Ratio Triglycerides 108 Cholesterol 175 LDL Cholesterol, Calc 105 VLDL Cholesterol, Calc 22 HDL Cholesterol 48 Cholesterol/HDL Ratio 4 TSH Urine Color Urine Appearance Urine pH Ur Specific Burkett Urine Protein Urine Glucose (UA) Urine Ketones Urine Blood Urine Nitrite Urine Bilirubin Urine Urobilinogen Ur Leukocyte Esterase Urine WBC (Auto) Urine RBC (Auto) U Hyaline Cast (Auto) U Epithel Cells (Auto) Urine Bacteria (Auto) Urine Crystals Calcium Oxalate Crystal Salicylates Urine Opiates Screen Ur Methadone, Qual Acetaminophen Urine Barbiturates Ur Phencyclidine (PCP) U Amphetamin/Meth Scrn MDMA (Ecstasy) Screen U Benzodiazepines Scrn Ur Cocaine Metabolite U Marijuana (THC) Screen Ethyl Alcohol mg/dL 02/20/19 02/21/19 02/22/19 06:34 07:21 07:03 WBC RBC Hgb Hct MCV MCH MCHC RDW Std Deviation RDW Coeff of Christin Plt Count MPV Immature Gran % (Auto) Neut % (Auto) Lymph % (Auto) Faulkner % (Auto) Eos % (Auto) Baso % (Auto) Immature Gran # (Auto) Neut # (Auto) Lymph # (Auto) Faulkner # (Auto) Eos # (Auto) Baso # (Auto) PT 27.7 H 30.7 H 37.7 H INR 2.9 H 3.3 H 4.1 H APTT PTT Ratio Sodium Potassium Chloride Carbon Dioxide Anion Gap BUN Creatinine Est Cr Clr Drug Dosing Est GFR ( Amer) Est GFR (Non-Af Amer) BUN/Creatinine Ratio Glucose Fasting Glucose Calcium Magnesium Total Bilirubin AST ALT Alkaline Phosphatase Total Protein Albumin Globulin Albumin/Globulin Ratio Triglycerides Cholesterol LDL Cholesterol, Calc VLDL Cholesterol, Calc HDL Cholesterol Cholesterol/HDL Ratio TSH Urine Color Urine Appearance Urine pH Ur Specific Burkett Urine Protein Urine Glucose (UA) Urine Ketones Urine Blood Urine Nitrite Urine Bilirubin Urine Urobilinogen Ur Leukocyte Esterase Urine WBC (Auto) Urine RBC (Auto) U Hyaline Cast (Auto) U Epithel Cells (Auto) Urine Bacteria (Auto) Urine Crystals Calcium Oxalate Crystal Salicylates Urine Opiates Screen Ur Methadone, Qual Acetaminophen Urine Barbiturates Ur Phencyclidine (PCP) U Amphetamin/Meth Scrn MDMA (Ecstasy) Screen U Benzodiazepines Scrn Ur Cocaine Metabolite U Marijuana (THC) Screen Ethyl Alcohol mg/dL 02/23/19 02/24/19 02/25/19 07:09 07:42 07:36 WBC RBC Hgb Hct MCV MCH MCHC RDW Std Deviation RDW Coeff of Christin Plt Count MPV Immature Gran % (Auto) Neut % (Auto) Lymph % (Auto) Faulkner % (Auto) Eos % (Auto) Baso % (Auto) Immature Gran # (Auto) Neut # (Auto) Lymph # (Auto) Faulkner # (Auto) Eos # (Auto) Baso # (Auto) PT 30.7 H 20.4 H 20.3 H INR 3.3 H 2.1 H 2.1 H APTT PTT Ratio Sodium Potassium Chloride Carbon Dioxide Anion Gap BUN Creatinine Est Cr Clr Drug Dosing Est GFR ( Amer) Est GFR (Non-Af Amer) BUN/Creatinine Ratio Glucose Fasting Glucose Calcium Magnesium Total Bilirubin AST ALT Alkaline Phosphatase Total Protein Albumin Globulin Albumin/Globulin Ratio Triglycerides Cholesterol LDL Cholesterol, Calc VLDL Cholesterol, Calc HDL Cholesterol Cholesterol/HDL Ratio TSH Urine Color Urine Appearance Urine pH Ur Specific Burkett Urine Protein Urine Glucose (UA) Urine Ketones Urine Blood Urine Nitrite Urine Bilirubin Urine Urobilinogen Ur Leukocyte Esterase Urine WBC (Auto) Urine RBC (Auto) U Hyaline Cast (Auto) U Epithel Cells (Auto) Urine Bacteria (Auto) Urine Crystals Calcium Oxalate Crystal Salicylates Urine Opiates Screen Ur Methadone, Qual Acetaminophen Urine Barbiturates Ur Phencyclidine (PCP) U Amphetamin/Meth Scrn MDMA (Ecstasy) Screen U Benzodiazepines Scrn Ur Cocaine Metabolite U Marijuana (THC) Screen Ethyl Alcohol mg/dL 02/26/19 02/27/19 02/28/19 08:01 07:37 07:06 WBC RBC Hgb Hct MCV MCH MCHC RDW Std Deviation RDW Coeff of Christin Plt Count MPV Immature Gran % (Auto) Neut % (Auto) Lymph % (Auto) Faulkner % (Auto) Eos % (Auto) Baso % (Auto) Immature Gran # (Auto) Neut # (Auto) Lymph # (Auto) Faulkner # (Auto) Eos # (Auto) Baso # (Auto) PT 26.2 H 31.6 H 27.4 H INR 2.7 H 3.4 H 2.9 H APTT PTT Ratio Sodium Potassium Chloride Carbon Dioxide Anion Gap BUN Creatinine Est Cr Clr Drug Dosing Est GFR ( Amer) Est GFR (Non-Af Amer) BUN/Creatinine Ratio Glucose Fasting Glucose Calcium Magnesium Total Bilirubin AST ALT Alkaline Phosphatase Total Protein Albumin Globulin Albumin/Globulin Ratio Triglycerides Cholesterol LDL Cholesterol, Calc VLDL Cholesterol, Calc HDL Cholesterol Cholesterol/HDL Ratio TSH Urine Color Urine Appearance Urine pH Ur Specific Burkett Urine Protein Urine Glucose (UA) Urine Ketones Urine Blood Urine Nitrite Urine Bilirubin Urine Urobilinogen Ur Leukocyte Esterase Urine WBC (Auto) Urine RBC (Auto) U Hyaline Cast (Auto) U Epithel Cells (Auto) Urine Bacteria (Auto) Urine Crystals Calcium Oxalate Crystal Salicylates Urine Opiates Screen Ur Methadone, Qual Acetaminophen Urine Barbiturates Ur Phencyclidine (PCP) U Amphetamin/Meth Scrn MDMA (Ecstasy) Screen U Benzodiazepines Scrn Ur Cocaine Metabolite U Marijuana (THC) Screen Ethyl Alcohol mg/dL 03/01/19 03/02/19 03/04/19 07:42 07:39 08:06 WBC RBC Hgb Hct MCV MCH MCHC RDW Std Deviation RDW Coeff of Christin Plt Count MPV Immature Gran % (Auto) Neut % (Auto) Lymph % (Auto) Faulkner % (Auto) Eos % (Auto) Baso % (Auto) Immature Gran # (Auto) Neut # (Auto) Lymph # (Auto) Faulkner # (Auto) Eos # (Auto) Baso # (Auto) PT 19.6 H 20.0 H 18.3 H INR 2.0 H 2.1 H 1.9 H APTT PTT Ratio Sodium Potassium Chloride Carbon Dioxide Anion Gap BUN Creatinine Est Cr Clr Drug Dosing Est GFR ( Amer) Est GFR (Non-Af Amer) BUN/Creatinine Ratio Glucose Fasting Glucose Calcium Magnesium Total Bilirubin AST ALT Alkaline Phosphatase Total Protein Albumin Globulin Albumin/Globulin Ratio Triglycerides Cholesterol LDL Cholesterol, Calc VLDL Cholesterol, Calc HDL Cholesterol Cholesterol/HDL Ratio TSH Urine Color Urine Appearance Urine pH Ur Specific Burkett Urine Protein Urine Glucose (UA) Urine Ketones Urine Blood Urine Nitrite Urine Bilirubin Urine Urobilinogen Ur Leukocyte Esterase Urine WBC (Auto) Urine RBC (Auto) U Hyaline Cast (Auto) U Epithel Cells (Auto) Urine Bacteria (Auto) Urine Crystals Calcium Oxalate Crystal Salicylates Urine Opiates Screen Ur Methadone, Qual Acetaminophen Urine Barbiturates Ur Phencyclidine (PCP) U Amphetamin/Meth Scrn MDMA (Ecstasy) Screen U Benzodiazepines Scrn Ur Cocaine Metabolite U Marijuana (THC) Screen Ethyl Alcohol mg/dL 03/06/19 03/08/19 08:37 07:18 WBC RBC Hgb Hct MCV MCH MCHC RDW Std Deviation RDW Coeff of Christin Plt Count MPV Immature Gran % (Auto) Neut % (Auto) Lymph % (Auto) Faulkner % (Auto) Eos % (Auto) Baso % (Auto) Immature Gran # (Auto) Neut # (Auto) Lymph # (Auto) Faulkner # (Auto) Eos # (Auto) Baso # (Auto) PT 25.2 H 26.8 H INR 2.6 H 2.8 H APTT PTT Ratio Sodium Potassium Chloride Carbon Dioxide Anion Gap BUN Creatinine Est Cr Clr Drug Dosing Est GFR ( Amer) Est GFR (Non-Af Amer) BUN/Creatinine Ratio Glucose Fasting Glucose Calcium Magnesium Total Bilirubin AST ALT Alkaline Phosphatase Total Protein Albumin Globulin Albumin/Globulin Ratio Triglycerides Cholesterol LDL Cholesterol, Calc VLDL Cholesterol, Calc HDL Cholesterol Cholesterol/HDL Ratio TSH Urine Color Urine Appearance Urine pH Ur Specific Burkett Urine Protein Urine Glucose (UA) Urine Ketones Urine Blood Urine Nitrite Urine Bilirubin Urine Urobilinogen Ur Leukocyte Esterase Urine WBC (Auto) Urine RBC (Auto) U Hyaline Cast (Auto) U Epithel Cells (Auto) Urine Bacteria (Auto) Urine Crystals Calcium Oxalate Crystal Salicylates Urine Opiates Screen Ur Methadone, Qual Acetaminophen Urine Barbiturates Ur Phencyclidine (PCP) U Amphetamin/Meth Scrn MDMA (Ecstasy) Screen U Benzodiazepines Scrn Ur Cocaine Metabolite U Marijuana (THC) Screen Ethyl Alcohol mg/dL Hospital Course (1) Intentional overdose of drug in tablet form: 02/17 - Patient reports intentional overdose on an unknown [id number] sleep medication, is likely diphenhydramine or melatonin based on lack of an elevated acetaminophen level on his toxicology screen. -It would be helpful to identify a friend or family to go to his apartment and retrieve the medication, as well as any other medications in order to limit his access to large amounts of medications, given his history of at least 2 serious overdoses. -Ideally the patient's access to his Coumadin would be restricted, again due to the risk in overdose, but he lives alone and our ability to secure that me dication after discharge may be limited. -Encourage group attendance and participation, work on healthy coping skills and a discharge safety plan. 02/18 - Suicidality and hopelessness is ongoing - "like the same as it was" 02/21 - SI and hopelessness ongoing. 02/24 - hopelessness continues, but slight improvement, and willing to work toward a plan for discharge on an involuntary outpatient commitment next week. He indicates that he is looking forward to starting a bowling league soon. 02/26 - hopelessness and suicidality have again worsened, and he is unable to contract for safety outside of the hospital. 03/01 -patient denies active suicidal ideation, but endorses ongoing depression, severe anxiety, negative ruminations, and has not been noncompliant with medication, so remains at high risk for decompensation with return of suicidal thoughts and a suicide attempt if discharged prematurely. (2) Depression: 02/17 -patient presents with severe depression and psychotic features. Cannot rule out a delusional disorder with respect to his chronically expressed belief that his life is doomed because he received the "bad feminine genes," while his brothers received the "good genes," who have had good health and lives. -Previous good response to quetiapine and sertraline, and the patient agrees to resume these medications to target mood, anxiety, sleep, and ruminations/delusions. -Start sertraline 50 mg daily and quetiapine 50 mg at bedtime with a repeat dose x1 as needed for sleep. We will titrate to previously effective doses of 200 mg every morning and 200 mg at bedtime, respectively. -Fasting lipid profile and glucose ordered for tomorrow morning for monitoring on an atypical antipsychotic. -Recommend family meeting with friend Luis Felipe and/or brothers. -Patient will need to be referred for outpatient services, including psychiatric care, therapy, and case management. Coordinate with the base service [facility] regarding his past treatment, specifically to clarify if he dropped out of treatment after his IOC , as this may argue toward the need for another IOC. -Explore ways to increase his supports in the community. 02/18 - Reviewed recommendation to continue titration of sertraline and quetiapine - patient only willing to increase one medication at this time, and chose quetiapine. - Will increase quetiapine to 100mg this evening; continue sertraline at 50mg for now with ongoing titration of both as tolerated - Fasting labs reviewed - glucose elevated at 116; lipid panel WNL - Family meeting with brother scheduled for tomorrow - Continue to explore aftercare/discharge planning 02/19 --slept better following increase in Seroquel, he is refusing additional titration today. 02/20 --titrate Zoloft to 100 mg, patient agreed. 02/21 - Patient refused sertraline this AM due to severe depression and not wanting to have to take meds. Continue to educate and offer medication, continue 302 and meds over objection if continues to refuse treatment. Encourage him to be out of his room and to attend groups. -Continue sertraline 100 mg at bedtime; he has refused further titration, but previously did well on 200 mg at bedtime. Sleep is improving. -Patient refused a family meeting, and we will continue to discuss and explore this with him, as he would clearly benefit from increased outpatient supports and socialization. 02/22 - Pt took sertraline 100mg this AM, but continues to refuse recommendation for continued titration of medications to previously stabilizing doses - and unable to provide rational reasoning for his refusal - Will order 150mg of quetiapine for this evening, and 150mg of sertraline for tomorrow morning - patient was informed of this change being made. If refusal, patient can be offered his previous doses of 100mg of each of the above medications - Will consider possible need to pursue involuntary inpatient commitment, as patient's behavior is not conducive with his current voluntary status and he is making not improvements - Continue to encourage a family meeting prior to discharge 02/23 -Medications increased as above. File for 304 involuntary commitment. Discussed this with patient, including that we may need to refer him for long- term inpatient treatment if he remains unwilling to fully engage in treatment and work on discharge planning. 02/24 -Continue current medications and continue to discuss increase to 200 mg sertraline, which today the patient declined. -Recommend involving his supports and a family meeting prior to discharge. Refer for outpatient treatment. 304 hearing 03/02/2019. 02/25 - Continue current medication regimen; he continues to decline previously stabilizing doses of quetiapine and sertraline (200mg each) - Continue to recommend involvement of family and willingness for additional outpatient support 02/26 -Patient refused sertraline yesterday, and initially refused it this morning, but then agreed to take a partial dose (100 mg). He initially stated he thought it was causing acne, but now says he was mistaken and it must be another medication. Encouraged him to take the full prescribed dose, and to allow us to titrate it to the previously effective dose of 200 mg daily. He is so focused on his negative ruminations that he is unable to fully engage in the interview. Continue to encourage him to allow titration of his medications to fully address his symptoms. -Patient reporting acne on his back and chest, which on exam is minimal. He reports previous good response to topical antibiotic, contacted pharmacy re garding what is available on formulary and am awaiting a call back. 02/27 - Patient now refusing quetiapine, believing it is causing acne breakout, although no acne visible. Offered Adapalene or Differen which could be brought in from OP pharmacy, and he declines. - Continue sertraline and increase to 200 mg daily for tomorrow to target depression. As patient refusing to take quetiapine, discussed alternative medications for augmentation and psychosis, and he agreed to a trial of aripiprazole. Reviewed risks and side effects. Start 5 mg daily. 02/28 - Continue current medication regimen; 200mg of sertraline and 5mg of aripiprazole - Continue to provide education on current medications to motivate patient toward compliance 03/01 - Aripiprazole not affordable. Recommend return to quetiapine 150mg HS, as patient refusing 200mg dose (which was previously effective for him for psychotic anxious depression). He is refusing this as he thinks it caused him to break out. He did agree to revisit this discussion if he is not improving on an SSRI alone, as that is all he will agree to take right now. For now, I have ordered quetiapine 100 mg at bedtime as needed. - Patient will only agree to sertraline 150mg and will not take a higher dose, although he previously did well on 200mg and tolerated it well. Will therefore order 150mg dose, but advised him that we will need to continue to assess his response and that he may need a higher dose. - He is refusing a family meeting with his brothers, saying they won't talk to him any more, but agrees to a meeting with friends Josias and Rafiq. 03/02 -304 involuntary commitment granted. Plan to transition to an involuntary outpatient commitment at the time of discharge. -Patient remains unwilling to take an atypical antipsychotic, and will only take 150 mg of sertraline. He is reporting poor sleep and agrees to a trial of trazodone, ordered 50 mg at bedtime with a repeat dose if needed. Reviewed risks, benefits, and side effects. 03/03 -Patient refused trazodone last night, but reports better sleep as his roommate, who snores, slept in another room. Continue to offer it if needed. -Continue sertraline 150 mg daily as he refuses a higher dose. Scheduled family meeting with friend. Mood slightly improved. 03/04 - Continue as above, patient continues to refuse trazodone offered for sleep, but is compliant with sertraline 150mg daily - Continue to encourage patient, he is more active in the milieu and participates appropriately in groups 03/05 -Illness education provided regarding risk for relapse without adequate maintenance antidepressant treatment. He was also strongly encouraged to take his now as needed dose of Seroquel tonight as he may be appearing more obsessive today in absence of the medication 03/06 -I have some concern that he is decompensating a little bit as result of his refusal to continue the Seroquel with thoughts still quite negatively distorted and obsessive. After lengthy discussion he was willing to increase the Zoloft to his former maintenance dose of 200 mg daily. 03/07 - Continue current medication regimen; remains agreeable to taking sertraline at 200mg - Continues to decline trazodone and quetiapine (3) Anxiety: 02/17 -patient endorses obsessional ruminations, but no compulsions, as well as some COSME symptoms. Has been diagnosed with anxiety NOS in the past. Previously responded well to sertraline, resume as above. -Hydroxyzine as needed for sleep and anxiety. -Work on healthy ways to cope with anxiety, and refer for outpatient therapy. 03/04 - Reporting some improvement in anxiety today 03/06 -Increase Zoloft as above 03/07 - Continue as above (4) Anticoagulant long-term use: 02/17 -INR is typically stable in the 2-3 range, but has trended up over the past month, was 3.1 on 01/17/2019, 4.0 on 02/05/2019, and 4.5 in the ER yesterday. Rechecked this morning after discussing with Dr. Loyola, and it remains supratherapeutic at 4.5. Per her recommendations, will hold Coumadin and check daily PT and INR, and if it rises above 4.5, will treat with 5 mg of vitamin K p.o. She can be contacted for further recommendations if needed. 02/18 - Appreciate recommendations from Anticoagulation Clinic - Will continue daily PT and INR; improved today to 29.5 and 3.1 respectively - Recommendations are to resume home schedule starting this evening (5mg daily each day exception Thursday, when he receives 10mg - 65mg weekly total) - Additional recommendations available in Consultation note 02/21 -INR was 2.6 and 2.9 the last 2 days, and today is 3.3. Continue with daily INRs and adjust Coumadin as needed. 02/22 - Psychiatrist reviewed with Dr. Loyola as INR 4.1 today. She recommended holding Coumadin today, resume tomorrow at lower dose of 5mg daily Antoine and W, and 10mg on , , , , Sa. Continue daily INRs. 02/23 -Resume Coumadin at lower dose as above, continue daily INR 02/24 -INR 3.3 yesterday, and 2.1 today. Continue Coumadin with daily labs. 02/25 - INR remains 2.1 today; continue daily labs 02/26 -INR 2.7. 02/27 -INR 3.4 -Coumadin held. 02/28 - INR 2.9. Coumadin restarted and dose decreased to 5 mg Thursday, Thursday, and Thursday; and 10 mg Thursday, Thursday, , and Thursday. 03/02 -INR 2.1. 03/04 - INR 1.9 03/06 INR-2.6 Mental Health & Subst Abuse Tx Psychiatrist Name of Psychiatrist: Obdulia Guerrero Psychiatry - Dr. Harrington Psychiatrist's Date of Appointment with Psychiatrist: 03/22/19 Time of Appointment with Psychiatrist: 2:30 pm Psychiatric Appointment Comment: [address] [place] [address] 2, [place], [place] Therapist Name of Therapist: Cynthia Menendez Therapist's Date of Therapist Appointment: 03/10/19 Time of Therapist Appointment: 1 pm Therapy Appointment Comment: [address] [facility], [place] [address] Mangle Roll Operator Name of Mangle Roll Operator: Sheri Perez Phone Number for Mangle Roll Operator: [phone] Date of Appointment with Mangle Roll Operator: 03/11/19 Time of Appointment with Mangle Roll Operator: 3:00 p.m. Case Management Appointment Comment: Will meet you at your residence Post Discharge Appointments Primary Care Physician Name Of Family Doctor: [facility] Date of Appointment with PCP: 03/09/19 Time of Appointment with PCP: 12pm Provider Appointment Comment: [address] [place] [address] [place] [address] Smoking Cessation Counseling Tobacco Cessation Medication Prescribed at Discharge: Not Applicable/Non-Smoker Contact Information Discharge Discharge [address]: [address] [place] [address], [address] [address] Discharge Plan Discharge Items Patient Disposition: Home - Self-Care Reason For Visit: DEPRESSIVE DISORDER Discharge Diagnosis: Major depressive disorder, severe, with psychosis Discharge Goals: Improve disease control, Improve function, Learn about illness, Specific goals and Therapeutic intervention Specific Goals: Refer for outpatient treatment Activity: Per 'Additional Instructions' section Non-emergency contact: Primary Care Provider, Psychiatrist and Therapist Call non-emergency contact if: you have any medication questions and your symptoms worsen Follow-up/Referrals: Catalina Todd MD [Primary Care Provider] - Diet: Regular Addtl Provider Instructions: SPECIAL CARE INSTRUCTIONS: 1. Follow through with your scheduled aftercare appointments. If unable to keep an appointment, please call to reschedule. 2. Take your medication only as prescribed. Medication should not be changed or stopped without the approval of your doctor. In the event of worsening symptoms or concerns about side effects, contact your doctor immediately. 3. Utilize new healthy coping skills, anger management skills, and stress management skills learned during your hospitalization. Journal feelings and process them with a support person. Identify stressors or situations that may result in relapse, deterioration or inappropriate behaviors and develop a plan to deal with those issues. 4. If your coping skills are ineffective and you are in crisis, contact your outpatient providers for direction. If unable to reach your providers, please call the CAN HELP LINE AT or go to the closest Emergency Room. 5. Avoid alcohol and un-prescribed drugs. 6. You have been provided with the Mental Health Advance Directives Pamphlet for your review. AFTERCARE APPOINTMENTS: * Please call your insurance company prior to your scheduled appointment to confirm your aftercare providers are covered. Take your insurance information to your appointments. WHO TO CALL AND WHEN: Medical Emergencies: For questions or emergencies related to your hospital stay, please contact the Inpatient Behavioral Health Unit at [phone]. A education nurse is on-call 09/02 for the Behavioral Health Unit for emergencies At any time you feel your situation is an emergency, you may also call 911 immediately. Your Doctors Instructions noted above were prepared by provider Gigner Vann MD. Prescriptions: New sertraline 100 mg Tablet 200 mg PO QAM Qty: 60 RF: 0 Minocycline 1 ea PO DAILY Qty: 1 RF: 0 Continued simvastatin 40 mg tablet 40 mg PO HS Qty: 30 RF: 5 Changed warfarin 10 mg tablet 5 mg PO 2XWK Qty: 0 RF: 0 warfarin 10 mg tablet 10 mg PO 5XWK Qty: 0 RF: 0 Stand-Alone Forms: [facility] Discharge Orders: Discharge Order (Routine); Ordered 03/09/19 Ordered By: Ginger Vann Admission Data Admit Date/Time: 02/17/19 00:37 Attending Provider: Ginger Vann Admit Provider: Genevivee Gray Primary Care Provider: Catalina Todd Other Providers: Guera Loyola Service: Psychiatry Other Interventions: Discharge Summary Assessment (RN) Last Done: 03/09/19 09:59 PSY Interdisciplinary Discharge Planning Last Done: 03/09/19 09:59 Pending Studies at Discharge: No DC Date/Time DO NOT enter until pt leaves facility: 03/09/19 11:07
== END 2019-03-09 11:07 | disposition home or self-care (01) | DRG 918 ==
LOC: ED 18:31 → 3S 02-17 00:37

== ENCOUNTER 2019-03-29 15:47 | Inpatient (IN) ==
[2019-03-29] MEDS ORDERED: NALOXONE HCL 0.4 MG/1 ML VIAL/CARP IV STA (15:52)
[2019-03-29] MEDS ORDERED: BENZTROPINE MESYLATE 1 MG/ML 2 ML AMP IV STA (15:52)
[2019-03-29 16:05] LABS: Eosinophils # (auto) 0.12 K/uL (0-0.5); Eosinophils % (auto) 1.1 %; Hematocrit (blood only) 39.4 % (42-52); Hemoglobin 13.8 g/dL (14.0-18.0); Immature Granulocytes # (auto) 0.02 K/uL (0.00-0.02); Immature Granulocytes % (auto) 0.2 %; Lymphocytes # (auto) 1.02 K/uL (1.2-3.4); Lymphocytes % (auto) 9.5 %; Mean Corpuscular Volume 84.7 fL (80-100); Mean Platelet Volume 9.2 fL (7.4-10.4); Monocytes # (auto) 1.27 K/uL (0.11-0.59); Monocytes % (auto) 11.9 %; Neutrophils # (auto) 8.28 K/uL (1.4-6.5); Neutrophils % (auto) 77.3 %; Platelet Count 262 K/uL (130-400); RDW Standard Deviation 42.7 fL (36.4-46.3); Red Blood Count 4.65 M/uL (4.7-6.1); White Blood Count 10.71 K/uL (4.8-10.8)
[2019-03-29 16:20] LABS: INR 3.4 (0.9-1.1)
[2019-03-29 16:31] LABS: Albumin Level 3.4 gm/dl (3.4-5.0); BUN Creatinine Ratio 28.1 (10-20); Calcium 9.7 mg/dl (8.5-10.1); Creatinine Clr Calc Pharmacy 99.3 ml/min; Est GFR (Non-African American) 87.2; Potassium 3.4 mmol/L (3.5-5.1)
[2019-03-29 16:31] LABS: iSTAT Hemoglobin 14.3 g/dl (14.0-18.0); iSTAT Ionized Calcium 1.18 mmol/l (1.12-1.32); iSTAT Potassium 3.6 mEq/L (3.3-5.0)
--- NOTE | 2019-03-29 16:34 | CT Scan Report ---
CT head/brain wo con CT DOSE: 537.48 mGy.cm HISTORY: Mental status change Pt c/o AMS TECHNIQUE: Multiaxial CT images of the head were performed without the use of intravenous contrast. A dose lowering technique was utilized adhering to the principles of ALARA. Comparison: None. Findings: The paranasal sinuses and mastoid air cells are clear. The calvarium and skull base are int act. The ventricles and sulci are within normal limits. There is no mass, hematoma, midline shift, or acute infarct. Impression: No acute intracranial abnormality. The above report was generated using voice recognition software. It may contain grammatical, syntax or spelling errors. Electronically signed by: Good Lozada M.D. 03/29/2019 4:32 PM
[2019-03-29 16:42] LABS: Albumin Globulin Ratio 0.8 (0.9-2); Globulin 4.2 gm/dl (2.5-4.0); Total Protein 7.6 gm/dl (6.4-8.2)
[2019-03-29] MEDS ORDERED: cefTRIAXone SODIUM 2,000 MG/70 ML BAG IV STA (16:53)
[2019-03-29] MEDS ORDERED: VANCOMYCIN HCL 2,000 MG in SODIUM CHLORIDE 0.9% 500 ML IV ONE (16:53)
[2019-03-29] MEDS ORDERED: VANCOMYCIN CONSULT ACTIVE PRN ×2 (16:53→20:47)
[2019-03-29 17:12] LABS: Creatine Kinase 870 U/L (39-308); Creatine Kinase MB 18.5 ng/ml (0.5-3.6); Troponin I < 0.015 ng/ml (0-0.045)
--- NOTE | 2019-03-29 17:48 | Ultrasound Report ---
US venous doppler LE RT CLINICAL HISTORY: Right lower extremity pain and swelling COMPARISON STUDY: February 2016 FINDINGS: No thrombus is visualized in the common femoral vein, or superior femoral vein.. There is n onocclusive thrombus within the popliteal vein. The thrombus appears to have some cystic spaces withi n it. It therefore may be subacute or chronic. It is less extensive than on the prior February 2016 hannah dy. Unfortunately there is no posttreatment baseline obtained. The calf veins appear patent as visual ized. IMPRESSION: 1. Extensive nonocclusive thrombus within the popliteal vein. The chronicity of this thrombus is diff icult to determine given the extensive DVT present on the prior February 2016 study as well as the some what lacelike appearance of the current thrombus. Electronically signed by: Ashu King M.D. 03/29/2019 5:46 PM
--- NOTE | 2019-03-29 17:55 | XRay Report ---
XR chest 1V portable CLINICAL HISTORY: weakness COMPARISON STUDY: 03/19/2019 FINDINGS: The heart is the upper limits of normal in size. There is no failure. There is no lobar con solidation. There is mild basilar cistern prominence, likely atelectatic.[There are no significant pl eural effusions IMPRESSION: 1. Slightly prominent basilar markings, likely atelectatic. No evidence of lobar consolidation Electronically signed by: Ashu King M.D. 03/29/2019 5:54 PM
[2019-03-29] MEDS: POTASSIUM CHLORIDE 20 MEQ TABCR PO STA ×2 (18:12→18:19)
[2019-03-29] MEDS ORDERED: SODIUM CHLORIDE 0.9% 1000ML 1,000 ML IV ONE (18:18)
--- NOTE | 2019-03-29 18:51 | History & Physical Report ---
Date of Service March 29, 2019 Assessment & Plan (1) Altered mental status: Patient is not responding to verbal or tactile stimuli. He is afebrile, hemodynamically stable, labs relatively unremarkable with exception of elevated CK. He is protecting his airway. CT imaging with no acute intracranial pathology. ?medication effects, infection, ingestion? Elevated CK ?seizure, ?prolonged down time, ?medication effects -Admit to medical floor -Check B12, Folate, Ammonia, Utox -Neuro checks q 4 hours -IVF and electrolyte repletion -Psychiatry consultation appreciated -IF Mental status fails to improve would consider LP and MRI Present on Admission?: Yes (2) Cellulitis: RLE cellulitis. Patient afebrile, HD stable, non-septic in appearance -Vancomycin -Ceftriaxone -Good area daily to monitor for progression Present on Admission?: Yes (3) Dehydration: IVF with K repletion Repeat labs in AM Present on Admission?: Yes (4) Depression: Continue Sertraline (5) Impaired fasting glucose: Fingersticks (6) Hyperlipidemia: Hold Simvastatin in setting of elevated CK Present on Admission?: Yes (7) Factor V Leiden mutation: Hold Coumadin for now Monitor INR Present on Admission?: Yes (8) DVT (deep venous thrombosis): Holding Coumadin for now for due to supratherapeutic INR -Repeat INR in AM F/E/N - NSS with K, monitor electrolytes, NPO for now until MS improves Ppx - Coumadin Code - Full Disposition - Admit to medical floor History of Present Illness Chief Complaint: Altered mental status Primary Care Provider: Catalina Todd MD Lee Wood is a 59yo C male with history of Factor V Leiden with prior DVT/PE on Coumadin anticoagulation, depression with prior suicide attempt via overdose presenting with AMS. History obtained through discussion with ER staff and chart review. Patient with AMS and does not provide details of history, does not answer questions or participate with exam. Police were called this afternoon for a wellness check and, by report, the patient was found to be minimally responsive. On arrival to the ER he was found to be afebrile, hemodynamically stable, not participating with exam or answering questions. Patient with recent Psychiatric admission from 02/17/19 - 03/09/19 for for recurrent, severe MDD with psychosis s/p intentional OD with OTC sleep medications. ER Course: Benztropine, Ceftriaxone, Naloxone, KCL, NSS, Vancomycin Allergies Allergy/AdvReac Type Severity Reaction Status Date / Time rivaroxaban Allergy Severe tongue Verified 03/09/19 12:20 swelled, hands swelled, redness, itching Home Medications Home Medications Medication Instructions Recorded Confirmed Type simvastatin 40 mg tablet 40 mg PO HS #30 tab 02/15/19 03/29/19 Rx minocycline 100 mg capsule 100 mg PO DAILY #30 cap 03/09/19 03/29/19 Rx sertraline 200 mg PO QAM #60 tab 03/09/19 03/29/19 Rx bupropion HCl [Wellbutrin SR] 100 mg PO DAILY 03/29/19 03/29/19 History buspirone 10 mg PO TID 03/29/19 03/29/19 History trazodone 100 mg PO HS PRN 03/29/19 03/29/19 History warfarin 5 - 10 mg PO UD 03/29/19 03/29/19 History Past Med/Surg History Medical History Impaired fasting glucose (Acute) Hyperlipidemia (Acute) Factor V Leiden mutation (Acute) DVT (deep venous thrombosis) (Acute) Depression (Chronic) Bilateral pulmonary embolism Right heart failure due to pulmonary hypertension Left shoulder pain (Resolved) Surgical History No pertinent past surgical history Family History Other No pertinent family history Social History Preferred Language: Kinyarwanda Communication Ability: Effective Visual Impairment: No Limitations Hearing Ability: Normal Unemployment Specialist Required: No Beliefs That Will Affect Care: None Current Living Situation: Alone Feels Safe at Home: Yes Smoking Status: Unknown if ever smoked Review of Systems Review of Systems: Unobtainable due to cognitive status Physical Exam Physical Exam: General: patient resting, eyes closed tightly, does not respond to verbal or tactile stimuli, does not answer questions or follow commands, non-toxic in appearance Skin: warm, dry, intact, no rashes or lesions HEENT: NC/AT, PERRL, anicteric sclera, conjunctiva without injection, external ear normal to inspection, nares patent, moist mucus membranes, dentition intact, neck supple, trachea midline, no LAD, no thyromegaly, no JVD Heart: +S1/S2, regular, no m/r/g Lungs: equal air entry bilaterally, no rales/rhonchi/wheezes Abd: +BS, soft, NT/ND, no masses/organomegaly/ascites Ext: warm, 2+ pulses in UE/LE bilaterally, no clubbing/cyanosis, RLE red, warm, swollen and tender. No crepitus/bullae or lymphangitic streaking. Area or redness marked. Neuro: patient does not respond to verbal stimuli, does not follow commands, withdraws from painful stimuli Results & Data Vital Signs (Past 12 Hours) Vital Signs Temp Pulse Resp BP Pulse Ox 03/29/19 16:23 97 03/29/19 15:57 37.1 C 89 16 150/76 H 97 Laboratory Results Lab Results 03/29/19 03/29/19 03/29/19 Range/Units 15:30 15:30 15:30 WBC 10.71 (4.8-10.8) K/uL RBC 4.65 L (4.7-6.1) M/uL Hgb 13.8 L (14.0-18.0) g/dL POC Hgb (14.0-18.0) g/dl Hct 39.4 L (42-52) % POC Hct (42-52) % MCV 84.7 (80-100) fL MCH 29.7 (25-34) pg MCHC 35.0 (32-36) g/dL RDW Std Deviation 42.7 (36.4-46.3) fL RDW Coeff of Christin 14.0 (11.5-14.5) % Plt Count 262 (130-400) K/uL MPV 9.2 (7.4-10.4) fL Immature Gran % (Auto) 0.2 % Neut % (Auto) 77.3 % Lymph % (Auto) 9.5 % [place] % (Auto) 11.9 % Eos % (Auto) 1.1 % Baso % (Auto) 0.0 % Immature Gran # (Auto) 0.02 (0.00-0.02) K/uL Neut # (Auto) 8.28 H (1.4-6.5) K/uL Lymph # (Auto) 1.02 L (1.2-3.4) K/uL [place] # (Auto) 1.27 H (0.11-0.59) K/uL Eos # (Auto) 0.12 (0-0.5) K/uL Baso # (Auto) 0.00 (0-0.2) K/uL PT 32.0 H (9.0-12.0) Seconds INR 3.4 H (0.9-1.1) POC Sodium (135-144) mEq/L Sodium 138 (136-145) mmol/L POC Potassium (3.3-5.0) mEq/L Potassium 3.4 L (3.5-5.1) mmol/L POC Chloride (101-112) mEq/L Chloride 103 (98-107) mmol/L Carbon Dioxide 24 (21-32) mmol/L POC Total CO2 (24-31) mEq/l Anion Gap 11.0 (3-11) POC Anion Gap (16-25) mmol/L POC BUN (7-18) mg/dl BUN 26 H (7-18) mg/dl Creatinine 0.94 (0.6-1.4) mg/dl POC Creatinine (0.6-1.3) mg/dl Est Cr Clr Drug Dosing 99.3 ml/min Est GFR ( Amer) 101.0 Est GFR (Non-Af Amer) 87.2 BUN/Creatinine Ratio 28.1 H (10-20) Glucose 99 (70-99) mg/dl POC Glucose (other) (70-99) mg/dl Calcium 9.7 (8.5-10.1) mg/dl POC Ioniz Calcium Uyen (1.12-1.32) mmol/l Total Bilirubin 1.0 (0.2-1) mg/dl AST 82 H (15-37) U/L ALT 72 (12-78) U/L Alkaline Phosphatase 56 (45-117) U/L Total Creatine Kinase (39-308) U/L CK-MB (CK-2) (0.5-3.6) ng/ml CK/CKMB % Calc (0-3.0) Troponin I (0-0.045) ng/ml Total Protein 7.6 (6.4-8.2) gm/dl Albumin 3.4 (3.4-5.0) gm/dl Globulin 4.2 H (2.5-4.0) gm/dl Albumin/Globulin Ratio 0.8 L (0.9-2) TSH 1.880 (0.300-4.500) uIu/ml Ethyl Alcohol mg/dL (0-3) mg/dl 03/29/19 03/29/19 03/29/19 Range/Units 15:30 16:14 16:16 WBC (4.8-10.8) K/uL RBC (4.7-6.1) M/uL Hgb (14.0-18.0) g/dL POC Hgb 14.3 (14.0-18.0) g/dl Hct (42-52) % POC Hct 42 (42-52) % MCV (80-100) fL MCH (25-34) pg MCHC (32-36) g/dL RDW Std Deviation (36.4-46.3) fL RDW Coeff of Christin (11.5-14.5) % Plt Count (130-400) K/uL MPV (7.4-10.4) fL Immature Gran % (Auto) % Neut % (Auto) % Lymph % (Auto) % [place] % (Auto) % Eos % (Auto) % Baso % (Auto) % Immature Gran # (Auto) (0.00-0.02) K/uL Neut # (Auto) (1.4-6.5) K/uL Lymph # (Auto) (1.2-3.4) K/uL [place] # (Auto) (0.11-0.59) K/uL Eos # (Auto) (0-0.5) K/uL Baso # (Auto) (0-0.2) K/uL PT (9.0-12.0) Seconds INR (0.9-1.1) POC Sodium 138 (135-144) mEq/L Sodium (136-145) mmol/L POC Potassium 3.6 (3.3-5.0) mEq/L Potassium (3.5-5.1) mmol/L POC Chloride 103 (101-112) mEq/L Chloride (98-107) mmol/L Carbon Dioxide (21-32) mmol/L POC Total CO2 20 L (24-31) mEq/l Anion Gap (3-11) POC Anion Gap 19.0 (16-25) mmol/L POC BUN 26 H (7-18) mg/dl BUN (7-18) mg/dl Creatinine (0.6-1.4) mg/dl POC Creatinine 1.0 (0.6-1.3) mg/dl Est Cr Clr Drug Dosing ml/min Est GFR ( Amer) Est GFR (Non-Af Amer) BUN/Creatinine Ratio (10-20) Glucose (70-99) mg/dl POC Glucose (other) 105 H (70-99) mg/dl Calcium (8.5-10.1) mg/dl POC Ioniz Calcium Uyen 1.18 (1.12-1.32) mmol/l Total Bilirubin (0.2-1) mg/dl AST (15-37) U/L ALT (12-78) U/L Alkaline Phosphatase (45-117) U/L Total Creatine Kinase 870 H (39-308) U/L CK-MB (CK-2) 18.5 H (0.5-3.6) ng/ml CK/CKMB % Calc 2.1 (0-3.0) Troponin I < 0.015 (0-0.045) ng/ml Total Protein (6.4-8.2) gm/dl Albumin (3.4-5.0) gm/dl Globulin (2.5-4.0) gm/dl Albumin/Globulin Ratio (0.9-2) TSH (0.300-4.500) uIu/ml Ethyl Alcohol mg/dL < 3.0 (0-3) mg/dl Diagnostic Findings US venous doppler LE RT CLINICAL HISTORY: Right lower extremity pain and swelling COMPARISON STUDY: February 2016 FINDINGS: No thrombus is visualized in the common femoral vein, or superior femoral vein.. There is nonocclusive thrombus within the popliteal vein. The thrombus appears to have some cystic spaces within it. It therefore may be subacute or chronic. It is less extensive than on the prior February 2016 study. Unfortunately there is no posttreatment baseline obtained. The calf veins appear patent as visualized. IMPRESSION: 1. Extensive nonocclusive thrombus within the popliteal vein. The chronicity of this thrombus is difficult to determine given the extensive DVT present on the prior February 2016 study as well as the somewhat lacelike appearance of the current thrombus. Electronically signed by: Ashu King M.D. 03/29/2019 5:46 PM Dictated: 03/29/191740 Transcribed: 03/29/191740 CT head/brain wo con CT DOSE: 537.48 mGy.cm HISTORY: Mental status change Pt c/o AMS TECHNIQUE: Multiaxial CT images of the head were performed without the use of intravenous contrast. A dose lowering technique was utilized adhering to the principles of ALARA. Comparison: None. Findings: The paranasal sinuses and mastoid air cells are clear. The calvarium and skull base are intact. The ventricles and sulci are within normal limits. There is no mass, hematoma, midline shift, or acute infarct. Impression: No acute intracranial abnormality. The above report was generated using voice recognition software. It may contain grammatical, syntax or spelling errors. Electronically signed by: Good Lozada M.D. 03/29/2019 4:32 PM Dictated: 03/29/191630 Transcribed: 03/29/191630 --- XR chest 1V portable CLINICAL HISTORY: weakness COMPARISON STUDY: 03/19/2019 FINDINGS: The heart is the upper limits of normal in size. There is no failure. There is no lobar consolidation. There is mild basilar cistern prominence, likely atelectatic.[There are no significant pleural effusions IMPRESSION: 1. Slightly prominent basilar markings, likely atelectatic. No evidence of lobar consolidation Electronically signed by: Ashu King M.D. 03/29/2019 5:54 PM Dictated: 03/29/19 1753 Transcribed: 03/29/19 1753 ECG Additional Comments: The study shows NSR at 73bpm, normal axis and intervals, no acute ischemic changes, study unchanged when compared to prior from [id number] Code Status & VTE Plan Code Status Full. Patient unable to answer questions regarding resuscitation status. He was Full Code during a prior admission thus will default to that. VTE Prophylaxis Plan VTE Prophylaxis will be ordered: Yes PG Care Time/CCT Total # of Minutes Spent Total Time Spent with Patient: Total time spent is greater than 50% in coordination of care (as documented) at patient's floor/unit and/or counseling patient: (1) Altered mental status Altered mental status type: unspecified Qualified Code(s): R41.82 - Altered mental status, unspecified (2) Depression Depression Type: major depressive disorder Major depression recurrence: recurrent Active/Remission status: remission status unspecified Qualified Code(s): F33.9 - Major depressive disorder, recurrent, unspecified (3) Hyperlipidemia Hyperlipidemia type: unspecified Qualified Code(s): E78.5 - Hyperlipidemia, unspecified (4) DVT (deep venous thrombosis) DVT location: lower extremity (5) Cellulitis Site of cellulitis: extremity Site of cellulitis of extremity: lower ext remity Laterality: right Qualified Code(s): L03.115 - Cellulitis of right lower limb
[2019-03-29] MEDS: POTASSIUM CHLORIDE / WTR 10 MEQ/100 ML PLCT IV SCH ×2 (18:54→20:08)
[2019-03-29] MEDS ORDERED: TRAZODONE HCL 100 MG TAB PO PRN (20:47)
[2019-03-29 21:32] LABS: HCO3 VBG 26 mmol/L; Oxygen Saturation VBG < 60.0 %; PCO2 VBG 44 mmHg (38-50); PO2 VBG 25 mmHg; pH VBG 7.39 (7.36-7.41)
[2019-03-29 21:37] LABS: Magnesium 1.9 mg/dl (1.8-2.4); Phosphorus 2.4 mg/dl (2.5-4.9)
[2019-03-29 22:00] LABS: Folate (Folic Acid) 16.47 ng/ml (>5.38)
[2019-03-29] MEDS: NSS + 20MEQ KCL 20 MEQ/1,000 ML BAG IV SCH (22:14)
--- NOTE | 2019-03-30 00:44 | Emergency Department Note ---
Entered by Leslie Bustos acting as a scribe for West Case MD History of Present Illness General Chief complaint: Confusion Stated complaint: UNRESPONSIVE Time Seen by Provider: 03/29/19 15:51 Source: patient and other (case management ) Limitations: patient cooperation History of Present Illness Onset (ago): day(s) 2 Location: lower extremity (right) Pain Consistency: + other (persistent) Quality: + other (pain/swelling) The patient is a 59 year old male who presents to the Emergency Room with complaints of persistent right lower extremity pain and swelling that began 2 days ago. Per case management, the patient's [id number] was concerned about his right lower extremity, so she called the casework supervisor. The casework supervisor states that she went to the patient's house, and the patient did not answer the door. The casework supervisor notes that she then called the police, and they were able to get. She states that the police officers were able to get a response from the patient as first, but he then stopped responding and was sent to the hospital. Case management states that they are unsure if the patient is taking his Coumadin. The patient's case assembler note that the patient has a history of DVT. HPI limited secondary to patient's cooperation. Home Medications Home Medications Medication Instructions Recorded Confirmed Type simvastatin 40 mg tablet 40 mg PO HS #30 tab 02/15/19 03/29/19 Rx minocycline 100 mg capsule 100 mg PO DAILY #30 cap 03/09/19 03/29/19 Rx sertraline 200 mg PO QAM #60 tab 03/09/19 03/29/19 Rx bupropion HCl [Wellbutrin SR] 100 mg PO DAILY 03/29/19 03/29/19 History buspirone 10 mg PO TID 03/29/19 03/29/19 History trazodone 100 mg PO HS PRN 03/29/19 03/29/19 History warfarin 5 - 10 mg PO UD 03/29/19 03/29/19 History Allergies Allergy/AdvReac Type Severity Reaction Status Date / Time rivaroxaban Allergy Severe tongue Verified 03/09/19 12:20 swelled, hands swelled, redness, itching Past Med/Surg History Medical History Impaired fasting glucose (Acute) Hyperlipidemia (Acute) Factor V Leiden mutation (Acute) DVT (deep venous thrombosis) (Acute) Depression (Chronic) Bilateral pulmonary embolism Right heart failure due to pulmonary hypertension Left shoulder pain (Resolved) Surgical History No pertinent past surgical history Family History Other No pertinent family history Social History Preferred Language: Czech Communication Ability: Impaired Communication Ability Comment: unable to document, pt nonverbal at this time, no family in room Visual Impairment: No Limitations Hearing Ability: Normal Auricular Therapist Required: No Beliefs That Will Affect Care: None Current Living Situation: Alone Current Living Situation Comment: unable to document, pt nonverbal at this time, no family in room Feels Safe at Home: Yes Smoking Status: Unknown if ever smoked Review of Systems See HPI for pertinent positives & negatives. Other (ROS limited secondary to patient cooperation. ) Physical Exam Vital Signs Vital Signs - 24 hr 03/29/19 15:57 03/29/19 16:22 03/29/19 16:23 Temperature 37.1 C Temperature Source Oral Sepsis Recent Fever Within 48 Hours No Sepsis New/Unexplained Change in Mental Status Yes Sepsis Action Taken by Nursing No Action Required Pulse Oximetry Post Tiitration 98 Pulse Rate 89 Pulse Rate from SpO2 Sensor Pulse Rhythm Regular Pulse Strength Normal Respiratory Rate 16 Respiratory Effort / Characteristics Non-Labored Respiratory Depth Normal Respiratory Pattern Regular Blood Pressure 150/76 H Blood Pressure Mean 100 Blood Pressure Position Sitting Pulse Oximetry 97 97 Oxygen Delivery Method Room Air Room Air Room Air 03/29/19 18:13 03/29/19 18:20 Temperature Temperature Source Sepsis Recent Fever Within 48 Hours Sepsis New/Unexplained Change in Mental Status Sepsis Action Taken by Nursing Pulse Oximetry Post Tiitration Pulse Rate 83 80 Pulse Rate from SpO2 Sensor 82 78 Pulse Rhythm Pulse Strength Respiratory Rate 20 20 Respiratory Effort / Characteristics Respiratory Depth Respiratory Pattern Blood Pressure 198/99 H Blood Pressure Mean 132 Blood Pressure Position Pulse Oximetry 100 99 Oxygen Delivery Method GENERAL: Awake, alert, well-appearing, in no acute distress HENT: Normocephalic, atraumatic. Oropharynx unremarkable. EYES: Normal conjunctiva. Sclera non-icteric. NECK: Supple. No nuchal rigidity. FROM. No JVD. RESPIRATORY: Clear to auscultation. CARDIAC: Regular rate, normal rhythm. Extremities warm and well perfused. Pulses equal. ABDOMEN: Soft, non-distended. No tenderness to palpation. No rebound or guarding. No masses. RECTAL: Deferred. MUSCULOSKELETAL: Chest examination reveals no tenderness. The back is symmetrical on inspection without obvious abnormality. There is no CVA tenderness to palpation. No joint edema. LOWER EXTREMITIES: Calves are equal size bilaterally and non-tender. No edema. No discoloration. NEURO: Normal sensorium. No sensory or motor deficits noted. Follows commands by crossing arms. Responds to painful stimuli. Groans with painful stimuli. Stops arms from hitting head. SKIN: No rash or jaundice noted. Course 1550: The patient was evaluated in room B01. A complete history and physical exam was performed. 1602: The patient was moved to room B12. 1616: I spoke with the emergency department case management about this patients case. 1802: I spoke with Dr. Nick, [facility] hospitalist, about the patients case. She will further evaluate the patient. Consultations Consultation #1: I spoke with Dr. Nick, [facility] hospitalist, about the patients case. She will further evaluate the patient. Time: 18:02 Administered Medications Bupropion HCl (Wellbutrin-Sr) 100 mg PO DAILY [facility] Stop: 04/29/19 08:59 Last Admin: 04/02/19 08:01 Dose: Not Given Documented by: [id number] Admin: 04/01/19 09:58 Dose: Not Given Documented by: [id number] Admin: 03/31/19 13:41 Dose: 100 mg Documented by: [id number] Admin: 03/30/19 10:45 Dose: Not Given Documented by: [id number] Cephalexin HCl (Keflex) 500 mg PO QID [facility] Stop: 04/07/19 00:59 Last Admin: 04/03/19 21:39 Dose: 500 mg Documented by: [id number] Admin: 04/03/19 16:28 Dose: 500 mg Documented by: [id number] Admin: 04/03/19 13:50 Dose: 500 mg Documented by: [id number] Enoxaparin Sodium (Lovenox) 150 mg SQ Q24H [facility] Stop: 05/01/19 13:59 Last Admin: 04/03/19 14:45 Dose: 150 mg Documented by: [id number] Admin: 04/02/19 15:06 Dose: 150 mg Documented by: [id number] Admin: 04/01/19 15:09 Dose: 150 mg Documented by: [id number] Lorazepam (Ativan) 2 mg IM Q2H PRN PRN Reason: Agitation Stop: 04/30/19 18:44 Last Admin: 04/02/19 17:37 Dose: 2 mg Documented by: [id number] Lorazepam (Ativan) 2 mg PO Q12 [facility] Stop: 05/03/19 12:59 Last Admin: 04/03/19 21:39 Dose: 2 mg Documented by: [id number] Admin: 04/03/19 13:50 Dose: 2 mg Documented by: [id number] Olanzapine (Zyprexa) 10 mg IM HS [facility] Stop: 04/30/19 20:59 Last Admin: 04/02/19 23:08 Dose: Not Given Documented by: [id number] Admin: 04/02/19 03:30 Dose: Not Given Documented by: [id number] Admin: 03/31/19 21:02 Dose: 10 mg Documented by: [id number] Quetiapine Fumarate (Seroquel) 50 mg PO [facility] Stop: 04/29/19 20:59 Last Admin: 04/03/19 21:39 Dose: 50 mg Documented by: [id number] Admin: 04/02/19 20:12 Dose: 50 mg Documented by: [id number] Admin: 04/02/19 03:27 Dose: Not Given Documented by: [id number] Admin: 03/31/19 21:16 Dose: Not Given Documented by: [id number] Admin: 03/30/19 21:12 Dose: Not Given Documented by: [id number] Quetiapine Fumarate (Seroquel) 25 mg PO Q4 PRN PRN Reason: anxiety or psychosis Stop: 04/29/19 19:59 Last Admin: 03/31/19 13:42 Dose: 25 mg Documented by: [id number] Sertraline HCl (Zoloft) 200 mg PO QAM [facility] Stop: 04/30/19 08:59 Last Admin: 04/03/19 08:16 Dose: 200 mg Documented by: [id number] Admin: 04/02/19 08:01 Dose: Not Given Documented by: [id number] Admin: 04/01/19 09:58 Dose: Not Given Documented by: [id number] Admin: 03/31/19 13:42 Dose: 200 mg Documented by: [id number] Warfarin Sodium (Coumadin) 5 mg PO DAILY@1600 [facility] Stop: 05/03/19 15:59 Last Admin: 04/03/19 16:28 Dose: 5 mg Documented by: [id number] Discontinued Medications Amoxicillin/Clavulanate Potassium (Augmentin 875mg) 1 tab PO BID [facility] Stop: 04/10/19 08:59 Last Admin: 03/31/19 21:16 Dose: Not Given Documented by: [id number] Admin: 03/31/19 14:56 Dose: Not Given Documented by: [id number] Benztropine Mesylate (Cogentin) 2 mg IV NOW STA Stop: 03/29/19 15:53 Last Admin: 03/29/19 16:16 Dose: 2 mg Documented by: [id number] Buspirone HCl (Buspar) 10 mg PO TID [facility] Stop: 04/28/19 20:59 Last Admin: 03/29/19 21:37 Dose: Not Given Documented by: [id number] Doxycycline Hyclate (Vibramycin) 100 mg PO BID [facility] Stop: 04/10/19 08:59 Last Admin: 03/31/19 21:17 Dose: Not Given Documented by: [id number] Admin: 03/31/19 14:56 Dose: Not Given Documented by: [id number] Haloperidol Lactate (Haldol) 2 mg IM NOW STA Stop: 03/31/19 11:36 Last Admin: 03/31/19 11:54 Dose: Not Given Documented by: [id number] Haloperidol Lactate (Haldol) Confirm Administered Dose 5 mg .ROUTE .STK-MED ONE Stop: 03/31/19 11:45 Last Admin: 03/31/19 11:52 Dose: 2 mg Documented by: [id number] Haloperidol Lactate (Haldol) 5 mg IM NOW STA Stop: 03/31/19 14:48 Last Admin: 03/31/19 15:00 Dose: 5 mg Documented by: [id number] Vancomycin HCl 2,000 mg/ (Sodium Chloride) 540 mls @ 200 mls/hr IV NOW ONE Stop: 03/29/19 19:34 Last Infusion: 03/29/19 21:36 Dose: 0 mls/hr Documented by: [id number] Admin: 03/29/19 18:53 Dose: 200 mls/hr Documented by: [id number] Ceftriaxone Sodium (Rocephin) 2,000 mg in 70 mls @ 140 mls/hr IV NOW STA Stop: 03/29/19 17:22 Last Infusion: 03/29/19 18:43 Dose: 0 mls/hr Documented by: [id number] Admin: 03/29/19 18:13 Dose: 140 mls/hr Documented by: [id number] Potassium Chloride (K Cesar / Wtr) 10 meq in 100 mls @ 100 mls/hr IV Q1H [facility] Stop: 03/29/19 20:29 Last Infusion: 03/29/19 21:35 Dose: 0 mls/hr Documented by: [id number] Admin: 03/29/19 20:08 Dose: 100 mls/hr Documented by: [id number] Infusion: 03/29/19 19:54 Dose: 100 mls/hr Documented by: [id number] Admin: 03/29/19 18:54 Dose: 100 mls/hr Documented by: [id number] Sodium Chloride (Nss 1000ml) 1,000 mls @ 999 mls/hr IV .Q1H1M ONE Stop: 03/29/19 19:18 Last Infusion: 03/29/19 20:15 Dose: 0 mls/hr Documented by: [id number] Admin: 03/29/19 18:54 Dose: 999 mls/hr Documented by: [id number] Ceftriaxone Sodium 2,000 mg/ (Dextrose) 70 mls @ 100 mls/hr IV Q24H [facility]; Protocol Stop: 04/08/19 17:59 Last Admin: 03/31/19 06:29 Dose: Not Given Documented by: [id number] Potassium Chloride/Sodium Chloride (Normal Saline W/20 Meq Kcl) 20 meq in 1,000 mls @ 125 mls/hr IV .Q8H [facility] Stop: 03/30/19 13:29 Last Admin: 03/30/19 06:16 Dose: 125 mls/hr Documented by: [id number] Infusion: 03/30/19 06:14 Dose: 125 mls/hr Documented by: [id number] Admin: 03/29/19 22:14 Dose: 125 mls/hr Documented by: [id number] Vancomycin HCl 1,500 mg/ (Sodium Chloride) 530 mls @ 200 mls/hr IV Q10H [facility]; Protocol Stop: 04/09/19 03:59 Last Admin: 03/31/19 06:30 Dose: Not Given Documented by: [id number] Admin: 03/31/19 06:29 Dose: Not Given Documented by: [id number] Infusion: 03/30/19 06:48 Dose: 0 mls/hr Documented by: [id number] Admin: 03/30/19 04:09 Dose: 200 mls/hr Documented by: [id number] Lorazepam (Ativan) 1 mg in 2 mls @ 2 mls/min IV NOW STA Stop: 03/30/19 12:43 Last Admin: 03/30/19 13:08 Dose: 2 mls/min Documented by: [id number] Vancomycin HCl 2,500 mg/ (Sodium Chloride) 550 mls @ 200 mls/hr IV TODAY@2100 [facility] Stop: 03/31/19 23:44 Last Infusion: 04/01/19 00:32 Dose: 0 mls/hr Documented by: [id number] Admin: 03/31/19 21:02 Dose: 200 mls/hr Documented by: [id number] Vancomycin HCl 1,500 mg/ (Sodium Chloride) 530 mls @ 200 mls/hr IV Q10H [facility] Stop: 04/11/19 05:59 Last Infusion: 04/01/19 08:06 Dose: 0 mls/hr Documented by: [id number] Admin: 04/01/19 05:16 Dose: 200 mls/hr Documented by: [id number] Ceftriaxone Sodium 2,000 mg/ (Dextrose) 70 mls @ 100 mls/hr IV Q24H [facility]; Protocol Stop: 04/11/19 07:59 Last Infusion: 04/03/19 08:17 Dose: 0 mls/hr Documented by: [id number] Admin: 04/03/19 07:30 Dose: 100 mls/hr Documented by: [id number] Infusion: 04/02/19 08:45 Dose: 0 mls/hr Documented by: [id number] Admin: 04/02/19 07:59 Dose: 100 mls/hr Documented by: [id number] Infusion: 04/01/19 08:50 Dose: 0 mls/hr Documented by: [id number] Admin: 04/01/19 08:06 Dose: 100 mls/hr Documented by: [id number] Vancomycin HCl 1,500 mg/ (Sodium Chloride) 530 mls @ 200 mls/hr IV Q12H [facility] Stop: 04/03/19 12:00 Last Infusion: 04/03/19 07:31 Dose: 0 mls/hr Documented by: [id number] Admin: 04/03/19 04:36 Dose: 200 mls/hr Documented by: [id number] Infusion: 04/02/19 21:51 Dose: 0 mls/hr Documented by: [id number] Admin: 04/02/19 18:35 Dose: 200 mls/hr Documented by: [id number] Infusion: 04/02/19 07:16 Dose: 0 mls/hr Documented by: [id number] Admin: 04/02/19 04:30 Dose: 200 mls/hr Documented by: [id number] Infusion: 04/01/19 20:24 Dose: 0 mls/hr Documented by: [id number] Admin: 04/01/19 17:06 Dose: 200 mls/hr Documented by: [id number] Heparin Sodium (Porcine) 7,000 (units/ Syringe) 7 mls @ 10 mls/min IV NOW ONE Stop: 04/01/19 13:31 Last Admin: 04/01/19 14:09 Dose: Not Given Documented by: [id number] Heparin Sodium/Dextrose (Heparin Sodium/Dextrose) 25,000 units in 500 mls @ 31 mls/hr IV .Q16H8M [facility]; Protocol Stop: 05/01/19 13:14 Last Admin: 04/01/19 14:20 Dose: Not Given Documented by: [id number] Lorazepam (Ativan) Confirm Administered Dose 2 mg .ROUTE .STK-MED ONE Stop: 03/30/19 12:47 Last Admin: 03/30/19 13:08 Dose: Not Given Documented by: [id number] Miscellaneous (Stop Order) 1 ea N/A ONE ONE Stop: 04/01/19 14:18 Last Admin: 04/01/19 15:10 Dose: 1 ea Documented by: [id number] Naloxone HCl (Narcan) 0.4 mg IV NOW STA Stop: 03/29/19 15:53 Last Admin: 03/29/19 15:59 Dose: 0.4 mg Documented by: [id number] Potassium Chloride (Klor-Con M20) 40 meq PO NOW STA Stop: 03/29/19 16:51 Last Admin: 03/29/19 18:19 Dose: Not Given Documented by: [id number] Medical Decision Making Differential Diagnosis Etiologies such as cellulitis, abscess, osteomyelitis, MRSA infection, DVT, necrotizing fasciitis, dermatitis, drug eruption, as well as others were entertained. Medical Records Attestation: I reviewed the patient's medical records. Home Medications Current Medication List: was personally reviewed by me Laboratory Data Attestation: I reviewed the patient's lab results. Result diagrams: 04/02/19 20:13 04/04/19 05:09 Lab Results 03/29/19 03/29/19 03/29/19 Range/Units 15:30 15:30 15:30 WBC 10.71 (4.8-10.8) K/uL RBC 4.65 L (4.7-6.1) M/uL Hgb 13.8 L (14.0-18.0) g/dL POC Hgb (14.0-18.0) g/dl Hct 39.4 L (42-52) % POC Hct (42-52) % MCV 84.7 (80-100) fL MCH 29.7 (25-34) pg MCHC 35.0 (32-36) g/dL RDW Std Deviation 42.7 (36.4-46.3) fL RDW Coeff of Christin 14.0 (11.5-14.5) % Plt Count 262 (130-400) K/uL MPV 9.2 (7.4-10.4) fL Immature Gran % (Auto) 0.2 % Neut % (Auto) 77.3 % Lymph % (Auto) 9.5 % Benson % (Auto) 11.9 % Eos % (Auto) 1.1 % Baso % (Auto) 0.0 % Immature Gran # (Auto) 0.02 (0.00-0.02) K/uL Neut # (Auto) 8.28 H (1.4-6.5) K/uL Lymph # (Auto) 1.02 L (1.2-3.4) K/uL Benson # (Auto) 1.27 H (0.11-0.59) K/uL Eos # (Auto) 0.12 (0-0.5) K/uL Baso # (Auto) 0.00 (0-0.2) K/uL PT 32.0 H (9.0-12.0) Seconds INR 3.4 H (0.9-1.1) VBG pH (7.36-7.41) VBG pCO2 (38-50) mmHg VBG pO2 mmHg VBG HCO3 mmol/L VBG O2 Saturation % VBG Base Excess mEq/L Barometric Pressure mm/Hg POC Sodium (135-144) mEq/L Sodium 138 (136-145) mmol/L POC Potassium (3.3-5.0) mEq/L Potassium 3.4 L (3.5-5.1) mmol/L POC Chloride (101-112) mEq/L Chloride 103 (98-107) mmol/L Carbon Dioxide 24 (21-32) mmol/L POC Total CO2 (24-31) mEq/l Anion Gap 11.0 (3-11) POC Anion Gap (16-25) mmol/L POC BUN (7-18) mg/dl BUN 26 H (7-18) mg/dl Creatinine 0.94 (0.6-1.4) mg/dl POC Creatinine (0.6-1.3) mg/dl Est Cr Clr Drug Dosing 99.3 ml/min Est GFR ( Amer) 101.0 Est GFR (Non-Af Amer) 87.2 BUN/Creatinine Ratio 28.1 H (10-20) Glucose 99 (70-99) mg/dl POC Glucose (other) (70-99) mg/dl Calcium 9.7 (8.5-10.1) mg/dl POC Ioniz Calcium Uyen (1.12-1.32) mmol/l Phosphorus (2.5-4.9) mg/dl Magnesium (1.8-2.4) mg/dl Total Bilirubin 1.0 (0.2-1) mg/dl AST 82 H (15-37) U/L ALT 72 (12-78) U/L Alkaline Phosphatase 56 (45-117) U/L Ammonia (11-32) umol/L Total Creatine Kinase (39-308) U/L CK-MB (CK-2) (0.5-3.6) ng/ml CK/CKMB % Calc (0-3.0) Troponin I (0-0.045) ng/ml Total Protein 7.6 (6.4-8.2) gm/dl Albumin 3.4 (3.4-5.0) gm/dl Globulin 4.2 H (2.5-4.0) gm/dl Albumin/Globulin Ratio 0.8 L (0.9-2) Vitamin B12 (211-911) pg/ml Folate (>5.38) ng/ml TSH 1.880 (0.300-4.500) uIu/ml Urine Color Urine Appearance (Clear) Urine pH (4.5-7.5) Ur Specific [place] (1.000-1.030) Urine Protein (Negative) Urine Glucose (UA) (Negative) Urine Ketones (Negative) Urine Blood (Negative) Urine Nitrite (Negative) Urine Bilirubin (Negative) Urine Urobilinogen (Negative) Ur Leukocyte Esterase (Negative) Urine Opiates Screen (Neg) Ur Methadone, Qual (Neg) Urine Barbiturates (Neg) Ur Phencyclidine (PCP) (Neg) U Amphetamin/Meth Scrn (Neg) MDMA (Ecstasy) Screen (Neg) U Benzodiazepines Scrn (Neg) Ur Cocaine Metabolite (Neg) U Marijuana (THC) Screen (Neg) Ethyl Alcohol mg/dL (0-3) mg/dl 03/29/19 03/29/19 03/29/19 Range/Units 15:30 16:14 16:16 WBC (4.8-10.8) K/uL RBC (4.7-6.1) M/uL Hgb (14.0-18.0) g/dL POC Hgb 14.3 (14.0-18.0) g/dl Hct (42-52) % POC Hct 42 (42-52) % MCV (80-100) fL MCH (25-34) pg MCHC (32-36) g/dL RDW Std Deviation (36.4-46.3) fL RDW Coeff of Christin (11.5-14.5) % Plt Count (130-400) K/uL MPV (7.4-10.4) fL Immature Gran % (Auto) % Neut % (Auto) % Lymph % (Auto) % Benson % (Auto) % Eos % (Auto) % Baso % (Auto) % Immature Gran # (Auto) (0.00-0.02) K/uL Neut # (Auto) (1.4-6.5) K/uL Lymph # (Auto) (1.2-3.4) K/uL Benson # (Auto) (0.11-0.59) K/uL Eos # (Auto) (0-0.5) K/uL Baso # (Auto) (0-0.2) K/uL PT (9.0-12.0) Seconds INR (0.9-1.1) VBG pH (7.36-7.41) VBG pCO2 (38-50) mmHg VBG pO2 mmHg VBG HCO3 mmol/L VBG O2 Saturation % VBG Base Excess mEq/L Barometric Pressure mm/Hg POC Sodium 138 (135-144) mEq/L Sodium (136-145) mmol/L POC Potassium 3.6 (3.3-5.0) mEq/L Potassium (3.5-5.1) mmol/L POC Chloride 103 (101-112) mEq/L Chloride (98-107) mmol/L Carbon Dioxide (21-32) mmol/L POC Total CO2 20 L (24-31) mEq/l Anion Gap (3-11) POC Anion Gap 19.0 (16-25) mmol/L POC BUN 26 H (7-18) mg/dl BUN (7-18) mg/dl Creatinine (0.6-1.4) mg/dl POC Creatinine 1.0 (0.6-1.3) mg/dl Est Cr Clr Drug Dosing ml/min Est GFR ( Amer) Est GFR (Non-Af Amer) BUN/Creatinine Ratio (10-20) Glucose (70-99) mg/dl POC Glucose (other) 105 H (70-99) mg/dl Calcium (8.5-10.1) mg/dl POC Ioniz Calcium Uyen 1.18 (1.12-1.32) mmol/l Phosphorus (2.5-4.9) mg/dl Magnesium (1.8-2.4) mg/dl Total Bilirubin (0.2-1) mg/dl AST (15-37) U/L ALT (12-78) U/L Alkaline Phosphatase (45-117) U/L Ammonia (11-32) umol/L Total Creatine Kinase 870 H (39-308) U/L CK-MB (CK-2) 18.5 H (0.5-3.6) ng/ml CK/CKMB % Calc 2.1 (0-3.0) Troponin I < 0.015 (0-0.045) ng/ml Total Protein (6.4-8.2) gm/dl Albumin (3.4-5.0) gm/dl Globulin (2.5-4.0) gm/dl Albumin/Globulin Ratio (0.9-2) Vitamin B12 (211-911) pg/ml Folate (>5.38) ng/ml TSH (0.300-4.500) uIu/ml Urine Color Urine Appearance (Clear) Urine pH (4.5-7.5) Ur Specific [place] (1.000-1.030) Urine Protein (Negative) Urine Glucose (UA) (Negative) Urine Ketones (Negative) Urine Blood (Negative) Urine Nitrite (Negative) Urine Bilirubin (Negative) Urine Urobilinogen (Negative) Ur Leukocyte Esterase (Negative) Urine Opiates Screen (Neg) Ur Methadone, Qual (Neg) Urine Barbiturates (Neg) Ur Phencyclidine (PCP) (Neg) U Amphetamin/Meth Scrn (Neg) MDMA (Ecstasy) Screen (Neg) U Benzodiazepines Scrn (Neg) Ur Cocaine Metabolite (Neg) U Marijuana (THC) Screen (Neg) Ethyl Alcohol mg/dL < 3.0 (0-3) mg/dl 03/29/19 03/29/19 03/29/19 Range/Units 21:10 21:10 21:10 WBC (4.8-10.8) K/uL RBC (4.7-6.1) M/uL Hgb (14.0-18.0) g/dL POC Hgb (14.0-18.0) g/dl Hct (42-52) % POC Hct (42-52) % MCV (80-100) fL MCH (25-34) pg MCHC (32-36) g/dL RDW Std Deviation (36.4-46.3) fL RDW Coeff of Christin (11.5-14.5) % Plt Count (130-400) K/uL MPV (7.4-10.4) fL Immature Gran % (Auto) % Neut % (Auto) % Lymph % (Auto) % Benson % (Auto) % Eos % (Auto) % Baso % (Auto) % Immature Gran # (Auto) (0.00-0.02) K/uL Neut # (Auto) (1.4-6.5) K/uL Lymph # (Auto) (1.2-3.4) K/uL Benson # (Auto) (0.11-0.59) K/uL Eos # (Auto) (0-0.5) K/uL Baso # (Auto) (0-0.2) K/uL PT (9.0-12.0) Seconds INR (0.9-1.1) VBG pH (7.36-7.41) VBG pCO2 (38-50) mmHg VBG pO2 mmHg VBG HCO3 mmol/L VBG O2 Saturation % VBG Base Excess mEq/L Barometric Pressure mm/Hg POC Sodium (135-144) mEq/L Sodium (136-145) mmol/L POC Potassium (3.3-5.0) mEq/L Potassium (3.5-5.1) mmol/L POC Chloride (101-112) mEq/L Chloride (98-107) mmol/L Carbon Dioxide (21-32) mmol/L POC Total CO2 (24-31) mEq/l Anion Gap (3-11) POC Anion Gap (16-25) mmol/L POC BUN (7-18) mg/dl BUN (7-18) mg/dl Creatinine (0.6-1.4) mg/dl POC Creatinine (0.6-1.3) mg/dl Est Cr Clr Drug Dosing ml/min Est GFR ( Amer) Est GFR (Non-Af Amer) BUN/Creatinine Ratio (10-20) Glucose (70-99) mg/dl POC Glucose (other) (70-99) mg/dl Calcium (8.5-10.1) mg/dl POC Ioniz Calcium Uyen (1.12-1.32) mmol/l Phosphorus 2.4 L (2.5-4.9) mg/dl Magnesium 1.9 (1.8-2.4) mg/dl Total Bilirubin (0.2-1) mg/dl AST (15-37) U/L ALT (12-78) U/L Alkaline Phosphatase (45-117) U/L Ammonia < 10.0 L (11-32) umol/L Total Creatine Kinase (39-308) U/L CK-MB (CK-2) (0.5-3.6) ng/ml CK/CKMB % Calc (0-3.0) Troponin I (0-0.045) ng/ml Total Protein (6.4-8.2) gm/dl Albumin (3.4-5.0) gm/dl Globulin (2.5-4.0) gm/dl Albumin/Globulin Ratio (0.9-2) Vitamin B12 1455 H (211-911) pg/ml Folate 16.47 (>5.38) ng/ml TSH (0.300-4.500) uIu/ml Urine Color Urine Appearance (Clear) Urine pH (4.5-7.5) Ur Specific [place] (1.000-1.030) Urine Protein (Negative) Urine Glucose (UA) (Negative) Urine Ketones (Negative) Urine Blood (Negative) Urine Nitrite (Negative) Urine Bilirubin (Negative) Urine Urobilinogen (Negative) Ur Leukocyte Esterase (Negative) Urine Opiates Screen (Neg) Ur Methadone, Qual (Neg) Urine Barbiturates (Neg) Ur Phencyclidine (PCP) (Neg) U Amphetamin/Meth Scrn (Neg) MDMA (Ecstasy) Screen (Neg) U Benzodiazepines Scrn (Neg) Ur Cocaine Metabolite (Neg) U Marijuana (THC) Screen (Neg) Ethyl Alcohol mg/dL (0-3) mg/dl 03/29/19 03/30/19 03/30/19 Range/Units 21:10 03:48 03:48 WBC (4.8-10.8) K/uL RBC (4.7-6.1) M/uL Hgb (14.0-18.0) g/dL POC Hgb (14.0-18.0) g/dl Hct (42-52) % POC Hct (42-52) % MCV (80-100) fL MCH (25-34) pg MCHC (32-36) g/dL RDW Std Deviation (36.4-46.3) fL RDW Coeff of Christin (11.5-14.5) % Plt Count (130-400) K/uL MPV (7.4-10.4) fL Immature Gran % (Auto) % Neut % (Auto) % Lymph % (Auto) % [place] % (Auto) % Eos % (Auto) % Baso % (Auto) % Immature Gran # (Auto) (0.00-0.02) K/uL Neut # (Auto) (1.4-6.5) K/uL Lymph # (Auto) (1.2-3.4) K/uL [place] # (Auto) (0.11-0.59) K/uL Eos # (Auto) (0-0.5) K/uL Baso # (Auto) (0-0.2) K/uL PT (9.0-12.0) Seconds INR (0.9-1.1) VBG pH 7.39 (7.36-7.41) VBG pCO2 44 (38-50) mmHg VBG pO2 25 mmHg VBG HCO3 26 mmol/L VBG O2 Saturation < 60.0 % VBG Base Excess 1.0 mEq/L Barometric Pressure 737.3 mm/Hg POC Sodium (135-144) mEq/L Sodium (136-145) mmol/L POC Potassium (3.3-5.0) mEq/L Potassium (3.5-5.1) mmol/L POC Chloride (101-112) mEq/L Chloride (98-107) mmol/L Carbon Dioxide (21-32) mmol/L POC Total CO2 (24-31) mEq/l Anion Gap (3-11) POC Anion Gap (16-25) mmol/L POC BUN (7-18) mg/dl BUN (7-18) mg/dl Creatinine (0.6-1.4) mg/dl POC Creatinine (0.6-1.3) mg/dl Est Cr Clr Drug Dosing ml/min Est GFR ( Amer) Est GFR (Non-Af Amer) BUN/Creatinine Ratio (10-20) Glucose (70-99) mg/dl POC Glucose (other) (70-99) mg/dl Calcium (8.5-10.1) mg/dl POC Ioniz Calcium [place] (1.12-1.32) mmol/l Phosphorus (2.5-4.9) mg/dl Magnesium (1.8-2.4) mg/dl Total Bilirubin (0.2-1) mg/dl AST (15-37) U/L ALT (12-78) U/L Alkaline Phosphatase (45-117) U/L Ammonia (11-32) umol/L Total Creatine Kinase (39-308) U/L CK-MB (CK-2) (0.5-3.6) ng/ml CK/CKMB % Calc (0-3.0) Troponin I (0-0.045) ng/ml Total Protein (6.4-8.2) gm/dl Albumin (3.4-5.0) gm/dl Globulin (2.5-4.0) gm/dl Albumin/Globulin Ratio (0.9-2) Vitamin B12 (211-911) pg/ml Folate (>5.38) ng/ml TSH (0.300-4.500) uIu/ml Urine Color Yellow Urine Appearance Clear (Clear) Urine pH 5.0 (4.5-7.5) Ur Specific [place] 1.021 (1.000-1.030) Urine Protein Negative (Negative) Urine Glucose (UA) Negative (Negative) Urine Ketones 2+ H (Negative) Urine Blood Negative (Negative) Urine Nitrite Negative (Negative) Urine Bilirubin Negative (Negative) Urine Urobilinogen Negative (Negative) Ur Leukocyte Esterase Negative (Negative) Urine Opiates Screen Neg (Neg) Ur Methadone, Qual Neg (Neg) Urine Barbiturates Neg (Neg) Ur Phencyclidine (PCP) Neg (Neg) U Amphetamin/Meth Scrn Neg (Neg) MDMA (Ecstasy) Screen Neg (Neg) U Benzodiazepines Scrn Neg (Neg) Ur Cocaine Metabolite Neg (Neg) U Marijuana (THC) Screen Neg (Neg) Ethyl Alcohol mg/dL (0-3) mg/dl 03/30/19 03/30/19 03/30/19 Range/Units 06:16 06:16 06:16 WBC 7.23 (4.8-10.8) K/uL RBC 4.60 L (4.7-6.1) M/uL Hgb 13.1 L (14.0-18.0) g/dL POC Hgb (14.0-18.0) g/dl Hct 39.7 L (42-52) % POC Hct (42-52) % MCV 86.3 (80-100) fL MCH 28.5 (25-34) pg MCHC 33.0 (32-36) g/dL RDW Std Deviation 44.1 (36.4-46.3) fL RDW Coeff of Christin 14.0 (11.5-14.5) % Plt Count 221 (130-400) K/uL MPV 8.8 (7.4-10.4) fL Immature Gran % (Auto) 0.1 % Neut % (Auto) 69.2 % Lymph % (Auto) 13.8 % [place] % (Auto) 13.8 % Eos % (Auto) 3.0 % Baso % (Auto) 0.1 % Immature Gran # (Auto) 0.01 (0.00-0.02) K/uL Neut # (Auto) 4.99 (1.4-6.5) K/uL Lymph # (Auto) 1.00 L (1.2-3.4) K/uL [place] # (Auto) 1.00 H (0.11-0.59) K/uL Eos # (Auto) 0.22 (0-0.5) K/uL Baso # (Auto) 0.01 (0-0.2) K/uL PT 38.3 H (9.0-12.0) Seconds INR 4.1 H (0.9-1.1) VBG pH (7.36-7.41) VBG pCO2 (38-50) mmHg VBG pO2 mmHg VBG HCO3 mmol/L VBG O2 Saturation % VBG Base Excess mEq/L Barometric Pressure mm/Hg POC Sodium (135-144) mEq/L Sodium 143 (136-145) mmol/L POC Potassium (3.3-5.0) mEq/L Potassium 4.1 D (3.5-5.1) mmol/L POC Chloride (101-112) mEq/L Chloride 110 H (98-107) mmol/L Carbon Dioxide 27 (21-32) mmol/L POC Total CO2 (24-31) mEq/l Anion Gap 6.0 (3-11) POC Anion Gap (16-25) mmol/L POC BUN (7-18) mg/dl BUN 15 (7-18) mg/dl Creatinine 0.88 (0.6-1.4) mg/dl POC Creatinine (0.6-1.3) mg/dl Est Cr Clr Drug Dosing 105.9 ml/min Est GFR ( Amer) 107.5 Est GFR (Non-Af Amer) 92.7 BUN/Creatinine Ratio 16.6 (10-20) Glucose 98 (70-99) mg/dl POC Glucose (other) (70-99) mg/dl Calcium 8.2 L D (8.5-10.1) mg/dl POC Ioniz Calcium Uyen (1.12-1.32) mmol/l Phosphorus (2.5-4.9) mg/dl Magnesium (1.8-2.4) mg/dl Total Bilirubin (0.2-1) mg/dl AST (15-37) U/L ALT (12-78) U/L Alkaline Phosphatase (45-117) U/L Ammonia (11-32) umol/L Total Creatine Kinase 491 H (39-308) U/L CK-MB (CK-2) (0.5-3.6) ng/ml CK/CKMB % Calc (0-3.0) Troponin I (0-0.045) ng/ml Total Protein (6.4-8.2) gm/dl Albumin (3.4-5.0) gm/dl Globulin (2.5-4.0) gm/dl Albumin/Globulin Ratio (0.9-2) Vitamin B12 (211-911) pg/ml Folate (>5.38) ng/ml TSH (0.300-4.500) uIu/ml Urine Color Urine Appearance (Clear) Urine pH (4.5-7.5) Ur Specific [place] (1.000-1.030) Urine Protein (Negative) Urine Glucose (UA) (Negative) Urine Ketones (Negative) Urine Blood (Negative) Urine Nitrite (Negative) Urine Bilirubin (Negative) Urine Urobilinogen (Negative) Ur Leukocyte Esterase (Negative) Urine Opiates Screen (Neg) Ur Methadone, Qual (Neg) Urine Barbiturates (Neg) Ur Phencyclidine (PCP) (Neg) U Amphetamin/Meth Scrn (Neg) MDMA (Ecstasy) Screen (Neg) U Benzodiazepines Scrn (Neg) Ur Cocaine Metabolite (Neg) U Marijuana (THC) Screen (Neg) Ethyl Alcohol mg/dL (0-3) mg/dl Imaging Data Radiologist's Impression: Radiology results as stated below per my review and the radiologist's interpretation: CT head/brain wo con CT DOSE: 537.48 mGy.cm HISTORY: Mental status change Pt c/o AMS TECHNIQUE: Multiaxial CT images of the head were performed without the use of intravenous contrast. A dose lowering technique was utilized adhering to the principles of ALARA. Comparison: None. Findings: The paranasal sinuses and mastoid air cells are clear. The calvarium and skull base are intact. The ventricles and sulci are within normal limits. There is no mass, hematoma, midline shift, or acute infarct. Impression: No acute intracranial abnormality. The above report was generated using voice recognition software. It may contain grammatical, syntax or spelling errors. Electronically signed by: Good Lozada M.D. 03/29/2019 4:32 PM US venous doppler LE RT CLINICAL HISTORY: Right lower extremity pain and swelling COMPARISON STUDY: February 2016 FINDINGS: No thrombus is visualized in the common femoral vein, or superior femoral vein.. There is nonocclusive thrombus within the popliteal vein. The thrombus appears to have some cystic spaces within it. It therefore may be subacute or chronic. It is less extensive than on the prior February 2016 study. Unfortunately there is no posttreatment baseline obtained. The calf veins appear patent as visualized. IMPRESSION: 1. Extensive nonocclusive thrombus within the popliteal vein. The chronicity of this thrombus is difficult to determine given the extensive DVT present on the prior February 2016 study as well as the somewhat lacelike appearance of the current thrombus. Electronically signed by: Ashu King M.D. 03/29/2019 5:46 PM XR chest 1V portable CLINICAL HISTORY: weakness COMPARISON STUDY: 03/19/2019 FINDINGS: The heart is the upper limits of normal in size. There is no failure. There is no lobar consolidation. There is mild basilar cistern prominence, likely atelectatic.[There are no significant pleural effusions IMPRESSION: 1. Slightly prominent basilar markings, likely atelectatic. No evidence of lobar consolidation Electronically signed by: Ashu King M.D. 03/29/2019 5:54 PM ECG Data Attestation: I personally reviewed and interpreted this ECG as follows: Indication: other (right lower extremity pain/swelling) Rate (beats per minute): 73 Rhythm: normal sinus Findings: + LAFB (normal EKG); no ST depression and no ST elevation Blood Pressure Blood Pressure Findings: Elevated blood pressure Blood Pressure Disposition: further management by hospitalist MDM Narrative This is a 59-year-old male who presents emergency department complaining of increasing leg pain. Patient does appear to have a DVT. He is on anticoagulation therefore I did discuss the case with the hospitalist service who agreed to admit the patient. Patient family were in agreement with the treatment plan. Impression & Plan Altered mental status, Cellulitis, Dehydration Discharge Plan Visit Data *Final* Discharge Date/Time: 03/29/19 20:18 Chief Complaint: Confusion Stated Complaint: UNRESPONSIVE ED Provider: [facility] Discharge Problem: Altered mental status, Cellulitis, Dehydration Patient Disposition: Admitted As Inpatient Discharge Instructions Interventions: ED Discharge Assessment Last Done: 03/29/19 20:18 The scribe's documentation has been prepared under my direction and personally reviewed by me in its entirety. I confirm that the note above accurately reflects all work, treatment, procedures, and medical decision making performed by me.
[2019-03-30 04:08] LABS: Appearance Urine Clear (Clear); Bilirubin Urine Negative (Negative); Blood Urine Negative (Negative); Color Urine Yellow; Glucose Urine UA Negative (Negative); Ketones Urine 2+ (Negative); Leukocyte Esterase Urine Negative (Negative); Nitrite Urine Negative (Negative); Protein Urine Negative (Negative); Specific Gravity Urine 1.021 (1.000-1.030); Urobilinogen Urine Negative (Negative)
[2019-03-30] MEDS: VANCOMYCIN HCL 1,500 MG in SODIUM CHLORIDE 0.9% 500 ML IV SCH (04:09)
[2019-03-30 04:27] LABS: Amphetamines+Metham, Urine Neg (Neg); Barbiturates, Urine Neg (Neg); Benzodiazepine, Urine Neg (Neg); Cocaine, Urine Neg (Neg); MDMA (Ecstacy), Urine Neg (Neg); Methadone, Urine Neg (Neg); Opiate, Urine Neg (Neg); Phencyclidine, Urine Neg (Neg)
[2019-03-30] MEDS: NSS + 20MEQ KCL 20 MEQ/1,000 ML BAG IV SCH (06:16)
[2019-03-30 06:36] LABS: Basophils # (auto) 0.01 K/uL (0-0.2); Basophils % (auto) 0.1 %; Eosinophils # (auto) 0.22 K/uL (0-0.5); Hematocrit (blood only) 39.7 % (42-52); Hemoglobin 13.1 g/dL (14.0-18.0); Immature Granulocytes # (auto) 0.01 K/uL (0.00-0.02); Immature Granulocytes % (auto) 0.1 %; Lymphocytes % (auto) 13.8 %; Mean Corpuscular Volume 86.3 fL (80-100); Mean Platelet Volume 8.8 fL (7.4-10.4); Monocytes % (auto) 13.8 %; Neutrophils # (auto) 4.99 K/uL (1.4-6.5); Neutrophils % (auto) 69.2 %; Platelet Count 221 K/uL (130-400); RDW Standard Deviation 44.1 fL (36.4-46.3); White Blood Count 7.23 K/uL (4.8-10.8)
[2019-03-30 06:55] LABS: INR 4.1 (0.9-1.1); Prothrombin Time 38.3 Seconds (9.0-12.0)
[2019-03-30 07:07] LABS: BUN Creatinine Ratio 16.6 (10-20); Calcium 8.2 mg/dl (8.5-10.1); Creatinine Clr Calc Pharmacy 105.9 ml/min; Est GFR (African American) 107.5; Est GFR (Non-African American) 92.7; Potassium 4.1 mmol/L (3.5-5.1)
--- NOTE | 2019-03-30 08:56 | Family Medicine Progress Note ---
Date of Service March 30, 2019 Assessment & Plan (1) Cellulitis: Mr. Lee Wood is a 59 year old male with history of MDD, Factor V Leiden with prior DVT/PE on Coumadin anticoagulation, prior suicide attempt via overdose on OTC sleep meds, who was unresponsive to wellness check. ER Course: Benztropine, Ceftriaxone, Naloxone, KCL, NSS He is not participating in history of physical exam. He is not answering questions. His cellulitis of his right LE with erythema that appears receding with IV antibiotic treatment. Will continue with current antibiotic treatment and IVF. - Continue with Rocephin and Vanc - IVFs (2) Altered mental status: Significant psychiatric history with prior suicide attempts. Is not responding during interaction, but this appears voluntary. Pysch consult placed Tox screen negative for drugs, alcohol, Salicylates, Acetaminophen, Alcohol Ammonia WNL, B12 elevated, Folate WNL CT Head NAD Neuro checks q4h (3) DVT (deep venous thrombosis): US in ED of RLE showed Extensive nonocclusive thrombus within the popliteal vein. The chronicity of this thrombus is difficult to determine given the extensive DVT present on the prior February 2016 study as well as the somewhat lacelike appearance of the current thrombus. His INR on 03/30 was 4.1, will hold coumadin. (4) Factor V Leiden mutation: H/o DVT/PE (5) Depression: Recent Psychiatric admission from 02/17/19 - 03/09/19 for for recurrent, severe MDD with psychosis s/p intentional OD with OTC sleep medications. - continue with Bupropion; SSRI Zoloft and Trazodone being held as history of pill OD and concerns for serotonin syndrome although unlikely as no clonus, fever, elevated BP. Will wait for psych recs. Supervising Physician Co-Signing Physician Notes Attending attestation Pt seen and examined in concert with Dr. Perales. In agreement with the documented findings as noted in the resident documentation with any exceptions or additions as noted here. On evaluation, patient either refusing to interact/somnolent or agitated and disorganized. Refuses examination and threatens to break both my legs. Cellulitis - continue IV abx therapy and follow up BCx Delirium in the setting of severe depression - psychiatry consultation - toxicol ogy screen, restart sertraline Supratherapeutic INR w/ DVT, chronic, FVL - hold warfarin x 2 days, continue to monitor, consider restart at 10% decreased dose Else see resident documentation as noted. Subjective Caveat: History limited by - Poor cooperation, does not respond to questions. Mr. Wood does not respond to questioning. He keeps his eyes closed. Review of Systems Review of Systems: Unobtainable due to cognitive status Physical Exam Constitutional: WD/WN, vitals as above + uncooperative Respiratory: normal respiratory effort, lungs clear to auscultation Cardiovascular: Rate/Rhythm: regular rate and regular rhythm Musculoskeletal: Head/Neck/Chest: normocephalic and head atraumatic right lower extremity with no expanding erythema past drawn borders; there is increased in warmth. erythema, edema; from proximal 1/3 of right lower leg to foot Neurologic: voluntarily tightens eyelids when trying to assess pupils Psychiatric: Orientation: + not alert and + uncooperative Results & Data Vital Signs (Past 12 Hours) Vital Signs Temp Pulse Resp BP Pulse Ox 03/30/19 07:26 36.9 C 73 16 123/73 96 03/30/19 00:10 36.7 C 73 18 112/73 96 03/29/19 21:10 36.9 C 90 18 153/77 H 100 Laboratory Results Laboratory Results - last 24 hr 03/29/19 03/29/19 03/29/19 15:30 15:30 15:30 WBC 10.71 RBC 4.65 L Hgb 13.8 L POC Hgb Hct 39.4 L POC Hct MCV 84.7 MCH 29.7 MCHC 35.0 RDW Std Deviation 42.7 RDW Coeff of Christin 14.0 Plt Count 262 MPV 9.2 Immature Gran % (Auto) 0.2 Neut % (Auto) 77.3 Lymph % (Auto) 9.5 [place] % (Auto) 11.9 Eos % (Auto) 1.1 Baso % (Auto) 0.0 Immature Gran # (Auto) 0.02 Neut # (Auto) 8.28 H Lymph # (Auto) 1.02 L [place] # (Auto) 1.27 H Eos # (Auto) 0.12 Baso # (Auto) 0.00 PT 32.0 H INR 3.4 H VBG pH VBG pCO2 VBG pO2 VBG HCO3 VBG O2 Saturation VBG Base Excess Barometric Pressure POC Sodium Sodium 138 POC Potassium Potassium 3.4 L POC Chloride Chloride 103 Carbon Dioxide 24 POC Total CO2 Anion Gap 11.0 POC Anion Gap POC BUN BUN 26 H Creatinine 0.94 POC Creatinine Est Cr Clr Drug Dosing 99.3 Est GFR ( Amer) 101.0 Est GFR (Non-Af Amer) 87.2 BUN/Creatinine Ratio 28.1 H Glucose 99 POC Glucose (other) Calcium 9.7 POC Ioniz Calcium Uyen Phosphorus Magnesium Total Bilirubin 1.0 AST 82 H ALT 72 Alkaline Phosphatase 56 Ammonia Total Creatine Kinase CK-MB (CK-2) CK/CKMB % Calc Troponin I Total Protein 7.6 Albumin 3.4 Globulin 4.2 H Albumin/Globulin Ratio 0.8 L Vitamin B12 Folate TSH 1.880 Urine Color Urine Appearance Urine pH Ur Specific [place] Urine Protein Urine Glucose (UA) Urine Ketones Urine Blood Urine Nitrite Urine Bilirubin Urine Urobilinogen Ur Leukocyte Esterase Urine Opiates Screen Ur Methadone, Qual Urine Barbiturates Ur Phencyclidine (PCP) U Amphetamin/Meth Scrn MDMA (Ecstasy) Screen U Benzodiazepines Scrn Ur Cocaine Metabolite U Marijuana (THC) Screen Ethyl Alcohol mg/dL 03/29/19 03/29/19 03/29/19 15:30 16:14 16:16 WBC RBC Hgb POC Hgb 14.3 Hct POC Hct 42 MCV MCH MCHC RDW Std Deviation RDW Coeff of Christin Plt Count MPV Immature Gran % (Auto) Neut % (Auto) Lymph % (Auto) [place] % (Auto) Eos % (Auto) Baso % (Auto) Immature Gran # (Auto) Neut # (Auto) Lymph # (Auto) [place] # (Auto) Eos # (Auto) Baso # (Auto) PT INR VBG pH VBG pCO2 VBG pO2 VBG HCO3 VBG O2 Saturation VBG Base Excess Barometric Pressure POC Sodium 138 Sodium POC Potassium 3.6 Potassium POC Chloride 103 Chloride Carbon Dioxide POC Total CO2 20 L Anion Gap POC Anion Gap 19.0 POC BUN 26 H BUN Creatinine POC Creatinine 1.0 Est Cr Clr Drug Dosing Est GFR ( Amer) Est GFR (Non-Af Amer) BUN/Creatinine Ratio Glucose POC Glucose (other) 105 H Calcium POC Ioniz Calcium Uyen 1.18 Phosphorus Magnesium Total Bilirubin AST ALT Alkaline Phosphatase Ammonia Total Creatine Kinase 870 H CK-MB (CK-2) 18.5 H CK/CKMB % Calc 2.1 Troponin I < 0.015 Total Protein Albumin Globulin Albumin/Globulin Ratio Vitamin B12 Folate TSH Urine Color Urine Appearance Urine pH Ur Specific [place] Urine Protein Urine Glucose (UA) Urine Ketones Urine Blood Urine Nitrite Urine Bilirubin Urine Urobilinogen Ur Leukocyte Esterase Urine Opiates Screen Ur Methadone, Qual Urine Barbiturates Ur Phencyclidine (PCP) U Amphetamin/Meth Scrn MDMA (Ecstasy) Screen U Benzodiazepines Scrn Ur Cocaine Metabolite U Marijuana (THC) Screen Ethyl Alcohol mg/dL < 3.0 03/29/19 03/29/19 03/29/19 21:10 21:10 21:10 WBC RBC Hgb POC Hgb Hct POC Hct MCV MCH MCHC RDW Std Deviation RDW Coeff of Christin Plt Count MPV Immature Gran % (Auto) Neut % (Auto) Lymph % (Auto) [place] % (Auto) Eos % (Auto) Baso % (Auto) Immature Gran # (Auto) Neut # (Auto) Lymph # (Auto) [place] # (Auto) Eos # (Auto) Baso # (Auto) PT INR VBG pH VBG pCO2 VBG pO2 VBG HCO3 VBG O2 Saturation VBG Base Excess Barometric Pressure POC Sodium Sodium POC Potassium Potassium POC Chloride Chloride Carbon Dioxide POC Total CO2 Anion Gap POC Anion Gap POC BUN BUN Creatinine POC Creatinine Est Cr Clr Drug Dosing Est GFR ( Amer) Est GFR (Non-Af Amer) BUN/Creatinine Ratio Glucose POC Glucose (other) Calcium POC Ioniz Calcium Uyen Phosphorus 2.4 L Magnesium 1.9 Total Bilirubin AST ALT Alkaline Phosphatase Ammonia < 10.0 L Total Creatine Kinase CK-MB (CK-2) CK/CKMB % Calc Troponin I Total Protein Albumin Globulin Albumin/Globulin Ratio Vitamin B12 1455 H Folate 16.47 TSH Urine Color Urine Appearance Urine pH Ur Specific [place] Urine Protein Urine Glucose (UA) Urine Ketones Urine Blood Urine Nitrite Urine Bilirubin Urine Urobilinogen Ur Leukocyte Esterase Urine Opiates Screen Ur Methadone, Qual Urine Barbiturates Ur Phencyclidine (PCP) U Amphetamin/Meth Scrn MDMA (Ecstasy) Screen U Benzodiazepines Scrn Ur Cocaine Metabolite U Marijuana (THC) Screen Ethyl Alcohol mg/dL 03/29/19 03/30/19 03/30/19 21:10 03:48 03:48 WBC RBC Hgb POC Hgb Hct POC Hct MCV MCH MCHC RDW Std Deviation RDW Coeff of Christin Plt Count MPV Immature Gran % (Auto) Neut % (Auto) Lymph % (Auto) [place] % (Auto) Eos % (Auto) Baso % (Auto) Immature Gran # (Auto) Neut # (Auto) Lymph # (Auto) [place] # (Auto) Eos # (Auto) Baso # (Auto) PT INR VBG pH 7.39 VBG pCO2 44 VBG pO2 25 VBG HCO3 26 VBG O2 Saturation < 60.0 VBG Base Excess 1.0 Barometric Pressure 737.3 POC Sodium Sodium POC Potassium Potassium POC Chloride Chloride Carbon Dioxide POC Total CO2 Anion Gap POC Anion Gap POC BUN BUN Creatinine POC Creatinine Est Cr Clr Drug Dosing Est GFR ( Amer) Est GFR (Non-Af Amer) BUN/Creatinine Ratio Glucose POC Glucose (other) Calcium POC Ioniz Calcium [place] Phosphorus Magnesium Total Bilirubin AST ALT Alkaline Phosphatase Ammonia Total Creatine Kinase CK-MB (CK-2) CK/CKMB % Calc Troponin I Total Protein Albumin Globulin Albumin/Globulin Ratio Vitamin B12 Folate TSH Urine Color Yellow Urine Appearance Clear Urine pH 5.0 Ur Specific [place] 1.021 Urine Protein Negative Urine Glucose (UA) Negative Urine Ketones 2+ H Urine Blood Negative Urine Nitrite Negative Urine Bilirubin Negative Urine Urobilinogen Negative Ur Leukocyte Esterase Negative Urine Opiates Screen Neg Ur Methadone, Qual Neg Urine Barbiturates Neg Ur Phencyclidine (PCP) Neg U Amphetamin/Meth Scrn Neg MDMA (Ecstasy) Screen Neg U Benzodiazepines Scrn Neg Ur Cocaine Metabolite Neg U Marijuana (THC) Screen Neg Ethyl Alcohol mg/dL 03/30/19 03/30/19 03/30/19 06:16 06:16 06:16 WBC 7.23 RBC 4.60 L Hgb 13.1 L POC Hgb Hct 39.7 L POC Hct MCV 86.3 MCH 28.5 MCHC 33.0 RDW Std Deviation 44.1 RDW Coeff of Christin 14.0 Plt Count 221 MPV 8.8 Immature Gran % (Auto) 0.1 Neut % (Auto) 69.2 Lymph % (Auto) 13.8 [place] % (Auto) 13.8 Eos % (Auto) 3.0 Baso % (Auto) 0.1 Immature Gran # (Auto) 0.01 Neut # (Auto) 4.99 Lymph # (Auto) 1.00 L [place] # (Auto) 1.00 H Eos # (Auto) 0.22 Baso # (Auto) 0.01 PT 38.3 H INR 4.1 H VBG pH VBG pCO2 VBG pO2 VBG HCO3 VBG O2 Saturation VBG Base Excess Barometric Pressure POC Sodium Sodium 143 POC Potassium Potassium 4.1 D POC Chloride Chloride 110 H Carbon Dioxide 27 POC Total CO2 Anion Gap 6.0 POC Anion Gap POC BUN BUN 15 Creatinine 0.88 POC Creatinine Est Cr Clr Drug Dosing 105.9 Est GFR ( Amer) 107.5 Est GFR (Non-Af Amer) 92.7 BUN/Creatinine Ratio 16.6 Glucose 98 POC Glucose (other) Calcium 8.2 L D POC Ioniz Calcium [place] Phosphorus Magnesium Total Bilirubin AST ALT Alkaline Phosphatase Ammonia Total Creatine Kinase 491 H CK-MB (CK-2) CK/CKMB % Calc Troponin I Total Protein Albumin Globulin Albumin/Globulin Ratio Vitamin B12 Folate TSH Urine Color Urine Appearance Urine pH Ur Specific [place] Urine Protein Urine Glucose (UA) Urine Ketones Urine Blood Urine Nitrite Urine Bilirubin Urine Urobilinogen Ur Leukocyte Esterase Urine Opiates Screen Ur Methadone, Qual Urine Barbiturates Ur Phencyclidine (PCP) U Amphetamin/Meth Scrn MDMA (Ecstasy) Screen U Benzodiazepines Scrn Ur Cocaine Metabolite U Marijuana (THC) Screen Ethyl Alcohol mg/dL Medications Administered Bupropion HCl (Wellbutrin-Sr) 100 mg PO DAILY SETH Stop: 04/29/19 08:59 Last Admin: 03/30/19 10:45 Dose: Not Given Documented by: [id number] Potassium Chloride/Sodium Chloride (Normal Saline W/20 Meq Kcl) 20 meq in 1,000 mls @ 125 mls/hr IV .Q8H SETH Stop: 03/30/19 13:29 Last Admin: 03/30/19 06:16 Dose: 125 mls/hr Documented by: [id number] Infusion: 03/30/19 06:14 Dose: 125 mls/hr Documented by: [id number] Admin: 03/29/19 22:14 Dose: 125 mls/hr Documented by: [id number] Vancomycin HCl 1,500 mg/ (Sodium Chloride) 530 mls @ 200 mls/hr IV Q10H SETH; Protocol Stop: 04/09/19 03:59 Last Infusion: 03/30/19 06:48 Dose: 0 mls/hr Documented by: [id number] Admin: 03/30/19 04:09 Dose: 200 mls/hr Documented by: [id number] PG Care Time/CCT Total # of Minutes Spent Total Time Spent with Patient: Total time spent is greater than 50% in coordination of care (as documented) at patient's floor/unit and/or counseling patient: Resident Activity Tracking Resident Involvement: Resident Care Provided Care Provided: Adult [facility] Medicine (1) DVT (deep venous thrombosis) DVT location: lower extremity (2) Cellulitis Laterality: right Site of cellulitis: extremity Site of cellulitis of extremity: lower extremity Qualified Code(s): L03.115 - Cellulitis of right lower limb (3) Depression Active/Remission status: currently active Depression Type: major depressive disorder Major depression episode severity: severe Major depression recurrence: recurrent Psychotic features: with psychotic features Qualified Code(s): F33.3 - Major depressive disorder, recurrent, severe with psychotic symptoms (4) Altered mental status Altered mental status type: unspecified Qualified Code(s): R41.82 - Altered mental status, unspecified
[2019-03-30] MEDS ORDERED: SERTRALINE HCL 100 MG TABLET PO SCH (09:00)
[2019-03-30] MEDS ORDERED: BuPROPion SR 100 MG TABCR PO SCH (09:00)
[2019-03-30] MEDS: BuPROPion SR 100 MG TABCR PO SCH (10:45)
[2019-03-30] MEDS ORDERED: LORazepam 1 MG/2 ML VIAL IV STA (12:42)
[2019-03-30] MEDS ORDERED: LORazepam 2 MG/4 ML VIAL ONE (12:46)
--- NOTE | 2019-03-30 16:22 | Psychiatric Consultation ---
Date of Consultation March 30, 2019 Impression / Recommendations Impression Mr. Romero is a 59-year-old single male with a history of psychotic depression and multiple medical problems who presents with altered mental status, depression, anxiety, somatic delusions, and periods of unresponsiveness. This is unlike his previous episodes of psychotic depression in that he is more disorganized and is unresponsive at times. This could be due to his infection and medical issues, related to delirium, although psychotic depression and catatonia are also on the differential. I think serotonin syndrome is less likely given that he lacks hyperthermia, agitation, dilated pupils, tremor, akathisia, positive Babinski signs, flushing and diaphoresis. (1) Altered mental status: 03/30 -likely multifactorial with differential as above. -We will continue to monitor as his infection improves. Altered mental status type: unspecified Qualified Code(s): R41.82 - Altered mental status, unspecified Present on Admission?: Yes (2) Depression: 03/30 -discussed with primary attending, Dr. Anaya. Continue home dose of bupropion and will resume sertraline as I have a low suspicion for serotonin syndrome. Will continue to hold trazodone and buspirone for now, as it is uncle ar to me if he was compliant with medications at home and want to minimize excessive medications due to fragility at this time. -Patient has done well with quetiapine in the past, which could be helpful now to target both chronic delusions as well as confusion and rumination. Will order 50 mg at bedtime and 25 mg every 4 hours as needed during the day as needed. -Get records from outpatient psychiatrist Dr. Harrington. -Thank you for the consult, we will continue to follow. Active/Remission status: remission status unspecified Depression Type: major depressive disorder Major depression recurrence: recurrent Qualified Code(s): F33.9 - Major depressive disorder, recurrent, unspecified Present on Admission?: Yes Psych History Identifying Data YINKA ROMERO is a 58-year-old M who currently lives in an [place] alone, has a history of recurrent, severe depression with psychosis, anxiety NOS, factor V Leiden mutation, and history of DVT/PE on chronic anticoagulation who is hospitalized medically for altered mental status, DVT, and cellulitis. Psychiatry was consulted for altered mental status and concern for serotonin syndrome. Chief Complaint "I made a mistake, what I told you about the genes, I actually got all the good genes". History of Present Illness Patient is well-known to me from several previous hospitalizations, most recently on psychiatric inpatient unit from 02/17/19 - 03/09/19 for for recurrent, severe MDD with psychosis s/p intentional OD with OTC sleep medications. He was discharged on sertraline 200 mg, with [place] [facility] [place] and therapy at [facility] with Juan Menendez. He is presented to the ER several times in the 2 weeks since discharge; he presented 03/19/2019 with complaints of head pain, neck pain, cold all over, chills, and lightheadedness. His sister in law stated he had continued to struggle and had called her that day stating he was dying. She was concerned that he was not eating or taking his medications properly. He was seen by the ER site geriatric case manager and reported that he had been diagnosed with diabetes, although medical records did not support that. He was ultimately discharged home. He returned to the ER 03/24/2019 reporting that he has diabetes and is losing his hearing and eyesight, had no feeling in his legs, and was sleeping poorly. He was again seen by the ER site geriatric case manager and was focused on having diabetes as well as multiple other medical problems, saying he could not even walk his health was so poor. He denied suicidal thoughts, but reported ongoing loneliness, and refused voluntary psychiatric hospitalization, so was discharged home. Yesterday he presented to the ER with confusion and persistent right lower extremity pain and swelling x2 days. His [id number] was concerned about the state of his right lower extremity, so contacted his geriatric case manager, who went to the patient's house. The patient did not answer the door, so police were notified. They entered the home and interacted with the patient, who was initially responsive, but at some point stopped responding to them, so was brought into the hospital. In the ER, he was nonverbal but awake and alert, followed commands, and was found to have extensive nonocclusive thrombus in the popliteal vein of the right lower extremity. He had a head CT which was normal, and chest x-ray which showed slightly prominent basilar markings. Laboratory data was notable normal WBCs, INR of 4.1, potassium of 3.4 but electrolytes otherwise normal, and UA with 2+ ketones. UDS was negative. He is also been diagnosed with cellulitis of the right lower extremity, and was started on Rocephin and vancomycin. IV fluids were started for dehydration, and Coumadin was held due to supratherapeutic INR. His home psychotropic medications include bupropion, sertraline, trazodone, and buspirone; sertraline and trazodone were held due to concerns for serotonin fever although this was thought to be unlikely due to lack of clonus, fever, hypertension. Per the primary attending, earlier today he was nonverbal and unresponsive to painful stimuli. Case management spoke with his MH/ID geriatric case manager, Av Perez, who reports the patient continues under a 304 involuntary outpatient commitment. His geriatric case manager accompanies him to outpatient appointments, and when he saw the patient last week, he reported problems with "cold extremities." The family has been exploring personal correction placement (looked into [facility]), as they are concerned he cannot live independently. On my assessment, the patient initially does not respond to multiple questions, sitting on the edge of his bed with his head in his hands looking at the floor. After a period of unresponsiveness, he then starts talking, but does not answer questions posed to him, and instead talking about his long-standing belief that he received the bad genes in his family, while all the other family members got the good genes, and that this has caused all of his problems. He initially states that he made a mistake and he actually got all the good genes, refers to himself as a "super genius," and said that he had his IQ tested and it was over 200. He vacillates between talking about himself in this way, and making derogatory statements about himself. He talks about the [place] "perfecting the body," what a good athlete he was, stating he "could've sent records galore, but I didn't play." He says his father also had a good genes, and did not age, "his organs were like a 20-year-old's." He then starts talking about "eating gayle," and how this caused him to get diabetes, and now he is going to . At one point he says that he is going to be within the next couple of minutes. He vacillates back and forth between talking about how terrible his life is, the horrible mistakes he has made, and his imminent , and mid sentence which is and is talking about being a "super genius, I am still 20 years old by age, could still make millions." He denies suicidal thoughts, stating "when you are going to , you do not need any." He cannot tell me if he has been compliant with his medications at home, stating that he takes "some of them." He thinks he is here in the hospital for "diabetes." No evidence of hallucinations or HI. Past Psychiatric History Previous Psych Admissions: 3 to [facility], most recently discharged 03/09/2019 after treatment for severe depression with psychosis and anxiety History of Previous Suicide Attempt: Yes Describe Attempts in the Past: Overdose on [id number] sleep medications in 01/2019 Past Medication Trials: Quetiapine -discharged on 200 mg at bedtime at the time of 12/2015 hospitalization Sertraline -discharged on 200 mg daily in 12/2015 Bupropion Clonazepam Hydroxyzine Allergies Allergy/AdvReac Type Severity Reaction Status Date / Time rivaroxaban Allergy Severe tongue Verified 03/09/19 12:20 swelled, hands swelled, redness, itching Home Medications Home Medications Medication Instructions Recorded Confirmed Type simvastatin 40 mg tablet 40 mg PO HS #30 tab 02/15/19 03/29/19 Rx minocycline 100 mg capsule 100 mg PO DAILY #30 cap 03/09/19 03/29/19 Rx sertraline 200 mg PO QAM #60 tab 03/09/19 03/29/19 Rx bupropion HCl [Wellbutrin SR] 100 mg PO DAILY 03/29/19 03/29/19 History buspirone 10 mg PO TID 03/29/19 03/29/19 History trazodone 100 mg PO HS PRN 03/29/19 03/29/19 History warfarin 5 - 10 mg PO UD 03/29/19 03/29/19 History Family History None Substance Abuse History Patient denies, no substance abuse history known. Personal History Living Arrangements: Apartment Living Arrangements Comments: Alone in an [place] Childhood: Grew up locally, raised by both parents who are now . He has a twin brother, 2 other brothers, and a sister. Siblings live in [facility], and twin brother a couple hours away. Highest Grade Completed: High School Graduate Highest Grade Completed Comment: [employer]. 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 He was laid off, and then worked a variety of other jobs. Last worked >3 years ago at [employer], now retired and on disability. Employment Status: Unemployed Marital Status: Single Number Of Children: 0 Beliefs That Will Affect Care: None History of Legal Problems: Denies Psychological Trauma History Comment: Denies Patient History Medical History Impaired fasting glucose (Acute) Hyperlipidemia (Acute) Factor V Leiden mutation (Acute) DVT (deep venous thrombosis) (Acute) Depression (Chronic) Bilateral pulmonary embolism Right heart failure due to pulmonary hypertension Left shoulder pain (Resolved) Surgical History No pertinent past surgical history Family History Other No pertinent family history Social History Preferred Language: Estonian Communication Ability: Impaired Communication Ability Comment: unable to document, pt nonverbal at this time, no family in room Visual Impairment: No Limitations Hearing Ability: Normal Stencil Cutter Required: No Beliefs That Will Affect Care: None Current Living Situation: Alone Current Living Situation Comment: unable to document, pt nonverbal at this time, no family in room Feels Safe at Home: Yes Smoking Status: Unknown if ever smoked Physical Exam Psychiatric: Orientation: alert Oriented to year, unable to maintain attention to answer further orientation questions. Unkempt, malodorous. Dressed in a hospital gown, seated on the edge of the bed in no acute distress, bent over holding his head in his hands. Right lower extremity is swollen and erythematous. Eye Contact: + poor eye contact Insight: + severely impaired insight Judgement: + severely impaired judgement Mild muscular rigidity in bilateral upper extremities, complicated by patient not following instructions to relax. Babinski on left lower extremity is negative (RLE not checked due to cellulitis). Pupils normal size. No diaphoresis. No tremor at rest, very fine mild tremor bilateral upper extremities with outstretched hands. Vital Signs (Past 24 Hours): Last Vital Signs Temp 36.9 C 03/30/19 07:26 Pulse 73 03/30/19 07:26 Resp 16 03/30/19 07:26 BP 123/73 03/30/19 07:26 Pulse Ox 96 03/30/19 07:26 Review of Systems Unobtainable due to cognitive status Results & Data Medications Administered Bupropion HCl (Wellbutrin-Sr) 100 mg PO DAILY [facility] Stop: 04/29/19 08:59 Last Admin: 03/30/19 10:45 Dose: Not Given Documented by: [id number] Vancomycin HCl 1,500 mg/ (Sodium Chloride) 530 mls @ 200 mls/hr IV Q10H SETH; Protocol Stop: 04/09/19 03:59 Last Infusion: 03/30/19 06:48 Dose: 0 mls/hr Documented by: [id number] Admin: 03/30/19 04:09 Dose: 200 mls/hr Documented by: [id number]
[2019-03-30] MEDS ORDERED: QUETIAPINE FUMARATE 25 MG TABLET PO PRN (16:28)
[2019-03-30] MEDS ORDERED: cefTRIAXone SODIUM 2,000 MG in DEXTROSE 5% 50 ML IV SCH (18:00)
[2019-03-30] MEDS: QUETIAPINE FUMARATE 25 MG TABLET PO SCH (21:12)
[2019-03-31] MEDS: VANCOMYCIN HCL 1,500 MG in SODIUM CHLORIDE 0.9% 500 ML IV SCH ×2 (06:29→06:30)
--- NOTE | 2019-03-31 08:47 | XRay Report ---
XR tibia fibula RT 2V CLINICAL HISTORY: Cellulitis. Possible osteomyelitis. COMPARISON: None. DISCUSSION: 3 AP views are provided for interpretation. The patient refused lateral views. There is d iffuse soft tissue edema. No fractures are visualized. No destructive lesions are evident on this AP study. IMPRESSION: 1. AP only examination. The patient refused lateral views 2. No fractures identified 3. No destructive lesions identified Electronically signed by: Ashu King M.D. 03/31/2019 8:46 AM
[2019-03-31] MEDS ORDERED: VANCOMYCIN TROUGH ONE (09:30)
--- NOTE | 2019-03-31 11:02 | Psychiatric Progress Note ---
Date of Service March 31, 2019 Impression / Recommendations Impression Mr. Wood is a 59-year-old single male with a history of psychotic depression and multiple medical problems who presents with altered mental status, depression, anxiety, somatic delusions, and periods of unresponsiveness. This is unlike his previous episodes of psychotic depression in that he is more agitated and disorganized disorganized and, and has had periods of unresponsiveness. The differential includes delirium due to infection and medical issues, catatonia, and severely decompensated psychotic depression. He lacks capacity to refuse the recommended treatment at this time, as he is unable to understand the relevant information about his treatment and the risks and benefits, reason about treatment options, or appreciate the situation and its consequences. Recommend that on alternative medical decision maker be appointed. (1) Altered mental status: 03/30 -likely multifactorial with differential as above. -We will continue to monitor as his infection improves. 03/31 -patient more agitated, uncooperative with the assessment, refusing all treatment including antibiotics and psychotropic medications. -Lorazepam IM may be helpful for agitation and anxiety, and haloperidol 5-10 mg IM for severe agitation or psychosis. (2) Depression: 03/30 -discussed with primary attending, Dr. Anaya. Continue home dose of bupropion and will resume sertraline as I have a low suspicion for serotonin syndrome. Will continue to hold trazodone and buspirone for now, as it is unclear to me if he was compliant with medications at home and want to minimize excessive medications due to fragility at this time. -Patient has done well with quetiapine in the past, which could be helpful now to target both chronic delusions as well as confusion and rumination. Will order 50 mg at bedtime and 25 mg every 4 hours as needed during the day as needed. -Get records from outpatient psychiatrist Dr. Harrington. -Thank you for the consult, we will continue to follow. 03/31-patient is now refusing all p.o. medications. Continue to offer quetiapine if he will accept oral medications, otherwise recommend IM medications as above. Risk Factors Assessment Do You Have Access To A Gun?: No Interval History Identifying Information YINKA WOOD is a 58-year-old M who currently lives in an [place] alone, has a history of recurrent, severe depression with psychosis, anxiety NOS, factor V Leiden mutation, and history of DVT/PE on chronic anticoagulation who is hospitalized medically for altered mental status, DVT, and cellulitis. Psychiatry was consulted for altered mental status and concern for serotonin syndrome. Chief Complaint Nonverbal, does not respond to questions. Review of Systems Notes Patient refused to answer questions. Subjective Subjective Patient was seen & assessed and interval progress reviewed. Patient had periods of agitation alternating with sedation and unresponsiveness to painful stimuli yesterday. He refused all oral medications yesterday, and removed his IV, so has not received IV antibiotics. He was switched to p.o. antibiotics this morning, but refused those as well. He refused blood draw for lab work, and often refuses to answer staff when they tried to speak with him. On the liaison nurse saw him, he did not answer questions appropriately, and was disorganized in his speech when he did not talk. He is eating. On my assessment, he did not respond to multiple attempts to engage him in an interview, would not answer questions, and would not turn to face me. He was standing in his room with his back to the door, pacing back and forth restlessly with his back side exposed, and seemed unaware of this. Informed him that I would like to understand why he is refusing treatment, and I am concerned about his infection and his mental state, and that he will need medication in order to get well. Informed him that if he is unable or unwilling to engage in a discussion about his treatment, that we will need to a point of an alternate decision maker, and that my understanding is that his brother is his POA. He continued to pace and turned his back to me when I attempted to establish eye contact. As I was leaving, he started talking loudly, angrily, and rapidly in a disorganized fashion, stating "99%, God damn people, boys, how would I be born like this?" When encouraged to take his medication so that he can feel better, he said "no!" He then said "please just go, stop tormenting me." Physical Exam Mental Examination Well-nourished well-developed white male appearing stated age. Malodorous and unkempt, hair sticking up, unshaven. Dressed in a hospital gown that is open at the back, exposing his back side to clinicians, wearing adult diapers. Standing in his room pacing back and forth in front of the window, restless and agitated. Avoids eye contact and repeatedly turns his back when I attempted to maneuver in front of him to establish eye contact. Poorly cooperative with the assessment. Affect is restricted to agitated and distraught. Speech is initially absent, not responding to numerous attempts to engage him in conversation, and when he does speak later, is angry and loud. Thoughts are very disorganized, negative tone. No suicidal or homicidal ideation expressed, but delusions of persecution and believes that he is going to and has "fiona chen my body." Attention is impaired, with long periods of unresponsiveness, and when he does speak does not respond appropriately to questions. Alert, unclear if he is oriented as will not respond to questions. Memory impaired. Insight and judgment severely impaired. Vital Signs (Past 24 Hours) Last Vital Signs Temp 36.9 C 03/30/19 23:03 Pulse 74 03/30/19 23:03 Resp 18 03/30/19 23:03 BP 113/71 03/30/19 23:03 Pulse Ox 91 03/30/19 23:03 Results & Data Current Inpatient Medications Current Inpatient Medications: Current Inpatient Medications Amoxicillin/Clavulanate Potassium (Augmentin 875mg) 1 tab PO BID [facility] Stop: 04/10/19 08:59 Bupropion HCl (Wellbutrin-Sr) 100 mg PO DAILY [facility] Stop: 04/29/19 08:59 Last Admin: 03/30/19 10:45 Dose: Not Given Documented by: Doxycycline Hyclate (Vibramycin) 100 mg PO BID [facility] Stop: 04/10/19 08:59 Quetiapine Fumarate (Seroquel) 50 mg PO HS [facility] Stop: 04/29/19 20:59 Last Admin: 03/30/19 21:12 Dose: Not Given Documented by: Quetiapine Fumarate (Seroquel) 25 mg PO Q4 PRN PRN Reason: anxiety or psychosis Stop: 04/29/19 19:59 Sertraline HCl (Zoloft) 200 mg PO QAM [facility] Stop: 04/30/19 08:59 CPT Code CPT Code 77323 (1) Altered mental status Altered mental status type: unspecified Qualified Code(s): R41.82 - Altered mental status, unspecified (2) Depression Active/Remission status: remission status unspecified Depression Type: major depressive disorder Major depression recurrence: recurrent Qualified Code(s): F33.9 - Major depressive disorder, recurrent, unspecified
[2019-03-31] MEDS ORDERED: HALOPERIDOL LACTATE 5 MG/ML 1 ML VIAL IM STA ×2 (11:35→14:47)
[2019-03-31] MEDS ORDERED: HALOPERIDOL LACTATE 5 MG/ML 1 ML VIAL IM PRN (11:39)
[2019-03-31] MEDS ORDERED: HALOPERIDOL LACTATE 5 MG/ML 1 ML VIAL ONE (11:44)
--- NOTE | 2019-03-31 12:02 | Family Medicine Progress Note ---
Date of Service March 31, 2019 Assessment & Plan (1) Cellulitis: 59-year-old male here for right lower extremity cellulitis, chronic DVT, medication noncompliance including medication for his depression, anxiety, psychosis, as well as his DVT. Cellulitis/chronic DVT RLE -Stable, however has not received any antibiotic treatment for over 24 hours. -Patient did comply with one view x-ray imaging of his right lower extremity, negative for osteomyelitis or fracture which is reassuring. -US RLE + dvt. -Remains afebrile, normotensive -Does not appear to be in very much pain, however very difficult to assess as patient refuses any physical exams -Discussed with pharmacy and p.o. options if IV is not possible would be Augmentin to cover for strep, doxycycline to cover for MRSA. Would recommend at least a 10-day course. Supratherapeutic INR -as of 11Sep, INR 4.1. Follow. Altered mental status -Head CT negative. -Catatonia has resolved soon after admission, now with increasing agitation and refusal of examination or treatment. -On a background of well known depression and chronic delusions now with increased confusion and rumination. -Delirium from metabolic reasons given his untreated cellulitis is also a contributing factor -Psychiatry consulted, appreciate recommendations. They do acknowledge that patient is becoming more and more agitated and uncooperative, refusing all treatment including antibiotics and psychotropic medications. Patient cannot verbalize risks and benefits of moving forward or withholding treatment. Agree that patient at this time lacks capacity given his mental status and likely concomitant delirium. -Discussed extensively with psychiatry, case management, and now next of kin 'Amie' --he has said that he will come in later this afternoon to try and coax his brother to comply with medications. I did discuss with him the possibility that if his brother remains noncompliant and lacks capacity, that we would need to move forward with possible restraints in order to be able to administer the medications. We discussed that with holding this treatment would continue to adversely affect his overall health, worsen his delirium which would then worsen his psychosis and delusions and depression. Amie did voice understanding and agreement. He will come in later this afternoon to try and help. -In the meantime, we will try and use IM Haldol 2 mg every 2 hours as needed (currently do not have IV access as patient has self DC'd twice now.) and work with nursing to help administer his p.o. medicines. Lack of IV access -currently do not have IV access as patient has self DC'd twice now -As above FEN/GI: regular diet DVT ppx: as of 11Sep, INR 4.1. Follow. CODE STATUS: FULL DISPO: MED/SURG - possible for psych admission once medically stable. (2) Altered mental status: (3) Factor V Leiden mutation: (4) DVT (deep venous thrombosis): (5) Lack of intravenous access: Supervising Physician Co-Signing Physician Notes Attending attestation Pt seen and examined in concert with Dr. Alvarado. In agreement with the documented findings as noted in the resident documentation with any exceptions or additions as noted here. On evaluation, patient continues to pace without coherent verbal interactions. No threats today but refuses hx and examination. No response to discussion of cooperation v. restraint in setting of life/limb threatening illness Sibling present unable to coerce adherence. He is POA and is willing to agree to restraints with forced therapy. Delirium in the setting of severe depression - psychiatry consultation - continue sertraline, soft restraints and IV placement Cellulitis - continue IV abx therapy and follow up BCx Supratherapeutic INR w/ DVT, chronic, FVL - holding warfarin, repeat INR after restraints in place Else see resident documentation as noted. Subjective Patient is pacing in the room, refusing any examination.His right lower extremity does appear to be swollen and Erythematous.He does not appear to have an antalgic gait. Review of Systems Review of Systems: Unobtainable due to mental health condition Physical Exam Physical Exam: Vitals noted and reviewed, patient remains afebrile, normotensive. Not tachypneic. GENERAL: no acute distress, pacing the room. Not conversant. HEAD: normocephalic atraumatic RESP: normal work of breathing ABDOMEN: nondistended SKIN: Erythema and swelling in the right lower extremity, not extending past the line of demarcation. PSYCH: Non-cooperative, not very conversant. PG Care Time/CCT Total # of Minutes Spent Total Time Spent with Patient: Total time spent is greater than 50% in coordination of care (as documented) at patient's floor/unit and/or counseling patient: Resident Activity Tracking Resident Involvement: Resident Care Provided Care Provided: Adult Hospital Medicine (1) DVT (deep venous thrombosis) DVT location: lower extremity (2) Cellulitis Laterality: right Site of cellulitis: extremity Site of cellulitis of extremity: lower extremity Qualified Code(s): L03.115 - Cellulitis of right lower limb (3) Altered mental status Altered mental status type: unspecified Qualified Code(s): R41.82 - Altered mental status, unspecified
[2019-03-31] MEDS: BuPROPion SR 100 MG TABCR PO SCH (13:41)
[2019-03-31] MEDS: SERTRALINE HCL 100 MG TABLET PO SCH (13:42)
[2019-03-31] MEDS: DOXYCYCLINE HYCLATE 100 MG CAP PO SCH ×2 (14:56→21:17)
[2019-03-31] MEDS: AMOXICILLIN/CLAVULANATE 875 MG TAB PO SCH ×2 (14:56→21:16)
[2019-03-31] MEDS ORDERED: LORazepam 2 MG/ML VIAL (IM USE) IM PRN (18:40)
[2019-03-31] MEDS ORDERED: VANCOMYCIN CONSULT ACTIVE PRN (18:51)
[2019-03-31] MEDS ORDERED: VANCOMYCIN HCL 2,500 MG in SODIUM CHLORIDE 0.9% 500 ML IV SCH (21:00)
[2019-03-31] MEDS: OLANZapine 10 MG/2.1 ML SDV IM SCH (21:02)
[2019-03-31] MEDS: QUETIAPINE FUMARATE 25 MG TABLET PO SCH (21:16)
[2019-04-01] MEDS ORDERED: VANCOMYCIN HCL 1,500 MG in SODIUM CHLORIDE 0.9% 500 ML IV SCH (06:00)
[2019-04-01 06:19] LABS: Mean Corpuscular Hgb Conc 34.2 g/dL (32-36); Mean Corpuscular Volume 85.8 fL (80-100); Mean Platelet Volume 8.7 fL (7.4-10.4); Platelet Count 254 K/uL (130-400); RDW Standard Deviation 43.8 fL (36.4-46.3); Red Blood Count 4.43 M/uL (4.7-6.1); White Blood Count 5.82 K/uL (4.8-10.8)
[2019-04-01 06:26] LABS: INR 1.6 (0.9-1.1); Prothrombin Time 16.2 Seconds (9.0-12.0)
[2019-04-01 06:53] LABS: Albumin Level 2.6 gm/dl (3.4-5.0); BUN Creatinine Ratio 18.5 (10-20); Calcium 8.5 mg/dl (8.5-10.1); Est GFR (African American) 111.2; Est GFR (Non-African American) 95.9; Potassium 3.4 mmol/L (3.5-5.1)
[2019-04-01 06:56] LABS: Albumin Globulin Ratio 0.7 (0.9-2); Bilirubin,Total 0.5 mg/dl (0.2-1); Globulin 3.8 gm/dl (2.5-4.0); Total Protein 6.4 gm/dl (6.4-8.2)
[2019-04-01] MEDS: cefTRIAXone SODIUM 2,000 MG in DEXTROSE 5% 50 ML IV SCH (08:06)
--- NOTE | 2019-04-01 08:49 | Pharmacy Report ---
Pharmacy Abx Dose Short Note - Date of Service April 01, 2019 - Assessment & Plan Assessment 59 year old M receiving ceftriaxone/vancomycin for treatment of cellulitis Day # 2 of antimicrobial therapy. Patient received 24 mg/kg loading dose and was started empirically on 1500 mg q10H, this would predict a trough ~19.8 and patient may have some accumulation, therefore empirically reduced to 1500 mg q12H as 10-15 mcg/ml trough is often sufficient for cellulitis. Patient afebrile, normal white count. ?need for MRSA coverage. Possible transition to PO if patient able to cooperate Plan Vancomycin * Change to 1500 mg IV every 12 hours * Goal trough level 10-15 mcg/mL * Trough or random level ordered for: 04/03 @0974 Pharmacy will continue to follow and will adjust dose/frequency as necessary. Thank you.
[2019-04-01] MEDS: SERTRALINE HCL 100 MG TABLET PO SCH (09:58)
[2019-04-01] MEDS: BuPROPion SR 100 MG TABCR PO SCH (09:58)
[2019-04-01] MEDS ORDERED: HEPARIN SODIUM/DEXTROSE 25,000 UNITS/500 ML BAG IV SCH ×2 (12:30→13:15)
[2019-04-01 13:03] LABS: Basophils # (auto) 0.01 K/uL (0-0.2); Basophils % (auto) 0.2 %; Eosinophils # (auto) 0.24 K/uL (0-0.5); Eosinophils % (auto) 3.8 %; Hematocrit (blood only) 38.8 % (42-52); Immature Granulocytes # (auto) 0.02 K/uL (0.00-0.02); Immature Granulocytes % (auto) 0.3 %; Lymphocytes # (auto) 1.29 K/uL (1.2-3.4); Lymphocytes % (auto) 20.6 %; Mean Corpuscular Volume 86.4 fL (80-100); Mean Platelet Volume 8.7 fL (7.4-10.4); Monocytes # (auto) 0.54 K/uL (0.11-0.59); Monocytes % (auto) 8.6 %; Neutrophils # (auto) 4.15 K/uL (1.4-6.5); Neutrophils % (auto) 66.5 %; Platelet Count 259 K/uL (130-400); RDW Standard Deviation 44.4 fL (36.4-46.3); Red Blood Count 4.49 M/uL (4.7-6.1); White Blood Count 6.25 K/uL (4.8-10.8)
[2019-04-01 13:04] LABS: Mean Corpuscular Hgb Conc 33.5 g/dL (32-36)
[2019-04-01 13:15] LABS: INR 1.5 (0.9-1.1); Partial Thromboplastin Ratio 1.1; Partial Thromboplastin Time 28.8 Seconds (21.0-31.0); Prothrombin Time 15.4 Seconds (9.0-12.0)
[2019-04-01] MEDS ORDERED: HEPARIN IV BOLUS 7,000 UNITS in SYRINGE 0 ML IV ONE (13:30)
[2019-04-01] MEDS: ENOXAPARIN 150 MG/ML SYR SQ SCH (15:09)
[2019-04-01] MEDS: VANCOMYCIN HCL 1,500 MG in SODIUM CHLORIDE 0.9% 500 ML IV SCH (17:06)
--- NOTE | 2019-04-01 19:12 | Family Medicine Progress Note ---
Date of Service April 01, 2019 Assessment & Plan (1) Cellulitis: 59-year-old male here for right lower extremity cellulitis, chronic DVT, medication noncompliance including medication for his depression, anxiety, psychosis, as well as his DVT. Cellulitis -Improving, rash is down and redness reduced though still swollen and warm Placed IV last night and has been receiving Vanc and Rocephin Same side as DVT -Patient did comply with one view x-ray imaging of his right lower extremity, negative for osteomyelitis or fracture which is reassuring. -Remains afebrile, normotensive DVT -US RLE + dvt. Patient subtherapeutic and obviously unable to take warfarin Transitioned to lovenox May consider transitioning to factor Xa inhibitor as mental status improves Subtherapeutic INR 1.6 INR today, started therapeutic lovenox injections Altered mental status Patient somnolent for entirety of my interview and exam today Likey secondary to antipsychotic medication administered last night for agitation -Head CT negative. -Catatonia has resolved soon after admission, now with increasing agitation and refusal of examination or treatment. -On a background of well known depression and chronic delusions now with increased confusion and rumination. -Delirium from metabolic reasons given his untreated cellulitis is also a contributing factor -Psychiatry consulted, appreciate recommendations. They do acknowledge that patient is becoming more and more agitated and uncooperative, refusing all treatment including antibiotics and psychotropic medications. Patient cannot verbalize risks and benefits of moving forward or withholding treatment. Agree that patient at this time lacks capacity given his mental status and likely concomitant delirium. -Brother is next of kin POA. He tells me he supports us using restraints and chemical sedation as needed to make sure he is able to receive treatment. -In the meantime, we will try and use IM Haldol 2 mg every 2 hours as needed Lack of IV access Resolved for now though patient remains high risk for self removal Will consider soft restraints if needed FEN/GI: regular diet as tolerated DVT ppx: Lovenox CODE STATUS: FULL DISPO: MED/SURG - possible for psych admission once medically stable. (2) Altered mental status: (3) Depression: (4) Factor V Leiden mutation: (5) DVT (deep venous thrombosis): Supervising Physician Co-Signing Physician Notes Attending attestation Patient seen and examined with the resident physician. I agree with the impression and plan as noted above. Patient is sleeping it seems, although may be awake but avoiding interaction with us. His vital signs are stable. LE erythema appears to be improving. Delirium in the setting of severe depression - psychiatry consultation Cellulitis - continue IV antibiotics DVT - Lovenox dosed q24 hours the easiest option given patient's non c ompliance/refusals Subjective Patient somnolent not able to participate at all today Review of Systems Review of Systems: Unobtainable due to reduced consciousness Physical Exam Constitutional: + obese, + disheveled and + lethargic; + uncooperative Eyes: Uncooperative with eye exam Respiratory: normal respiratory effort, lungs clear to auscultation Cardiovascular: Rate/Rhythm: regular rate and regular rhythm Heart Sounds: no click, no gallop, no murmur and no cardiac rub Extremities: + edema (RIght sided leg edema and redness) Gastrointestinal (Abdomen): Percussion/Palpation: abdomen soft Psychiatric: Orientation: + not alert, + not oriented x 3 and + uncooperative Apperance: + disheveled Eye Contact: + poor eye contact Speech: + mute Results & Data Vital Signs (Past 12 Hours) Vital Signs Temp Pulse Resp BP Pulse Ox 04/01/19 15:14 61 18 154/86 H 97 04/01/19 07:27 36.6 C 62 17 146/81 H 99 PG Care Time/CCT Total # of Minutes Spent Total Time Spent with Patient: Total time spent is greater than 50% in coordination of care (as documented) at patient's floor/unit and/or counseling patient: Resident Activity Tracking Resident Involvement: Resident Care Provided Care Provided: Adult Hospital Medicine (1) DVT (deep venous thrombosis) DVT location: lower extremity (2) Cellulitis Laterality: right Site of cellulitis: extremity Site of cellulitis of extremity: lower extremity Qualified Code(s): L03.115 - Cellulitis of right lower limb (3) Depression Active/Remission status: remission status unspecified Depression Type: major depressive disorder Major depression recurrence: recurrent Qualified Code(s): F33.9 - Major depressive disorder, recurrent, unspecified (4) Altered mental status Altered mental status type: unspecified Qualified Code(s): R41.82 - Altered mental status, unspecified
[2019-04-02] MEDS: QUETIAPINE FUMARATE 25 MG TABLET PO SCH ×2 (03:27→20:12)
[2019-04-02] MEDS: OLANZapine 10 MG/2.1 ML SDV IM SCH ×2 (03:30→23:08)
[2019-04-02] MEDS: VANCOMYCIN HCL 1,500 MG in SODIUM CHLORIDE 0.9% 500 ML IV SCH ×2 (04:30→18:35)
[2019-04-02] MEDS: cefTRIAXone SODIUM 2,000 MG in DEXTROSE 5% 50 ML IV SCH (07:59)
[2019-04-02] MEDS: SERTRALINE HCL 100 MG TABLET PO SCH (08:01)
[2019-04-02] MEDS: BuPROPion SR 100 MG TABCR PO SCH (08:01)
--- NOTE | 2019-04-02 13:32 | Family Medicine Progress Note ---
Date of Service April 02, 2019 Assessment & Plan (1) Cellulitis: 59-year-old male here for right lower extremity cellulitis, chronic DVT, medication noncompliance including medication for his depression, anxiety, psychosis, as well as his DVT. Cellulitis -Continues to improve. Continue IV antibiotics. Like to transition to p.o. continue to assess capacity. X-ray negative for osteomyelitis or fracture which is reassuring. DVT -US RLE + dvt. Continue Lovenox May consider transitioning to factor Xa inhibitor as mental status improves Subtherapeutic INR Continue Lovenox Altered mental status Mental status improving, although the patient still appeared defensive and paranoid. Difficult to assess thought process. Patient has lack capacity, was refusing p.o. medications, we are continuing IV and IM medications Currently doing well with one-to-one, continue to assess capacity. Brother is next to kin POAsupports use of restraints, chemical sedation -In the meantime, we will try and use IM Haldol 2 mg every 2 hours as needed Multifactorialknown depression with delusions, delirium on cellulitis, medication nonadherence -Head CT negative. -Psychiatry consulted, appreciate recommendations. Lack of IV access Resolved for now though patient remains high risk for self removal Will consider soft restraints if needed FEN/GI: regular diet as tolerated DVT ppx: Lovenox CODE STATUS: FULL DISPO: MED/SURG - possible for psych admission once medically stable. (2) Altered mental status: (3) Depression: (4) DVT (deep venous thrombosis): (5) Factor V Leiden mutation: (6) Anxiety: Supervising Physician Co-Signing Physician Notes Attending attestation Patient seen and examined with the resident physician. I agree with the impression and plan as noted above. Patient is awake pacing in his room; there is a one-to-one aide. Minimal conversation; no obvious distress. LE erythema appears to be improving. Delirium in the setting of severe depression - psychiatry consultation Cellulitis - continue IV antibiotics DVT - Lovenox dosed q24 hours the easiest option given patient's non compliance/refusals. I did offer him the option of transitioning to an oral antibiotic and anticoagulant, though he did not respond. Subjective Patient is pacing the room, alert, and able to answer questions. He says "here they are again" will we walked in the room. Patient was defensive to our qu estions, but was alert and attentive. Difficult to assess thought process or reasoning. Review of Systems Review of Systems: Unobtainable due to mental health condition Physical Exam Physical Exam: Deferred complete physical exam as the patient was becoming defensive secondary to until health condition Skin; right lower extremity greater than left lower extremity, mild erythema of the distal right lower extremity Neuro; alert, normal gait, moving all extremities PG Care Time/CCT Total # of Minutes Spent Total Time Spent with Patient: Total time spent is greater than 50% in coordination of care (as documented) at patient's floor/unit and/or counseling patient: Resident Activity Tracking Resident Involvement: Resident Care Provided Care Provided: Adult Hospital Medicine (1) DVT (deep venous thrombosis) DVT location: lower extremity (2) Cellulitis Laterality: right Site of cellulitis: extremity Site of cellulitis of extremity: lower extremity Qualified Code(s): L03.115 - Cellulitis of right lower limb (3) Depression Active/Remission status: remission status unspecified Depression Type: major depressive disorder Major depression recurrence: recurrent Qualified Code(s): F33.9 - Major depressive disorder, recurrent, unspecified (4) Altered mental status Altered mental status type: unspecified Qualified Code(s): R41.82 - Altered mental status, unspecified
--- NOTE | 2019-04-02 14:38 | Psychiatric Progress Note ---
Date of Service April 02, 2019 Impression / Recommendations Impression Mr. Wood is a 59-year-old single male with a history of psychotic depression and multiple medical problems who presents with altered mental status, depression, anxiety, somatic delusions, and periods of unresponsiveness. This is unlike his previous episodes of psychotic depression in that he is more agitated, disorganized, and has had periods of unresponsiveness to painful stimuli. The differential includes delirium due to infection and medical issues, catatonia, and severely decompensated psychotic depression. (1) Altered mental status: 03/30 -likely multifactorial with differential as above. -We will continue to monitor as his infection improves. 03/31 -patient more agitated, uncooperative with the assessment, refusing all treatment including antibiotics and psychotropic medications. -Lorazepam IM may be helpful for agitation and anxiety, and haloperidol 5-10 mg IM for severe agitation or psychosis. 04/01 -patient remains intermittently agitated and uncooperative, noncompliant with oral medications. He has olanzapine 10 mg IM ordered nightly, but only received it once on 03/31/2019. Present on Admission?: Yes (2) Depression: 03/30 -discussed with primary attending, Dr. Anaya. Continue home dose of bupropion and will resume sertraline as I have a low suspicion for serotonin syndrome. Will continue to hold trazodone and buspirone for now, as it is unclear to me if he was compliant with medications at home and want to minimize excessive medications due to fragility at this time. -Patient has done well with quetiapine in the past, which could be helpful now to target both chronic delusions as well as confusion and rumination. Will order 50 mg at bedtime and 25 mg every 4 hours as needed during the day as needed. -Get records from outpatient psychiatrist Dr. Harrington. -Thank you for the consult, we will continue to follow. 03/31-patient is now refusing all p.o. medications. Continue to offer quetiapine if he will accept oral medications, otherwise recommend IM medications as above. 04/02 -hold bupropion as patient has been refusing it. Continue to offer quetiapine, as he responded to this well in the past. Present on Admission?: Yes Risk Factors Assessment Do You Have Access To A Gun?: No Interval History Identifying Information YINKA WOOD is a 58-year-old M who currently lives in an [facility], has a history of recurrent, severe depression with psychosis, anxiety NOS, factor V Leiden mutation, and history of DVT/PE on chronic anticoagulation who is hospitalized medically for altered mental status, DVT, and cellulitis. Psychiatry was consulted for altered mental status and concern for serotonin syndrome. Chief Complaint Patient nonverbal, refusing to answer questions. Review of Systems Notes Unable to assess patient due to refusal to participate. Subjective Subjective Patient was seen & assessed and interval progress reviewed. Per notes, he is intermittently cooperative with assessments, at times refusing to answer any questions, but other times speaks and is able to participate in the interview process. He received IV antibiotics this morning and ate breakfast, but continues to refuse p.o. medications and vital signs. He is only received 1 dose of bupropion, on 03/31/2019, and has refused all doses of quetiapine. On my assessment, he was lying in bed with his eyes open but his back to the door, and was not responsive to multiple attempts to engage him in conversation. He did not move in bed or make eye contact, and did not speak at all. His nurse reports that overnight he was talking about how he is going to go blind from his diabetes. Physical Exam Mental Examination Overweight, unkept white male appearing his stated age. Dressed in a hospital gown, which is not fully fastened around his body. Lying on his side in bed with his back to the door, eyes open, but nonverbal. Avoids eye contact. Does not respond to numerous attempts to engage him in an interview. Vital Signs (Past 24 Hours) Last Vital Signs Temp 36.7 C 04/01/19 22:59 Pulse 63 04/01/19 22:59 Resp 20 04/01/19 22:59 BP 151/85 H 04/01/19 22:59 Pulse Ox 94 04/01/19 22:59 Results & Data Laboratory Results Laboratory Results - last 24 hr 04/01/19 15:58 Random Vancomycin 16.5 Current Inpatient Medications Current Inpatient Medications: Current Inpatient Medications Bupropion HCl (Wellbutrin-Sr) 100 mg PO DAILY [facility] Stop: 04/29/19 08:59 Last Admin: 04/02/19 08:01 Dose: Not Given Documented by: Enoxaparin Sodium (Lovenox) 150 mg SQ Q24H [facility] Stop: 05/01/19 13:59 Last Admin: 04/01/19 15:09 Dose: 150 mg Documented by: Haloperidol Lactate (Haldol) 2 mg IM Q4H PRN PRN Reason: Anxiety/Agitation Stop: 04/30/19 11:38 Ceftriaxone Sodium 2,000 mg/ (Dextrose) 70 mls @ 100 mls/hr IV Q24H SETH; Protocol Stop: 04/11/19 07:59 Last Infusion: 04/02/19 08:45 Dose: Infused Documented by: Vancomycin HCl 1,500 mg/ (Sodium Chloride) 530 mls @ 200 mls/hr IV Q12H [facility] Stop: 04/11/19 05:59 Last Infusion: 04/02/19 07:16 Dose: Infused Documented by: Lorazepam (Ativan) 2 mg IM Q2H PRN PRN Reason: Agitation Stop: 04/30/19 18:44 Miscellaneous Information (Consult) 1 ea N/A UD PRN PRN Reason: Consult Stop: 04/30/19 18:50 Olanzapine (Zyprexa) 10 mg IM HS [facility] Stop: 04/30/19 20:59 Last Admin: 04/02/19 03:30 Dose: Not Given Documented by: Quetiapine Fumarate (Seroquel) 50 mg PO HS [facility] Stop: 04/29/19 20:59 Last Admin: 04/02/19 03:27 Dose: Not Given Documented by: Quetiapine Fumarate (Seroquel) 25 mg PO Q4 PRN PRN Reason: anxiety or psychosis Stop: 04/29/19 19:59 Last Admin: 03/31/19 13:42 Dose: 25 mg Documented by: Sertraline [facility] ([facility]ft) [facility] [place] Stop: 04/30/19 08:59 Last Admin: 04/02/19 08:01 Dose: Not Given Documented by: CPT Code CPT Code 61748 (1) Altered mental status Altered mental status type: unspecified Qualified Code(s): R41.82 - Altered mental status, unspecified (2) Depression Active/Remission status: remission status unspecified Depression Type: major depressive disorder Major depression recurrence: recurrent Qualified Code(s): F33.9 - Major depressive disorder, recurrent, unspecified
[2019-04-02] MEDS: ENOXAPARIN 150 MG/ML SYR SQ SCH (15:06)
[2019-04-02 20:23] LABS: Basophils # (auto) 0.01 K/uL (0-0.2); Basophils % (auto) 0.2 %; Eosinophils # (auto) 0.27 K/uL (0-0.5); Eosinophils % (auto) 4.1 %; Hematocrit (blood only) 40.6 % (42-52); Immature Granulocytes # (auto) 0.03 K/uL (0.00-0.02); Immature Granulocytes % (auto) 0.5 %; Lymphocytes % (auto) 21.1 %; Mean Corpuscular Hgb Conc 34.5 g/dL (32-36); Mean Corpuscular Volume 85.1 fL (80-100); Mean Platelet Volume 8.7 fL (7.4-10.4); Monocytes # (auto) 0.76 K/uL (0.11-0.59); Monocytes % (auto) 11.5 %; Neutrophils # (auto) 4.16 K/uL (1.4-6.5); Neutrophils % (auto) 62.6 %; Platelet Count 294 K/uL (130-400); RDW Coefficient of Variation 13.7 % (11.5-14.5); RDW Standard Deviation 42.6 fL (36.4-46.3); Red Blood Count 4.77 M/uL (4.7-6.1); White Blood Count 6.63 K/uL (4.8-10.8)
[2019-04-02 20:33] LABS: INR 1.6 (0.9-1.1); Prothrombin Time 15.6 Seconds (9.0-12.0)
[2019-04-02 20:40] LABS: Albumin Level 3.1 gm/dl (3.4-5.0); Calcium 9.4 mg/dl (8.5-10.1); Creatinine Clr Calc Pharmacy 109.6 ml/min; Potassium 3.5 mmol/L (3.5-5.1)
[2019-04-02 20:43] LABS: Albumin Globulin Ratio 0.7 (0.9-2); Bilirubin,Total 0.4 mg/dl (0.2-1); Globulin 4.2 gm/dl (2.5-4.0); Total Protein 7.3 gm/dl (6.4-8.2)
[2019-04-03] MEDS ORDERED: VANCOMYCIN TROUGH ONE (04:30)
[2019-04-03] MEDS: VANCOMYCIN HCL 1,500 MG in SODIUM CHLORIDE 0.9% 500 ML IV SCH (04:36)
[2019-04-03 05:08] LABS: INR 1.5 (0.9-1.1); Prothrombin Time 14.7 Seconds (9.0-12.0)
[2019-04-03 05:14] LABS: Albumin Level 2.8 gm/dl (3.4-5.0); Creatinine Clr Calc Pharmacy 108.3 ml/min; Est GFR (African American) 108.5; Est GFR (Non-African American) 93.6; Potassium 3.5 mmol/L (3.5-5.1)
[2019-04-03 05:16] LABS: Albumin Globulin Ratio 0.8 (0.9-2); Bilirubin,Total 0.4 mg/dl (0.2-1); Globulin 3.3 gm/dl (2.5-4.0); Total Protein 6.1 gm/dl (6.4-8.2)
[2019-04-03] MEDS: cefTRIAXone SODIUM 2,000 MG in DEXTROSE 5% 50 ML IV SCH (07:30)
[2019-04-03] MEDS: SERTRALINE HCL 100 MG TABLET PO SCH (08:16)
--- NOTE | 2019-04-03 10:11 | Pharmacy Report ---
Pharmacy Abx Dose Short Note - Date of Service April 03, 2019 - Assessment & Plan Assessment * 59 year old M receiving vancomycin and ceftriaxone for treatment of cellulitis * Day # 4 of antimicrobial therapy Plan Vancomycin * Trough level of 17 mcg/mL is slightly supratherapeutic for cellulitis indication * Change to 1250 mg IV every 12 hours * Goal trough level: ~15 mcg/mL * Trough ordered for: 04/05 at 0430, prior to the fourth 1250mg dose Pharmacy will continue to follow and will adjust dose/frequency as necessary. Thank you.
--- NOTE | 2019-04-03 12:04 | Communication Note ---
Date of Service: April 03, 2019 Chart reviewed and interval history reviewed with the psychiatric liaison nurse. Patient received 2 mg lorazepam last evening and behavior was much improved afterwards, interacting more appropriately with staff and allowing necessary treatment/care. Recommend considering scheduled lorazepam 2 mg twice daily-3 times daily.
--- NOTE | 2019-04-03 12:53 | Family Medicine Progress Note ---
Date of Service April 03, 2019 Assessment & Plan (1) Cellulitis: 59-year-old male here for right lower extremity cellulitis, chronic DVT, medication noncompliance including medication for his depression, anxiety, psychosis, as well as his DVT. Cellulitis -Continues to improve. Patient agrees to p.o. medicationstransition to Keflex 500 mg 4 times daily. X-ray negative for osteomyelitis or fracture DVT -US RLE + dvt. Continue Lovenox bridge warfarin Subtherapeutic INR Patient agrees to oral medications, restarting warfarin, follow INR Altered mental status Mental status improving, answering questions appropriately, alert and oriented. Still appears flat, defensive. Proceeding with p.o. medications cautiously Psychiatry consulted, appreciate recommendationswill start scheduled lorazepam 2 mg twice daily per recommendations, PRN Lorazepam and Haldol for acute agitation. Currently doing well with one-to-one, continue to assess capacity. Brother is next to kin POAsupports use of restraints, chemical sedation Multifactorialknown h/o depression with delusions, delirium on cellulitis, medication nonadherence -Head CT negative Lack of IV access Resolved for now though patient remains high risk for self removal Will consider soft restraints if needed FEN/GI: regular diet as tolerated DVT ppx: Lovenox, bridging warfarin CODE STATUS: FULL DISPO: MED/SURG - possible for psych admission once medically stable. (2) Altered mental status: (3) Depression: (4) DVT (deep venous thrombosis): (5) Factor V Leiden mutation: H/o DVT/PE (6) Anxiety: Supervising Physician Co-Signing Physician Notes Attending attestation Patient seen and examined with the resident physician. I agree with the impression and plan as noted above. Patient was reportedly awake with increased interaction with staff earlier today -he was more willing to undergo treatment for his conditions. When I saw him with the resident, he was sleeping in a prone position and that would not interact. The erythema of the right lower extremity has completely resolved; it remains larger compared to the left lower extremity. Delirium in the setting of severe depression -improved; he said earlier today that he be willing to take oral medications instead of IV medications. Can discuss admission to 3 [address]. tomorrow. Cellulitis -convert to oral Keflex; I do not think this represents MRSA, however if erythema returns will need to add MRSA coverage. DVT -continue Lovenox until therapeutic INR. Patient reportedly had a significant allergic reaction to Xarelto and has been maintained on warfarin through the anticoagulation clinic since that time. Subjective Patient doing much better today. Answering questions appropriately, alert and oriented to person place and time. The patient states that he is amenable to taking pills at this point. Review of Systems Review of Systems: All systems reviewed & are unremarkable except as noted in HPI & below Physical Exam Constitutional: WD/WN, vitals as above Eyes: PERRL, conjunctivae normal, anicteric sclerae ENMT: external ear and nose normal, oropharynx normal Neck: trachea midline, no thyromegaly Musculoskeletal: no cyanosis or clubbing, extremities motor strength 5/5 Skin: no rashes, warm and dry Right lower extremityresolution of cellulitis, improved distal edema, no tenderness or warmth Neurologic: PERRL, EOMI, accommodation nl, no face palsy, no dysarthria Psychiatric: A+Ox3, euthymic affect Results & Data Vital Signs (Past 12 Hours) Vital Signs Pulse Resp BP Pulse Ox 04/03/19 08:18 81 18 126/86 98 PG Care Time/CCT Total # of Minutes Spent Total Time Spent with Patient: Total time spent is greater than 50% in coordination of care (as documented) at patient's floor/unit and/or counseling patient: Resident Activity Tracking Resident Involvement: Resident Care Provided Care Provided: Adult Hospital Medicine (1) DVT (deep venous thrombosis) DVT location: lower extremity (2) Cellulitis Laterality: right Site of cellulitis: extremity Site of cellulitis of extremity: lower extremity Qualified Code(s): L03.115 - Cellulitis of right lower limb (3) Depression Active/Remission status: remission status unspecified Depression Type: major depressive disorder Major depression recurrence: recurrent Qualified Code(s): F33.9 - Major depressive disorder, recurrent, unspecified (4) Altered mental status Altered mental status type: unspecified Qualified Code(s): R41.82 - Altered mental status, unspecified
[2019-04-03] MEDS: cephALEXin 500 MG CAP PO SCH ×3 (13:50→21:39)
[2019-04-03] MEDS: LORazepam 1 MG TAB PO SCH ×2 (13:50→21:39)
[2019-04-03] MEDS: ENOXAPARIN 150 MG/ML SYR SQ SCH (14:45)
[2019-04-03] MEDS: WARFARIN SOD 5 MG TAB PO SCH (16:28)
[2019-04-03] MEDS ORDERED: VANCOMYCIN HCL 1,250 MG in SODIUM CHLORIDE 0.9% 250 ML IV SCH (17:00)
[2019-04-03] MEDS: QUETIAPINE FUMARATE 25 MG TABLET PO SCH (21:39)
[2019-04-04 06:07] LABS: Albumin Level 2.7 gm/dl (3.4-5.0); BUN Creatinine Ratio 19.7 (10-20); Creatinine Clr Calc Pharmacy 108.3 ml/min; Est GFR (African American) 108.5; Est GFR (Non-African American) 93.6; Potassium 3.7 mmol/L (3.5-5.1)
[2019-04-04 06:10] LABS: Albumin Globulin Ratio 0.8 (0.9-2); Bilirubin,Total 0.4 mg/dl (0.2-1); Globulin 3.3 gm/dl (2.5-4.0)
[2019-04-04 06:33] LABS: INR 1.3 (0.9-1.1); Prothrombin Time 12.8 Seconds (9.0-12.0)
[2019-04-04] MEDS: LORazepam 1 MG TAB PO SCH (08:44)
[2019-04-04] MEDS: SERTRALINE HCL 100 MG TABLET PO SCH (08:45)
[2019-04-04] MEDS: cephALEXin 500 MG CAP PO SCH ×3 (08:45→16:16)
[2019-04-04] MEDS: ENOXAPARIN 150 MG/ML SYR SQ SCH (13:53)
--- NOTE | 2019-04-04 14:03 | Family Medicine Progress Note ---
Date of Service April 04, 2019 Assessment & Plan (1) Cellulitis: 59-year-old male here for right lower extremity cellulitis, chronic DVT, medication noncompliance including medication for his depression, anxiety, psychosis, as well as his DVT. Cellulitis -Continues to improve. Patient tolerating p.o. medications Continue Keflex 500 mg 4 times daily X-ray negative for osteomyelitis or fracture DVT -US RLE + dvt. Continue Lovenox bridge warfarin Subtherapeutic INR Patient agrees to oral medications, restarting warfarin, follow INR Altered mental status Continues to improve Agrees to treatment Psychiatry consulted, appreciate recommendationswill start scheduled lorazepam 2 mg twice daily per recommendations, PRN Lorazepam and Haldol for acute agitation. One to one PRN, continue to assess capacity. Brother is next to kin POAsupports use of restraints, chemical sedation Multifactorialknown h/o depression with delusions, delirium on cellulitis, medication nonadherence -Head CT negative Lack of IV access Resolved for now though patient remains high risk for self removal Will consider soft restraints if needed FEN/GI: regular diet as tolerated DVT ppx: Lovenox, bridging warfarin CODE STATUS: FULL DISPO: MED/SURG - possible for psych admission once medically stable. (2) Altered mental status: (3) Depression: (4) DVT (deep venous thrombosis): (5) Factor V Leiden mutation: (6) Anxiety: Subjective Patient continues to do better today. Answering questions appropriately-- alert and oriented to person place and time. Patient reports taking medications as prescribed. Review of Systems Review of Systems: All systems reviewed & are unremarkable except as noted in HPI & below Physical Exam Constitutional: WD/WN, vitals as above Eyes: PERRL, conjunctivae normal, anicteric sclerae ENMT: external ear and nose normal, oropharynx normal Neck: trachea midline, no thyromegaly Musculoskeletal: no cyanosis or clubbing, extremities motor strength 5/5 Skin: no rashes, warm and dry Right lower extremityresolution of cellulitis, continued improvement of distal edema, no tenderness or warmth, R leg edema>L Neurologic: PERRL, EOMI, accommodation nl, no face palsy, no dysarthria Psychiatric: A+Ox3, euthymic affect Results & Data Vital Signs (Past 12 Hours) Vital Signs Temp Pulse Resp BP Pulse Ox 04/04/19 10:02 36.7 C 64 18 107/70 95 PG Care Time/CCT Total # of Minutes Spent Total Time Spent with Patient: Total time spent is greater than 50% in coordination of care (as documented) at patient's floor/unit and/or counseling patient: Resident Activity Tracking Resident Involvement: Resident Care Provided Care Provided: Adult [facility] (1) DVT (deep venous thrombosis) DVT location: lower extremity (2) Cellulitis Site of cellulitis: unspecified site Qualified Code(s): L03.90 - Cellulitis, unspecified (3) Depression Active/Remission status: remission status unspecified Depression Type: major depressive disorder Major depression recurrence: recurrent Qualified Code(s): F33.9 - Major depressive disorder, recurrent, unspecified (4) Altered mental status Altered mental status type: unspecified Qualified Code(s): R41.82 - Altered mental status, unspecified
[2019-04-04] MEDS: WARFARIN SOD 5 MG TAB PO SCH (16:17)
--- NOTE | 2019-04-04 16:22 | Discharge Summary ---
Date of Service April 04, 2019 Admission HPI Per Admitting Provider Patient is well-known to me from several previous hospitalizations, most recently on psychiatric inpatient unit from 02/17/19 - 03/09/19 for for recurrent, severe MDD with psychosis s/p intentional OD with OTC sleep medications. He was discharged on sertraline 200 mg, with [place] [facility] [place] and [facility] with Juan Menendez. He is presented to the ER several times in the 2 weeks since discharge; he presented 03/19/2019 with complaints of head pain, neck pain, cold all over, chills, and lightheadedness. His sister in law stated he had continued to struggle and had called her that day stating he was dying. She was concerned that he was not eating or taking his medications properly. He was seen by the ER site casework supervisor and reported that he had been diagnosed with diabetes, although medical records did not support that. He was ultimately discharged home. He returned to the ER 03/24/2019 reporting that he has diabetes and is losing his hearing and eyesight, had no feeling in his legs, and was sleeping poorly. He was again seen by the ER site casework supervisor and was focused on having diabetes as well as multiple other medical problems, saying he could not even walk his health was so poor. He denied suicidal thoughts, but reported ongoing loneliness, and refused voluntary psychiatric hospitalization, so was discharged home. Yesterday he presented to the ER with confusion and persistent right lower extremity pain and swelling x2 days. His [id number] was concerned about the state of his right lower extremity, so contacted his casework supervisor, who went to the patient's house. The patient did not answer the door, so police were notified. They entered the home and interacted with the patient, who was initially responsive, but at some point stopped responding to them, so was brought into the hospital. In the ER, he was nonverbal but awake and alert, followed commands, and was found to have extensive nonocclusive thrombus in the popliteal vein of the right lower extremity. He had a head CT which was normal, and chest x-ray which showed slightly prominent basilar markings. Laboratory data was notable normal WBCs, INR of 4.1, potassium of 3.4 but electrolytes otherwise normal, and UA with 2+ ketones. UDS was negative. He is also been diagnosed with cellulitis of the right lower extremity, and was started on Rocephin and vancomycin. IV fluids were started for dehydration, and Coumadin was held due to supratherapeutic INR. His home psychotropic medications include bupropion, sertraline, trazodone, and buspirone; sertraline and trazodone were held due to concerns for serotonin fever although this was thought to be unlikely due to lack of clonus, fever, hypertension. Per the primary attending, earlier today he was nonverbal and unresponsive to painful stimuli. Case management spoke with his MH/ID casework supervisor, Av Perez, who reports the patient continues under a 304 involuntary outpatient commitment. His casework supervisor accompanies him to outpatient appointments, and when he saw the patient last week, he reported problems with "cold extremities." The family has been exploring personal intermediate placement (looked into [facility]), as they are concerned he cannot live independently. On my assessment, the patient initially does not respond to multiple questions, sitting on the edge of his bed with his head in his hands looking at the floor. After a period of unresponsiveness, he then starts talking, but does not answer questions posed to him, and instead talking about his long-standing belief that he received the bad genes in his family, while all the other family members got the good genes, and that this has caused all of his problems. He initially states that he made a mistake and he actually got all the good genes, refers to himself as a "super genius," and said that he had his IQ tested and it was over 200. He vacillates between talking about himself in this way, and making derogatory statements about himself. 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 At one point he says that he is going to be within the next couple of minutes. He vacillates back and forth between talking about how terrible his life is, the horrible mistakes he has made, and his imminent , and mid sentence which is and is talking about being a "super genius, I am still 18 years old by age, could still make millions." He denies suicidal thoughts, stating "when you are going to , you do not need any." He cannot tell me if he has been compliant with his medications at home, stating that he takes "some of them." He thinks he is here in the hospital for "diabetes." No evidence of hallucinations or HI. Principal Diagnosis cellulitis, AMS Discharge Exam Vitals noted and within normal limits GENERAL: Awake, nontoxic-appearing, in no distress. HENT: Normocephalic, atraumatic. EYES: Normal conjunctiva. Sclera non-icteric. EOMI. NECK: Supple. Full range of motion. RESPIRATORY: Clear to auscultation. Normal work of breathing. CARDIAC: Regular rate, normal rhythm. Extremities warm and well perfused, 2+ radial pulses bilaterally; ABDOMEN: Soft, Bowel sounds are normal. LOWER EXTREMITIES: Inspection of calves reveal right LE > left LE. They are non- tender. 1+ edema on RLE. Erythematous discoloration of RLE to ankle. NEURO: No gross focal motor deficits noted. CN II-XII grossly in tact. . SKIN: Rash consistent with cellulitis. No jaundice noted. PSYCH: Flat mood and affect. Cooperative. Exam as done by Barb Alvarado MD, [employer]. Discharge Data Allergies Allergy/AdvReac Type Severity Reaction Status Date / Time rivaroxaban Allergy Severe tongue Verified 03/09/19 12:20 swelled, hands swelled, redness, itching Consultations 03/29/19 18:18 ED Decision to Admit Stat 03/29/19 20:47 Consult Psychiatry Routine 03/31/19 11:24 Consult Case Management - Discharge Planning Routine Ordered Studies 03/29/19 15:52 CT head/brain wo con Stat US venous doppler LE RT Stat Hospital Course (1) Cellulitis: 59-year-old male here for right lower extremity cellulitis, chronic DVT, medication noncompliance including medication for his depression, anxiety, psychosis, as well as his DVT. Cellulitis -Continues to improve. Patient tolerating p.o. medications -- Continue Keflex 500 mg 4 times daily -- last day is 20Sept. X-ray negative for osteomyelitis or fracture DVT -US RLE + dvt. Continue Lovenox until INR is 2.0, then resume monotherapy with warfarin. Follow INR, goal 2-3.0. Subtherapeutic INR upon admission. Resolved, now trying to return to therapeutic range. Altered mental status Continues to improve Agrees to treatment Psychiatry consulted, appreciate recommendations scheduled lorazepam 2 mg twice daily per recommendations, PRN Lorazepam and Haldol for acute agitation. One to one PRN, continue to assess capacity. Brother is next to kin supports use of restraints, chemical sedation and 302. Multifactorialknown h/o depression with delusions, delirium on cellulitis, medication nonadherence -Head CT negative FEN/GI: regular diet as tolerated DVT ppx: Lovenox, bridging warfarin CODE STATUS: FULL DISPO: MED/SURG - possible for psych admission once medically stable. (2) Altered mental status: (3) Depression: (4) DVT (deep venous thrombosis): (5) Factor V Leiden mutation: (6) Anxiety: Total Time Total Time Spent Total Time Spent (In Minutes): 30 Discharge Plan Discharge Items Patient Disposition: Transfer Behavioral Health Fac Reason For Visit: CELLULITIS, AMS Discharge Diagnosis: cellulitis , AMS Activity: Per Instructions section Non-emergency contact: Primary Care Provider Call non-emergency contact if: you have any medication questions Follow-up/Referrals: Catalina Todd MD [Primary Care Provider] - Diet: Regular Addtl Attending Provider Instructions: You were admitted due to concern for worsening cellulitis in your lower extremity. We treated this with IV antibiotics and then oral. You will continue this medicine until it is completed. Please also continue treatment for your DVT with lovenox and then just coumadin. Will need to be bridged with lovenox (on top of his coumadin) until INR is at 2.0 - then can resume monotherapy with coumadin. Pending Studies at Discharge: No Stand-Alone Forms: My [facility] Medications and DC Order Prescriptions: New cephalexin 500 mg Capsule 500 mg PO QID 5 Days Qty: 20 RF: 0 enoxaparin [Lovenox] 150 mg/mL Syringe 150 mg subcut Q24H 4 Days Qty: 4 RF: 0 Continued simvastatin 40 mg tablet 40 mg PO HS Qty: 30 RF: 5 sertraline 100 mg Tablet 200 mg PO QAM Qty: 60 RF: 0 warfarin 10 mg tablet 5 - 10 mg PO UD RF: 0 buspirone 10 mg tablet 10 mg PO TID RF: 0 bupropion HCl [Wellbutrin SR] 100 mg tablet sustained-release 12 hr 100 mg PO DAILY RF: 0 trazodone 100 mg tablet 100 mg PO HS PRN (Reason: Sleep) RF: 0 No Action minocycline 100 mg capsule 100 mg PO DAILY Qty: 30 RF: 5 Discharge Orders: Discharge Order (Routine); Ordered 04/04/19 Ordered By: Barb Alvarado Admission Data Admit Date/Time: 03/31/19 08:11 Attending Provider: Albert Perez Admit Provider: Dian Nick Primary Care Provider: Catalina Todd Other Providers: Dian Nick ; Ginger Vann ; Colton Ballesteros Other Interventions: Discharge Summary Assessment (RN) Last Done: 04/04/19 16:31 DC Date/Time DO NOT enter until pt leaves facility: 04/04/19 16:39 Supervising Physician Co-Signing Physician Notes I personally examined the patient and verified all johnson points of history and exam, discussed case, and agree with decision making with Dr Alvarado. Patient lying in bed whenever I see him, laying on his side asleep. He awakens easily. Interacts minimally. I am unable to get much of any meaningful interaction with him as he is quite withdrawn. Case discussed with Dr. Vann, I believe her concerns about the patient's mental status and safety are extremely valid. Especially given his presentation, high likelihood of noncompliance, history of psychosis, and recent history of psychiatric instability. Vitals noted, in general he is awake and alert sleeping on his side awakens appears to be in no physical distress. HEENT normocephalic atraumatic mucous membranes moist. Breathing unlabored no accessory muscle use good effort. Skin shows no rashes, no pallor, no icterus. Right calf with some dull chronic appearing changes but no tenderness and no erythema. Cellulitisfinish a course of cephalexin. Stable for discharge to inpatient psychiatry DVThigh concern on noncompliance with Coumadin given his psychiatric history decompensating. Lovenox bridge to Coumadin, fortunately his DVT appears more chronic than acute, so the likelihood of a downstream venous thromboembolic event appears highly unlikely. Stable for transfer to inpatient psych, agree completely with the need for inpatient psych to keep him safe given his overall psychosis, and presentation. Otherwise as above Resident Activity Tracking Resident Involvement: Resident Care Provided Care Provided: Adult Hospital Medicine
--- NOTE | 2019-04-04 16:38 | Psychiatric Progress Note ---
Date of Service April 04, 2019 Impression / Recommendations Impression Mr. Romero is a 59-year-old single male with a history of psychotic depression and multiple medical problems who presented with altered mental status, depression, anxiety, somatic delusions, and periods of unresponsiveness. He has been treated for cellulitis and DVT, and is now on oral antibiotics and medically stable for transfer to the behavioral health unit for treatment of psychotic depression. He has developed symptoms of catatonia as well, which has responded to lorazepam 2 mg twice daily.. (1) Altered mental status: 03/30 -likely multifactorial with differential as above. -We will continue to monitor as his infection improves. 03/31 -patient more agitated, uncooperative with the assessment, refusing all treatment including antibiotics and psychotropic medications. -Lorazepam IM may be helpful for agitation and anxiety, and haloperidol 5-10 mg IM for severe agitation or psychosis. 04/01 -patient remains intermittently agitated and uncooperative, noncompliant with oral medications. He has olanzapine 10 mg IM ordered nightly, but only received it once on 03/31/2019. 04/04 -catatonia improving with lorazepam 2 mg twice daily; continue. (2) Depression: 03/30 -discussed with primary attending, Dr. Anaya. Continue home dose of bupropion and will resume sertraline as I have a low suspicion for serotonin syndrome. Will continue to hold trazodone and buspirone for now, as it is unclear to me if he was compliant with medications at home and want to minimize excessive medications due to fragility at this time. -Patient has done well with quetiapine in the past, which could be helpful now to target both chronic delusions as well as confusion and rumination. Will order 50 mg at bedtime and 25 mg every 4 hours as needed during the day as needed. -Get records from outpatient psychiatrist Dr. Harrington. -Thank you for the consult, we will continue to follow. 03/31-patient is now refusing all p.o. medications. Continue to offer quetiapine if he will accept oral medications, otherwise recommend IM medications as above. 04/02 -hold bupropion as patient has been refusing it. Continue to offer quetiap ine, as he responded to this well in the past. 04/04 -patient unwilling for voluntary psychiatric hospitalization, so will pursue 302 involuntary commitment due to the ongoing risk of harm to himself if his psychotic depression and catatonia are not adequately treated. As a result of his severe depression, he was not taking medications regularly at home, which led to his DVT and then cellulitis. For now we will continue sertraline 200 mg daily and quetiapine 50 mg at bedtime, and we will continue to titrate medications on the behavioral health unit. Risk Factors Assessment Do You Have Access To A Gun?: No Interval History Identifying Information YINKA ROMERO is a 58-year-old M who currently lives in an [place] alone, has a history of recurrent, severe depression with psychosis, anxiety NOS, factor V Leiden mutation, and history of DVT/PE on chronic anticoagulation who is hospitalized medically for altered mental status, DVT, and cellulitis. Psychiatry was consulted for altered mental status and concern for serotonin syndrome. Chief Complaint "Best as possible I guess". Review of Systems Notes Denies hallucinations, HI; + low energy and motivation Subjective Subjective Patient was seen & assessed and interval progress reviewed with the liaison nurse and primary attending, Dr. Perez. He has been more cooperative over the past day and a half, taking oral antibiotics and his antidepressant. He has also received Lorazepam 2 mg twice daily. On my assessment today, he was seen with Alma Yost and Josias Celeste MS2, with his permission. He reports that he is physically feeling "a little better," but mood remains depressed. He states he was not regularly taking his medications at home, noting that he was "trying to, but I have too much to remember to do." He denies suicidal thoughts, but continues to report a belief that he will very soon due to severe medical conditions. Although he admits he was not caring for himself at home, he states he does not want to be admitted psychiatrically, stating he is "not real excited about it," and that he will "probably get arrested, you're going to find a way to ruin any time I have left." Physical Exam Psychiatric Only partially cooperative with the assessment. Dressed in a hospital gown, lying face down on his mattress. Briefly opens eyes, but avoids eye contact. Motor Behavior: + psychomotor retardation Speech is slowed, delayed, minimal. Affect: + depressed affect, + constricted affect and mood congruent with affect Mood: + depressed mood Thought Process: + concrete thought process Thought Content: + delusions, + persecution and + hopelessness Suicidal Thoughts: denies suicidal thoughts Homicidal Thoughts: denies homicidal thoughts Hallucinations: no auditory hallucinations and no visual hallucinations Cognition: language grossly intact; + recent memory not intact and + attention not intact Insight: + impaired insight Judgement: + impaired judgement Vital Signs (Past 24 Hours) Last Vital Signs Temp 36.5 C 04/04/19 15:23 Pulse 68 04/04/19 15:23 Resp 17 04/04/19 15:23 BP 156/89 H 04/04/19 15:23 Pulse Ox 96 04/04/19 15:23 Results & Data Laboratory Results Laboratory Results - last 24 hr 04/04/19 04/04/19 05:09 05:09 PT 12.8 H INR 1.3 H Sodium 143 Potassium 3.7 Chloride 109 H Carbon Dioxide 27 Anion Gap 7.0 BUN 17 Creatinine 0.86 Est Cr Clr Drug Dosing 108.3 Est GFR ( Amer) 108.5 Est GFR (Non-Af Amer) 93.6 BUN/Creatinine Ratio 19.7 Glucose 98 Calcium 9.0 Total Bilirubin 0.4 AST 28 ALT 40 Alkaline Phosphatase 43 L Total Protein 6.0 L Albumin 2.7 L Globulin 3.3 Albumin/Globulin Ratio 0.8 L Current Inpatient Medications Current Inpatient Medications: Current Inpatient Medications Bupropion HCl (Wellbutrin-Sr) 100 mg PO DAILY [facility] Stop: 04/29/19 08:59 Last Admin: 04/02/19 08:01 Dose: Not Given Documented by: Cephalexin HCl (Keflex) 500 mg PO QID [facility] Stop: 04/07/19 00:59 Last Admin: 04/04/19 16:16 Dose: 500 mg Documented by: Enoxaparin Sodium (Lovenox) 150 mg SQ Q24H SETH Stop: 05/01/19 13:59 Last Admin: 04/04/19 13:53 Dose: 150 mg Documented by: Haloperidol Lactate (Haldol) 2 mg IM Q4H PRN PRN Reason: Anxiety/Agitation Stop: 04/30/19 11:38 Lorazepam (Ativan) 2 mg IM Q2H PRN PRN Reason: Agitation Stop: 04/30/19 18:44 Last Admin: 04/02/19 17:37 Dose: 2 mg Documented by: Lorazepam (Ativan) 2 mg PO Q12 [facility] Stop: 05/03/19 12:59 Last Admin: 04/04/19 08:44 Dose: 2 mg Documented by: Olanzapine (Zyprexa) 10 mg IM HS [facility] Stop: 04/30/19 20:59 Last Admin: 04/02/19 23:08 Dose: Not Given Documented by: Quetiapine Fumarate (Seroquel) 50 mg PO HS [facility] Stop: 04/29/19 20:59 Last Admin: 04/03/19 21:39 Dose: 50 mg Documented by: Quetiapine Fumarate (Seroquel) 25 mg PO Q4 PRN PRN Reason: anxiety or psychosis Stop: 04/29/19 19:59 Last Admin: 03/31/19 13:42 Dose: 25 mg Documented by: Sertraline HCl (Zoloft) 200 mg PO QAM [facility] Stop: 04/30/19 08:59 Last Admin: 04/04/19 08:45 Dose: 200 mg Documented by: Warfarin Sodium (Coumadin) 5 mg PO DAILY@1600 [facility] Stop: 05/03/19 15:59 Last Admin: 04/04/19 16:17 Dose: 5 mg Documented by: CPT Code CPT Code 24970 (1) Altered mental status Altered mental status type: unspecified Qualified Code(s): R41.82 - Altered mental status, unspecified (2) Depression Active/Remission status: remission status unspecified Depression Type: major depressive disorder Major depression recurrence: recurrent Qualified Code(s): F33.9 - Major depressive disorder, recurrent, unspecified
[2019-04-05] MEDS ORDERED: VANCOMYCIN TROUGH ONE (04:30)
== END 2019-04-04 16:39 | DRG 603 ==
LOC: 4W 15:47 → ED 15:47 → SUATTDRO 18:50 → 4W 20:18 → SUATTDRO 03-31 08:11
DX: Z79.01 Long term (current) use of anticoagulants; L03.115 Cellulitis of right lower limb; E78.5 Hyperlipidemia, unspecified; R73.01 Impaired fasting glucose; D68.51 Activated protein C resistance; F33.9 Major depressive disorder, recurrent, unspecified; Z86.711 Personal history of pulmonary embolism; I82.501 Chronic embolism and thrombosis of unspecified deep veins of right lower extremity; E86.0 Dehydration

== ENCOUNTER 2019-04-04 16:39 | Inpatient (IN) ==
[2019-04-04] MEDS ORDERED: MAGNESIUM HYDROXIDE SUSP 30 ML UDC PO PRN (17:31)
[2019-04-04] MEDS ORDERED: ALUMINUM/MAGNESIUM SUSP 30 ML UDC PO PRN (17:31)
[2019-04-04] MEDS ORDERED: SODIUM CHLORIDE 0.65% NA SOLN 45 ML (OCEAN) PRN (17:31)
[2019-04-04] MEDS ORDERED: TRAZODONE HCL 100 MG TAB PO PRN (17:34)
[2019-04-04] MEDS: LORazepam 1 MG TAB PO SCH (22:04)
[2019-04-04] MEDS: cephALEXin 500 MG CAP PO SCH (22:05)
[2019-04-04] MEDS: QUETIAPINE FUMARATE 25 MG TABLET PO SCH (22:05)
[2019-04-04] MEDS: SIMVASTATIN 40 MG TAB PO SCH (22:05)
[2019-04-05] MEDS: cephALEXin 500 MG CAP PO SCH ×5 (08:07→21:08)
[2019-04-05] MEDS: LORazepam 1 MG TAB PO SCH ×3 (08:07→21:08)
[2019-04-05] MEDS: SERTRALINE HCL 100 MG TABLET PO SCH (08:07)
[2019-04-05 08:19] LABS: INR 1.2 (0.9-1.1); Prothrombin Time 12.4 Seconds (9.0-12.0)
--- NOTE | 2019-04-05 08:38 | History & Physical ---
Date of Service April 05, 2019 Impression / Recommendations Surya Howard is a 59-year-old single male with a history of severe psychotic depression and generalized anxiety, as well as long-standing treatment nonadherence which has resulted in involuntary outpatient commitment, who was just discharged from our unit 2 weeks prior to being hospitalized medically for DVT and lower extremity cellulitis in the context of medication nonadherence at home. He decompensated rapidly after discharge from the behavioral health unit, and was seen in the ER 3 times before he was ultimately hospitalized. He admits he was noncompliant with medications at home, which likely led to his DVT and cellulitis, as well as his psychiatric decompensation. Although he has had a good response to sertraline and quetiapine in the past, he is refusing these medications here for unclear reasons, other than his belief that his life is over and he is going to at any moment. He is also refusing oral antibiotics and Coumadin. His INR remains subtherapeutic which places him at ongoing risk for DVT/PE. He continues to express delusions of persecution, hopelessness, and is unable to rationally manipulate information or appreciate the consequences of his actions. His brother is his power of attorney recruiter, and we will attempt to enlist him in assisting with treatment decisions. As he was on an involuntary outpatient commitment, we will schedule a conversion hearing for later this week. Inpatient treatment is medically necessary due to the risk of , disability, or serious injury if discharged, which is as a direct result of his mental illness, which impairs his judgment. It appears likely that he will need a supervised living situation at discharge, as he is not able to care for himself living independently in the community. (1) Depression: 04/05 -continue sertraline 200 mg daily and quetiapine 50 mg at bedtime, which he is intermittently refusing. If he does not become more compliant with oral medications, we will pursue medications over objection, as his psychotic depression is unlikely to remit without medication, and he has responded well to these medications in the past. -Get records from outpatient psychiatrist, and coordinate care with his outpatient therapist and rifle case repairer. -Brother, Amie, is his power of attorney recruiter we will enlist his assistance with medical decision making as the patient currently lacks capacity to refuse the recommended treatment. -Encourage patient to be out of bed during the day and participating in groups and therapy. Consider locking his door during group time if he is unable to do this on his own. -He was on an involuntary outpatient commitment, so we will file for a conversion hearing to convert to 304 involuntary treatment. Depression Type: major depressive disorder Major depression recurrence: recurrent Active/Remission status: currently active Major depression episode severity: severe Psychotic features: with psychotic features Qualified Code(s): F33.3 - Major depressive disorder, recurrent, severe with psychotic symptoms Present on Admission?: Yes (2) Catatonia: 04/05 -continue Lorazepam 2 mg twice daily and taper over hospital stay. Continue to treat underlying medical conditions as below. Present on Admission?: Yes (3) Generalized anxiety disorder: 04/05 -continue SSRI and lorazepam as above, offer hydroxyzine as needed for anxiety. Consider resuming buspirone if indicated. Present on Admission?: Yes (4) Cellulitis: 04/05 -complete course of Keflex, last dose 04/08/2019. Infection is resolving. Site of cellulitis: unspecified site Qualified Code(s): L03.90 - Cellulitis, unspecified Present on Admission?: Yes (5) DVT (deep venous thrombosis): 04/05 -continue Coumadin 5 mg daily, daily PT/INR, and Lovenox until INR is therapeutic. Coordinate care with Dr. Loyola, who sees him at the anticoagulation clinic. DVT location: lower extremity Present on Admission?: Yes (6) Hyperlipidemia: 04/05 -continue home statin. Hyperlipidemia type: unspecified Qualified Code(s): E78.5 - Hyperlipidemia, unspecified Present on Admission?: Yes Inventory Assets Strengths: Educated, supportive family Needs: Compliance with treatment, increase community supports Risk Factors Assessment Male: Yes : Yes Do You Have Access To A Gun?: No Health Problems: Yes Mental Health Diagnoses: Yes Substance Use Disorders: No Previous Attempt: Yes Family History of Suicide: No Previous Psychiatric Hospitalization: Yes Hopelessness: Yes Smoker: No Protective Factors Assessment Mormonism Beliefs: No : No Responsible for Young Children: No Employed: No Stable Relationships: Yes Supportive Family: Yes Good Rapport with Provider: No Psychiatric History Identifying Data YINKA ROMERO is a 59-year-old M who currently lives alone in an [place], has a history of depression with psychosis, generalized anxiety disorder, treatment nonadherence and was on an involuntary outpatient commitment, and was admitted on 04/04/19 16:39 on a 302 involuntary commitment for depression with psychosis, treatment nonadherence, and inability to care for himself. Chief Complaint "You guys never give up, do you?" History of Present Illness Patient is well-known to me from several previous hospitalizations, most recently on psychiatric inpatient unit from 02/17/19 - 03/09/19 for for recurrent, severe MDD with psychosis s/p intentional OD with OTC sleep medications. He was discharged on a 304 involuntary outpatient commitment with outpatient treatment at [facility] with Dr. Harrington and therapy at [facility] with Juan Menendez. He presented to the ER several times in the 2 weeks since discharge; 03/19/2019 with complaints of head pain, neck pain, cold all over, chills, and lightheadedness. His sister in law stated he had continued to struggle and had called her that day stating he was dying. She was concerned that he was not eating or taking his medications properly. He was seen by the ER site rifle case repairer and reported that he had been diagnosed with diabetes, although medical records did not support that. He was ultimately discharged home. He returned to the ER 03/24/2019 reporting that he has diabetes and is losing his hearing and eyesight, had no feeling in his legs, and was sleeping poorly. He was again seen by the ER site rifle case repairer and was focused on having diabetes as well as multiple other medical problems, saying he could not even walk, his health was so poor. He denied suicidal thoughts, but reported ongoing loneliness, and refused voluntary psychiatric hospitalization, so was discharged home. 03/29/2019 he presented to the ER with confusion and persistent right lower extremity pain and swelling x2 days. His [id number] was concerned about the state of his right lower extremity, so contacted his outpatient rifle case repairer, who went to the patient's house. The patient did not answer the door, so police were notified. They entered the home and interacted with the patient, who was initially responsive, but at some point stopped responding to them, so was brought into the hospital. In the ER, he was nonverbal but awake and alert, following commands, and was found to have extensive nonocclusive thrombus in the popliteal vein of the right lower extremity. He had a head CT which was normal, and chest x-ray which showed slightly prominent basilar markings. Laboratory data was notable for normal WBCs, INR of 4.1, potassium of 3.4 but electrolytes otherwise normal, and UA with 2+ ketones. UDS was negative. He was also diagnosed with cellulitis of the right lower extremity, and was started on antibiotics and IV fluids for dehydration, and Coumadin was held due to supratherapeutic INR. His home psychotropic medications include bupropion, sertraline, trazodone, and buspirone; sertraline and trazodone were held due to concerns for serotonin syndrome, although this was thought to be unlikely due to lack of clonus, fever, hypertension. He was seen by myself on the psychiatric consult service 03/30/2019 for altered mental status; he had had episodes of unresponsiveness even to painful stimuli, which was not consistent with s erotonin syndrome, and also lacked other signs of serotonin syndrome, so that was thought to be unlikely. The differential included delirium, catatonia, and severe psychotic depression, or some combination of those. Sertraline 200 mg daily and bupropion SR 100 mg daily were continued, while trazodone and buspirone were held. Quetiapine 50 mg at bedtime and 25 mg every 4 hours as needed was added to target psychosis and agitation, as he has responded well to this medication in the past. He was on the hospitalist service for 7 days, often noncompliant with treatment, refusing IV antibiotics at times, refusing oral medications intermittently, and refusing to allow staff to examine him. The bupropion was ultimately discontinued as he was refusing it, and he received 1 dose of olanzapine 10 mg IM for psychosis and agitation. He often refused to talk to clinicians when they came in the room, although he was alert and able to speak. He was seen by 2 physicians who agreed he lacked capacity to make medical decisions, and his brother who is his POA was enlisted to assist with treatment decisions. His behavior vacillated between mutism and refusal to participate in assessments and agitation, with loud, disorganized speech and anger at hospital staff. He expressed long-standing delusions that other males in his family were genetically perfect, "had the organs of a 20-year-old," and would live forever, while he was irreparably damaged by his bad genetic material. He was started on lorazepam for catatonia, which appeared beneficial, so it was scheduled 2 mg p.o. twice daily. His last 2 days on the hospitalist service he was more compliant with treatment, was switched to oral antibiotics which he took without difficulty, and was taking sertraline and lorazepam daily as scheduled. Upon medical clearance yesterday, he declined voluntary psychiatric treatment, so was admitted on a 302 involuntary commitment. During the admission nursing assessment, he was fixated on delusions that he was brought here to because he has complications of from diabetes. He ruminated on his past and mistakes he made when he was younger. He has been isolating in his room in bed and declining groups. This morning, he refused his antibiotic, antidepressant, and lorazepam. On my assessment, he refused to get out of bed to come to the interview room, stating "I've given up." He then closed his eyes, lay his head down, crossed his arms, and refused to respond to any further questions or to participate in the admission assessment. Past Psychiatric History Previous Psych History: Long-standing recurrent psychotic depression and anxiety. History of treatment noncompliance, and history of ECT. Current Psychiatric Diagnosis: MDR with psychosis, [facility] Outpatient Services: [facility] - Dr. Harrington Therapy with Joshua Menendez at [facility] rifle case repairer Av Perez [facility] Discharged from most recent hospitalization here 03/09/2019 on a 304 involuntary outpatient commitment Previous Psych Admissions: This is his fourth admission to the behavioral health unit; was here for 20 days and discharged 03/09/2019 for psychotic depression and generalized anxiety disorder, treatment nonadherence, and inability to care for himself. Hospitalized here twice in November and December 2015 for the same, discharged on a 304 involuntary outpatient commitment. Multiple hospitalizations at [facility] (there for >2 months in 2013). Hospitalized at [facility] for ECT in 2013. Do You Have Access To A Gun?: No History of Previous Suicide Attempt: Yes Describe Attempts in the Past: OD on sleeping pills 2015 -took 50-150 pills over a 3-day period. Past Medication Trials: Include but not limited to: Quetiapine -discharged on 200 mg at bedtime at the time of 12/2015 hospitalization Olanzapine -received one 10 mg IM dose when hospitalized medically Sertraline -discharged on 200 mg daily in 12/2015 Bupropion SR Buspirone Lorazepam -started during medical hospitalization 03/2019 for catatonia Clonazepam Hydroxyzine Trazodone Allergies Allergy/AdvReac Type Severity Reaction Status Date / Time rivaroxaban Allergy Severe tongue Verified 03/09/19 12:20 swelled, hands swelled, redness, itching Home Medications Home Medications Medication Instructions Recorded Confirmed Type simvastatin 40 mg tablet 40 mg PO HS #30 tab 02/15/19 04/04/19 Rx minocycline 100 mg capsule 100 mg PO DAILY #30 cap 03/09/19 03/29/19 Rx sertraline 200 mg PO QAM #60 tab 03/09/19 04/04/19 Rx bupropion HCl [Wellbutrin SR] 100 mg PO DAILY 03/29/19 04/04/19 History buspirone 10 mg PO TID 03/29/19 04/04/19 History trazodone 100 mg PO HS PRN 03/29/19 04/04/19 History warfarin 5 - 10 mg PO UD 03/29/19 04/04/19 History cephalexin 500 mg PO QID 5 Days #20 cap 04/04/19 04/04/19 Rx enoxaparin [Lovenox] 150 mg SUBCUT Q24H 4 Days #4 ml 04/04/19 04/04/19 Rx Family History Family History of: None Family Mental Health History Comment: Patient denies family history of mental health issues, but reportedly when he was on the medical service his [id number] and reported that his twin brother also suffers from similar problems. Alcohol History Hx of Alcohol Use Over the Past 12 Months: No AUDIT Total Score: 0 Smoking Use Have You Smoked or Used Tobacco Products in the Last 30 Days: No tobacco type: cigarettes Smoking Status: Former smoker Substance History Hx of Prescription Med Misuse Over the Past 12 Months: No Hx of Over the Counter Med Misuse Over the Past 12 Months: No Hx of Inhalent Misuse Over the Past 12 Months: No Hx of Organic Substance Use Over the Past 12 Months: No Hx of Illegal Substances/Street Drug Use Over Past 12 Months: No Problems as a Result of Past Substance Use: None Identified Personal History Living Arrangements: Apartment Living Arrangements Comments: Alone in an [place] Childhood: Grew up locally, raised by both parents who are now . He has a twin brother, 2 other brothers, and a sister. Siblings live in [place], [place], and twin brother a couple hours away. 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 He was laid off, and then worked a variety of other jobs. Last worked >3 years ago at [employer], now retired and on disability. Employment Status: Disabled Marital Status: Single (Never ) Number Of Children: 0 Beliefs That Will Affect Care: None Current Legal Problems: No Hx Legal Problems: No Hx Traumatic Life Events: No Patient History Medical History Impaired fasting glucose (Acute) Hyperlipidemia (Acute) Factor V Leiden mutation (Acute) DVT (deep venous thrombosis) (Acute) Depression (Chronic) Bilateral pulmonary embolism Right heart failure due to pulmonary hypertension Left shoulder pain (Resolved) Surgical History No pertinent past surgical history Social History Preferred Language: Korean Communication Ability: Effective Visual Impairment: No Limitations Hearing Ability: Normal Event Coordinator Marketing And Sales Required: No Beliefs That Will Affect Care: None Current Living Situation: Alone Current Living Situation Comment: unable to document, pt nonverbal at this time, no family in room Feels Safe at Home: Yes Smoking Status: Former smoker Tobacco Type: cigarettes ; Review of Systems Review of Systems: Unobtainable due to mental health condition Physical Exam Psychiatric: Orientation: alert; + uncooperative Apperance: appropriately dressed, + disheveled and appeared stated age; + inappropriately groomed Eye Contact: + poor eye contact Closes eyes tightly. Motor Behavior: no abnormal motor movements Minimal initially, then mute. Affect: + depressed affect, + irritable affect and + constricted affect Thought Process: goal directed thought process Thought Content: + cognitive distortions and + persecution Negative Will not answer. Will not answer. Will not answer. Insight: + severely impaired insight (Refusing medications for serious medical and mental health conditions) Judgement: + severely impaired judgement (Refusing medications despite recent medical complications of nonadherence) Vital Signs (Past 24 Hours): Last Vital Signs Temp 36.6 C 04/05/19 06:40 Pulse 72 04/05/19 06:41 Resp 18 04/05/19 06:40 BP 127/84 04/05/19 06:41 Exam Statement: A physical exam was performed on the medical floor prior to admission to the unit by Dr. Hernandez. I accept that physical as correct/medical clearance for the inpatient physical exam. Results & Data Laboratory Results Laboratory Results - last 24 hr 04/05/19 07:53 PT 12.4 H INR 1.2 H Current Inpatient Medications Current Inpatient Medications: Current Inpatient Medications Acetaminophen (Tylenol) 650 mg PO Q4H PRN PRN Reason: Headache or Minor Fever Stop: 05/04/19 17:30 Al Hydrox/Mg Hydrox/Simethicone (Maalox) 30 ml PO Q4H PRN PRN Reason: GI Upset Stop: 05/04/19 17:30 Cephalexin HCl (Keflex) 500 mg PO QID SETH; Protocol Stop: 04/13/19 20:59 Last Admin: 04/05/19 08:07 Dose: Not Given Documented by: Enoxaparin Sodium (Lovenox) 150 mg SQ Q24H SETH Stop: 05/05/19 13:59 Hydroxyzine HCl (Vistaril) 50 mg PO HSZ PRN PRN Reason: Insomnia Stop: 05/04/19 17:30 Hydroxyzine HCl (Vistaril) 25 mg PO Q4H PRN PRN Reason: Anxiety Stop: 05/04/19 17:30 Lorazepam (Ativan) 2 mg PO BID SETH Stop: 05/04/19 20:59 Last Admin: 04/05/19 08:07 Dose: Not Given Documented by: Magnesium Hydroxide (Milk Of Magnesia) 30 ml PO DAILY PRN PRN Reason: Constipation Stop: 05/04/19 17:30 Quetiapine Fumarate (Seroquel) 50 mg PO HS SETH Stop: 05/04/19 21:59 Last Admin: 04/04/19 22:05 Dose: 50 mg Documented by: Sertraline HCl (Zoloft) 200 mg PO QAM SETH Stop: 05/05/19 08:59 Last Admin: 04/05/19 08:07 Dose: Not Given Documented by: Simvastatin (Zocor) 40 mg PO HS SETH Stop: 05/04/19 21:59 Last Admin: 04/04/19 22:05 Dose: 40 mg Documented by: Sodium Chloride ([place] Nasal) 1 - 2 sprays NA PRN PRN PRN Reason: Nasal Dryness/Congestion Stop: 05/04/19 17:30 Trazodone HCl (Desyrel) 100 mg PO HS PRN PRN Reason: Sleep Stop: 05/04/19 17:33 Warfarin Sodium (Coumadin) 5 mg PO DAILY@1600 SETH Stop: 05/05/19 15:59 CPT Code CPT Code Initial Hospital Care: [id number]
[2019-04-05] MEDS: ENOXAPARIN 150 MG/ML SYR SQ SCH (13:24)
[2019-04-05] MEDS: WARFARIN SOD 5 MG TAB PO SCH (16:06)
[2019-04-05] MEDS: SIMVASTATIN 40 MG TAB PO SCH (21:03)
[2019-04-05] MEDS: QUETIAPINE FUMARATE 25 MG TABLET PO SCH (21:08)
[2019-04-06] MEDS: LORazepam 1 MG TAB PO SCH ×2 (08:34→21:03)
[2019-04-06] MEDS: SERTRALINE HCL 100 MG TABLET PO SCH (08:34)
[2019-04-06] MEDS: cephALEXin 500 MG CAP PO SCH ×4 (08:34→21:03)
--- NOTE | 2019-04-06 09:53 | Psychiatric Progress Note ---
Date of Service April 06, 2019 Impression / Recommendations Surya Howard is a 59-year-old single male with a history of severe psychotic depression and generalized anxiety, as well as long-standing treatment nonadherence which has resulted in involuntary outpatient commitment, who was just discharged from our unit 2 weeks prior to being hospitalized medically for DVT and lower extremity cellulitis in the context of medication nonadherence at home. He decompensated rapidly after discharge from the behavioral health unit, and was seen in the ER 3 times before he was ultimately hospitalized. He admits he was noncompliant with medications at home, which likely led to his DVT and cellulitis, as well as his psychiatric decompensation. Although he has had a good response to sertraline and quetiapine in the past, he is refusing these medications here for unclear reasons, other than his belief that his life is over and he is going to at any moment. He is also intermittently refusing oral antibiotics, Coumadin, and daily blood draws to follow his INR. His INR remains subtherapeutic which places him at ongoing risk for DVT/PE, so we have continued Lovenox daily. He continues to express delusions of persecution, hopelessness, and is unable to rationally manipulate information or appreciate the consequences of his actions. He has a 304 conversion hearing scheduled on Thursday. Inpatient treatment is medically necessary due to the risk of , disability, or serious injury if discharged, which is as a direct result of his mental illness, which impairs his judgment. It appears likely that he will need a supervised living situation at discharge, as he is not able to care for himself living independently in the community. (1) Depression: 04/05 -continue sertraline 200 mg daily and quetiapine 50 mg at bedtime, w hich he is intermittently refusing. If he does not become more compliant with oral medications, we will pursue medications over objection, as his psychotic depression is unlikely to remit without medication, and he has responded well to these medications in the past. -Get records from outpatient psychiatrist, and coordinate care with his outpatient therapist and case packer and sealer. -Brother, Amie, is his power of title attorney we will enlist his assistance with medical decision making as the patient currently lacks capacity to refuse the recommended treatment. -Encourage patient to be out of bed during the day and participating in groups and therapy. Consider locking his door during group time if he is unable to do this on his own. -He was on an involuntary outpatient commitment, so we will file for a conversion hearing to convert to 304 involuntary treatment. 04/06 -patient has refused sertraline the past 2 days, and although he took quetiapine the first night, he refused it last night. He is refusing all groups, has not bathed, and is refusing to eat and less staff bring food to his room. -We will place him in a medically necessary private room due to severity of mood and psychotic symptoms, and request staff to lock his door during group time him to be more engaged in treatment. -Staff contacted the patient's [id number], who clarified that the patient does not actually have a power of title attorney, although this has been documented on admission here. She reported the family is frustrated and concerned with the patient's lack of ability to care for his mental and physical needs. The family has been exploring supportive living, specifically [facility]. -Patient's case packer and sealer, Av Perez, will come in for a meeting tomorrow. (2) Catatonia: 04/05 -continue Lorazepam 2 mg twice daily and taper over hospital stay. Continue to treat underlying medical conditions as below. 04/06 -decrease Lorazepam to 1 mg twice daily, as he is intermittently refusing doses and it has not been overly helpful. (3) Generalized anxiety disorder: 04/05 -continue SSRI and lorazepam as above, offer hydroxyzine as needed for anxiety. Consider resuming buspirone if indicated. (4) Cellulitis: 04/05 -complete course of Keflex, last dose 04/08/2019. Infection is resolving. (5) DVT (deep venous thrombosis): 04/05 -continue Coumadin 5 mg daily, daily PT/INR, and Lovenox until INR is therapeutic. Coordinate care with Dr. Loyola, who sees him at the anticoagulation clinic. (6) Hyperlipidemia: 04/05 -continue home statin. Inventory Assets Strengths: Educated, supportive family Needs: Compliance with treatment, increase community supports Risk Factors Assessment Male: Yes : Yes Do You Have Access To A Gun?: No Health Problems: Yes Mental Health Diagnoses: Yes Substance Use Disorders: No Previous Attempt: Yes Family History of Suicide: No Previous Psychiatric Hospitalization: Yes Hopelessness: Yes Smoker: No Protective Factors Assessment Yazidi Beliefs: No : No Responsible for Young Children: No Employed: No Stable Relationships: Yes Supportive Family: Yes Good Rapport with Provider: No Interval History Chief Complaint "I tell you what, I am dying, going to any second, you're heckling me". Review of Systems Notes States he cannot walk, but has been ambulating to the bathroom. Denies leg pain or swelling, SOB. Sleep Information Total Hours of Sleep: 7.5 Sleep Comments: pt on q-15 minute checks Meal Information Percent Meal Consumed - Breakfast: 50 Percent Meal Consumed - Lunch: 100 Percent Meal Consumed - Dinner: 100 Subjective Subjective Patient was seen & assessed and interval progress reviewed with treatment team. Staff report he refused all his HS meds last night (Keflex, simvastatin, lorazepam, and quetiapine), and also refused his morning sertraline today. He took Coumadin yesterday, but refused blood draw for PT/INR this am. He is refusing to come out of his room, bathe, participate in groups or therapy, and will only eat meals if they are brought to him in his room. He becomes irritable with staff attempts to intervene, and says he does not want any treatment because "I'm just going to anyway." He repeatedly states he is going to at any moment, and told staff yesterday that he did not believe he would live through the day. He was given information about his 306 rights and hearing scheduled for Thursday. On my assessment today, he was seen in his room, as he refused to get up and come to the interview room. He repeatedly states that he is dying, makes angry statements about hospital staff "heckling" him, says that he is just being kept here to make money for the hospital, and that nothing can be done for him. He says he is refusing medications because "nothing will help." He perseverates on how wonderful his life used to be, and how horrible it is now. 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 I ran like the wind. Had an amazing life. I had my dad's abdomen, doctor told him he'd never because his organs were so good." He repeatedly alludes to something happening that ruined his life, he is never been able to recover, and says he "screwed up my sleep pattern, forgot to take my pills for my leg, then this happened." He becomes angry when encouraged to come out of his room to eat breakfast, stating "why do you ask that when you know with some possible." He makes threats that "people are going down, this is unethical, you know I'm dying." When asked why he thinks he is dying, he says he just knows, believes he has diabetes, which he knows because his extremities are cold. He denies leg pain, but insists that he is unable to walk. Physical Exam Psychiatric Overweight white male seated on the edge of his bed, with his head in his hands, back to the door. Disheveled, unkempt, malodorous. Does not make any eye contact, and initially does not respond to attempts to engage him in discussion. No abnormal movements. Gait and station not observed. Speech is irritated tone, normal volume and rate, at times delayed or unresponsive to questions. Affect is restricted to severely depressed and irritable. Thoughts are disorganized, jumping from talking about the remote past to the present, at times responding with unrelated information. Content notable for delusions (that he has diabetes, is going to at any moment, that the hospital staff know this and are keeping him here for nefarious purposes), worthlessness, self- depreciation, and hopelessness. Cognition, memory, and attention are impaired. Insight and judgment are severely impaired as evidenced by his inability to understand his diagnoses, refusal of necessary medical and psychiatric treatment, insistence that he is going to at any moment, and refusal to engage in even basic self-care. Vital Signs (Past 24 Hours) Last Vital Signs Temp 36.6 C 04/06/19 06:48 Pulse 73 04/06/19 06:49 Resp 04/06/19 06:48 BP 143/92 H 04/06/19 06:49 Results & Data Current Inpatient Medications Current Inpatient Medications: Current Inpatient Medications Acetaminophen (Tylenol) 650 mg PO Q4H PRN PRN Reason: Headache or Minor Fever Stop: 05/04/19 17:30 Al Hydrox/Mg Hydrox/Simethicone (Maalox) 30 ml PO Q4H PRN PRN Reason: GI Upset Stop: 05/04/19 17:30 Cephalexin HCl (Keflex) 500 mg PO QID [facility]; Protocol Stop: 04/13/19 20:59 Last Admin: 04/06/19 08:34 Dose: 500 mg Documented by: Enoxaparin Sodium (Lovenox) 150 mg SQ Q24H [facility] Stop: 05/05/19 13:59 Last Admin: 04/05/19 13:24 Dose: 150 mg Documented by: Hydroxyzine HCl (Vistaril) 50 mg PO HSZ PRN PRN Reason: Insomnia Stop: 05/04/19 17:30 Hydroxyzine HCl (Vistaril) 25 mg PO Q4H PRN PRN Reason: Anxiety Stop: 05/04/19 17:30 Lorazepam (Ativan) 2 mg PO BID [facility] Stop: 05/04/19 20:59 Last Admin: 04/06/19 08:34 Dose: 2 mg Documented by: Magnesium Hydroxide (Milk Of Magnesia) 30 ml PO DAILY PRN PRN Reason: Constipation Stop: 05/04/19 17:30 Quetiapine Fumarate (Seroquel) 50 mg PO HS [facility] Stop: 05/04/19 21:59 Last Admin: 04/05/19 21:08 Dose: Not Given Documented by: Sertraline HCl (Zoloft) 200 mg PO QAM [facility] Stop: 05/05/19 08:59 Last Admin: 04/06/19 08:34 Dose: Not Given Documented by: Simvastatin (Zocor) 40 mg PO HS [facility] Stop: 05/04/19 21:59 Last Admin: 04/05/19 21:03 Dose: 40 mg Documented by: Sodium Chloride ([place] Nasal) 1 - 2 sprays NA PRN PRN PRN Reason: Nasal Dryness/Congestion Stop: 05/04/19 17:30 Trazodone HCl (Desyrel) 100 mg PO HS PRN PRN Reason: Sleep Stop: 05/04/19 17:33 Warfarin Sodium (Coumadin) 5 mg PO DAILY@1600 [facility] Stop: 05/05/19 15:59 Last Admin: 04/05/19 16:06 Dose: 5 mg Documented by: Mental Health & Subst Abuse Tx Psychiatrist Name of Psychiatrist: Dr Harrington Time of Appointment with Psychiatrist: Dr Todd Therapist Name of Therapist: Juan Menendez ACSW District Captain Name of District Captain: Av Perez Post Discharge Appointments Primary Care Physician Name Of Family Doctor: Catalina Todd Primary Care Contact Information Discharge Discharge Address: [address] [place] [address] CPT Code CPT Code 85213 (1) DVT (deep venous thrombosis) DVT location: lower extremity (2) Cellulitis Site of cellulitis: unspecified site Qualified Code(s): L03.90 - Cellulitis, unspecified (3) Depression Active/Remission status: currently active Depression Type: major depressive disorder Major depression episode severity: severe Major depression recurrence: recurrent Psychotic features: with psychotic features Qualified Code(s): F33.3 - Major depressive disorder, recurrent, severe with psychotic symptoms (4) Hyperlipidemia Hyperlipidemia type: unspecified Qualified Code(s): E78.5 - Hyperlipidemia, unspecified
[2019-04-06 13:00] LABS: INR 1.2 (0.9-1.1); Prothrombin Time 12.4 Seconds (9.0-12.0)
[2019-04-06] MEDS: ENOXAPARIN 150 MG/ML SYR SQ SCH (13:18)
[2019-04-06] MEDS: WARFARIN SOD 5 MG TAB PO SCH (17:04)
[2019-04-06] MEDS: SIMVASTATIN 40 MG TAB PO SCH (21:03)
[2019-04-06] MEDS: QUETIAPINE FUMARATE 25 MG TABLET PO SCH (21:03)
[2019-04-07] MEDS: cephALEXin 500 MG CAP PO SCH ×4 (08:14→21:31)
[2019-04-07] MEDS: SERTRALINE HCL 100 MG TABLET PO SCH (08:14)
[2019-04-07] MEDS: LORazepam 1 MG TAB PO SCH ×2 (08:14→21:31)
[2019-04-07 08:39] LABS: Hematocrit (blood only) 45.7 % (42-52); Hemoglobin 15.3 g/dL (14.0-18.0); Mean Corpuscular Hemoglobin 29.4 pg (25-34); Mean Corpuscular Hgb Conc 33.5 g/dL (32-36); Mean Corpuscular Volume 87.9 fL (80-100); Mean Platelet Volume 8.9 fL (7.4-10.4); Platelet Count 293 K/uL (130-400); RDW Coefficient of Variation 14.1 % (11.5-14.5); RDW Standard Deviation 45.2 fL (36.4-46.3); White Blood Count 6.68 K/uL (4.8-10.8)
--- NOTE | 2019-04-07 08:44 | Psychiatric Progress Note ---
Date of Service April 07, 2019 Impression / Recommendations Surya Howard is a 59-year-old single male with a history of severe psychotic depression and generalized anxiety, as well as long-standing treatment nonadherence which has resulted in involuntary outpatient commitment, who was just discharged from our unit 2 weeks prior to being hospitalized medically for DVT and lower extremity cellulitis in the context of medication nonadherence at home. He decompensated rapidly after discharge from the behavioral health unit, and was seen in the ER 3 times before he was ultimately hospitalized. He admits he was noncompliant with medications at home, which likely led to his DVT and cellulitis, as well as his psychiatric decompensation. Although he has had a good response to sertraline and quetiapine in the past, he is refusing these medications here for unclear reasons, other than his belief that his life is over and he is going to at any moment. He is also intermittently refusing oral antibiotics, Coumadin, and daily blood draws to follow his INR. His INR remains subtherapeutic which places him at ongoing risk for DVT/PE, so we have continued Lovenox daily. He continues to express delusions of persecution, hopelessness, and is unable to rationally manipulate information or appreciate the consequences of his actions. He has a 304 conversion hearing scheduled on Thursday. Inpatient treatment is medically necessary due to the risk of , disability, or serious injury if discharged, which is as a direct result of his mental illness, which impairs his judgment. It appears likely that he will need a supervised living situation at discharge, as he is not able to care for himself living independently in the community. (1) Depression: 04/05 -continue sertraline 200 mg daily and quetiapine 50 mg at bedtime, w hich he is intermittently refusing. If he does not become more compliant with oral medications, we will pursue medications over objection, as his psychotic depression is unlikely to remit without medication, and he has responded well to these medications in the past. -Get records from outpatient psychiatrist, and coordinate care with his outpatient therapist and case loader operator. -Brother, Amie, is his power of collective bargaining specialist we will enlist his assistance with medical decision making as the patient currently lacks capacity to refuse the recommended treatment. -Encourage patient to be out of bed during the day and participating in groups and therapy. Consider locking his door during group time if he is unable to do this on his own. -He was on an involuntary outpatient commitment, so we will file for a conversion hearing to convert to 304 involuntary treatment. 04/06 -patient has refused sertraline the past 2 days, and although he took quetiapine the first night, he refused it last night. He is refusing all groups, has not bathed, and is refusing to eat and less staff bring food to his room. -We will place him in a medically necessary private room due to severity of mood and psychotic symptoms, and request staff to lock his door during group time him to be more engaged in treatment. -Staff contacted the patient's [id number], who clarified that the patient does not actually have a power of collective bargaining specialist, although this has been documented on admission here. She reported the family is frustrated and concerned with the patient's lack of ability to care for his mental and physical needs. The family has been exploring supportive living, specifically [facility]. -Patient's case loader operator, Av Perez, will come in for a meeting tomorrow. 04/07 -improved medication compliance with staff support; continue sertraline 200 mg daily and increase quetiapine to 100 mg at bedtime. -customer consulting manager, Av Perez, is coming to meet with patient today. (2) Catatonia: 04/05 -continue Lorazepam 2 mg twice daily and taper over hospital stay. Continue to treat underlying medical conditions as below. 04/06 -decrease Lorazepam to 1 mg twice daily, as he is intermittently refusing doses and it has not been overly helpful. (3) Generalized anxiety disorder: 04/05 -continue SSRI and lorazepam as above, offer hydroxyzine as needed for anxiety. Consider resuming buspirone if indicated. (4) Cellulitis: 04/05 -complete course of Keflex, last dose 04/08/2019. Infection is resolving. (5) DVT (deep venous thrombosis): 04/05 -continue Coumadin 5 mg daily, daily PT/INR, and Lovenox until INR is therapeutic. Coordinate care with Dr. Loyola, who sees him at the anticoagulation clinic. 04/07 -INR is 1.2 today, continue Coumadin and Lovenox. Coordinate with Dr. Loyola (6) Hyperlipidemia: 04/05 -continue home statin. Inventory Assets Strengths: Educated, supportive family Needs: Compliance with treatment, increase community supports Risk Factors Assessment Male: Yes : Yes Do You Have Access To A Gun?: No Health Problems: Yes Mental Health Diagnoses: Yes Substance Use Disorders: No Previous Attempt: Yes Family History of Suicide: No Previous Psychiatric Hospitalization: Yes Hopelessness: Yes Smoker: No Protective Factors Assessment Religion Beliefs: No : No Responsible for Young Children: No Employed: No Stable Relationships: Yes Supportive Family: Yes Good Rapport with Provider: No Interval History Identifying Information YINKA ROMERO is a 59-year-old M who currently lives alone in an [place], has a history of depression with psychosis, generalized anxiety disorder, treatment nonadherence and was on an involuntary outpatient commitment, and was admitted o n 04/04/19 16:39 on a 302 involuntary commitment for depression with psychosis, treatment nonadherence, and inability to care for himself. Chief Complaint "Don't feel bad physically, but unfortunately it doesn't make that much of a difference". Review of Systems Sleep Information Total Hours of Sleep: 8 Sleep Comments: pt on q-15 minute checks Meal Information Percent Meal Consumed - Breakfast: 50 Percent Meal Consumed - Lunch: 25 Percent Meal Consumed - Dinner: 100 Subjective Subjective Patient was seen & assessed and interval progress reviewed with nursing and social work. Staff report he remains focused on delusions, talking about his father's superhuman body with organs that were manufactured in [place], but did come out of his room and walked laps around the unit. He initially refused medications and blood draw for PT/INR, but with staff encouragement later ag christiano. He continued to report that he was dying from diabetes, and told staff they enjoyed watching him . He was difficult to reassure. His right leg remains swollen compared to the left, with skin discoloration, but he is consistently denying pain and discomfort, was walking without difficulty. On my assessment today, he reports that he feels better physically, but remains convinced that he has diabetes and is going to at any moment, citing as evidence that he is losing his eyesight and extremities are tingling. He states that he wears glasses and is nearsighted, but his glasses are at home. He endorses anxiety and hopelessness, stating that nothing will help him. He reports good sleep and appetite. He is ruminating on "dumb things" that he did in the past, feeling that he "screwed things up" and it is irreparable. Physical Exam Psychiatric Orientation: alert and cooperative Apperance: appropriately dressed and + disheveled Unkempt, malodorous. Lying in bed, covers pulled up, partially covering his face. Eye Contact: + poor eye contact Motor Behavior: no abnormal motor movements Mumbling, but less latency, and more productive. Affect: + depressed affect, + anxious affect and mood congruent with affect Mood: + depressed mood and + anxious mood Thought Process: + perseveration (That he is dying and has diabetes) Thought Content: + preoccupation, + paranoid, + cognitive distortions, + delu sions, + persecution, + hopelessness, + worthlessness and + self deprecation Suicidal Thoughts: denies suicidal thoughts But believes he is going to at any moment Homicidal Thoughts: denies homicidal thoughts Hallucinations: no auditory hallucinations Cognition: attention grossly intact and language grossly intact; + recent memory not intact and + remote memory not intact Insight: + impaired insight Judgement: + impaired judgement Vital Signs (Past 24 Hours) Last Vital Signs Temp 36.4 C L 04/07/19 06:49 Pulse 69 04/07/19 06:50 Resp 18 04/07/19 06:49 BP 118/83 04/07/19 06:50 Results & Data Laboratory Results Laboratory Results - last 24 hr 04/06/19 04/07/19 04/07/19 12:24 08:09 08:09 WBC 6.68 RBC 5.20 Hgb 15.3 Hct 45.7 MCV 87.9 MCH 29.4 MCHC 33.5 RDW Std Deviation 45.2 RDW Coeff of Christin 14.1 Plt Count 293 MPV 8.9 PT 12.4 H INR 1.2 H Creatinine Pending Est Cr Clr Drug Dosing Pending Est GFR ( Amer) Pending Est GFR (Non-Af Amer) Pending 04/07/19 08:09 WBC RBC Hgb Hct MCV MCH MCHC RDW Std Deviation RDW Coeff of Christin Plt Count MPV PT Pending INR Pending Creatinine Est Cr Clr Drug Dosing Est GFR ( Amer) Est GFR (Non-Af Amer) Current Inpatient Medications Current Inpatient Medications: Current Inpatient Medications Acetaminophen (Tylenol) 650 mg PO Q4H PRN PRN Reason: Headache or Minor Fever Stop: 05/04/19 17:30 Al Hydrox/Mg Hydrox/Simethicone (Maalox) 30 ml PO Q4H PRN PRN Reason: GI Upset Stop: 05/04/19 17:30 Cephalexin HCl (Keflex) 500 mg PO QID [facility]; Protocol Stop: 04/13/19 20:59 Last Admin: 04/07/19 08:14 Dose: 500 mg Documented by: Enoxaparin Sodium (Lovenox) 150 mg SQ Q24H [facility] Stop: 05/05/19 13:59 Last Admin: 04/06/19 13:18 Dose: 150 mg Documented by: Hydroxyzine HCl (Vistaril) 50 mg PO HSZ PRN PRN Reason: Insomnia Stop: 05/04/19 17:30 Hydroxyzine HCl (Vistaril) 25 mg PO Q4H PRN PRN Reason: Anxiety Stop: 05/04/19 17:30 Lorazepam (Ativan) 1 mg PO BID [facility] Stop: 05/06/19 20:59 Last Admin: 04/07/19 08:14 Dose: 1 mg Documented by: Magnesium Hydroxide (Milk Of Magnesia) 30 ml PO DAILY PRN PRN Reason: Constipation Stop: 05/04/19 17:30 Quetiapine Fumarate (Seroquel) 50 mg PO HS [facility] Stop: 05/04/19 21:59 Last Admin: 04/06/19 21:03 Dose: 50 mg Documented by: Sertraline HCl (Zoloft) 200 mg PO QAM [facility] Stop: 05/05/19 08:59 Last Admin: 04/07/19 08:14 Dose: 200 mg Documented by: Simvastatin (Zocor) 40 mg PO HS [facility] Stop: 05/04/19 21:59 Last Admin: 04/06/19 21:03 Dose: 40 mg Documented by: Sodium Chloride ([place] Nasal) 1 - 2 sprays NA PRN PRN PRN Reason: Nasal Dryness/Congestion Stop: 05/04/19 17:30 Trazodone HCl (Desyrel) 100 mg PO HS PRN PRN Reason: Sleep Stop: 05/04/19 17:33 Warfarin Sodium (Coumadin) 5 mg PO DAILY@1600 [facility] Stop: 05/05/19 15:59 Last Admin: 04/06/19 17:04 Dose: 5 mg Documented by: Mental Health & Subst Abuse Tx Psychiatrist Name of Psychiatrist: Dr Harrington Time of Appointment with Psychiatrist: Dr Todd Therapist Name of Therapist: Juan Menendez ACSW Validation Manager Name of Validation Manager: Av Perez Post Discharge Appointments Primary Care Physician Name Of Family Doctor: Catalina Todd Primary Care Contact Information Discharge Discharge Address: [address] [place] [address] CPT Code CPT Code 16689 (1) DVT (deep venous thrombosis) DVT location: lower extremity (2) Cellulitis Site of cellulitis: unspecified site Qualified Code(s): L03.90 - Cellulitis, unspecified (3) Depression Active/Remission status: currently active Depression Type: major depressive disorder Major depression episode severity: severe Major depression recurrence: recurrent Psychotic features: with psychotic features Qualified Code(s): F33.3 - Major depressive disorder, recurrent, severe with psychotic sym ptoms (4) Hyperlipidemia Hyperlipidemia type: unspecified Qualified Code(s): E78.5 - Hyperlipidemia, unspecified
[2019-04-07 08:49] LABS: INR 1.2 (0.9-1.1); Prothrombin Time 12.1 Seconds (9.0-12.0)
[2019-04-07 09:06] LABS: Creatinine Clr Calc Pharmacy 95.8 ml/min; Est GFR (African American) 97.3; Est GFR (Non-African American) 83.9
[2019-04-07] MEDS: ENOXAPARIN 150 MG/ML SYR SQ SCH (13:43)
[2019-04-07] MEDS: WARFARIN SOD 5 MG TAB PO SCH (16:41)
[2019-04-07] MEDS: SIMVASTATIN 40 MG TAB PO SCH (21:32)
[2019-04-07] MEDS ORDERED: QUETIAPINE FUMARATE 100 MG TABLET PO SCH (22:00)
[2019-04-08 08:16] LABS: INR 1.2 (0.9-1.1); Prothrombin Time 12.4 Seconds (9.0-12.0)
--- NOTE | 2019-04-08 09:18 | Psychiatric Progress Note ---
Date of Service April 08, 2019 Impression / Recommendations Surya Howard is a 59-year-old single male with a history of severe psychotic depression and generalized anxiety, as well as long-standing treatment nonadherence which has resulted in involuntary outpatient commitment, who was just discharged from our unit 2 weeks prior to being hospitalized medically for DVT and lower extremity cellulitis in the context of medication nonadherence at home. He decompensated rapidly after discharge from the behavioral health unit, and was seen in the ER 3 times before he was ultimately hospitalized. He admits he was noncompliant with medications at home, which likely led to his DVT and cellulitis, as well as his psychiatric decompensation. Although he has had a good response to sertraline and quetiapine in the past, he is refusing these medications here for unclear reasons, other than his belief that his life is over and he is going to at any moment. He is also intermittently refusing oral antibiotics, Coumadin, and daily blood draws to follow his INR. His INR remains subtherapeutic which places him at ongoing risk for DVT/PE, so we have continued Lovenox daily. He continues to express delusions of persecution, hopelessness, and is unable to rationally manipulate information or appreciate the consequences of his actions. He is on a 304 as of today. Inpatient treatment is medically necessary due to the risk of , disability, or serious injury if discharged, which is as a direct result of his mental illness, which impairs his judgment. It appears likely that he will need a supervised living situation at discharge, as he is not able to care for himself living independently in the community, and is being considered for [facility], but is refusing to sign an YAYA. (1) Depression: 04/05 -continue sertraline 200 mg daily and quetiapine 50 mg at bedtime, which he is intermittently refusing. If he does not become more compliant with oral medications, we will pursue medications over objection, as his psychotic depression is unlikely to remit without medication, and he has responded well to these medications in the past. -Get records from outpatient psychiatrist, and coordinate care with his outpat ient therapist and registered nurse hh case manager. -Brother, Amie, is his power of city attorney we will enlist his assistance with medical decision making as the patient currently lacks capacity to refuse the recommended treatment. -Encourage patient to be out of bed during the day and participating in groups and therapy. Consider locking his door during group time if he is unable to do this on his own. -He was on an involuntary outpatient commitment, so we will file for a conversion hearing to convert to 304 involuntary treatment. 04/06 -patient has refused sertraline the past 2 days, and although he took queti apine the first night, he refused it last night. He is refusing all groups, has not bathed, and is refusing to eat and less staff bring food to his room. -We will place him in a medically necessary private room due to severity of mood and psychotic symptoms, and request staff to lock his door during group time him to be more engaged in treatment. -Staff contacted the patient's [id number], who clarified that the patient does not actually have a power of city attorney, although this has been documented on admission here. She reported the family is frustrated and concerned with the patient's lack of ability to care for his mental and physical needs. The family has been exploring supportive living, specifically [facility]. -Patient's registered nurse hh case manager, Av Perez, will come in for a meeting tomorrow. 04/07 -improved medication compliance with staff support; continue sertraline 200 mg daily and increase quetiapine to 100 mg at bedtime. -manager sas, Av Perez, is coming to meet with patient today. 04/08 - Continue sertraline 200mg and increase quetiapine to 150mg HS. -On 304 commitment. Continue to encourage him to sign YAYA for [facility] (2) Catatonia: 04/05 -continue Lorazepam 2 mg twice daily and taper over hospital stay. Continue to treat underlying medical conditions as below. 04/06 -decrease Lorazepam to 1 mg twice daily, as he is intermittently refusing doses and it has not been overly helpful. (3) Generalized anxiety disorder: 04/05 -continue SSRI and lorazepam as above, offer hydroxyzine as needed for anxiety. Consider resuming buspirone if indicated. (4) Cellulitis: 04/05 -complete course of Keflex, last dose 04/08/2019. Infection is resolving. (5) DVT (deep venous thrombosis): 04/05 -continue Coumadin 5 mg daily, daily PT/INR, and Lovenox until INR is therapeutic. Coordinate care with Dr. Loyola, who sees him at the anticoagulation clinic. 04/07 -INR is 1.2 today, continue Coumadin and Lovenox. Coordinate with Dr. Loyola (6) Hyperlipidemia: 04/05 -continue home statin. Inventory Assets Strengths: Educated, supportive family Needs: Compliance with treatment, increase community supports Risk Factors Assessment Male: Yes : Yes Do You Have Access To A Gun?: No Health Problems: Yes Mental Health Diagnoses: Yes Substance Use Disorders: No Previous Attempt: Yes Family History of Suicide: No Previous Psychiatric Hospitalization: Yes Hopelessness: Yes Smoker: No Protective Factors Assessment Restorationism Beliefs: No : No Responsible for Young Children: No Employed: No Stable Relationships: Yes Supportive Family: Yes Good Rapport with Provider: No Interval History Identifying Information YINKA ROMERO is a 59-year-old M who currently lives alone in an [place], has a history of depression with psychosis, generalized anxiety disorder, treatment nonadherence and was on an involuntary outpatient commitment, and was admitted on 04/04/19 16:39 on a 302 involuntary commitment for depression with psychosis, treatment nonadherence, and inability to care for himself. Chief Complaint "Lousy". Review of Systems Notes Unable to complete ROS due to patient's refusal to answer Sleep Information Total Hours of Sleep: 6.75 Sleep Comments: pt on q-15 minute checks Meal Information Percent Meal Consumed - Breakfast: 100 Percent Meal Consumed - Lunch: 100 Percent Meal Consumed - Dinner: 100 Nutrition Comment: documented from the patient meal record Subjective Subjective Patient was seen & assessed and interval progress reviewed. He continues to resist taking medications although usually takes them with staff encouragement. He reports mood remains poor, "because I'm going to any moment." He is unable to be reassured that he does not have diabetes, and insists that he does. He continues to express hopelessness and belief that nothing can help him. He denies a pattern of worsening mood in the mornings, stating "my whole life is the worst." Reviewed his treatment plan and recommendations, and he did not respond when asked if he has questions or input. He did not answer when asked if he has questions about his conversion hearing, but said he would not be coming. His registered nurse hh case manager attended his hearing and reported he attended one appointment with Dr. Harrington. He also reported the patient is approved for [facility]. The social organization professor met with him and he refused to sign an YAYA for [facility]. Physical Exam Psychiatric Orientation: alert; + uncooperative Apperance: appropriately dressed Limited grooming and hygiene, malodorous, seated on edge of bed with head in hands Eye Contact: + poor eye contact Motor Behavior: no abnormal motor movements Minimal, mute at times, one or two word answers. Affect: + depressed affect, + constricted affect and mood congruent with affect "Lousy." Thought Process: + perseveration (on delusions) Thought Content: + preoccupation, + delusions, + persecution, + hopelessness, + worthlessness and + self deprecation Suicidal Thoughts: denies suicidal thoughts But believes he is going to at any moment Homicidal Thoughts: denies homicidal thoughts Hallucinations: no auditory hallucinations Cognition: language grossly intact; + attention not intact Insight: + severely impaired insight Judgement: + severely impaired judgement Vital Signs (Past 24 Hours) Last Vital Signs Temp 36.7 C 04/08/19 06:38 Pulse 69 04/08/19 06:39 Resp 18 04/08/19 06:38 BP 128/85 04/08/19 06:39 Results & Data Laboratory Results Laboratory Results - last 24 hr 04/08/19 07:50 PT 12.4 H INR 1.2 H Current Inpatient Medications Current Inpatient Medications: Current Inpatient Medications Acetaminophen (Tylenol) 650 mg PO Q4H PRN PRN Reason: Headache or Minor Fever Stop: 05/04/19 17:30 Al Hydrox/Mg Hydrox/Simethicone (Maalox) 30 ml PO Q4H PRN PRN Reason: GI Upset Stop: 05/04/19 17:30 Cephalexin HCl (Keflex) 500 mg PO QID SETH; Protocol Stop: 04/13/19 20:59 Last Admin: 04/07/19 21:31 Dose: 500 mg Documented by: Enoxaparin Sodium (Lovenox) 150 mg SQ Q24H SETH Stop: 05/05/19 13:59 Last Admin: 04/07/19 13:43 Dose: 150 mg Documented by: Hydroxyzine HCl (Vistaril) 50 mg PO HSZ PRN PRN Reason: Insomnia Stop: 05/04/19 17:30 Hydroxyzine HCl (Vistaril) 25 mg PO Q4H PRN PRN Reason: Anxiety Stop: 05/04/19 17:30 Lorazepam (Ativan) 1 mg PO BID SETH Stop: 05/06/19 20:59 Last Admin: 04/07/19 21:31 Dose: 1 mg Documented by: Magnesium Hydroxide (Milk Of Magnesia) 30 ml PO DAILY PRN PRN Reason: Constipation Stop: 05/04/19 17:30 Quetiapine Fumarate (Seroquel) 100 mg PO HS SETH Stop: 05/07/19 21:59 Last Admin: 04/07/19 21:32 Dose: Not Given Documented by: Sertraline HCl (Zoloft) 200 mg PO QAM SETH Stop: 05/05/19 08:59 Last Admin: 04/07/19 08:14 Dose: 200 mg Documented by: Simvastatin (Zocor) 40 mg PO HS SETH Stop: 05/04/19 21:59 Last Admin: 04/07/19 21:32 Dose: Not Given Documented by: Sodium Chloride ([place] Nasal) 1 - 2 sprays NA PRN PRN PRN Reason: Nasal Dryness/Congestion Stop: 05/04/19 17:30 Trazodone HCl (Desyrel) 100 mg PO HS PRN PRN Reason: Sleep Stop: 05/04/19 17:33 Warfarin Sodium (Coumadin) 5 mg PO DAILY@1600 SETH Stop: 05/05/19 15:59 Last Admin: 04/07/19 16:41 Dose: 5 mg Documented by: Mental Health & Subst Abuse Tx Psychiatrist Name of Psychiatrist: Dr Harrington Time of Appointment with Psychiatrist: Dr Todd Therapist Name of Therapist: Juan Menendez [facility] Avionics Engineer Name of Avionics Engineer: Av Perez Post Discharge Appointments Primary Care Physician Name Of Family Doctor: Catalina Todd [facility] Contact Information Discharge Discharge Address: [address] [place] [address] CPT Code CPT Code 95262 (1) DVT (deep venous thrombosis) DVT location: lower extremity (2) Cellulitis Site of cellulitis: unspecified site Qualified Code(s): L03.90 - Cellulitis, unspecified (3) Depression Active/Remission status: currently active Depression Type: major depressive disorder Major depression episode severity: severe Major depression recurrence: recurrent Psychotic features: with psychotic features Qualified Code(s): F33.3 - Major depressive disorder, recurrent, severe with psychotic symptoms (4) Hyperlipidemia Hyperlipidemia type: unspecified Qualified Code(s): E78.5 - Hyperlipidemia, unspecified
[2019-04-08] MEDS: SERTRALINE HCL 100 MG TABLET PO SCH (09:38)
[2019-04-08] MEDS: LORazepam 1 MG TAB PO SCH ×2 (09:38→21:58)
[2019-04-08] MEDS: cephALEXin 500 MG CAP PO SCH ×4 (09:38→21:58)
[2019-04-08] MEDS: ENOXAPARIN 150 MG/ML SYR SQ SCH (14:26)
--- NOTE | 2019-04-08 14:45 | Ultrasound Report ---
US venous doppler LE RT CLINICAL HISTORY: recent DVT, RLE pain, swelling, and redness PAIN. EDEMA. COMPARISON STUDY: 03/29/2019 FINDINGS: Evidence for new thrombus dimension within the mid femoral vein, popliteal vein, with compr omise visibility of the calf veins. This represents a component of progression compared to the study of 2 03/29/2019 IMPRESSION: 1. Findings consistent with acute deep venous thrombosis now involving components of the femoral vein , as well as popliteal vein. 2. This represents moderate progression compared to the prior study. The above report was generated using voice recognition software. It may contain grammatical, syntax or spelling errors. Electronically signed by: Good Lozada M.D. 04/08/2019 2:43 PM
[2019-04-08] MEDS ORDERED: WARFARIN SOD 10 MG TAB PO ONE (15:41)
[2019-04-08] MEDS: WARFARIN SOD 5 MG TAB PO SCH (17:04)
--- NOTE | 2019-04-08 18:29 | Hospitalist Progress Note ---
Date of Service April 08, 2019 Assessment & Plan (1) DVT (deep venous thrombosis): No worrisome signs or symptoms, already on therapeutic Lovenox, suspect that DVT probably formed asymptomatically between 03/29 ultrasound and today's. Continue therapeutic Lovenox until INR greater than 2. INR has not been improving, likely oral vitamin K intake is better than with prior times he is been on Coumadin. Increase to 15 mg today, 10 mg daily thereafter for a while, follow INR. I will continue to follow Coumadin titration, please do not hesitate to call with any questions or concerns. Shows no signs or symptoms of pulmonary embolism, and certainly since treatment would be the same, unless he were to (unlikely) deteriorate to where he actually had any distress, the treatment would simply be anticoagulation as we are already doing. Subjective asked to see in regards to leg swelling - seems worse today. no real meaningful HPI or ROS obtainable - pt notes when i ask if i can look at his leg "you can, but it's not gonna make a difference hola i'm gonna anyway" -- staff notes that he has had significant down affect. Review of Systems Review of Systems: Unobtainable due to mental health condition Physical Exam Physical Exam: gen - laying on side no distress. heent nc at mmm breathing unlabored no accessory muscles good effort. RLE edema seems similar to last exam i did, no erythema no cords. Results & Data Vital Signs (Past 12 Hours) Vital Signs Temp Pulse Resp BP Pulse Ox 04/08/19 12:19 97.9 F 74 16 127/85 99 04/08/19 06:39 69 128/85 04/08/19 06:38 98.1 F 67 18 109/72 PG Care Time/CCT Total # of Minutes Spent Total Time Spent with Patient: Total time spent is greater than 50% in coordination of care (as documented) at patient's floor/unit and/or counseling patient: (1) DVT (deep venous thrombosis) DVT location: lower extremity
[2019-04-08] MEDS: SIMVASTATIN 40 MG TAB PO SCH (21:58)
[2019-04-08] MEDS ORDERED: QUETIAPINE FUMARATE 100 MG TABLET PO SCH (22:00)
[2019-04-09] MEDS: LORazepam 1 MG TAB PO SCH ×2 (07:44→20:41)
[2019-04-09] MEDS: SERTRALINE HCL 100 MG TABLET PO SCH (08:50)
[2019-04-09 09:03] LABS: INR 1.3 (0.9-1.1); Prothrombin Time 13.3 Seconds (9.0-12.0)
--- NOTE | 2019-04-09 11:04 | Communication Note ---
Date of Service: April 09, 2019 INR noted 1.3. vitals noted. continue lovenox 1.5mg/kg q24hrs, had 15mg coumadin yesterday, will continue at 10mg daily. follow INR daily for now. will continue to follow labwork and clinically follow peripherally but certainly face to face if any need were to arise (don't hesitate to call)
[2019-04-09] MEDS: ENOXAPARIN 150 MG/ML SYR SQ SCH (13:56)
--- NOTE | 2019-04-09 14:56 | Psychiatric Progress Note ---
Date of Service April 09, 2019 Impression / Recommendations Surya Howard is a 59-year-old single male with a history of severe psychotic depression and generalized anxiety, as well as long-standing treatment nonadherence which has resulted in involuntary outpatient commitment, who was just discharged from our unit 2 weeks prior to being hospitalized medically for DVT and lower extremity cellulitis in the context of medication nonadherence at home. He decompensated rapidly after discharge from the behavioral health unit, and was seen in the ER 3 times before he was ultimately hospitalized. He admits he was noncompliant with medications at home, which likely led to his DVT and cellulitis, as well as his psychiatric decompensation. Although he has had a good response to sertraline and quetiapine in the past, he is refusing these medications here for unclear reasons, other than his belief that his life is over and he is going to at any moment. He is also intermittently refusing oral antibiotics, Coumadin, and daily blood draws to follow his INR. His INR remains subtherapeutic which places him at ongoing risk for DVT/PE, so we have continued Lovenox daily. He continues to express delusions of persecution, hopelessness, and is unable to rationally manipulate information or appreciate the consequences of his actions. He is on a 304 as of today. Inpatient treatment is medically necessary due to the risk of , disability, or serious injury if discharged, which is as a direct result of his mental illness, which impairs his judgment. It appears likely that he will need a supervised living situation at discharge, as he is not able to care for himself living independently in the community, and is being considered for [facility], but is refusing to sign an YAYA. Pt struggling with medication complaince, fixxtated on how many pills he has to take (1) Depression: 04/05 -continue sertraline 200 mg daily and quetiapine 50 mg at bedtime, which he is intermittently refusing. If he does not become more compliant with oral medications, we will pursue medications over objection, as his psychotic depression is unlikely to remit without medication, and he has responded well to these medications in the past. -Get records from outpatient psychiatrist, and coordinate care with his outpatient therapist and correctional counselor/case manager. -Brother, Amie, is his power of district attorney we will enlist his assistance with medical decision making as the patient currently lacks capacity to refuse the recommended treatment. -Encourage patient to be out of bed during the day and participating in groups and therapy. Consider locking his door during group time if he is unable to do this on his own. -He was on an involuntary outpatient commitment, so we will file for a conversion hearing to convert to 304 involuntary treatment. 04/06 -patient has refused sertraline the past 2 days, and although he took quetiapine the first night, he refused it last night. He is refusing all groups, has not bathed, and is refusing to eat and less staff bring food to his room. -We will place him in a medically necessary private room due to severity of mood and psychotic symptoms, and request staff to lock his door during group time him to be more engaged in treatment. -Staff contacted the patient's [id number], who clarified that the patient does not actually have a power of district attorney, although this has been documented on admission here. She reported the family is frustrated and concerned with the patient's lack of ability to care for his mental and physical needs. The family has been exploring supportive living, specifically [facility]. -Patient's correctional counselor/case manager, Av Perez, will come in for a meeting tomorrow. 04/07 -improved medication compliance with staff support; continue sertraline 200 mg daily and increase quetiapine to 100 mg at bedtime. -senior facilities manager, Av Perez, is coming to meet with patient today. 04/08 - Continue sertraline 200mg and increase quetiapine to 150mg HS. -On 304 commitment. Continue to encourage him to sign YAYA for [facility] 04/09 -pt refused quetiapine last night, having dose tonight be 1/2 of 300mg pill of quetiapine to help lower pill burden and might hold his lipid med tonight as well to help improve likelihood of pt taking his atypical antipsychotic dose that seems to be medication most needed at this time. goal is to titrate up quetiapine. Pharmacy has 50,100,200, and 300mg size pills, (in Xr form there are 150mg size, if switching to xr in future would advise dosing around 8pm. addressed pt delusional thinking and attempted reality testing. (2) Catatonia: 04/05 -continue Lorazepam 2 mg twice daily and taper over hospital stay. Continue to treat underlying medical conditions as below. 04/06 -decrease Lorazepam to 1 mg twice daily, as he is intermittently refusing doses and it has not been overly helpful. (3) Generalized anxiety disorder: 04/05 -continue SSRI and lorazepam as above, offer hydroxyzine as needed for anxiety. Consider resuming buspirone if indicated. (4) Cellulitis: 04/05 -complete course of Keflex, last dose 04/08/2019. Infection is resolving. (5) DVT (deep venous thrombosis): 04/05 -continue Coumadin 5 mg daily, daily PT/INR, and Lovenox until INR is therapeutic. Coordinate care with Dr. Loyola, who sees him at the anticoagulation clinic. 04/07 -INR is 1.2 today, continue Coumadin and Lovenox. Coordinate with Dr. Loyola (6) Hyperlipidemia: 04/05 -continue home statin. Inventory Assets Strengths: Educated, supportive family Needs: Compliance with treatment, increase community supports Risk Factors Assessment Male: Yes : Yes Do You Have Access To A Gun?: No Health Problems: Yes Mental Health Diagnoses: Yes Substance Use Disorders: No Previous Attempt: Yes Family History of Suicide: No Previous Psychiatric Hospitalization: Yes Hopelessness: Yes Smoker: No Protective Factors Assessment [employer] Beliefs: No : No Responsible for Young Children: No Employed: No Stable Relationships: Yes Supportive Family: Yes Good Rapport with Provider: No Interval History Identifying Information SAUD ROMERO is a 59-year-old M who currently lives alone in an [place], has a history of depression with psychosis, generalized anxiety disorder, treatment nonadherence and was on an involuntary outpatient commitment, and was admitted on 04/04/19 16:39 on a 302 involuntary commitment for depression with psychosis, treatment nonadherence, and inability to care for himself. Chief Complaint "The end (of my life) is near, The Diabetes is about to cause me to perhaps even today". Review of Systems Sleep Information Total Hours of Sleep: 3.25 Sleep Comments: pt. toileted at 0100 and 0300. saud has been awake since 0245-he declined meds and any other items. Meal Information Percent Meal Consumed - Breakfast: 90 Percent Meal Consumed - Lunch: 100 Percent Meal Consumed - Dinner: 100 Nutrition Comment: documented from the patient meal record Subjective Subjective Patient was seen & assessed and interval progress reviewed with nursing and social work. Pt contineus to have paranodi delusion that he is dying and that will at any moment. He shared that his vision is going and blurry and that he is cold and that has discomfort in the back of his neck and bakc of his head and these are aspects of the DM leading to hs . THat he must have terminal DM due ot his wt gain that has occured following his leg concerns. He is parnaoid about the hospital and does not view treatment as potentially helpful. He is bothered by having to take so many pills. He would like the pill number to be decreased. he refused his bedtime meds last night including seroquel and 2 of his atnbtoice doses from yesterday were not taken. he did take zolfot this morning with signicant supprot from nursing. Pt has trazoodne on prn basis but not taking it nor asking for it and seems ot be afraid to sleep given might not wake up since expecting to . Pt might be having AH, he did not give a clear answer to this question. Pt is depressed and with excessive guilt. was siting in chair in dayroom with melissa tcuked in, seeming waiting to , all morning prior to assesment and jsut prior staff was sitting valentin him trying to engage with him Physical Exam Psychiatric Orientation: alert and cooperative Apperance: appropriately dressed, + disheveled and appeared stated age; + inappropriately groomed Eye Contact: + poor eye contact Motor Behavior: no abnormal motor movements Affect: + depressed affect, + anxious affect, + constricted affect and mood congruent with affect Mood: + depressed mood and + anxious mood Thought Process: goal directed thought process and + perseveration (on delusions) Thought Content: + preoccupation, + paranoid, + cognitive distortions, + delusions, + persecution, + hopelessness, + worthlessness, + guilt and + self deprecation Suicidal Thoughts: denies suicidal thoughts Homicidal Thoughts: denies homicidal thoughts Hallucinations: + auditory hallucinations (?) Cognition: language grossly intact; + recent memory not intact, + remote memory not intact and + attention not intact Insight: + severely impaired insight Judgement: + severely impaired judgement Vital Signs (Past 24 Hours) Last Vital Signs Temp 36.6 C 04/09/19 06:00 Pulse 73 09/21/19 06:00 Resp 18 04/09/19 06:00 BP 134/85 04/09/19 06:00 Pulse Ox 99 04/09/19 06:00 Results & Data Laboratory Results Laboratory Results - last 24 hr 04/09/19 08:15 PT 13.3 H INR 1.3 H Current Inpatient Medications Current Inpatient Medications: Current Inpatient Medications Acetaminophen (Tylenol) 650 mg PO Q4H PRN PRN Reason: Headache or Minor Fever Stop: 05/04/19 17:30 Al Hydrox/Mg Hydrox/Simethicone (Maalox) 30 ml PO Q4H PRN PRN Reason: GI Upset Stop: 05/04/19 17:30 Enoxaparin Sodium (Lovenox) 150 mg SQ Q24H SETH Stop: 05/05/19 13:59 Last Admin: 04/09/19 13:56 Dose: 150 mg Documented by: Hydroxyzine HCl (Vistaril) 50 mg PO HSZ PRN PRN Reason: Insomnia Stop: 05/04/19 17:30 Hydroxyzine HCl (Vistaril) 25 mg PO Q4H PRN PRN Reason: Anxiety Stop: 05/04/19 17:30 Lorazepam (Ativan) 1 mg PO BID SETH Stop: 05/06/19 20:59 Last Admin: 04/09/19 07:44 Dose: 1 mg Documented by: Magnesium Hydroxide (Milk Of Magnesia) 30 ml PO DAILY PRN PRN Reason: Constipation Stop: 05/04/19 17:30 Quetiapine Fumarate (Seroquel) 150 mg PO HS SETH Stop: 05/08/19 21:59 Sertraline HCl (Zoloft) 200 mg PO QAM SETH Stop: 05/05/19 08:59 Last Admin: 04/09/19 08:50 Dose: 200 mg Documented by: Simvastatin (Zocor) 40 mg PO HS SETH Stop: 05/04/19 21:59 Last Admin: 04/08/19 21:58 Dose: Not Given Documented by: Sodium Chloride (Divide Nasal) 1 - 2 sprays NA PRN PRN PRN Reason: Nasal Dryness/Congestion Stop: 05/04/19 17:30 Trazodone HCl (Desyrel) 100 mg PO HS PRN PRN Reason: Sleep Stop: 05/04/19 17:33 Warfarin Sodium (Coumadin) 5 mg PO DAILY@1600 SETH Stop: 05/05/19 15:59 Last Admin: 04/08/19 17:04 Dose: 5 mg Documented by: Mental Health & Subst Abuse Tx Psychiatrist Name of Psychiatrist: Dr Harrington Time of Appointment with Psychiatrist: Dr Todd Therapist Name of Therapist: Juan Menendez ACSW Asp Developer Name of Asp Developer: Av Perez Post Discharge Appointments Primary Care Physician Name Of Family Doctor: Catalina Todd [facility] Contact Information Discharge Discharge Address: [address] [place] [address] CPT Code CPT Code 34998 (1) Depression Depression Type: major depressive disorder Major depression recurrence: recurrent Active/Remission status: currently active Major depression episode severity: severe Psychotic features: with psychotic features Qualified Code(s): F33.3 - Major depressive disorder, recurrent, severe with psychotic symptoms (2) Cellulitis Site of cellulitis: unspecified site Qualified Code(s): L03.90 - Cellulitis, unspecified (3) DVT (deep venous thrombosis) DVT location: lower extremity (4) Hyperlipidemia Hyperlipidemia type: unspecified Qualified Code(s): E78.5 - Hyperlipidemia, unspecified
[2019-04-09] MEDS: WARFARIN SOD 5 MG TAB PO SCH (16:00)
[2019-04-09] MEDS: QUETIAPINE FUMARATE 300 MG TABLET PO SCH (20:41)
[2019-04-09] MEDS: SIMVASTATIN 40 MG TAB PO SCH (20:41)
[2019-04-10] MEDS: SERTRALINE HCL 100 MG TABLET PO SCH (08:11)
[2019-04-10] MEDS: LORazepam 1 MG TAB PO SCH ×2 (08:11→21:12)
[2019-04-10 08:12] LABS: Hematocrit (blood only) 42.4 % (42-52); Platelet Count 249 K/uL (130-400); RDW Coefficient of Variation 14.4 % (11.5-14.5); RDW Standard Deviation 46.4 fL (36.4-46.3); Red Blood Count 4.82 M/uL (4.7-6.1); White Blood Count 6.17 K/uL (4.8-10.8)
[2019-04-10 08:20] LABS: INR 1.6 (0.9-1.1); Prothrombin Time 15.7 Seconds (9.0-12.0)
[2019-04-10 08:46] LABS: Creatinine Clr Calc Pharmacy 96.8 ml/min; Est GFR (African American) 98.5
--- NOTE | 2019-04-10 09:16 | Communication Note ---
Date of Service: April 10, 2019 vitals appearing stable, INR now 1.6. will continue 10mg coumadin, continue lovenox 1.5mg/kg, will continue to follow.
[2019-04-10] MEDS: ENOXAPARIN 150 MG/ML SYR SQ SCH (14:10)
--- NOTE | 2019-04-10 15:08 | Psychiatric Progress Note ---
Date of Service April 10, 2019 Impression / Recommendations Surya Howard is a 59-year-old single male with a history of severe psychotic depression and generalized anxiety, as well as long-standing treatment nonadherence which has resulted in involuntary outpatient commitment, who was just discharged from our unit 2 weeks prior to being hospitalized medically for DVT and lower extremity cellulitis in the context of medication nonadherence at home. He decompensated rapidly after discharge from the behavioral health unit, and was seen in the ER 3 times before he was ultimately hospitalized. He admits he was noncompliant with medications at home, which likely led to his DVT and cellulitis, as well as his psychiatric decompensation. Although he has had a good response to sertraline and quetiapine in the past, he is refusing these medications here for unclear reasons, other than his belief that his life is over and he is going to at any moment. He is also intermittently refusing oral antibiotics, Coumadin, and daily blood draws to follow his INR. His INR remains subtherapeutic which places him at ongoing risk for DVT/PE, so we have continued Lovenox daily. He continues to express delusions of persecution, hopelessness, and is unable to rationally manipulate information or appreciate the consequences of his actions. He is on a 304 as of today. Inpatient treatment is medically necessary due to the risk of , disability, or serious injury if discharged, which is as a direct result of his mental illness, which impairs his judgment. It appears likely that he will need a supervised living situation at discharge, as he is not able to care for himself living independently in the community, and is being considered for [facility], but is refusing to sign an YAYA. Pt struggling with medication complaince, fixxtated on how many pills he has to take . pt appearing to be improving some on 04/10 (1) Depression: 04/05 -continue sertraline 200 mg daily and quetiapine 50 mg at bedtime, which he is intermittently refusing. If he does not become more compliant with oral medications, we will pursue medications over objection, as his psychotic depression is unlikely to remit without medication, and he has responded well to these medications in the past. -Get records from outpatient psychiatrist, and coordinate care with his outpatient therapist and caser up. -Brother, Amie, is his power of trademark attorney we will enlist his assistance with medical decision making as the patient currently lacks capacity to refuse the recommended treatment. -Encourage patient to be out of bed during the day and participating in groups and therapy. Consider locking his door during group time if he is unable to do this on his own. -He was on an involuntary outpatient commitment, so we will file for a conversion hearing to convert to 304 involuntary treatment. 04/06 -patient has refused sertraline the past 2 days, and although he took quetiapine the first night, he refused it last night. He is refusing all g roups, has not bathed, and is refusing to eat and less staff bring food to his room. -We will place him in a medically necessary private room due to severity of mood and psychotic symptoms, and request staff to lock his door during group time him to be more engaged in treatment. -Staff contacted the patient's [id number], who clarified that the patient does not actually have a power of trademark attorney, although this has been documented on admission here. She reported the family is frustrated and concerned with the patient's lack of ability to care for his mental and physical needs. The family has been exploring supportive living, specifically [facility] [place] [facility]. -Patient's caser up, Av Perez, will come in for a meeting tomorrow. 04/07 -improved medication compliance with staff support; continue sertraline 200 mg daily and increase quetiapine to 100 mg at bedtime. -financial sales manager, Av Perez, is coming to meet with patient today. 04/08 - Continue sertraline 200mg and increase quetiapine to 150mg HS. -On 304 commitment. Continue to encourage him to sign YAYA for [facility] 04/09 -pt refused quetiapine last night, having dose tonight be 1/2 of 300mg pill of quetiapine to help lower pill burden and might hold his lipid med tonight as well to help improve likelihood of pt taking his atypical antipsychotic dose that seems to be medication most needed at this time. goal is to titrate up quetiapine. Pharmacy has 50,100,200, and 300mg size pills, (in Xr form there are 150mg size, if switching to xr in future would advise dosing around 8pm. addressed pt delusional thinking and attempted reality testing. 04/10 took seroquel 150mg dose on 04/09 and noticing some improvement today pt might be imrpoving some and might be more open to treatment ceased MNPR at this time (2) Catatonia: 04/05 -continue Lorazepam 2 mg twice daily and taper over hospital stay. Continue to treat underlying medical conditions as below. 04/06 -decrease Lorazepam to 1 mg twice daily, as he is intermittently refusing doses and it has not been overly helpful. (3) Generalized anxiety disorder: 04/05 -continue SSRI and lorazepam as above, offer hydroxyzine as needed for anxiety. Consider resuming buspirone if indicated. (4) Cellulitis: 04/05 -complete course of Keflex, last dose 04/08/2019. Infection is resolving. (5) DVT (deep venous thrombosis): 04/05 -continue Coumadin 5 mg daily, daily PT/INR, and Lovenox until INR is therapeutic. Coordinate care with Dr. Loyola, who sees him at the anticoagulation clinic. 04/07 -INR is 1.2 today, continue Coumadin and Lovenox. Coordinate with Dr. Holly roberts (6) Hyperlipidemia: 04/05 -continue home statin. 04/09 and 04/10 aiming for pt to take med but comfortable with pt refusing this med at current time if helps him obtain his other medications, aim is for improved meed compliance occur as psychiatrically improves, lexy since currently pt pill load a factor in pt compliance Inventory Assets Strengths: Educated, supportive family Needs: Compliance with treatment, increase community supports Risk Factors Assessment Male: Yes : Yes Do You Have Access To A Gun?: No Health Problems: Yes Mental Health Diagnoses: Yes Substance Use Disorders: No Previous Attempt: Yes Family History of Suicide: No Previous Psychiatric Hospitalization: Yes Hopelessness: Yes Smoker: No Protective Factors Assessment Oriental Orthodox Beliefs: No : No Responsible for Young Children: No Employed: No Stable Relationships: Yes Supportive Family: Yes Good Rapport with Provider: No Interval History Identifying Information SAUD ROMERO is a 59-year-old M who currently lives alone in an [place], has a history of depression with psychosis, generalized anxiety disorder, treatment nonadherence and was on an involuntary outpatient commitment, and was admitted on 04/04/19 16:39 on a 302 involuntary commitment for depression with psychosis, treatment nonadherence, and inability to care for himself. Chief Complaint "Better but tired". Review of Systems Sleep Information Total Hours of Sleep: 6.75 Sleep Comments: pt. toileted at 0100 and 0300. saud has been awake since 0245-he declined meds and any other items. Meal Information Percent Meal Consumed - Breakfast: 100 Percent Meal Consumed - Lunch: 100 Percent Meal Consumed - Dinner: 100 Nutrition Comment: documented from the patient meal record Subjective Subjective Patient was seen & assessed and interval progress reviewed with nursing and social work. PT did take his Seroquel 150mg dose last night (but did not take his statin), pt appeared to have disturbed sleep in middle of night and reused prn to help with sleep, and did seem to sleep some mid morning. Pt indicated to marine underwriter in today's assessment that he is feeling better physically and more open to possibility that not dying. pt more able to engage on subjects beyond his delusional concerns and more able to view his physical experiences as perhaps not tied to signs of pending with also finding they have improved a bit. He is feeling up to having a roommate . He denied SI or HI. He is eating his meals. He wonders if Seroquel made him tired this morning which is possible but his limited sleep prior is also a factor. Physical Exam Psychiatric Orientation: alert and oriented x 3 Eye Contact: + fair eye contact Motor Behavior: steady gait and station and no abnormal motor movements Speech: normal rate/rhythm/volume of speech Affect: + depressed affect "better" Thought Process: goal directed thought process and + perseveration Thought Content: + delusions (but seeming to lessen some and perhaps be able to take in reality testing) Suicidal Thoughts: denies suicidal thoughts Homicidal Thoughts: denies homicidal thoughts Hallucinations: no auditory hallucinations Cognition: recent memory grossly intact Estimated Intelligence: consistent with education level Insight: + impaired insight Judgement: + impaired judgement Vital Signs (Past 24 Hours) Last Vital Signs Temp 36.6 C 04/10/19 06:45 Pulse 66 04/10/19 06:45 Resp 16 04/10/19 06:45 BP 120/73 04/10/19 06:45 Pulse Ox 99 04/09/19 06:00 Results & Data Laboratory Results Laboratory Results - last 24 hr 04/10/19 04/10/19 04/10/19 07:55 07:55 07:55 WBC 6.17 RBC 4.82 Hgb 14.0 Hct 42.4 MCV 88.0 MCH 29.0 MCHC 33.0 RDW Std Deviation 46.4 H RDW Coeff of Christin 14.4 Plt Count 249 MPV 9.0 PT 15.7 H INR 1.6 H Creatinine 0.96 Est Cr Clr Drug Dosing 96.8 Est GFR ( Amer) 98.5 Est GFR (Non-Af Amer) 85.0 Current Inpatient Medications Current Inpatient Medications: Current Inpatient Medications Acetaminophen (Tylenol) 650 mg PO Q4H PRN PRN Reason: Headache or Minor Fever Stop: 05/04/19 17:30 Al Hydrox/Mg Hydrox/Simethicone (Maalox) 30 ml PO Q4H PRN PRN Reason: GI Upset Stop: 05/04/19 17:30 Enoxaparin Sodium (Lovenox) 150 mg SQ Q24H SETH Stop: 05/05/19 13:59 Last Admin: 04/10/19 14:10 Dose: 150 mg Documented by: Hydroxyzine HCl (Vistaril) 50 mg PO HSZ PRN PRN Reason: Insomnia Stop: 05/04/19 17:30 Hydroxyzine HCl (Vistaril) 25 mg PO Q4H PRN PRN Reason: Anxiety Stop: 05/04/19 17:30 Lorazepam (Ativan) 1 mg PO BID [facility] Stop: 05/06/19 20:59 Last Admin: 04/10/19 08:11 Dose: 1 mg Documented by: Magnesium Hydroxide (Milk Of Magnesia) 30 ml PO DAILY PRN PRN Reason: Constipation Stop: 05/04/19 17:30 Quetiapine Fumarate (Seroquel) 150 mg PO HS [facility] Stop: 05/08/19 21:59 Last Admin: 04/09/19 20:41 Dose: 150 mg Documented by: Sertraline HCl (Zoloft) 200 mg PO QAM [facility] Stop: 05/05/19 08:59 Last Admin: 04/10/19 08:11 Dose: 200 mg Documented by: Simvastatin (Zocor) 40 mg PO HS [facility] Stop: 05/04/19 21:59 Last Admin: 04/09/19 20:41 Dose: Not Given Documented by: Sodium Chloride ([place] Nasal) 1 - 2 sprays NA PRN PRN PRN Reason: Nasal Dryness/Congestion Stop: 05/04/19 17:30 Trazodone HCl (Desyrel) 100 mg PO HS PRN PRN Reason: Sleep Stop: 05/04/19 17:33 Warfarin Sodium (Coumadin) 5 mg PO DAILY@1600 SETH Stop: 05/05/19 15:59 Last Admin: 04/09/19 16:00 Dose: 5 mg Documented by: Mental Health & Subst Abuse Tx Psychiatrist Name of Psychiatrist: Dr Harrington Time of Appointment with Psychiatrist: Dr Todd Therapist Name of Therapist: Juan Menendez ACS Data Storage Specialist Name of Data Storage Specialist: Av Perez Post Discharge Appointments Primary Care Physician Name Of Family Doctor: Catalina Todd Primary [facility] Contact Information Discharge Discharge Address: [address] [place] [address] CPT Code CPT Code 57127 (1) Depression Depression Type: major depressive disorder Major depression recurrence: recurrent Active/Remission status: currently active Major depression episode severity: severe Psychotic features: with psychotic features Qualified Code(s): F33.3 - Major depressive disorder, recurrent, severe with psychotic symptoms (2) Cellulitis Site of cellulitis: unspecified site Qualified Code(s): L03.90 - Cellulitis, unspecified (3) DVT (deep venous thrombosis) DVT location: lower extremity (4) Hyperlipidemia Hyperlipidemia type: unspecified Qualified Code(s): E78.5 - Hyperlipidemia, unspecified
[2019-04-10] MEDS: WARFARIN SOD 5 MG TAB PO SCH (15:36)
[2019-04-10] MEDS: QUETIAPINE FUMARATE 300 MG TABLET PO SCH (21:10)
[2019-04-10] MEDS: SIMVASTATIN 40 MG TAB PO SCH (21:12)
[2019-04-11 08:15] LABS: INR 1.5 (0.9-1.1); Prothrombin Time 15.4 Seconds (9.0-12.0)
[2019-04-11] MEDS: SERTRALINE HCL 100 MG TABLET PO SCH ×2 (09:02→10:30)
[2019-04-11] MEDS: LORazepam 1 MG TAB PO SCH ×2 (09:02→21:21)
--- NOTE | 2019-04-11 09:56 | Consultation ---
Date of Consultation April 11, 2019 History of Present Illness Attending Physician: Ginger Vann MD Allergies Allergy/AdvReac Type Severity Reaction Status Date / Time rivaroxaban Allergy Severe tongue Verified 03/09/19 12:20 swelled, hands swelled, redness, itching Home Medications Home Medications Medication Instructions Recorded Confirmed Type simvastatin 40 mg tablet 40 mg PO HS #30 tab 02/15/19 04/04/19 Rx minocycline 100 mg capsule 100 mg PO DAILY #30 cap 03/09/19 03/29/19 Rx sertraline 200 mg PO QAM #60 tab 03/09/19 04/04/19 Rx bupropion HCl [Wellbutrin SR] 100 mg PO DAILY 03/29/19 04/04/19 History buspirone 10 mg PO TID 03/29/19 04/04/19 History trazodone 100 mg PO HS PRN 03/29/19 04/04/19 History warfarin 5 - 10 mg PO UD 03/29/19 04/04/19 History Patient History Medical History Impaired fasting glucose (Acute) Hyperlipidemia (Acute) Factor V Leiden mutation (Acute) DVT (deep venous thrombosis) (Acute) Depression (Chronic) Bilateral pulmonary embolism Right heart failure due to pulmonary hypertension Left shoulder pain (Resolved) Surgical History No pertinent past surgical history Social History Preferred Language: Irish Communication Ability: Effective Visual Impairment: No Limitations Hearing Ability: Normal 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
--- NOTE | 2019-04-11 09:59 | Consultation ---
Date of Consultation April 11, 2019 Assessment & Plan (1) DVT of lower limb, acute: Asked to provide input on the management of warfarin therapy for this 59 year old man, well known to the [facility] clinic, with acute, provoked DVT this hospitalization. Patient's typical outpatient warfarin needs are 65 mg/week. He has required less during past hospitalizations to ensure he is in the therapeutic range and the INR does not become elevated. He is currently anticoagulated on 150 mg Enoxaparin daily (1.5 mg/kg) and will need to stay on this until his INR is therapeutic for two days (two days of overlap). He is currently getting 5 mg of warfarin daily with a singular load of 15 mg on 04/08. His INR is 1.5. I would recommend and have ordered him to receive 15 mg of warfarin today and then resume a weekly dose of 55 mg/week (5 mg MWF and 10 mg all other days). This will need to be adjusted with extra doses according to his INR values during the period that he is becoming therapeutic. Will follow with you. Present on Admission?: No History of Present Illness Attending Physician: Ginger Vann MD Allergies Allergy/AdvReac Type Severity Reaction Status Date / Time rivaroxaban Allergy Severe tongue Verified 03/09/19 12:20 swelled, hands swelled, redness, itching Home Medications Home Medications Medication Instructions Recorded Confirmed Type simvastatin 40 mg tablet 40 mg PO HS #30 tab 02/15/19 04/04/19 Rx minocycline 100 mg capsule 100 mg PO DAILY #30 cap 03/09/19 03/29/19 Rx sertraline 200 mg PO QAM #60 tab 03/09/19 04/04/19 Rx bupropion HCl [Wellbutrin SR] 100 mg PO DAILY 03/29/19 04/04/19 History buspirone 10 mg PO TID 03/29/19 04/04/19 History trazodone 100 mg PO HS PRN 03/29/19 04/04/19 History warfarin 5 - 10 mg PO UD 03/29/19 04/04/19 History Patient History Medical History Impaired fasting glucose (Acute) Hyperlipidemia (Acute) Factor V Leiden mutation (Acute) DVT (deep venous thrombosis) (Acute) Depression (Chronic) Bilateral pulmonary embolism Right heart failure due to pulmonary hypertension Left shoulder pain (Resolved) Surgical History No pertinent past surgical history Social History Preferred Language: Russian Communication Ability: Effective Visual Impairment: No Limitations Hearing Ability: Normal 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
--- NOTE | 2019-04-11 11:12 | Psychiatric Progress Note ---
Date of Service April 11, 2019 Impression / Recommendations Surya Howard is a 59-year-old single male with a history of severe psychotic depression and generalized anxiety, as well as long-standing treatment nonadherence which has resulted in involuntary outpatient commitment, who was just discharged from our unit 2 weeks prior to being hospitalized medically for DVT and lower extremity cellulitis in the context of medication nonadherence at home. He decompensated rapidly after discharge from the behavioral health unit, and was seen in the ER 3 times before he was ultimately hospitalized. He admits he was noncompliant with medications at home, which likely led to his DVT and cellulitis, as well as his psychiatric decompensation. Although he has had a good response to sertraline and quetiapine in the past, he had been refusing these medications here for unclear reasons. Compliance has improved, but he at times requires intervention and reassurance from staff to take medications. Hospitalist consult over weekend regarding progression of DVT and anticoagulation management, appreciate recommendations. Dr. Loyola on board regarding subtherapeutic INR, which places him at ongoing risk for DVT/PE, appreciate recommendations below. He continues to express delusions of persecution, hopelessness, and is unable to rationally manipulate information or appreciate the consequences of his actions. Pt was converted to an inpatient 304 as of hearing on 04/08/19. Inpatient treatment is medically necessary due to the risk of , disability, or serious injury if discharged, which is as a direct result of his mental illness, which impairs his judgment. It appears likely that he will need a supervised living situation at discharge, as he is not able to care for himself living independently in the community, and is being considered for [facility], for which he has now signed an YAYA. (1) Depression: 04/05 -continue sertraline 200 mg daily and quetiapine 50 mg at bedtime, which he is intermittently refusing. If he does not become more compliant with oral medications, we will pursue medications over objection, as his psychotic depression is unlikely to remit without medication, and he has responded well to these medications in the past. -Get records from outpatient psychiatrist, and coordinate care with his outpatient therapist and window caser. -Brother, Amie, is his power of criminal attorney we will enlist his assistance with medical decision making as the patient currently lacks capacity to refuse the recommended treatment. -Encourage patient to be out of bed during the day and participating in groups and therapy. Consider locking his door during group time if he is unable to do this on his own. -He was on an involuntary outpatient commitment, so we will file for a conversion hearing to convert to 304 involuntary treatment. 04/06 -patient has refused sertraline the past 2 days, and although he took quetiapine the first night, he refused it last night. He is refusing all groups, has not bathed, and is refusing to eat and less staff bring food to his room. -We will place him in a medically necessary private room due to severity of mood and psychotic symptoms, and request staff to lock his door during group time him to be more engaged in treatment. -Staff contacted the patient's [id number], who clarified that the patient does not actually have a power of criminal attorney, although this has been documented on admission here. She reported the family is frustrated and concerned with the patient's lack of ability to care for his mental and physical needs. The family has been exploring supportive living, specifically [facility]. -Patient's window caser, Av Perez, will come in for a meeting tomorrow. 04/07 -improved medication compliance with staff support; continue sertraline 200 mg daily and increase quetiapine to 100 mg at bedtime. -integrated marketing manager, Av Perez, is coming to meet with patient today. 04/08 - Continue sertraline 200mg and increase quetiapine to 150mg HS. -On 304 commitment. Continue to encourage him to sign YAYA for [facility] 04/09 -pt refused quetiapine last night, having dose tonight be 1/2 of 300mg pill of quetiapine to help lower pill burden and might hold his lipid med tonight as well to help improve likelihood of pt taking his atypical antipsychotic dose that seems to be medication most needed at this time. goal is to titrate up quetiapine. Pharmacy has 50,100,200, and 300mg size pills, (in Xr form there are 150mg size, if switching to xr in future would advise dosing around 8pm. addressed pt delusional thinking and attempted reality testing. 04/10 took seroquel 150mg dose on 04/09 and noticing some improvement today pt might be improving some and might be more open to treatment ceased MNPR at this time 04/11 - Continue sertraline 200mg daily - will titration quetiapine to 200mg daily, can give previous dose of 150mg (1/2 of 300mg tablet) if refuses - Having a rather difficult day today, limited engagement in programming, continues to believe he is dying (2) Catatonia: 04/05 -continue Lorazepam 2 mg twice daily and taper over hospital stay. Continue to treat underlying medical conditions as below. 04/06 -decrease Lorazepam to 1 mg twice daily, as he is intermittently refusing doses and it has not been overly helpful. (3) Generalized anxiety disorder: 04/05 -continue SSRI and lorazepam as above, offer hydroxyzine as needed for anxiety. Consider resuming buspirone if indicated. (4) Cellulitis: 04/05 -complete course of Keflex, last dose 04/08/2019. Infection is resolving. (5) DVT (deep venous thrombosis): 04/05 -continue Coumadin 5 mg daily, daily PT/INR, and Lovenox until INR is therapeutic. Coordinate care with Dr. Loyola, who sees him at the anticoagulation clinic. 04/07 -INR is 1.2 today, continue Coumadin and Lovenox. Coordinate with Dr. Loyola 04/11 - Reviewed consultation recommendations - discussed recs with Dr. Loyola via phone - Orders provided for patient to receive 15mg of warfarin today, then a schedule of 10mg daily SuTuThSa, and 5mg daily MWF - Recommended that enoxaparin continue until his INR is therapeutic for two days (two day overlap) - Dr. Loyola to continue to follow (6) Hyperlipidemia: 04/05 -continue home statin. 04/09 and 04/10 aiming for pt to take med but comfortable with pt refusing this med at current time if helps him obtain his other medications, aim is for improved meed compliance occur as psychiatrically improves, lexy since currently pt pill load a factor in pt compliance Inventory Assets Strengths: Educated, supportive family Needs: Compliance with treatment, increase community supports Risk Factors Assessment Male: Yes : Yes Do You Have Access To A Gun?: No Health Problems: Yes Mental Health Diagnoses: Yes Substance Use Disorders: No Previous Attempt: Yes Family History of Suicide: No Previous Psychiatric Hospitalization: Yes Hopelessness: Yes Smoker: No Protective Factors Assessment Buddhist Beliefs: No : No Responsible for Young Children: No Employed: No Stable Relationships: Yes Supportive Family: Yes Good Rapport with Provider: No Interval History Identifying Information YINKA ROMERO is a 59-year-old M who currently lives alone in an [place], has a history of depression with psychosis, generalized anxiety disorder, treatment nonadherence and was on an involuntary outpatient commitment, and was admitted on 04/04/19 16:39 on a 302 involuntary commitment for depression with psychosis, treatment nonadherence, and inability to care for himself. Chief Complaint "Oh gees......everyone wants to talk, I don't see the point. You're just all trying to make your money. I don't know why." Review of Systems Notes Constitutional: reports headache, but declining medication offers Cardiovascular: denied Respiratory: denied Gastrointestinal: denied Neurological: denied Psychiatric: denies symptoms other than stated above Total of at least 10 systems reviewed, pertinent positives as above and in HPI. Sleep Information Total Hours of Sleep: 7.5 Sleep Comments: pt on q-15 minute checks Meal Information Percent Meal Consumed - Breakfast: 100 Percent Meal Consumed - Lunch: 100 Percent Meal Consumed - Dinner: 100 Nutrition Comment: documented from the patient meal record Subjective Subjective Patient was seen & assessed and interval progress reviewed with treatment team. Staff reports the patient had demonstrated some improvement in condition over the weekend. He was reported out of his room more frequently and enjoyed watching TV. He has reportedly signed an YAYA for [facility] for anticipated discharge planning. Pt was reportedly less focused on his delusion of impending over the weekend. Pt was seen today to assess progress since admission. Pt was not enthusiastic about this provider's attempts to speak with him this morning. He stated, "oh gees......everyone want to talk, I don't see the point." Pt continued to voice his frustration while including his delusions that he is dying and that our treatment efforts are only to "make money off a dying man." This provider attempted to reassure patient that we have seen him in a condition much improved from this, and that we are attempting to work with him to return to that state. Pt states he took his medications, with much encouragement, this morning - but "I don't know why, I'm gonna anyway from this diabetes. They keep telling me I don't have it, but I don't believe that. And anyways, the Zoloft is for depression. I'm not depressed, I'm dying." Pt did engage in a longer, more superficial visit with this provider in the afternoon. While he was not able to tolerate a deep discussion about his treatment plan, he was able to share a bit about his interest in football. He then reported a headache, but declined this provider's offers of either Tylenol or a heating pad. Reviewed recommendation to titrate quetiapine to 200mg (previously tolerated and beneficial outpatient dosing). Pt did not refuse the increase, but did state, "oh gosh...I'm going to be by then anyway." Pt denies other acute needs at this time. Physical Exam Psychiatric Orientation: alert and oriented x 3; + uncooperative (reporting he is not interested in conversing, stating nothing to discuss) Apperance: + disheveled and appeared stated age Pt dressed in sweatshirt and scrub pants, which have likely not been cleaned routinely. He appears disheveled, with long unkempt abreu hair and facial hair. Eye Contact: + poor eye contact (sitting with eyes shut for most of visit) Motor Behavior: no abnormal motor movements (observed while sitting on couch with arms crossed) Speech: normal rate/rhythm/volume of speech (irritated tone, brief responses to questions) Affect: + depressed affect and + irritable affect Mood: no depressed mood ("I'm not depressed, I'm dying") Thought Process: + perseveration (believes he is dying and feels nothing else matters) and + concrete thought process Thought Content: + preoccupation (believes he is dying ), + cognitive distortions (believes his treatment is only for staff's financial gain), + delusions (reporting ongoing belief that he is dying, has diabetes) and + hopelessness Hallucinations: no auditory hallucinations and no visual hallucinations Cognition: attention grossly intact and language grossly intact Insight: + impaired insight Judgement: + impaired judgement Vital Signs (Past 24 Hours) Last Vital Signs Temp 36.4 C L 04/11/19 10:31 Pulse 98 H 04/11/19 10:31 Resp 16 04/10/19 06:45 BP 118/90 04/11/19 10:31 Pulse Ox 99 04/09/19 06:00 Results & Data Laboratory Results Laboratory Results - last 24 hr 04/11/19 07:48 PT 15.4 H INR 1.5 H Current Inpatient Medications Current Inpatient Medications: Current Inpatient Medications Acetaminophen (Tylenol) 650 mg PO Q4H PRN PRN Reason: Headache or Minor Fever Stop: 05/04/19 17:30 Al Hydrox/Mg Hydrox/Simethicone (Maalox) 30 ml PO Q4H PRN PRN Reason: GI Upset Stop: 05/04/19 17:30 Enoxaparin Sodium (Lovenox) 150 mg SQ Q24H SETH Stop: 05/05/19 13:59 Last Admin: 04/10/19 14:10 Dose: 150 mg Documented by: Hydroxyzine HCl (Vistaril) 50 mg PO HSZ PRN PRN Reason: Insomnia Stop: 05/04/19 17:30 Hydroxyzine HCl (Vistaril) 25 mg PO Q4H PRN PRN Reason: Anxiety Stop: 05/04/19 17:30 Lorazepam (Ativan) 1 mg PO BID SETH Stop: 05/06/19 20:59 Last Admin: 04/11/19 09:02 Dose: 1 mg Documented by: Magnesium Hydroxide (Milk Of Magnesia) 30 ml PO DAILY PRN PRN Reason: Constipation Stop: 05/04/19 17:30 Quetiapine Fumarate (Seroquel) 150 mg PO HS SETH Stop: 05/08/19 21:59 Last Admin: 04/10/19 21:10 Dose: 150 mg Documented by: Sertraline HCl (Zoloft) 200 mg PO QAM SETH Stop: 05/05/19 08:59 Last Admin: 04/11/19 10:30 Dose: 200 mg Documented by: Simvastatin (Zocor) 40 mg PO HS SETH Stop: 05/04/19 21:59 Last Admin: 04/10/19 21:12 Dose: Not Given Documented by: Sodium Chloride ([place] Nasal) 1 - 2 sprays NA PRN PRN PRN Reason: Nasal Dryness/Congestion Stop: 05/04/19 17:30 Trazodone HCl (Desyrel) 100 mg PO HS PRN PRN Reason: Sleep Stop: 05/04/19 17:33 Warfarin Sodium (Coumadin) 15 mg PO TODAY@1600 ONE Stop: 04/11/19 16:01 Warfarin Sodium (Coumadin) 10 mg PO SuTuThSa@1600 SETH Stop: 05/12/19 15:59 Warfarin Sodium (Coumadin) 5 mg PO MoWeFr@1600 SETH Stop: 05/13/19 15:59 Mental Health & Subst Abuse Tx Psychiatrist Name of Psychiatrist: Dr Harrington Time of Appointment with Psychiatrist: Dr Todd Therapist Name of Therapist: Juan Menendez ACSW Bead Preparer Name of Bead Preparer: Av Perez Post Discharge Appointments Primary Care Physician Name Of Family Doctor: [facility] Contact Information Discharge Discharge Address: [address] [place] [address] CPT Code CPT Code 72028 (1) DVT (deep venous thrombosis) DVT location: lower extremity (2) Cellulitis Site of cellulitis: unspecified site Qualified Code(s): L03.90 - Cellulitis, unspecified (3) Depression Active/Remission status: currently active Depression Type: major depressive disorder Major depression episode severity: severe Major depression recurrence: recurrent Psychotic features: with psychotic features Qualified Code(s): F33.3 - Major depressive disorder, recurrent, severe with psychotic symptoms (4) Hyperlipidemia Hyperlipidemia type: unspecified Qualified Code(s): E78.5 - Hyperlipidemia, unspecified
[2019-04-11] MEDS: ENOXAPARIN 150 MG/ML SYR SQ SCH (13:53)
[2019-04-11] MEDS ORDERED: WARFARIN SOD 5 MG TAB PO ONE (16:00)
[2019-04-11] MEDS: WARFARIN SOD 10 MG TAB PO SCH (16:42)
[2019-04-11] MEDS: QUETIAPINE FUMARATE 300 MG TABLET PO SCH (21:20)
[2019-04-11] MEDS: SIMVASTATIN 40 MG TAB PO SCH (21:23)
[2019-04-12] MEDS: LORazepam 1 MG TAB PO SCH ×2 (07:50→21:23)
[2019-04-12] MEDS: SERTRALINE HCL 100 MG TABLET PO SCH (07:50)
[2019-04-12 08:38] LABS: INR 1.6 (0.9-1.1); Prothrombin Time 15.6 Seconds (9.0-12.0)
[2019-04-12] MEDS: ACETAMINOPHEN 325 MG TAB PO PRN (11:52)
--- NOTE | 2019-04-12 12:06 | Psychiatric Progress Note ---
Date of Service April 12, 2019 Impression / Recommendations Surya Howard is a 59-year-old single male with a history of severe psychotic depression and generalized anxiety, as well as long-standing treatment nonadherence which has resulted in involuntary outpatient commitment, who was just discharged from our unit 2 weeks prior to being hospitalized medically for DVT and lower extremity cellulitis in the context of medication nonadherence at home. He decompensated rapidly after discharge from the behavioral health unit, and was seen in the ER 3 times before he was ultimately hospitalized. He admits he was noncompliant with medications at home, which likely led to his DVT and cellulitis, as well as his psychiatric decompensation. Although he has had a good response to sertraline and quetiapine in the past, he had been refusing these medications here for unclear reasons. Compliance has improved, but he at times requires intervention and reassurance from staff to take medications. Hospitalist consult over weekend regarding progression of DVT and anticoagulation management, appreciate recommendations. Dr. Loyola on board regarding subtherapeutic INR, which places him at ongoing risk for DVT/PE, appreciate recommendations below. He continues to express delusions of persecution, hopelessness, and is unable to rationally manipulate information or appreciate the consequences of his actions. Pt was converted to an inpatient 304 as of hearing on 04/08/19. Inpatient treatment is medically necessary due to the risk of , disability, or serious injury if discharged, which is as a direct result of his mental illness, which impairs his judgment. It appears likely that he will need a supervised living situation at discharge, as he is not able to care for himself living independently in the community, and is being considered for [facility], for which he has now signed an YAYA. (1) Depression: 04/05 -continue sertraline 200 mg daily and quetiapine 50 mg at bedtime, which he is intermittently refusing. If he does not become more compliant with oral medications, we will pursue medications over objection, as his psychotic depression is unlikely to remit without medication, and he has responded well to these medications in the past. -Get records from outpatient psychiatrist, and coordinate care with his outpatient therapist and case management coordinator. -Brother, Amie, is his power of real estate attorney we will enlist his assistance with medical decision making as the patient currently lacks capacity to refuse the recommended treatment. -Encourage patient to be out of bed during the day and participating in groups and therapy. Consider locking his door during group time if he is unable to do this on his own. -He was on an involuntary outpatient commitment, so we will file for a conversion hearing to convert to 304 involuntary treatment. 04/06 -patient has refused sertraline the past 2 days, and although he took quetiapine the first night, he refused it last night. He is refusing all groups, has not bathed, and is refusing to eat and less staff bring food to his room. -We will place him in a medically necessary private room due to severity of mood and psychotic symptoms, and request staff to lock his door during group time him to be more engaged in treatment. -Staff contacted the patient's [id number], who clarified that the patient does not actually have a power of real estate attorney, although this has been documented on admission here. She reported the family is frustrated and concerned with the patient's lack of ability to care for his mental and physical needs. The family has been exploring supportive living, specifically [facility]. -Patient's case management coordinator, Av Perez, will come in for a meeting tomorrow. 04/07 -improved medication compliance with staff support; continue sertraline 200 mg daily and increase quetiapine to 100 mg at bedtime. -network services project manager, Av Perez, is coming to meet with patient today. 04/08 - Continue sertraline 200mg and increase quetiapine to 150mg HS. -On 304 commitment. Continue to encourage him to sign YAYA for [facility] 04/09 -pt refused quetiapine last night, having dose tonight be 1/2 of 300mg pill of quetiapine to help lower pill burden and might hold his lipid med tonight as well to help improve likelihood of pt taking his atypical antipsychotic dose that seems to be medication most needed at this time. goal is to titrate up quetiapine. Pharmacy has 50,100,200, and 300mg size pills, (in Xr form there are 150mg size, if switching to xr in future would advise dosing around 8pm. addressed pt delusional thinking and attempted reality testing. 04/10 took seroquel 150mg dose on 04/09 and noticing some improvement today pt might be improving some and might be more open to treatment ceased MNPR at this time 04/11 - Continue sertraline 200mg daily - will titration quetiapine to 200mg daily, can give previous dose of 150mg (1/2 of 300mg tablet) if refuses - Having a rather difficult day today, limited engagement in programming, continues to believe he is dying 04/12 - Continue as above. Pt refused quetiapine last evening, to receive titrated dose of 200mg tonight if compliant - Had a decent morning, though returned to fixation on dying by the afternoon (2) Catatonia: 04/05 -continue Lorazepam 2 mg twice daily and taper over hospital stay. Continue to treat underlying medical conditions as below. 04/06 -decrease Lorazepam to 1 mg twice daily, as he is intermittently refusing doses and it has not been overly helpful. (3) Generalized anxiety disorder: 04/05 -continue SSRI and lorazepam as above, offer hydroxyzine as needed for anxiety. Consider resuming buspirone if indicated. (4) Cellulitis: 04/05 -complete course of Keflex, last dose 04/08/2019. Infection is resolving. (5) DVT (deep venous thrombosis): 04/05 -continue Coumadin 5 mg daily, daily PT/INR, and Lovenox until INR is therapeutic. Coordinate care with Dr. Loyola, who sees him at the anticoagulation clinic. 04/07 -INR is 1.2 today, continue Coumadin and Lovenox. Coordinate with Dr. Loyola 04/11 - Reviewed consultation recommendations - discussed recs with Dr. Loyola via phone - Orders provided for patient to receive 15mg of warfarin today, then a schedule of 10mg daily SuTuThSa, and 5mg daily MWF - Recommended that enoxaparin continue until his INR is therapeutic for two days (two day overlap) - Dr. Loyola to continue to follow (6) Hyperlipidemia: 04/05 -continue home statin. 04/09 and 04/10 aiming for pt to take med but comfortable with pt refusing this med at current time if helps him obtain his other medications, aim is for improved meed compliance occur as psychiatrically improves, lexy since currently pt pill load a factor in pt compliance Inventory Assets Strengths: Educated, supportive family Needs: Compliance with treatment, increase community supports Risk Factors Assessment Male: Yes : Yes Do You Have Access To A Gun?: No Health Problems: Yes Mental Health Diagnoses: Yes Substance Use Disorders: No Previous Attempt: Yes Family History of Suicide: No Previous Psychiatric Hospitalization: Yes Hopelessness: Yes Smoker: No Protective Factors Assessment Evangelical Beliefs: No : No Responsible for Young Children: No Employed: No Stable Relationships: Yes Supportive Family: Yes Good Rapport with Provider: No Interval History Identifying Information YINKA ROMERO is a 59-year-old M who currently lives alone in an [place], has a history of depression with psychosis, generalized anxiety disorder, treatment nonadherence and was on an involuntary outpatient commitment, and was admitted on 04/04/19 16:39 on a 302 involuntary commitment for depression with psychosis, treatment nonadherence, and inability to care for himself. Chief Complaint "Oh, I do not know. I am just too far gone." Review of Systems Notes Constitutional: reports fatigue, headache Cardiovascular: reporting perceived coolness of extremities, believing this to be due to "diabetes" Respiratory: denied Gastrointestinal: denied Neurological: denied Psychiatric: denies symptoms other than stated above Total of at least 10 systems reviewed, pertinent positives as above and in HPI. Sleep Information Total Hours of Sleep: 7.25 Sleep Comments: pt on q-15 minute checks Meal Information Percent Meal Consumed - Breakfast: 100 Percent Meal Consumed - Lunch: 100 Percent Meal Consumed - Dinner: 100 Nutrition Comment: documented from the patient meal record Subjective Subjective Patient was seen & assessed and interval progress reviewed with nursing and social work. Staff reports the patient continues to fluctuate in regard to his condition. He reportedly had a decent weekend, but is now back to being fixated on the belief that he is going to . It is reported the patient refused his scheduled dose of Seroquel last evening, but did take his morning medications. Patient was seen today to assess progress since admission. This provider attempted to meet with him one-on-one in the office; however, when patient was approached by this provider he states "I do not know what good it will do, I have nothing to say. He can have a seat here." At the time of this interaction, the patient was sitting in the day area. This provider informed the patient that his peers may be returning to the area, and the conversation may be overheard. The office was again offered to the patient to provide a private location for us to talk. Patient verbalized understanding of this; however, stated he wished to speak with this provider in the day room. Patient states that he has not been feeling well, continuing to believe that he has diabetes that is "too far gone." The patient states that he feels this is the case because of coolness in his arms and legs. Patient has also noticed visual changes that he believes are related to diabetes as well. The patient reiterates again his belief that he had "too much bread too close together" which resulted in this diagnosis. This provider attempted again to explain to the patient that his lab work is not suggestive of a diabetes diagnosis, questioning the patient if these changes may be be related to other causes, as he was hospitalized with a DVT prior to his psychiatric admission. Patient states "yeah, they keep trying to tell me that. I was not eating as poorly, that is probably why the numbers went down." The patient shares with this provider that he believes his health began to go downhill due to "every 7 years they said you go through a change, it was probably the 7-year change. I was making stupid decisions." This provider attempted to reassure the patient by reminding him of times where he did well living independently while taking psychiatric medications. Patient continues to feel as though his situation is hopeless. Patient was asked about the presence of suicidal ideation, to which she responded "not now, I am getting ready to ." Patient denies other needs at this time, as he feels that there is nothing staff can do to help him. Patient was reminded of the importance of medication compliance and was reassured that staff's goal is to get him feeling better and work towards eventual discharge, which we feel he will eventually be capable of. Physical Exam Psychiatric Orientation: alert, oriented to person and oriented to place; + uncooperative Apperance: appropriately dressed, + disheveled and appeared stated age Eye Contact: + poor eye contact Patient avoids direct eye contact, spending part of interview with his eyes closed Motor Behavior: steady gait and station and no abnormal motor movements Speech: normal rate/rhythm/volume of speech (Soft, but somewhat irritable tone) Affect: + depressed affect, + anxious affect and + irritable affect Mood: + anxious mood ("I am just anxious, that is the only problem"); no depressed mood ("And not depressed") Thought Process: + perseveration (Patient remains fixated on belief that he has diabetes and that he is dying) and + concrete thought process Thought Content: + preoccupation (With delusional belief that he is dying due to "diabetes"), + delusions, + hopelessness and + worthlessness Suicidal Thoughts: denies suicidal thoughts ("Not now, I am getting ready to ") Hallucinations: no auditory hallucinations and no visual hallucinations Cognition: language grossly intact; + attention not intact Estimated Intelligence: consistent with education level Insight: + impaired insight Judgement: + impaired judgement Vital Signs (Past 24 Hours) Last Vital Signs Temp 36.4 C L 04/11/19 10:31 Pulse 98 H 04/11/19 10:31 Resp 16 04/10/19 06:45 BP 118/90 04/11/19 10:31 Pulse Ox 99 04/09/19 06:00 Results & Data Laboratory Results Laboratory Results - last 24 hr 04/12/19 08:14 PT 15.6 H INR 1.6 H Current Inpatient Medications Current Inpatient Medications: Current Inpatient Medications Acetaminophen (Tylenol) 650 mg PO Q4H PRN PRN Reason: Headache or Minor Fever Stop: 05/04/19 17:30 Last Admin: 04/12/19 11:52 Dose: 650 mg Documented by: Al Hydrox/Mg Hydrox/Simethicone (Maalox) 30 ml PO Q4H PRN PRN Reason: GI Upset Stop: 05/04/19 17:30 Enoxaparin Sodium (Lovenox) 150 mg SQ Q24H SETH Stop: 05/05/19 13:59 Last Admin: 04/11/19 13:53 Dose: 150 mg Documented by: Hydroxyzine HCl (Vistaril) 50 mg PO HSZ PRN PRN Reason: Insomnia Stop: 05/04/19 17:30 Hydroxyzine HCl (Vistaril) 25 mg PO Q4H PRN PRN Reason: Anxiety Stop: 05/04/19 17:30 Lorazepam (Ativan) 1 mg PO BID SETH Stop: 05/06/19 20:59 Last Admin: 04/12/19 07:50 Dose: 1 mg Documented by: Magnesium Hydroxide (Milk Of Magnesia) 30 ml PO DAILY PRN PRN Reason: Constipation Stop: 05/04/19 17:30 Quetiapine Fumarate (Seroquel) 200 mg PO HS SETH Stop: 05/12/19 21:59 Sertraline HCl (Zoloft) 200 mg PO QAM SETH Stop: 05/05/19 08:59 Last Admin: 04/12/19 07:50 Dose: 200 mg Documented by: Simvastatin (Zocor) 40 mg PO HS SETH Stop: 05/04/19 21:59 Last Admin: 04/11/19 21:23 Dose: Not Given Documented by: Sodium Chloride (Catron Nasal) 1 - 2 sprays NA PRN PRN PRN Reason: Nasal Dryness/Congestion Stop: 05/04/19 17:30 Trazodone HCl (Desyrel) 100 mg PO HS PRN PRN Reason: Sleep Stop: 05/04/19 17:33 Warfarin Sodium (Coumadin) 10 mg PO SuTuThSa@1600 SETH Stop: 05/12/19 15:59 Last Admin: 04/11/19 16:42 Dose: 10 mg Documented by: Warfarin Sodium (Coumadin) 5 mg PO MoWeFr@1600 SETH Stop: 05/13/19 15:59 Warfarin Sodium (Coumadin) 5 mg PO TODAY@1600 ONE Stop: 04/12/19 16:01 Mental Health & Subst Abuse Tx Psychiatrist Name of Psychiatrist: Dr Harrington Time of Appointment with Psychiatrist: Dr Todd Therapist Name of Therapist: Juan BOLAND Research Statistician Name of Research Statistician: Av Perez Post Discharge Appointments Primary Care Physician Name Of Family Doctor: Catalina [facility] Contact Information Discharge Discharge Address: [address] [place] [address] CPT Code CPT Code 93841 (1) DVT (deep venous thrombosis) DVT location: lower extremity (2) Cellulitis Site of cellulitis: unspecified site Qualified Code(s): L03.90 - Cellulitis, unspecified (3) Depression Active/Remission status: currently active Depression Type: major depressive disorder Major depression episode severity: severe Major depression recurrenc e: recurrent Psychotic features: with psychotic features Qualified Code(s): F33.3 - Major depressive disorder, recurrent, severe with psychotic symptoms (4) Hyperlipidemia Hyperlipidemia type: unspecified Qualified Code(s): E78.5 - Hyperlipidemia, unspecified
[2019-04-12] MEDS: ENOXAPARIN 150 MG/ML SYR SQ SCH (14:10)
[2019-04-12] MEDS: WARFARIN SOD 10 MG TAB PO SCH (15:34)
[2019-04-12] MEDS ORDERED: WARFARIN SOD 5 MG TAB PO ONE (16:00)
[2019-04-12] MEDS: QUETIAPINE FUMARATE 200 MG TAB PO SCH (21:19)
[2019-04-12] MEDS: SIMVASTATIN 40 MG TAB PO SCH (21:24)
[2019-04-13 07:54] LABS: Hematocrit (blood only) 43.8 % (42-52); Hemoglobin 14.6 g/dL (14.0-18.0); Mean Corpuscular Hemoglobin 29.6 pg (25-34); Mean Corpuscular Hgb Conc 33.3 g/dL (32-36); Mean Corpuscular Volume 88.8 fL (80-100); Platelet Count 258 K/uL (130-400); RDW Coefficient of Variation 14.4 % (11.5-14.5); RDW Standard Deviation 46.6 fL (36.4-46.3); Red Blood Count 4.93 M/uL (4.7-6.1); White Blood Count 6.27 K/uL (4.8-10.8)
[2019-04-13 08:02] LABS: INR 1.8 (0.9-1.1); Prothrombin Time 17.5 Seconds (9.0-12.0)
[2019-04-13 08:19] LABS: Creatinine Clr Calc Pharmacy 93.9 ml/min; Est GFR (African American) 94.9; Est GFR (Non-African American) 81.9
[2019-04-13] MEDS: LORazepam 1 MG TAB PO SCH (08:54)
[2019-04-13] MEDS: SERTRALINE HCL 100 MG TABLET PO SCH ×2 (08:54→09:25)
--- NOTE | 2019-04-13 09:06 | Psychiatric Progress Note ---
Date of Service April 13, 2019 Impression / Recommendations Surya Howard is a 59-year-old single male with a history of severe psychotic depression and generalized anxiety, as well as long-standing treatment nonadherence which has resulted in multiple involuntary outpatient commitments, who was just discharged from our unit 2 weeks prior to being hospitalized medically for DVT and lower extremity cellulitis in the context of medication nonadherence at home. He decompensated rapidly after discharge from the behavioral health unit, and was seen in the ER 3 times before he was ultimately hospitalized. He admits he was noncompliant with medications at home, which likely led to his DVT and cellulitis, as well as his psychiatric decompensation. He remains severely depressed and psychotic, with prominent delusions and negativistic thinking. Although he has had a good response to sertraline and quetiapine in the past, he had been intermittently refusing these medications here for unclear reasons, only getting about half of the doses. He also require significant encouragement from staff to take medications, and repeatedly states that treatment is pointless as he believes he is going to at any moment. He continues to express delusions of persecution, hopelessness, and is unable to rationally manipulate information or appreciate the consequences of his actions. Pt was converted to an inpatient 304 as of hearing on 04/08/19, and I believe he will require medications over objection, with a plan to transition to a long-acting injectable antipsychotic. Inpatient treatment is medically necessary due to the risk of , disability, or serious injury if discharged, which is as a direct result of his mental illness, which impairs his judgment. It appears likely that he will need a supervised living situation at discharge, as he is not able to care for himself living independently in the community, and is being considered for [facility], for which he has now signed an YAYA. (1) Depression: 04/05 -continue sertraline 200 mg daily and quetiapine 50 mg at bedtime, which he is intermittently refusing. If he does not become more compliant with oral medications, we will pursue medications over objection, as his psychotic depression is unlikely to remit without medication, and he has responded well to these medications in the past. -Get records from outpatient psychiatrist, and coordinate care with his outpatient therapist and disability case manager. -Brother, Amie, is his power of assistant county attorney we will enlist his assistance with medical decision making as the patient currently lacks capacity to refuse the r ecommended treatment. -Encourage patient to be out of bed during the day and participating in groups and therapy. Consider locking his door during group time if he is unable to do this on his own. -He was on an involuntary outpatient commitment, so we will file for a conversion hearing to convert to 304 involuntary treatment. 04/06 -patient has refused sertraline the past 2 days, and although he took quetiapine the first night, he refused it last night. He is refusing all groups, has not bathed, and is refusing to eat and less staff bring food to his room. -We will place him in a medically necessary private room due to severity of mood and psychotic symptoms, and request staff to lock his door during group time him to be more engaged in treatment. -Staff contacted the patient's [id number], who clarified that the patient does not actually have a power of assistant county attorney, although this has been documented on admission here. She reported the family is frustrated and concerned with the patient's lack of ability to care for his mental and physical needs. The family has been exploring supportive living, specifically [facility] -Patient's disability case manager, Av Perez, will come in for a meeting tomorrow. 04/07 -improved medication compliance with staff support; continue sertraline 200 mg daily and increase quetiapine to 100 mg at bedtime. -order processing manager, Av Perez, is coming to meet with patient today. 04/08 - Continue sertraline 200mg and increase quetiapine to 150mg HS. -On 304 commitment. Continue to encourage him to sign YAYA for [facility] 04/09 -pt refused quetiapine last night, having dose tonight be 1/2 of 300mg pill of quetiapine to help lower pill burden and might hold his lipid med tonight as well to help improve likelihood of pt taking his atypical antipsychotic dose that seems to be medication most needed at this time. goal is to titrate up quetiapine. Pharmacy has 50,100,200, and 300mg size pills, (in Xr form there are 150mg size, if switching to xr in future would advise dosing around 8pm. addressed pt delusional thinking and attempted reality testing. 04/10 took seroquel 150mg dose on 04/09 and noticing some improvement today pt might be improving some and might be more open to treatment ceased MNPR at this time 04/11 - Continue sertraline 200mg daily - will titration quetiapine to 200mg daily, can give previous dose of 150mg (1/2 of 300mg tablet) if refuses - Having a rather difficult day today, limited engagement in programming, continues to believe he is dying 04/12 - Continue as above. Pt refused quetiapine last evening, to receive titrated dose of 200mg tonight if compliant - Had a decent morning, though returned to fixation on dying by the afternoon 04/13 -Continue sertraline, has been taking the 200 mg dose for the past 7 days. -Continues to intermittently refuse quetiapine, only taking it on 50% of days in the past week, and received first dose of 200 mg at bedtime last night. He is unwilling to discuss other atypical antipsychotics and remains floridly delusional without insight. He lacks capacity to refuse treatment recommendations for an antipsychotic, as 1 of his delusions is that he has diabetes and is going to at any moment, so believes any treatment is futile. Recommend medications over objection, with a trial of either aripiprazole or paliperidone to target psychotic symptoms, with an IM of olanzapine for refusal of oral medication. If he responds well and tolerates the oral antipsychotic, will then transition him to the long-acting injectable form. We will asked Dr. Delarosa to see him tomorrow for a second opinion. (2) Catatonia: 04/05 -continue Lorazepam 2 mg twice daily and taper over hospital stay. Continue to treat underlying medical conditions as below. 04/06 -decrease Lorazepam to 1 mg twice daily, as he is intermittently refusing doses and it has not been overly helpful. 04/13 -patient has been refusing the at bedtime dose of lorazepam, so will discontinue it. The morning dose can likely be discontinued prior to discharge. (3) Generalized anxiety disorder: 04/05 -continue SSRI and lorazepam as above, offer hydroxyzine as needed for anxiety. Consider resuming buspirone if indicated. (4) Cellulitis: 04/05 -complete course of Keflex, last dose 04/08/2019. Infection is resolving. (5) DVT (deep venous thrombosis): 04/05 -continue Coumadin 5 mg daily, daily PT/INR, and Lovenox until INR is therapeutic. Coordinate care with Dr. Loyola, who sees him at the anticoagulation clinic. 04/07 -INR is 1.2 today, continue Coumadin and Lovenox. Coordinate with Dr. Loyola 04/11 - Reviewed consultation recommendations - discussed recs with Dr. Loyola via phone - Orders provided for patient to receive 15mg of warfarin today, then a schedule of 10mg daily SuTuThSa, and 5mg daily MWF - Recommended that enoxaparin continue until his INR is therapeutic for two days (two day overlap) - Dr. Loyola to continue to follow (6) Hyperlipidemia: 04/05 -continue home statin. 04/09 and 04/10 aiming for pt to take med but comfortable with pt refusing this med at current time if helps him obtain his other medications, aim is for improved meed compliance occur as psychiatrically improves, lexy since currently pt pill load a factor in pt compliance Inventory Assets Strengths: Educated, supportive family Needs: Compliance with treatment, increase community supports Risk Factors Assessment Male: Yes : Yes Do You Have Access To A Gun?: No Health Problems: Yes Mental Health Diagnoses: Yes Substance Use Disorders: No Previous Attempt: Yes Family History of Suicide: No Previous Psychiatric Hospitalization: Yes Hopelessness: Yes Smoker: No Protective Factors Assessment Yazidism Beliefs: No : No Responsible for Young Children: No Employed: No Stable Relationships: Yes Supportive Family: Yes Good Rapport with Provider: No Interval History Identifying Information YINKA ROMERO is a 59-year-old M who currently lives alone in an [place], has a history of depression with psychosis, generalized anxiety disorder, treatment nonadherence and was on an involuntary outpatient commitment, and was admitted on 04/04/19 16:39 on a 302 involuntary commitment for depression with psychosis, treatment nonadherence, and inability to care for himself. Chief Complaint "Why do you guys keep torturing me?" Review of Systems Sleep Information Total Hours of Sleep: 8 Sleep Comments: pt on q-15 minute checks Meal Information Percent Meal Consumed - Breakfast: 100 Percent Meal Consumed - Lunch: 100 Percent Meal Consumed - Dinner: 100 Nutrition Comment: documented from the patient meal record Subjective Subjective been irritable and difficult with staff,Patient was seen & assessed and interval progress reviewed with treatment team. Staff report he continues to refuse medications intermittently, has been irritable and difficult with staff, requiring significant encouragement to do anything related to treatment. He continues to endorse delusions that he has diabetes and is going to at any moment, that his father had "super human organs" that he received from the [place], that he could have played 3 sports professionally and ran a mile in under 2 minutes. He said that he had "a perfect body" but destroyed it by eating the wrong foods. He briefly demonstrated elevated mood, was singing and dancing while smiling during exercise group, but then returned to negative ruminations. Today he was seen with Iraida Barnhart and Tito Ordaz, MS2s, with his permission. He reports he is "terrible, I'm dying, got the diabetes, can barely walk." He has multiple complaints, that staff are giving him medications and talking to him, and says it is pointless as "I'm going to ." He talks angrily about hospital staff, stating that they are only giving him medications because they are making money off of him. He denies that he has gone to any groups, saying he can "barely move." Reflected back to him that he was participating in exercise group yesterday and was dancing and smiling, and he agreed, saying he felt good "but only for a minute." He maintains that he is hopeless, nothing will improve, and he will at any moment. He does not think the medications are helping him, and is unwilling to talk about it, and will not say why. Discussed the options for KWONG, which he would not discuss and only answered "no." He did not respond when asked if it would help to have fewer pills to take daily. Physical Exam Psychiatric Orientation: alert; + uncooperative (At times refuses to answer questions, other times answers curtly.) Apperance: + disheveled and appeared stated age; + inappropriately groomed Reluctantly came to the interview room, sat slumped over with head and hands. Limited hygiene and grooming. Eye Contact: + poor eye contact Motor Behavior: steady gait and station and no abnormal motor movements Claims he cannot walk, but walking without any apparent difficulty. Minimal, irritable tone. Affect: + depressed affect, + irritable affect, + constricted affect and mood congruent with affect "Terrible." Thought Process: goal directed thought process and + perseveration Irrational. Thought Content: + preoccupation, + obsessions, + paranoid, + cognitive distortions, + delusions, + hopelessness, + worthlessness and + self deprecation Suicidal Thoughts: denies suicidal thoughts But believes he is going to at any moment. Homicidal Thoughts: denies homicidal thoughts Hallucinations: no auditory hallucinations Cognition: language grossly intact; + recent memory not intact, + remote memory not intact and + attention not intact Insight: + severely impaired insight Judgement: + severely impaired judgement Vital Signs (Past 24 Hours) Last Vital Signs Temp 36.4 C L 04/11/19 10:31 Pulse 98 H 04/11/19 10:31 Resp 16 04/10/19 06:45 BP 118/90 04/11/19 10:31 Pulse Ox 99 04/09/19 06:00 Results & Data Laboratory Results Laboratory Results - last 24 hr 04/13/19 04/13/19 04/13/19 07:36 07:36 07:36 WBC 6.27 RBC 4.93 Hgb 14.6 Hct 43.8 MCV 88.8 MCH 29.6 MCHC 33.3 RDW Std Deviation 46.6 H RDW Coeff of Christin 14.4 Plt Count 258 MPV 9.0 PT 17.5 H INR 1.8 H Creatinine 0.99 Est Cr Clr Drug Dosing 93.9 Est GFR ( Amer) 94.9 Est GFR (Non-Af Amer) 81.9 Current Inpatient Medications Current Inpatient Medications: Current Inpatient Medications Acetaminophen (Tylenol) 650 mg PO Q4H PRN PRN Reason: Headache or Minor Fever Stop: 05/04/19 17:30 Last Admin: 04/12/19 11:52 Dose: 650 mg Documented by: Al Hydrox/Mg Hydrox/Simethicone (Maalox) 30 ml PO Q4H PRN PRN Reason: GI Upset Stop: 05/04/19 17:30 Enoxaparin Sodium (Lovenox) 150 mg SQ Q24H SETH Stop: 05/05/19 13:59 Last Admin: 04/12/19 14:10 Dose: 150 mg Documented by: Hydroxyzine HCl (Vistaril) 50 mg PO HSZ PRN PRN Reason: Insomnia Stop: 05/04/19 17:30 Hydroxyzine HCl (Vistaril) 25 mg PO Q4H PRN PRN Reason: Anxiety Stop: 05/04/19 17:30 Lorazepam (Ativan) 1 mg PO QAM [facility] Stop: 05/13/19 08:59 Last Admin: 04/13/19 08:54 Dose: 1 mg Documented by: Magnesium Hydroxide (Milk Of Magnesia) 30 ml PO DAILY PRN PRN Reason: Constipation Stop: 05/04/19 17:30 Quetiapine Fumarate (Seroquel) 200 mg PO HS [facility] Stop: 05/12/19 21:59 Last Admin: 04/12/19 21:19 Dose: 200 mg Documented by: Sertraline HCl (Zoloft) 200 mg PO QAM [facility] Stop: 05/05/19 08:59 Last Admin: 04/13/19 08:54 Dose: Not Given Documented by: Simvastatin (Zocor) 40 mg PO HS [facility] Stop: 05/04/19 21:59 Last Admin: 04/12/19 21:24 Dose: Not Given Documented by: Sodium Chloride ([place] Nasal) 1 - 2 sprays NA PRN PRN PRN Reason: Nasal Dryness/Congestion Stop: 05/04/19 17:30 Trazodone HCl (Desyrel) 100 mg PO HS PRN PRN Reason: Sleep Stop: 05/04/19 17:33 Warfarin Sodium (Coumadin) 10 mg PO [id number]@1600 SETH Stop: 05/12/19 15:59 Last Admin: 04/12/19 15:34 Dose: 10 mg Documented by: Warfarin Sodium (Coumadin) 5 mg PO [id number]@1600 SETH Stop: 05/13/19 15:59 Mental Health & Subst Abuse Tx Psychiatrist Name of Psychiatrist: Dr Harrington Time of Appointment with Psychiatrist: Dr Todd Therapist Name of Therapist: Juan Menendez [facility] Skating Carhop Name of Skating Carhop: Av Perez Post Discharge Appointments Primary Care Physician Name Of Family Doctor: Catalina [facility] Contact Information Discharge Discharge Address: [address] [place] [address] CPT Code CPT Code 04877 (1) DVT (deep venous thrombosis) DVT location: lower extremity (2) Cellulitis Site of cellulitis: unspecified site Qualified Code(s): L03.90 - Cellulitis, unspecified (3) Depression Active/Remission status: currently active Depression Type: major depressive disorder Major depression episode severity: severe Major depression recurrence: recurrent Psychotic features: with psychotic features Qualified Code(s): F33.3 - Major depressive disorder, recurrent, severe with psychotic symptoms (4) Hyperlipidemia Hyperlipidemia type: unspecified Qualified Code(s): E78.5 - Hyperlipidemia, unspecified
[2019-04-13] MEDS: ENOXAPARIN 150 MG/ML SYR SQ SCH (13:42)
[2019-04-13] MEDS ORDERED: WARFARIN SOD 5 MG TAB PO SCH (16:00)
[2019-04-13] MEDS ORDERED: WARFARIN SOD 5 MG TAB PO ONE (16:00)
[2019-04-13] MEDS: QUETIAPINE FUMARATE 200 MG TAB PO SCH (20:39)
[2019-04-13] MEDS: SIMVASTATIN 40 MG TAB PO SCH (20:42)
[2019-04-14 08:22] LABS: Prothrombin Time 19.5 Seconds (9.0-12.0)
[2019-04-14] MEDS: SERTRALINE HCL 100 MG TABLET PO SCH (09:32)
[2019-04-14] MEDS: LORazepam 1 MG TAB PO SCH (09:32)
[2019-04-14] MEDS ORDERED: QUETIAPINE FUMARATE 200 MG TAB PO PRN (11:40)
[2019-04-14] MEDS ORDERED: OLANZapine 10 MG/2.1 ML SDV IM PRN (11:45)
--- NOTE | 2019-04-14 12:06 | Psychiatric Progress Note ---
Date of Service April 14, 2019 Impression / Recommendations Surya Howard is a 59-year-old single male with a history of severe psychotic depression and generalized anxiety, as well as long-standing treatment nonadherence which has resulted in multiple involuntary outpatient commitments, who was just discharged from our unit 2 weeks prior to being hospitalized medically for DVT and lower extremity cellulitis in the context of medication nonadherence at home. He decompensated rapidly after discharge from the behavioral health unit, and was seen in the ER 3 times before he was ultimately hospitalized. He admits he was noncompliant with medications at home, which likely led to his DVT and cellulitis, as well as his psychiatric decompensation. He remains severely depressed and psychotic, with prominent delusions and negativistic thinking. Although he has had a good response to sertraline and quetiapine in the past, he had been intermittently refusing these medications here for unclear reasons, only getting about half of the doses. The staff report that he is only taking his antipsychotic medication, quetiapine, about "half the time," and only then with a great deal of active encouragement from nursing staff. Dr. Vann has opined that medications over objection are medically necessary at this point, and I imagine for concurrence with this assessment. Without the appropriate psychiatric medications, consistently taken, the patient psychosis and associated risk of eminent serious harm to self such that inpatient psychiatric hospitalization will remain medically necessary, indefinitely. I have ordered aripiprazole 10 mg by mouth daily for janie psychosis, and have also ordered olanzapine 10 mg IM to be given over the patient's expressed consent, if necessary, should the patient refuse oral antipsychotic medications, currently aripiprazole. Quetiapine has been discontinued as a standing dose, but is being continued as" as needed" medication. It is noted that the patient is on multiple antipsychotic medications in the same drug class. Our hope is that we will be able to convince the patient to accept aripiprazole by mouth and, eventually, as tolerated we will convert to Ashlee Mainoniel. Quetiapine does seem to have been effective in helping with sleep, and we will order this, temporarily, for sleep "as needed." Olanzapine will not be given over the patient's refusal to take quetiapine. (1) Depression: 04/05 -continue sertraline 200 mg daily and quetiapine 50 mg at bedtime, which he is intermittently refusing. If he does not become more compliant with oral medications, we will pursue medications over objection, as his psychotic depression is unlikely to remit without medication, and he has responded well to these medications in the past. -Get records from outpatient psychiatrist, and coordinate care with his outpatient therapist and block and case maker. -Brother, Amie, is his power of attorney general we will enlist his assistance with medical decision making as the patient currently lacks capacity to refuse the recommended treatment. -Encourage patient to be out of bed during the day and participating in groups and therapy. Consider locking his door during group time if he is unable to do this on his own. -He was on an involuntary outpatient commitment, so we will file for a conversion hearing to convert to 304 involuntary treatment. 04/06 -patient has refused sertraline the past 2 days, and although he took quetiapine the first night, he refused it last night. He is refusing all groups, has not bathed, and is refusing to eat and less staff bring food to his room. -We will place him in a medically necessary private room due to severity of mood and psychotic symptoms, and request staff to lock his door during group time him to be more engaged in treatment. -Staff contacted the patient's [id number], who clarified that the patient does not actually have a power of attorney general, although this has been documented on admission here. She reported the family is frustrated and concerned with the patient's lack of ability to care for his mental and physical needs. The family has been exploring supportive living, specifically [facility]. -Patient's block and case maker, Av Perez, will come in for a meeting tomorrow. 04/07 -improved medication compliance with staff support; continue sertraline 200 mg daily and increase quetiapine to 100 mg at bedtime. -manager of training and development, Av Perez, is coming to meet with patient today. 04/08 - Continue sertraline 200mg and increase quetiapine to 150mg HS. -On 304 commitment. Continue to encourage him to sign YAYA for [facility] 04/09 -pt refused quetiapine last night, having dose tonight be 1/2 of 300mg pill of quetiapine to help lower pill burden and might hold his lipid med tonight as well to help improve likelihood of pt taking his atypical antipsychotic dose that seems to be medication most needed at this time. goal is to titrate up quetiapine. Pharmacy has 50,100,200, and 300mg size pills, (in Xr form there are 150mg size, if switching to xr in future would advise dosing around 8pm. addressed pt delusional thinking and attempted reality testing. 04/10 took seroquel 150mg dose on 04/09 and noticing some improvement today pt might be improving some and might be more open to treatment ceased MNPR at this time 04/11 - Continue sertraline 200mg daily - will titration quetiapine to 200mg daily, can give previous dose of 150mg (1/2 of 300mg tablet) if refuses - Having a rather difficult day today, limited engagement in programming, continues to believe he is dying 04/12 - Continue as above. Pt refused quetiapine last evening, to receive titrated dose of 200mg tonight if compliant - Had a decent morning, though returned to fixation on dying by the afternoon 04/13 -Continue sertraline, has been taking the 200 mg dose for the past 7 days. -Continues to intermittently refuse quetiapine, only taking it on 50% of days in the past week, and received first dose of 200 mg at bedtime last night. He is unwilling to discuss other atypical antipsychotics and remains floridly delusional without insight. He lacks capacity to refuse treatment recommendations for an antipsychotic, as 1 of his delusions is that he has diabetes and is going to at any moment, so believes any treatment is futile. Recommend medications over objection, with a trial of either aripiprazole or paliperidone to target psychotic symptoms, with an IM of olanzapine for refusal of oral medication. If he responds well and tolerates the oral antipsychotic, will then transition him to the long-acting injectable form. We will asked Dr. Delarosa to see him tomorrow for a second opinion. 04/14 - The patient continues to intermittently refuse quetiapine, only taking it on 50% of days in the past week. Today, he tells me that he will refuse quetiapine and all medications, stating, "What's the use? I'm dying." He is unwilling to discuss other antipsychotics and I agree with Dr. Vann's finding that he remains floridly delusional without insight. He lacks capacity to refuse treatment recommendations for an antipsychotic, as one of his delusions is that he has diabetes (he doesn't) and is going to "maybe right now." Within this context he tells me that treatment is futile and he will refuse to take what we are prescribing to him.. I endorse the recommendation for medications over objection. I have ordered aripiprazole 10 mg daily by mouth to treat the patient's psychosis, and I have ordered olanzapine 10 mg IM for refusal of p.o. aripiprazole. Without consistent application of antipsychotic medications at the appropriate dose, it can reasonably be expected that the patient will remain dangerous to himself to the degree that inpatient psychiatric hospitalization will remain medically necessary. (2) Catatonia: 04/05 -continue Lorazepam 2 mg twice daily and taper over hospital stay. Continue to treat underlying medical conditions as below. 04/06 -decrease Lorazepam to 1 mg twice daily, as he is intermittently refusing doses and it has not been overly helpful. 04/13 -patient has been refusing the at bedtime dose of lorazepam, so will discontinue it. The morning dose can likely be discontinued prior to discharge. 04/14 -The patient is poorly responsive, but not catatonic at this point. (3) Generalized anxiety disorder: 04/05 -continue SSRI and lorazepam as above, offer hydroxyzine as needed for anxiety. Consider resuming buspirone if indicated. 04/14 -The patient's anxious distress at this point seems primarily attributable to his delusional believes that he is moribund. Our plan is to continue to aggressively treat his psychosis and reassess anxious distress once the patie nt's psychotic features have resolved. (4) Cellulitis: 04/05 -complete course of Keflex, last dose 04/08/2019. Infection is resolving. (5) DVT (deep venous thrombosis): 04/05 -continue Coumadin 5 mg daily, daily PT/INR, and Lovenox until INR is therapeutic. Coordinate care with Dr. Loyola, who sees him at the a nticoagulation clinic. 04/07 -INR is 1.2 today, continue Coumadin and Lovenox. Coordinate with Dr. Loyola 04/11 - Reviewed consultation recommendations - discussed recs with Dr. Loyola via phone - Orders provided for patient to receive 15mg of warfarin today, then a schedule of 10mg daily SuTuThSa, and 5mg daily MWF - Recommended that enoxaparin continue until his INR is therapeutic for two days (two day overlap) - Dr. Loyola to continue to follow 04/14 -Anticoagulation therapy continues. PT and PTT values are as expected. -The patient reports no pain or tenderness in his lower extremities. (6) Hyperlipidemia: 04/05 -continue home statin. 04/09 and 04/10 aiming for pt to take med but comfortable with pt refusing this med at current time if helps him obtain his other medications, aim is for improved meed compliance occur as psychiatrically improves, lexy since currently pt pill load a factor in pt compliance Inventory Assets Strengths: Educated, supportive family Needs: Compliance with treatment, increase community supports Risk Factors Assessment Male: Yes : Yes Do You Have Access To A Gun?: No Health Problems: Yes Mental Health Diagnoses: Yes Substance Use Disorders: No Previous Attempt: Yes Family History of Suicide: No Previous Psychiatric Hospitalization: Yes Hopelessness: Yes Smoker: No Protective Factors Assessment Tenriism Beliefs: No : No Responsible for Young Children: No Employed: No Stable Relationships: Yes Supportive Family: Yes Good Rapport with Provider: No Interval History Identifying Information YINKA ROMERO is a 59-year-old M who currently lives alone in an [place], has a history of depression with psychosis, generalized anxiety disorder, treatment nonadherence and was on an involuntary outpatient commitment, and was admitted on 04/04/19 16:39 on a 302 involuntary commitment for depression with psychosis, treatment nonadherence, and inability to care for himself. Chief Complaint "I am dying". Review of Systems Sleep Information Total Hours of Sleep: 6 Sleep Comments: pt on q-15 minute checks Meal Information Percent Meal Consumed - Breakfast: 100 Percent Meal Consumed - Lunch: 100 Percent Meal Consumed - Dinner: 100 Nutrition Comment: documented from the patient meal record Subjective Subjective Patient was seen & assessed and interval progress reviewed with treatment team. I met individually with the patient in order to assess his current mental status, evaluate his response to treatment, coordinate any necessary changes in his treatment regimen with the patient, and address issues and concerns that may arise. I approached the patient while he was standing in the day room and he immediately told me that he was unable to stand or do anything other than lay down because he was "dying." With his permission, I followed him to the bedroom and interviewed him while he sat bedside with his hands and his head. He was poorly responsive, but did respond to questions following significant delays. He reports that he has diabetes, and when I assured him (as have others) that his tests do not show that he has diabetes, he insists that he does and that he got it from eating a submarine sandwich. (Evidently, the patient did have slightly elevated blood sugars at one point but does not meet criteria for diabetes.) Within this context, the patient insists that he is dying and expects to be soon, possibly in a matter of minutes. I reviewed various treatment options, including a number of different antipsychotic medications that I believe will effectively treat his psychosis, but the patient tells me that he will refuse all medications offered at this point because he is dying and he has "what is the use? I will be , probably today." Physical Exam Psychiatric Orientation: alert and oriented to person The patient would not respond to other orientation questions today. Apperance: + disheveled Eye Contact: + poor eye contact Motor Behavior: + psychomotor retardation The patient said for the entire interview at the edge of his bed with his head in his hands. The patient is nonspontaneous and at first refuses to answer questions at all. With prompting, he eventually begins to answer questions, but there is a significant delay between questions and answers, and the answers are usually spa rse. Affect: + depressed affect Mood: + depressed mood The patient states, "Wouldn't you be depressed? I am dying." Thought Process: + thought blocking and + concrete thought process Thought Content: + delusions (As above, the patient is convinced that he has diabetes (he does not) and that he is about to any minute. Within this context, he says that there is no point in taking medications, no point in taking care of himself, and no point in maintaining adequate nutrition.) Suicidal Thoughts: denies suicidal thoughts Homicidal Thoughts: denies homicidal thoughts The patient does not respond to questions regarding perceptual disturbances. He does, at times, appear to be responding to internal stimuli. Estimated Intelligence: average estimated intelligence Insight: + severely impaired insight Judgement: + severely impaired judgement Vital Signs (Past 24 Hours) Last Vital Signs Temp 36.4 C L 04/11/19 10:31 Pulse 98 H 04/11/19 10:31 Resp 16 04/10/19 06:45 BP 118/90 04/11/19 10:31 Pulse Ox 99 04/09/19 06:00 Results & Data Laboratory Results Laboratory Results - last 24 hr 04/14/19 07:58 PT 19.5 H INR 2.0 H Current Inpatient Medications Current Inpatient Medications: Current Inpatient Medications Acetaminophen (Tylenol) 650 mg PO Q4H PRN PRN Reason: Headache or Minor Fever Stop: 05/04/19 17:30 Last Admin: 04/12/19 11:52 Dose: 650 mg Documented by: Al Hydrox/Mg Hydrox/Simethicone (Maalox) 30 ml PO Q4H PRN PRN Reason: GI Upset Stop: 05/04/19 17:30 Aripiprazole (Abilify) 10 mg PO QAM SETH Stop: 05/14/19 11:44 Enoxaparin Sodium (Lovenox) 150 mg SQ Q24H SETH Stop: 05/05/19 13:59 Last Admin: 04/13/19 13:42 Dose: 150 mg Documented by: Hydroxyzine HCl (Vistaril) 50 mg PO HSZ PRN PRN Reason: Insomnia Stop: 05/04/19 17:30 Hydroxyzine HCl (Vistaril) 25 mg PO Q4H PRN PRN Reason: Anxiety Stop: 05/04/19 17:30 Lorazepam (Ativan) 1 mg PO QAM SETH Stop: 05/13/19 08:59 Last Admin: 04/14/19 09:32 Dose: Not Given Documented by: Magnesium Hydroxide (Milk Of Magnesia) 30 ml PO DAILY PRN PRN Reason: Constipation Stop: 05/04/19 17:30 Olanzapine (Zyprexa) 10 mg IM DAILY SETH Stop: 05/14/19 11:44 Quetiapine Fumarate (Seroquel) 200 mg PO HS PRN PRN Reason: Sleep Stop: 05/14/19 11:39 Sertraline HCl (Zoloft) 200 mg PO QAM SETH Stop: 05/05/19 08:59 Last Admin: 04/14/19 09:32 Dose: Not Given Documented by: Simvastatin (Zocor) 40 mg PO HS SETH Stop: 05/04/19 21:59 Last Admin: 04/13/19 20:42 Dose: Not Given Documented by: Sodium Chloride ([place] Nasal) 1 - 2 sprays NA PRN PRN PRN Reason: Nasal Dryness/Congestion Stop: 05/04/19 17:30 Trazodone HCl (Desyrel) 100 mg PO HS PRN PRN Reason: Sleep Stop: 05/04/19 17:33 Warfarin Sodium (Coumadin) 10 mg PO [id number] SETH Stop: 05/12/19 15:59 Last Admin: 04/12/19 15:34 Dose: 10 mg Documented by: Warfarin Sodium (Coumadin) 5 mg PO [id number]@1600 SETH Stop: 05/13/19 15:59 Last Admin: 04/13/19 16:26 Dose: 5 mg Documented by: Mental Health & Subst Abuse Tx Psychiatrist Name of Psychiatrist: [facility] - Dr. Harrington Psychiatrist's Time of Appointment with Psychiatrist: Dr Todd Psychiatric Appointment Comment: [address] [place] [address] [address], [place] [address] Therapist Name of Therapist: [employer] - Juan Menendez [facility] Therapist's Therapy Appointment Comment: [address] [facility] Foundry Equipment Mechanic Name of Foundry Equipment Mechanic: [employer] - Av Perez Phone Number for Foundry Equipment Mechanic: [phone] Case Management Appointment Comment: [address] [facility], [address], [place] Post Discharge Appointments Primary Care Physician Name Of Family Doctor: [facility] - Dr. Catalina Todd Primary Care Provider Appointment Comment: [address] [place] [address] [place] [address] Contact Information Discharge Discharge Address: [address] [place] [address] CPT Code CPT Code 25678 (1) Depression Depression Type: major depressive disorder Major depression recurrence: recurrent Active/Remission status: currently active Major depression episode severity: severe Psychotic features: with psychotic features Qualified Code(s): F33.3 - Major depressive disorder, recurrent, severe with psychotic symptoms (2) Cellulitis Site of cellulitis: unspecified site Qualified Code(s): L03.90 - Cellulitis, unspecified (3) DVT (deep venous thrombosis) DVT location: lower extremity (4) Hyperlipidemia Hyperlipidemia type: unspecified Qualified Code(s): E78.5 - Hyperlipidemia, unspecified
[2019-04-14] MEDS: ARIPiprazole 10 MG TAB PO SCH (12:34)
[2019-04-14] MEDS: ENOXAPARIN 150 MG/ML SYR SQ SCH (13:37)
[2019-04-14] MEDS: WARFARIN SOD 10 MG TAB PO SCH (16:01)
[2019-04-14] MEDS: SIMVASTATIN 40 MG TAB PO SCH (21:11)
[2019-04-15 08:18] LABS: INR 2.3 (0.9-1.1); Prothrombin Time 21.8 Seconds (9.0-12.0)
[2019-04-15] MEDS: ARIPiprazole 10 MG TAB PO SCH (08:44)
[2019-04-15] MEDS: LORazepam 1 MG TAB PO SCH (08:48)
[2019-04-15] MEDS: SERTRALINE HCL 100 MG TABLET PO SCH (08:49)
[2019-04-15] MEDS ORDERED: IBUPROFEN 600 MG TAB PO STA (10:35)
--- NOTE | 2019-04-15 14:10 | Psychiatric Progress Note ---
Date of Service April 15, 2019 Impression / Recommendations Surya Howard is a 59-year-old single male with a history of severe psychotic depression and generalized anxiety, as well as long-standing treatment nonadherence which has resulted in multiple involuntary outpatient commitments, who was just discharged from our unit 2 weeks prior to being hospitalized medically for DVT and lower extremity cellulitis in the context of medication nonadherence at home. Since admission, the patient has remained profoundly depressed. He often declines to leave his bed or his bedroom, except to occasionally pace the hallways. He has also steadfastly insisted that he is about to , specifically from complications of diabeteseven though he does not have diabetes. He also has been reluctant to take psychiatric medications and has required a great deal of coaxing. Because he was refusing antidepressant medications and accepting the prescribed antipsychotic medication only about half the time, we ordered medication over objection yesterday and change his antidepressant medication to aripiprazole. He had his first dose of aripiprazole yesterday afternoon, and I met with him about 2 hours later, at which point he reported that he was not feeling "much better," but noted no side effects. Today, the patient, to my eyes, appears to be significantly better. He is animated, speaks spontaneously, his affect is brighter, and although he continues to express delusional believes, including his belief that he is about to , he is at least able to question the validity of the believes and, also, he is much better able to discuss other topics, such as his hobbies and inte rests. Today, I am increasing his dose of aripiprazole to 15 mg a day, and I have obtained his problems that he will take other medications, including sertraline, as prescribed. We discussed possibility of ECT, although his DVT may pose a risk, although is certainly not an absolute contraindication. In any event, the patient is not currently willing to consider ECT, although he acknowledges that it helped a great deal in the past, when he was about 38 years old. An issue for the patient is the fact that he does not want to take more than 1 pill at the time. The pharmacy does not maintain aripiprazole 20 mg tablets on formulary, and the next step in the aripiprazole titration would be to 20 mg, which would mean two 10 mg tabs, which is likely to be a issue for the patient. Hopefully, the patient's Condition will continue to improve and he will be willing to accept the higher "number" of aripiprazole, and will also agree to take sertraline. (1) Depression: 04/05 -continue sertraline 200 mg daily and quetiapine 50 mg at bedtime, which he is intermittently refusing. If he does not become more compliant with oral medications, we will pursue medications over objection, as his psychotic depression is unlikely to remit without medication, and he has responded well to these medications in the past. -Get records from outpatient psychiatrist, and coordinate care with his outpatient therapist and child welfare caseworker. -Brother, Amie, is his power of phonograph cartridge assembler we will enlist his assistance with medical decision making as the patient currently lacks capacity to refuse the recommended treatment. -Encourage patient to be out of bed during the day and participating in groups and therapy. Consider locking his door during group time if he is unable to do this on his own. -He was on an involuntary outpatient commitment, so we will file for a conversion hearing to convert to 304 involuntary treatment. 04/06 -patient has refused sertraline the past 2 days, and although he took quetiapine the first night, he refused it last night. He is refusing all groups, has not bathed, and is refusing to eat and less staff bring food to his room. -We will place him in a medically necessary private room due to severity of mood and psychotic symptoms, and request staff to lock his door during group time him to be more engaged in treatment. -Staff contacted the patient's [id number], who clarified that the patient does not actually have a power of phonograph cartridge assembler, although this has been documented on admission here. She reported the family is frustrated and concerned with the patient's lack of ability to care for his mental and physical needs. The family has been exploring supportive living, specifically [facility]. -Patient's child welfare caseworker, Av Perez, will come in for a meeting tomorrow. 04/07 -improved medication compliance with staff support; continue sertraline 200 mg daily and increase quetiapine to 100 mg at bedtime. -aquatics manager, Av Perez, is coming to meet with patient today. 04/08 - Continue sertraline 200mg and increase quetiapine to 150mg HS. -On 304 commitment. Continue to encourage him to sign YAY[facility] for [facility] 04/09 -pt refused quetiapine last night, having dose tonight be 1/2 of 300mg pill of quetiapine to help lower pill burden and might hold his lipid med tonight as well to help improve likelihood of pt taking his atypical antipsychotic dose that seems to be medication most needed at this time. goal is to titrate up quetiapine. Pharmacy has 50,100,200, and 300mg size pills, (in Xr form there are 150mg size, if switching to xr in future would advise dosing around 8pm. addressed pt delusional thinking and attempted reality testing. 04/10 took seroquel 150mg dose on 04/09 and noticing some improvement today pt might be improving some and might be more open to treatment ceased MNPR at this time 04/11 - Continue sertraline 200mg daily - will titration quetiapine to 200mg daily, can give previous dose of 150mg (1/2 of 300mg tablet) if refuses - Having a rather difficult day today, limited engagement in programming, continues to believe he is dying 04/12 - Continue as above. Pt refused quetiapine last evening, to receive titrated dose of 200mg tonight if compliant - Had a decent morning, though returned to fixation on dying by the afternoon 04/13 -Continue sertraline, has been taking the 200 mg dose for the past 7 days. -Continues to intermittently refuse quetiapine, only taking it on 50% of days in the past week, and received first dose of 200 mg at bedtime last night. He is unwilling to discuss other atypical antipsychotics and remains floridly delusional without insight. He lacks capacity to refuse treatment recommendations for an antipsychotic, as 1 of his delusions is that he has diabetes and is going to at any moment, so believes any treatment is futile. Recommend medications over objection, with a trial of either aripiprazole or paliperidone to target psychotic symptoms, with an IM of olanzapine for refusal of oral medication. If he responds well and tolerates the oral antipsychotic, will then transition him to the long-acting injectable form. We will asked Dr. Delarosa to see him tomorrow for a second opinion. 04/14 - The patient continues to intermittently refuse quetiapine, only taking it on 50% of days in the past week. Today, he tells me that he will refuse quetiapine and all medications, stating, "What's the use? I'm dying." He is unwilling to discuss other antipsychotics and I agree with Dr. Vann's finding that he remains floridly delusional without insight. He lacks capacity to refuse treatment recommendations for an antipsychotic, as one of his delusions is that he has diabetes (he doesn't) and is going to "maybe right now." Within this context he tells me that treatment is futile and he will refuse to take what we are prescribing to him.. I endorse the recommendation for medications over objection. I have ordered aripiprazole 10 mg daily by mouth to treat the patient's psychosis, and I have ordered olanzapine 10 mg IM for refusal of p.o. aripiprazole. Without consistent application of antipsychotic medications at the appropriate dose, it can reasonably be expected that the patient will remain dangerous to himself to the degree that inpatient psychiatric hospitalization will remain medically necessary. 04/15 -Quetiapine was discontinued in favor of aripiprazole, with an order for olanzapine IM over objection if the patient declines aripiprazole. He did, in fact, voluntarily take aripiprazole 10 mg yesterday and this morning, and reports that he did not have any difficulty tolerating it, either yesterday, or this morning. -He has been refusing sertraline. An issue may be that he may not have realized that sertraline and Zoloft are the same medication. Today, he tells me that he has a past history of febrile response to Zoloft. I have explained to him that our finding is that he is suffering from a major depression that has caused him to lose touch with certain aspects of reality and, for that reason, we feel very strongly that he must take an antidepressant medication as part of recovery. The patient tells us that he will now agree to take sertraline (Zoloft) but this remains to be seen. (2) Catatonia: 04/05 -continue Lorazepam 2 mg twice daily and taper over hospital stay. Continue to treat underlying medical conditions as below. 04/06 -decrease Lorazepam to 1 mg twice daily, as he is intermittently refusing doses and it has not been overly helpful. 04/13 -patient has been refusing the at bedtime dose of lorazepam, so will discontinue it. The morning dose can likely be discontinued prior to discharge. 04/14 -The patient is poorly responsive, but not catatonic at this point. (3) Generalized anxiety disorder: 04/05 -continue SSRI and lorazepam as above, offer hydroxyzine as needed for anxiety. Consider resuming buspirone if indicated. 04/14 -The patient's anxious distress at this point seems primarily attributable to his delusional believes that he is moribund. Our plan is to continue to aggressively treat his psychosis and reassess anxious distress once the patient's psychotic features have resolved. 04/15 -The patient appears to be somewhat less anxious today, a circumstance that may be attributable to aripiprazole. Hopefully, the patient will also begin to take sertraline as prescribed. (4) Cellulitis: 04/05 -complete course of Keflex, last dose 04/08/2019. Infection is resolving. (5) DVT (deep venous thrombosis): 04/05 -continue Coumadin 5 mg daily, daily PT/INR, and Lovenox until INR is therapeutic. Coordinate care with Dr. Loyola, who sees him at the anticoagulation clinic. 04/07 -INR is 1.2 today, continue Coumadin and Lovenox. Coordinate with Dr. Loyola 04/11 - Reviewed consultation recommendations - discussed recs with Dr. Loyola via phone - Orders provided for patient to receive 15mg of warfarin today, then a schedule of 10mg daily SuTuThSa, and 5mg daily MWF - Recommended that enoxaparin continue until his INR is therapeutic for two days (two day overlap) - Dr. Loyola to continue to follow 04/14 -Anticoagulation therapy continues. PT and PTT values are as expected. -The patient reports no pain or tenderness in his lower extremities. 04/15 -Consulted telephonically yesterday, telephonically, with hematology. They are following, and agree that the patient's current lab values are in the target range. Several medication adjustments are being planned, and the patient remains asymptomatic. (6) Hyperlipidemia: 04/05 -continue home statin. 04/09 and 04/10 aiming for pt to take med but comfortable with pt refusing this med at current time if helps him obtain his other medications, aim is for improved meed compliance occur as psychiatrically improves, lexy since currently pt pill load a factor in pt compliance Inventory Assets Strengths: Educated, supportive family Needs: Compliance with treatment, increase community supports Risk Factors Assessment Male: Yes : Yes Do You Have Access To A Gun?: No Health Problems: Yes Mental Health Diagnoses: Yes Substance Use Disorders: No Previous Attempt: Yes Family History of Suicide: No Previous Psychiatric Hospitalization: Yes Hopelessness: Yes Smoker: No Protective Factors Assessment Hindu Beliefs: No : No Responsible for Young Children: No Employed: No Stable Relationships: Yes Supportive Family: Yes Good Rapport with Provider: No Interval History Identifying Information YINKA ROMERO is a 59-year-old M who currently lives alone in an [place], has a history of depression with psychosis, generalized anxiety disorder, treatment nonadherence and was on an involuntary outpatient commitment, and was admitted on 04/04/19 16:39 on a 302 involuntary commitment for depression with psychosis, treatment nonadherence, and inability to care for himself. Chief Complaint "I'm going to be soon. Wouldn't be depressed?"" Review of Systems Sleep Information Total Hours of Sleep: 5.75 Sleep Comments: pt on q-15 minute checks Meal Information Percent Meal Consumed - Breakfast: 25 Percent Meal Consumed - Lunch: 50 Percent Meal Consumed - Dinner: 100 Nutrition Comment: documented from the patient meal record Subjective Subjective Patient was seen & assessed and interval progress reviewed with treatment team. I met individually with the patient in order to assess his current mental status, evaluate his response to treatment, coordinate any necessary changes in his treatment regimen, and address questions and concerns that may arise. Unlike yesterday, the patient was willing to follow me to the psychiatrist's office and submit to a full interview without excessive encouragement and prompting. He continues to say that he believes that he has diabetes, but acknowledges that his diabetes may have resolved after he lost weight and because he has been exercising more regularly. This is somewhat different than his fairly consistent assertion that he is about to because of brittle diabetes. The patient also continues to make self depreciating comments, but was able to talk about other things, including interests and hobbies in the community. He smiled appropriately several times and laughed on at least one occasion during the encounter. He was also able to listen assiduously as I explained to him that our finding is that he is suffering from a major depression, which, in his case, has resulted in nihilistic delusions and overwhelming feelings of inadequacy. Somewhat to my surprise, the patient seemed to accept this. He notes that he has been, in fact, severely depressed on various occasions in the past, and he is at least willing to consider that his current feelings of depression are not because he is about to but, instead, is because he is experiencing exacerbation of his recurrent major depressive illness. The patient referred to himself as "stupid" at least 8 times during the encounter today, and we were able to examine feelings of "worthlessness" as 1 of the symptoms of major depression, and the patient was willing to accept this. We also talked about medications and the fact that he has been selectively adherent. Initially, he reported that he sees no reason to take medications because he will "soon be ." However, he also says that he is considering that he may have depression that can be treated. Of particular notices reports that he had ECT approximately 20 years ago and that the ECT was very effective in relieving his depression. He adds, "I did not get depressed again for at least another 15 or 20 years after I had ECT." (ECT would probably not be a current option given his DVT, but can be reconsidered considered following resolution. The patient also says that he is currently not willing to have ECT, but will consider it for the future.) I also told him that I felt strongly that he needs to take his antidepressant medication, namely sertraline. He acknowledges that sertraline ("Zoloft") has helped him in the past, and I made sure that he understood that Zoloft and sertraline of the same medications. Today he voiced an agreement to take sertraline. We are also noticing that he is spending more time out of his room and appears to have tolerated aripiprazole 10 mg by mouth fairly well. He is received 2 dosages of this so far. Physical Exam Psychiatric Orientation: alert and oriented x 3 Apperance: + disheveled Eye Contact: + fair eye contact Motor Behavior: + psychomotor retardation The patient's speech today is spontaneous and fairly voluminous, although delivered Affect: + depressed affect Mood: + depressed mood Thought Process: goal directed thought process Thought Content: + delusions Suicidal Thoughts: denies suicidal thoughts Homicidal Thoughts: denies homicidal thoughts Hallucinations: no auditory hallucinations Cognition: recent memory grossly intact, remote memory grossly intact and language grossly intact; + attention not intact Estimated Intelligence: average estimated intelligence Insight: + poor insight Judgement: + poor judgement Vital Signs (Past 24 Hours) Last Vital Signs Temp 36.7 C 04/15/19 06:42 Pulse 62 04/15/19 06:42 Resp 18 04/15/19 06:42 BP 151/90 H 04/15/19 06:42 Pulse Ox 99 04/09/19 06:00 Results & Data Laboratory Results Laboratory Results - last 24 hr 04/15/19 07:50 PT 21.8 H INR 2.3 H Current Inpatient Medications Current Inpatient Medications: Current Inpatient Medications Acetaminophen (Tylenol) 650 mg PO Q4H PRN PRN Reason: Headache or Minor Fever Stop: 05/04/19 17:30 Last Admin: 04/12/19 11:52 Dose: 650 mg Documented by: Al Hydrox/Mg Hydrox/Simethicone (Maalox) 30 ml PO Q4H PRN PRN Reason: GI Upset Stop: 05/04/19 17:30 Aripiprazole (Abilify) 15 mg PO QAM SETH Stop: 05/16/19 08:59 Hydroxyzine HCl (Vistaril) 50 mg PO HSZ PRN PRN Reason: Insomnia Stop: 05/04/19 17:30 Hydroxyzine HCl (Vistaril) 25 mg PO Q4H PRN PRN Reason: Anxiety Stop: 05/04/19 17:30 Lorazepam (Ativan) 1 mg PO QAM SETH Stop: 05/13/19 08:59 Last Admin: 04/15/19 08:48 Dose: Not Given Documented by: Magnesium Hydroxide (Milk Of Magnesia) 30 ml PO DAILY PRN PRN Reason: Constipation Stop: 05/04/19 17:30 Olanzapine (Zyprexa) 10 mg IM DAILY PRN PRN Reason: REFUSE ABILIFY Stop: 05/14/19 11:44 Quetiapine Fumarate (Seroquel) 200 mg PO HS PRN PRN Reason: Sleep Stop: 05/14/19 11:39 Sertraline HCl (Zoloft) 200 mg PO QAM SETH Stop: 05/05/19 08:59 Last Admin: 04/15/19 08:49 Dose: Not Given Documented by: Simvastatin (Zocor) 40 mg PO HS SETH Stop: 05/04/19 21:59 Last Admin: 04/14/19 21:11 Dose: Not Given Documented by: Sodium Chloride (Bridger Nasal) 1 - 2 sprays NA PRN PRN PRN Reason: Nasal Dryness/Congestion Stop: 05/04/19 17:30 Trazodone HCl (Desyrel) 100 mg PO HS PRN PRN Reason: Sleep Stop: 05/04/19 17:33 Warfarin Sodium (Coumadin) 10 mg PO [id number]@1600 SETH Stop: 05/14/19 15:59 Last Admin: 04/14/19 16:01 Dose: 10 mg Documented by: Warfarin Sodium (Coumadin) 5 mg PO Antoine@1600 SETH Stop: 05/17/19 15:59 Mental Health & Subst Abuse Tx Psychiatrist Name of Psychiatrist: [facility] - Dr. Harrington Psychiatrist's Time of Appointment with Psychiatrist: Dr Todd Psychiatric Appointment Comment: [address] [place] [address] [address], [place] [address] Therapist Name of Therapist: [email or web address] - Juan Menendez [facility] [address] Therapist's Therapy Appointment Comment: [address] [facility] Senior Revenue Accountant Name of Senior Revenue Accountant: [facility] - Av Perez Phone Number for Senior Revenue Accountant: [phone] Case Management Appointment Comment: [address] [facility], [address], [place] Post Discharge Appointments Primary Care Physician Name Of Family Doctor: [facility] - Dr. Catalina Todd Primary Care Provider Appointment Comment: [address] [place] [address] Contact Information Discharge Discharge [address]: [address] [place] [address] CPT Code CPT Code 97861 (1) Depression Depression Type: major depressive disorder Major depression recurrence: recurrent Active/Remission status: currently active Major depression episode severity: severe Psychotic features: with psychotic features Qualified Code(s): F33.3 - Major depressive disorder, recurrent, severe with psychotic symptoms (2) Cellulitis Site of cellulitis: unspecified site Qualified Code(s): L03.90 - Cellulitis, unspecified (3) DVT (deep venous thrombosis) DVT location: lower extremity (4) Hyperlipidemia Hyperlipidemia type: unspecified Qualified Code(s): E78.5 - Hyperlipidemia, unspecified
[2019-04-15] MEDS: WARFARIN SOD 10 MG TAB PO SCH (16:00)
[2019-04-15] MEDS: SIMVASTATIN 40 MG TAB PO SCH (21:09)
[2019-04-16] MEDS ORDERED: ARIPiprazole 15 MG TAB PO SCH (09:00)
[2019-04-16] MEDS: SERTRALINE HCL 100 MG TABLET PO SCH (09:34)
[2019-04-16] MEDS: LORazepam 1 MG TAB PO SCH (09:35)
[2019-04-16 10:23] LABS: Hematocrit (blood only) 45.3 % (42-52); Hemoglobin 15.2 g/dL (14.0-18.0); Mean Corpuscular Hgb Conc 33.6 g/dL (32-36); Mean Corpuscular Volume 86.3 fL (80-100); Platelet Count 309 K/uL (130-400); RDW Coefficient of Variation 14.3 % (11.5-14.5); RDW Standard Deviation 45.1 fL (36.4-46.3); Red Blood Count 5.25 M/uL (4.7-6.1); White Blood Count 7.08 K/uL (4.8-10.8)
[2019-04-16 10:31] LABS: INR 2.8 (0.9-1.1); Prothrombin Time 26.7 Seconds (9.0-12.0)
[2019-04-16 10:52] LABS: Creatinine Clr Calc Pharmacy 88.5 ml/min; Est GFR (African American) 88.4; Est GFR (Non-African American) 76.2
[2019-04-16] MEDS: WARFARIN SOD 10 MG TAB PO SCH (16:02)
--- NOTE | 2019-04-16 16:14 | Psychiatric Progress Note ---
Date of Service April 16, 2019 Impression / Recommendations Surya Howard is a 59-year-old single male with a history of severe psychotic depression and generalized anxiety, as well as long-standing treatment nonadherence which has resulted in multiple involuntary outpatient commitments, who was just discharged from our unit 2 weeks prior to being hospitalized medically for DVT and lower extremity cellulitis in the context of medication nonadherence at home. Since admission, the patient has remained profoundly depressed. He often declines to leave his bed or his bedroom, except to occasionally pace the hallways. He has also steadfastly insisted that he is about to , specifically from complications of diabeteseven though he does not have diabetes. He also has been reluctant to take psychiatric medications and has required a great deal of coaxing. Because he was refusing antidepressant medications and accepting the prescribed antipsychotic medication only about half the time, we ordered medication over objection and changed his antidepressant medication to aripiprazole. (1) Depression: 04/05 -continue sertraline 200 mg daily and quetiapine 50 mg at bedtime, which he is intermittently refusing. If he does not become more compliant with oral medications, we will pursue medications over objection, as his psychotic depression is unlikely to remit without medication, and he has responded well to these medications in the past. -Get records from outpatient psychiatrist, and coordinate care with his outpatient therapist and block and case maker. -Brother, Amie, is his power of prepared foods associate we will enlist his assistance with medical decision making as the patient currently lacks capacity to refuse the recommended treatment. -Encourage patient to be out of bed during the day and participating in groups and therapy. Consider locking his door during group time if he is unable to do this on his own. -He was on an involuntary outpatient commitment, so we will file for a conversion hearing to convert to 304 involuntary treatment. 04/06 -patient has refused sertraline the past 2 days, and although he took quetiapine the first night, he refused it last night. He is refusing all groups, has not bathed, and is refusing to eat and less staff bring food to his room. -We will place him in a medically necessary private room due to severity of mood and psychotic symptoms, and request staff to lock his door during group time him to be more engaged in treatment. -Staff contacted the patient's [id number], who clarified that the patient does not actually have a power of prepared foods associate, although this has been documented on admission here. She reported the family is frustrated and concerned with the patient's lack of ability to care for his mental and physical needs. The family has been exploring [facility]. -Patient's block and case maker, Av Perez, will come in for a meeting tomorrow. 04/07 -improved medication compliance with staff support; continue sertraline 200 mg daily and increase quetiapine to 100 mg at bedtime. -assistant inventory manager, Av Perez, is coming to meet with patient today. 04/08 - Continue sertraline 200mg and increase quetiapine to 150mg HS. -On 304 commitment. Continue to encourage him to sign [facility] for [facility] 04/09 -pt refused quetiapine last night, having dose tonight be 1/2 of 300mg pill of quetiapine to help lower pill burden and might hold his lipid med tonight as well to help improve likelihood of pt taking his atypical antipsychotic dose that seems to be medication most needed at this time. goal is to titrate up quetiapine. Pharmacy has 50,100,200, and 300mg size pills, (in Xr form there are 150mg size, if switching to xr in future would advise dosing around 8pm. addressed pt delusional thinking and attempted reality testing. 04/10 took seroquel 150mg dose on 04/09 and noticing some improvement today pt might be improving some and might be more open to treatment ceased MNPR at this time 04/11 - Continue sertraline 200mg daily - will titration quetiapine to 200mg daily, can give previous dose of 150mg (1/2 of 300mg tablet) if refuses - Having a rather difficult day today, limited engagement in programming, continues to believe he is dying 04/12 - Continue as above. Pt refused quetiapine last evening, to receive titrated dose of 200mg tonight if compliant - Had a decent morning, though returned to fixation on dying by the afternoon 04/13 -Continue sertraline, has been taking the 200 mg dose for the past 7 days. -Continues to intermittently refuse quetiapine, only taking it on 50% of days in the past week, and received first dose of 200 mg at bedtime last night. He is unwilling to discuss other atypical antipsychotics and remains floridly delusional without insight. He lacks capacity to refuse treatment recommendations for an antipsychotic, as 1 of his delusions is that he has diabetes and is going to at any moment, so believes any treatment is futile. Recommend medications over objection, with a trial of either aripiprazole or paliperidone to target psychotic symptoms, with an IM of olanzapine for refusal of oral medication. If he responds well and tolerates the oral antipsychotic, will then transition him to the long-acting injectable form. We will asked Dr. Delarosa to see him tomorrow for a second opinion. 04/14 - The patient continues to intermittently refuse quetiapine, only taking it on 50% of days in the past week. Today, he tells me that he will refuse quetiapine and all medications, stating, "What's the use? I'm dying." He is unwilling to discuss other antipsychotics and I agree with Dr. Vann's finding that he remains floridly delusional without insight. He lacks capacity to refuse treatment recommendations for an antipsychotic, as one of his delusions is that he has diabetes (he doesn't) and is going to "maybe right now." Within this context he tells me that treatment is futile and he will refuse to take what we are prescribing to him.. I endorse the recommendation for medications over objection. I have ordered aripiprazole 10 mg daily by mouth to treat the patient's psychosis, and I have ordered olanzapine 10 mg IM for r efusal of p.o. aripiprazole. Without consistent application of antipsychotic medications at the appropriate dose, it can reasonably be expected that the patient will remain dangerous to himself to the degree that inpatient psychiatric hospitalization will remain medically necessary. 04/15 -Quetiapine was discontinued in favor of aripiprazole, with an order for olanzapine IM over objection if the patient declines aripiprazole. He did, in fact, voluntarily take aripiprazole 10 mg yesterday and this morning, and reports that he did not have any difficulty tolerating it, either yesterday, or this morning. -He has been refusing sertraline. An issue may be that he may not have realized that sertraline and Zoloft are the same medication. Today, he tells me that he has a past history of febrile response to Zoloft. I have explained to him that our finding is that he is suffering from a major depression that has caused him to lose touch with certain aspects of reality and, for that reason, we feel very strongly that he must take an antidepressant medication as part of recovery. The patient tells us that he will now agree to take sertraline (Zoloft) but this remains to be seen. 04/16 -So far he has been compliant with increased dose of Abilify. Appears he would likely benefit from long-acting injectable if he continues to tolerate well (2) Catatonia: 04/05 -continue Lorazepam 2 mg twice daily and taper over hospital stay. Continue to treat underlying medical conditions as below. 04/06 -decrease Lorazepam to 1 mg twice daily, as he is intermittently refusing doses and it has not been overly helpful. 04/13 -patient has been refusing the at bedtime dose of lorazepam, so will discontinue it. The morning dose can likely be discontinued prior to discharge. 04/14 -The patient is poorly responsive, but not catatonic at this point. (3) Generalized anxiety disorder: 04/05 -continue SSRI and lorazepam as above, offer hydroxyzine as needed for anxiety. Consider resuming buspirone if indicated. 04/14 -The patient's anxious distress at this point seems primarily attributable to his delusional believes that he is moribund. Our plan is to continue to aggressively treat his psychosis and reassess anxious distress once the patient's psychotic features have resolved. 04/15 -The patient appears to be somewhat less anxious today, a circumstance that may be attributable to aripiprazole. Hopefully, the patient will also begin to take sertraline as prescribed. (4) Cellulitis: 04/05 -complete course of Keflex, last dose 04/08/2019. Infection is resolving. (5) DVT (deep venous thrombosis): 04/05 -continue Coumadin 5 mg daily, daily PT/INR, and Lovenox until INR is therapeutic. Coordinate care with Dr. Loyola, who sees him at the anticoagulation clinic. 04/07 -INR is 1.2 today, continue Coumadin and Lovenox. Coordinate with Dr. Loyola 04/11 - Reviewed consultation recommendations - discussed recs with Dr. Loyola via phone - Orders provided for patient to receive 15mg of warfarin today, then a schedule of 10mg daily SuTuThSa, and 5mg daily MWF - Recommended that enoxaparin continue until his INR is therapeutic for two days (two day overlap) - Dr. Loyola to continue to follow 04/14 -Anticoagulation therapy continues. PT and PTT values are as expected. -The patient reports no pain or tenderness in his lower extremities. 04/15 -Consulted telephonically yesterday, telephonically, with hematology. They are following, and agree that the patient's current lab values are in the target range. Several medication adjustments are being planned, and the patient remains asymptomatic. 04/16 -PT INR 26.7 and 2.8 respectively today (6) Hyperlipidemia: 04/05 -continue home statin. 04/09 and 04/10 aiming for pt to take med but comfortable with pt refusing this med at current time if helps him obtain his other medications, aim is for improved meed compliance occur as psychiatrically improves, lexy since currently pt pill load a factor in pt compliance Inventory Assets Strengths: Educated, supportive family Needs: Compliance with treatment, increase community supports Risk Factors Assessment Male: Yes : Yes Do You Have Access To A Gun?: No Health Problems: Yes Mental Health Diagnoses: Yes Substance Use Disorders: No Previous Attempt: Yes Family History of Suicide: No Previous Psychiatric Hospitalization: Yes Hopelessness: Yes Smoker: No Protective Factors Assessment Evangelical Beliefs: No : No Responsible for Young Children: No Employed: No Stable Relationships: Yes Supportive Family: Yes Good Rapport with Provider: No Interval History Identifying Information LEE ROMERO is a 59-year-old M who currently lives alone in an [place], has a history of depression with psychosis, generalized anxiety disorder, treatment nonadherence and was on an involuntary outpatient commitment, and was admitted on 04/04/19 16:39 on a 302 involuntary commitment for depression with psychosis, treatment nonadherence, and inability to care for himself. Chief Complaint "Like I said you can forget that Zoloft just take 1 of those muscle pills". Review of Systems Notes Complains of hearing loss, loss of vision, shortness of breath. Denies chest pain Sleep Information Total Hours of Sleep: 5.5 Sleep Comments: pt on q-15 minute checks Meal Information Percent Meal Consumed - Breakfast: 100 Percent Meal Consumed - Lunch: 100 Percent Meal Consumed - Dinner: 75 Nutrition Comment: documented from the patient meal record Subjective Subjective Patient was seen & assessed and interval progress reviewed with treatment team. Lee continues to struggle. Staff describe persistent somatic preoccupation. Believes he is dying, losing his sight, his hearing, and overcome by diabetes. He describes circular conversations. He has agreed to take a few doses of the Abilify now increased to 15 mg yesterday however he remains preoccupied by the number of medications that he takes. He is highly perseverative really focused on some sort of supplement that he purchased online several years ago. He repeats multiple times that the supplement was all natural, caused significant weight loss to the point that he "looked ripped like atlas," and made his mood feel much better than the Zoloft never did. This came up tangentially as he was considering his past when describing his concern about his health problems and diabetes. He continues to believe that he developed diabetes after eating a submarine sandwiches and attributes diabetes to complaints of shortness of breath, vision loss, hearing loss. He is not amenable to discussing additional treatment options this morning. He seems to feel that he is "doomed" and his family will get all of his money when he dies. 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 He tells me he was making many thousands of dollars for only doing 4 x-rays a day at that time and he could have been a multimillionaire. Physical Exam Psychiatric Orientation: alert Apperance: appropriately dressed Eye Contact: + fair eye contact Motor Behavior: steady gait and station and no abnormal motor movements Speech: no pressured speech (However speech is over productive) Affect: + constricted affect Mood: + anxious mood Thought process is obsessive Thought Content: + obsessions (Somatic); + delusional Suicidal Thoughts: denies suicidal thoughts Homicidal Thoughts: denies homicidal thoughts Cognition: + attention not intact Insight: + impaired insight Judgement: + impaired judgement Vital Signs (Past 24 Hours) Last Vital Signs Temp 36.7 C 04/15/19 06:42 Pulse 62 04/15/19 06:42 Resp 18 04/15/19 06:42 BP 151/90 H 04/15/19 06:42 Pulse Ox 99 04/09/19 06:00 Results & Data Laboratory Results Laboratory Results - last 24 hr 04/16/19 04/16/19 04/16/19 10:06 10:06 10:06 WBC 7.08 RBC 5.25 Hgb 15.2 Hct 45.3 MCV 86.3 MCH 29.0 MCHC 33.6 RDW Std Deviation 45.1 RDW Coeff of Christin 14.3 Plt Count 309 MPV 9.0 PT 26.7 H INR 2.8 H Creatinine 1.05 Est Cr Clr Drug Dosing 88.5 Est GFR ( Amer) 88.4 Est GFR (Non-Af Amer) 76.2 Current Inpatient Medications Current Inpatient Medications: Current Inpatient Medications Acetaminophen (Tylenol) 650 mg PO Q4H PRN PRN Reason: Headache or Minor Fever Stop: 05/04/19 17:30 Last Admin: 04/12/19 11:52 Dose: 650 mg Documented by: Al Hydrox/Mg Hydrox/Simethicone (Maalox) 30 ml PO Q4H PRN PRN Reason: GI Upset Stop: 05/04/19 17:30 Aripiprazole (Abilify) 15 mg PO QAM [facility] Stop: 05/16/19 08:59 Last Admin: 04/16/19 09:35 Dose: 15 mg Documented by: Hydroxyzine HCl (Vistaril) 50 mg PO HSZ PRN PRN Reason: Insomnia Stop: 05/04/19 17:30 Hydroxyzine HCl (Vistaril) 25 mg PO Q4H PRN PRN Reason: Anxiety Stop: 05/04/19 17:30 Lorazepam (Ativan) 1 mg PO QAM SETH Stop: 05/13/19 08:59 Last Admin: 04/16/19 09:35 Dose: 1 mg Documented by: Magnesium Hydroxide (Milk Of Magnesia) 30 ml PO DAILY PRN PRN Reason: Constipation Stop: 05/04/19 17:30 Olanzapine (Zyprexa) 10 mg IM DAILY PRN PRN Reason: REFUSE ABILIFY Stop: 05/14/19 11:44 Quetiapine Fumarate (Seroquel) 200 mg PO HS PRN PRN Reason: Sleep Stop: 05/14/19 11:39 Sertraline HCl (Zoloft) 200 mg PO QAM SETH Stop: 05/05/19 08:59 Last Admin: 04/16/19 09:34 Dose: 200 mg Documented by: Simvastatin (Zocor) 40 mg PO HS SETH Stop: 05/04/19 21:59 Last Admin: 04/15/19 21:09 Dose: Not Given Documented by: Sodium Chloride ([place] Nasal) 1 - 2 sprays NA PRN PRN PRN Reason: Nasal Dryness/Congestion Stop: 05/04/19 17:30 Trazodone HCl (Desyrel) 100 mg PO HS PRN PRN Reason: Sleep Stop: 05/04/19 17:33 Warfarin Sodium (Coumadin) 10 mg PO [id number]@1600 SETH Stop: 05/14/19 15:59 Last Admin: 04/15/19 16:00 Dose: 10 mg Documented by: Warfarin Sodium (Coumadin) 5 mg PO Antoine@1600 SETH Stop: 05/17/19 15:59 Mental Health & Subst Abuse Tx Psychiatrist Name of Psychiatrist: [facility] - Dr. Harrington Psychiatrist's Time of Appointment with Psychiatrist: Dr Todd Psychiatric Appointment Comment: [address] [place] [address] [address], [place] [address] Therapist Name of Therapist: [facility] Jaycee Menendez [facility] Therapist's Therapy Appointment Comment: [address] [facility] Regional Director Of Admissions Name of Regional Director Of Admissions: [facility] - Av Perez Phone Number for Regional Director Of Admissions: [phone] Case Management Appointment Comment: [address] [facility], [address] Post Discharge Appointments Primary Care Physician Name Of Family Doctor: [facility] - Dr. Catalina Todd Primary Care Provider Appointment Comment: [address] [place] [address] [place] [address] Contact Information Discharge Discharge [address]: [address] [place] [id number] CPT Code CPT Code 86367 (1) Depression Depression Type: major depressive disorder Major depression recurrence: recurrent Active/Remission status: currently active Major depression episode severity: severe Psychotic features: with psychotic features Qualified Code(s): F33.3 - Major depressive disorder, recurrent, severe with psychotic symptoms (2) Cellulitis Site of cellulitis: unspecified site Qualified Code(s): L03.90 - Cellulitis, unspecified (3) DVT (deep venous thrombosis) DVT location: lower extremity (4) Hyperlipidemia Hyperlipidemia type: unspecified Qualified Code(s): E78.5 - Hyperlipidemia, unspecified
[2019-04-16] MEDS: SIMVASTATIN 40 MG TAB PO SCH (20:57)
[2019-04-17 08:37] LABS: INR 2.9 (0.9-1.1); Prothrombin Time 27.8 Seconds (9.0-12.0)
[2019-04-17] MEDS: SERTRALINE HCL 100 MG TABLET PO SCH (10:44)
[2019-04-17] MEDS: LORazepam 1 MG TAB PO SCH (10:44)
[2019-04-17] MEDS: ARIPiprazole 10 MG TAB PO SCH (10:44)
[2019-04-17] MEDS: WARFARIN SOD 5 MG TAB PO SCH (16:00)
[2019-04-17] MEDS: ACETAMINOPHEN 325 MG TAB PO PRN (16:04)
--- NOTE | 2019-04-17 16:22 | Psychiatric Progress Note ---
Date of Service April 17, 2019 Impression / Recommendations Surya Howard is a 59-year-old single male with a history of severe psychotic depression and generalized anxiety, as well as long-standing treatment nonadherence which has resulted in multiple involuntary outpatient commitments, who was just discharged from our unit 2 weeks prior to being hospitalized medically for DVT and lower extremity cellulitis in the context of medication nonadherence at home. Since admission, the patient has remained profoundly depressed. He often declines to leave his bed or his bedroom, except to occasionally pace the hallways. He has also steadfastly insisted that he is about to , specifically from complications of diabeteseven though he does not have diabetes. He also has been reluctant to take psychiatric medications and has required a great deal of coaxing. Because he was refusing antidepressant medications and accepting the prescribed antipsychotic medication only about half the time, we ordered medication over objection and changed his antidepressant medication to aripiprazole. (1) Depression: 04/05 -continue sertraline 200 mg daily and quetiapine 50 mg at bedtime, which he is intermittently refusing. If he does not become more compliant with oral medications, we will pursue medications over objection, as his psychotic depression is unlikely to remit without medication, and he has responded well to these medications in the past. -Get records from outpatient psychiatrist, and coordinate care with his outpatient therapist and mental health case manager. -Brother, Amie, is his power of core winder machine operator we will enlist his assistance with medical decision making as the patient currently lacks capacity to refuse the recommended treatment. -Encourage patient to be out of bed during the day and participating in groups and therapy. Consider locking his door during group time if he is unable to do this on his own. -He was on an involuntary outpatient commitment, so we will file for a conversion hearing to convert to 304 involuntary treatment. 04/06 -patient has refused sertraline the past 2 days, and although he took quetiapine the first night, he refused it last night. He is refusing all groups, has not bathed, and is refusing to eat and less staff bring food to his room. -We will place him in a medically necessary private room due to severity of mood and psychotic symptoms, and request staff to lock his door during group time him to be more engaged in treatment. -Staff contacted the patient's [id number], who clarified that the patient does not actually have a power of core winder machine operator, although this has been documented on admission here. She reported the family is frustrated and concerned with the patient's lack of ability to care for his mental and physical needs. The family has been exploring supportive living, specifically [facility]. -Patient's mental health case manager, Av Perez, will come in for a meeting tomorrow. 04/07 -improved medication compliance with staff support; continue sertraline 200 mg daily and increase quetiapine to 100 mg at bedtime. -manager commodities, Av Perez, is coming to meet with patient today. 04/08 - Continue sertraline 200mg and increase quetiapine to 150mg HS. -On 304 commitment. Continue to encourage him to sign YAYA for [facility] 04/09 -pt refused quetiapine last night, having dose tonight be 1/2 of 300mg pill of quetiapine to help lower pill burden and might hold his lipid med tonight as well to help improve likelihood of pt taking his atypical antipsychotic dose that seems to be medication most needed at this time. goal is to titrate up quetiapine. Pharmacy has 50,100,200, and 300mg size pills, (in Xr form there are 150mg size, if switching to xr in future would advise dosing around 8pm. addressed pt delusional thinking and attempted reality testing. 04/10 took seroquel 150mg dose on 04/09 and noticing some improvement today pt might be improving some and might be more open to treatment ceased MNPR at this time 04/11 - Continue sertraline 200mg daily - will titration quetiapine to 200mg daily, can give previous dose of 150mg (1/2 of 300mg tablet) if refuses - Having a rather difficult day today, limited engagement in programming, continues to believe he is dying 04/12 - Continue as above. Pt refused quetiapine last evening, to receive titrated dose of 200mg tonight if compliant - Had a decent morning, though returned to fixation on dying by the afternoon 04/13 -Continue sertraline, has been taking the 200 mg dose for the past 7 days. -Continues to intermittently refuse quetiapine, only taking it on 50% of days in the past week, and received first dose of 200 mg at bedtime last night. He is unwilling to discuss other atypical antipsychotics and remains floridly delusional without insight. He lacks capacity to refuse treatment recommendations for an antipsychotic, as 1 of his delusions is that he has diabetes and is going to at any moment, so believes any treatment is futile. Recommend medications over objection, with a trial of either aripiprazole or paliperidone to target psychotic symptoms, with an IM of olanzapine for refusal of oral medication. If he responds well and tolerates the oral antipsychotic, will then transition him to the long-acting injectable form. We will asked Dr. Delarosa to see him tomorrow for a second opinion. 04/14 - The patient continues to intermittently refuse quetiapine, only taking it on 50% of days in the past week. Today, he tells me that he will refuse quetiapine and all medications, stating, "What's the use? I'm dying." He is unwilling to discuss other antipsychotics and I agree with Dr. Vann's finding that he remains floridly delusional without insight. He lacks capacity to refuse treatment recommendations for an antipsychotic, as one of his delusions is that he has diabetes (he doesn't) and is going to "maybe right now." Within this context he tells me that treatment is futile and he will refuse to take what we are prescribing to him.. I endorse the recommendation for medications over objection. I have ordered aripiprazole 10 mg daily by mouth to treat the patient's psychosis, and I have ordered olanzapine 10 mg IM for r efusal of p.o. aripiprazole. Without consistent application of antipsychotic medications at the appropriate dose, it can reasonably be expected that the patient will remain dangerous to himself to the degree that inpatient psychiatric hospitalization will remain medically necessary. 04/15 -Quetiapine was discontinued in favor of aripiprazole, with an order for olanzapine IM over objection if the patient declines aripiprazole. He did, in fact, voluntarily take aripiprazole 10 mg yesterday and this morning, and reports that he did not have any difficulty tolerating it, either yesterday, or this morning. -He has been refusing sertraline. An issue may be that he may not have realized that sertraline and Zoloft are the same medication. Today, he tells me that he has a past history of febrile response to Zoloft. I have explained to him that our finding is that he is suffering from a major depression that has caused him to lose touch with certain aspects of reality and, for that reason, we feel very strongly that he must take an antidepressant medication as part of recovery. The patient tells us that he will now agree to take sertraline (Zoloft) but this remains to be seen. 04/16 -So far he has been compliant with increased dose of Abilify. Appears he would likely benefit from long-acting injectable if he continues to tolerate well 04/17 -Appears more depressive today. -Remains delusionally preoccupied -Increase Abilify to 20 mg daily. Has been compliant (2) Catatonia: 04/05 -continue Lorazepam 2 mg twice daily and taper over hospital stay. Continue to treat underlying medical conditions as below. 04/06 -decrease Lorazepam to 1 mg twice daily, as he is intermittently refusing doses and it has not been overly helpful. 04/13 -patient has been refusing the at bedtime dose of lorazepam, so will discontinue it. The morning dose can likely be discontinued prior to discharge. 04/14 -The patient is poorly responsive, but not catatonic at this point. (3) Generalized anxiety disorder: 04/05 -continue SSRI and lorazepam as above, offer hydroxyzine as needed for anxiety. Consider resuming buspirone if indicated. 04/14 -The patient's anxious distress at this point seems primarily attributable to his delusional believes that he is moribund. Our plan is to continue to aggress ively treat his psychosis and reassess anxious distress once the patient's psychotic features have resolved. 04/15 -The patient appears to be somewhat less anxious today, a circumstance that may be attributable to aripiprazole. Hopefully, the patient will also begin to take sertraline as prescribed. (4) Cellulitis: 04/05 -complete course of Keflex, last dose 04/08/2019. Infection is resolving. (5) DVT (deep venous thrombosis): 04/05 -continue Coumadin 5 mg daily, daily PT/INR, and Lovenox until INR is therapeutic. Coordinate care with Dr. Loyola, who sees him at the anticoagulation clinic. 04/07 -INR is 1.2 today, continue Coumadin and Lovenox. Coordinate with Dr. Loyola 04/11 - Reviewed consultation recommendations - discussed recs with Dr. Looyla via phone - Orders provided for patient to receive 15mg of warfarin today, then a schedule of 10mg daily SuTuThSa, and 5mg daily MWF - Recommended that enoxaparin continue until his INR is therapeutic for two days (two day overlap) - Dr. Loyola to continue to follow 04/14 -Anticoagulation therapy continues. PT and PTT values are as expected. -The patient reports no pain or tenderness in his lower extremities. 04/15 -Consulted telephonically yesterday, telephonically, with hematology. They are following, and agree that the patient's current lab values are in the target range. Several medication adjustments are being planned, and the patient remains asymptomatic. 04/16 -PT INR 26.7 and 2.8 respectively today 04/17 -INR 2.9 today (6) Hyperlipidemia: 04/05 -continue home statin. 04/09 and 04/10 aiming for pt to take med but comfortable with pt refusing this med at current time if helps him obtain his other medications, aim is for improved meed compliance occur as psychiatrically improves, lexy since currently pt pill load a factor in pt compliance Inventory Assets Strengths: Educated, supportive family Needs: Compliance with treatment, increase community supports Risk Factors Assessment Male: Yes : Yes Do You Have Access To A Gun?: No Health Problems: Yes Mental Health Diagnoses: Yes Substance Use Disorders: No Previous Attempt: Yes Family History of Suicide: No Previous Psychiatric Hospitalization: Yes Hopelessness: Yes Smoker: No Protective Factors Assessment Episcopal Beliefs: No : No Responsible for Young Children: No Employed: No Stable Relationships: Yes Supportive Family: Yes Good Rapport with Provider: No Interval History Identifying Information YINKA ROMERO is a 59-year-old M who currently lives alone in an [place], has a history of depression with psychosis, generalized anxiety disorder, treatment nonadherence and was on an involuntary outpatient commitment, and was admitted on 04/04/19 16:39 on a 302 involuntary commitment for depression with psychosis, treatment nonadherence, and inability to care for himself. Chief Complaint "I'm not going to be here much longer". Review of Systems Sleep Information Total Hours of Sleep: 9.5 Sleep Comments: pt appeared to sleep 2.5 hrs during evening shift. pt on q-15 minute checks Meal Information Percent Meal Consumed - Breakfast: 100 Percent Meal Consumed - Lunch: 100 Percent Meal Consumed - Dinner: 100 Nutrition Comment: documented from the patient meal record Subjective Subjective Patient was seen & assessed and interval progress reviewed with treatment team. Little change in last 24 hours reported by staff. He was quite perseverative and spoke for more than an hour about the miracle pill that he had described at time of clinical interview yesterday. Staff described him as more withdrawn on 3-11 shift last evening. He was compliant with his medications. Today he looks glum and tells me that he is worried that he will not be here much longer (meaning that he will from his diabetes). He declines A1c. "What's the point?" Physical Exam Psychiatric Orientation: alert Apperance: + disheveled Eye Contact: + fair eye contact Motor Behavior: steady gait and station speech is softer Affect: + constricted affect Mood: + depressed mood Thought Process: + perseveration Thought Content: + obsessions; + delusional Suicidal Thoughts: denies suicidal intent Hallucinations: no auditory hallucinations Cognition: + attention not intact Insight: + impaired insight Judgement: + impaired judgement Vital Signs (Past 24 Hours) Last Vital Signs Temp 36.7 C 04/15/19 06:42 Pulse 62 04/15/19 06:42 Resp 18 04/15/19 06:42 BP 151/90 H 04/15/19 06:42 Pulse Ox 99 04/09/19 06:00 Results & Data Laboratory Results Laboratory Results - last 24 hr 04/17/19 08:17 PT 27.8 H INR 2.9 H Current Inpatient Medications Current Inpatient Medications: Current Inpatient Medications Acetaminophen (Tylenol) 650 mg PO Q4H PRN PRN Reason: Headache or Minor Fever Stop: 05/04/19 17:30 Last Admin: 04/17/19 16:04 Dose: 650 mg Documented by: Al Hydrox/Mg Hydrox/Simethicone (Maalox) 30 ml PO Q4H PRN PRN Reason: GI Upset Stop: 05/04/19 17:30 Aripiprazole (Abilify) 20 mg PO QAM SETH Stop: 05/17/19 10:29 Last Admin: 04/17/19 10:44 Dose: 20 mg Documented by: Hydroxyzine HCl (Vistaril) 50 mg PO HSZ PRN PRN Reason: Insomnia Stop: 05/04/19 17:30 Hydroxyzine HCl (Vistaril) 25 mg PO Q4H PRN PRN Reason: Anxiety Stop: 05/04/19 17:30 Lorazepam (Ativan) 1 mg PO QAM SETH Stop: 05/13/19 08:59 Last Admin: 04/17/19 10:44 Dose: 1 mg Documented by: Magnesium Hydroxide (Milk Of Magnesia) 30 ml PO DAILY PRN PRN Reason: Constipation Stop: 05/04/19 17:30 Olanzapine (Zyprexa) 10 mg IM DAILY PRN PRN Reason: REFUSE ABILIFY Stop: 05/14/19 11:44 Quetiapine Fumarate (Seroquel) 200 mg PO HS PRN PRN Reason: Sleep Stop: 05/14/19 11:39 Sertraline HCl (Zoloft) 200 mg PO QAM SETH Stop: 05/05/19 08:59 Last Admin: 04/17/19 10:44 Dose: 200 mg Documented by: Simvastatin (Zocor) 40 mg PO HS SETH Stop: 05/04/19 21:59 Last Admin: 04/16/19 20:57 Dose: Not Given Documented by: Sodium Chloride ([place] Nasal) 1 - 2 sprays NA PRN PRN PRN Reason: Nasal Dryness/Congestion Stop: 05/04/19 17:30 Trazodone HCl (Desyrel) 100 mg PO HS PRN PRN Reason: Sleep Stop: 05/04/19 17:33 Warfarin Sodium (Coumadin) 10 mg PO [id number]@1600 SETH Stop: 05/14/19 15:59 Last Admin: 04/16/19 16:02 Dose: 10 mg Documented by: Warfarin Sodium (Coumadin) 5 mg PO Antoine@1600 SETH Stop: 05/17/19 15:59 Last Admin: 04/17/19 16:00 Dose: 5 mg Documented by: Mental Health & Subst Abuse Tx Psychiatrist Name of Psychiatrist: [facility] - Dr. Harrington Psychiatrist's Time of Appointment with Psychiatrist: Dr Todd Psychiatric Appointment Comment: [id number], [place] [address] Therapist Name of Therapist: [facility] [place] - Juan Menendez [facility] Therapist's Therapy Appointment Comment: [address], [place] Tube Tester Name of Tube Tester: [facility] - Av Perez Phone Number for Tube Tester: [phone] Case Management Appointment Comment: [address] [facility], [address], [place] Post Discharge Appointments Primary Care Physician Name Of Family Doctor: [facility] - Dr. Catalina Todd Primary Care Provider Appointment Comment: [address] [place] [address] [place] [address] Contact Information Discharge Discharge Address: [address] [place] [id number] CPT Code CPT Code 19099 (1) Depression Depression Type: major depressive disorder Major depression recurrence: recurrent Active/Remission status: currently active Major depression episode severity: severe Psychotic features: with psychotic features Qualified Code(s): F33.3 - Major depressive disorder, recurrent, severe with psychotic symptoms (2) Cellulitis Site of cellulitis: unspecified site Qualified Code(s): L03.90 - Cellulitis, unspecified (3) DVT (deep venous thrombosis) DVT location: lower extremity (4) Hyperlipidemia Hyperlipidemia type: unspecified Qualified Code(s): E78.5 - Hyperlipidemia, unspecified
[2019-04-17] MEDS: SIMVASTATIN 40 MG TAB PO SCH (21:11)
[2019-04-18 08:41] LABS: INR 2.6 (0.9-1.1); Prothrombin Time 25.2 Seconds (9.0-12.0)
[2019-04-18] MEDS: LORazepam 1 MG TAB PO SCH (09:05)
[2019-04-18] MEDS: SERTRALINE HCL 100 MG TABLET PO SCH (09:05)
[2019-04-18] MEDS: ARIPiprazole 10 MG TAB PO SCH (09:05)
--- NOTE | 2019-04-18 11:59 | Psychiatric Progress Note ---
Date of Service April 18, 2019 Impression / Recommendations Surya Howard is a 59-year-old single male with a history of severe psychotic depression and generalized anxiety, as well as long-standing treatment nonadherence which has resulted in multiple involuntary outpatient commitments, who was just discharged from our unit 2 weeks prior to being hospitalized medically for DVT and lower extremity cellulitis in the context of medication nonadherence at home. Since admission, the patient has remained profoundly depressed. He often declines to leave his bed or his bedroom, except to occasionally pace the hallways. He has also steadfastly insisted that he is about to , specifically from complications of diabeteseven though he does not have diabetes. He also has been reluctant to take psychiatric medications, often refuses them, and has required a great deal of coaxing. Because he was refusing antidepressant medications and accepting the prescribed antipsychotic medication only about half the time, we ordered medication over objection and changed his antidepressant medication to aripiprazole. (1) Depression: 04/05 -continue sertraline 200 mg daily and quetiapine 50 mg at bedtime, which he is intermittently refusing. If he does not become more compliant with oral medications, we will pursue medications over objection, as his psychotic depression is unlikely to remit without medication, and he has responded well to these medications in the past. -Get records from outpatient psychiatrist, and coordinate care with his outpatient therapist and case management coordinator. -Brother, Amie, is his power of claim attorney we will enlist his assistance with medical decision making as the patient currently lacks capacity to refuse the recommended treatment. -Encourage patient to be out of bed during the day and participating in groups and therapy. Consider locking his door during group time if he is unable to do this on his own. -He was on an involuntary outpatient commitment, so we will file for a conversion hearing to convert to 304 involuntary treatment. 04/06 -patient has refused sertraline the past 2 days, and although he took quetiapine the first night, he refused it last night. He is refusing all groups, has not bathed, and is refusing to eat and less staff bring food to his room. -We will place him in a medically necessary private room due to severity of mood and psychotic symptoms, and request staff to lock his door during group time him to be more engaged in treatment. -Staff contacted the patient's [id number], who clarified that the patient does not actually have a power of claim attorney, although this has been documented on admission here. She reported the family is frustrated and concerned with the patient's lack of ability to care for his mental and physical needs. The family has been exploring supportive living, specifically [facility]. -Patient's case management coordinator, Av Perez, will come in for a meeting tomorrow. 04/07 -improved medication compliance with staff support; continue sertraline 200 mg daily and increase quetiapine to 100 mg at bedtime. -residential real estate sales manager, Av Perez, is coming to meet with patient today. 04/08 - Continue sertraline 200mg and increase quetiapine to 150mg HS. -On 304 commitment. Continue to encourage him to sign YAYA for [facility] 04/09 -pt refused quetiapine last night, having dose tonight be 1/2 of 300mg pill of quetiapine to help lower pill burden and might hold his lipid med tonight as well to help improve likelihood of pt taking his atypical antipsychotic dose that seems to be medication most needed at this time. goal is to titrate up quetiapine. Pharmacy has 50,100,200, and 300mg size pills, (in Xr form there are 150mg size, if switching to xr in future would advise dosing around 8pm. addressed pt delusional thinking and attempted reality testing. 04/10 took seroquel 150mg dose on 04/09 and noticing some improvement today pt might be improving some and might be more open to treatment ceased MNPR at this time 04/11 - Continue sertraline 200mg daily - will titration quetiapine to 200mg daily, can give previous dose of 150mg (1/2 of 300mg tablet) if refuses - Having a rather difficult day today, limited engagement in programming, continues to believe he is dying 04/12 - Continue as above. Pt refused quetiapine last evening, to receive titrated dose of 200mg tonight if compliant - Had a decent morning, though returned to fixation on dying by the afternoon 04/13 -Continue sertraline, has been taking the 200 mg dose for the past 7 days. -Continues to intermittently refuse quetiapine, only taking it on 50% of days in the past week, and received first dose of 200 mg at bedtime last night. He is unwilling to discuss other atypical antipsychotics and remains floridly delusional without insight. He lacks capacity to refuse treatment recommendations for an antipsychotic, as 1 of his delusions is that he has diabetes and is going to at any moment, so believes any treatment is futile. Recommend medications over objection, with a trial of either aripiprazole or paliperidone to target psychotic symptoms, with an IM of olanzapine for refusal of oral medication. If he responds well and tolerates the oral antipsychotic, will then transition him to the long-acting injectable form. We will asked Dr. Delarosa to see him tomorrow for a second opinion. 04/14 - The patient continues to intermittently refuse quetiapine, only taking it on 50% of days in the past week. Today, he tells me that he will refuse quetiapine and all medications, stating, "What's the use? I'm dying." He is unwilling to discuss other antipsychotics and I agree with Dr. Vann's finding that he remains floridly delusional without insight. He lacks capacity to refuse treatment recommendations for an antipsychotic, as one of his delusions is that he has diabetes (he doesn't) and is going to "maybe right now." Within this context he tells me that treatment is futile and he will refuse to take what we are prescribing to him.. I endorse the recommendation for medications over objection. I have ordered aripiprazole 10 mg daily by mouth to treat the patient's psychosis, and I have ordered olanzapine 10 mg IM for refusal of p.o. aripiprazole. Without consistent application of antipsychotic medications at the appropriate dose, it can reasonably be expected that the patient will remain dangerous to himself to the degree that inpatient psychiatric hospitalization will remain medically necessary. 04/15 -Quetiapine was discontinued in favor of aripiprazole, with an order for olanzapine IM over objection if the patient declines aripiprazole. He did, in fact, voluntarily take aripiprazole 10 mg yesterday and this morning, and reports that he did not have any difficulty tolerating it, either yesterday, or this morning. -He has been refusing sertraline. An issue may be that he may not have realized that sertraline and Zoloft are the same medication. Today, he tells me that he has a past history of febrile response to Zoloft. I have explained to him that our finding is that he is suffering from a major depression that has caused him to lose touch with certain aspects of reality and, for that reason, we feel very strongly that he must take an antidepressant medication as part of recovery. The patient tells us that he will now agree to take sertraline (Zoloft) but this remains to be seen. 04/16 -So far he has been compliant with increased dose of Abilify. Appears he would likely benefit from long-acting injectable if he continues to tolerate well 04/17 -Appears more depressive today. -Remains delusionally preoccupied -Increase Abilify to 20 mg daily. Has been compliant 04/18 -Continue aripiprazole and sertraline, and discontinue lorazepam. Encourage patient to be out of bed and participating in treatment. (2) Catatonia: 04/05 -continue Lorazepam 2 mg twice daily and taper over hospital stay. Continue to treat underlying medical conditions as below. 04/06 -decrease Lorazepam to 1 mg twice daily, as he is intermittently refusing doses and it has not been overly helpful. 04/13 -patient has been refusing the at bedtime dose of lorazepam, so will discontinue it. The morning dose can likely be discontinued prior to discharge. 04/14 -The patient is poorly responsive, but not catatonic at this point. 04/18 -discontinue lorazepam, as patient retreating to his bed and want to minimize sedating effects. (3) Generalized anxiety disorder: 04/05 -continue SSRI and lorazepam as above, offer hydroxyzine as needed for anxiety. Consider resuming buspirone if indicated. 04/14 -The patient's anxious distress at this point seems primarily attributable to his delusional believes that he is moribund. Our plan is to continue to aggressively treat his psychosis and reassess anxious distress once the patient's psychotic features have resolved. 04/15 -The patient appears to be somewhat less anxious today, a circumstance that may be attributable to aripiprazole. Hopefully, the patient will also begin to take sertraline as prescribed. (4) Cellulitis: 04/05 -complete course of Keflex, last dose 04/08/2019. Infection is resolving. (5) DVT (deep venous thrombosis): 04/05 -continue Coumadin 5 mg daily, daily PT/INR, and Lovenox until INR is therapeutic. Coordinate care with Dr. Loyola, who sees him at the anticoagulation clinic. 04/07 -INR is 1.2 today, continue Coumadin and Lovenox. Coordinate with Dr. Loyola 04/11 - Reviewed consultation recommendations - discussed recs with Dr. Loyola via phone - Orders provided for patient to receive 15mg of warfarin today, then a omar edule of 10mg daily SuTuThSa, and 5mg daily MWF - Recommended that enoxaparin continue until his INR is therapeutic for two days (two day overlap) - Dr. Loyola to continue to follow 04/14 -Anticoagulation therapy continues. PT and PTT values are as expected. -The patient reports no pain or tenderness in his lower extremities. 04/15 -Consulted telephonically yesterday, telephonically, with hematology. They are following, and agree that the patient's current lab values are in the target range. Several medication adjustments are being planned, and the patient remains asymptomatic. 04/16 -PT INR 26.7 and 2.8 respectively today 04/17 -INR 2.9 today (6) Hyperlipidemia: 04/05 -continue home statin. 04/09 and 04/10 aiming for pt to take med but comfortable with pt refusing this med at current time if helps him obtain his other medications, aim is for improved meed compliance occur as psychiatrically improves, lexy since currently pt pill load a factor in pt compliance Inventory Assets Strengths: Educated, supportive family Needs: Compliance with treatment, increase community supports Risk Factors Assessment Male: Yes : Yes Do You Have Access To A Gun?: No Health Problems: Yes Mental Health Diagnoses: Yes Substance Use Disorders: No Previous Attempt: Yes Family History of Suicide: No Previous Psychiatric Hospitalization: Yes Hopelessness: Yes Smoker: No Protective Factors Assessment Hoahaoism Beliefs: No : No Responsible for Young Children: No Employed: No Stable Relationships: Yes Supportive Family: Yes Good Rapport with Provider: No Interval History Identifying Information YINKA ROMERO is a 59-year-old M who currently lives alone in an [place], has a history of depression with psychosis, generalized anxiety disorder, treatment nonadherence and was on an involuntary outpatient commitment, and was admitted on 04/04/19 16:39 on a 302 involuntary commitment for depression with psychosis, treatment nonadherence, and inability to care for himself. He is on a 304 commitment as of 04/08/19. Chief Complaint "Getting worse". Review of Systems Notes headache, "my heart's beating one beat a minute." Sleep Information Total Hours of Sleep: 8.5 Sleep Comments: pt appeared to sleep 1.5 hrs during evening shift. pt on q-15 minute checks Meal Information Percent Meal Consumed - Breakfast: 100 Percent Meal Consumed - Lunch: 100 Percent Meal Consumed - Dinner: 100 Nutrition Comment: documented from the patient meal record Subjective Subjective Patient was seen & assessed and interval progress reviewed with treatment team. He reports he is "getting worse," and that he will at any moment, "probably a stroke or something." He reports sleep is "ok, I just lay down and figure if I don't wake up, I don't wake up." Appetite is good, "that's the only thing I have, might as well eat before I ." He is only going to groups "once in a while, don't feel good enough, ready to fall over onto the ground." He says his brother called once "just to see where my money is so they can get it." He says he has hundreds of thousands of dollars and "they're gonna end up getting it and living high on the hog." He doesn't think medications are helping, "won't help with my diabetes." He endorses wishes, saying he doesn't want to live this way and "I don't have to do anything about it, going to be soon." He continues to endorse distress over things that happened 20 years ago, saying he should never have been depressed, "no reason to be, could've had it all." He continues to insist that he has diabetes. Physical Exam Psychiatric Orientation: alert and cooperative Apperance: appropriately dressed, + disheveled and appeared stated age Eye Contact: + poor eye contact Motor Behavior: steady gait and station and no abnormal motor movements minimal, irritated tone at times Affect: + depressed affect, + irritable affect, + constricted affect and mood congruent with affect "terrible" Thought Process: goal directed thought process Thought Content: + delusions Suicidal Thoughts: + reports suicidal thoughts Homicidal Thoughts: denies homicidal thoughts Hallucinations: no auditory hallucinations and no visual hallucinations Cognition: attention grossly intact and language grossly intact Insight: + impaired insight Judgement: + impaired judgement Vital Signs (Past 24 Hours) Last Vital Signs Temp 36.7 C 04/15/19 06:42 Pulse 62 04/15/19 06:42 Resp 18 04/15/19 06:42 BP 151/90 H 04/15/19 06:42 Pulse Ox 99 04/09/19 06:00 Results & Data Laboratory Results Laboratory Results - last 24 hr 04/18/19 08:15 PT 25.2 H INR 2.6 H Current Inpatient Medications Current Inpatient Medications: Current Inpatient Medications Acetaminophen (Tylenol) 650 mg PO Q4H PRN PRN Reason: Headache or Minor Fever Stop: 05/04/19 17:30 Last Admin: 04/17/19 16:04 Dose: 650 mg Documented by: Al Hydrox/Mg Hydrox/Simethicone (Maalox) 30 ml PO Q4H PRN PRN Reason: GI Upset Stop: 05/04/19 17:30 A[facility]ipraz[facility] ([facility]ilify) [facility] Stop: 05/17/19 10:29 Last Admin: 04/18/19 09:05 Dose: 20 mg Documented by: Hydroxyzine HCl (Vistaril) 50 mg PO HSZ PRN PRN Reason: Insomnia Stop: 05/04/19 17:30 Hydroxyzine HCl (Vistaril) 25 mg PO Q4H PRN PRN Reason: Anxiety Stop: 05/04/19 17:30 Lorazepam (Ativan) [facility] Stop: 05/13/19 08:59 Last Admin: 04/18/19 09:05 Dose: 1 mg Documented by: Magnesium Hydroxide (Milk Of Magnesia) 30 ml PO DAILY PRN PRN Reason: Constipation Stop: 05/04/19 17:30 Olanzapine (Zyprexa) 10 mg IM DAILY PRN PRN Reason: REFUSE ABILIFY Stop: 05/14/19 11:44 Quetiapine Fumarate (Seroquel) 200 mg PO HS PRN PRN Reason: Sleep Stop: 05/14/19 11:39 Sertraline HCl (Zoloft) [facility] Stop: 05/05/19 08:59 Last Admin: 04/18/19 09:05 Dose: 200 mg Documented by: Simvastatin (Zocor) 40 mg PO HS OMAR Stop: 05/04/19 21:59 Last Admin: 04/17/19 21:11 Dose: 40 mg Documented by: Sodium Chloride ([place] Nasal) 1 - 2 sprays NA PRN PRN PRN Reason: Nasal Dryness/Congestion Stop: 05/04/19 17:30 Trazodone HCl (Desyrel) 100 mg PO HS PRN PRN Reason: Sleep Stop: 05/04/19 17:33 Warfarin Sodium (Coumadin) 10 mg PO [id number]@1600 OMAR Stop: 05/14/19 15:59 Last Admin: 04/16/19 16:02 Dose: 10 mg Documented by: Warfarin Sodium (Coumadin) 5 mg PO Antoine@1600 OMAR Stop: 05/17/19 15:59 Last Admin: 04/17/19 16:00 Dose: 5 mg Documented by: Mental Health & Subst Abuse Tx Psychiatrist Name of Psychiatrist: [facility] - Dr. Harrington Psychiatrist's Time of Appointment with Psychiatrist: Dr Todd Psychiatric Appointment Comment: [address] [place] [address] [address], [place] [address] Therapist Name of Therapist: [facility] - Juan Menendez [facility] Therapist's Therapy Appointment Comment: [address] [facility] Integrated Marketing Intern Name of Integrated Marketing Intern: [facility] - Av Perez Phone Number for Integrated Marketing Intern: [phone] Case Management Appointment Comment: [address] [place], [address], [place] Post Discharge Appointments Primary Care Physician Name Of Family Doctor: [facility] - Dr. Catalina Todd Primary Care Provider Appointment Comment: [address] [place] [address] [place] [address] Contact Information Discharge Discharge [address]: [address] [place] [address] CPT Code CPT Code 48157 (1) Depression Depression Type: major depressive disorder Major depression recurrence: recurrent Active/Remission status: currently active Major depression episode severity: severe Psychotic features: with psychotic features Qualified Code(s): F33.3 - Major depressive disorder, recurrent, severe with psychotic symptoms (2) Cellulitis Site of cellulitis: unspecified site Qualified Code(s): L03.90 - Cellulitis, unspecified (3) DVT (deep venous thrombosis) DVT location: lower extremity (4) Hyperlipidemia Hyperlipidemia type: unspecified Qualified Code(s): E78.5 - Hyperlipidemia, unspecified
[2019-04-18] MEDS: WARFARIN SOD 10 MG TAB PO SCH (16:08)
[2019-04-18] MEDS: ACETAMINOPHEN 325 MG TAB PO PRN ×2 (17:36→21:55)
[2019-04-18] MEDS: SIMVASTATIN 40 MG TAB PO SCH (21:54)
[2019-04-19] MEDS: ACETAMINOPHEN 325 MG TAB PO PRN ×4 (01:47→20:33)
[2019-04-19 08:19] LABS: INR 2.8 (0.9-1.1); Prothrombin Time 26.3 Seconds (9.0-12.0)
[2019-04-19] MEDS: ARIPiprazole 10 MG TAB PO SCH (08:28)
[2019-04-19] MEDS: SERTRALINE HCL 100 MG TABLET PO SCH (08:29)
[2019-04-19 08:31] LABS: Creatinine Clr Calc Pharmacy 98.9 ml/min; Est GFR (Non-African American) 87.2
--- NOTE | 2019-04-19 11:27 | Psychiatric Progress Note ---
Date of Service April 19, 2019 Impression / Recommendations Surya Howard is a 59-year-old single male with a history of severe psychotic depression and generalized anxiety, as well as long-standing treatment nonadherence which has resulted in multiple involuntary outpatient commitments, who was just discharged from our unit 2 weeks prior to being hospitalized medically for DVT and lower extremity cellulitis in the context of medication nonadherence at home. Since admission, the patient has remained profoundly depressed. He often declines to leave his bed or his bedroom, except to occasionally pace the hallways. He has also steadfastly insisted that he is about to , spe cifically from complications of diabeteseven though he does not have diabetes. He also has been reluctant to take psychiatric medications, often refuses them, and has required a great deal of coaxing. Because he was refusing antidepressant medications and accepting the prescribed antipsychotic medication only about half the time, we ordered medication over objection and changed his antidepressant medication to aripiprazole. (1) Depression: 04/05 -continue sertraline 200 mg daily and quetiapine 50 mg at bedtime, which he is intermittently refusing. If he does not become more compliant with oral medications, we will pursue medications over objection, as his psychotic depression is unlikely to remit without medication, and he has responded well to these medications in the past. -Get records from outpatient psychiatrist, and coordinate care with his outpatient therapist and vocational case manager. -Brother, Amie, is his power of securities attorney we will enlist his assistance with medical decision making as the patient currently lacks capacity to refuse the recommended treatment. -Encourage patient to be out of bed during the day and participating in groups and therapy. Consider locking his door during group time if he is unable to do this on his own. -He was on an involuntary outpatient commitment, so we will file for a conversion hearing to convert to 304 involuntary treatment. 04/06 -patient has refused sertraline the past 2 days, and although he took quetiapine the first night, he refused it last night. He is refusing all groups, has not bathed, and is refusing to eat and less staff bring food to his room. -We will place him in a medically necessary private room due to severity of mood and psychotic symptoms, and request staff to lock his door during group time him to be more engaged in treatment. -Staff contacted the patient's [id number], who clarified that the patient does not actually have a power of securities attorney, although this has been documented on admission here. She reported the family is frustrated and concerned with the patient's lack of ability to care for his mental and physical needs. The family has been exploring supportive living, specifically [facility]. -Patient's vocational case manager, Av Perez, will come in for a meeting tomorrow. 04/07 -improved medication compliance with staff support; continue sertraline 200 mg daily and increase quetiapine to 100 mg at bedtime. -clinical laboratory manager, Av Perez, is coming to meet with patient today. 04/08 - Continue sertraline 200mg and increase quetiapine to 150mg HS. -On 304 commitment. Continue to encourage him to sign Y[facility] for [facility] 04/09 -pt refused quetiapine last night, having dose tonight be 1/2 of 300mg pill of quetiapine to help lower pill burden and might hold his lipid med tonight as well to help improve likelihood of pt taking his atypical antipsychotic dose that seems to be medication most needed at this time. goal is to titrate up quetiapine. Pharmacy has 50,100,200, and 300mg size pills, (in Xr form there are 150mg size, if switching to xr in future would advise dosing around 8pm. addressed pt delusional thinking and attempted reality testing. 04/10 took seroquel 150mg dose on 04/09 and noticing some improvement today pt might be improving some and might be more open to treatment ceased MNPR at this time 04/11 - Continue sertraline 200mg daily - will titration quetiapine to 200mg daily, can give previous dose of 150mg (1/2 of 300mg tablet) if refuses - Having a rather difficult day today, limited engagement in programming, continues to believe he is dying 04/12 - Continue as above. Pt refused quetiapine last evening, to receive titrated dose of 200mg tonight if compliant - Had a decent morning, though returned to fixation on dying by the afternoon 04/13 -Continue sertraline, has been taking the 200 mg dose for the past 7 days. -Continues to intermittently refuse quetiapine, only taking it on 50% of days in the past week, and received first dose of 200 mg at bedtime last night. He is unwilling to discuss other atypical antipsychotics and remains floridly delusional without insight. He lacks capacity to refuse treatment recommendations for an antipsychotic, as 1 of his delusions is that he has diabetes and is going to at any moment, so believes any treatment is futile. Recommend medications over objection, with a trial of either aripiprazole or paliperidone to target psychotic symptoms, with an IM of olanzapine for refusal of oral medication. If he responds well and tolerates the oral antipsychotic, will then transition him to the long-acting injectable form. We will asked Dr. Delarosa to see him tomorrow for a second opinion. 04/14 - The patient continues to intermittently refuse quetiapine, only taking it on 50% of days in the past week. Today, he tells me that he will refuse quetiapine and all medications, stating, "What's the use? I'm dying." He is unwilling to discuss other antipsychotics and I agree with Dr. Vann's finding that he remains floridly delusional without insight. He lacks capacity to refuse treatment recommendations for an antipsychotic, as one of his delusions is that he has diabetes (he doesn't) and is going to "maybe right now." Within this context he tells me that treatment is futile and he will refuse to take what we are prescribing to him.. I endorse the recommendation for medications over objection. I have ordered aripiprazole 10 mg daily by mouth to treat the patient's psychosis, and I have ordered olanzapine 10 mg IM for refusal of p.o. aripiprazole. Without consistent application of antipsychotic medications at the appropriate dose, it can reasonably be expected that the patient will remain dangerous to himself to the degree that inpatient psychiatric hospitalization will remain medically necessary. 04/15 -Quetiapine was discontinued in favor of aripiprazole, with an order for olanzapine IM over objection if the patient declines aripiprazole. He did, in fact, voluntarily take aripiprazole 10 mg yesterday and this morning, and reports that he did not have any difficulty tolerating it, either yesterday, or this morning. -He has been refusing sertraline. An issue may be that he may not have realized that sertraline and Zoloft are the same medication. Today, he tells me that he has a past history of febrile response to Zoloft. I have explained to him that our finding is that he is suffering from a major depression that has caused him to lose touch with certain aspects of reality and, for that reason, we feel very strongly that he must take an antidepressant medication as part of recovery. The patient tells us that he will now agree to take sertraline (Zoloft) but this remains to be seen. 04/16 -So far he has been compliant with increased dose of Abilify. Appears he would likely benefit from long-acting injectable if he continues to tolerate well 04/17 -Appears more depressive today. -Remains delusionally preoccupied -Increase Abilify to 20 mg daily. Has been compliant 04/18 -Continue aripiprazole and sertraline, and discontinue lorazepam. Encourage patient to be out of bed and participating in treatment. 04/19 - Continue as above - Pt reporting improvement in headache after receiving a heating pad - will continue to monitor. Possible etiology includes current environment (dry air, bright lights, ect.), medication side effect, or other medical concern. Will continue to observe for now, consider hospitalist bentley given his anticoagulation history to determine if NSAIDs could be appropriately considered in his case for intermittent and limited use (2) Catatonia: 04/05 -continue Lorazepam 2 mg twice daily and taper over hospital stay. Continue to treat underlying medical conditions as below. 04/06 -decrease Lorazepam to 1 mg twice daily, as he is intermittently refusing doses and it has not been overly helpful. 04/13 -patient has been refusing the at bedtime dose of lorazepam, so will discontinue it. The morning dose can likely be discontinued prior to discharge. 04/14 -The patient is poorly responsive, but not catatonic at this point. 04/18 -discontinue lorazepam, as patient retreating to his bed and want to minimize sedating effects. (3) Generalized anxiety disorder: 04/05 -continue SSRI and lorazepam as above, offer hydroxyzine as needed for anxiety. Consider resuming buspirone if indicated. 04/14 -The patient's anxious distress at this point seems primarily attributable to his delusional believes that he is moribund. Our plan is to continue to aggressively treat his psychosis and reassess anxious distress once the patient's psychotic features have resolved. 04/15 -The patient appears to be somewhat less anxious today, a circumstance that may be attributable to aripiprazole. Hopefully, the patient will also begin to take sertraline as prescribed. (4) Cellulitis: 04/05 -complete course of Keflex, last dose 04/08/2019. Infection is resolving. (5) DVT (deep venous thrombosis): 04/05 -continue Coumadin 5 mg daily, daily PT/INR, and Lovenox until INR is therapeutic. Coordinate care with Dr. Loyola, who sees him at the anticoagulation clinic. 04/07 -INR is 1.2 today, continue Coumadin and Lovenox. Coordinate with Dr. Loyola 04/11 - Reviewed consultation recommendations - discussed recs with Dr. Loyola via phone - Orders provided for patient to receive 15mg of warfarin today, then a schedule of 10mg daily SuTuThSa, and 5mg daily MWF - Recommended that enoxaparin continue until his INR is therapeutic for two days (two day overlap) - Dr. Loyola to continue to follow 04/14 -Anticoagulation therapy continues. PT and PTT values are as expected. -The patient reports no pain or tenderness in his lower extremities. 04/15 -Consulted telephonically yesterday, telephonically, with hematology. They are following, and agree that the patient's current lab values are in the target range. Several medication adjustments are being planned, and the patient remains asymptomatic. 04/16 -PT INR 26.7 and 2.8 respectively today 04/17 -INR 2.9 today (6) Hyperlipidemia: 04/05 -continue home statin. 04/09 and 04/10 aiming for pt to take med but comfortable with pt refusing this med at current time if helps him obtain his other medications, aim is for improved meed compliance occur as psychiatrically improves, lexy since currently pt pill load a factor in pt compliance Inventory Assets Strengths: Educated, supportive family Needs: Compliance with treatment, increase community supports Risk Factors Assessment Male: Yes : Yes Do You Have Access To A Gun?: No Health Problems: Yes Mental Health Diagnoses: Yes Substance Use Disorders: No Previous Attempt: Yes Family History of Suicide: No Previous Psychiatric Hospitalization: Yes Hopelessness: Yes Smoker: No Protective Factors Assessment Confucianist Beliefs: No : No Responsible for Young Children: No Employed: No Stable Relationships: Yes Supportive Family: Yes Good Rapport with Provider: No Interval History Identifying Information YINKA ROMERO is a 59-year-old M who currently lives alone in an [place], has a history of depression with psychosis, generalized anxiety disorder, treatment nonadherence and was on an involuntary outpatient commitment, and was admitted on 04/04/19 16:39 on a 302 involuntary commitment for depression with psychosis, treatment nonadherence, and inability to care for himself. He is on a 304 commitment as of 04/08/19. Chief Complaint "Oh, same as every day, just feeling lousy." Review of Systems Notes Constitutional: reports persistent headache Cardiovascular: denied Respiratory: denied Gastrointestinal: denied Neurological: denied Psychiatric: denies symptoms other than stated above Total of at least 10 systems reviewed, pertinent positives as above and in HPI. Sleep Information Total Hours of Sleep: 7.25 Sleep Comments: pt on q-15 minute checks Meal Information Percent Meal Consumed - Breakfast: 100 Percent Meal Consumed - Lunch: 100 Percent Meal Consumed - Dinner: 100 Nutrition Comment: documented from the patient meal record Subjective Subjective Patient was seen & assessed and interval progress reviewed with nursing and social work. Staff report the patient has received rather regular dosing of acetaminophen for reports of headache. He is to meet with his vocational case manager tomorrow afternoon. Pt was seen today to assess progress since admission. Pt states that he is feeling "lousy" today. He admits to persistent headache, but has difficulty describing the presentation of his symptoms. He states the pain begins as dull, and then becomes "stabby." When asked about the location of his pain, he states, "oh gees, well all over." He reports his pain is a 10/10 at its worst, and initially states that acetaminophen resolves his pain. He later states the pain is a 5/10 after taking medication. Pt denies any vision changes, photosensitivity, auditory hypersensitivity, or other accompanying symptoms. The remained of history obtained is unfortunately rather non-specific . Pt continues to believe that his physical ailments are a result of his "diabetes" and that he's "just done for." Pt denies other acute needs today, and abruptly leaves or encounter to "go lie down." He did report improvement in pain to nursing after he had been provided with a heating pad to apply to his neck. Physical Exam Psychiatric Orientation: alert and oriented x 3; + uncooperative Apperance: appropriately dressed, + disheveled and appeared stated age Eye Contact: + fair eye contact Motor Behavior: steady gait and station and no abnormal motor movements Speech: normal rate/rhythm/volume of speech (irritable tone) Affect: + depressed affect and + irritable affect Mood: + anxious mood Thought Process: + perseveration (on "diabetes" and belief he is dying) and + concrete thought process Thought Content: + preoccupation (with physical ailments, belief he is dying ) and + delusions Suicidal Thoughts: denies suicidal thoughts Hallucinations: no auditory hallucinations and no visual hallucinations Cognition: language grossly intact; + attention not intact Insight: + impaired insight Judgement: + impaired judgement Vital Signs (Past 24 Hours) Last Vital Signs Temp 36.6 C 04/19/19 06:59 Pulse 83 04/19/19 06:59 Resp 18 04/19/19 06:59 BP 118/81 04/19/19 06:59 Pulse Ox 99 04/09/19 06:00 Results & Data Laboratory Results Laboratory Results - last 24 hr 04/19/19 04/19/19 07:46 07:46 PT 26.3 H INR 2.8 H Creatinine 0.94 Est Cr Clr Drug Dosing 98.9 Est GFR ( Amer) 101.0 Est GFR (Non-Af Amer) 87.2 Current Inpatient Medications Current Inpatient Medications: Current Inpatient Medications Acetaminophen (Tylenol) 650 mg PO Q4H PRN PRN Reason: Headache or Minor Fever Stop: 05/04/19 17:30 Last Admin: 04/19/19 09:18 Dose: 650 mg Documented by: Al Hydrox/Mg Hydrox/Simethicone (Maalox) 30 ml PO Q4H PRN PRN Reason: GI Upset Stop: 05/04/19 17:30 Aripiprazole (Abilify) 20 mg PO QAM SETH Stop: 05/17/19 10:29 Last Admin: 04/19/19 08:28 Dose: 20 mg Documented by: Hydroxyzine HCl (Vistaril) 50 mg PO HSZ PRN PRN Reason: Insomnia Stop: 05/04/19 17:30 Hydroxyzine HCl (Vistaril) 25 mg PO Q4H PRN PRN Reason: Anxiety Stop: 05/04/19 17:30 Magnesium Hydroxide (Milk Of Magnesia) 30 ml PO DAILY PRN PRN Reason: Constipation Stop: 05/04/19 17:30 Olanzapine (Zyprexa) 10 mg IM DAILY PRN PRN Reason: REFUSE ABILIFY Stop: 05/14/19 11:44 Quetiapine Fumarate (Seroquel) 200 mg PO HS PRN PRN Reason: Sleep Stop: 05/14/19 11:39 Sertraline HCl (Zoloft) 200 mg PO QAM SETH Stop: 05/05/19 08:59 Last Admin: 04/19/19 08:29 Dose: 200 mg Documented by: Simvastatin (Zocor) 40 mg PO HS SETH Stop: 05/04/19 21:59 Last Admin: 04/18/19 21:54 Dose: Not Given Documented by: Sodium Chloride ([place] Nasal) 1 - 2 sprays NA PRN PRN PRN Reason: Nasal Dryness/Congestion Stop: 05/04/19 17:30 Trazodone HCl (Desyrel) 100 mg PO HS PRN PRN Reason: Sleep Stop: 05/04/19 17:33 Warfarin Sodium (Coumadin) 10 mg PO [id number]@1600 SETH Stop: 05/14/19 15:59 Last Admin: 04/18/19 16:08 Dose: 10 mg Documented by: Warfarin Sodium (Coumadin) 5 mg PO Antoine@1600 SETH Stop: 05/17/19 15:59 Last Admin: 04/17/19 16:00 Dose: 5 mg Documented by: Mental Health & Subst Abuse Tx Psychiatrist Name of Psychiatrist: [facility] - Dr. 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, [address], [place] Post Discharge Appointments Primary Care Physician Name Of Family Doctor: [facility] - Dr. Catalina Todd Primary Care Provider Appointment Comment: [address] [place] [address] [place] [address] Contact Information Discharge Discharge [address]: [address] [place] [id number] CPT Code CPT Code 53656 (1) DVT (deep venous thrombosis) DVT location: lower extremity (2) Cellulitis Site of cellulitis: unspecified site Qualified Code(s): L03.90 - Cellulitis, unspecified (3) Depression Active/Remission status: currently active Depression Type: major depressive disorder Major depression episode severity: severe Major depression recurrence: recurrent Psychotic features: with psychotic features Qualified Code(s): F33.3 - Major depressive disorder, recurrent, severe with psychotic symptoms (4) Hyperlipidemia Hyperlipidemia type: unspecified Qualified Code(s): E78.5 - Hyperlipidemia, unspecified
[2019-04-19] MEDS: WARFARIN SOD 10 MG TAB PO SCH (15:26)
[2019-04-19] MEDS: SIMVASTATIN 40 MG TAB PO SCH (21:11)
[2019-04-20 08:49] LABS: Prothrombin Time 28.2 Seconds (9.0-12.0)
[2019-04-20] MEDS: ARIPiprazole 10 MG TAB PO SCH (09:40)
[2019-04-20] MEDS: SERTRALINE HCL 100 MG TABLET PO SCH (09:45)
--- NOTE | 2019-04-20 15:02 | Psychiatric Progress Note ---
Date of Service April 20, 2019 Impression / Recommendations Surya Howard is a 59-year-old single male with a history of severe psychotic depression and generalized anxiety, as well as long-standing treatment nonadherence which has resulted in multiple involuntary outpatient commitments, who was just discharged from our unit 2 weeks prior to being hospitalized medically for DVT and lower extremity cellulitis in the context of medication nonadherence at home. Since admission, the patient has remained profoundly depressed. He often declines to leave his bed or his bedroom, except to occasionally pace the hallways. He has also steadfastly insisted that he is about to , spe cifically from complications of diabeteseven though he does not have diabetes. He also has been reluctant to take psychiatric medications, often refuses them, and has required a great deal of coaxing. Because he was refusing antidepressant medications and accepting the prescribed antipsychotic medication only about half the time, we ordered medication over objection and changed his antidepressant medication to aripiprazole. (1) Depression: 04/05 -continue sertraline 200 mg daily and quetiapine 50 mg at bedtime, which he is intermittently refusing. If he does not become more compliant with oral medications, we will pursue medications over objection, as his psychotic depression is unlikely to remit without medication, and he has responded well to these medications in the past. -Get records from outpatient psychiatrist, and coordinate care with his outpatient therapist and onsite case manager. -Brother, Amie, is his power of senior attorney we will enlist his assistance with medical decision making as the patient currently lacks capacity to refuse the recommended treatment. -Encourage patient to be out of bed during the day and participating in groups and therapy. Consider locking his door during group time if he is unable to do this on his own. -He was on an involuntary outpatient commitment, so we will file for a conversion hearing to convert to 304 involuntary treatment. 04/06 -patient has refused sertraline the past 2 days, and although he took quetiapine the first night, he refused it last night. He is refusing all groups, has not bathed, and is refusing to eat and less staff bring food to his room. -We will place him in a medically necessary private room due to severity of mood and psychotic symptoms, and request staff to lock his door during group time him to be more engaged in treatment. -Staff contacted the patient's [id number], who clarified that the patient does not actually have a power of senior attorney, although this has been documented on admission here. She reported the family is frustrated and concerned with the patient's lack of ability to care for his mental and physical needs. The family has been exploring supportive living, specifically [facility]. -Patient's onsite case manager, Av Perez, will come in for a meeting tomorrow. 04/07 -improved medication compliance with staff support; continue sertraline 200 mg daily and increase quetiapine to 100 mg at bedtime. -numerical analysis group manager, Av Perez, is coming to meet with patient today. 04/08 - Continue sertraline 200mg and increase quetiapine to 150mg HS. -On 304 commitment. Continue to encourage him to sign [facility] for [facility] 04/09 -pt refused quetiapine last night, having dose tonight be 1/2 of 300mg pill of quetiapine to help lower pill burden and might hold his lipid med tonight as well to help improve likelihood of pt taking his atypical antipsychotic dose that seems to be medication most needed at this time. goal is to titrate up quetiapine. Pharmacy has 50,100,200, and 300mg size pills, (in Xr form there are 150mg size, if switching to xr in future would advise dosing around 8pm. addressed pt delusional thinking and attempted reality testing. 04/10 took seroquel 150mg dose on 04/09 and noticing some improvement today pt might be improving some and might be more open to treatment ceased MNPR at this time 04/11 - Continue sertraline 200mg daily - will titration quetiapine to 200mg daily, can give previous dose of 150mg (1/2 of 300mg tablet) if refuses - Having a rather difficult day today, limited engagement in programming, continues to believe he is dying 04/12 - Continue as above. Pt refused quetiapine last evening, to receive titrated dose of 200mg tonight if compliant - Had a decent morning, though returned to fixation on dying by the afternoon 04/13 -Continue sertraline, has been taking the 200 mg dose for the past 7 days. -Continues to intermittently refuse quetiapine, only taking it on 50% of days in the past week, and received first dose of 200 mg at bedtime last night. He is unwilling to discuss other atypical antipsychotics and remains floridly delusional without insight. He lacks capacity to refuse treatment recommendations for an antipsychotic, as 1 of his delusions is that he has diabetes and is going to at any moment, so believes any treatment is futile. Recommend medications over objection, with a trial of either aripiprazole or paliperidone to target psychotic symptoms, with an IM of olanzapine for refusal of oral medication. If he responds well and tolerates the oral antipsychotic, will then transition him to the long-acting injectable form. We will asked Dr. Delarosa to see him tomorrow for a second opinion. 04/14 - The patient continues to intermittently refuse quetiapine, only taking it on 50% of days in the past week. Today, he tells me that he will refuse quetiapine and all medications, stating, "What's the use? I'm dying." He is unwilling to discuss other antipsychotics and I agree with Dr. Vann's finding that he remains floridly delusional without insight. He lacks capacity to refuse treatment recommendations for an antipsychotic, as one of his delusions is that he has diabetes (he doesn't) and is going to "maybe right now." Within this context he tells me that treatment is futile and he will refuse to take what we are prescribing to him.. I endorse the recommendation for medications over objection. I have ordered aripiprazole 10 mg daily by mouth to treat the patient's psychosis, and I have ordered olanzapine 10 mg IM for refusal of p.o. aripiprazole. Without consistent application of antipsychotic medications at the appropriate dose, it can reasonably be expected that the patient will remain dangerous to himself to the degree that inpatient psychiatric hospitalization will remain medically necessary. 04/15 -Quetiapine was discontinued in favor of aripiprazole, with an order for olanzapine IM over objection if the patient declines aripiprazole. He did, in fact, voluntarily take aripiprazole 10 mg yesterday and this morning, and reports that he did not have any difficulty tolerating it, either yesterday, or this morning. -He has been refusing sertraline. An issue may be that he may not have realized that sertraline and Zoloft are the same medication. Today, he tells me that he has a past history of febrile response to Zoloft. I have explained to him that our finding is that he is suffering from a major depression that has caused him to lose touch with certain aspects of reality and, for that reason, we feel very strongly that he must take an antidepressant medication as part of recovery. The patient tells us that he will now agree to take sertraline (Zoloft) but this remains to be seen. 04/16 -So far he has been compliant with increased dose of Abilify. Appears he would likely benefit from long-acting injectable if he continues to tolerate well 04/17 -Appears more depressive today. -Remains delusionally preoccupied -Increase Abilify to 20 mg daily. Has been compliant 04/18 -Continue aripiprazole and sertraline, and discontinue lorazepam. Encourage patient to be out of bed and participating in treatment. 04/19 - Continue as above - Pt reporting improvement in headache after receiving a heating pad - will continue to monitor. Possible etiology includes current environment (dry air, bright lights, ect.), medication side effect, or other medical concern. Will continue to observe for now, consider hospitalist bentley given his anticoagulation history to determine if NSAIDs could be appropriately considered in his case for intermittent and limited use 04/20 - Continue current medication regimen - Continue symptomatic treatment for headache, reporting Tylenol is effective although he is requiring routine dosing (2) Catatonia: 04/05 -continue Lorazepam 2 mg twice daily and taper over hospital stay. C ontinue to treat underlying medical conditions as below. 04/06 -decrease Lorazepam to 1 mg twice daily, as he is intermittently refusing doses and it has not been overly helpful. 04/13 -patient has been refusing the at bedtime dose of lorazepam, so will discontinue it. The morning dose can likely be discontinued prior to discharge. 04/14 -The patient is poorly responsive, but not catatonic at this point. 04/18 -discontinue lorazepam, as patient retreating to his bed and want to minimize sedating effects. (3) Generalized anxiety disorder: 04/05 -continue SSRI and lorazepam as above, offer hydroxyzine as needed for anxiety. Consider resuming buspirone if indicated. 04/14 -The patient's anxious distress at this point seems primarily attributable to his delusional believes that he is moribund. Our plan is to continue to aggressively treat his psychosis and reassess anxious distress once the patient's psychotic features have resolved. 04/15 -The patient appears to be somewhat less anxious today, a circumstance that may be attributable to aripiprazole. Hopefully, the patient will also begin to take sertraline as prescribed. (4) Cellulitis: 04/05 -complete course of Keflex, last dose 04/08/2019. Infection is resolving. (5) DVT (deep venous thrombosis): 04/05 -continue Coumadin 5 mg daily, daily PT/INR, and Lovenox until INR is therapeutic. Coordinate care with Dr. Loyola, who sees him at the anticoagulation clinic. 04/07 -INR is 1.2 today, continue Coumadin and Lovenox. Coordinate with Dr. Loyola 04/11 - Reviewed consultation recommendations - discussed recs with Dr. Loyola via phone - Orders provided for patient to receive 15mg of warfarin today, then a schedule of 10mg daily SuTuThSa, and 5mg daily MWF - Recommended that enoxaparin continue until his INR is therapeutic for two days (two day overlap) - Dr. Loyola to continue to follow 04/14 -Anticoagulation therapy continues. PT and PTT values are as expected. -The patient reports no pain or tenderness in his lower extremities. 04/15 -Consulted telephonically yesterday, telephonically, with hematology. They are following, and agree that the patient's current lab values are in the target range. Several medication adjustments are being planned, and the patient remains asymptomatic. 04/16 -PT INR 26.7 and 2.8 respectively today 04/17 -INR 2.9 today (6) Hyperlipidemia: 04/05 -continue home statin. 04/09 and 04/10 aiming for pt to take med but comfortable with pt refusing this med at current time if helps him obtain his other medications, aim is for improved meed compliance occur as psychiatrically improves, lexy since currently pt pill load a factor in pt compliance Inventory Assets Strengths: Educated, supportive family Needs: Compliance with treatment, increase community supports Risk Factors Assessment Male: Yes : Yes Do You Have Access To A Gun?: No Health Problems: Yes Mental Health Diagnoses: Yes Substance Use Disorders: No Previous Attempt: Yes Family History of Suicide: No Previous Psychiatric Hospitalization: Yes Hopelessness: Yes Smoker: No Protective Factors Assessment Oriental Orthodox Beliefs: No : No Responsible for Young Children: No Employed: No Stable Relationships: Yes Supportive Family: Yes Good Rapport with Provider: No Interval History Identifying Information YINKA ROMERO is a 59-year-old M who currently lives alone in an [place], has a history of depression with psychosis, generalized anxiety disorder, treatment nonadherence and was on an involuntary outpatient commitment, and was admitted on 04/04/19 16:39 on a 302 involuntary commitment for depression with psychosis, treatment nonadherence, and inability to care for himself. He is on a 304 commitment as of 04/08/19. Chief Complaint "Not much better." Review of Systems Notes Constitutional: reports headache and vague generalized weakness Cardiovascular: denied Respiratory: denied Gastrointestinal: denied Neurological: denied Psychiatric: denies symptoms other than stated above Total of at least 10 systems reviewed, pertinent positives as above and in HPI. Sleep Information Total Hours of Sleep: 7.75 Sleep Comments: pt on q-15 minute checks Meal Information Percent Meal Consumed - Breakfast: 100 Percent Meal Consumed - Lunch: 100 Percent Meal Consumed - Dinner: 100 Nutrition Comment: documented from the patient meal record Subjective Subjective Patient was seen & assessed and interval progress reviewed with treatment team. Staff report the patient continues to isolate in his room, reporting headache periodically. Pt is to have a visit with his onsite case manager this afternoon. Pt was seen today to assess progress since admission. Pt states he is "not good." He verbalizes various physical complaints, including cold hands and headache. Pt states that the Tylenol is beneficial for his headaches. He admits this is mood is "oh probably worse, how could it not be, when you consider the diabetes and all." Pt is willing to discuss his previous history with ECT and admits it was beneficial for his depression. When asked if he would consider this treatment again, he states, "not it this condition, there's no way I'd survive it like this." Pt was agreeable to considering the treatment option, especially as he begins to feel better physically. Pt denies other needs or concerns today. Physical Exam Psychiatric Orientation: alert, oriented x 3 and + guarded Apperance: appropriately dressed, + disheveled and appeared stated age Eye Contact: + fair eye contact Motor Behavior: steady gait and station and no abnormal motor movements Speech: normal rate/rhythm/volume of speech (non-spontaneous, brief responses to questions) Affect: + depressed affect, + anxious affect and mood congruent with affect Mood: + depressed mood ("Not much better", admitting mood is "probably worse today") Thought Process: + perseveration (on somatic complaints, perceived evidence of diabetes) and + concrete thought process Thought Content: + preoccupation (with presumption he has diabetes), + delus ions, + hopelessness and + worthlessness Suicidal Thoughts: denies suicidal thoughts Insight: + impaired insight Judgement: + impaired judgement Vital Signs (Past 24 Hours) Last Vital Signs Temp 36.7 C 04/20/19 06:47 Pulse 76 04/20/19 06:47 Resp 18 04/20/19 06:47 BP 126/85 04/20/19 06:47 Pulse Ox 99 04/09/19 06:00 Results & Data Laboratory Results Laboratory Results - last 24 hr 04/20/19 07:56 PT 28.2 H INR 3.0 H Current Inpatient Medications Current Inpatient Medications: Current Inpatient Medications Acetaminophen (Tylenol) 650 mg PO Q4H PRN PRN Reason: Headache or Minor Fever Stop: 05/04/19 17:30 Last Admin: 04/19/19 20:33 Dose: 650 mg Documented by: Al Hydrox/Mg Hydrox/Simethicone (Maalox) 30 ml PO Q4H PRN PRN Reason: GI Upset Stop: 05/04/19 17:30 Aripiprazole (Abilify) 20 mg PO QAM SETH Stop: 05/17/19 10:29 Last Admin: 04/20/19 09:40 Dose: 20 mg Documented by: Hydroxyzine HCl (Vistaril) 50 mg PO HSZ PRN PRN Reason: Insomnia Stop: 05/04/19 17:30 Hydroxyzine HCl (Vistaril) 25 mg PO Q4H PRN PRN Reason: Anxiety Stop: 05/04/19 17:30 Magnesium Hydroxide (Milk Of Magnesia) 30 ml PO DAILY PRN PRN Reason: Constipation Stop: 05/04/19 17:30 Olanzapine (Zyprexa) 10 mg IM DAILY PRN PRN Reason: REFUSE ABILIFY Stop: 05/14/19 11:44 Quetiapine Fumarate (Seroquel) 200 mg PO HS PRN PRN Reason: Sleep Stop: 05/14/19 11:39 Sertraline HCl (Zoloft) 200 mg PO QAM SETH Stop: 05/05/19 08:59 Last Admin: 04/20/19 09:45 Dose: 200 mg Documented by: Simvastatin (Zocor) 40 mg PO HS SETH Stop: 05/04/19 21:59 Last Admin: 04/19/19 21:11 Dose: 40 mg Documented by: Sodium Chloride ([place] Nasal) 1 - 2 sprays NA PRN PRN PRN Reason: Nasal Dryness/Congestion Stop: 05/04/19 17:30 Trazodone HCl (Desyrel) 100 mg PO HS PRN PRN Reason: Sleep Stop: 05/04/19 17:33 Warfarin Sodium (Coumadin) 10 mg PO [id number]@1600 SETH Stop: 05/14/19 15:59 Last Admin: 04/19/19 15:26 Dose: 10 mg Documented by: Warfarin Sodium (Coumadin) 5 mg PO Antoine@1600 SETH Stop: 05/17/19 15:59 Last Admin: 04/17/19 16:00 Dose: 5 mg Documented by: Mental Health & Subst Abuse Tx Psychiatrist Name of Psychiatrist: [facility] - Dr. Harrington Psychiatrist's Time of Appointment with Psychiatrist: Dr Todd Psychiatric Appointment Comment: [address] [place], [place] [address]y [address], [place] [address] Therapist Name of Therapist: [facility] - Juan Menendez [facility] Therapist's Therapy Appointment Comment: [address] [facility] Newcomer Hostess Name of Newcomer Hostess: [employer] - Av Perez Phone Number for Newcomer Hostess: [phone] Case Management Appointment Comment: [address] [facility], [address], [place] Post Discharge Appointments Primary Care Physician Name Of Family Doctor: [facility] - Dr. Catalina Todd Primary Care Provider Appointment Comment: [address] [place], [place] [address] [address] Contact Information Discharge Discharge Address: [address] [place] [address] CPT Code CPT Code 00964 (1) DVT (deep venous thrombosis) DVT location: lower extremity (2) Cellulitis Site of cellulitis: unspecified site Qualified Code(s): L03.90 - Cellulitis, unspecified (3) Depression Active/Remission status: currently active Depression Type: major depressive disorder Major depression episode severity: severe Major depression recur rence: recurrent Psychotic features: with psychotic features Qualified Code(s): F33.3 - Major depressive disorder, recurrent, severe with psychotic symptoms (4) Hyperlipidemia Hyperlipidemia type: unspecified Qualified Code(s): E78.5 - Hyperlipidemia, unspecified
[2019-04-20] MEDS: WARFARIN SOD 10 MG TAB PO SCH (15:55)
[2019-04-20] MEDS: ACETAMINOPHEN 325 MG TAB PO PRN (15:59)
[2019-04-20] MEDS: SIMVASTATIN 40 MG TAB PO SCH (21:23)
[2019-04-21] MEDS: ARIPiprazole 10 MG TAB PO SCH (08:28)
[2019-04-21] MEDS: SERTRALINE HCL 100 MG TABLET PO SCH (08:28)
[2019-04-21 08:34] LABS: INR 3.2 (0.9-1.1); Prothrombin Time 30.2 Seconds (9.0-12.0)
[2019-04-21] MEDS: ACETAMINOPHEN 325 MG TAB PO PRN ×2 (10:10→23:11)
--- NOTE | 2019-04-21 10:10 | Psychiatric Progress Note ---
Date of Service April 21, 2019 Impression / Recommendations Surya Howard is a 59-year-old single male with a history of severe psychotic depression and generalized anxiety, as well as long-standing treatment nonadherence which has resulted in multiple involuntary outpatient commitments, who was just discharged from our unit 2 weeks prior to being hospitalized medically for DVT and lower extremity cellulitis in the context of medication nonadherence at home. Since admission, the patient has remained profoundly depressed. He often declines to leave his bed or his bedroom, except to occasionally pace the hallways. He has also steadfastly insisted that he is about to , spe cifically from complications of diabeteseven though he does not have diabetes. He also has been reluctant to take psychiatric medications, often refuses them, and has required a great deal of coaxing. Because he was refusing antidepressant medications and accepting the prescribed antipsychotic medication only about half the time, we ordered medication over objection and changed his antidepressant medication to aripiprazole. (1) Depression: 04/05 -continue sertraline 200 mg daily and quetiapine 50 mg at bedtime, which he is intermittently refusing. If he does not become more compliant with oral medications, we will pursue medications over objection, as his psychotic depression is unlikely to remit without medication, and he has responded well to these medications in the past. -Get records from outpatient psychiatrist, and coordinate care with his outpatient therapist and field nurse case manager. -Brother, Amie, is his power of title attorney we will enlist his assistance with medical decision making as the patient currently lacks capacity to refuse the recommended treatment. -Encourage patient to be out of bed during the day and participating in groups and therapy. Consider locking his door during group time if he is unable to do this on his own. -He was on an involuntary outpatient commitment, so we will file for a conversion hearing to convert to 304 involuntary treatment. 04/06 -patient has refused sertraline the past 2 days, and although he took quetiapine the first night, he refused it last night. He is refusing all groups, has not bathed, and is refusing to eat and less staff bring food to his room. -We will place him in a medically necessary private room due to severity of mood and psychotic symptoms, and request staff to lock his door during group time him to be more engaged in treatment. -Staff contacted the patient's [id number], who clarified that the patient does not actually have a power of title attorney, although this has been documented on admission here. She reported the family is frustrated and concerned with the patient's lack of ability to care for his mental and physical needs. The family has been exploring supportive living, specifically [facility]. -Patient's field nurse case manager, Av Perez, will come in for a meeting tomorrow. 04/07 -improved medication compliance with staff support; continue sertraline 200 mg daily and increase quetiapine to 100 mg at bedtime. -general operations manager, Av Perez, is coming to meet with patient today. 04/08 - Continue sertraline 200mg and increase quetiapine to 150mg HS. -On 304 commitment. Continue to encourage him to sign YAAY for [facility] 04/09 -pt refused quetiapine last night, having dose tonight be 1/2 of 300mg pill of quetiapine to help lower pill burden and might hold his lipid med tonight as well to help improve likelihood of pt taking his atypical antipsychotic dose that seems to be medication most needed at this time. goal is to titrate up quetiapine. Pharmacy has 50,100,200, and 300mg size pills, (in Xr form there are 150mg size, if switching to xr in future would advise dosing around 8pm. addressed pt delusional thinking and attempted reality testing. 04/10 took seroquel 150mg dose on 04/09 and noticing some improvement today pt might be improving some and might be more open to treatment ceased MNPR at this time 04/11 - Continue sertraline 200mg daily - will titration quetiapine to 200mg daily, can give previous dose of 150mg (1/2 of 300mg tablet) if refuses - Having a rather difficult day today, limited engagement in programming, continues to believe he is dying 04/12 - Continue as above. Pt refused quetiapine last evening, to receive titrated dose of 200mg tonight if compliant - Had a decent morning, though returned to fixation on dying by the afternoon 04/13 -Continue sertraline, has been taking the 200 mg dose for the past 7 days. -Continues to intermittently refuse quetiapine, only taking it on 50% of days in the past week, and received first dose of 200 mg at bedtime last night. He is unwilling to discuss other atypical antipsychotics and remains floridly delusional without insight. He lacks capacity to refuse treatment recommendations for an antipsychotic, as 1 of his delusions is that he has diabetes and is going to at any moment, so believes any treatment is futile. Recommend medications over objection, with a trial of either aripiprazole or paliperidone to target psychotic symptoms, with an IM of olanzapine for refusal of oral medication. If he responds well and tolerates the oral antipsychotic, will then transition him to the long-acting injectable form. We will asked Dr. Delarosa to see him tomorrow for a second opinion. 04/14 - The patient continues to intermittently refuse quetiapine, only taking it on 50% of days in the past week. Today, he tells me that he will refuse quetiapine and all medications, stating, "What's the use? I'm dying." He is unwilling to discuss other antipsychotics and I agree with Dr. Vann's finding that he remains floridly delusional without insight. He lacks capacity to refuse treatment recommendations for an antipsychotic, as one of his delusions is that he has diabetes (he doesn't) and is going to "maybe right now." Within this context he tells me that treatment is futile and he will refuse to take what we are prescribing to him.. I endorse the recommendation for medications over objection. I have ordered aripiprazole 10 mg daily by mouth to treat the patient's psychosis, and I have ordered olanzapine 10 mg IM for refusal of p.o. aripiprazole. Without consistent application of antipsychotic medications at the appropriate dose, it can reasonably be expected that the patient will remain dangerous to himself to the degree that inpatient psychiatric hospitalization will remain medically necessary. 04/15 -Quetiapine was discontinued in favor of aripiprazole, with an order for olanzapine IM over objection if the patient declines aripiprazole. He did, in fact, voluntarily take aripiprazole 10 mg yesterday and this morning, and reports that he did not have any difficulty tolerating it, either yesterday, or this morning. -He has been refusing sertraline. An issue may be that he may not have realized that sertraline and Zoloft are the same medication. Today, he tells me that he has a past history of febrile response to Zoloft. I have explained to him that our finding is that he is suffering from a major depression that has caused him to lose touch with certain aspects of reality and, for that reason, we feel very strongly that he must take an antidepressant medication as part of recovery. The patient tells us that he will now agree to take sertraline (Zoloft) but this remains to be seen. 04/16 -So far he has been compliant with increased dose of Abilify. Appears he would likely benefit from long-acting injectable if he continues to tolerate well 04/17 -Appears more depressive today. -Remains delusionally preoccupied -Increase Abilify to 20 mg daily. Has been compliant 04/18 -Continue aripiprazole and sertraline, and discontinue lorazepam. Encourage patient to be out of bed and participating in treatment. 04/19 - Continue as above - Pt reporting improvement in headache after receiving a heating pad - will continue to monitor. Possible etiology includes current environment (dry air, bright lights, ect.), medication side effect, or other medical concern. Will continue to observe for now, consider hospitalist bentley given his anticoagulation history to determine if NSAIDs could be appropriately considered in his case for intermittent and limited use 04/20 - Continue current medication regimen - Continue symptomatic treatment for headache, reporting Tylenol is effective although he is requiring routine dosing 04/21 - Titrating aripiprazole to 30mg qAM starting tomorrow; continue sertraline 200mg daily. Pt continues to be focused on number of pills being given to him, but this is difficult to rectify based on available pharmacy dosing of ordered medications - Tylenol remains helpful for headache symptoms, but symptoms return throughout the day - Discussed persistent reports of headache with hospitalist - felt to be ok to offer ibuprofen prn for headache symptoms despite anticoagulation status; continue to monitor - Anticipate meeting with [facility] representatives next week (2) Catatonia: 04/05 -continue Lorazepam 2 mg twice daily and taper over hospital stay. Continue to treat underlying medical conditions as below. 04/06 -decrease Lorazepam to 1 mg twice daily, as he is intermittently refusing doses and it has not been overly helpful. 04/13 -patient has been refusing the at bedtime dose of lorazepam, so will discontinue it. The morning dose can likely be discontinued prior to discharge. 04/14 -The patient is poorly responsive, but not catatonic at this point. 04/18 -discontinue lorazepam, as patient retreating to his bed and want to minimize sedating effects. (3) Generalized anxiety disorder: 04/05 -continue SSRI and lorazepam as above, offer hydroxyzine as needed for anxiety. Consider resuming buspirone if indicated. 04/14 -The patient's anxious distress at this point seems primarily attributable to his delusional believes that he is moribund. Our plan is to continue to aggressively treat his psychosis and reassess anxious distress once the patient's psychotic features have resolved. 04/15 -The patient appears to be somewhat less anxious today, a circumstance that may be attributable to aripiprazole. Hopefully, the patient will also begin to take sertraline as prescribed. (4) Cellulitis: 04/05 -complete course of Keflex, last dose 04/08/2019. Infection is resolving. (5) DVT (deep venous thrombosis): 04/05 -continue Coumadin 5 mg daily, daily PT/INR, and Lovenox until INR is therapeutic. Coordinate care with Dr. Loyola, who sees him at the anticoagulation clinic. 04/07 -INR is 1.2 today, continue Coumadin and Lovenox. Coordinate with Dr. Loyola 04/11 - Reviewed consultation recommendations - discussed recs with Dr. Loyola via phone - Orders provided for patient to receive 15mg of warfarin today, then a sche dule of 10mg daily SuTuThSa, and 5mg daily MWF - Recommended that enoxaparin continue until his INR is therapeutic for two days (two day overlap) - Dr. Loyola to continue to follow 04/14 -Anticoagulation therapy continues. PT and PTT values are as expected. -The patient reports no pain or tenderness in his lower extremities. 04/15 -Consulted telephonically yesterday, telephonically, with hematology. They are following, and agree that the patient's current lab values are in the target range. Several medication adjustments are being planned, and the patient remains asymptomatic. 04/16 -PT INR 26.7 and 2.8 respectively today 04/17 -INR 2.9 today (6) Hyperlipidemia: 04/05 -continue home statin. 04/09 and 04/10 aiming for pt to take med but comfortable with pt refusing this med at current time if helps him obtain his other medications, aim is for improved meed compliance occur as psychiatrically improves, lexy since currently pt pill load a factor in pt compliance Inventory Assets Strengths: Educated, supportive family Needs: Compliance with treatment, increase community supports Risk Factors Assessment Male: Yes : Yes Do You Have Access To A Gun?: No Health Problems: Yes Mental Health Diagnoses: Yes Substance Use Disorders: No Previous Attempt: Yes Family History of Suicide: No Previous Psychiatric Hospitalization: Yes Hopelessness: Yes Smoker: No Protective Factors Assessment Church Beliefs: No : No Responsible for Young Children: No Employed: No Stable Relationships: Yes Supportive Family: Yes Good Rapport with Provider: No Interval History Identifying Information YINKA ROMERO is a 59-year-old M who currently lives alone in an [place], has a history of depression with psychosis, generalized anxiety disorder, treatment nonadherence and was on an involuntary outpatient commitment, and was admitted on 04/04/19 16:39 on a 302 involuntary commitment for depression with psychosis, treatment nonadherence, and inability to care for himself. He is on a 304 commitment as of 04/08/19. Chief Complaint "Oh man...didn't I just speak with you yesterday?" Review of Systems Notes Constitutional: reports episodic dizziness Cardiovascular: denied Respiratory: denied Gastrointestinal: denied Neurological: report ongoing headache Psychiatric: denies symptoms other than stated above Total of at least 10 systems reviewed, pertinent positives as above and in HPI. Sleep Information Total Hours of Sleep: 7 Sleep Comments: pt on q-15 minute checks Meal Information Percent Meal Consumed - Breakfast: 100 Percent Meal Consumed - Lunch: 100 Percent Meal Consumed - Dinner: 100 Nutrition Comment: documented from the patient meal record Subjective Subjective Patient was seen & assessed and interval progress reviewed with nursing and social work. Staff reports the patient continues to complain of headache. He is scheduled for a meeting with his field nurse case manager and representatives from [facility] on 04/26/19. Patient was seen today to assess progress since admission. Pt states he continues to be "lousy". He initially appears annoyed with this provider, wondering why we are meeting. This provider reminded the patient that we meet with everyone daily to discuss progress. Pt states that he is not feeling much better, and feels the sertraline is causing him to have a headache. We reviewed previous use of sertraline, and patient does not believe he experienced these issues in the past. Pt met with his field nurse case manager yesterday, and reports he is to be meeting with [facility] representatives next week. Pt does not verbalize a strong opinion regarding this discharge plan, but rather continues to focus his attention on his perceived physical ailments and reported headache. Pt admits that the Tylenol is helpful, but the symptoms often return. Pt denies SI, but continues to report hopelessness regarding his treatment progress. Pt denies other acute needs at this time. Physical Exam Psychiatric Orientation: alert, oriented x 3, cooperative (supficially) and + guarded Apperance: appropriately dressed (wearing clean t-shirt and scrub pants), + disheveled and appeared stated age Eye Contact: + poor eye contact Motor Behavior: steady gait and station and no abnormal motor movements Speech: normal rate/rhythm/volume of speech (soft, but irritable tone) Affect: + depressed affect and + irritable affect (appearing frustrated) Mood: no depressed mood ("It's not depression, it's the diabetes") Thought Process: + perseveration (on headache and other somatic complaints) and + concrete thought process; + thought process not linear or logical Thought Content: + preoccupation (with perceived medical issues), + delusions, + hopelessness and + self deprecation Suicidal Thoughts: denies suicidal thoughts (but continues to verbalize belief that he is dying from diabetes) Hallucinations: no auditory hallucinations and no visual hallucinations Cognition: attention grossly intact and language grossly intact Insight: + impaired insight Judgement: + impaired judgement Vital Signs (Past 24 Hours) Last Vital Signs Temp 36.6 C 04/21/19 06:58 Pulse 77 04/21/19 06:59 Resp 18 04/21/19 06:58 BP 125/83 04/21/19 06:59 Pulse Ox 99 04/09/19 06:00 Results & Data Laboratory Results Laboratory Results - last 24 hr 04/21/19 07:59 PT 30.2 H INR 3.2 H Current Inpatient Medications Current Inpatient Medications: Current Inpatient Medications Acetaminophen (Tylenol) 650 mg PO Q4H PRN PRN Reason: Headache or Minor Fever Stop: 05/04/19 17:30 Last Admin: 04/20/19 15:59 Dose: 650 mg Documented by: Al Hydrox/Mg Hydrox/Simethicone (Maalox) 30 ml PO Q4H PRN PRN Reason: GI Upset Stop: 05/04/19 17:30 Aripiprazole (Abilify) 20 mg PO QAM SETH Stop: 05/17/19 10:29 Last Admin: 04/21/19 08:28 Dose: 20 mg Documented by: Hydroxyzine HCl (Vistaril) 50 mg PO HSZ PRN PRN Reason: Insomnia Stop: 05/04/19 17:30 Hydroxyzine HCl (Vistaril) 25 mg PO Q4H PRN PRN Reason: Anxiety Stop: 05/04/19 17:30 Magnesium Hydroxide (Milk Of Magnesia) 30 ml PO DAILY PRN PRN Reason: Constipation Stop: 05/04/19 17:30 Olanzapine (Zyprexa) 10 mg IM DAILY PRN PRN Reason: REFUSE ABILIFY Stop: 05/14/19 11:44 Quetiapine Fumarate (Seroquel) 200 mg PO HS PRN PRN Reason: Sleep Stop: 05/14/19 11:39 Sertraline HCl (Zoloft) 200 mg PO QAM [facility] Stop: 05/05/19 08:59 Last Admin: 04/21/19 08:28 Dose: 200 mg Documented by: Simvastatin (Zocor) 40 mg PO HS SETH Stop: 05/04/19 21:59 Last Admin: 04/20/19 21:23 Dose: Not Given Documented by: Sodium Chloride ([place] Nasal) 1 - 2 sprays NA PRN PRN PRN Reason: Nasal Dryness/Congestion Stop: 05/04/19 17:30 Trazodone HCl (Desyrel) 100 mg PO HS PRN PRN Reason: Sleep Stop: 05/04/19 17:33 Warfarin Sodium (Coumadin) 10 mg PO [id number]@1600 [facility] Stop: 05/14/19 15:59 Last Admin: 04/20/19 15:55 Dose: 10 mg Documented by: Warfarin Sodium (Coumadin) 5 mg PO Antoine@1600 SETH Stop: 05/17/19 15:59 Last Admin: 04/17/19 16:00 Dose: 5 mg Documented by: Mental Health & Subst Abuse Tx Psychiatrist Name of Psychiatrist: [facility] - Dr. Harrington Psychiatrist's Time of Appointment with Psychiatrist: Dr Todd Psychiatric Appointment Comment: [address], [place] [address] Therapist Name of Therapist: [facility] - Juan Menendez ACSW Therapist's Therapy Appointment Comment: [address], [place] Marketing Intelligence Analyst Name of Marketing Intelligence Analyst: [employer] - Av Perez Phone Number for Marketing Intelligence Analyst: [phone] Case Management Appointment Comment: [address], [address], [place] Post Discharge Appointments Primary Care Physician Name Of Family Doctor: [facility] - Dr. Catalina Todd Primary Care Provider Appointment Comment: [address] [place] [address] [place] [address] Contact Information Discharge Discharge Address: [address] [place] [address] CPT Code CPT Code 56256 (1) DVT (deep venous thrombosis) DVT location: lower extremity (2) Cellulitis Site of cellulitis: unspecified site Qualified Code(s): L03.90 - Cellulitis, unspecified (3) Depression Active/Remission status: currently active Depression Type: major depressive disorder Major depression episode severity: severe Major depression recurrence: recurrent Psychotic features: with psychotic features Qualified Code(s): F33.3 - Major depressive disorder, recurrent, severe with psychotic symptoms (4) Hyperlipidemia Hyperlipidemia type: unspecified Qualified Code(s): E78.5 - Hyperlipidemia, unspecified
[2019-04-21] MEDS ORDERED: IBUPROFEN 600 MG TAB PO PRN (10:13)
[2019-04-21] MEDS: WARFARIN SOD 10 MG TAB PO SCH (16:46)
[2019-04-21] MEDS: SIMVASTATIN 40 MG TAB PO SCH (21:35)
[2019-04-22] MEDS: SERTRALINE HCL 100 MG TABLET PO SCH (08:35)
[2019-04-22] MEDS: ARIPiprazole 10 MG TAB PO SCH (08:35)
[2019-04-22 08:41] LABS: INR 3.5 (0.9-1.1); Prothrombin Time 32.4 Seconds (9.0-12.0)
[2019-04-22 09:01] LABS: Creatinine Clr Calc Pharmacy 86.1 ml/min; Est GFR (African American) 85.4; Est GFR (Non-African American) 73.7
--- NOTE | 2019-04-22 14:35 | Psychiatric Progress Note ---
Date of Service April 22, 2019 Impression / Recommendations Surya Howard is a 59-year-old single male with a history of severe psychotic depression and generalized anxiety, as well as long-standing treatment nonadherence which has resulted in multiple involuntary outpatient commitments, who was just discharged from our unit 2 weeks prior to being hospitalized medically for DVT and lower extremity cellulitis in the context of medication nonadherence at home. The patient's has been treated with aripiprazole and sertraline for his psychotic depression. The dose of aripiprazole has been titrated to a dose of 30 mg a day, and the dose of sertraline has been titrated to a dose of 200 mg a day. The patient's INR has been rising fairly steadily and today was measured at 3.5, with an order to hold warfarin for an INR above 3.5. Given that we have been increasing the patient's dose of sertraline which can affect clotting times in combination with warfarin we are holding his dose of warfarin today and tomorrow, and will resume his regular schedule on Thursday, while continuing serial coagulation studies. The patient does allow that his depression has been improving, although he remains somewhat hopeless. He also claims to be seriously ill and continues to assert that he "gave [himself] diabetes" when, in fact, he is not diabetic. However, today he did not say that he believes that he is definitely going to , but, instead, said that he feels "sick enough" to possibly , but is willing to accept that he is not going to anytime soon. (1) Depression: 04/05 -continue sertraline 200 mg daily and quetiapine 50 mg at bedtime, which he is intermittently refusing. If he does not become more compliant with oral medications, we will pursue medications over objection, as his psychotic depression is unlikely to remit without medication, and he has responded well to these medications in the past. -Get records from outpatient psychiatrist, and coordinate care with his outpatient therapist and case operator. -Brother, Amie, is his power of claims attorney we will enlist his assistance with medical decision making as the patient currently lacks capacity to refuse the recommended treatment. -Encourage patient to be out of bed during the day and participating in groups and therapy. Consider locking his door during group time if he is unable to do this on his own. -He was on an involuntary outpatient commitment, so we will file for a conversion hearing to convert to 304 involuntary treatment. 04/06 -patient has refused sertraline the past 2 days, and although he took quetiapine the first night, he refused it last night. He is refusing all groups, has not bathed, and is refusing to eat and less staff bring food to his room. -We will place him in a medically necessary private room due to severity of mood and psychotic symptoms, and request staff to lock his door during group time him to be more engaged in treatment. -Staff contacted the patient's [id number], who clarified that the patient does not actually have a power of claims attorney, although this has been documented on admission here. She reported the family is frustrated and concerned with the patient's lack of ability to care for his mental and physical needs. The family has been exploring supportive living, specifically [facility]. -Patient's case operator, Av Perez, will come in for a meeting tomorrow. 04/07 -improved medication compliance with staff support; continue sertraline 200 mg daily and increase quetiapine to 100 mg at bedtime. -adult manager, Av Perez, is coming to meet with patient today. 04/08 - Continue sertraline 200mg and increase quetiapine to 150mg HS. -On 304 commitment. Continue to encourage him to sign YAYA for [facility] 04/09 -pt refused quetiapine last night, having dose tonight be 1/2 of 300mg pill of quetiapine to help lower pill burden and might hold his lipid med tonight as well to help improve likelihood of pt taking his atypical antipsychotic dose that seems to be medication most needed at this time. goal is to titrate up quetiapine. Pharmacy has 50,100,200, and 300mg size pills, (in Xr form there are 150mg size, if switching to xr in future would advise dosing around 8pm. addressed pt delusional thinking and attempted reality testing. 04/10 took seroquel 150mg dose on 04/09 and noticing some improvement today pt might be improving some and might be more open to treatment ceased MNPR at this time 04/11 - Continue sertraline 200mg daily - will titration quetiapine to 200mg daily, can give previous dose of 150mg (1/2 of 300mg tablet) if refuses - Having a rather difficult day today, limited engagement in programming, continues to believe he is dying 04/12 - Continue as above. Pt refused quetiapine last evening, to receive titrated dose of 200mg tonight if compliant - Had a decent morning, though returned to fixation on dying by the afternoon 04/13 -Continue sertraline, has been taking the 200 mg dose for the past 7 days. -Continues to intermittently refuse quetiapine, only taking it on 50% of days in the past week, and received first dose of 200 mg at bedtime last night. He is unwilling to discuss other atypical antipsychotics and remains floridly delusional without insight. He lacks capacity to refuse treatment recommendations for an antipsychotic, as 1 of his delusions is that he has diabetes and is going to at any moment, so believes any treatment is futile. Recommend medications over objection, with a trial of either aripiprazole or paliperidone to target psychotic symptoms, with an IM of olanzapine for refusal of oral medication. If he responds well and tolerates the oral antipsychotic, will then transition him to the long-acting injectable form. We will asked Dr. Delarosa to see him tomorrow for a second opinion. 04/14 - The patient continues to intermittently refuse quetiapine, only taking it on 50% of days in the past week. Today, he tells me that he will refuse quetiapine and all medications, stating, "What's the use? I'm dying." He is unwilling to discuss other antipsychotics and I agree with Dr. Vann's finding that he remains floridly delusional without insight. He lacks capacity to re fuse treatment recommendations for an antipsychotic, as one of his delusions is that he has diabetes (he doesn't) and is going to "maybe right now." Within this context he tells me that treatment is futile and he will refuse to take what we are prescribing to him.. I endorse the recommendation for medications over objection. I have ordered aripiprazole 10 mg daily by mouth to treat the patient's psychosis, and I have ordered olanzapine 10 mg IM for refusal of p.o. aripiprazole. Without consistent application of antipsychotic medications at the appropriate dose, it can reasonably be expected that the patient will remain dangerous to himself to the degree that inpatient psychiatric hospitalization will remain medically necessary. 04/15 -Quetiapine was discontinued in favor of aripiprazole, with an order for olanzapine IM over objection if the patient declines aripiprazole. He did, in fact, voluntarily take aripiprazole 10 mg yesterday and this morning, and reports that he did not have any difficulty tolerating it, either yesterday, or this morning. -He has been refusing sertraline. An issue may be that he may not have realized that sertraline and Zoloft are the same medication. Today, he tells me that he has a past history of febrile response to Zoloft. I have explained to him that our finding is that he is suffering from a major depression that has caused him to lose touch with certain aspects of reality and, for that reason, we feel very strongly that he must take an antidepressant medication as part of recovery. The patient tells us that he will now agree to take sertraline (Zoloft) but this remains to be seen. 04/16 -So far he has been compliant with increased dose of Abilify. Appears he would likely benefit from long-acting injectable if he continues to tolerate well 04/17 -Appears more depressive today. -Remains delusionally preoccupied -Increase Abilify to 20 mg daily. Has been compliant 04/18 -Continue aripiprazole and sertraline, and discontinue lorazepam. Encourage patient to be out of bed and participating in treatment. 04/19 - Continue as above - Pt reporting improvement in headache after receiving a heating pad - will continue to monitor. Possible etiology includes current environment (dry air, bright lights, ect.), medication side effect, or other medical concern. Will continue to observe for now, consider hospitalist bentley given his anticoagulation history to determine if NSAIDs could be appropriately considered in his case for intermittent and limited use 04/20 - Continue current medication regimen - Continue symptomatic treatment for headache, reporting Tylenol is effective although he is requiring routine dosing 04/21 - Titrating aripiprazole to 30mg qAM starting tomorrow; continue sertraline 200mg daily. Pt continues to be focused on number of pills being given to him, but this is difficult to rectify based on available pharmacy dosing of ordered medications - Tylenol remains helpful for headache symptoms, but symptoms return throughout the day - Discussed persistent reports of headache with hospitalist - felt to be ok to offer ibuprofen prn for headache symptoms despite anticoagulation status; continue to monitor - Anticipate meeting with [facility] representatives next week 04/22 -The patient does report improvement in his depression, although he also says that he feels that his depression is "so severe" that medications are unlikely to be more than a "drop in the bucket." -The patient's affect is noticeably brighter and more animated. Today, he laughed several times, appropriately, during our encounter. -The plan is to continue sertraline 200 mg daily in combination with aripiprazole 30 mg daily. -We are also emphasizing reality testing and illness teaching through individual and group therapies. The patient remains active and activity therapy and tells us that this is 1 of his favorite parts of hospitalization. (2) Catatonia: 04/05 -continue Lorazepam 2 mg twice daily and taper over hospital stay. Continue to treat underlying medical conditions as below. 04/06 -decrease Lorazepam to 1 mg twice daily, as he is intermittently refusing doses and it has not been overly helpful. 04/13 -patient has been refusing the at bedtime dose of lorazepam, so will discontinue it. The morning dose can likely be discontinued prior to discharge. 04/14 -The patient is poorly responsive, but not catatonic at this point. 04/18 -discontinue lorazepam, as patient retreating to his bed and want to minimize sedating effects. (3) Generalized anxiety disorder: 04/05 -continue SSRI and lorazepam as above, offer hydroxyzine as needed for anxiety. Consider resuming buspirone if indicated. 04/14 -The patient's anxious distress at this point seems primarily attributable to his delusional believes that he is moribund. Our plan is to continue to aggressively treat his psychosis and reassess anxious distress once the patient's psychotic features have resolved. 04/15 -The patient appears to be somewhat less anxious today, a circumstance that may be attributable to aripiprazole. Hopefully, the patient will also begin to take sertraline as prescribed. 04/22 -The patient appears to be less anxious today and tells us that he is feeling more relaxed and less upset. (4) Cellulitis: 04/05 -complete course of Keflex, last dose 04/08/2019. Infection is resolving. 04/22 -Infection appears to have resolved. (5) DVT (deep venous thrombosis): 04/05 -continue Coumadin 5 mg daily, daily PT/INR, and Lovenox until INR is therapeutic. Coordinate care with Dr. Loyola, who sees him at the anticoagulation clinic. 04/07 -INR is 1.2 today, continue Coumadin and Lovenox. Coordinate with Dr. Loyola 04/11 - Reviewed consultation recommendations - discussed recs with Dr. Loyola via phone - Orders provided for patient to receive 15mg of warfarin today, then a schedule of 10mg daily SuTuThSa, and 5mg daily MWF - Recommended that enoxaparin continue until his INR is therapeutic for two days (two day overlap) - Dr. Loyola to continue to follow 04/14 -Anticoagulation therapy continues. PT and PTT values are as expected. -The patient reports no pain or tenderness in his lower extremities. 04/15 -Consulted telephonically yesterday, telephonically, with hematology. They are following, and agree that the patient's current lab values are in the target range. Several medication adjustments are being planned, and the patient remains asymptomatic. 04/16 -PT INR 26.7 and 2.8 respectively today 04/17 -INR 2.9 today 04/22 -The patient's INR levels have been steadily rising and this morning's value was 3.5. The addition of sertraline to the patient's medication regimen may be impacting upon his coagulation values. The patient remains asymptomatic, in terms of evidence of a pulmonary embolism. We will hold his daily warfarin level today, repeat the warfarin coagulation studies in the morning, and will plan to resume warfarin (at the half dose) on Thursday with a full dose on Thursday, as indicated by his lab values. (6) Hyperlipidemia: 04/05 -continue home statin. 04/09 and 04/10 aiming for pt to take med but comfortable with pt refusing this med at current time if helps him obtain his other medications, aim is for improved meed compliance occur as psychiatrically improves, lexy since currently pt pill load a factor in pt compliance Inventory Assets Strengths: Educated, supportive family Needs: Compliance with treatment, increase community supports Risk Factors Assessment Male: Yes : Yes Do You Have Access To A Gun?: No Health Problems: Yes Mental Health Diagnoses: Yes Substance Use Disorders: No Previous Attempt: Yes Family History of Suicide: No Previous Psychiatric Hospitalization: Yes Hopelessness: Yes Smoker: No Protective Factors Assessment [employer] Beliefs: No : No Responsible for Young Children: No Employed: No Stable Relationships: Yes Supportive Family: Yes Good Rapport with Provider: No Interval History Identifying Information YINKA ROMERO is a 59-year-old M who currently lives alone in an [place], has a history of depression with psychosis, generalized anxiety disorder, treatment nonadherence and was on an involuntary outpatient commitment, and was admitted on 04/04/19 16:39 on a 302 involuntary commitment for depression with psychosis, treatment nonadherence, and inability to care for himself. He is on a 304 commitment as of 04/08/19. Chief Complaint "I'm not well". Review of Systems Sleep Information Total Hours of Sleep: 7.25 Sleep Comments: pt on q-15 minute checks Meal Information Percent Meal Consumed - Breakfast: 100 Percent Meal Consumed - Lunch: 100 Percent Meal Consumed - Dinner: 100 Nutrition Comment: documented from the patient meal record Subjective Subjective Patient was seen & assessed and interval progress reviewed with treatment team. I met individually with the patient in order to assess his current mental status, evaluate his response to treatment, coordinate any necessary changes in the patient's treatment regimen with the patient, and address issues and concerns that may arise. The patient begins by telling me that he is not doing very well. Specifically, he complains of persistent headache and unspecified "complications"associated with "diabetes." (The patient does not have diabetes.) He denies chest pain and shortness of breath. Today, the patient tells me that he does not believe that medications will resolve his depression and that the depression is "too far gone" to respond to treatment. However, he does allow that he is feeling "a little better" in terms of his depression and he attributes this to the medications. As he has in the past, expresses concern about the number of pills that he is required to take, but he was able to focus while I explained that the important issue was not the number of pills but the dosages of the pills that he is taking. The patient did indicate understanding and said "yes, I guess you are right." Indicates that he is tolerating medications well and offers no complaints. Today, he was able to focus on a number of issues that are not related to illness, and with some pleasure he discussed his past athletic endeavors which included baseball, softball, basketball, track, and bowling. He claims to have bowled a perfect 300 score, and often had scores above 250. He also talked with some enthusiasm about a knocker out who he tells he was such a "great" picture that he could successfully strike somebody out from a position at second base or even beyond. The patient's INR this morning was 3.5. Physical Exam Psychiatric Orientation: alert and oriented x 3 Apperance: appropriately groomed Eye Contact: + fair eye contact Motor Behavior: no abnormal motor movements Speech: normal rate/rhythm/volume of speech Affect: + depressed affect and + anxious affect The patient's affect brightens considerably over the course of the interview and was fairly bright and animated when he was discussing subjects other than his health. Mood: + depressed mood The patient does say that he is feeling better in terms of his depression. Thought Process: + perseveration Thought Content: + delusions (Although today the patient did not say that he believes that he is dying, he does say that he feels as if he "might" "soon" because of his declining health. He continues to insist that he has diabetes and rejects assertions and data that should show him that he does not have diabetes.) Suicidal Thoughts: denies suicidal thoughts Homicidal Thoughts: denies homicidal thoughts Hallucinations: no auditory hallucinations Cognition: recent memory grossly intact, remote memory grossly intact and language grossly intact Estimated Intelligence: + above average estimated intelligence Insight: + impaired insight Judgement: + limited judgement Vital Signs (Past 24 Hours) Last Vital Signs Temp 36.7 C 04/22/19 07:02 Pulse 72 04/22/19 07:03 Resp 18 04/22/19 07:02 BP 121/81 04/22/19 07:03 Pulse Ox 99 04/09/19 06:00 Results & Data Laboratory Results Laboratory Results - last 24 hr 04/22/19 04/22/19 08:20 08:20 PT 32.4 H INR 3.5 H Creatinine 1.08 Est Cr Clr Drug Dosing 86.1 Est GFR ( Amer) 85.4 Est GFR (Non-Af Amer) 73.7 Current Inpatient Medications Current Inpatient Medications: Current Inpatient Medications Acetaminophen (Tylenol) 650 mg PO Q4H PRN PRN Reason: Headache or Minor Fever Stop: 05/04/19 17:30 Last Admin: 04/21/19 23:11 Dose: 650 mg Documented by: Al Hydrox/Mg Hydrox/Simethicone (Maalox) 30 ml PO Q4H PRN PRN Reason: GI Upset Stop: 05/04/19 17:30 Aripiprazole (Abilify) 30 mg PO QAM [facility] Stop: 05/22/19 08:59 Last Admin: 04/22/19 08:35 Dose: 30 mg Documented by: Hydroxyzine HCl (Vistaril) 50 mg PO HSZ PRN PRN Reason: Insomnia Stop: 05/04/19 17:30 Hydroxyzine HCl (Vistaril) 25 mg PO Q4H PRN PRN Reason: Anxiety Stop: 05/04/19 17:30 Ibuprofen (Motrin) 600 mg PO Q8H PRN PRN Reason: Pain Stop: 05/21/19 10:12 Magnesium Hydroxide (Milk Of Magnesia) 30 ml PO DAILY PRN PRN Reason: Constipation Stop: 05/04/19 17:30 Olanzapine (Zyprexa) 10 mg IM DAILY PRN PRN Reason: REFUSE ABILIFY Stop: 05/14/19 11:44 Quetiapine Fumarate (Seroquel) 200 mg PO HS PRN PRN Reason: Sleep Stop: 05/14/19 11:39 Sertraline HCl (Zoloft) 200 mg PO QAM [facility] Stop: 05/05/19 08:59 Last Admin: 04/22/19 08:35 Dose: 200 mg Documented by: Simvastatin (Zocor) 40 mg PO HS [facility] Stop: 05/04/19 21:59 Last Admin: 04/21/19 21:35 Dose: 40 mg Documented by: Sodium Chloride ([place] Nasal) 1 - 2 sprays NA PRN PRN PRN Reason: Nasal Dryness/Congestion Stop: 05/04/19 17:30 Trazodone HCl (Desyrel) 100 mg PO HS PRN PRN Reason: Sleep Stop: 05/04/19 17:33 Warfarin Sodium (Coumadin) 10 mg PO [id number]@1600 [facility] Stop: 05/14/19 15:59 Last Admin: 04/21/19 16:46 Dose: 10 mg Documented by: Warfarin Sodium (Coumadin) 5 mg PO [email or web address]@1600 SETH Stop: 05/17/19 15:59 Last Admin: 04/17/19 16:00 Dose: 5 mg Documented by: Mental Health & Subst Abuse Tx Psychiatrist Name of Psychiatrist: [facility] - Dr. Harrington Psychiatrist's Time of Appointment with Psychiatrist: Dr Todd Psychiatric Appointment Comment: [address], [place] [address] Therapist Name of Therapist: [facility] - Juan Menendez ACSW Therapist's Therapy Appointment Comment: [address] [facility], [place] Database Manager Name of Database Manager: [employer] - Av Perez Phone Number for Database Manager: [phone] Case Management Appointment Comment: [address] [facility], [address], [place] Post Discharge Appointments Primary Care Physician Name Of Family Doctor: [facility] - Dr. Catalina Todd Primary Care Provider Appointment Comment: [address] [place] [id number] Contact Information Discharge Discharge Address: [address] [place] [address] CPT Code CPT Code 11890 (1) DVT (deep venous thrombosis) DVT location: lower extremity (2) Cellulitis Site of cellulitis: unspecified site Qualified Code(s): L03.90 - Cellulitis, unspecified (3) Depression Active/Remission status: currently active Depression Type: major depressive disorder Major depression episode severity: severe Major depression recurrence: recurrent Psychotic features: with psychotic features Qualified Code(s): F33.3 - Major depressive disorder, recurrent, severe with psychotic symptoms (4) Hyperlipidemia Hyperlipidemia type: unspecified Qualified Code(s): E78.5 - Hyperlipidemia, unspecified
[2019-04-22] MEDS: SIMVASTATIN 40 MG TAB PO SCH (21:06)
[2019-04-23] MEDS: SERTRALINE HCL 100 MG TABLET PO SCH (08:09)
[2019-04-23] MEDS: ARIPiprazole 10 MG TAB PO SCH (08:09)
[2019-04-23 08:23] LABS: Prothrombin Time 28.2 Seconds (9.0-12.0)
--- NOTE | 2019-04-23 12:19 | Psychiatric Progress Note ---
Date of Service April 23, 2019 Impression / Recommendations Surya Howard is a 59-year-old single male with a history of severe psychotic depression and generalized anxiety, as well as long-standing treatment nonadherence which has resulted in multiple involuntary outpatient commitments, who was just discharged from our unit 2 weeks prior to being hospitalized medically for DVT and lower extremity cellulitis in the context of medication nonadherence at home. The patient's has been treated with aripiprazole and sertraline for his psychotic depression. The dose of aripiprazole has been titrated to a dose of 30 mg a day, and the dose of sertraline has been titrated to a dose of 200 mg a day. The patient's INR has been rising fairly steadily while hospitalized. (1) Depression: 04/05 -continue sertraline 200 mg daily and quetiapine 50 mg at bedtime, which he is intermittently refusing. If he does not become more compliant with oral medications, we will pursue medications over objection, as his psychotic depression is unlikely to remit without medication, and he has responded well to these medications in the past. -Get records from outpatient psychiatrist, and coordinate care with his outpatient therapist and bottle caser. -Brother, Amie, is his power of ip technology transactions attorney we will enlist his assistance with medical decision making as the patient currently lacks capacity to refuse the recommended treatment. -Encourage patient to be out of bed during the day and participating in groups and therapy. Consider locking his door during group time if he is unable to do this on his own. -He was on an involuntary outpatient commitment, so we will file for a conversion hearing to convert to 304 involuntary treatment. 04/06 -patient has refused sertraline the past 2 days, and although he took quetiapine the first night, he refused it last night. He is refusing all groups, has not bathed, and is refusing to eat and less staff bring food to his room. -We will place him in a medically necessary private room due to severity of mood and psychotic symptoms, and request staff to lock his door during group time him to be more engaged in treatment. -Staff contacted the patient's [id number], who clarified that the patient does not actually have a power of ip technology transactions attorney, although this has been documented on admission here. She reported the family is frustrated and concerned with the patient's lack of ability to care for his mental and physical needs. The family has been exploring supportive living, specifically [facility]. -Patient's bottle caser, Av Perez, will come in for a meeting tomorrow. 04/07 -improved medication compliance with staff support; continue sertraline 200 mg daily and increase quetiapine to 100 mg at bedtime. -customer marketing manager, Av Perez, is coming to meet with patient today. 04/08 - Continue sertraline 200mg and increase quetiapine to 150mg HS. -On 304 commitment. Continue to encourage him to sign [facility]AY[facility] for [facility] 04/09 -pt refused quetiapine last night, having dose tonight be 1/2 of 300mg pill of quetiapine to help lower pill burden and might hold his lipid med tonight as well to help improve likelihood of pt taking his atypical antipsychotic dose that seems to be medication most needed at this time. goal is to titrate up quetiapine. Pharmacy has 50,100,200, and 300mg size pills, (in Xr form there are 150mg size, if switching to xr in future would advise dosing around 8pm. addressed pt delusional thinking and attempted reality testing. 04/10 took seroquel 150mg dose on 04/09 and noticing some improvement today pt might be improving some and might be more open to treatment ceased MNPR at this time 04/11 - Continue sertraline 200mg daily - will titration quetiapine to 200mg daily, can give previous dose of 150mg (1/2 of 300mg tablet) if refuses - Having a rather difficult day today, limited engagement in programming, continues to believe he is dying 04/12 - Continue as above. Pt refused quetiapine last evening, to receive titrated dose of 200mg tonight if compliant - Had a decent morning, though returned to fixation on dying by the afternoon 04/13 -Continue sertraline, has been taking the 200 mg dose for the past 7 days. -Continues to intermittently refuse quetiapine, only taking it on 50% of days in the past week, and received first dose of 200 mg at bedtime last night. He is unwilling to discuss other atypical antipsychotics and remains floridly delusional without insight. He lacks capacity to refuse treatment recommendations for an antipsychotic, as 1 of his delusions is that he has diabetes and is going to at any moment, so believes any treatment is futile. Recommend medications over objection, with a trial of either aripiprazole or paliperidone to target psychotic symptoms, with an IM of olanzapine for refusal of oral medication. If he responds well and tolerates the oral antipsychotic, will then transition him to the long-acting injectable form. We will asked Dr. Delarosa to see him tomorrow for a second opinion. 04/14 - The patient continues to intermittently refuse quetiapine, only taking it on 50% of days in the past week. Today, he tells me that he will refuse quetiapine and all medications, stating, "What's the use? I'm dying." He is unwilling to discuss other antipsychotics and I agree with Dr. Vann's finding that he remains floridly delusional without insight. He lacks capacity to refuse treatment recommendations for an antipsychotic, as one of his delusions is that he has diabetes (he doesn't) and is going to "maybe right now." Within this context he tells me that treatment is futile and he will refuse to take what we are prescribing to him.. I endorse the recommendation for medications over objection. I have ordered aripiprazole 10 mg daily by mouth to treat the patient's psychosis, and I have ordered olanzapine 10 mg IM for refusal of p.o. aripiprazole. Without consistent application of antipsychotic medications at the appropriate dose, it can reasonably be expected that the patient will remain dangerous to himself to the degree that inpatient psychiatric hospitalization will remain medically necessary. 04/15 -Quetiapine was discontinued in favor of aripiprazole, with an order for olanzapine IM over objection if the patient declines aripiprazole. He did, in fact, voluntarily take aripiprazole 10 mg yesterday and this morning, and reports that he did not have any difficulty tolerating it, either yesterday, or this morning. -He has been refusing sertraline. An issue may be that he may not have realized that sertraline and Zoloft are the same medication. Today, he tells me that he has a past history of febrile response to Zoloft. I have explained to him that our finding is that he is suffering from a major depression that has caused him to lose touch with certain aspects of reality and, for that reason, we feel very strongly that he must take an antidepressant medication as part of recovery. The patient tells us that he will now agree to take sertraline (Zoloft) but this remains to be seen. 04/16 -So far he has been compliant with increased dose of Abilify. Appears he would likely benefit from long-acting injectable if he continues to tolerate well 04/17 -Appears more depressive today. -Remains delusionally preoccupied -Increase Abilify to 20 mg daily. Has been compliant 04/18 -Continue aripiprazole and sertraline, and discontinue lorazepam. Encourage patient to be out of bed and participating in treatment. 04/19 - Continue as above - Pt reporting improvement in headache after receiving a heating pad - will continue to monitor. Possible etiology includes current environment (dry air, bright lights, ect.), medication side effect, or other medical concern. Will continue to observe for now, consider hospitalist bentley given his anticoagulation history to determine if NSAIDs could be appropriately considered in his case for intermittent and limited use 04/20 - Continue current medication regimen - Continue symptomatic treatment for headache, reporting Tylenol is effective although he is requiring routine dosing 04/21 - Titrating aripiprazole to 30mg qAM starting tomorrow; continue sertraline 200mg daily. Pt continues to be focused on number of pills being given to him, but this is difficult to rectify based on available pharmacy dosing of ordered medications - Tylenol remains helpful for headache symptoms, but symptoms return throughout the day - Discussed persistent reports of headache with hospitalist - felt to be ok to offer ibuprofen prn for headache symptoms despite anticoagulation status; continue to monitor - Anticipate meeting with [facility] representatives next week 04/22 -The patient does report improvement in his depression, although he also says that he feels that his depression is "so severe" that medications are unlikely to be more than a "drop in the bucket." -The patient's affect is noticeably brighter and more animated. Today, he laughed several times, appropriately, during our encounter. -The plan is to continue sertraline 200 mg daily in combination with aripiprazole 30 mg daily. -We are also emphasizing reality testing and illness teaching through individual and group therapies. The patient remains active and activity therapy and tells us that this is 1 of his favorite parts of hospitalization. (2) Catatonia: 04/05 -continue Lorazepam 2 mg twice daily and taper over hospital stay. Continue to treat underlying medical conditions as below. 04/06 -decrease Lorazepam to 1 mg twice daily, as he is intermittently refusing doses and it has not been overly helpful. 04/13 -patient has been refusing the at bedtime dose of lorazepam, so will discontinue it. The morning dose can likely be discontinued prior to discharge. 04/14 -The patient is poorly responsive, but not catatonic at this point. 04/18 -discontinue lorazepam, as patient retreating to his bed and want to minimize sedating effects. (3) Generalized anxiety disorder: 04/05 -continue SSRI and lorazepam as above, offer hydroxyzine as needed for anxiety. Consider resuming buspirone if indicated. 04/14 -The patient's anxious distress at this point seems primarily attributable to his delusional believes that he is moribund. Our plan is to continue to aggressively treat his psychosis and reassess anxious distress once the patient's psychotic features have resolved. 04/15 -The patient appears to be somewhat less anxious today, a circumstance that may be attributable to aripiprazole. Hopefully, the patient will also begin to take sertraline as prescribed. 04/22 -The patient appears to be less anxious today and tells us that he is feeling more relaxed and less upset. (4) Cellulitis: 04/05 -complete course of Keflex, last dose 04/08/2019. Infection is resolving. 04/22 -Infection appears to have resolved. (5) DVT (deep venous thrombosis): 04/05 -continue Coumadin 5 mg daily, daily PT/INR, and Lovenox until INR is therapeutic. Coordinate care with Dr. Loyola, who sees him at the [facility]. 04/07 -INR is 1.2 today, continue Coumadin and Lovenox. Coordinate with Dr. Loyola 04/11 - Reviewed consultation recommendations - discussed recs with Dr. Loyola via phone - Orders provided for patient to receive 15mg of warfarin today, then a schedule of 10mg daily SuTuThSa, and 5mg daily MWF - Recommended that enoxaparin continue until his INR is therapeutic for two days (two day overlap) - Dr. Loyola to continue to follow 04/14 -Anticoagulation therapy continues. PT and PTT values are as expected. -The patient reports no pain or tenderness in his lower extremities. 04/15 -Consulted telephonically yesterday, telephonically, with hematology. They are following, and agree that the patient's current lab values are in the target range. Several medication adjustments are being planned, and the patient remains asymptomatic. 04/16 -PT INR 26.7 and 2.8 respectively today 04/17 -INR 2.9 today 04/22 -The patient's INR levels have been steadily rising and this morning's value was 3.5. The addition of sertraline to the patient's medication regimen may be impacting upon his coagulation values. The patient remains asymptomatic, in terms of evidence of a pulmonary embolism. We will hold his daily warfarin level today, repeat the warfarin coagulation studies in the morning, and will plan to resume warfarin (at the half dose) on Thursday with a full dose on Thursday, as indicated by his lab values. (6) Hyperlipidemia: 04/05 -continue home statin. 04/09 and 04/10 aiming for pt to take med but comfortable with pt refusing this med at current time if helps him obtain his other medications, aim is for improved meed compliance occur as psychiatrically improves, lexy since currently pt pill load a factor in pt compliance Inventory Assets Strengths: Educated, supportive family Needs: Compliance with treatment, increase community supports Risk Factors Assessment Male: Yes : Yes Do You Have Access To A Gun?: No Health Problems: Yes Mental Health Diagnoses: Yes Substance Use Disorders: No Previous Attempt: Yes Family History of Suicide: No Previous Psychiatric Hospitalization: Yes Hopelessness: Yes Smoker: No Protective Factors Assessment Baptism Beliefs: No : No Responsible for Young Children: No Employed: No Stable Relationships: Yes Supportive Family: Yes Good Rapport with Provider: No Interval History Identifying Information YINKA ROMERO is a 59-year-old M who currently lives alone in an [place], has a history of depression with psychosis, generalized anxiety disorder, treatment nonadherence and was on an involuntary outpatient commitment, and was admitted on 04/04/19 16:39 on a 302 involuntary commitment for depression with psychosis, treatment nonadherence, and inability to care for himself. He is on a 304 commitment as of 04/08/19. Chief Complaint "yeah, whats the point". Review of Systems Sleep Information Total Hours of Sleep: 5.75 Sleep Comments: pt on q-15 minute checks Meal Information Percent Meal Consumed - Breakfast: 100 Percent Meal Consumed - Lunch: 100 Percent Meal Consumed - Dinner: 100 Nutrition Comment: documented from the patient meal record Subjective Subjective Patient was seen & assessed and interval progress reviewed with nursing and social work. still difficult to engage in groups, views himself as hopeless case, willing to continue treatment pending housing alternative. Will meet with [facility] next week. denies med concerns thought reportedly still very focussed on DM per staff though doesn't affect his dietary choices. has been supratherapeutic on INR, management per [facility] clinic. Physical Exam Psychiatric The patient presented as alert and cooperative. The patient was casually dressed and groomed. Eye contact was fair. No psychomotor restlessness or agitation was noted. Speech was normal in rate, rhythm, and volume. Affect was mood congruent. The patients mood appeared depressed. Thought processes were perseverative. Thought content/perception was reality based. The patient denied suicidal and homicidal ideation. The patient denied hallucinations and did not appear to be responding to internal stimuli. Vital Signs (Past 24 Hours) Last Vital Signs Temp 36.7 C 04/23/19 06:00 Pulse 71 04/23/19 06:55 Resp 18 04/23/19 06:00 BP 142/86 H 04/23/19 06:55 Pulse Ox 99 04/09/19 06:00 Results & Data Laboratory Results Laboratory Results - last 24 hr 04/23/19 07:49 PT 28.2 H INR 3.0 H Current Inpatient Medications Current Inpatient Medications: Current Inpatient Medications Acetaminophen (Tylenol) 650 mg PO Q4H PRN PRN Reason: Headache or Minor Fever Stop: 05/04/19 17:30 Last Admin: 04/21/19 23:11 Dose: 650 mg Documented by: Al Hydrox/Mg Hydrox/Simethicone (Maalox) 30 ml PO Q4H PRN PRN Reason: GI Upset Stop: 05/04/19 17:30 Aripiprazole (Abilify) 30 mg PO QAM SETH Stop: 05/22/19 08:59 Last Admin: 04/23/19 08:09 Dose: 30 mg Documented by: Hydroxyzine HCl (Vistaril) 50 mg PO HSZ PRN PRN Reason: Insomnia Stop: 05/04/19 17:30 Hydroxyzine HCl (Vistaril) 25 mg PO Q4H PRN PRN Reason: Anxiety Stop: 05/04/19 17:30 Ibuprofen (Motrin) 600 mg PO Q8H PRN PRN Reason: Pain Stop: 05/21/19 10:12 Magnesium Hydroxide (Milk Of Magnesia) 30 ml PO DAILY PRN PRN Reason: Constipation Stop: 05/04/19 17:30 Olanzapine (Zyprexa) 10 mg IM DAILY PRN PRN Reason: REFUSE ABILIFY Stop: 05/14/19 11:44 Quetiapine Fumarate (Seroquel) 200 mg PO HS PRN PRN Reason: Sleep Stop: 05/14/19 11:39 Sertraline HCl (Zoloft) 200 mg PO QAM SETH Stop: 05/05/19 08:59 Last Admin: 04/23/19 08:09 Dose: 200 mg Documented by: Simvastatin (Zocor) 40 mg PO HS SETH Stop: 05/04/19 21:59 Last Admin: 04/22/19 21:06 Dose: 40 mg Documented by: Sodium Chloride ([place] Nasal) 1 - 2 sprays NA PRN PRN PRN Reason: Nasal Dryness/Congestion Stop: 05/04/19 17:30 Trazodone HCl (Desyrel) 100 mg PO HS PRN PRN Reason: Sleep Stop: 05/04/19 17:33 Warfarin Sodium (Coumadin) 10 mg PO [id number]@1600 SETH Stop: 05/14/19 15:59 Last Admin: 04/21/19 16:46 Dose: 10 mg Documented by: Warfarin Sodium (Coumadin) 5 mg PO Antoine@1600 SETH Stop: 05/17/19 15:59 Last Admin: 04/17/19 16:00 Dose: 5 mg Documented by: Mental Health & Subst Abuse Tx Psychiatrist Name of Psychiatrist: [facility] - Dr. Harrington Psychiatrist's Time of Appointment with Psychiatrist: Dr Todd Psychiatric Appointment Comment: [address], [place] [address] Therapist Name of Therapist: [facility] - Juan Menendez [facility] Therapist's Therapy Appointment Comment: [address] [facility] Soda Dispenser Name of Soda Dispenser: [employer] - Av Perez Phone Number for Soda Dispenser: [phone] Case Management Appointment Comment: [address] [facility], [address], [place] Discharge Appointments Primary Care Physician Name Of Family Doctor: [facility] - Dr. Catalina Todd Primary Care Provider Appointment Comment: [address] [place] [address] [place] [address] Contact Information Discharge Discharge [address]: [address] [place], [place] [address] [id number] CPT Code CPT Code 50291 (1) Depression Depression Type: major depressive disorder Major depression recurrence: recurrent Active/Remission status: currently active Major depression episode severity: severe Psychotic features: with psychotic features Qualified Code(s): F33.3 - Major depressive disorder, recurrent, severe with psychotic symptoms (2) Cellulitis Site of cellulitis: unspecified site Qualified Code(s): L03.90 - Cellulitis, unspecified (3) DVT (deep venous thrombosis) DVT location: lower extremity (4) Hyperlipidemia Hyperlipidemia type: unspecified Qualified Code(s): E78.5 - Hyperlipidemia, unspecified
[2019-04-23] MEDS: ACETAMINOPHEN 325 MG TAB PO PRN (18:16)
[2019-04-23] MEDS: SIMVASTATIN 40 MG TAB PO SCH (21:49)
[2019-04-24 08:30] LABS: INR 2.2 (0.9-1.1); Prothrombin Time 21.7 Seconds (9.0-12.0)
[2019-04-24] MEDS: ARIPiprazole 10 MG TAB PO SCH (08:33)
[2019-04-24] MEDS: SERTRALINE HCL 100 MG TABLET PO SCH (08:33)
--- NOTE | 2019-04-24 11:36 | Psychiatric Progress Note ---
Date of Service April 24, 2019 Impression / Recommendations Surya Howard is a 59-year-old single male with a history of severe psychotic depression and generalized anxiety, as well as long-standing treatment nonadherence which has resulted in multiple involuntary outpatient commitments, who was just discharged from our unit 2 weeks prior to being hospitalized medically for DVT and lower extremity cellulitis in the context of medication nonadherence at home. The patient's has been treated with aripiprazole and sertraline for his psychotic depression. The dose of aripiprazole has been titrated to a dose of 30 mg a day, and the dose of sertraline has been titrated to a dose of 200 mg a day. (1) Depression: 04/05 -continue sertraline 200 mg daily and quetiapine 50 mg at bedtime, which he is intermittently refusing. If he does not become more compliant with oral medications, we will pursue medications over objection, as his psychotic depression is unlikely to remit without medication, and he has responded well to these medications in the past. -Get records from outpatient psychiatrist, and coordinate care with his outpatient therapist and field case manager. -Brother, Amie, is his power of cargo bracer we will enlist his assistance with medical decision making as the patient currently lacks capacity to refuse the recommended treatment. -Encourage patient to be out of bed during the day and participating in groups and therapy. Consider locking his door during group time if he is unable to do this on his own. -He was on an involuntary outpatient commitment, so we will file for a conversion hearing to convert to 304 involuntary treatment. 04/06 -patient has refused sertraline the past 2 days, and although he took quetiapine the first night, he refused it last night. He is refusing all groups, has not bathed, and is refusing to eat and less staff bring food to his room. -We will place him in a medically necessary private room due to severity of mood and psychotic symptoms, and request staff to lock his door during group time him to be more engaged in treatment. -Staff contacted the patient's [id number], who clarified that the patient does not actually have a power of cargo bracer, although this has been documented on admission here. She reported the family is frustrated and concerned with the patient's lack of ability to care for his mental and physical needs. The family has been exploring supportive living, specifically [facility]. -Patient's field case manager, Av Perez, will come in for a meeting tomorrow. 04/07 -improved medication compliance with staff support; continue sertraline 200 mg daily and increase quetiapine to 100 mg at bedtime. -nurse case manager, Av Perez, is coming to meet with patient today. 04/08 - Continue sertraline 200mg and increase quetiapine to 150mg HS. -On 304 commitment. Continue to encourage him to sign YAYA for [facility] 04/09 -pt refused quetiapine last night, having dose tonight be 1/2 of 300mg pill of quetiapine to help lower pill burden and might hold his lipid med tonight as well to help improve likelihood of pt taking his atypical antipsychotic dose that seems to be medication most needed at this time. goal is to titrate up quetiapine. Pharmacy has 50,100,200, and 300mg size pills, (in Xr form there are 150mg size, if switching to xr in future would advise dosing around 8pm. addressed pt delusional thinking and attempted reality testing. 04/10 took seroquel 150mg dose on 04/09 and noticing some improvement today pt might be improving some and might be more open to treatment ceased MNPR at this time 04/11 - Continue sertraline 200mg daily - will titration quetiapine to 200mg daily, can give previous dose of 150mg (1/2 of 300mg tablet) if refuses - Having a rather difficult day today, limited engagement in programming, continues to believe he is dying 04/12 - Continue as above. Pt refused quetiapine last evening, to receive titrated dose of 200mg tonight if compliant - Had a decent morning, though returned to fixation on dying by the afternoon 04/13 -Continue sertraline, has been taking the 200 mg dose for the past 7 days. -Continues to intermittently refuse quetiapine, only taking it on 50% of days in the past week, and received first dose of 200 mg at bedtime last night. He is unwilling to discuss other atypical antipsychotics and remains floridly delusional without insight. He lacks capacity to refuse treatment recommendations for an antipsychotic, as 1 of his delusions is that he has diabetes and is going to at any moment, so believes any treatment is futile. Recommend medications over objection, with a trial of either aripiprazole or paliperidone to target psychotic symptoms, with an IM of olanzapine for refusal of oral medication. If he responds well and tolerates the oral antipsychotic, will then transition him to the long-acting injectable form. We will asked Dr. Delarosa to see him tomorrow for a second opinion. 04/14 - The patient continues to intermittently refuse quetiapine, only taking it on 50% of days in the past week. Today, he tells me that he will refuse quetiapine and all medications, stating, "What's the use? I'm dying." He is unwilling to discuss other antipsychotics and I agree with Dr. Vann's finding that he remains floridly delusional without insight. He lacks capacity to refuse treatment recommendations for an antipsychotic, as one of his delusions is that he has diabetes (he doesn't) and is going to "maybe right now." Within this context he tells me that treatment is futile and he will refuse to take what we are prescribing to him.. I endorse the recommendation for medications over objection. I have ordered aripiprazole 10 mg daily by mouth to treat the patient's psychosis, and I have ordered olanzapine 10 mg IM for refusal of p.o. aripiprazole. Without consistent application of antipsychotic medications at the appropriate dose, it can reasonably be expected that the patient will remain dangerous to himself to the degree that inpatient psychiatric hospitalization will remain medically necessary. 04/15 -Quetiapine was discontinued in favor of aripiprazole, with an order for olanzapine IM over objection if the patient declines aripiprazole. He did, in fact, voluntarily take aripiprazole 10 mg yesterday and this morning, and reports that he did not have any difficulty tolerating it, either yesterday, or this morning. -He has been refusing sertraline. An issue may be that he may not have realized that sertraline and Zoloft are the same medication. Today, he tells me that he has a past history of febrile response to Zoloft. I have explained to him that our finding is that he is suffering from a major depression that has caused him to lose touch with certain aspects of reality and, for that reason, we feel very strongly that he must take an antidepressant medication as part of recovery. The patient tells us that he will now agree to take sertraline (Zoloft) but this remains to be seen. 04/16 -So far he has been compliant with increased dose of Abilify. Appears he would likely benefit from long-acting injectable if he continues to tolerate well 04/17 -Appears more depressive today. -Remains delusionally preoccupied -Increase Abilify to 20 mg daily. Has been compliant 04/18 -Continue aripiprazole and sertraline, and discontinue lorazepam. Encourage patient to be out of bed and participating in treatment. 04/19 - Continue as above - Pt reporting improvement in headache after receiving a heating pad - will continue to monitor. Possible etiology includes current environment (dry air, bright lights, ect.), medication side effect, or other medical concern. Will continue to observe for now, consider hospitalist bentley given his anticoagulation history to determine if NSAIDs could be appropriately considered in his case for intermittent and limited use 04/20 - Continue current medication regimen - Continue symptomatic treatment for headache, reporting Tylenol is effective although he is requiring routine dosing 04/21 - Titrating aripiprazole to 30mg qAM starting tomorrow; continue sertraline 200mg daily. Pt continues to be focused on number of pills being given to him, but this is difficult to rectify based on available pharmacy dosing of ordered medications - Tylenol remains helpful for headache symptoms, but symptoms return throughout the day - Discussed persistent reports of headache with hospitalist - felt to be ok to offer ibuprofen prn for headache symptoms despite anticoagulation status; continue to monitor - Anticipate meeting with [facility] representatives next week 04/22 -The patient does report improvement in his depression, although he also says that he feels that his depression is "so severe" that medications are unlikely to be more than a "drop in the bucket." -The patient's affect is noticeably brighter and more animated. Today, he laughed several times, appropriately, during our encounter. -The plan is to continue sertraline 200 mg daily in combination with aripiprazole 30 mg daily. -We are also emphasizing reality testing and illness teaching through individual and group therapies. The patient remains active and activity therapy and tells us that this is 1 of his favorite parts of hospitalization. (2) Catatonia: 04/05 -continue Lorazepam 2 mg twice daily and taper over hospital stay. Continue to treat underlying medical conditions as below. 04/06 -decrease Lorazepam to 1 mg twice daily, as he is intermittently refusing doses and it has not been overly helpful. 04/13 -patient has been refusing the at bedtime dose of lorazepam, so will discontinue it. The morning dose can likely be discontinued prior to discharge. 04/14 -The patient is poorly responsive, but not catatonic at this point. 04/18 -discontinue lorazepam, as patient retreating to his bed and want to minimize sedating effects. (3) Generalized anxiety disorder: 04/05 -continue SSRI and lorazepam as above, offer hydroxyzine as needed for anxiety. Consider resuming buspirone if indicated. 04/14 -The patient's anxious distress at this point seems primarily attributable to his delusional believes that he is moribund. Our plan is to continue to aggressively treat his psychosis and reassess anxious distress once the patient's psychotic features have resolved. 04/15 -The patient appears to be somewhat less anxious today, a circumstance that may be attributable to aripiprazole. Hopefully, the patient will also begin to take sertraline as prescribed. 04/22 -The patient appears to be less anxious today and tells us that he is feeling more relaxed and less upset. (4) Cellulitis: 04/05 -complete course of Keflex, last dose 04/08/2019. Infection is resolving. 04/22 -Infection appears to have resolved. (5) DVT (deep venous thrombosis): 04/05 -continue Coumadin 5 mg daily, daily PT/INR, and Lovenox until INR is therapeutic. Coordinate care with Dr. Loyola, who sees him at the anticoagulation clinic. 04/07 -INR is 1.2 today, continue Coumadin and Lovenox. Coordinate with Dr. Loyola 04/11 - Reviewed consultation recommendations - discussed recs with Dr. Loyola via phone - Orders provided for patient to receive 15mg of warfarin today, then a sched ule of 10mg daily SuTuThSa, and 5mg daily MWF - Recommended that enoxaparin continue until his INR is therapeutic for two days (two day overlap) - Dr. Loyola to continue to follow 04/14 -Anticoagulation therapy continues. PT and PTT values are as expected. -The patient reports no pain or tenderness in his lower extremities. 04/15 -Consulted telephonically yesterday, telephonically, with hematology. They are following, and agree that the patient's current lab values are in the target range. Several medication adjustments are being planned, and the patient remains asymptomatic. 04/16 -PT INR 26.7 and 2.8 respectively today 04/17 -INR 2.9 today 04/22 -The patient's INR levels have been steadily rising and this morning's value was 3.5. The addition of sertraline to the patient's medication regimen may be impacting upon his coagulation values. The patient remains asymptomatic, in terms of evidence of a pulmonary embolism. We will hold his daily warfarin level today, repeat the warfarin coagulation studies in the morning, and will plan to resume warfarin (at the half dose) on Thursday with a full dose on Thursday, as indicated by his lab values. 04/24 --clarification of lab frequency with coag clinic tomorrow 04/25, scheduled for 5 mg Coumadin this pm per Dr. Loyola. (6) Hyperlipidemia: 04/05 -continue home statin. 04/09 and 04/10 aiming for pt to take med but comfortable with pt refusing this med at current time if helps him obtain his other medications, aim is for improved meed compliance occur as psychiatrically improves, lexy since currently pt pill load a factor in pt compliance Inventory Assets Strengths: Educated, supportive family Needs: Compliance with treatment, increase community supports Risk Factors Assessment Male: Yes : Yes Do You Have Access To A Gun?: No Health Problems: Yes Mental Health Diagnoses: Yes Substance Use Disorders: No Previous Attempt: Yes Family History of Suicide: No Previous Psychiatric Hospitalization: Yes Hopelessness: Yes Smoker: No Protective Factors Assessment Congregation Beliefs: No : No Responsible for Young Children: No Employed: No Stable Relationships: Yes Supportive Family: Yes Good Rapport with Provider: No Interval History Identifying Information YINKA ROMERO is a 59-year-old M who currently lives alone in an [place], has a history of depression with psychosis, generalized anxiety disorder, treatment nonadherence and was on an involuntary outpatient commitment, and was admitted on 04/04/19 16:39 on a 302 involuntary commitment for depression with psychosis, treatment nonadherence, and inability to care for himself. He is on a 304 commitment as of 04/08/19. Chief Complaint "I still feel like I'm dying". Review of Systems Sleep Information Total Hours of Sleep: 10 Sleep Comments: 4 hours on evenings and 6 hours on nights. Meal Information Percent Meal Consumed - Breakfast: 100 Percent Meal Consumed - Lunch: 100 Percent Meal Consumed - Dinner: 100 Nutrition Comment: documented from the patient meal record Subjective Subjective Patient was seen & assessed and interval progress reviewed with nursing and social work. not participating much in programming. focussed on his meeting with personal alf. He is upset about frequency of ongoing blood draws. Physical Exam Psychiatric Orientation: alert Apperance: appropriately dressed and appropriately groomed Eye Contact: + poor eye contact Motor Behavior: steady gait and station speech is nonspontaneous Affect: + constricted affect Mood: + depressed mood Thought Process: + concrete thought process Thought Content: + preoccupation Suicidal Thoughts: denies suicidal thoughts Homicidal Thoughts: denies homicidal thoughts Hallucinations: no auditory hallucinations and no visual hallucinations Cognition: language grossly intact; + attention not intact Insight: + limited insight Judgement: + limited judgement Vital Signs (Past 24 Hours) Last Vital Signs Temp 36.5 C 04/24/19 06:00 Pulse 62 04/24/19 06:49 Resp 19 04/24/19 06:00 BP 124/85 04/24/19 06:49 Pulse Ox 99 04/09/19 06:00 Results & Data Laboratory Results Laboratory Results - last 24 hr 04/24/19 08:01 PT 21.7 H INR 2.2 H Current Inpatient Medications Current Inpatient Medications: Current Inpatient Medications Acetaminophen (Tylenol) 650 mg PO Q4H PRN PRN Reason: Headache or Minor Fever Stop: 05/04/19 17:30 Last Admin: 04/23/19 18:16 Dose: 650 mg Documented by: Al Hydrox/Mg Hydrox/Simethicone (Maalox) 30 ml PO Q4H PRN PRN Reason: GI Upset Stop: 05/04/19 17:30 Aripiprazole (Abilify) 30 mg PO QAM SETH Stop: 05/22/19 08:59 Last Admin: 04/24/19 08:33 Dose: 30 mg Documented by: Hydroxyzine HCl (Vistaril) 50 mg PO HSZ PRN PRN Reason: Insomnia Stop: 05/04/19 17:30 Hydroxyzine HCl (Vistaril) 25 mg PO Q4H PRN PRN Reason: Anxiety Stop: 05/04/19 17:30 Ibuprofen (Motrin) 600 mg PO Q8H PRN PRN Reason: Pain Stop: 05/21/19 10:12 Magnesium Hydroxide (Milk Of Magnesia) 30 ml PO DAILY PRN PRN Reason: Constipation Stop: 05/04/19 17:30 Olanzapine (Zyprexa) 10 mg IM DAILY PRN PRN Reason: REFUSE ABILIFY Stop: 05/14/19 11:44 Quetiapine Fumarate (Seroquel) 200 mg PO HS PRN PRN Reason: Sleep Stop: 05/14/19 11:39 Sertraline HCl (Zoloft) 200 mg PO QAM SETH Stop: 05/05/19 08:59 Last Admin: 04/24/19 08:33 Dose: 200 mg Documented by: Simvastatin (Zocor) 40 mg PO HS SETH Stop: 05/04/19 21:59 Last Admin: 04/23/19 21:49 Dose: 40 mg Documented by: Sodium Chloride (Ebony Nasal) 1 - 2 sprays NA PRN PRN PRN Reason: Nasal Dryness/Congestion Stop: 05/04/19 17:30 Trazodone HCl (Desyrel) 100 mg PO HS PRN PRN Reason: Sleep Stop: 05/04/19 17:33 Warfarin Sodium (Coumadin) 10 mg PO [id number]@1600 SETH Stop: 05/14/19 15:59 Last Admin: 04/21/19 16:46 Dose: 10 mg Documented by: Warfarin Sodium (Coumadin) 5 mg PO Antoine@1600 SETH Stop: 05/17/19 15:59 Last Admin: 04/17/19 16:00 Dose: 5 mg Documented by: Mental Health & Subst Abuse Tx Psychiatrist Name of Psychiatrist: [facility] - Dr. Harrington Psychiatrist's Time of Appointment with Psychiatrist: Dr Todd Psychiatric Appointment Comment: [id number] [place] [address] [facility] Therapist's Therapy Appointment Comment: [address] [facility] Computer Architect Name of Computer Architect: [employer] [facility] - Av Perez Phone Number for Computer Architect: [phone] Case Management Appointment Comment: [address], [address], [place] Post Discharge Appointments Primary Care Physician Name Of Family Doctor: [facility] - Dr. Catalina Todd Primary Care Provider Appointment Comment: [address] [facility] [place] [address] Contact Information Discharge Discharge [address]: [address] [place] [id number] CPT Code CPT Code 49171 (1) Depression Depression Type: major depressive disorder Major depression recurrence: recurrent Active/Remission status: currently active Major depression episode severity: severe Psychotic features: with psychotic features Qualified Code(s): F33.3 - Major depressive disorder, recurrent, severe with psychotic symptoms (2) Cellulitis Site of cellulitis: unspecified site Qualified Code(s): L03.90 - Cellulitis, unspecified (3) DVT (deep venous thrombosis) DVT location: lower extremity (4) Hyperlipidemia Hyperlipidemia type: unspecified Qualified Code(s): E78.5 - Hyperlipidemia, unspecified
[2019-04-24] MEDS: ACETAMINOPHEN 325 MG TAB PO PRN (12:46)
[2019-04-24] MEDS: WARFARIN SOD 5 MG TAB PO SCH (15:58)
[2019-04-24] MEDS: SIMVASTATIN 40 MG TAB PO SCH (21:20)
[2019-04-25] MEDS: ARIPiprazole 10 MG TAB PO SCH (08:45)
[2019-04-25] MEDS: SERTRALINE HCL 100 MG TABLET PO SCH (08:45)
[2019-04-25 09:17] LABS: INR 1.9 (0.9-1.1); Prothrombin Time 18.2 Seconds (9.0-12.0)
--- NOTE | 2019-04-25 11:09 | Psychiatric Progress Note ---
Date of Service April 25, 2019 Impression / Recommendations Surya Howard is a 59-year-old single male with a history of severe psychotic depression and generalized anxiety, as well as long-standing treatment nonadherence which has resulted in multiple involuntary outpatient commitments, who was just discharged from our unit 2 weeks prior to being hospitalized medically for DVT and lower extremity cellulitis in the context of medication nonadherence at home. The patient's has been treated with aripiprazole and sertraline for his psychotic depression. The dose of aripiprazole has been titrated to a dose of 30 mg a day, and the dose of sertraline has been titrated to a dose of 200 mg a day. Pt has a meeting scheduled with his pillowcase cleaner and [facility] tomorrow to discuss discharge possibilities. Pt continues to be isolative and refuses various prescribed medications. Discharge to an unsupervised setting would not be advised given his history of medication non- compliance and risk of harm with inability to reliably attend to ADLs at home. Inpatient psychiatric treatment remaind medically necessary at this time. (1) Depression: 04/05 -continue sertraline 200 mg daily and quetiapine 50 mg at bedtime, which he is intermittently refusing. If he does not become more compliant with oral medications, we will pursue medications over objection, as his psychotic depression is unlikely to remit without medication, and he has responded well to these medications in the past. -Get records from outpatient psychiatrist, and coordinate care with his outpatient therapist and pillowcase cleaner. -Brother, Amie, is his power of assistant attorney general we will enlist his assistance with medical decision making as the patient currently lacks capacity to refuse the recommended treatment. -Encourage patient to be out of bed during the day and participating in groups and therapy. Consider locking his door during group time if he is unable to do this on his own. -He was on an involuntary outpatient commitment, so we will file for a conversion hearing to convert to 304 involuntary treatment. 04/06 -patient has refused sertraline the past 2 days, and although he took quetiapine the first night, he refused it last night. He is refusing all groups, has not bathed, and is refusing to eat and less staff bring food to his room. -We will place him in a medically necessary private room due to severity of mood and psychotic symptoms, and request staff to lock his door during group time him to be more engaged in treatment. -Staff contacted the patient's [id number], who clarified that the patient does not actually have a power of assistant attorney general, although this has been documented on admission here. She reported the family is frustrated and concerned with the patient's lack of ability to care for his mental and physical needs. The family has been exploring supportive living, specifically [facility]. -Patient's pillowcase cleaner, Av Perez, will come in for a meeting tomorrow. 04/07 -improved medication compliance with staff support; continue sertraline 200 mg daily and increase quetiapine to 100 mg at bedtime. -framing manager, Av Perez, is coming to meet with patient today. 04/08 - Continue sertraline 200mg and increase quetiapine to 150mg HS. -On 304 commitment. Continue to encourage him to sign YAYA for [facility] 04/09 -pt refused quetiapine last night, having dose tonight be 1/2 of 300mg pill of quetiapine to help lower pill burden and might hold his lipid med tonight as well to help improve likelihood of pt taking his atypical antipsychotic dose that seems to be medication most needed at this time. goal is to titrate up quetiapine. Pharmacy has 50,100,200, and 300mg size pills, (in Xr form there are 150mg size, if switching to xr in future would advise dosing around 8pm. addressed pt delusional thinking and attempted reality testing. 04/10 took seroquel 150mg dose on 04/09 and noticing some improvement today pt might be improving some and might be more open to treatment ceased MNPR at this time 04/11 - Continue sertraline 200mg daily - will titration quetiapine to 200mg daily, can give previous dose of 150mg (1/2 of 300mg tablet) if refuses - Having a rather difficult day today, limited engagement in programming, continues to believe he is dying 04/12 - Continue as above. Pt refused quetiapine last evening, to receive titrated dose of 200mg tonight if compliant - Had a decent morning, though returned to fixation on dying by the afternoon 04/13 -Continue sertraline, has been taking the 200 mg dose for the past 7 days. -Continues to intermittently refuse quetiapine, only taking it on 50% of days in the past week, and received first dose of 200 mg at bedtime last night. He is unwilling to discuss other atypical antipsychotics and remains floridly delusional without insight. He lacks capacity to refuse treatment recommendations for an antipsychotic, as 1 of his delusions is that he has diabetes and is going to at any moment, so believes any treatment is futile. Recommend medications over objection, with a trial of either aripiprazole or paliperidone to target psychotic symptoms, with an IM of olanzapine for refusal of oral medication. If he responds well and tolerates the oral antipsychotic, will then transition him to the long-acting injectable form. We will asked Dr. Delarosa to see him tomorrow for a second opinion. 04/14 - The patient continues to intermittently refuse quetiapine, only taking it on 50% of days in the past week. Today, he tells me that he will refuse quetiapine and all medications, stating, "What's the use? I'm dying." He is unwilling to discuss other antipsychotics and I agree with Dr. Vann's finding that he remains floridly delusional without insight. He lacks capacity to refuse treatment recommendations for an antipsychotic, as one of his delusions is that he has diabetes (he doesn't) and is going to "maybe right now." Within this context he tells me that treatment is futile and he will refuse to take what we are prescribing to him.. I endorse the recommendation for medications over objection. I have ordered aripiprazole 10 mg daily by mouth to treat the patient's psychosis, and I have ordered olanzapine 10 mg IM for refusal of p.o. aripiprazole. Without consistent application of antipsychotic medications at the appropriate dose, it can reasonably be expected that the patient will remain dangerous to himself to the degree that inpatient psychiatric hospitalization will remain medically necessary. 04/15 -Quetiapine was discontinued in favor of aripiprazole, with an order for olanzapine IM over objection if the patient declines aripiprazole. He did, in fact, voluntarily take aripiprazole 10 mg yesterday and this morning, and reports that he did not have any difficulty tolerating it, either yesterday, or this morning. -He has been refusing sertraline. An issue may be that he may not have realized that sertraline and Zoloft are the same medication. Today, he tells me that he has a past history of febrile response to Zoloft. I have explained to him that our finding is that he is suffering from a major depression that has caused him to lose touch with certain aspects of reality and, for that reason, we feel very strongly that he must take an antidepressant medication as part of recovery. The patient tells us that he will now agree to take sertraline (Zoloft) but this remains to be seen. 04/16 -So far he has been compliant with increased dose of Abilify. Appears he would likely benefit from long-acting injectable if he continues to tolerate well 04/17 -Appears more depressive today. -Remains delusionally preoccupied -Increase Abilify to 20 mg daily. Has been compliant 04/18 -Continue aripiprazole and sertraline, and discontinue lorazepam. Encourage patient to be out of bed and participating in treatment. 04/19 - Continue as above - Pt reporting improvement in headache after receiving a heating pad - will continue to monitor. Possible etiology includes current environment (dry air, bright lights, ect.), medication side effect, or other medical concern. Will continue to observe for now, consider hospitalist bentley given his anticoagulation history to determine if NSAIDs could be appropriately considered in his case for intermittent and limited use 04/20 - Continue current medication regimen - Continue symptomatic treatment for headache, reporting Tylenol is effective although he is requiring routine dosing 04/21 - Titrating aripiprazole to 30mg qAM starting tomorrow; continue sertraline 200mg daily. Pt continues to be focused on number of pills being given to him, but this is difficult to rectify based on available pharmacy dosing of ordered medications - Tylenol remains helpful for headache symptoms, but symptoms return throughout the day - Discussed persistent reports of headache with hospitalist - felt to be ok to offer ibuprofen prn for headache symptoms despite anticoagulation status; continue to monitor - Anticipate meeting with [facility] representatives next week 04/22 -The patient does report improvement in his depression, although he also says that he feels that his depression is "so severe" that medications are unlikely to be more than a "drop in the bucket." -The patient's affect is noticeably brighter and more animated. Today, he laughed several times, appropriately, during our encounter. -The plan is to continue sertraline 200 mg daily in combination with aripiprazole 30 mg daily. -We are also emphasizing reality testing and illness teaching through indiv idual and group therapies. The patient remains active and activity therapy and tells us that this is 1 of his favorite parts of hospitalization. 04/25 - Continue current medication regimen - Pt has been more isolative recently - Continue to encourage participation in group programming (2) Catatonia: 04/05 -continue Lorazepam 2 mg twice daily and taper over hospital stay. Continue to treat underlying medical conditions as below. 04/06 -decrease Lorazepam to 1 mg twice daily, as he is intermittently refusing doses and it has not been overly helpful. 04/13 -patient has been refusing the at bedtime dose of lorazepam, so will discontinue it. The morning dose can likely be discontinued prior to discharge. 04/14 -The patient is poorly responsive, but not catatonic at this point. 04/18 -discontinue lorazepam, as patient retreating to his bed and want to minimize sedating effects. (3) Generalized anxiety disorder: 04/05 -continue SSRI and lorazepam as above, offer hydroxyzine as needed for anxiety. Consider resuming buspirone if indicated. 04/14 -The patient's anxious distress at this point seems primarily attributable to his delusional believes that he is moribund. Our plan is to continue to aggressively treat his psychosis and reassess anxious distress once the patient's psychotic features have resolved. 04/15 -The patient appears to be somewhat less anxious today, a circumstance that may be attributable to aripiprazole. Hopefully, the patient will also begin to take sertraline as prescribed. 04/22 -The patient appears to be less anxious today and tells us that he is feeling more relaxed and less upset. 04/25 - Continues to be preoccupied with perceived physical deterioration, continue current medication regimen (4) Cellulitis: 04/05 -complete course of Keflex, last dose 04/08/2019. Infection is resolving. 04/22 -Infection appears to have resolved. (5) DVT (deep venous thrombosis): 04/05 -continue Coumadin 5 mg daily, daily PT/INR, and Lovenox until INR is therapeutic. Coordinate care with Dr. Loyola, who sees him at the anticoagulation clinic. 04/07 -INR is 1.2 today, continue Coumadin and Lovenox. Coordinate with Dr. Loyola 04/11 - Reviewed consultation recommendations - discussed recs with Dr. Loyola via phone - Orders provided for patient to receive 15mg of warfarin today, then a schedule of 10mg daily SuTuThSa, and 5mg daily MWF - Recommended that enoxaparin continue until his INR is therapeutic for two days (two day overlap) - Dr. Loyola to continue to follow 04/14 -Anticoagulation therapy continues. PT and PTT values are as expected. -The patient reports no pain or tenderness in his lower extremities. 04/15 -Consulted telephonically yesterday, telephonically, with hematology. They are following, and agree that the patient's current lab values are in the target range. Several medication adjustments are being planned, and the patient remains asymptomatic. 04/16 -PT INR 26.7 and 2.8 respectively today 04/17 -INR 2.9 today 04/22 -The patient's INR levels have been steadily rising and this morning's value was 3.5. The addition of sertraline to the patient's medication regimen may be impacting upon his coagulation values. The patient remains asymptomatic, in terms of evidence of a pulmonary embolism. We will hold his daily warfarin level today, repeat the warfarin coagulation studies in the morning, and will plan to resume warfarin (at the half dose) on Thursday with a full dose on Thursday, as indicated by his lab values. 04/24 --clarification of lab frequency with coag clinic tomorrow 04/25, scheduled for 5 mg Coumadin this pm per Dr. Loyola. 04/25 - Restart coumadin regimen prior to its holding on 04/22 - Restart daily lab draws - PT INR is 18.2 and 1.9 respectively today - Appreciate ongoing input from anticoagulation clinic regarding recommendations (6) Hyperlipidemia: 04/05 -continue home statin. 04/09 and 04/10 aiming for pt to take med but comfortable with pt refusing this m ed at current time if helps him obtain his other medications, aim is for improved meed compliance occur as psychiatrically improves, lexy since currently pt pill load a factor in pt compliance Inventory Assets Strengths: Educated, supportive family Needs: Compliance with treatment, increase community supports Risk Factors Assessment Male: Yes : Yes Do You Have Access To A Gun?: No Health Problems: Yes Mental Health Diagnoses: Yes Substance Use Disorders: No Previous Attempt: Yes Family History of Suicide: No Previous Psychiatric Hospitalization: Yes Hopelessness: Yes Smoker: No Protective Factors Assessment Voodoo Beliefs: No : No Responsible for Young Children: No Employed: No Stable Relationships: Yes Supportive Family: Yes Good Rapport with Provider: No Interval History Identifying Information YINKA ROMERO is a 59-year-old M who currently lives alone in an [place], has a history of depression with psychosis, generalized anxiety disorder, treatment nonadherence and was on an involuntary outpatient commitment, and was admitted on 04/04/19 16:39 on a 302 involuntary commitment for depression with psychosis, treatment nonadherence, and inability to care for himself. He is on a 304 commitment as of 04/08/19. Chief Complaint "Oh, well, I'm not sure how I can be doing good if I'm still here..." Review of Systems Notes Constitutional: reports dizziness after daily blood draws Cardiovascular: denied Respiratory: denied Gastrointestinal: denied Neurological: denied Psychiatric: denies symptoms other than stated above Total of at least 10 systems reviewed, pertinent positives as above and in HPI. Sleep Information Total Hours of Sleep: 8.25 Sleep Comments: pt on q-15 minute checks Meal Information Percent Meal Consumed - Breakfast: 100 Percent Meal Consumed - Lunch: 100 Percent Meal Consumed - Dinner: 100 Nutrition Comment: documented from meal record worksheet Subjective Subjective Patient was seen & assessed and interval progress reviewed with treatment team. Staff reports the patient was rather isolative for the duration of the weekend. He was compliant with most medications, but continues to be preoccupied with his perceived physical deterioration. Pt is scheduled for a meeting with his pillowcase cleaner and representatives from [facility] tomorrow. Pt was seen today to assess progress since admission. Pt states he is ok, but admits "being here, I'm not so good." Pt is focused on lightheadedness he is experiencing, relating it to his daily lab draws. He reports concern, as he is able to have his PT/INR read via fingersticks at the outpatient clinic - and states "two vials of blood every day, there's no way that's good for a person. No wonder I'm dizzy, they're pulling the blood right out of me. There's no way it regenerates that fast." Pt was reminded of the inconsistencies in his PT/INR, and need for monitoring until the readings are stable. He reports understanding of this. We discussed his meeting tomorrow, and he reports willingness to obtain information about [facility]. Pt states, "though I'm pretty sure they'll be scared to take me or something, so why even bother." When asked why patient felt this way, he stated, "taking me from here, they'll probably think I'm going to attack someone or give them a hard time. They won't want me." Pt was reminded that he has no history of aggression and that this meeting will be a chance for him to let the staff get to know him more. Pt then began to focus on his physical concerns, stating that he needed "a usp. I've been to [facility] to visit someone. There are people much older than me who get around much better, I think I'll need to be somewhere where I can just lay in bed if I need to." Pt was encouraged to get some level of activity in today, as this provider expressed concern about him staying in bed for most of the weekend. Pt reported he would see if he "feels up to it." Pt denied other acute needs or concerns at this time. Physical Exam Psychiatric Orientation: alert, oriented x 3 and + guarded (only superficially cooperative) Apperance: appropriately dressed (in sweater and scrub pants) and + disheveled Wearing corrective lenses, facial hair is unkempt Eye Contact: + poor eye contact (rare moments of direct eye contact) Motor Behavior: no abnormal motor movements (observed while laying in bed due to reported dizziness) Speech: normal rate/rhythm/volume of speech Affect: + depressed affect, + irritable affect and mood congruent with affect Mood: + depressed mood ("I don't know how it could be good with being in the hospital") Thought Process: + perseveration (on various somatic complaints) and + concrete thought process Thought Content: + preoccupation (with perceived physical deterioration), + cognitive distortions, + hopelessness, + worthlessness and + self deprecation Suicidal Thoughts: denies suicidal thoughts and denies suicidal intent Hallucinations: no auditory hallucinations and no visual hallucinations Cognition: attention grossly intact and language grossly intact Insight: + impaired insight Judgement: + impaired judgement Vital Signs (Past 24 Hours) Last Vital Signs Temp 36.6 C 04/25/19 06:51 Pulse 73 04/25/19 06:51 Resp 18 04/25/19 06:51 BP 127/81 04/25/19 06:51 Pulse Ox 99 04/09/19 06:00 Results & Data Laboratory Results Laboratory Results - last 24 hr 04/25/19 08:58 PT 18.2 H INR 1.9 H Current Inpatient Medications Current Inpatient Medications: Current Inpatient Medications Acetaminophen (Tylenol) 650 mg PO Q4H PRN PRN Reason: Headache or Minor Fever Stop: 05/04/19 17:30 Last Admin: 04/24/19 12:46 Dose: 650 mg Documented by: Al Hydrox/Mg Hydrox/Simethicone (Maalox) 30 ml PO Q4H PRN PRN Reason: GI Upset Stop: 05/04/19 17:30 Aripiprazole (Abilify) 30 mg PO QAM [facility] Stop: 05/22/19 08:59 Last Admin: 04/25/19 08:45 Dose: 30 mg Documented by: Hydroxyzine HCl (Vistaril) 50 mg PO HSZ PRN PRN Reason: Insomnia Stop: 05/04/19 17:30 Hydroxyzine HCl (Vistaril) 25 mg PO Q4H PRN PRN Reason: Anxiety Stop: 05/04/19 17:30 Ibuprofen (Motrin) 600 mg PO Q8H PRN PRN Reason: Pain Stop: 05/21/19 10:12 Magnesium Hydroxide (Milk Of Magnesia) 30 ml PO DAILY PRN PRN Reason: Constipation Stop: 05/04/19 17:30 Olanzapine (Zyprexa) 10 mg IM DAILY PRN PRN Reason: REFUSE ABILIFY Stop: 05/14/19 11:44 Quetiapine Fumarate (Seroquel) 200 mg PO HS PRN PRN Reason: Sleep Stop: 05/14/19 11:39 Sertraline HCl (Zoloft) 200 mg PO QAM SETH Stop: 05/05/19 08:59 Last Admin: 04/25/19 08:45 Dose: 200 mg Documented by: Simvastatin (Zocor) 40 mg PO HS SETH Stop: 05/04/19 21:59 Last Admin: 04/24/19 21:20 Dose: Not Given Documented by: Sodium Chloride ([place] Nasal) 1 - 2 sprays NA PRN PRN PRN Reason: Nasal Dryness/Congestion Stop: 05/04/19 17:30 Trazodone HCl (Desyrel) 100 mg PO HS PRN PRN Reason: Sleep Stop: 05/04/19 17:33 Warfarin Sodium (Coumadin) 10 mg PO SuMoWeFr@1600 SETH Stop: 05/25/19 15:59 Warfarin Sodium (Coumadin) 7.5 mg PO TuThSa@1600 SETH Stop: 05/26/19 15:59 Mental Health & Subst Abuse Tx Psychiatrist Name of Psychiatrist: [facility] - Dr. Harrington Psychiatrist's Time of Appointment with Psychiatrist: Dr Todd Psychiatric Appointment Comment: [address], [place] [address] Therapist Name of Therapist: [facility] - Juan Menendez [facility] Therapist's Therapy Appointment Comment: [address] [facility] Sap Bi Developer Name of Sap Bi Developer: [employer] - Av Perez Phone Number for Sap Bi Developer: [phone] Case Management Appointment Comment: [address], [address], [place] Post Discharge Appointments Primary Care Physician Name Of Family Doctor: [facility] - Dr. Catalina Todd Primary Care Provider Appointment Comment: [address] [place] [id number] Contact Information Discharge Discharge Address: [address] [place] [address] CPT Code CPT Code 92118 (1) DVT (deep venous thrombosis) DVT location: lower extremity (2) Cellulitis Site of cellulitis: unspecified site Qualified Code(s): L03.90 - Cellulitis, unspecified (3) Depression Active/Remission status: currently active Depression Type: major depressive disorder Major depression episode severity: severe Major depression recurrence: recurrent Psychotic features: with psychotic features Qualified Code(s): F33.3 - Major depressive disorder, recurrent, severe with psychotic symptoms (4) Hyperlipidemia Hyperlipidemia type: unspecified Qualified Code(s): E78.5 - Hyperlipidemia, unspecified
[2019-04-25] MEDS: WARFARIN SOD 10 MG TAB PO SCH (16:12)
[2019-04-25] MEDS: SIMVASTATIN 40 MG TAB PO SCH (20:43)
[2019-04-26 07:44] LABS: INR 1.9 (0.9-1.1); Prothrombin Time 18.6 Seconds (9.0-12.0)
[2019-04-26] MEDS: ARIPiprazole 10 MG TAB PO SCH (08:24)
[2019-04-26] MEDS: SERTRALINE HCL 100 MG TABLET PO SCH (08:24)
--- NOTE | 2019-04-26 09:02 | Psychiatric Progress Note ---
Date of Service April 26, 2019 Impression / Recommendations Surya Howard is a 59-year-old single male with a history of severe psychotic depression and generalized anxiety, as well as long-standing treatment nonadherence which has resulted in multiple involuntary outpatient commitments, who was just discharged from our unit 2 weeks prior to being hospitalized medically for DVT and lower extremity cellulitis in the context of medication nonadherence at home. The patient's has been treated with aripiprazole and sertraline for his psychotic depression. The dose of aripiprazole has been titrated to a dose of 30 mg a day, and the dose of sertraline has been titrated to a dose of 200 mg a day. Pt has a meeting scheduled with his rn case management and [facility] today to discuss discharge possibilities. Pt continues to be isolative and refuses various prescribed medications. Discharge to an unsupervised setting would not be advised given his history of medication non- compliance and risk of harm with inability to reliably attend to ADLs at home. Inpatient psychiatric treatment remains medically necessary at this time. (1) Depression: 04/05 -continue sertraline 200 mg daily and quetiapine 50 mg at bedtime, which he is intermittently refusing. If he does not become more compliant with oral medications, we will pursue medications over objection, as his psychotic depression is unlikely to remit without medication, and he has responded well to these medications in the past. -Get records from outpatient psychiatrist, and coordinate care with his outpatient therapist and rn case management. -Brother, Amie, is his power of crate builder we will enlist his assistance with medical decision making as the patient currently lacks capacity to refuse the recommended treatment. -Encourage patient to be out of bed during the day and participating in groups and therapy. Consider locking his door during group time if he is unable to do this on his own. -He was on an involuntary outpatient commitment, so we will file for a conversion hearing to convert to 304 involuntary treatment. 04/06 -patient has refused sertraline the past 2 days, and although he took quetiapine the first night, he refused it last night. He is refusing all groups, has not bathed, and is refusing to eat and less staff bring food to his room. -We will place him in a medically necessary private room due to severity of mood and psychotic symptoms, and request staff to lock his door during group time him to be more engaged in treatment. -Staff contacted the patient's [id number], who clarified that the patient does not actually have a power of crate builder, although this has been documented on admission here. She reported the family is frustrated and concerned with the patient's lack of ability to care for his mental and physical needs. The family has been exploring supportive living, specifically [facility]. -Patient's rn case management, Av Perez, will come in for a meeting tomorrow. 04/07 -improved medication compliance with staff support; continue sertraline 200 mg daily and increase quetiapine to 100 mg at bedtime. -manager market research, Av Perez, is coming to meet with patient today. 04/08 - Continue sertraline 200mg and increase quetiapine to 150mg HS. -On 304 commitment. Continue to encourage him to sign [facility]AY[facility] for [facility] 04/09 -pt refused quetiapine last night, having dose tonight be 1/2 of 300mg pill of quetiapine to help lower pill burden and might hold his lipid med tonight as well to help improve likelihood of pt taking his atypical antipsychotic dose that seems to be medication most needed at this time. goal is to titrate up quetiapine. Pharmacy has 50,100,200, and 300mg size pills, (in Xr form there are 150mg size, if switching to xr in future would advise dosing around 8pm. addressed pt delusional thinking and attempted reality testing. 04/10 took seroquel 150mg dose on 04/09 and noticing some improvement today pt might be improving some and might be more open to treatment ceased MNPR at this time 04/11 - Continue sertraline 200mg daily - will titration quetiapine to 200mg daily, can give previous dose of 150mg (1/2 of 300mg tablet) if refuses - Having a rather difficult day today, limited engagement in programming, continues to believe he is dying 04/12 - Continue as above. Pt refused quetiapine last evening, to receive titrated dose of 200mg tonight if compliant - Had a decent morning, though returned to fixation on dying by the afternoon 04/13 -Continue sertraline, has been taking the 200 mg dose for the past 7 days. -Continues to intermittently refuse quetiapine, only taking it on 50% of days in the past week, and received first dose of 200 mg at bedtime last night. He is unwilling to discuss other atypical antipsychotics and remains floridly delusional without insight. He lacks capacity to refuse treatment recommendations for an antipsychotic, as 1 of his delusions is that he has diabetes and is going to at any moment, so believes any treatment is futile. Recommend medications over objection, with a trial of either aripiprazole or paliperidone to target psychotic symptoms, with an IM of olanzapine for refusal of oral medication. If he responds well and tolerates the oral antipsychotic, will then transition him to the long-acting injectable form. We will asked Dr. Delarosa to see him tomorrow for a second opinion. 04/14 - The patient continues to intermittently refuse quetiapine, only taking it on 50% of days in the past week. Today, he tells me that he will refuse quetiapine and all medications, stating, "What's the use? I'm dying." He is unwilling to discuss other antipsychotics and I agree with Dr. Vann's finding that he remains floridly delusional without insight. He lacks capacity to refuse treatment recommendations for an antipsychotic, as one of his delusions is that he has diabetes (he doesn't) and is going to "maybe right now." Within this context he tells me that treatment is futile and he will refuse to take what we are prescribing to him.. I endorse the recommendation for medications over objection. I have ordered aripiprazole 10 mg daily by mouth to treat the patient's psychosis, and I have ordered olanzapine 10 mg IM for refusal of p.o. aripiprazole. Without consistent application of antipsychotic medications at the appropriate dose, it can reasonably be expected that the patient will remain dangerous to himself to the degree that inpatient psychiatric hospitalization will remain medically necessary. 04/15 -Quetiapine was discontinued in favor of aripiprazole, with an order for olanzapine IM over objection if the patient declines aripiprazole. He did, in fact, voluntarily take aripiprazole 10 mg yesterday and this morning, and reports that he did not have any difficulty tolerating it, either yesterday, or this morning. -He has been refusing sertraline. An issue may be that he may not have realized that sertraline and Zoloft are the same medication. Today, he tells me that he has a past history of febrile response to Zoloft. I have explained to him that our finding is that he is suffering from a major depression that has caused him to lose touch with certain aspects of reality and, for that reason, we feel very strongly that he must take an antidepressant medication as part of recovery. The patient tells us that he will now agree to take sertraline (Zoloft) but this remains to be seen. 04/16 -So far he has been compliant with increased dose of Abilify. Appears he would likely benefit from long-acting injectable if he continues to tolerate well 04/17 -Appears more depressive today. -Remains delusionally preoccupied -Increase Abilify to 20 mg daily. Has been compliant 04/18 -Continue aripiprazole and sertraline, and discontinue lorazepam. Encourage patient to be out of bed and participating in treatment. 04/19 - Continue as above - Pt reporting improvement in headache after receiving a heating pad - will continue to monitor. Possible etiology includes current environment (dry air, bright lights, ect.), medication side effect, or other medical concern. Will continue to observe for now, consider hospitalist bentley given his anticoagulation history to determine if NSAIDs could be appropriately considered in his case for intermittent and limited use 04/20 - Continue current medication regimen - Continue symptomatic treatment for headache, reporting Tylenol is effective although he is requiring routine dosing 04/21 - Titrating aripiprazole to 30mg qAM starting tomorrow; continue sertraline 200mg daily. Pt continues to be focused on number of pills being given to him, but this is difficult to rectify based on available pharmacy dosing of ordered medications - Tylenol remains helpful for headache symptoms, but symptoms return throughout the day - Discussed persistent reports of headache with hospitalist - felt to be ok to offer ibuprofen prn for headache symptoms despite anticoagulation status; c ontinue to monitor - Anticipate meeting with [facility] representatives next week 04/22 -The patient does report improvement in his depression, although he also says that he feels that his depression is "so severe" that medications are unlikely to be more than a "drop in the bucket." -The patient's affect is noticeably brighter and more animated. Today, he laughed several times, appropriately, during our encounter. -The plan is to continue sertraline 200 mg daily in combination with aripiprazole 30 mg daily. -We are also emphasizing reality testing and illness teaching through individual and group therapies. The patient remains active and activity therapy and tells us that this is 1 of his favorite parts of hospitalization. 04/25 - Continue current medication regimen - Pt has been more isolative recently - Continue to encourage participation in group programming 04/26 - Continue current medication regimen - Feeling better physically today - Continue to encourage group participation - Meeting with Ashwin Parham and rn case management today (2) Catatonia: 04/05 -continue Lorazepam 2 mg twice daily and taper over hospital stay. Continue to treat underlying medical conditions as below. 04/06 -decrease Lorazepam to 1 mg twice daily, as he is intermittently refusing doses and it has not been overly helpful. 04/13 -patient has been refusing the at bedtime dose of lorazepam, so will discontinue it. The morning dose can likely be discontinued prior to discharge. 04/14 -The patient is poorly responsive, but not catatonic at this point. 04/18 -discontinue lorazepam, as patient retreating to his bed and want to minimize sedating effects. (3) Generalized anxiety disorder: 04/05 -continue SSRI and lorazepam as above, offer hydroxyzine as needed for anxiety. Consider resuming buspirone if indicated. 04/14 -The patient's anxious distress at this point seems primarily attributable to his delusional believes that he is moribund. Our plan is to continue to aggressively treat his psychosis and reassess anxious distress once the patient's psychotic features have resolved. 04/15 -The patient appears to be somewhat less anxious today, a circumstance that may be attributable to aripiprazole. Hopefully, the patient will also begin to take sertraline as prescribed. 04/22 -The patient appears to be less anxious today and tells us that he is feeling more relaxed and less upset. 04/25 - Continues to be preoccupied with perceived physical deterioration, continue current medication regimen (4) Cellulitis: 04/05 -complete course of Keflex, last dose 04/08/2019. Infection is resolving. 04/22 -Infection appears to have resolved. (5) DVT (deep venous thrombosis): 04/05 -continue Coumadin 5 mg daily, daily PT/INR, and Lovenox until INR is therapeutic. Coordinate care with Dr. Loyola, who sees him at the anticoagulation clinic. 04/07 -INR is 1.2 today, continue Coumadin and Lovenox. Coordinate with Dr. Loyola 04/11 - Reviewed consultation recommendations - discussed recs with Dr. Loyola via phone - Orders provided for patient to receive 15mg of warfarin today, then a schedule of 10mg daily SuTuThSa, and 5mg daily MWF - Recommended that enoxaparin continue until his INR is therapeutic for two days (two day overlap) - Dr. Loyola to continue to follow 04/14 -Anticoagulation therapy continues. PT and PTT values are as expected. -The patient reports no pain or tenderness in his lower extremities. 04/15 -Consulted telephonically yesterday, telephonically, with hematology. They are following, and agree that the patient's current lab values are in the target range. Several medication adjustments are being planned, and the patient remains asymptomatic. 04/16 -PT INR 26.7 and 2.8 respectively today 04/17 -INR 2.9 today 04/22 -The patient's INR levels have been steadily rising and this morning's value was 3.5. The addition of sertraline to the patient's medication regimen may be impacting upon his coagulation values. The patient remains asymptomatic, in terms of evidence of a pulmonary embolism. We will hold his daily warfarin level today, repeat the warfarin coagulation studies in the morning, and will plan to resume warfarin (at the half dose) on Thursday with a full dose on Thursday, as indicated by his lab values. 04/24 --clarification of lab frequency with coag clinic tomorrow 04/25, scheduled for 5 mg Coumadin this pm per Dr. Loyola. 04/25 - Restart coumadin regimen prior to its holding on 04/22 - Restart daily lab draws - PT INR is 18.2 and 1.9 respectively today - Appreciate ongoing input from anticoagulation clinic regarding recommendations (6) Hyperlipidemia: 04/05 -continue home statin. 04/09 and 04/10 aiming for pt to take med but comfortable with pt refusing this med at current time if helps him obtain his other medications, aim is for improved meed compliance occur as psychiatrically improves, lexy since currently pt pill load a factor in pt compliance Inventory Assets Strengths: Educated, supportive family Needs: Compliance with treatment, increase community supports Risk Factors Assessment Male: Yes : Yes Do You Have Access To A Gun?: No Health Problems: Yes Mental Health Diagnoses: Yes Substance Use Disorders: No Previous Attempt: Yes Family History of Suicide: No Previous Psychiatric Hospitalization: Yes Hopelessness: Yes Smoker: No Protective Factors Assessment Sabianist Beliefs: No : No Responsible for Young Children: No Employed: No Stable Relationships: Yes Supportive Family: Yes Good Rapport with Provider: No Interval History Identifying Information YINKA ROMERO is a 59-year-old M who currently lives alone in an [employer] [place], has a history of depression with psychosis, generalized anxiety disorder, treatment nonadherence and was on an involuntary outpatient commitment, and was admitted on 04/04/19 16:39 on a 302 involuntary commitment for depression with psychosis, treatment nonadherence, and inability to care for himself. He is on a 304 commitment as of 04/08/19. Chief Complaint "Oh, ok. I don't feel so bad today." Review of Systems Notes Constitutional: denied Cardiovascular: denied Respiratory: denied Gastrointestinal: denied Neurological: denies dizziness today Psychiatric: denies symptoms other than stated above Total of at least 10 systems reviewed, pertinent positives as above and in HPI. Sleep Information Total Hours of Sleep: 8.75 Sleep Comments: pt on q-15 minute checks Meal Information Percent Meal Consumed - Breakfast: 100 Percent Meal Consumed - Lunch: 100 Percent Meal Consumed - Dinner: 100 Nutrition Comment: documented from meal record worksheet Subjective Subjective Patient was seen & assessed and interval progress reviewed with nursing and social work. Staff report the patient has been predominantly isolative, not attending groups. He has continued to be preoccupied with perceived physical limitations. Pt is scheduled for a meeting with his rn case management and representatives from [facility] today. Pt was seen today to assess progress since admission. Pt states he is "ok", reporting "today I don't feel so bad" - referring to his reports of dizziness yesterday. He states, "I have that meeting today too." Pt was asked how he was expecting the meeting to go, to which he stated "I don't know, I'm just worried they won't want me. I don't get around as well as most people there." Pt was asked what his ideal living situation would be after discharge, as this provider reported concern that he was under-estimating his potential. Pt stated, "I don't know, I'd like to still be able to go out and do things, but I think my independent days are pretty much over." Pt was reminded of activities he reportedly enjoys, such as his bowling league and watching sports. Pt states, "well, I can't bowl anymore - I couldn't even think of throwing a ball." Pt was encourage to remain positive, as we continue to work on improvements with both his physical and mental health. Pt denies acute needs or concerns at this time. Physical Exam Psychiatric Orientation: alert and oriented x 3 Apperance: appropriately dressed (in sweater and scrub pants) and appropriately groomed (though facial hair remains long) Eye Contact: + fair eye contact Motor Behavior: steady gait and station and no abnormal motor movements Speech: normal rate/rhythm/volume of speech Affect: + depressed affect and mood congruent with affect Mood: + depressed mood ("oh, ok" and "a little better today") Thought Process: goal directed thought process, + perseveration (on various somatic complaints) and + concrete thought process Thought Content: + preoccupation (with perceived physical deterioration), + cognitive distortions, + hopelessness and + self deprecation Suicidal Thoughts: denies suicidal thoughts and denies suicidal intent Homicidal Thoughts: denies homicidal thoughts Hallucinations: no auditory hallucinations and no visual hallucinations Cognition: remote memory grossly intact, attention grossly intact and language grossly intact Insight: + limited insight Judgement: + limited judgement (though improving in regard to willingness to participate in treatment) Vital Signs (Past 24 Hours) Last Vital Signs Temp 36.6 C 04/26/19 07:03 Pulse 80 04/26/19 07:04 Resp 18 04/26/19 07:03 BP 125/83 04/26/19 07:04 Pulse Ox 99 04/09/19 06:00 Results & Data Laboratory Results Laboratory Results - last 24 hr 04/25/19 04/26/19 08:58 07:24 PT 18.2 H 18.6 H INR 1.9 H 1.9 H Current Inpatient Medications Current Inpatient Medications: Current Inpatient Medications Acetaminophen (Tylenol) 650 mg PO Q4H PRN PRN Reason: Headache or Minor Fever Stop: 05/04/19 17:30 Last Admin: 04/24/19 12:46 Dose: 650 mg Documented by: Al Hydrox/Mg Hydrox/Simethicone (Maalox) 30 ml PO Q4H PRN PRN Reason: GI Upset Stop: 05/04/19 17:30 Aripiprazole (Abilify) 30 mg PO QAM [facility] Stop: 05/22/19 08:59 Last Admin: 04/26/19 08:24 Dose: 30 mg Documented by: Hydroxyzine HCl (Vistaril) 50 mg PO HSZ PRN PRN Reason: Insomnia Stop: 05/04/19 17:30 Hydroxyzine HCl (Vistaril) 25 mg PO Q4H PRN PRN Reason: Anxiety Stop: 05/04/19 17:30 Ibuprofen (Motrin) 600 mg PO Q8H PRN PRN Reason: Pain Stop: 05/21/19 10:12 Magnesium Hydroxide (Milk Of Magnesia) 30 ml PO DAILY PRN PRN Reason: Constipation Stop: 05/04/19 17:30 Olanzapine (Zyprexa) 10 mg IM DAILY PRN PRN Reason: REFUSE ABILIFY Stop: 05/14/19 11:44 Quetiapine Fumarate (Seroquel) 200 mg PO HS PRN PRN Reason: Sleep Stop: 05/14/19 11:39 Sertraline HCl ([facility]ft) [facility] Stop: 05/05/19 08:59 Last Admin: 04/26/19 08:24 Dose: 200 mg Documented by: Simvastatin (Zocor) 40 mg PO HS [facility] Stop: 05/04/19 21:59 Last Admin: 04/25/19 20:43 Dose: 40 mg Documented by: Sodium Chloride ([employer] Nasal) 1 - 2 sprays NA PRN PRN PRN Reason: Nasal Dryness/Congestion Stop: 05/04/19 17:30 Trazodone HCl (Desyrel) 100 mg PO HS PRN PRN Reason: Sleep Stop: 05/04/19 17:33 Warfarin Sodium (Coumadin) 10 mg PO [id number]@1600 [facility] Stop: 05/25/19 15:59 Last Admin: 04/25/19 16:12 Dose: 10 mg Documented by: Warfarin Sodium (Coumadin) 7.5 mg PO [id number]@1600 [facility] Stop: 05/26/19 15:59 Mental Health & Subst Abuse Tx Psychiatrist Name of Psychiatrist: [facility] - Dr. Harrington Psychiatrist's Time of Appointment with Psychiatrist: Dr Todd Psychiatric Appointment Comment: [address], [place] [address] Therapist Name of Therapist: [facility] - Juan Menendez ACSW Therapist's Therapy Appointment Comment: [address] [facility], [place] Collet Maker Name of Collet Maker: [employer] [facility] - Av Chris Phone Number for Collet Maker: [phone] Case Management Appointment Comment: [address] [facility], [address], [place] Post Discharge Appointments Primary Care Physician Name Of Family Doctor: [facility] - Dr. Catalina Todd Primary Care Provider Appointment Comment: [address] [place] [address] Contact Information Discharge Discharge Address: [address] [place] [address] CPT Code CPT Code 81689 (1) DVT (deep venous thrombosis) DVT location: lower extremity (2) Cellulitis Site of cellulitis: unspecified site Qualified Code(s): L03.90 - Cellulitis, unspecified (3) Depression Active/Remission status: currently active Depression Type: major depressive disorder Major depression episode severity: severe Major depression recurrence: recurrent Psychotic features: with psychotic features Qualified Code(s): F33.3 - Major depressive disorder, recurrent, severe with psychotic symptoms (4) Hyperlipidemia Hyperlipidemia type: unspecified Qualified Code(s): E78.5 - Hyperlipidemia, unspecified
[2019-04-26] MEDS: WARFARIN SOD 7.5 MG TAB PO SCH (16:15)
[2019-04-26] MEDS: SIMVASTATIN 40 MG TAB PO SCH (21:11)
[2019-04-27 07:20] LABS: INR 2.2 (0.9-1.1); Prothrombin Time 21.3 Seconds (9.0-12.0)
[2019-04-27] MEDS: SERTRALINE HCL 100 MG TABLET PO SCH (08:33)
[2019-04-27] MEDS: ARIPiprazole 10 MG TAB PO SCH (08:33)
--- NOTE | 2019-04-27 09:03 | Psychiatric Progress Note ---
Date of Service April 27, 2019 Impression / Recommendations Surya Howard is a 59-year-old single male with a history of severe psychotic depression and generalized anxiety, as well as long-standing treatment nonadherence which has resulted in multiple involuntary outpatient commitments, who was just discharged from our unit 2 weeks prior to being hospitalized medically for DVT and lower extremity cellulitis in the context of medication nonadherence at home. The patient's has been treated with aripiprazole and sertraline for his psychotic depression. The dose of aripiprazole has been titrated to a dose of 30 mg a day, and the dose of sertraline has been titrated to a dose of 200 mg a day. Pt had a meeting with his major case detective and [facility] to discuss discharge possibilities. Pt continues to be isolative and refuses various prescribed medications. Discharge to an unsupervised setting would not be advised given his history of medication non-compliance and risk of harm with inability to reliably attend to ADLs at home. Inpatient psychiatric treatment remains medically necessary at this time. (1) Depression: 04/05 -continue sertraline 200 mg daily and quetiapine 50 mg at bedtime, which he is intermittently refusing. If he does not become more compliant with oral medications, we will pursue medications over objection, as his psychotic depression is unlikely to remit without medication, and he has responded well to these medications in the past. -Get records from outpatient psychiatrist, and coordinate care with his outpatient therapist and major case detective. -Brother, Amie, is his power of attorney general we will enlist his assistance with medical decision making as the patient currently lacks capacity to refuse the recommended treatment. -Encourage patient to be out of bed during the day and participating in groups and therapy. Consider locking his door during group time if he is unable to do this on his own. -He was on an involuntary outpatient commitment, so we will file for a conversio n hearing to convert to 304 involuntary treatment. 04/06 -patient has refused sertraline the past 2 days, and although he took quetiapine the first night, he refused it last night. He is refusing all groups, has not bathed, and is refusing to eat and less staff bring food to his room. -We will place him in a medically necessary private room due to severity of mood and psychotic symptoms, and request staff to lock his door during group time him to be more engaged in treatment. -Staff contacted the patient's [id number], who clarified that the patient does not actually have a power of attorney general, although this has been documented on admission here. She reported the family is frustrated and concerned with the patient's lack of ability to care for his mental and physical needs. The family has been exploring supportive living, specifically [facility]. -Patient's major case detective, Av Perez, will come in for a meeting tomorrow. 04/07 -improved medication compliance with staff support; continue sertraline 200 mg daily and increase quetiapine to 100 mg at bedtime. -rate manager, Av Perez, is coming to meet with patient today. 04/08 - Continue sertraline 200mg and increase quetiapine to 150mg HS. -On 304 commitment. Continue to encourage him to sign YAYA for [facility] 04/09 -pt refused quetiapine last night, having dose tonight be 1/2 of 300mg pill of quetiapine to help lower pill burden and might hold his lipid med tonight as well to help improve likelihood of pt taking his atypical antipsychotic dose that seems to be medication most needed at this time. goal is to titrate up quetiapine. Pharmacy has 50,100,200, and 300mg size pills, (in Xr form there are 150mg size, if switching to xr in future would advise dosing around 8pm. addressed pt delusional thinking and attempted reality testing. 04/10 took seroquel 150mg dose on 04/09 and noticing some improvement today pt might be improving some and might be more open to treatment ceased MNPR at this time 04/11 - Continue sertraline 200mg daily - will titration quetiapine to 200mg daily, can give previous dose of 150mg (1/2 of 300mg tablet) if refuses - Having a rather difficult day today, limited engagement in programming, continues to believe he is dying 04/12 - Continue as above. Pt refused quetiapine last evening, to receive titrated dose of 200mg tonight if compliant - Had a decent morning, though returned to fixation on dying by the afternoon 04/13 -Continue sertraline, has been taking the 200 mg dose for the past 7 days. -Continues to intermittently refuse quetiapine, only taking it on 50% of days in the past week, and received first dose of 200 mg at bedtime last night. He is unwilling to discuss other atypical antipsychotics and remains floridly de lusional without insight. He lacks capacity to refuse treatment recommendations for an antipsychotic, as 1 of his delusions is that he has diabetes and is going to at any moment, so believes any treatment is futile. Recommend medications over objection, with a trial of either aripiprazole or paliperidone to target psychotic symptoms, with an IM of olanzapine for refusal of oral medication. If he responds well and tolerates the oral antipsychotic, will then transition him to the long-acting injectable form. We will asked Dr. Delarosa to see him tomorrow for a second opinion. 04/14 - The patient continues to intermittently refuse quetiapine, only taking it on 50% of days in the past week. Today, he tells me that he will refuse quetiapine and all medications, stating, "What's the use? I'm dying." He is unwilling to discuss other antipsychotics and I agree with Dr. Vann's finding that he remains floridly delusional without insight. He lacks capacity to refuse treatment recommendations for an antipsychotic, as one of his delusions is that he has diabetes (he doesn't) and is going to "maybe right now." Within this context he tells me that treatment is futile and he will refuse to take what we are prescribing to him.. I endorse the recommendation for medications over objection. I have ordered aripiprazole 10 mg daily by mouth to treat the patient's psychosis, and I have ordered olanzapine 10 mg IM for refusal of p.o. aripiprazole. Without consistent application of antipsychotic medications at the appropriate dose, it can reasonably be expected that the patient will remain dangerous to himself to the degree that inpatient psychiatric hospitalization will remain medically necessary. 04/15 -Quetiapine was discontinued in favor of aripiprazole, with an order for olanzapine IM over objection if the patient declines aripiprazole. He did, in fact, voluntarily take aripiprazole 10 mg yesterday and this morning, and reports that he did not have any difficulty tolerating it, either yesterday, or this morning. -He has been refusing sertraline. An issue may be that he may not have realized that sertraline and Zoloft are the same medication. Today, he tells me that he has a past history of febrile response to Zoloft. I have explained to him that our finding is that he is suffering from a major depression that has caused him to lose touch with certain aspects of reality and, for that reason, we feel very strongly that he must take an antidepressant medication as part of recovery. The patient tells us that he will now agree to take sertraline (Zolo ft) but this remains to be seen. 04/16 -So far he has been compliant with increased dose of Abilify. Appears he would likely benefit from long-acting injectable if he continues to tolerate well 04/17 -Appears more depressive today. -Remains delusionally preoccupied -Increase Abilify to 20 mg daily. Has been compliant 04/18 -Continue aripiprazole and sertraline, and discontinue lorazepam. Encourage patient to be out of bed and participating in treatment. 04/19 - Continue as above - Pt reporting improvement in headache after receiving a heating pad - will continue to monitor. Possible etiology includes current environment (dry air, bright lights, ect.), medication side effect, or other medical concern. Will continue to observe for now, consider hospitalist bentley given his anti coagulation history to determine if NSAIDs could be appropriately considered in his case for intermittent and limited use 04/20 - Continue current medication regimen - Continue symptomatic treatment for headache, reporting Tylenol is effective although he is requiring routine dosing 04/21 - Titrating aripiprazole to 30mg qAM starting tomorrow; continue sertraline 200mg daily. Pt continues to be focused on number of pills being given to him, but this is difficult to rectify based on available pharmacy dosing of ordered medications - Tylenol remains helpful for headache symptoms, but symptoms return throughout the day - Discussed persistent reports of headache with hospitalist - felt to be ok to offer ibuprofen prn for headache symptoms despite anticoagulation status; continue to monitor - Anticipate meeting with [facility] representatives next week 04/22 -The patient does report improvement in his depression, although he also says that he feels that his depression is "so severe" that medications are unlikely to be more than a "drop in the bucket." -The patient's affect is noticeably brighter and more animated. Today, he laughed several times, appropriately, during our encounter. -The plan is to continue sertraline 200 mg daily in combination with aripiprazole 30 mg daily. -We are also emphasizing reality testing and illness teaching through individual and group therapies. The patient remains active and activity therapy and tells us that this is 1 of his favorite parts of hospitalization. 04/25 - Continue current medication regimen - Pt has been more isolative recently - Continue to encourage participation in group programming 04/26 - Continue current medication regimen - Feeling better physically today - Continue to encourage group participation - Meeting with Ashwin Parham and major case detective today 04/27 - Continue current medication regimen - Meeting with Ashwin Parham yesterday, who will call regarding acceptance - Continue to explore housing possibilities, as patient feels he will not be able to live independently (2) Catatonia: 04/05 -continue Lorazepam 2 mg twice daily and taper over hospital stay. Continue to treat underlying medical conditions as below. 04/06 -decrease Lorazepam to 1 mg twice daily, as he is intermittently refusing doses and it has not been overly helpful. 04/13 -patient has been refusing the at bedtime dose of lorazepam, so will discontinue it. The morning dose can likely be discontinued prior to discharge. 04/14 -The patient is poorly responsive, but not catatonic at this point. 04/18 -discontinue lorazepam, as patient retreating to his bed and want to minimize sedating effects. (3) Generalized anxiety disorder: 04/05 -continue SSRI and lorazepam as above, offer hydroxyzine as needed for anxiety. Consider resuming buspirone if indicated. 04/14 -The patient's anxious distress at this point seems primarily attributable to his delusional believes that he is moribund. Our plan is to continue to aggressively treat his psychosis and reassess anxious distress once the patient's psychotic features have resolved. 04/15 -The patient appears to be somewhat less anxious today, a circumstance that may be attributable to aripiprazole. Hopefully, the patient will also begin to take sertraline as prescribed. 04/22 -The patient appears to be less anxious today and tells us that he is feeling more relaxed and less upset. 04/25 - Continues to be preoccupied with perceived physical deterioration, continue current medication regimen (4) Cellulitis: 04/05 -complete course of Keflex, last dose 04/08/2019. Infection is resolving. 04/22 -Infection appears to have resolved. (5) DVT (deep venous thrombosis): 04/05 -continue Coumadin 5 mg daily, daily PT/INR, and Lovenox until INR is therapeutic. Coordinate care with Dr. Loyola, who sees him at the anticoagulation clinic. 04/07 -INR is 1.2 today, continue Coumadin and Lovenox. Coordinate with Dr. Loyola 04/11 - Reviewed consultation recommendations - discussed recs with Dr. Loyola via phone - Orders provided for patient to receive 15mg of warfarin today, then a schedule of 10mg daily SuTuThSa, and 5mg daily MWF - Recommended that enoxaparin continue until his INR is therapeutic for two days (two day overlap) - Dr. Loyola to continue to follow 04/14 -Anticoagulation therapy continues. PT and PTT values are as expected. -The patient reports no pain or tenderness in his lower extremities. 04/15 -Consulted telephonically yesterday, telephonically, with hematology. They are following, and agree that the patient's current lab values are in the target range. Several medication adjustments are being planned, and the patient remains asymptomatic. 04/16 -PT INR 26.7 and 2.8 respectively today 04/17 -INR 2.9 today 04/22 -The patient's INR levels have been steadily rising and this morning's value was 3.5. The addition of sertraline to the patient's medication regimen may be impacting upon his coagulation values. The patient remains asymptomatic, in t erms of evidence of a pulmonary embolism. We will hold his daily warfarin level today, repeat the warfarin coagulation studies in the morning, and will plan to resume warfarin (at the half dose) on Thursday with a full dose on Thursday, as indicated by his lab values. 04/24 --clarification of lab frequency with coag clinic tomorrow 04/25, scheduled for 5 mg Coumadin this pm per Dr. Loyola. 04/25 - Restart coumadin regimen prior to its holding on 04/22 - Restart daily lab draws - PT INR is 18.2 and 1.9 respectively today - Appreciate ongoing input from anticoagulation clinic regarding recommend ations 04/27 - Coumadin schedule changed per Dr. Loyola, who is following - Call placed to discuss possibility of alternative anticoagulation medications (6) Hyperlipidemia: 04/05 -continue home statin. 04/09 and 04/10 aiming for pt to take med but comfortable with pt refusing this med at current time if helps him obtain his other medications, aim is for improved meed compliance occur as psychiatrically improves, lexy since currently pt pill load a factor in pt compliance Inventory Assets Strengths: Educated, supportive family Needs: Compliance with treatment, increase community supports Risk Factors Assessment Male: Yes : Yes Do You Have Access To A Gun?: No Health Problems: Yes Mental Health Diagnoses: Yes Substance Use Disorders: No Previous Attempt: Yes Family History of Suicide: No Previous Psychiatric Hospitalization: Yes Hopelessness: Yes Smoker: No Protective Factors Assessment Church Beliefs: No : No Responsible for Young Children: No Employed: No Stable Relationships: Yes Supportive Family: Yes Good Rapport with Provider: No Interval History Identifying Information YINKA ROMERO is a 59-year-old M who currently lives alone in [facility], has a history of depression with psychosis, generalized anxiety disorder, treatment nonadherence and was on an involuntary outpatient commitment, and was admitted on 04/04/19 16:39 on a 302 involuntary commitment for depression with psychosis, treatment nonadherence, and inability to care for himself. He is on a 304 commitment as of 04/08/19. Chief Complaint "Oh ok. Fine." Review of Systems Notes Constitutional: denied Cardiovascular: denied Respiratory: denied Gastrointestinal: denied Neurological: denied Psychiatric: denies symptoms other than stated above Total of at least 10 systems reviewed, pertinent positives as above and in HPI. Sleep Information Total Hours of Sleep: 8.75 Sleep Comments: pt on q-15 minute checks Meal Information Percent Meal Consumed - Breakfast: 100 Percent Meal Consumed - Lunch: 100 Percent Meal Consumed - Dinner: 100 Nutrition Comment: documented from meal record worksheet Subjective Subjective Patient was seen & assessed and interval progress reviewed with treatment team. Staff reports the patient seemed to have a better day yesterday, was more interactive with peers, and attended some groups. He participated appropriately in a meeting with [facility]. We are awaiting response from the facility, although they did express concerns regarding his medical needs. Pt was seen today to assess progress since admission. Pt states he "ok" today - admitting that he did have a decent day yesterday - "I at least felt a little better in my head. I could get around more." Pt was asked how is meeting went yesterday, to which he responded "Oh, I don't know. They want someone that will be self-sufficient, and I just don't think I could do that." When asked what the staff stated he would have to be able to do independently, he was not able to provide any clear answers. He states, "there are no nurses around, you're just living in a home with 3 other guys. I can't lie to them about what I can do, they're going to figure it out." It was acknowledged by this provider that the patient has not been feeling himself recently, but we did discuss that he was able to attend to dishes and meal prep while living at home alone. Pt was encouraged to continue to think positively as we focus on his physical and mental health concerns, and to keep into perspective that he is generally feeling much better and is more capable of these tasks when he has been discharged from our facility in the past. Pt admits to limited hope, and does not agree with this mindset today - "I'm getting older, that's just the facts. I'm going to be getting worse, not better." Pt does feel like he is having a decent morning thus far, and feels as though he will be able to attend groups. Pt was asked if there was any additional support we could provide to him today, which he denied. Physical Exam Psychiatric Orientation: alert, oriented x 3 and cooperative (superficially) Apperance: appropriately dressed (wearing sweater and scrub pants), appropriately groomed and appeared stated age Eye Contact: + poor eye contact Motor Behavior: no abnormal motor movements (observed while sitting on edge of bed) Speech: normal rate/rhythm/volume of speech Affect: + blunted affect and mood congruent with affect Mood: + depressed mood and + anxious mood Thought Process: + perseveration (on physical concerns) and + concrete thought process Thought Content: + preoccupation (with perceived physical decompensation, and difficult housing decisions), + cognitive distortions, + hopelessness, + guilt and + self deprecation Today, patient does not report belief that he is going to , but admits to belief that his condition can only continue to deteriorate. Suicidal Thoughts: denies suicidal thoughts Hallucinations: no auditory hallucinations and no visual hallucinations Cognition: attention grossly intact and language grossly intact Insight: + impaired insight Judgement: + fair judgement Vital Signs (Past 24 Hours) Last Vital Signs Temp 36.6 C 04/27/19 06:00 Pulse 71 04/27/19 06:00 Resp 18 04/27/19 06:00 BP 104/72 04/27/19 06:00 Pulse Ox 99 04/09/19 06:00 Results & Data Laboratory Results Laboratory Results - last 24 hr 04/27/19 07:00 PT 21.3 H INR 2.2 H Current Inpatient Medications Current Inpatient Medications: Current Inpatient Medications Acetaminophen (Tylenol) 650 mg PO Q4H PRN PRN Reason: Headache or Minor Fever Stop: 05/04/19 17:30 Last Admin: 04/24/19 12:46 Dose: 650 mg Documented by: Al Hydrox/Mg Hydrox/Simethicone (Maalox) 30 ml PO Q4H PRN PRN Reason: GI Upset Stop: 05/04/19 17:30 Aripiprazole (Abilify) 30 mg PO QAM SETH Stop: 05/22/19 08:59 Last Admin: 04/27/19 08:33 Dose: 30 mg Documented by: Hydroxyzine HCl (Vistaril) 50 mg PO HSZ PRN PRN Reason: Insomnia Stop: 05/04/19 17:30 Hydroxyzine HCl (Vistaril) 25 mg PO Q4H PRN PRN Reason: Anxiety Stop: 05/04/19 17:30 Ibuprofen (Motrin) 600 mg PO Q8H PRN PRN Reason: Pain Stop: 05/21/19 10:12 Magnesium Hydroxide (Milk Of Magnesia) 30 ml PO DAILY PRN PRN Reason: Constipation Stop: 05/04/19 17:30 Olanzapine (Zyprexa) 10 mg IM DAILY PRN PRN Reason: REFUSE ABILIFY Stop: 05/14/19 11:44 Quetiapine Fumarate (Seroquel) 200 mg PO HS PRN PRN Reason: Sleep Stop: 05/14/19 11:39 Sertraline HCl (Zoloft) 200 mg PO QAM SETH Stop: 05/05/19 08:59 Last Admin: 04/27/19 08:33 Dose: 200 mg Documented by: Simvastatin (Zocor) 40 mg PO HS SETH Stop: 05/04/19 21:59 Last Admin: 04/26/19 21:11 Dose: 40 mg Documented by: Sodium Chloride ([place] Nasal) 1 - 2 sprays NA PRN PRN PRN Reason: Nasal Dryness/Congestion Stop: 05/04/19 17:30 Trazodone HCl (Desyrel) 100 mg PO HS PRN PRN Reason: Sleep Stop: 05/04/19 17:33 Warfarin Sodium (Coumadin) 10 mg PO [id number]@1600 SETH Stop: 05/25/19 15:59 Last Admin: 04/25/19 16:12 Dose: 10 mg Documented by: Warfarin Sodium (Coumadin) 7.5 mg PO [id number]@1600 SETH Stop: 05/26/19 15:59 Last Admin: 04/26/19 16:15 Dose: 7.5 mg Documented by: Mental Health & Subst Abuse Tx Psychiatrist Name of Psychiatrist: [facility] - Dr. Harrington Psychiatrist's Time of Appointment with Psychiatrist: Dr Todd Psychiatric Appointment Comment: [address] [place] [address] [address], [place] [address] Therapist Name of Therapist: [facility] - Juan Menendez [facility] Therapist's Therapy Appointment Comment: [address] [facility] Name of Collar Setter [facility]lock: [facility] Service Unit - Av Perez Phone Number for Collar Setter Overlock: [phone] Case Management Appointment Comment: [address] [facility] [place], [address], [place] Post Discharge Appointments Primary Care Physician Name Of Family Doctor: [facility] - Dr. Catalina Todd Primary Care Provider Appointment Comment: [address] [place] [address] [place] [address] Contact Information Discharge Discharge [address]: [address] [place] [address] CPT Code CPT Code 12291 (1) DVT (deep venous thrombosis) DVT location: lower extremity (2) Cellulitis Site of cellulitis: unspecified site Qualified Code(s): L03.90 - Cellulitis, unspecified (3) Depression Active/Remission status: currently active Depression Type: major depressive disorder Major depression episode severity: severe Major depression recurrence: recurrent Psychotic features: with psychotic features Qualified Code(s): F33.3 - Major depressive disorder, recurrent, severe with psychotic symptoms (4) Hyperlipidemia Hyperlipidemia type: unspecified Qualified Code(s): E78.5 - Hyperlipidemia, unspecified
[2019-04-27] MEDS: WARFARIN SOD 10 MG TAB PO SCH (16:03)
[2019-04-27] MEDS: SIMVASTATIN 40 MG TAB PO SCH (21:15)
[2019-04-28] MEDS: SERTRALINE HCL 100 MG TABLET PO SCH (08:27)
[2019-04-28] MEDS: ARIPiprazole 10 MG TAB PO SCH (08:27)
[2019-04-28 08:32] LABS: INR 2.4 (0.9-1.1); Prothrombin Time 23.5 Seconds (9.0-12.0)
--- NOTE | 2019-04-28 10:16 | Psychiatric Progress Note ---
Date of Service April 28, 2019 Impression / Recommendations Surya Howard is a 59-year-old single male with a history of severe psychotic depression and generalized anxiety, as well as long-standing treatment nonadherence which has resulted in multiple involuntary outpatient commitments, who was just discharged from our unit 2 weeks prior to being hospitalized medically for DVT and lower extremity cellulitis in the context of medication nonadherence at home. The patient's has been treated with aripiprazole and sertraline for his psychotic depression. The dose of aripiprazole has been titrated to a dose of 30 mg a day, and the dose of sertraline has been titrated to a dose of 200 mg a day. Pt had a meeting with his assistant case manager and [facility] to discuss discharge possibilities. Pt continues to be isolative and refuses various prescribed medications. Discharge to an unsupervised setting would not be advised given his history of medication non-compliance and risk of harm with inability to reliably attend to ADLs at home. Inpatient psychiatric treatment remains medically necessary at this time. (1) Depression: 04/05 -continue sertraline 200 mg daily and quetiapine 50 mg at bedtime, which he is intermittently refusing. If he does not become more compliant with oral medications, we will pursue medications over objection, as his psychotic depression is unlikely to remit without medication, and he has responded well to these medications in the past. -Get records from outpatient psychiatrist, and coordinate care with his outpatient therapist and assistant case manager. -Brother, Amie, is his power of english adjunct faculty we will enlist his assistance with medical decision making as the patient currently lacks capacity to refuse the recommended treatment. -Encourage patient to be out of bed during the day and participating in groups and therapy. Consider locking his door during group time if he is unable to do this on his own. -He was on an involuntary outpatient commitment, so we will file for a conversi on hearing to convert to 304 involuntary treatment. 04/06 -patient has refused sertraline the past 2 days, and although he took quetiapine the first night, he refused it last night. He is refusing all groups, has not bathed, and is refusing to eat and less staff bring food to his room. -We will place him in a medically necessary private room due to severity of mood and psychotic symptoms, and request staff to lock his door during group time him to be more engaged in treatment. -Staff contacted the patient's [id number], who clarified that the patient does not actually have a power of english adjunct faculty, although this has been documented on admission here. She reported the family is frustrated and concerned with the patient's lack of ability to care for his mental and physical needs. The family has been exploring supportive living, specifically [facility]. -Patient's assistant case manager, Av Perez, will come in for a meeting tomorrow. 04/07 -improved medication compliance with staff support; continue sertraline 200 mg daily and increase quetiapine to 100 mg at bedtime. -district loss prevention manager, Av Perez, is coming to meet with patient today. 04/08 - Continue sertraline 200mg and increase quetiapine to 150mg HS. -On 304 commitment. Continue to encourage him to sign YAYA for [facility] 04/09 -pt refused quetiapine last night, having dose tonight be 1/2 of 300mg pill of quetiapine to help lower pill burden and might hold his lipid med tonight as well to help improve likelihood of pt taking his atypical antipsychotic dose that seems to be medication most needed at this time. goal is to titrate up quetiapine. Pharmacy has 50,100,200, and 300mg size pills, (in Xr form there are 150mg size, if switching to xr in future would advise dosing around 8pm. addressed pt delusional thinking and attempted reality testing. 04/10 took seroquel 150mg dose on 04/09 and noticing some improvement today pt might be improving some and might be more open to treatment ceased MNPR at this time 04/11 - Continue sertraline 200mg daily - will titration quetiapine to 200mg daily, can give previous dose of 150mg (1/2 of 300mg tablet) if refuses - Having a rather difficult day today, limited engagement in programming, continues to believe he is dying 04/12 - Continue as above. Pt refused quetiapine last evening, to receive titrated dose of 200mg tonight if compliant - Had a decent morning, though returned to fixation on dying by the afternoon 04/13 -Continue sertraline, has been taking the 200 mg dose for the past 7 days. -Continues to intermittently refuse quetiapine, only taking it on 50% of days in the past week, and received first dose of 200 mg at bedtime last night. He is unwilling to discuss other atypical antipsychotics and remains floridly d elusional without insight. He lacks capacity to refuse treatment recommendations for an antipsychotic, as 1 of his delusions is that he has diabetes and is going to at any moment, so believes any treatment is futile. Recommend medications over objection, with a trial of either aripiprazole or paliperidone to target psychotic symptoms, with an IM of olanzapine for refusal of oral medication. If he responds well and tolerates the oral antipsychotic, will then transition him to the long-acting injectable form. We will asked Dr. Delarosa to see him tomorrow for a second opinion. 04/14 - The patient continues to intermittently refuse quetiapine, only taking it on 50% of days in the past week. Today, he tells me that he will refuse quetiapine and all medications, stating, "What's the use? I'm dying." He is unwilling to discuss other antipsychotics and I agree with Dr. Vann's finding that he remains floridly delusional without insight. He lacks capacity to refuse treatment recommendations for an antipsychotic, as one of his delusions is that he has diabetes (he doesn't) and is going to "maybe right now." Within this context he tells me that treatment is futile and he will refuse to take what we are prescribing to him.. I endorse the recommendation for medications over objection. I have ordered aripiprazole 10 mg daily by mouth to treat the patient's psychosis, and I have ordered olanzapine 10 mg IM for refusal of p.o. aripiprazole. Without consistent application of antipsychotic medications at the appropriate dose, it can reasonably be expected that the patient will remain dangerous to himself to the degree that inpatient psychiatric hospitalization will remain medically necessary. 04/15 -Quetiapine was discontinued in favor of aripiprazole, with an order for olanzapine IM over objection if the patient declines aripiprazole. He did, in fact, voluntarily take aripiprazole 10 mg yesterday and this morning, and reports that he did not have any difficulty tolerating it, either yesterday, or this morning. -He has been refusing sertraline. An issue may be that he may not have realized that sertraline and Zoloft are the same medication. Today, he tells me that he has a past history of febrile response to Zoloft. I have explained to him that our finding is that he is suffering from a major depression that has caused him to lose touch with certain aspects of reality and, for that reason, we feel very strongly that he must take an antidepressant medication as part of recovery. The patient tells us that he will now agree to take sertraline (Zol oft) but this remains to be seen. 04/16 -So far he has been compliant with increased dose of Abilify. Appears he would likely benefit from long-acting injectable if he continues to tolerate well 04/17 -Appears more depressive today. -Remains delusionally preoccupied -Increase Abilify to 20 mg daily. Has been compliant 04/18 -Continue aripiprazole and sertraline, and discontinue lorazepam. Encourage patient to be out of bed and participating in treatment. 04/19 - Continue as above - Pt reporting improvement in headache after receiving a heating pad - will continue to monitor. Possible etiology includes current environment (dry air, bright lights, ect.), medication side effect, or other medical concern. Will continue to observe for now, consider hospitalist bentley given his ant icoagulation history to determine if NSAIDs could be appropriately considered in his case for intermittent and limited use 04/20 - Continue current medication regimen - Continue symptomatic treatment for headache, reporting Tylenol is effective although he is requiring routine dosing 04/21 - Titrating aripiprazole to 30mg qAM starting tomorrow; continue sertraline 200mg daily. Pt continues to be focused on number of pills being given to him, but this is difficult to rectify based on available pharmacy dosing of ordered medications - Tylenol remains helpful for headache symptoms, but symptoms return throughout the day - Discussed persistent reports of headache with hospitalist - felt to be ok to offer ibuprofen prn for headache symptoms despite anticoagulation status; continue to monitor - Anticipate meeting with [facility] representatives next week 04/22 -The patient does report improvement in his depression, although he also says that he feels that his depression is "so severe" that medications are unlikely to be more than a "drop in the bucket." -The patient's affect is noticeably brighter and more animated. Today, he laughed several times, appropriately, during our encounter. -The plan is to continue sertraline 200 mg daily in combination with aripiprazole 30 mg daily. -We are also emphasizing reality testing and illness teaching through individual and group therapies. The patient remains active and activity therapy and tells us that this is 1 of his favorite parts of hospitalization. 04/25 - Continue current medication regimen - Pt has been more isolative recently - Continue to encourage participation in group programming 04/26 - Continue current medication regimen - Feeling better physically today - Continue to encourage group participation - Meeting with [facility]ham and assistant case manager today 04/27 - Continue current medication regimen - Meeting with [facility]win Parham yesterday, who will call regarding acceptance - Continue to explore housing possibilities, as patient feels he will not be able to live independently 04/28 - Continue current medication regimen, condition seems to be improving mildly over the past 2-3 days - Awaiting decision for Ashwin Parham regarding acceptance to their personal mcc for discharge - will explore other options with patient as well - Continue to encourage group participation (2) Catatonia: 04/05 -continue Lorazepam 2 mg twice daily and taper over hospital stay. Continue to treat underlying medical conditions as below. 04/06 -decrease Lorazepam to 1 mg twice daily, as he is intermittently refusing doses and it has not been overly helpful. 04/13 -patient has been refusing the at bedtime dose of lorazepam, so will discontinue it. The morning dose can likely be discontinued prior to discharge. 04/14 -The patient is poorly responsive, but not catatonic at this point. 04/18 -discontinue lorazepam, as patient retreating to his bed and want to minimize sedating effects. (3) Generalized anxiety disorder: 04/05 -continue SSRI and lorazepam as above, offer hydroxyzine as needed for anxiety. Consider resuming buspirone if indicated. 04/14 -The patient's anxious distress at this point seems primarily attributable to his delusional believes that he is moribund. Our plan is to continue to aggressively treat his psychosis and reassess anxious distress once the patient's psychotic features have resolved. 04/15 -The patient appears to be somewhat less anxious today, a circumstance that may be attributable to aripiprazole. Hopefully, the patient will also begin to take sertraline as prescribed. 04/22 -The patient appears to be less anxious today and tells us that he is feeling more relaxed and less upset. 04/25 - Continues to be preoccupied with perceived physical deterioration, continue current medication regimen (4) Cellulitis: 04/05 -complete course of Keflex, last dose 04/08/2019. Infection is resolving. 04/22 -Infection appears to have resolved. (5) DVT (deep venous thrombosis): 04/05 -continue Coumadin 5 mg daily, daily PT/INR, and Lovenox until INR is therapeutic. Coordinate care with Dr. Loyola, who sees him at the anticoagulation clinic. 04/07 -INR is 1.2 today, continue Coumadin and Lovenox. Coordinate with Dr. Loyola 04/11 - Reviewed consultation recommendations - discussed recs with Dr. Loyola via phone - Orders provided for patient to receive 15mg of warfarin today, then a omar edule of 10mg daily SuTuThSa, and 5mg daily MWF - Recommended that enoxaparin continue until his INR is therapeutic for two days (two day overlap) - Dr. Loyola to continue to follow 04/14 -Anticoagulation therapy continues. PT and PTT values are as expected. -The patient reports no pain or tenderness in his lower extremities. 04/15 -Consulted telephonically yesterday, telephonically, with hematology. They are following, and agree that the patient's current lab values are in the target range. Several medication adjustments are being planned, and the patient remains asymptomatic. 04/16 -PT INR 26.7 and 2.8 respectively today 04/17 -INR 2.9 today 04/22 -The patient's INR levels have been steadily rising and this morning's value was 3.5. The addition of sertraline to the patient's medication regimen may be impacting upon his coagulation values. The patient remains asymptomatic, in terms of evidence of a pulmonary embolism. We will hold his daily warfarin level today, repeat the warfarin coagulation studies in the morning, and will plan to resume warfarin (at the half dose) on Thursday with a full dose on Thursday, as indicated by his lab values. 04/24 --clarification of lab frequency with coag clinic tomorrow 04/25, scheduled for 5 mg Coumadin this pm per Dr. Loyola. 04/25 - Restart coumadin regimen prior to its holding on 04/22 - Restart daily lab draws - PT INR is 18.2 and 1.9 respectively today - Appreciate ongoing input from anticoagulation clinic regarding recommendations 04/27 - Coumadin schedule changed per Dr. Loyola, who is following - Call placed to discuss possibility of alternative anticoagulation medications 04/28 - After consulting anticoagulation clinic to discuss alternative medication considerations, option of Eliquis 5mg BID was discussed but cost was reportedly an issue in the past - Medication was called to patient's pharmacy, who reported patient's co-pay for a one-month supply would be $345, which is not a financially feasible option for the patient at this time (6) Hyperlipidemia: 04/05 -continue home statin. 04/09 and 04/10 aiming for pt to take med but comfortable with pt refusing this med at current time if helps him obtain his other medications, aim is for improved meed compliance occur as psychiatrically improves, lexy since currently pt pill load a factor in pt compliance Inventory Assets Strengths: Educated, supportive family Needs: Compliance with treatment, increase community supports Risk Factors Assessment Male: Yes : Yes Do You Have Access To A Gun?: No Health Problems: Yes Mental Health Diagnoses: Yes Substance Use Disorders: No Previous Attempt: Yes Family History of Suicide: No Previous Psychiatric Hospitalization: Yes Hopelessness: Yes Smoker: No Protective Factors Assessment [employer] Beliefs: No : No Responsible for Young Children: No Employed: No Stable Relationships: Yes Supportive Family: Yes Good Rapport with Provider: No Interval History Identifying Information YINKA ROMERO is a 59-year-old M who currently lives alone in an [place], has a history of depression with psychosis, generalized anxiety disorder, treatment nonadherence and was on an involuntary outpatient commitment, and was admitted on 04/04/19 16:39 on a 302 involuntary commitment for depression with psychosis, treatment nonadherence, and inability to care for himself. He is on a 304 commitment as of 04/08/19. Chief Complaint "Oh, ok maybe. Yesterday seemed to be an ok day. Today's not so bad either." Review of Systems Notes Constitutional: reports mild dizziness today - pt believing this is related to his daily blood draws Cardiovascular: denied Respiratory: denied Gastrointestinal: denied Neurological: denied Psychiatric: denies symptoms other than stated above Total of at least 10 systems reviewed, pertinent positives as above and in HPI. Sleep Information Total Hours of Sleep: 7.5 Sleep Comments: pt on q-15 minute checks Meal Information Percent Meal Consumed - Breakfast: 100 Percent Meal Consumed - Lunch: 100 Percent Meal Consumed - Dinner: 100 Nutrition Comment: documented from meal record worksheet Subjective Subjective Patient was seen & assessed and interval progress reviewed with nursing and social work. Staff report the patient has been attending more programming over the past few days, appearing to be less isolative. We have been told we will be informed about [facility] as a potential discharge option by 05/02. Pt was seen today to assess progress since admission. He is found to be sitting in the day area with peers, watching TV. Pt states that he is feeling "ok" today, admitting that yesterday was a decent day for him. Pt denies SI, but states that his mood is not great. His reason for this is related to ongoing daily blood draws - and his perception that the blood draws are leading to dizziness and other physical concerns. We discussed adequate hydration during the day, but also continuing to be as active as he feels able during the day. Pt states that he is hopeful for a good day today. We discussed the possibility of [facility] on discharge - he states, "if I go there and do everything they want me to do, I might as well just go home." Pt remains concerned about the expectation that her be "self-sufficient" when he leaves the hospital. We discussed that a personal mcc would allow him to maintain his independence, but also offer him beneficial support after discharge. He remains unsure about this, as he questions if he will need a higher level of care. He has been attending to ADLs here, and was reminded that we are continuing to work with him to regain confidence in himself. Pt denies acute needs at this time. Physical Exam Psychiatric Orientation: alert, oriented x 3 and cooperative (superficially) Apperance: appropriately dressed (wearing a long-sleeve t-shirt and scrub pants), appropriately groomed and appeared stated age Facial hair is getting long; however, patient seems to be attending to his grooming more at this point in his stay Eye Contact: + fair eye contact Motor Behavior: steady gait and station and no abnormal motor movements Speech: normal rate/rhythm/volume of speech Affect: + depressed affect Mood: + depressed mood Thought Process: + perseveration (focus of conversations remains on various physical concerns) and + concrete thought process Thought Content: + preoccupation (with physical complaints, today he is focused on daily blood draws), + cognitive distortions, + hopelessness and + self deprecation Suicidal Thoughts: denies suicidal thoughts and denies suicidal intent Hallucinations: no auditory hallucinations and no visual hallucinations Cognition: attention grossly intact and language grossly intact Insight: + impaired insight Judgement: + fair judgement Vital Signs (Past 24 Hours) Last Vital Signs Temp 36.5 C 04/28/19 06:00 Pulse 82 04/28/19 06:54 Resp 18 04/28/19 06:00 BP 121/73 04/28/19 06:54 Pulse Ox 99 04/09/19 06:00 Results & Data Laboratory Results Laboratory Results - last 24 hr 04/28/19 08:02 PT 23.5 H INR 2.4 H Current Inpatient Medications Current Inpatient Medications: Current Inpatient Medications Acetaminophen (Tylenol) 650 mg PO Q4H PRN PRN Reason: Headache or Minor Fever Stop: 05/04/19 17:30 Last Admin: 04/24/19 12:46 Dose: 650 mg Documented by: Al Hydrox/Mg Hydrox/Simethicone (Maalox) 30 ml PO Q4H PRN PRN Reason: GI Upset Stop: 05/04/19 17:30 Aripiprazole (Abilify) 30 mg PO QAM [facility] Stop: 05/22/19 08:59 Last Admin: 04/28/19 08:27 Dose: 30 mg Documented by: Hydroxyzine HCl (Vistaril) 50 mg PO HSZ PRN PRN Reason: Insomnia Stop: 05/04/19 17:30 Hydroxyzine HCl (Vistaril) 25 mg PO Q4H PRN PRN Reason: Anxiety Stop: 05/04/19 17:30 Ibuprofen (Motrin) 600 mg PO Q8H PRN PRN Reason: Pain Stop: 05/21/19 10:12 Magnesium Hydroxide (Milk Of Magnesia) 30 ml PO DAILY PRN PRN Reason: Constipation Stop: 05/04/19 17:30 Olanzapine (Zyprexa) 10 mg IM DAILY PRN PRN Reason: REFUSE ABILIFY Stop: 05/14/19 11:44 Quetiapine Fumarate (Seroquel) 200 mg PO HS PRN PRN Reason: Sleep Stop: 05/14/19 11:39 Sertraline HCl (Zoloft) 200 mg PO QAM OMAR Stop: 05/05/19 08:59 Last Admin: 04/28/19 08:27 Dose: 200 mg Documented by: Simvastatin (Zocor) 40 mg PO HS OMAR Stop: 05/04/19 21:59 Last Admin: 04/27/19 21:15 Dose: 40 mg Documented by: Sodium Chloride ([place]arrow Nasal) 1 - 2 sprays NA PRN PRN PRN Reason: Nasal Dryness/Congestion Stop: 05/04/19 17:30 Trazodone HCl (Desyrel) 100 mg PO HS PRN PRN Reason: Sleep Stop: 05/04/19 17:33 Warfarin Sodium (Coumadin) 10 mg PO SuMoWeFr@1600 [facility] Stop: 05/25/19 15:59 Last Admin: 04/27/19 16:03 Dose: 10 mg Documented by: Warfarin Sodium (Coumadin) 7.5 mg PO TuThSa@1600 O[facility] Stop: 05/26/19 15:59 Last Admin: 04/26/19 16:15 Dose: 7.5 mg Documented by: Mental Health & Subst Abuse Tx Psychiatrist Name of Psychiatrist: [facility] - Dr. Harrington Psychiatrist's Time of Appointment with Psychiatrist: Dr Todd Psychiatric Appointment Comment: [address] [place] [address] [address], [place] [address] Therapist Name of Therapist: [employer] [facility] - Juan Menendez [facility] Therapist's Therapy Appointment Comment: [address] [facility] Insurance Claims Adjuster Name of Insurance Claims Adjuster: [facility] - Av Perez Phone Number for Insurance Claims Adjuster: [phone] Case Management Appointment Comment: [address] [facility], [address], [place] Post Discharge Appointments Primary Care Physician Name Of Family Doctor: [facility] - Dr. Catalina Todd Primary Care Provider Appointment Comment: [address] [place] [address] [place] [address] Contact Information Discharge Discharge Address: [address] [place] [address] CPT Code CPT Code 91986 (1) Depression Depression Type: major depressive disorder Major depression recurrence: recurrent Active/Remission status: currently active Major depression episode severity: severe Psychotic features: with psychotic features Qualified Code(s): F33.3 - Major depressive disorder, recurrent, severe with psychotic symptoms (2) Cellulitis Site of cellulitis: unspecified site Qualified Code(s): L03.90 - Cellulitis, unspecified (3) DVT (deep venous thrombosis) DVT location: lower extremity (4) Hyperlipidemia Hyperlipidemia type: unspecified Qualified Code(s): E78.5 - Hyperlipidemia, unspecified
[2019-04-28] MEDS: WARFARIN SOD 7.5 MG TAB PO SCH (15:46)
[2019-04-28] MEDS: SIMVASTATIN 40 MG TAB PO SCH (21:04)
[2019-04-29] MEDS: SERTRALINE HCL 100 MG TABLET PO SCH (08:23)
[2019-04-29] MEDS: ARIPiprazole 10 MG TAB PO SCH (08:23)
[2019-04-29 08:39] LABS: Prothrombin Time 28.2 Seconds (9.0-12.0)
--- NOTE | 2019-04-29 09:36 | Psychiatric Progress Note ---
Date of Service April 29, 2019 Impression / Recommendations Surya Howard is a 59-year-old single male with a history of severe psychotic depression and generalized anxiety, as well as long-standing treatment nonadherence which has resulted in multiple involuntary outpatient commitments, who was just discharged from our unit 2 weeks prior to being hospitalized medically for DVT and lower extremity cellulitis in the context of medication nonadherence at home. The patient's has been treated with aripiprazole and sertraline for his psychotic depression. The dose of aripiprazole has been titrated to a dose of 30 mg a day, and the dose of sertraline has been titrated to a dose of 200 mg a day. Pt had a meeting with his family independence case manager and [facility] to discuss discharge possibilities. Pt continues to be isolative and refuses various prescribed medications. Discharge to an unsupervised setting would not be advised given his history of medication non-compliance and risk of harm with inability to reliably attend to ADLs at home. Inpatient psychiatric treatment remains medically necessary at this time. (1) Depression: 04/05 -continue sertraline 200 mg daily and quetiapine 50 mg at bedtime, which he is intermittently refusing. If he does not become more compliant with oral medications, we will pursue medications over objection, as his psychotic depression is unlikely to remit without medication, and he has responded well to these medications in the past. -Get records from outpatient psychiatrist, and coordinate care with his outpatient therapist and family independence case manager. -Brother, Amie, is his power of courtroom clerk we will enlist his assistance with medical decision making as the patient currently lacks capacity to refuse the recommended treatment. -Encourage patient to be out of bed during the day and participating in groups and therapy. Consider locking his door during group time if he is unable to do this on his own. -He was on an involuntary outpatient commitment, so we will file for a conversi on hearing to convert to 304 involuntary treatment. 04/06 -patient has refused sertraline the past 2 days, and although he took quetiapine the first night, he refused it last night. He is refusing all groups, has not bathed, and is refusing to eat and less staff bring food to his room. -We will place him in a medically necessary private room due to severity of mood and psychotic symptoms, and request staff to lock his door during group time him to be more engaged in treatment. -Staff contacted the patient's [id number], who clarified that the patient does not actually have a power of courtroom clerk, although this has been documented on admission here. She reported the family is frustrated and concerned with the patient's lack of ability to care for his mental and physical needs. The family has been exploring supportive living, specifically [facility]. -Patient's family independence case manager, Av Perez, will come in for a meeting tomorrow. 04/07 -improved medication compliance with staff support; continue sertraline 200 mg daily and increase quetiapine to 100 mg at bedtime. -project product manager, Av Perez, is coming to meet with patient today. 04/08 - Continue sertraline 200mg and increase quetiapine to 150mg HS. -On 304 commitment. Continue to encourage him to sign YAYA for [facility] 04/09 -pt refused quetiapine last night, having dose tonight be 1/2 of 300mg pill of quetiapine to help lower pill burden and might hold his lipid med tonight as well to help improve likelihood of pt taking his atypical antipsychotic dose that seems to be medication most needed at this time. goal is to titrate up quetiapine. Pharmacy has 50,100,200, and 300mg size pills, (in Xr form there are 150mg size, if switching to xr in future would advise dosing around 8pm. addressed pt delusional thinking and attempted reality testing. 04/10 took seroquel 150mg dose on 04/09 and noticing some improvement today pt might be improving some and might be more open to treatment ceased MNPR at this time 04/11 - Continue sertraline 200mg daily - will titration quetiapine to 200mg daily, can give previous dose of 150mg (1/2 of 300mg tablet) if refuses - Having a rather difficult day today, limited engagement in programming, continues to believe he is dying 04/12 - Continue as above. Pt refused quetiapine last evening, to receive titrated dose of 200mg tonight if compliant - Had a decent morning, though returned to fixation on dying by the afternoon 04/13 -Continue sertraline, has been taking the 200 mg dose for the past 7 days. -Continues to intermittently refuse quetiapine, only taking it on 50% of days in the past week, and received first dose of 200 mg at bedtime last night. He is unwilling to discuss other atypical antipsychotics and remains floridly d elusional without insight. He lacks capacity to refuse treatment recommendations for an antipsychotic, as 1 of his delusions is that he has diabetes and is going to at any moment, so believes any treatment is futile. Recommend medications over objection, with a trial of either aripiprazole or paliperidone to target psychotic symptoms, with an IM of olanzapine for refusal of oral medication. If he responds well and tolerates the oral antipsychotic, will then transition him to the long-acting injectable form. We will asked Dr. Delarosa to see him tomorrow for a second opinion. 04/14 - The patient continues to intermittently refuse quetiapine, only taking it on 50% of days in the past week. Today, he tells me that he will refuse quetiapine and all medications, stating, "What's the use? I'm dying." He is unwilling to discuss other antipsychotics and I agree with Dr. Vann's finding that he remains floridly delusional without insight. He lacks capacity to refuse treatment recommendations for an antipsychotic, as one of his delusions is that he has diabetes (he doesn't) and is going to "maybe right now." Within this context he tells me that treatment is futile and he will refuse to take what we are prescribing to him.. I endorse the recommendation for medications over objection. I have ordered aripiprazole 10 mg daily by mouth to treat the patient's psychosis, and I have ordered olanzapine 10 mg IM for refusal of p.o. aripiprazole. Without consistent application of antipsychotic medications at the appropriate dose, it can reasonably be expected that the patient will remain dangerous to himself to the degree that inpatient psychiatric hospitalization will remain medically necessary. 04/15 -Quetiapine was discontinued in favor of aripiprazole, with an order for olanzapine IM over objection if the patient declines aripiprazole. He did, in fact, voluntarily take aripiprazole 10 mg yesterday and this morning, and reports that he did not have any difficulty tolerating it, either yesterday, or this morning. -He has been refusing sertraline. An issue may be that he may not have realized that sertraline and Zoloft are the same medication. Today, he tells me that he has a past history of febrile response to Zoloft. I have explained to him that our finding is that he is suffering from a major depression that has caused him to lose touch with certain aspects of reality and, for that reason, we feel very strongly that he must take an antidepressant medication as part of recovery. The patient tells us that he will now agree to take sertraline (Zol oft) but this remains to be seen. 04/16 -So far he has been compliant with increased dose of Abilify. Appears he would likely benefit from long-acting injectable if he continues to tolerate well 04/17 -Appears more depressive today. -Remains delusionally preoccupied -Increase Abilify to 20 mg daily. Has been compliant 04/18 -Continue aripiprazole and sertraline, and discontinue lorazepam. Encourage patient to be out of bed and participating in treatment. 04/19 - Continue as above - Pt reporting improvement in headache after receiving a heating pad - will continue to monitor. Possible etiology includes current environment (dry air, bright lights, ect.), medication side effect, or other medical concern. Will continue to observe for now, consider hospitalist bentley given his ant icoagulation history to determine if NSAIDs could be appropriately considered in his case for intermittent and limited use 04/20 - Continue current medication regimen - Continue symptomatic treatment for headache, reporting Tylenol is effective although he is requiring routine dosing 04/21 - Titrating aripiprazole to 30mg qAM starting tomorrow; continue sertraline 200mg daily. Pt continues to be focused on number of pills being given to him, but this is difficult to rectify based on available pharmacy dosing of ordered medications - Tylenol remains helpful for headache symptoms, but symptoms return throughout the day - Discussed persistent reports of headache with hospitalist - felt to be ok to offer ibuprofen prn for headache symptoms despite anticoagulation status; continue to monitor - Anticipate meeting with [facility] representatives next week 04/22 -The patient does report improvement in his depression, although he also says that he feels that his depression is "so severe" that medications are unlikely to be more than a "drop in the bucket." -The patient's affect is noticeably brighter and more animated. Today, he laughed several times, appropriately, during our encounter. -The plan is to continue sertraline 200 mg daily in combination with aripiprazole 30 mg daily. -We are also emphasizing reality testing and illness teaching through individual and group therapies. The patient remains active and activity therapy and tells us that this is 1 of his favorite parts of hospitalization. 04/25 - Continue current medication regimen - Pt has been more isolative recently - Continue to encourage participation in group programming 04/26 - Continue current medication regimen - Feeling better physically today - Continue to encourage group participation - Meeting with Ashwin Parham and family independence case manager today 04/27 - Continue current medication regimen - Meeting with Ashwin Parham yesterday, who will call regarding acceptance - Continue to explore housing possibilities, as patient feels he will not be able to live independently 04/28 - 04/29 - Continue current medication regimen, condition seems to be improving mildly over the past 2-3 days - Awaiting decision for Ashwin Parham regarding acceptance to their personal half-way for discharge - will explore other options with patient as well - Continue to encourage group participation (2) Catatonia: 04/05 -continue Lorazepam 2 mg twice daily and taper over hospital stay. Continue to treat underlying medical conditions as below. 04/06 -decrease Lorazepam to 1 mg twice daily, as he is intermittently refusing doses and it has not been overly helpful. 04/13 -patient has been refusing the at bedtime dose of lorazepam, so will discontinue it. The morning dose can likely be discontinued prior to discharge. 04/14 -The patient is poorly responsive, but not catatonic at this point. 04/18 -discontinue lorazepam, as patient retreating to his bed and want to minimize sedating effects. (3) Generalized anxiety disorder: 04/05 -continue SSRI and lorazepam as above, offer hydroxyzine as needed for anxiety. Consider resuming buspirone if indicated. 04/14 -The patient's anxious distress at this point seems primarily attributable to his delusional believes that he is moribund. Our plan is to continue to aggress ively treat his psychosis and reassess anxious distress once the patient's psychotic features have resolved. 04/15 -The patient appears to be somewhat less anxious today, a circumstance that may be attributable to aripiprazole. Hopefully, the patient will also begin to take sertraline as prescribed. 04/22 -The patient appears to be less anxious today and tells us that he is feeling more relaxed and less upset. 04/25 - Continues to be preoccupied with perceived physical deterioration, continue current medication regimen (4) Cellulitis: 04/05 -complete course of Keflex, last dose 04/08/2019. Infection is resolving. 04/22 -Infection appears to have resolved. (5) DVT (deep venous thrombosis): 04/05 -continue Coumadin 5 mg daily, daily PT/INR, and Lovenox until INR is therapeutic. Coordinate care with Dr. Loyola, who sees him at the anticoagulation clinic. 04/07 -INR is 1.2 today, continue Coumadin and Lovenox. Coordinate with Dr. Loyola 04/11 - Reviewed consultation recommendations - discussed recs with Dr. Loyola via phone - Orders provided for patient to receive 15mg of warfarin today, then a schedule of 10mg daily SuTuThSa, and 5mg daily MWF - Recommended that enoxaparin continue until his INR is therapeutic for two days (two day overlap) - Dr. Loyola to continue to follow 04/14 -Anticoagulation therapy continues. PT and PTT values are as expected. -The patient reports no pain or tenderness in his lower extremities. 04/15 -Consulted telephonically yesterday, telephonically, with hematology. They are following, and agree that the patient's current lab values are in the target range. Several medication adjustments are being planned, and the patient remains asymptomatic. 04/16 -PT INR 26.7 and 2.8 respectively today 04/17 -INR 2.9 today 04/22 -The patient's INR levels have been steadily rising and this morning's value was 3.5. The addition of sertraline to the patient's medication regimen may be impacting upon his coagulation values. The patient remains asymptomatic, in terms of evidence of a pulmonary embolism. We will hold his daily warfarin level today, repeat the warfarin coagulation studies in the morning, and will plan to resume warfarin (at the half dose) on Thursday with a full dose on Thursday, as indicated by his lab values. 04/24 --clarification of lab frequency with coag clinic tomorrow 04/25, scheduled for 5 mg Coumadin this pm per Dr. Loyola. 04/25 - Restart coumadin regimen prior to its holding on 04/22 - Restart daily lab draws - PT INR is 18.2 and 1.9 respectively today - Appreciate ongoing input from anticoagulation clinic regarding recommendations 04/27 - Coumadin schedule changed per Dr. Loyola, who is following - Call placed to discuss possibility of alternative anticoagulation medications 04/28 - After consulting anticoagulation clinic to discuss alternative medication considerations, option of Eliquis 5mg BID was discussed but cost was reportedly an issue in the past - Medication was called to patient's pharmacy, who reported patient's co-pay for a one-month supply would be $345, which is not a financially feasible option for the patient at this time (6) Hyperlipidemia: 04/05 -continue home statin. 04/09 and 04/10 aiming for pt to take med but comfortable with pt refusing this med at current time if helps him obtain his other medications, aim is for improved meed compliance occur as psychiatrically improves, lexy since currently pt pill load a factor in pt compliance Inventory Assets Strengths: Educated, supportive family Needs: Compliance with treatment, increase community supports Risk Factors Assessment Male: Yes : Yes Do You Have Access To A Gun?: No Health Problems: Yes Mental Health Diagnoses: Yes Substance Use Disorders: No Previous Attempt: Yes Family History of Suicide: No Previous Psychiatric Hospitalization: Yes Hopelessness: Yes Smoker: No Protective Factors Assessment Yarsani Beliefs: No : No Responsible for Young Children: No Employed: No Stable Relationships: Yes Supportive Family: Yes Good Rapport with Provider: No Interval History Identifying Information YINKA ROMERO is a 59-year-old M who currently lives alone in an [place], has a history of depression with psychosis, generalized anxiety disorder, treatment nonadherence and was on an involuntary outpatient commitment, and was admitted on 04/04/19 16:39 on a 302 involuntary commitment for depression with psychosis, treatment nonadherence, and inability to care for himself. He is on a 304 commitment as of 04/08/19. Chief Complaint "Ah, gees....I don't think I'm ever gonna get rest in this place." Review of Systems Notes Constitutional: denies dizziness today; but continues to report vague statements of not feeling well Cardiovascular: denied Respiratory: denied Gastrointestinal: denied Neurological: denied Psychiatric: denies symptoms other than stated above Total of at least 10 systems reviewed, pertinent positives as above and in HPI. Sleep Information Total Hours of Sleep: 6.5 Sleep Comments: pt on q-15 minute checks Meal Information Percent Meal Consumed - Breakfast: 100 Percent Meal Consumed - Lunch: 100 Percent Meal Consumed - Dinner: 100 Nutrition Comment: documented from meal record worksheet Subjective Subjective Patient was seen & assessed and interval progress reviewed with treatment team. Staff report the patient has been able to have more reality-based conversations, but continues to appear very depressed. In some conversations with staff, he is able to recognize this and comment on it. Pt is to have a meeting with his family independence case manager today. We are awaiting call from [facility] regarding acceptance or denial for their supportive living community. Pt was seen today to assess progress since admission. Pt reports frustration at initial request to interview him, as he implies frequent interrupts and little time to rest today. Pt has been observed to be attending groups throughout the morning, and reportedly had a decent visit with his family independence case manager. He states that his mood is "about the same", but admits "it gets harder." Pt states that he discussed housing options with his family independence case manager, and would feel more comfortable with an personal care setting as opposed to supportive living. Pt continues to state that he does not feel he could safely return to living independently. When asked about SI or thoughts to harm himself, the patient states "no. I don't think I have to. My body is getting worse on its own." He denies acute safety concern on the unit. He denies other needs or concerns at this time. Physical Exam Psychiatric Orientation: alert, oriented x 3 and cooperative (only superficially) Apperance: appropriately dressed (wearing sweater and scrub pants), appropriately groomed and appeared stated age Eye Contact: + poor eye contact (avoids direct eye contract; predominantly staring at the floor) Motor Behavior: steady gait and station and no abnormal motor movements Speech: normal rate/rhythm/volume of speech (mild irritable tone, ) Affect: + depressed affect and + irritable affect (when discussing frequent perceived interruptions from staff today) Mood: + depressed mood ("It keeps getting harder" and "probably about the same") Thought Process: clear/coherent thought process, + perseveration and + concrete thought process Thought Content: + preoccupation (with perceived physical deterioration), + cognitive distortions, + hopelessness, + worthlessness and + self deprecation Suicidal Thoughts: denies suicidal thoughts (stating "I don't think I have to, my body is getting worse on its own") Hallucinations: no auditory hallucinations and no visual hallucinations Cognition: attention grossly intact and language grossly intact Insight: + impaired insight Judgement: + impaired judgement Vital Signs (Past 24 Hours) Last Vital Signs Temp 36.5 C 04/29/19 06:53 Pulse 79 04/29/19 06:53 Resp 18 04/29/19 06:53 BP 109/76 04/29/19 06:53 Pulse Ox 99 04/09/19 06:00 Results & Data Laboratory Results Laboratory Results - last 24 hr 04/29/19 08:21 PT 28.2 H INR 3.0 H Current Inpatient Medications Current Inpatient Medications: Current Inpatient Medications Acetaminophen (Tylenol) 650 mg PO Q4H PRN PRN Reason: Headache or Minor Fever Stop: 05/04/19 17:30 Last Admin: 04/24/19 12:46 Dose: 650 mg Documented by: Al Hydrox/Mg Hydrox/Simethicone (Maalox) 30 ml PO Q4H PRN PRN Reason: GI Upset Stop: 05/04/19 17:30 Aripiprazole (Abilify) 30 mg PO QAM COUNT INCLUDES THE [facility] Stop: 05/22/19 08:59 Last Admin: 04/29/19 08:23 Dose: 30 mg Documented by: Hydroxyzine HCl (Vistaril) 50 mg PO HSZ PRN PRN Reason: Insomnia Stop: 05/04/19 17:30 Hydroxyzine HCl (Vistaril) 25 mg PO Q4H PRN PRN Reason: Anxiety Stop: 05/04/19 17:30 Ibuprofen (Motrin) 600 mg PO Q8H PRN PRN Reason: Pain Stop: 05/21/19 10:12 Magnesium Hydroxide (Milk Of Magnesia) 30 ml PO DAILY PRN PRN Reason: Constipation Stop: 05/04/19 17:30 Olanzapine (Zyprexa) 10 mg IM DAILY PRN PRN Reason: REFUSE ABILIFY Stop: 05/14/19 11:44 Quetiapine Fumarate (Seroquel) 200 mg PO HS PRN PRN Reason: Sleep Stop: 05/14/19 11:39 Sertraline HCl (Zoloft) 200 mg PO QAM COUNT INCLUDES THE [facility] Stop: 05/05/19 08:59 Last Admin: 04/29/19 08:23 Dose: 200 mg Documented by: Simvastatin (Zocor) 40 mg PO HS SETH Stop: 05/04/19 21:59 Last Admin: 04/28/19 21:04 Dose: 40 mg Documented by: Sodium Chloride ([place] Nasal) 1 - 2 sprays NA PRN PRN PRN Reason: Nasal Dryness/Congestion Stop: 05/04/19 17:30 Trazodone HCl (Desyrel) 100 mg PO HS PRN PRN Reason: Sleep Stop: 05/04/19 17:33 Warfarin Sodium (Coumadin) 10 mg PO [id number]@1600 SETH Stop: 05/25/19 15:59 Last Admin: 04/27/19 16:03 Dose: 10 mg Documented by: Warfarin Sodium (Coumadin) 7.5 mg PO [id number]@1600 SETH Stop: 05/26/19 15:59 Last Admin: 04/28/19 15:46 Dose: 7.5 mg Documented by: Mental Health & Subst Abuse Tx Psychiatrist Name of Psychiatrist: [facility] - Dr. Harrington Psychiatrist's Time of Appointment with Psychiatrist: Dr Todd Psychiatric Appointment Comment: [address] [place] [address] [address], [place] [address] [facility]: [facility] Therapist's Therapy Appointment Comment: [address] [facility] Billet Bed Operator Name of Billet Bed Operator: [facility] - Av Perez Phone Number for Billet Bed Operator: [phone] Case Management Appointment Comment: [address] [facility], [address] Post Discharge Appointments Primary Care Physician Name Of Family Doctor: [facility] - Dr. Catalina Todd Primary Care Provider Appointment Comment: [address] [place] [address] [place] [address] Contact Information Discharge Discharge Address: [address] [place], [place] [id number] CPT Code CPT Code 15698 (1) DVT (deep venous thrombosis) DVT location: lower extremity (2) Cellulitis Site of cellulitis: unspecified site Qualified Code(s): L03.90 - Cellulitis, unspecified (3) Depression Active/Remission status: currently active Depression Type: major depressive disorder Major depression episode severity: severe Major depression recurrence: recurrent Psychotic features: with psychotic features Qualified Code(s): F33.3 - Major depressive disorder, recurrent, severe with psychotic symptoms (4) Hyperlipidemia Hyperlipidemia type: unspecified Qualified Code(s): E78.5 - Hyperlipidemia, unspecified
[2019-04-29] MEDS: WARFARIN SOD 10 MG TAB PO SCH (17:36)
[2019-04-29] MEDS: SIMVASTATIN 40 MG TAB PO SCH (21:00)
[2019-04-30 07:04] LABS: INR 3.1 (0.9-1.1); Prothrombin Time 29.3 Seconds (9.0-12.0)
[2019-04-30] MEDS: ARIPiprazole 10 MG TAB PO SCH (08:42)
[2019-04-30] MEDS: SERTRALINE HCL 100 MG TABLET PO SCH (08:42)
--- NOTE | 2019-04-30 08:53 | Psychiatric Progress Note ---
Date of Service April 30, 2019 Impression / Recommendations Surya Howard is a 59-year-old single male with a history of severe psychotic depression and generalized anxiety, as well as long-standing treatment nonadherence which has resulted in multiple involuntary outpatient commitments, who was just discharged from our unit 2 weeks prior to being hospitalized medically for DVT and lower extremity cellulitis in the context of medication nonadherence at home. The patient's has been treated with aripiprazole and sertraline for his psychotic depression. The dose of aripiprazole has been titrated to a dose of 30 mg a day, and the dose of sertraline has been titrated to a dose of 200 mg a day. Pt had a meeting with his registered nurse hh case manager and [facility] to discuss discharge possibilities. Pt continues to be isolative and refuses various prescribed medications. Discharge to an unsupervised setting would not be advised given his history of medication non-compliance and risk of harm with inability to reliably attend to ADLs at home. Inpatient psychiatric treatment remains medically necessary at this time. (1) Depression: 04/05 -continue sertraline 200 mg daily and quetiapine 50 mg at bedtime, which he is intermittently refusing. If he does not become more compliant with oral medications, we will pursue medications over objection, as his psychotic depression is unlikely to remit without medication, and he has responded well to these medications in the past. -Get records from outpatient psychiatrist, and coordinate care with his outpatient therapist and registered nurse hh case manager. -Brother, Amie, is his power of securities attorney we will enlist his assistance with medical decision making as the patient currently lacks capacity to refuse the recommended treatment. -Encourage patient to be out of bed during the day and participating in groups and therapy. Consider locking his door during group time if he is unable to do this on his own. -He was on an involuntary outpatient commitment, so we will file for a conversi on hearing to convert to 304 involuntary treatment. 04/06 -patient has refused sertraline the past 2 days, and although he took quetiapine the first night, he refused it last night. He is refusing all groups, has not bathed, and is refusing to eat and less staff bring food to his room. -We will place him in a medically necessary private room due to severity of mood and psychotic symptoms, and request staff to lock his door during group time him to be more engaged in treatment. -Staff contacted the patient's [id number], who clarified that the patient does not actually have a power of securities attorney, although this has been documented on admission here. She reported the family is frustrated and concerned with the patient's lack of ability to care for his mental and physical needs. The family has been exploring supportive living, specifically [facility]. -Patient's registered nurse hh case manager, Av Perez, will come in for a meeting tomorrow. 04/07 -improved medication compliance with staff support; continue sertraline 200 mg daily and increase quetiapine to 100 mg at bedtime. -gift manager, Av Perez, is coming to meet with patient today. 04/08 - Continue sertraline 200mg and increase quetiapine to 150mg HS. -On 304 commitment. Continue to encourage him to sign YAYA for [facility] 04/09 -pt refused quetiapine last night, having dose tonight be 1/2 of 300mg pill of quetiapine to help lower pill burden and might hold his lipid med tonight as well to help improve likelihood of pt taking his atypical antipsychotic dose that seems to be medication most needed at this time. goal is to titrate up quetiapine. Pharmacy has 50,100,200, and 300mg size pills, (in Xr form there are 150mg size, if switching to xr in future would advise dosing around 8pm. addressed pt delusional thinking and attempted reality testing. 04/10 took seroquel 150mg dose on 04/09 and noticing some improvement today pt might be improving some and might be more open to treatment ceased MNPR at this time 04/11 - Continue sertraline 200mg daily - will titration quetiapine to 200mg daily, can give previous dose of 150mg (1/2 of 300mg tablet) if refuses - Having a rather difficult day today, limited engagement in programming, continues to believe he is dying 04/12 - Continue as above. Pt refused quetiapine last evening, to receive titrated dose of 200mg tonight if compliant - Had a decent morning, though returned to fixation on dying by the afternoon 04/13 -Continue sertraline, has been taking the 200 mg dose for the past 7 days. -Continues to intermittently refuse quetiapine, only taking it on 50% of days in the past week, and received first dose of 200 mg at bedtime last night. He is unwilling to discuss other atypical antipsychotics and remains floridly d elusional without insight. He lacks capacity to refuse treatment recommendations for an antipsychotic, as 1 of his delusions is that he has diabetes and is going to at any moment, so believes any treatment is futile. Recommend medications over objection, with a trial of either aripiprazole or paliperidone to target psychotic symptoms, with an IM of olanzapine for refusal of oral medication. If he responds well and tolerates the oral antipsychotic, will then transition him to the long-acting injectable form. We will asked Dr. Delarosa to see him tomorrow for a second opinion. 04/14 - The patient continues to intermittently refuse quetiapine, only taking it on 50% of days in the past week. Today, he tells me that he will refuse quetiapine and all medications, stating, "What's the use? I'm dying." He is unwilling to discuss other antipsychotics and I agree with Dr. Vann's finding that he remains floridly delusional without insight. He lacks capacity to refuse treatment recommendations for an antipsychotic, as one of his delusions is that he has diabetes (he doesn't) and is going to "maybe right now." Within this context he tells me that treatment is futile and he will refuse to take what we are prescribing to him.. I endorse the recommendation for medications over objection. I have ordered aripiprazole 10 mg daily by mouth to treat the patient's psychosis, and I have ordered olanzapine 10 mg IM for refusal of p.o. aripiprazole. Without consistent application of antipsychotic medications at the appropriate dose, it can reasonably be expected that the patient will remain dangerous to himself to the degree that inpatient psychiatric hospitalization will remain medically necessary. 04/15 -Quetiapine was discontinued in favor of aripiprazole, with an order for olanzapine IM over objection if the patient declines aripiprazole. He did, in fact, voluntarily take aripiprazole 10 mg yesterday and this morning, and reports that he did not have any difficulty tolerating it, either yesterday, or this morning. -He has been refusing sertraline. An issue may be that he may not have realized that sertraline and Zoloft are the same medication. Today, he tells me that he has a past history of febrile response to Zoloft. I have explained to him that our finding is that he is suffering from a major depression that has caused him to lose touch with certain aspects of reality and, for that reason, we feel very strongly that he must take an antidepressant medication as part of recovery. The patient tells us that he will now agree to take sertraline (Zol oft) but this remains to be seen. 04/16 -So far he has been compliant with increased dose of Abilify. Appears he would likely benefit from long-acting injectable if he continues to tolerate well 04/17 -Appears more depressive today. -Remains delusionally preoccupied -Increase Abilify to 20 mg daily. Has been compliant 04/18 -Continue aripiprazole and sertraline, and discontinue lorazepam. Encourage patient to be out of bed and participating in treatment. 04/19 - Continue as above - Pt reporting improvement in headache after receiving a heating pad - will continue to monitor. Possible etiology includes current environment (dry air, bright lights, ect.), medication side effect, or other medical concern. Will continue to observe for now, consider hospitalist bentley given his ant icoagulation history to determine if NSAIDs could be appropriately considered in his case for intermittent and limited use 04/20 - Continue current medication regimen - Continue symptomatic treatment for headache, reporting Tylenol is effective although he is requiring routine dosing 04/21 - Titrating aripiprazole to 30mg qAM starting tomorrow; continue sertraline 200mg daily. Pt continues to be focused on number of pills being given to him, but this is difficult to rectify based on available pharmacy dosing of ordered medications - Tylenol remains helpful for headache symptoms, but symptoms return throughout the day - Discussed persistent reports of headache with hospitalist - felt to be ok to offer ibuprofen prn for headache symptoms despite anticoagulation status; continue to monitor - Anticipate meeting with [facility] representatives next week 04/22 -The patient does report improvement in his depression, although he also says that he feels that his depression is "so severe" that medications are unlikely to be more than a "drop in the bucket." -The patient's affect is noticeably brighter and more animated. Today, he laughed several times, appropriately, during our encounter. -The plan is to continue sertraline 200 mg daily in combination with aripiprazole 30 mg daily. -We are also emphasizing reality testing and illness teaching through individual and group therapies. The patient remains active and activity therapy and tells us that this is 1 of his favorite parts of hospitalization. 04/25 - Continue current medication regimen - Pt has been more isolative recently - Continue to encourage participation in group programming 04/26 - Continue current medication regimen - Feeling better physically today - Continue to encourage group participation - Meeting with Ashwin Parham and registered nurse hh case manager today 04/27 - Continue current medication regimen - Meeting with Ashwin Parham yesterday, who will call regarding acceptance - Continue to explore housing possibilities, as patient feels he will not be able to live independently 04/28 - 04/30 - Continue current medication regimen, condition seems to be improving mildly over the past 2-3 days - Awaiting decision for Ashwin Parham regarding acceptance to their personal half-way for discharge - will explore other options with patient as well - Continue to encourage group participation (2) Catatonia: 04/05 -continue Lorazepam 2 mg twice daily and taper over hospital stay. Continue to treat underlying medical conditions as below. 04/06 -decrease Lorazepam to 1 mg twice daily, as he is intermittently refusing doses and it has not been overly helpful. 04/13 -patient has been refusing the at bedtime dose of lorazepam, so will discontinue it. The morning dose can likely be discontinued prior to discharge. 04/14 -The patient is poorly responsive, but not catatonic at this point. 04/18 -discontinue lorazepam, as patient retreating to his bed and want to minimize sedating effects. (3) Generalized anxiety disorder: 04/05 -continue SSRI and lorazepam as above, offer hydroxyzine as needed for anxiety. Consider resuming buspirone if indicated. 04/14 -The patient's anxious distress at this point seems primarily attributable to his delusional believes that he is moribund. Our plan is to continue to aggress ively treat his psychosis and reassess anxious distress once the patient's psychotic features have resolved. 04/15 -The patient appears to be somewhat less anxious today, a circumstance that may be attributable to aripiprazole. Hopefully, the patient will also begin to take sertraline as prescribed. 04/22 -The patient appears to be less anxious today and tells us that he is feeling more relaxed and less upset. 04/25 - Continues to be preoccupied with perceived physical deterioration, continue current medication regimen (4) Cellulitis: 04/05 -complete course of Keflex, last dose 04/08/2019. Infection is resolving. 04/22 -Infection appears to have resolved. (5) DVT (deep venous thrombosis): 04/05 -continue Coumadin 5 mg daily, daily PT/INR, and Lovenox until INR is therapeutic. Coordinate care with Dr. Loyola, who sees him at the anticoagulation clinic. 04/07 -INR is 1.2 today, continue Coumadin and Lovenox. Coordinate with Dr. Loyola 04/11 - Reviewed consultation recommendations - discussed recs with Dr. Loyola via phone - Orders provided for patient to receive 15mg of warfarin today, then a schedule of 10mg daily SuTuThSa, and 5mg daily MWF - Recommended that enoxaparin continue until his INR is therapeutic for two days (two day overlap) - Dr. Loyola to continue to follow 04/14 -Anticoagulation therapy continues. PT and PTT values are as expected. -The patient reports no pain or tenderness in his lower extremities. 04/15 -Consulted telephonically yesterday, telephonically, with hematology. They are following, and agree that the patient's current lab values are in the target range. Several medication adjustments are being planned, and the patient remains asymptomatic. 04/16 -PT INR 26.7 and 2.8 respectively today 04/17 -INR 2.9 today 04/22 -The patient's INR levels have been steadily rising and this morning's value was 3.5. The addition of sertraline to the patient's medication regimen may be impacting upon his coagulation values. The patient remains asymptomatic, in terms of evidence of a pulmonary embolism. We will hold his daily warfarin level today, repeat the warfarin coagulation studies in the morning, and will plan to resume warfarin (at the half dose) on Thursday with a full dose on Thursday, as indicated by his lab values. 04/24 --clarification of lab frequency with coag clinic tomorrow 04/25, scheduled for 5 mg Coumadin this pm per Dr. Loyola. 04/25 - Restart coumadin regimen prior to its holding on 04/22 - Restart daily lab draws - PT INR is 18.2 and 1.9 respectively today - Appreciate ongoing input from anticoagulation clinic regarding recommendations 04/27 - Coumadin schedule changed per Dr. Loyola, who is following - Call placed to discuss possibility of alternative anticoagulation medications 04/28 - After consulting anticoagulation clinic to discuss alternative medication considerations, option of Eliquis 5mg BID was discussed but cost was reportedly an issue in the past - Medication was called to patient's pharmacy, who reported patient's co-pay for a one-month supply would be $345, which is not a financially feasible option for the patient at this time (6) Hyperlipidemia: 04/05 -continue home statin. 04/09 and 04/10 aiming for pt to take med but comfortable with pt refusing this med at current time if helps him obtain his other medications, aim is for improved meed compliance occur as psychiatrically improves, lexy since currently pt pill load a factor in pt compliance Inventory Assets Strengths: Educated, supportive family Needs: Compliance with treatment, increase community supports Risk Factors Assessment Male: Yes : Yes Do You Have Access To A Gun?: No Health Problems: Yes Mental Health Diagnoses: Yes Substance Use Disorders: No Previous Attempt: Yes Family History of Suicide: No Previous Psychiatric Hospitalization: Yes Hopelessness: Yes Smoker: No Protective Factors Assessment Shinto Beliefs: No : No Responsible for Young Children: No Employed: No Stable Relationships: Yes Supportive Family: Yes Good Rapport with Provider: No Interval History Identifying Information YINKA ROMERO is a 59-year-old M who currently lives alone in an [place], has a history of depression with psychosis, generalized anxiety disorder, treatment nonadherence and was on an involuntary outpatient commitment, and was admitted on 04/04/19 16:39 on a 302 involuntary commitment for depression with psychosis, treatment nonadherence, and inability to care for himself. He is on a 304 commitment as of 04/08/19. Chief Complaint "Not bad I guess." Review of Systems Notes Constitutional: reports "weakness", perceived to be from blood draws Cardiovascular: denied Respiratory: denied Gastrointestinal: denied Neurological: denied Psychiatric: denies symptoms other than stated above Total of at least 10 systems reviewed, pertinent positives as above and in HPI. Sleep Information Total Hours of Sleep: 6.5 Sleep Comments: pt on q-15 minute checks Meal Information Percent Meal Consumed - Breakfast: 100 Percent Meal Consumed - Lunch: 100 Percent Meal Consumed - Dinner: 100 Nutrition Comment: documented from meal record worksheet Subjective Subjective Patient was seen & assessed and interval progress reviewed with nursing and social work. Staff report the patient has continued to demonstrate mild improvements. After meeting with his registered nurse hh case manager yesterday, the patient has admitted to feeling more comfortable with a personal half-way option at discharge. Pt was seen today to assess progress since discharge. Pt states he is "not bad I guess" today. He reports noticing "a little bit of improvement" today compared to yesterday. He continues to be preoccupied with physical concerns, stating "my body doesn't wanna click anymore." He reports, "my physical stuff has really gotten me down the past couple of years." He reports he would have rated his mood a 0/10 prior to coming to the hospital - he now rates his mood a 4-5/10. Ideally, patient would like to see his mood as an 8- 9/10. Pt continues to deny suicidality, but hopelessness remains present. He denies other needs or concerns today. Physical Exam Psychiatric Orientation: alert, oriented x 3 and cooperative (superficially) Apperance: appropriately dressed (casually, in sweater and scrub pants), appropriately groomed and appeared stated age Eye Contact: + fair eye contact Motor Behavior: steady gait and station (cautious, but stable ambulation) and no abnormal motor movements Speech: normal rate/rhythm/volume of speech (frustrated/irritable tone at times, mildly more pleasant today) Affect: + depressed affect and + irritable affect Mood: + depressed mood Thought Process: clear/coherent thought process, + perseveration and + concrete thought process Thought Content: + preoccupation (with perceived physical aliments), + cognitive distortions, + hopelessness, + worthlessness and + self deprecation Suicidal Thoughts: denies suicidal thoughts Homicidal Thoughts: denies homicidal thoughts Hallucinations: no auditory hallucinations and no visual hallucinations Cognition: attention grossly intact and language grossly intact Insight: + impaired insight Judgement: + impaired judgement Vital Signs (Past 24 Hours) Last Vital Signs Temp 36.7 C 04/30/19 06:56 Pulse 67 04/30/19 06:57 Resp 18 04/30/19 06:56 BP 121/78 04/30/19 06:57 Pulse Ox 99 04/09/19 06:00 Results & Data Laboratory Results Laboratory Results - last 24 hr 04/30/19 06:00 PT 29.3 H INR 3.1 H Current Inpatient Medications Current Inpatient Medications: Current Inpatient Medications Acetaminophen (Tylenol) 650 mg PO Q4H PRN PRN Reason: Headache or Minor Fever Stop: 05/04/19 17:30 Last Admin: 04/24/19 12:46 Dose: 650 mg Documented by: Al Hydrox/Mg Hydrox/Simethicone (Maalox) 30 ml PO Q4H PRN PRN Reason: GI Upset Stop: 05/04/19 17:30 Aripiprazole (Abilify) 30 mg PO QAM [facility] Stop: 05/22/19 08:59 Last Admin: 04/30/19 08:42 Dose: 30 mg Documented by: Hydroxyzine HCl (Vistaril) 50 mg PO HSZ PRN PRN Reason: Insomnia Stop: 05/04/19 17:30 Hydroxyzine HCl (Vistaril) 25 mg PO Q4H PRN PRN Reason: Anxiety Stop: 05/04/19 17:30 Ibuprofen (Motrin) 600 mg PO Q8H PRN PRN Reason: Pain Stop: 05/21/19 10:12 Magnesium Hydroxide (Milk Of Magnesia) 30 ml PO DAILY PRN PRN Reason: Constipation Stop: 05/04/19 17:30 Olanzapine (Zyprexa) 10 mg IM DAILY PRN PRN Reason: REFUSE ABILIFY Stop: 05/14/19 11:44 Quetiapine Fumarate (Seroquel) 200 mg PO HS PRN PRN Reason: Sleep Stop: 05/14/19 11:39 Sertraline HCl (Zoloft) 200 mg PO QAM [facility] Stop: 05/05/19 08:59 Last Admin: 04/30/19 08:42 Dose: 200 mg Documented by: Simvastatin (Zocor) 40 mg PO HS SETH Stop: 05/04/19 21:59 Last Admin: 04/29/19 21:00 Dose: 40 mg Documented by: Sodium Chloride ([place] Nasal) 1 - 2 sprays NA PRN PRN PRN Reason: Nasal Dryness/Congestion Stop: 05/04/19 17:30 Trazodone HCl (Desyrel) 100 mg PO HS PRN PRN Reason: Sleep Stop: 05/04/19 17:33 Warfarin Sodium (Coumadin) 10 mg PO SuMoWeFr@1600 [facility] Stop: 05/25/19 15:59 Last Admin: 04/29/19 17:36 Dose: 10 mg Documented by: Warfarin Sodium (Coumadin) 7.5 mg PO TuThSa@1600 [facility] Stop: 05/26/19 15:59 Last Admin: 04/28/19 15:46 Dose: 7.5 mg Documented by: Mental Health & Subst Abuse Tx Psychiatrist Name of Psychiatrist: [facility] - Dr. Harrington Psychiatrist's Time of Appointment with Psychiatrist: Dr Todd Psychiatric Appointment Comment: [address] [place] [address] [address], [place] [address] Therapist Name of Therapist: [facility] - Juan Menendez [facility] Therapist's Therapy Appointment Comment: [address] [facility], [place] Ems Director Name of Ems Director: [facility] - Av Perez Phone Number for Ems Director: [phone] Case Management Appointment Comment: [address] [facility], [address], [place] Post Discharge Appointments Primary Care Physician Name Of Family Doctor: [facility] - Dr. Catalina Todd Primary Care Provider Appointment Comment: [address] [place], [place] [address], [place] [address] Contact Information Discharge Discharge [address]: [address] [place] [address] CPT Code CPT Code 83662 (1) DVT (deep venous thrombosis) DVT location: lower extremity (2) Cellulitis Site of cellulitis: unspecified site Qualified Code(s): L03.90 - Cellulitis, unspecified (3) Depression Active/Remission status: currently active Depression Type: major depressive disorder Major depression episode severity: severe Major depression recurrence: recurrent Psychotic features: with psychotic features Qualified Code(s): F33.3 - Major depressive disorder, recurrent, severe with psychotic symptoms (4) Hyperlipidemia Hyperlipidemia type: unspecified Qualified Code(s): E78.5 - Hyperlipidemia, unspecified
[2019-04-30] MEDS: WARFARIN SOD 7.5 MG TAB PO SCH (15:28)
[2019-04-30] MEDS: SIMVASTATIN 40 MG TAB PO SCH (21:04)
[2019-05-01 08:14] LABS: INR 4.1 (0.9-1.1); Prothrombin Time 37.7 Seconds (9.0-12.0)
[2019-05-01] MEDS: SERTRALINE HCL 100 MG TABLET PO SCH (08:38)
[2019-05-01] MEDS: ARIPiprazole 10 MG TAB PO SCH (08:38)
--- NOTE | 2019-05-01 08:50 | Psychiatric Progress Note ---
Date of Service May 01, 2019 Impression / Recommendations Surya Howard is a 59-year-old single male with a history of severe psychotic depression and generalized anxiety, as well as long-standing treatment nonadherence which has resulted in multiple involuntary outpatient commitments, who was just discharged from our unit 2 weeks prior to being hospitalized medically for DVT and lower extremity cellulitis in the context of medication nonadherence at home. The patient's has been treated with aripiprazole and sertraline for his psychotic depression. The dose of aripiprazole has been titrated to a dose of 30 mg a day, and the dose of sertraline has been titrated to a dose of 200 mg a day. Pt had a meeting with his spring encaser and [facility] to discuss discharge possibilities. Pt continues to be isolative and refuses various prescribed medications. Discharge to an unsupervised setting would not be advised given his history of medication non-compliance and risk of harm with inability to reliably attend to ADLs at home. Inpatient psychiatric treatment remains medically necessary at this time. (1) Depression: 04/05 -continue sertraline 200 mg daily and quetiapine 50 mg at bedtime, which he is intermittently refusing. If he does not become more compliant with oral medications, we will pursue medications over objection, as his psychotic depression is unlikely to remit without medication, and he has responded well to these medications in the past. -Get records from outpatient psychiatrist, and coordinate care with his outpatient therapist and spring encaser. -Brother, Amie, is his power of automotive parts advisor we will enlist his assistance with medical decision making as the patient currently lacks capacity to refuse the recommended treatment. -Encourage patient to be out of bed during the day and participating in groups and therapy. Consider locking his door during group time if he is unable to do this on his own. -He was on an involuntary outpatient commitment, so we will file for a conversi on hearing to convert to 304 involuntary treatment. 04/06 -patient has refused sertraline the past 2 days, and although he took quetiapine the first night, he refused it last night. He is refusing all groups, has not bathed, and is refusing to eat and less staff bring food to his room. -We will place him in a medically necessary private room due to severity of mood and psychotic symptoms, and request staff to lock his door during group time him to be more engaged in treatment. -Staff contacted the patient's [id number], who clarified that the patient does not actually have a power of automotive parts advisor, although this has been documented on admission here. She reported the family is frustrated and concerned with the patient's lack of ability to care for his mental and physical needs. The family has been exploring supportive living, specifically [facility]. -Patient's spring encaser, Av Perez, will come in for a meeting tomorrow. 04/07 -improved medication compliance with staff support; continue sertraline 200 mg daily and increase quetiapine to 100 mg at bedtime. -catering and events manager, Av Perez, is coming to meet with patient today. 04/08 - Continue sertraline 200mg and increase quetiapine to 150mg HS. -On 304 commitment. Continue to encourage him to sign YAY[facility] for [facility] 04/09 -pt refused quetiapine last night, having dose tonight be 1/2 of 300mg pill of quetiapine to help lower pill burden and might hold his lipid med tonight as well to help improve likelihood of pt taking his atypical antipsychotic dose that seems to be medication most needed at this time. goal is to titrate up quetiapine. Pharmacy has 50,100,200, and 300mg size pills, (in Xr form there are 150mg size, if switching to xr in future would advise dosing around 8pm. addressed pt delusional thinking and attempted reality testing. 04/10 took seroquel 150mg dose on 04/09 and noticing some improvement today pt might be improving some and might be more open to treatment ceased MNPR at this time 04/11 - Continue sertraline 200mg daily - will titration quetiapine to 200mg daily, can give previous dose of 150mg (1/2 of 300mg tablet) if refuses - Having a rather difficult day today, limited engagement in programming, continues to believe he is dying 04/12 - Continue as above. Pt refused quetiapine last evening, to receive titrated dose of 200mg tonight if compliant - Had a decent morning, though returned to fixation on dying by the afternoon 04/13 -Continue sertraline, has been taking the 200 mg dose for the past 7 days. -Continues to intermittently refuse quetiapine, only taking it on 50% of days in the past week, and received first dose of 200 mg at bedtime last night. He is unwilling to discuss other atypical antipsychotics and remains floridly d elusional without insight. He lacks capacity to refuse treatment recommendations for an antipsychotic, as 1 of his delusions is that he has diabetes and is going to at any moment, so believes any treatment is futile. Recommend medications over objection, with a trial of either aripiprazole or paliperidone to target psychotic symptoms, with an IM of olanzapine for refusal of oral medication. If he responds well and tolerates the oral antipsychotic, will then transition him to the long-acting injectable form. We will asked Dr. Delarosa to see him tomorrow for a second opinion. 04/14 - The patient continues to intermittently refuse quetiapine, only taking it on 50% of days in the past week. Today, he tells me that he will refuse quetiapine and all medications, stating, "What's the use? I'm dying." He is unwilling to discuss other antipsychotics and I agree with Dr. Vann's finding that he remains floridly delusional without insight. He lacks capacity to refuse treatment recommendations for an antipsychotic, as one of his delusions is that he has diabetes (he doesn't) and is going to "maybe right now." Within this context he tells me that treatment is futile and he will refuse to take what we are prescribing to him.. I endorse the recommendation for medications over objection. I have ordered aripiprazole 10 mg daily by mouth to treat the patient's psychosis, and I have ordered olanzapine 10 mg IM for refusal of p.o. aripiprazole. Without consistent application of antipsychotic medications at the appropriate dose, it can reasonably be expected that the patient will remain dangerous to himself to the degree that inpatient psychiatric hospitalization will remain medically necessary. 04/15 -Quetiapine was discontinued in favor of aripiprazole, with an order for olanzapine IM over objection if the patient declines aripiprazole. He did, in fact, voluntarily take aripiprazole 10 mg yesterday and this morning, and reports that he did not have any difficulty tolerating it, either yesterday, or this morning. -He has been refusing sertraline. An issue may be that he may not have realized that sertraline and Zoloft are the same medication. Today, he tells me that he has a past history of febrile response to Zoloft. I have explained to him that our finding is that he is suffering from a major depression that has caused him to lose touch with certain aspects of reality and, for that reason, we feel very strongly that he must take an antidepressant medication as part of recovery. The patient tells us that he will now agree to take sertraline (Zol oft) but this remains to be seen. 04/16 -So far he has been compliant with increased dose of Abilify. Appears he would likely benefit from long-acting injectable if he continues to tolerate well 04/17 -Appears more depressive today. -Remains delusionally preoccupied -Increase Abilify to 20 mg daily. Has been compliant 04/18 -Continue aripiprazole and sertraline, and discontinue lorazepam. Encourage patient to be out of bed and participating in treatment. 04/19 - Continue as above - Pt reporting improvement in headache after receiving a heating pad - will continue to monitor. Possible etiology includes current environment (dry air, bright lights, ect.), medication side effect, or other medical concern. Will continue to observe for now, consider hospitalist bentley given his ant icoagulation history to determine if NSAIDs could be appropriately considered in his case for intermittent and limited use 04/20 - Continue current medication regimen - Continue symptomatic treatment for headache, reporting Tylenol is effective although he is requiring routine dosing 04/21 - Titrating aripiprazole to 30mg qAM starting tomorrow; continue sertraline 200mg daily. Pt continues to be focused on number of pills being given to him, but this is difficult to rectify based on available pharmacy dosing of ordered medications - Tylenol remains helpful for headache symptoms, but symptoms return throughout the day - Discussed persistent reports of headache with hospitalist - felt to be ok to offer ibuprofen prn for headache symptoms despite anticoagulation status; continue to monitor - Anticipate meeting with [facility] representatives next week 04/22 -The patient does report improvement in his depression, although he also says that he feels that his depression is "so severe" that medications are unlikely to be more than a "drop in the bucket." -The patient's affect is noticeably brighter and more animated. Today, he laughed several times, appropriately, during our encounter. -The plan is to continue sertraline 200 mg daily in combination with aripiprazole 30 mg daily. -We are also emphasizing reality testing and illness teaching through individual and group therapies. The patient remains active and activity therapy and tells us that this is 1 of his favorite parts of hospitalization. 04/25 - Continue current medication regimen - Pt has been more isolative recently - Continue to encourage participation in group programming 04/26 - Continue current medication regimen - Feeling better physically today - Continue to encourage group participation - Meeting with Ashwin Parham and spring encaser today 04/27 - Continue current medication regimen - Meeting with Ashwin Parham yesterday, who will call regarding acceptance - Continue to explore housing possibilities, as patient feels he will not be able to live independently 04/28 - 05/01 - Continue current medication regimen, condition seems to be improving mildly over the past 2-3 days - Awaiting decision for Ashwin Parham regarding acceptance to their personal alf for discharge - will explore other options with patient as well - Continue to encourage group participation (2) Catatonia: 04/05 -continue Lorazepam 2 mg twice daily and taper over hospital stay. Continue to treat underlying medical conditions as below. 04/06 -decrease Lorazepam to 1 mg twice daily, as he is intermittently refusing doses and it has not been overly helpful. 04/13 -patient has been refusing the at bedtime dose of lorazepam, so will discontinue it. The morning dose can likely be discontinued prior to discharge. 04/14 -The patient is poorly responsive, but not catatonic at this point. 04/18 -discontinue lorazepam, as patient retreating to his bed and want to minimize sedating effects. (3) Generalized anxiety disorder: 04/05 -continue SSRI and lorazepam as above, offer hydroxyzine as needed for anxiety. Consider resuming buspirone if indicated. 04/14 -The patient's anxious distress at this point seems primarily attributable to his delusional believes that he is moribund. Our plan is to continue to aggress ively treat his psychosis and reassess anxious distress once the patient's psychotic features have resolved. 04/15 -The patient appears to be somewhat less anxious today, a circumstance that may be attributable to aripiprazole. Hopefully, the patient will also begin to take sertraline as prescribed. 04/22 -The patient appears to be less anxious today and tells us that he is feeling more relaxed and less upset. 04/25 - Continues to be preoccupied with perceived physical deterioration, continue current medication regimen (4) Cellulitis: 04/05 -complete course of Keflex, last dose 04/08/2019. Infection is resolving. 04/22 -Infection appears to have resolved. (5) DVT (deep venous thrombosis): 04/05 -continue Coumadin 5 mg daily, daily PT/INR, and Lovenox until INR is therapeutic. Coordinate care with Dr. Loyola, who sees him at the anticoagulation clinic. 04/07 -INR is 1.2 today, continue Coumadin and Lovenox. Coordinate with Dr. Loyola 04/11 - Reviewed consultation recommendations - discussed recs with Dr. Loyola via phone - Orders provided for patient to receive 15mg of warfarin today, then a schedule of 10mg daily SuTuThSa, and 5mg daily MWF - Recommended that enoxaparin continue until his INR is therapeutic for two days (two day overlap) - Dr. Loyola to continue to follow 04/14 -Anticoagulation therapy continues. PT and PTT values are as expected. -The patient reports no pain or tenderness in his lower extremities. 04/15 -Consulted telephonically yesterday, telephonically, with hematology. They are following, and agree that the patient's current lab values are in the target range. Several medication adjustments are being planned, and the patient remains asymptomatic. 04/16 -PT INR 26.7 and 2.8 respectively today 04/17 -INR 2.9 today 04/22 -The patient's INR levels have been steadily rising and this morning's value was 3.5. The addition of sertraline to the patient's medication regimen may be impacting upon his coagulation values. The patient remains asymptomatic, in terms of evidence of a pulmonary embolism. We will hold his daily warfarin level today, repeat the warfarin coagulation studies in the morning, and will plan to resume warfarin (at the half dose) on Thursday with a full dose on Thursday, as indicated by his lab values. 04/24 --clarification of lab frequency with coag clinic tomorrow 04/25, scheduled for 5 mg Coumadin this pm per Dr. Loyola. 04/25 - Restart coumadin regimen prior to its holding on 04/22 - Restart daily lab draws - PT INR is 18.2 and 1.9 respectively today - Appreciate ongoing input from anticoagulation clinic regarding recommendations 04/27 - Coumadin schedule changed per Dr. Loyola, who is following - Call placed to discuss possibility of alternative anticoagulation medications 04/28 - After consulting anticoagulation clinic to discuss alternative medication considerations, option of Eliquis 5mg BID was discussed but cost was reportedly an issue in the past - Medication was called to patient's pharmacy, who reported patient's co-pay for a one-month supply would be $345, which is not a financially feasible option for the patient at this time 05/01 - Coumadin dosing held today per protocol, as PT was 4.1 this morning (6) Hyperlipidemia: 04/05 -continue home statin. 04/09 and 04/10 aiming for pt to take med but comfortable with pt refusing this med at current time if helps him obtain his other medications, aim is for improved meed compliance occur as psychiatrically improves, lexy since currently pt pill load a factor in pt compliance Inventory Assets Strengths: Educated, supportive family Needs: Compliance with treatment, increase community supports Risk Factors Assessment Male: Yes : Yes Do You Have Access To A Gun?: No Health Problems: Yes Mental Health Diagnoses: Yes Substance Use Disorders: No Previous Attempt: Yes Family History of Suicide: No Previous Psychiatric Hospitalization: Yes Hopelessness: Yes Smoker: No Protective Factors Assessment Confucianist Beliefs: No : No Responsible for Young Children: No Employed: No Stable Relationships: Yes Supportive Family: Yes Good Rapport with Provider: No Interval History Identifying Information YINKA ROMERO is a 59-year-old M who currently lives alone in an [place], has a history of depression with psychosis, generalized anxiety disorder, treatment nonadherence and was on an involuntary outpatient commitment, and was admitted on 04/04/19 16:39 on a 302 involuntary commitment for depression with psychosis, treatment nonadherence, and inability to care for himself. He is on a 304 comm itment as of 04/08/19. Chief Complaint "About the same, ok I guess." Review of Systems Notes Constitutional: continues to verbalize vague physical concerns Cardiovascular: denied Respiratory: denied Gastrointestinal: denied Neurological: denied Psychiatric: denies symptoms other than stated above Total of at least 10 systems reviewed, pertinent positives as above and in HPI. Sleep Information Total Hours of Sleep: 9 Sleep Comments: pt appeared to sleep 2 hrs during evening shift. pt on q-15 minute checks Meal Information Percent Meal Consumed - Breakfast: 100 Percent Meal Consumed - Lunch: 100 Percent Meal Consumed - Dinner: 100 Nutrition Comment: documented from meal record worksheet Subjective Subjective Patient was seen & assessed and interval progress reviewed with nursing and social work. Staff report the patient continues to be willing for personal alf housing. He rated his mood a 5/10 and "fine", maintaining improvements at this time. Pt was seen today to assess progress since admission. Pt states he is "ok, I guess today" and reports he feels about "the same." Pt denies any specific concerns today, and denies any clear physical complaints. He states "I guess I've just not been exercising as much." When asked about his mood, the patient states "I'd say it's been ok." He denies any suicidal ideation at this time. Pt denies other needs or concerns presently. Physical Exam Psychiatric Orientation: alert, oriented x 3 and cooperative (superficially) Apperance: appropriately dressed, appropriately groomed and appeared stated age Eye Contact: good eye contact Motor Behavior: steady gait and station and no abnormal motor movements Speech: normal rate/rhythm/volume of speech (nonspontaneous) Affect: + depressed affect and + anxious affect Mood: + depressed mood (reports improvement - "I'd say it's ok") Thought Process: goal directed thought process and + concrete thought process Thought Content: + preoccupation, + cognitive distortions and + hopelessness Suicidal Thoughts: denies suicidal thoughts Homicidal Thoughts: denies homicidal thoughts Hallucinations: no auditory hallucinations and no visual hallucinations Cognition: attention grossly intact and language grossly intact Insight: + limited insight Judgement: + limited judgement Vital Signs (Past 24 Hours) Last Vital Signs Temp 36.7 C 05/01/19 07:05 Pulse 76 05/01/19 07:05 Resp 18 05/01/19 07:05 BP 115/75 05/01/19 07:05 Pulse Ox 99 04/09/19 06:00 Results & Data Laboratory Results Laboratory Results - last 24 hr 05/01/19 07:47 PT 37.7 H INR 4.1 H Current Inpatient Medications Current Inpatient Medications: Current Inpatient Medications Acetaminophen (Tylenol) 650 mg PO Q4H PRN PRN Reason: Headache or Minor Fever Stop: 05/04/19 17:30 Last Admin: 04/24/19 12:46 Dose: 650 mg Documented by: Al Hydrox/Mg Hydrox/Simethicone (Maalox) 30 ml PO Q4H PRN PRN Reason: GI Upset Stop: 05/04/19 17:30 Aripiprazole (Abilify) 30 mg PO QAM [facility] Stop: 05/22/19 08:59 Last Admin: 05/01/19 08:38 Dose: 30 mg Documented by: Hydroxyzine HCl (Vistaril) 50 mg PO HSZ PRN PRN Reason: Insomnia Stop: 05/04/19 17:30 Hydroxyzine HCl (Vistaril) 25 mg PO Q4H PRN PRN Reason: Anxiety Stop: 05/04/19 17:30 Ibuprofen (Motrin) 600 mg PO Q8H PRN PRN Reason: Pain Stop: 05/21/19 10:12 Magnesium Hydroxide (Milk Of Magnesia) 30 ml PO DAILY PRN PRN Reason: Constipation Stop: 05/04/19 17:30 Olanzapine (Zyprexa) 10 mg IM DAILY PRN PRN Reason: REFUSE ABILIFY Stop: 05/14/19 11:44 Quetiapine Fumarate (Seroquel) 200 mg PO HS PRN PRN Reason: Sleep Stop: 05/14/19 11:39 Sertraline HCl (Zoloft) [facility] Stop: 05/05/19 08:59 Last Admin: 05/01/19 08:38 Dose: 200 mg Documented by: Simvastatin (Zocor) 40 mg PO HS SETH Stop: 05/04/19 21:59 Last Admin: 04/30/19 21:04 Dose: 40 mg Documented by: Sodium Chloride ([place] Nasal) 1 - 2 sprays NA PRN PRN PRN Reason: Nasal Dryness/Congestion Stop: 05/04/19 17:30 Trazodone HCl (Desyrel) 100 mg PO HS PRN PRN Reason: Sleep Stop: 05/04/19 17:33 Warfarin Sodium (Coumadin) 10 mg PO [id number]@1600 SETH Stop: 05/25/19 15:59 Last Admin: 04/29/19 17:36 Dose: 10 mg Documented by: Warfarin Sodium (Coumadin) 7.5 mg PO TuThSa@1600 SETH Stop: 05/26/19 15:59 Last Admin: 04/30/19 15:28 Dose: 7.5 mg Documented by: Mental Health & Subst Abuse Tx Psychiatrist Name of Psychiatrist: [facility] - Dr. Harrington Psychiatrist's Time of Appointment with Psychiatrist: Dr Todd Psychiatric Appointment Comment: [address], [place] [address] Therap[facility] - Juan Menendez ACSW Therapist's Therapy Appointment Comment: [address], [place] Community Engagement Specialist Name of Community Engagement Specialist: [employer] - Av Perez Phone Number for Community Engagement Specialist: [phone] Case Management Appointment Comment: [address], [address], [place] Post Discharge Appointments Primary Care Physician Name Of Family Doctor: [facility] - Dr. Catalina Todd Primary Care Provider Appointment Comment: [address] [place] [address] [place] [address] Contact Information Discharge Discharge Address: [address] [place] [address] CPT Code CPT Code 54334 (1) DVT (deep venous thrombosis) DVT location: lower extremity (2) Cellulitis Site of cellulitis: unspecified site Qualified Code(s): L03.90 - Cellulitis, unspecified (3) Depression Active/Remission status: currently active Depression Type: major depressive disorder Major depression episode severity: severe Major depression recurrence: recurrent Psychotic features: with psychotic features Qualified Code(s): F33.3 - Major depressive disorder, recurrent, severe with psychotic symptoms (4) Hyperlipidemia Hyperlipidemia type: unspecified Qualified Code(s): E78.5 - Hyperlipidemia, unspecified
[2019-05-01] MEDS: SIMVASTATIN 40 MG TAB PO SCH (21:44)
[2019-05-02 07:38] LABS: Prothrombin Time 28.7 Seconds (9.0-12.0)
[2019-05-02] MEDS: ARIPiprazole 10 MG TAB PO SCH (08:03)
[2019-05-02] MEDS: SERTRALINE HCL 100 MG TABLET PO SCH ×2 (08:04→09:08)
[2019-05-02] MEDS ORDERED: ACETAMINOPHEN 325 MG TAB PO PRN (08:33)
[2019-05-02] MEDS ORDERED: ALUMINUM/MAGNESIUM SUSP 30 ML UDC PO PRN (08:33)
[2019-05-02] MEDS ORDERED: OLANZapine 10 MG/2.1 ML SDV IM PRN (08:35)
[2019-05-02] MEDS ORDERED: QUETIAPINE FUMARATE 200 MG TAB PO PRN (08:35)
[2019-05-02] MEDS ORDERED: SODIUM CHLORIDE 0.65% NA SOLN 45 ML (OCEAN) PRN (08:35)
[2019-05-02] MEDS ORDERED: TRAZODONE HCL 100 MG TAB PO PRN (08:35)
[2019-05-02] MEDS ORDERED: MAGNESIUM HYDROXIDE SUSP 30 ML UDC PO PRN (08:35)
--- NOTE | 2019-05-02 09:35 | Psychiatric Progress Note ---
Date of Service May 02, 2019 Impression / Recommendations Surya Howard is a 59-year-old single male with a history of severe psychotic depression and generalized anxiety, as well as long-standing treatment nonadherence which has resulted in multiple involuntary outpatient commitments, who was just discharged from our unit 2 weeks prior to being hospitalized medically for DVT and lower extremity cellulitis in the context of medication nonadherence at home. The patient's has been treated with aripiprazole and sertraline for his psychotic depression. The dose of aripiprazole has been titrated to a dose of 30 mg a day, and the dose of sertraline has been titrated to a dose of 200 mg a day. Pt had a meeting with his manager of case management and [facility] to discuss discharge possibilities - he has been accepted to [facility], and they are asking to know his willingness in the next day or so. Pt continues to be isolative and refuses various prescribed medications. Discharge to an unsupervised setting would not be advised given his history of medication non- compliance and risk of harm with inability to reliably attend to ADLs at home. Inpatient psychiatric treatment remains medically necessary at this time. (1) Depression: 04/05 -continue sertraline 200 mg daily and quetiapine 50 mg at bedtime, which he is intermittently refusing. If he does not become more compliant with oral medications, we will pursue medications over objection, as his psychotic depression is unlikely to remit without medication, and he has responded well to these medications in the past. -Get records from outpatient psychiatrist, and coordinate care with his outpatient therapist and manager of case management. -Brother, Amie, is his power of tax attorney we will enlist his assistance with medical decision making as the patient currently lacks capacity to refuse the recommended treatment. -Encourage patient to be out of bed during the day and participating in groups and therapy. Consider locking his door during group time if he is unable to do this on his own. -He was on an involuntary outpatient commitment, so we will file for a conversion hearing to convert to 304 involuntary treatment. 04/06 -patient has refused sertraline the past 2 days, and although he took quetiapine the first night, he refused it last night. He is refusing all groups, has not bathed, and is refusing to eat and less staff bring food to his room. -We will place him in a medically necessary private room due to severity of mood and psychotic symptoms, and request staff to lock his door during group time him to be more engaged in treatment. -Staff contacted the patient's [id number], who clarified that the patient does not actually have a power of tax attorney, although this has been documented on admission here. She reported the family is frustrated and concerned with the patient's lack of ability to care for his mental and physical needs. The family has been exploring supportive living, specifically [facility]. -Patient's manager of case management, Av Perez, will come in for a meeting tomorrow. 04/07 -improved medication compliance with staff support; continue sertraline 200 mg daily and increase quetiapine to 100 mg at bedtime. -air export logistics manager, Av Perez, is coming to meet with patient today. 04/08 - Continue sertraline 200mg and increase quetiapine to 150mg HS. -On 304 commitment. Continue to encourage him to sign YAYA for [facility] 04/09 -pt refused quetiapine last night, having dose tonight be 1/2 of 300mg pill of quetiapine to help lower pill burden and might hold his lipid med tonight as well to help improve likelihood of pt taking his atypical antipsychotic dose that seems to be medication most needed at this time. goal is to titrate up quetiapine. Pharmacy has 50,100,200, and 300mg size pills, (in Xr form there are 150mg size, if switching to xr in future would advise dosing around 8pm. addressed pt delusional thinking and attempted reality testing. 04/10 took seroquel 150mg dose on 04/09 and noticing some improvement today pt might be improving some and might be more open to treatment ceased MNPR at this time 04/11 - Continue sertraline 200mg daily - will titration quetiapine to 200mg daily, can give previous dose of 150mg (1/2 of 300mg tablet) if refuses - Having a rather difficult day today, limited engagement in programming, continues to believe he is dying 04/12 - Continue as above. Pt refused quetiapine last evening, to receive titrated dose of 200mg tonight if compliant - Had a decent morning, though returned to fixation on dying by the afternoon 04/13 -Continue sertraline, has been taking the 200 mg dose for the past 7 days. -Continues to intermittently refuse quetiapine, only taking it on 50% of days in the past week, and received first dose of 200 mg at bedtime last night. He is unwilling to discuss other atypical antipsychotics and remains floridly delusional without insight. He lacks capacity to refuse treatment recommendations for an antipsychotic, as 1 of his delusions is that he has diabetes and is going to at any moment, so believes any treatment is futile. Recommend medications over objection, with a trial of either aripiprazole or paliperidone to target psychotic symptoms, with an IM of olanzapine for refusal of oral medication. If he responds well and tolerates the oral antipsychotic, will then transition him to the long-acting injectable form. We will asked Dr. Delarosa to see him tomorrow for a second opinion. 04/14 - The patient continues to intermittently refuse quetiapine, only taking it on 50% of days in the past week. Today, he tells me that he will refuse quetiapine and all medications, stating, "What's the use? I'm dying." He is unwilling to discuss other antipsychotics and I agree with Dr. Vann's finding that he remains floridly delusional without insight. He lacks capacity to refuse treatment recommendations for an antipsychotic, as one of his delusions is that he has diabetes (he doesn't) and is going to "maybe right now." Within this context he tells me that treatment is futile and he will refuse to take what we are prescribing to him.. I endorse the recommendation for medications over objection. I have ordered aripiprazole 10 mg daily by mouth to treat the patient's psychosis, and I have ordered olanzapine 10 mg IM for refusal of p.o. aripiprazole. Without consistent application of antipsychotic medications at the appropriate dose, it can reasonably be expected that the patient will remain dangerous to himself to the degree that inpatient psychiatric hospitalization will remain medically necessary. 04/15 -Quetiapine was discontinued in favor of aripiprazole, with an order for olanzapine IM over objection if the patient declines aripiprazole. He did, in fact, voluntarily take aripiprazole 10 mg yesterday and this morning, and reports that he did not have any difficulty tolerating it, either yesterday, or this morning. -He has been refusing sertraline. An issue may be that he may not have realized that sertraline and Zoloft are the same medication. Today, he tells me that he has a past history of febrile response to Zoloft. I have explained to him that our finding is that he is suffering from a major depression that has caused him to lose touch with certain aspects of reality and, for that reason, we feel very strongly that he must take an antidepressant medication as part of recovery. The patient tells us that he will now agree to take sertraline (Zoloft) but this remains to be seen. 04/16 -So far he has been compliant with increased dose of Abilify. Appears he would likely benefit from long-acting injectable if he continues to tolerate well 04/17 -Appears more depressive today. -Remains delusionally preoccupied -Increase Abilify to 20 mg daily. Has been compliant 04/18 -Continue aripiprazole and sertraline, and discontinue lorazepam. Encourage patient to be out of bed and participating in treatment. 04/19 - Continue as above - Pt reporting improvement in headache after receiving a heating pad - will continue to monitor. Possible etiology includes current environment (dry air, bright lights, ect.), medication side effect, or other medical concern. Will continue to observe for now, consider hospitalist bentley given his anticoagulation history to determine if NSAIDs could be appropriately considered in his case for intermittent and limited use 04/20 - Continue current medication regimen - Continue symptomatic treatment for headache, reporting Tylenol is effective although he is requiring routine dosing 04/21 - Titrating aripiprazole to 30mg qAM starting tomorrow; continue sertraline 200mg daily. Pt continues to be focused on number of pills being given to him, but this is difficult to rectify based on available pharmacy dosing of ordered medications - Tylenol remains helpful for headache symptoms, but symptoms return throughout the day - Discussed persistent reports of headache with hospitalist - felt to be ok to offer ibuprofen prn for headache symptoms despite anticoagulation status; continue to monitor - Anticipate meeting with [facility] representatives next week 04/22 -The patient does report improvement in his depression, although he also says that he feels that his depression is "so severe" that medications are unlikely to be more than a "drop in the bucket." -The patient's affect is noticeably brighter and more animated. Today, he laughed several times, appropriately, during our encounter. -The plan is to continue sertraline 200 mg daily in combination with aripiprazole 30 mg daily. -We are also emphasizing reality testing and illness teaching through individual and group therapies. The patient remains active and activity therapy and tells us that this is 1 of his favorite parts of hospitalization. 04/25 - Continue current medication regimen - Pt has been more isolative recently - Continue to encourage participation in group programming 04/26 - Continue current medication regimen - Feeling better physically today - Continue to encourage group participation - Meeting with [facility] and manager of case management today 04/27 - Continue current medication regimen - Meeting with [facility] yesterday, who will call regarding acceptance - Continue to explore housing possibilities, as patient feels he will not be able to live independently 04/28 - 05/01 - Continue current medication regimen, condition seems to be improving mildly over the past 2-3 days - Awaiting decision for [facility] regarding acceptance to their personal assisted for discharge - will explore other options with patient as well - Continue to encourage group participation 05/02 - Continue current medication regimen - Pt has been accepted to [facility], awaiting patient's decision to be discharged there - Continue to encourage group participation (2) Catatonia: 04/05 -continue Lorazepam 2 mg twice daily and taper over hospital stay. Continue to treat underlying medical conditions as below. 04/06 -decrease Lorazepam to 1 mg twice daily, as he is intermittently refusing doses and it has not been overly helpful. 04/13 -patient has been refusing the at bedtime dose of lorazepam, so will discontinue it. The morning dose can likely be discontinued prior to discharge. 04/14 -The patient is poorly responsive, but not catatonic at this point. 04/18 -discontinue lorazepam, as patient retreating to his bed and want to minimize sedating effects. (3) Generalized anxiety disorder: 04/05 -continue SSRI and lorazepam as above, offer hydroxyzine as needed for anxiety. Consider resuming buspirone if indicated. 04/14 -The patient's anxious distress at this point seems primarily attributable to his delusional believes that he is moribund. Our plan is to continue to aggressively treat his psychosis and reassess anxious distress once the patient's psychotic features have resolved. 04/15 -The patient appears to be somewhat less anxious today, a circumstance that may be attributable to aripiprazole. Hopefully, the patient will also begin to take sertraline as prescribed. 04/22 -The patient appears to be less anxious today and tells us that he is feeling more relaxed and less upset. 04/25 - Continues to be preoccupied with perceived physical deterioration, continue current medication regimen 05/02 - Increased anxiety today after being accepted to [facility], patient admits to concern regarding finances (4) Cellulitis: 04/05 -complete course of Keflex, last dose 04/08/2019. Infection is resolving. 04/22 -Infection appears to have resolved. (5) DVT (deep venous thrombosis): 04/05 -continue Coumadin 5 mg daily, daily PT/INR, and Lovenox until INR is therapeutic. Coordinate care with Dr. Loyola, who sees him at the anticoagulation clinic. 04/07 -INR is 1.2 today, continue Coumadin and Lovenox. Coordinate with Dr. Loyola 04/11 - Reviewed consultation recommendations - discussed recs with Dr. Loyola via phone - Orders provided for patient to receive 15mg of warfarin today, then a schedule of 10mg daily SuTuThSa, and 5mg daily MWF - Recommended that enoxaparin continue until his INR is therapeutic for two days (two day overlap) - Dr. Loyola to continue to follow 04/14 -Anticoagulation therapy continues. PT and PTT values are as expected. -The patient reports no pain or tenderness in his lower extremities. 04/15 -Consulted telephonically yesterday, telephonically, with hematology. They are following, and agree that the patient's current lab values are in the target range. Several medication adjustments are being planned, and the patient remains asymptomatic. 04/16 -PT INR 26.7 and 2.8 respectively today 04/17 -INR 2.9 today 04/22 -The patient's INR levels have been steadily rising and this morning's value was 3.5. The addition of sertraline to the patient's medication regimen may be impacting upon his coagulation values. The patient remains asymptomatic, in terms of evidence of a pulmonary embolism. We will hold his daily warfarin lev el today, repeat the warfarin coagulation studies in the morning, and will plan to resume warfarin (at the half dose) on Thursday with a full dose on Thursday, as indicated by his lab values. 04/24 --clarification of lab frequency with coag clinic tomorrow 04/25, scheduled for 5 mg Coumadin this pm per Dr. Loyola. 04/25 - Restart coumadin regimen prior to its holding on 04/22 - Restart daily lab draws - PT INR is 18.2 and 1.9 respectively today - Appreciate ongoing input from anticoagulation clinic regarding recommendations 04/27 - Coumadin schedule changed per Dr. Loyola, who is following - Call placed to discuss possibility of alternative anticoagulation medications 04/28 - After consulting anticoagulation clinic to discuss alternative medication considerations, option of Eliquis 5mg BID was discussed but cost was reportedly an issue in the past - Medication was called to patient's pharmacy, who reported patient's co-pay for a one-month supply would be $345, which is not a financially feasible option for the patient at this time 05/01 - Coumadin dosing held today per protocol, as PT was 4.1 this morning (6) Hyperlipidemia: 04/05 -continue home statin. 04/09 and 04/10 aiming for pt to take med but comfortable with pt refusing this med at current time if helps him obtain his other medications, aim is for improved meed compliance occur as psychiatrically improves, lexy since currently pt pill load a factor in pt compliance Inventory Assets Strengths: Educated, supportive family Needs: Compliance with treatment, increase community supports Risk Factors Assessment Male: Yes : Yes Do You Have Access To A Gun?: No Health Problems: Yes Mental Health Diagnoses: Yes Substance Use Disorders: No Previous Attempt: Yes Family History of Suicide: No Previous Psychiatric Hospitalization: Yes Hopelessness: Yes Smoker: No Protective Factors Assessment Christianity Beliefs: No : No Responsible for Young Children: No Employed: No Stable Relationships: Yes Supportive Family: Yes Good Rapport with Provider: No Interval History Identifying Information YINKA ROMERO is a 59-year-old M who currently lives alone in an [place], has a history of depression with psychosis, generalized anxiety disorder, treatment nonadherence and was on an involuntary outpatient commitment, and was admitted on 04/04/19 16:39 on a 302 involuntary commitment for depression with psychosis, treatment nonadherence, and inability to care for himself. He is on a 304 commitment as of 04/08/19. Chief Complaint "Oh, I'm alright." Review of Systems Notes Constitutional: denied Cardiovascular: denied Respiratory: denied Gastrointestinal: denied Neurological: denied Psychiatric: denies symptoms other than stated above Total of at least 10 systems reviewed, pertinent positives as above and in HPI. Sleep Information Total Hours of Sleep: 8 Sleep Comments: pt on q-15 minute checks Meal Information Percent Meal Consumed - Breakfast: 100 Percent Meal Consumed - Lunch: 100 Percent Meal Consumed - Dinner: 100 Nutrition Comment: documented from meal record worksheet Subjective Subjective Patient was seen & assessed and interval progress reviewed with treatment team. Staff report the patient has continued to maintain improvements in condition. Expecting to hear back soon about calls to [facility] to discuss personal assisted availability after discharge. Staff reports the patient has been staying consistent with receiving medications and reported improvements in condition. We are waiting to hear about the possibility of patient being discharged to a personal assisted. Patient was seen today to assess progress since admission. Patient states that he is "alright" today, stating "I feel pretty good actually." The patient shares with this provider that overall he feels as though his condition is improving, stating that his mood is "a little bit better today." Patient rates his mood a 5/10 so far today. Patient denies overt suicidality, but stated it "depends on the day" as far as his hopelessness. Patient denies any safety concerns on the unit, and remains agreeable to considering personal assisted at discharge. He denies other needs or concerns at this time. Physical Exam Psychiatric Orientation: alert, oriented x 3 and cooperative (more so than typically observed) Apperance: appropriately dressed (for setting; though clothes have been worn for several days), appropriately groomed and appeared stated age Eye Contact: + fair eye contact Motor Behavior: steady gait and station and no abnormal motor movements Speech: normal rate/rhythm/volume of speech (tone is less irritable today) Affect: + depressed affect, + anxious affect and mood congruent with affect Mood: + depressed mood ("a little bit better") Thought Process: goal directed thought process, clear/coherent thought process and + concrete thought process Thought Content: reality based without delusions and + hopelessness (occasional, but improving overall) Suicidal Thoughts: denies suicidal thoughts Homicidal Thoughts: denies homicidal thoughts Hallucinations: no auditory hallucinations and no visual hallucinations Cognition: attention grossly intact and language grossly intact Insight: + limited insight Judgement: + limited judgement Vital Signs (Past 24 Hours) Last Vital Signs Temp 36.3 C L 05/02/19 06:56 Pulse 66 05/02/19 06:56 Resp 18 05/02/19 06:56 BP 125/84 05/02/19 06:56 Pulse Ox 99 04/09/19 06:00 Results & Data Laboratory Results Laboratory Results - last 24 hr 05/02/19 06:57 PT 28.7 H INR 3.0 H Current Inpatient Medications Current Inpatient Medications: Current Inpatient Medications Acetaminophen (Tylenol) 650 mg PO Q4H PRN PRN Reason: Headache or Minor Fever Stop: 06/01/19 08:29 Al Hydrox/Mg Hydrox/Simethicone (Maalox) 30 ml PO Q4H PRN PRN Reason: GI Upset Stop: 06/01/19 08:29 Aripiprazole (Abilify) 30 mg PO QAM SETH Stop: 05/22/19 08:59 Last Admin: 05/02/19 08:03 Dose: 30 mg Documented by: Hydroxyzine HCl (Vistaril) 25 mg PO Q4H PRN PRN Reason: Anxiety Stop: 06/01/19 08:34 Hydroxyzine HCl (Vistaril) 50 mg PO HSZ PRN PRN Reason: Insomnia Stop: 06/01/19 08:29 Ibuprofen (Motrin) 600 mg PO Q8H PRN PRN Reason: Pain Stop: 05/21/19 10:12 Magnesium Hydroxide (Milk Of Magnesia) 30 ml PO DAILY PRN PRN Reason: Constipation Stop: 06/01/19 08:34 Olanzapine (Zyprexa) 10 mg IM DAILY PRN PRN Reason: REFUSE ABILIFY Stop: 06/01/19 08:34 Quetiapine Fumarate (Seroquel) 200 mg PO HS PRN PRN Reason: Sleep Stop: 06/01/19 08:34 Sertraline HCl (Zoloft) 200 mg PO QAM SETH Stop: 06/01/19 08:59 Last Admin: 05/02/19 09:08 Dose: Not Given Documented by: Simvastatin (Zocor) 40 mg PO HS SETH Stop: 06/01/19 21:59 Sodium Chloride (Ware Nasal) 1 - 2 sprays NA PRN PRN PRN Reason: Nasal Dryness/Congestion Stop: 06/01/19 08:34 Trazodone HCl (Desyrel) 100 mg PO HS PRN PRN Reason: Sleep Stop: 06/01/19 08:34 Warfarin Sodium (Coumadin) 10 mg PO [id number]@1600 SETH Stop: 05/25/19 15:59 Last Admin: 04/29/19 17:36 Dose: 10 mg Documented by: Warfarin Sodium (Coumadin) 7.5 mg PO [id number]@1600 SETH Stop: 05/26/19 15:59 Last Admin: 04/30/19 15:28 Dose: 7.5 mg Documented by: Mental Health & Subst Abuse Tx Psychiatrist Name of Psychiatrist: [facility] - Dr. Harrington Psychiatrist's Time of Appointment with Psychiatrist: Dr Todd Psychiatric Appointment Comment: [address], [place] [address] Therapist Name of Therapist: [facility] - Juan Menendez [facility] Therapist's Therapy Appointment Comment: [address] [facility] [place] Instrument Maker And Repairer Name of Instrument Maker And Repairer: [employer] - Av Perez Phone Number for Instrument Maker And Repairer: [phone] Case Management Appointment Comment: [address], [address], [place] Post Discharge Appointments Primary Care Physician Name Of Family Doctor: [facility] - Dr. Catalina Todd Primary Care Provider Appointment Comment: [address] [place] [id number] Contact Information Discharge Discharge Address: [address] [place] [address] CPT Code CPT Code 48151 (1) DVT (deep venous thrombosis) DVT location: lower extremity (2) Cellulitis Site of cellulitis: unspecified site Qualified Code(s): L03.90 - Cellulitis, unspecified (3) Depression Active/Remission status: currently active Depression Type: major depressive d isorder Major depression episode severity: severe Major depression recurrence: recurrent Psychotic features: with psychotic features Qualified Code(s): F33.3 - Major depressive disorder, recurrent, severe with psychotic symptoms (4) Hyperlipidemia Hyperlipidemia type: unspecified Qualified Code(s): E78.5 - Hyperlipidemia, unspecified
[2019-05-02] MEDS: WARFARIN SOD 10 MG TAB PO SCH (16:02)
[2019-05-02] MEDS: SIMVASTATIN 40 MG TAB PO SCH (21:16)
[2019-05-03 07:31] LABS: INR 2.5 (0.9-1.1)
[2019-05-03] MEDS: ARIPiprazole 10 MG TAB PO SCH (08:55)
[2019-05-03] MEDS: SERTRALINE HCL 100 MG TABLET PO SCH (08:56)
--- NOTE | 2019-05-03 13:13 | Psychiatric Progress Note ---
Date of Service May 03, 2019 Impression / Recommendations Surya Howard is a 59-year-old single male with a history of severe psychotic depression and generalized anxiety, as well as long-standing treatment nonadherence which has resulted in multiple involuntary outpatient commitments, who was just discharged from our unit 2 weeks prior to being hospitalized medically for DVT and lower extremity cellulitis in the context of medication nonadherence at home. The patient's has been treated with aripiprazole and sertraline for his psychotic depression. The dose of aripiprazole has been titrated to a dose of 30 mg a day, and the dose of sertraline has been titrated to a dose of 200 mg a day. Pt had a meeting with his registered nurse hh case manager and [facility] to discuss discharge possibilities - he has been accepted to [facility], and they are asking to know his willingness in the next day or so. Pt has been more interactive on the unit, and his condition appears to be improving. Discharge to an unsupervised setting would not be advised given his history of medication non-compliance and risk of harm with inability to reliably attend to ADLs at home. Inpatient psychiatric treatment remains medically necessary at this time. (1) Depression: 04/05 -continue sertraline 200 mg daily and quetiapine 50 mg at bedtime, which he is intermittently refusing. If he does not become more compliant with oral medications, we will pursue medications over objection, as his psychotic depression is unlikely to remit without medication, and he has responded well to these medications in the past. -Get records from outpatient psychiatrist, and coordinate care with his outpatient therapist and registered nurse hh case manager. -Brother, Amie, is his power of criminal defense attorney we will enlist his assistance with medical decision making as the patient currently lacks capacity to refuse the recommended treatment. -Encourage patient to be out of bed during the day and participating in groups and therapy. Consider locking his door during group time if he is unable to do this on his own. -He was on an involuntary outpatient commitment, so we will file for a conversion hearing to convert to 304 involuntary treatment. 04/06 -patient has refused sertraline the past 2 days, and although he took quetiapine the first night, he refused it last night. He is refusing all groups, has not bathed, and is refusing to eat and less staff bring food to his room. -We will place him in a medically necessary private room due to severity of mood and psychotic symptoms, and request staff to lock his door during group time him to be more engaged in treatment. -Staff contacted the patient's [id number], who clarified that the patient does not actually have a power of criminal defense attorney, although this has been documented on admission here. She reported the family is frustrated and concerned with the patient's lack of ability to care for his mental and physical needs. The family has been exploring supportive living, specifically [facility]. -Patient's registered nurse hh case manager, Av Perez, will come in for a meeting tomorrow. 04/07 -improved medication compliance with staff support; continue sertraline 200 mg daily and increase quetiapine to 100 mg at bedtime. -mis manager, Av Perez, is coming to meet with patient today. 04/08 - Continue sertraline 200mg and increase quetiapine to 150mg HS. -On 304 commitment. Continue to encourage him to sign YAYA for [facility] 04/09 -pt refused quetiapine last night, having dose tonight be 1/2 of 300mg pill of quetiapine to help lower pill burden and might hold his lipid med tonight as well to help improve likelihood of pt taking his atypical antipsychotic dose that seems to be medication most needed at this time. goal is to titrate up quetiapine. Pharmacy has 50,100,200, and 300mg size pills, (in Xr form there are 150mg size, if switching to xr in future would advise dosing around 8pm. addressed pt delusional thinking and attempted reality testing. 04/10 took seroquel 150mg dose on 04/09 and noticing some improvement today pt might be improving some and might be more open to treatment ceased MNPR at this time 04/11 - Continue sertraline 200mg daily - will titration quetiapine to 200mg daily, can give previous dose of 150mg (1/2 of 300mg tablet) if refuses - Having a rather difficult day today, limited engagement in programming, continues to believe he is dying 04/12 - Continue as above. Pt refused quetiapine last evening, to receive titrated dose of 200mg tonight if compliant - Had a decent morning, though returned to fixation on dying by the afternoon 04/13 -Continue sertraline, has been taking the 200 mg dose for the past 7 days. -Continues to intermittently refuse quetiapine, only taking it on 50% of days in the past week, and received first dose of 200 mg at bedtime last night. He is unwilling to discuss other atypical antipsychotics and remains floridly delusional without insight. He lacks capacity to refuse treatment recommendations for an antipsychotic, as 1 of his delusions is that he has diabetes and is going to at any moment, so believes any treatment is futile. Recommend medications over objection, with a trial of either aripiprazole or paliperidone to target psychotic symptoms, with an IM of olanzapine for refusal of oral medication. If he responds well and tolerates the oral antipsychotic, will then transition him to the long-acting injectable form. We will asked Dr. Delarosa to see him tomorrow for a second opinion. 04/14 - The patient continues to intermittently refuse quetiapine, only taking it on 50% of days in the past week. Today, he tells me that he will refuse quetiapine and all medications, stating, "What's the use? I'm dying." He is unwilling to discuss other antipsychotics and I agree with Dr. Vann's finding that he remains floridly delusional without insight. He lacks capacity to refuse treatment recommendations for an antipsychotic, as one of his delusions is that he has diabetes (he doesn't) and is going to "maybe right now." Within this context he tells me that treatment is futile and he will refuse to take what we are prescribing to him.. I endorse the recommendation for medications over objection. I have ordered aripiprazole 10 mg daily by mouth to treat the patient's psychosis, and I have ordered olanzapine 10 mg IM for refusal of p.o. aripiprazole. Without consistent application of antipsychotic medications at the appropriate dose, it can reasonably be expected that the patient will remain dangerous to himself to the degree that inpatient psychiatric hospitalization will remain medically necessary. 04/15 -Quetiapine was discontinued in favor of aripiprazole, with an order for olanzapine IM over objection if the patient declines aripiprazole. He did, in fact, voluntarily take aripiprazole 10 mg yesterday and this morning, and reports that he did not have any difficulty tolerating it, either yesterday, or this morning. -He has been refusing sertraline. An issue may be that he may not have realized that sertraline and Zoloft are the same medication. Today, he tells me that he has a past history of febrile response to Zoloft. I have explained to him that our finding is that he is suffering from a major depression that has caused him to lose touch with certain aspects of reality and, for that reason, we feel very strongly that he must take an antidepressant medication as part of recovery. The patient tells us that he will now agree to take sertraline (Zoloft) but this remains to be seen. 04/16 -So far he has been compliant with increased dose of Abilify. Appears he would likely benefit from long-acting injectable if he continues to tolerate well 04/17 -Appears more depressive today. -Remains delusionally preoccupied -Increase Abilify to 20 mg daily. Has been compliant 04/18 -Continue aripiprazole and sertraline, and discontinue lorazepam. Encourage patient to be out of bed and participating in treatment. 04/19 - Continue as above - Pt reporting improvement in headache after receiving a heating pad - will continue to monitor. Possible etiology includes current environment (dry air, bright lights, ect.), medication side effect, or other medical concern. Will continue to observe for now, consider hospitalist bentley given his anticoagulation history to determine if NSAIDs could be appropriately considered in his case for intermittent and limited use 04/20 - Continue current medication regimen - Continue symptomatic treatment for headache, reporting Tylenol is effective although he is requiring routine dosing 04/21 - Titrating aripiprazole to 30mg qAM starting tomorrow; continue sertraline 200mg daily. Pt continues to be focused on number of pills being given to him, but this is difficult to rectify based on available pharmacy dosing of ordered medications - Tylenol remains helpful for headache symptoms, but symptoms return throughout the day - Discussed persistent reports of headache with hospitalist - felt to be ok to offer ibuprofen prn for headache symptoms despite anticoagulation status; continue to monitor - Anticipate meeting with [facility] representatives next week 04/22 -The patient does report improvement in his depression, although he also says that he feels that his depression is "so severe" that medications are unlikely to be more than a "drop in the bucket." -The patient's affect is noticeably brighter and more animated. Today, he laughed several times, appropriately, during our encounter. -The plan is to continue sertraline 200 mg daily in combination with ar ipiprazole 30 mg daily. -We are also emphasizing reality testing and illness teaching through individual and group therapies. The patient remains active and activity therapy and tells us that this is 1 of his favorite parts of hospitalization. 04/25 - Continue current medication regimen - Pt has been more isolative recently - Continue to encourage participation in group programming 04/26 - Continue current medication regimen - Feeling better physically today - Continue to encourage group participation - Meeting with Ashwin Parham and registered nurse hh case manager today 04/27 - Continue current medication regimen - Meeting with Ashwin Parham yesterday, who will call regarding acceptance - Continue to explore housing possibilities, as patient feels he will not be able to live independently 04/28 - 05/01 - Continue current medication regimen, condition seems to be improving mildly over the past 2-3 days - Awaiting decision for [facility] regarding acceptance to their personal intermediate for discharge - will explore other options with patient as well - Continue to encourage group participation 05/02 - 05/03 - Continue current medication regimen - Pt has been accepted to [facility], awaiting patient's decision to be discharged there - Continue to encourage group participation (2) Catatonia: 04/05 -continue Lorazepam 2 mg twice daily and taper over hospital stay. Continue to treat underlying medical conditions as below. 04/06 -decrease Lorazepam to 1 mg twice daily, as he is intermittently refusing doses and it has not been overly helpful. 04/13 -patient has been refusing the at bedtime dose of lorazepam, so will discontinue it. The morning dose can likely be discontinued prior to discharge. 04/14 -The patient is poorly responsive, but not catatonic at this point. 04/18 -discontinue lorazepam, as patient retreating to his bed and want to minimize sedating effects. (3) Generalized anxiety disorder: 04/05 -continue SSRI and lorazepam as above, offer hydroxyzine as needed for anxiety. Consider resuming buspirone if indicated. 04/14 -The patient's anxious distress at this point seems primarily attributable to his delusional believes that he is moribund. Our plan is to continue to aggressively treat his psychosis and reassess anxious distress once the patient's psychotic features have resolved. 04/15 -The patient appears to be somewhat less anxious today, a circumstance that may be attributable to aripiprazole. Hopefully, the patient will also begin to take sertraline as prescribed. 04/22 -The patient appears to be less anxious today and tells us that he is feeling more relaxed and less upset. 04/25 - Continues to be preoccupied with perceived physical deterioration, continue current medication regimen 05/02 - Increased anxiety today after being accepted to [facility], patient admits to concern regarding finances (4) Cellulitis: 04/05 -complete course of Keflex, last dose 04/08/2019. Infection is resolving. 04/22 -Infection appears to have resolved. (5) DVT (deep venous thrombosis): 04/05 -continue Coumadin 5 mg daily, daily PT/INR, and Lovenox until INR is therapeutic. Coordinate care with Dr. Loyola, who sees him at the anticoagulation clinic. 04/07 -INR is 1.2 today, continue Coumadin and Lovenox. Coordinate with Dr. Loyola 04/11 - Reviewed consultation recommendations - discussed recs with Dr. Loyola via phone - Orders provided for patient to receive 15mg of warfarin today, then a schedule of 10mg daily SuTuThSa, and 5mg daily MWF - Recommended that enoxaparin continue until his INR is therapeutic for two days (two day overlap) - Dr. Loyola to continue to follow 04/14 -Anticoagulation therapy continues. PT and PTT values are as expected. -The patient reports no pain or tenderness in his lower extremities. 04/15 -Consulted telephonically yesterday, telephonically, with hematology. They are following, and agree that the patient's current lab values are in the target range. Several medication adjustments are being planned, and the patient remains asymptomatic. 04/16 -PT INR 26.7 and 2.8 respectively today 04/17 -INR 2.9 today 04/22 -The patient's INR levels have been steadily rising and this morning's value was 3.5. The addition of sertraline to the patient's medication regimen may be impacting upon his coagulation values. The patient remains asymptomatic, in terms of evidence of a pulmonary embolism. We will hold his daily warfarin level today, repeat the warfarin coagulation studies in the morning, and will plan to resume warfarin (at the half dose) on Thursday with a full dose on Thursday, as indicated by his lab values. 04/24 --clarification of lab frequency with coag clinic tomorrow 04/25, scheduled for 5 mg Coumadin this pm per Dr. Loyola. 04/25 - Restart coumadin regimen prior to its holding on 04/22 - Restart daily lab draws - PT INR is 18.2 and 1.9 respectively today - Appreciate ongoing input from anticoagulation clinic regarding recommendations 04/27 - Coumadin schedule changed per Dr. Loyola, who is following - Call placed to discuss possibility of alternative anticoagulation medications 04/28 - After consulting anticoagulation clinic to discuss alternative medication considerations, option of Eliquis 5mg BID was discussed but cost was reportedly an issue in the past - Medication was called to patient's pharmacy, who reported patient's co-pay for a one-month supply would be $345, which is not a financially feasible option for the patient at this time 05/01 - Coumadin dosing held today per protocol, as PT was 4.1 this morning (6) Hyperlipidemia: 04/05 -continue home statin. 04/09 and 04/10 aiming for pt to take med but comfortable with pt refusing this med at current time if helps him obtain his other medications, aim is for imp roved meed compliance occur as psychiatrically improves, lexy since currently pt pill load a factor in pt compliance Inventory Assets Strengths: Educated, supportive family Needs: Compliance with treatment, increase community supports Risk Factors Assessment Male: Yes : Yes Do You Have Access To A Gun?: No Health Problems: Yes Mental Health Diagnoses: Yes Substance Use Disorders: No Previous Attempt: Yes Family History of Suicide: No Previous Psychiatric Hospitalization: Yes Hopelessness: Yes Smoker: No Protective Factors Assessment Lutheran Beliefs: No : No Responsible for Young Children: No Employed: No Stable Relationships: Yes Supportive Family: Yes Good Rapport with Provider: No Interval History Identifying Information YINKA ROMERO is a 59-year-old M who currently lives alone in an [place], has a history of depression with psychosis, generalized anxiety disorder, treatment nonadherence and was on an involuntary outpatient commitment, and was admitted on 04/04/19 16:39 on a 302 involuntary commitment for depression with psychosis, treatment nonadherence, and inability to care for himself. He is on a 304 commitment as of 04/08/19. Chief Complaint "Oh, ok. I'm alright." Review of Systems Notes Constitutional: denied Cardiovascular: denied Respiratory: denied Gastrointestinal: denied Neurological: denied Psychiatric: denies symptoms other than stated above Total of at least 10 systems reviewed, pertinent positives as above and in HPI. Sleep Information Total Hours of Sleep: 8.5 Sleep Comments: pt on q-15 minute checks Meal Information Percent Meal Consumed - Breakfast: 100 Percent Meal Consumed - Lunch: 100 Percent Meal Consumed - Dinner: 100 Nutrition Comment: documented from meal record worksheet Subjective Subjective Patient was seen & assessed and interval progress reviewed with nursing and social work. Staff report the [facility], but patient has been reporting concern about finances. Pt continues to be compliant with his medication regimen. Pt was seen today to assess progress since admission. Pt states he is "alright" today. He continues to rate his mood a 5/10 when discussing with this provider. He agrees with the idea that his mood has been "holding steady." We discussed his concerns related to financial consideration [facility]. This provider discussed this topic with the patient for some time, discussing that this level of care can be utilized for only as long as the patient feels is necessary. We reviewed lower levels of care (supportive housing, home health nursing, etc) that would be a step-down option after he regains his strength. Pt reported understanding this information, but is still interested in looking into the decision further. He denied any specific support that would be beneficial in making this decision. Pt denies SI and other needs or concerns today. Physical Exam Psychiatric Orientation: alert, oriented x 3 and cooperative Apperance: appropriately dressed, appropriately groomed and appeared stated age Eye Contact: good eye contact Motor Behavior: steady gait and station and no abnormal motor movements Speech: normal rate/rhythm/volume of speech (less irritable tone) Affect: + depressed affect (improving gradually, appearing mildly when engaged in conversation) and + anxious affect Mood: + depressed mood ("Eh, still about a 5" and "holding steady") and + anxious mood (especially as it relates to his housing decision) Thought Process: goal directed thought process, clear/coherent thought process and thought association intact Thought Content: + cognitive distortions, + hopelessness (improving gradually) and + self deprecation Suicidal Thoughts: denies suicidal thoughts and denies suicidal intent Homicidal Thoughts: denies homicidal thoughts Hallucinations: no auditory hallucinations and no visual hallucinations Cognition: attention grossly intact and language grossly intact Insight: + limited insight Judgement: + fair judgement Vital Signs (Past 24 Hours) Last Vital Signs Temp 36.6 C 05/03/19 06:54 Pulse 71 05/03/19 06:54 Resp 18 05/03/19 06:54 BP 121/83 05/03/19 06:54 Pulse Ox 99 04/09/19 06:00 Results & Data Laboratory Results Laboratory Results - last 24 hr 05/03/19 06:59 PT 24.0 H INR 2.5 H Current Inpatient Medications Current Inpatient Medications: Current Inpatient Medications Acetaminophen (Tylenol) 650 mg PO Q4H PRN PRN Reason: Headache or Minor Fever Stop: 06/01/19 08:29 Al Hydrox/Mg Hydrox/Simethicone (Maalox) 30 ml PO Q4H PRN PRN Reason: GI Upset Stop: 06/01/19 08:29 Aripiprazole (Abilify) 30 mg PO QAM SETH Stop: 05/22/19 08:59 Last Admin: 05/03/19 08:55 Dose: 30 mg Documented by: Hydroxyzine HCl (Vistaril) 25 mg PO Q4H PRN PRN Reason: Anxiety Stop: 06/01/19 08:34 Hydroxyzine HCl (Vistaril) 50 mg PO HSZ PRN PRN Reason: Insomnia Stop: 06/01/19 08:29 Ibuprofen (Motrin) 600 mg PO Q8H PRN PRN Reason: Pain Stop: 05/21/19 10:12 Magnesium Hydroxide (Milk Of Magnesia) 30 ml PO DAILY PRN PRN Reason: Constipation Stop: 06/01/19 08:34 Olanzapine (Zyprexa) 10 mg IM DAILY PRN PRN Reason: REFUSE ABILIFY Stop: 06/01/19 08:34 Quetiapine Fumarate (Seroquel) 200 mg PO HS PRN PRN Reason: Sleep Stop: 06/01/19 08:34 Sertraline HCl (Zoloft) 200 mg PO QAM SETH Stop: 06/01/19 08:59 Last Admin: 05/03/19 08:56 Dose: 200 mg Documented by: Simvastatin (Zocor) 40 mg PO HS SETH Stop: 06/01/19 21:59 Last Admin: 05/02/19 21:16 Dose: 40 mg Documented by: Sodium Chloride ([place] Nasal) 1 - 2 sprays NA PRN PRN PRN Reason: Nasal Dryness/Congestion Stop: 06/01/19 08:34 Trazodone HCl (Desyrel) 100 mg PO HS PRN PRN Reason: Sleep Stop: 06/01/19 08:34 Warfarin Sodium (Coumadin) 10 mg PO [id number]@1600 SETH Stop: 05/25/19 15:59 Last Admin: 05/02/19 16:02 Dose: 10 mg Documented by: Warfarin Sodium (Coumadin) 7.5 mg PO [id number]@1600 SETH Stop: 05/26/19 15:59 Last Admin: 04/30/19 15:28 Dose: 7.5 mg Documented by: Mental Health & Subst Abuse Tx Psychiatrist Name of Psychiatrist: [facility] - Dr. Harrington Psychiatrist's Time of Appointment with Psychiatrist: Dr Todd Psychiatric Appointment Comment: [address] [place] [address] [address], [place] [address] Therapist Name of Therapist: [facility] - Juan Menendez [facility] Therapist's Therapy Appointment Comment: [address] [facility] Front Office Representative Name of Front Office Representative: [employer] - Av Perez Phone Number for Front Office Representative: [phone] Case Management Appointment Comment: [address] [facility], [address], [place] Post Discharge Appointments Primary Care Physician Name Of Family Doctor: [facility] - Dr. Catalina Todd Primary Care Provider Appointment Comment: [address] [place] [address] Contact Information Discharge Discharge [address]: [address] [place] [address] CPT Code CPT Code 77063 (1) DVT (deep venous thrombosis) DVT location: lower extremity (2) Cellulitis Site of cellulitis: unspecified site Qualified Code(s): L03.90 - Cellulitis, unspecified (3) Depression Active/Remission status: currently active Depression Type: major depressive disorder Major depression episode severity: severe Major depression recurrence: recurrent Psychotic features: with psychotic features Qualified Code(s): F33.3 - Major depressive disorder, recurrent, severe with psychotic symptoms (4) Hyperlipidemia Hyperlipidemia type: unspecified Qualified Code(s): E78.5 - Hyperlipidemia, unspecified
[2019-05-03] MEDS: WARFARIN SOD 7.5 MG TAB PO SCH (17:40)
[2019-05-03] MEDS: SIMVASTATIN 40 MG TAB PO SCH (21:30)
[2019-05-04 07:50] LABS: INR 2.8 (0.9-1.1); Prothrombin Time 26.6 Seconds (9.0-12.0)
[2019-05-04] MEDS: SERTRALINE HCL 100 MG TABLET PO SCH (08:38)
[2019-05-04] MEDS: ARIPiprazole 10 MG TAB PO SCH (08:38)
--- NOTE | 2019-05-04 09:25 | Psychiatric Progress Note ---
Date of Service May 04, 2019 Impression / Recommendations Surya Howard is a 59-year-old single male with a history of severe psychotic depression and generalized anxiety, as well as long-standing treatment nonadherence which has resulted in multiple involuntary outpatient commitments, who was just discharged from our unit 2 weeks prior to being hospitalized medically for DVT and lower extremity cellulitis in the context of medication nonadherence at home. The patient's has been treated with aripiprazole and sertraline for his psychotic depression. The dose of aripiprazole has been titrated to a dose of 30 mg a day, and the dose of sertraline has been titrated to a dose of 200 mg a day. Pt had a meeting with his disease case manager and [facility] to discuss discharge possibilities - he has been accepted to [facility], and they are asking to know his willingness in the next day or so. Pt has been more interactive on the unit, and his condition appears to be improving. Discharge to an unsupervised setting would not be advised given his history of medication non-compliance and risk of harm with inability to reliably attend to ADLs at home. Inpatient psychiatric treatment remains medically necessary at this time. (1) Depression: 04/05 -continue sertraline 200 mg daily and quetiapine 50 mg at bedtime, which he is intermittently refusing. If he does not become more compliant with oral medications, we will pursue medications over objection, as his psychotic depression is unlikely to remit without medication, and he has responded well to these medications in the past. -Get records from outpatient psychiatrist, and coordinate care with his outpatient therapist and disease case manager. -Brother, Amie, is his power of housekeeper/custodian/laundry worker we will enlist his assistance with medical decision making as the patient currently lacks capacity to refuse the recommended treatment. -Encourage patient to be out of bed during the day and participating in groups and therapy. Consider locking his door during group time if he is unable to do this on his own. -He was on an involuntary outpatient commitment, so we will file for a conversion hearing to convert to 304 involuntary treatment. 04/06 -patient has refused sertraline the past 2 days, and although he took quetiapine the first night, he refused it last night. He is refusing all groups, has not bathed, and is refusing to eat and less staff bring food to his room. -We will place him in a medically necessary private room due to severity of mood and psychotic symptoms, and request staff to lock his door during group time him to be more engaged in treatment. -Staff contacted the patient's [id number], who clarified that the patient does not actually have a power of housekeeper/custodian/laundry worker, although this has been documented on admission here. She reported the family is frustrated and concerned with the patient's lack of ability to care for his mental and physical needs. The family has been exploring supportive living, specifically [facility]. -Patient's disease case manager, Av Perez, will come in for a meeting tomorrow. 04/07 -improved medication compliance with staff support; continue sertraline 200 mg daily and increase quetiapine to 100 mg at bedtime. -thoroughbred horse farm manager, Av Perez, is coming to meet with patient today. 04/08 - Continue sertraline 200mg and increase quetiapine to 150mg HS. -On 304 commitment. Continue to encourage him to sign [facility] for [facility] 04/09 -pt refused quetiapine last night, having dose tonight be 1/2 of 300mg pill of quetiapine to help lower pill burden and might hold his lipid med tonight as well to help improve likelihood of pt taking his atypical antipsychotic dose that seems to be medication most needed at this time. goal is to titrate up quetiapine. Pharmacy has 50,100,200, and 300mg size pills, (in Xr form there are 150mg size, if switching to xr in future would advise dosing around 8pm. addressed pt delusional thinking and attempted reality testing. 04/10 took seroquel 150mg dose on 04/09 and noticing some improvement today pt might be improving some and might be more open to treatment ceased MNPR at this time 04/11 - Continue sertraline 200mg daily - will titration quetiapine to 200mg daily, can give previous dose of 150mg (1/2 of 300mg tablet) if refuses - Having a rather difficult day today, limited engagement in programming, continues to believe he is dying 04/12 - Continue as above. Pt refused quetiapine last evening, to receive titrated dose of 200mg tonight if compliant - Had a decent morning, though returned to fixation on dying by the afternoon 04/13 -Continue sertraline, has been taking the 200 mg dose for the past 7 days. -Continues to intermittently refuse quetiapine, only taking it on 50% of days in the past week, and received first dose of 200 mg at bedtime last night. He is unwilling to discuss other atypical antipsychotics and remains floridly delusional without insight. He lacks capacity to refuse treatment recommendations for an antipsychotic, as 1 of his delusions is that he has diabetes and is going to at any moment, so believes any treatment is futile. Recommend medications over objection, with a trial of either aripiprazole or paliperidone to target psychotic symptoms, with an IM of olanzapine for refusal of oral medication. If he responds well and tolerates the oral antipsychotic, will then transition him to the long-acting injectable form. We will asked Dr. Delarosa to see him tomorrow for a second opinion. 04/14 - The patient continues to intermittently refuse quetiapine, only taking it on 50% of days in the past week. Today, he tells me that he will refuse quetiapine and all medications, stating, "What's the use? I'm dying." He is unwilling to discuss other antipsychotics and I agree with Dr. Vann's finding that he remains floridly delusional without insight. He lacks capacity to refuse treatment recommendations for an antipsychotic, as one of his delusions is that he has diabetes (he doesn't) and is going to "maybe right now." Within this context he tells me that treatment is futile and he will refuse to take what we are prescribing to him.. I endorse the recommendation for medications over objection. I have ordered aripiprazole 10 mg daily by mouth to treat the patient's psychosis, and I have ordered olanzapine 10 mg IM for refusal of p.o. aripiprazole. Without consistent application of antipsychotic medications at the appropriate dose, it can reasonably be expected that the patient will remain dangerous to himself to the degree that inpatient psychiatric hospitalization will remain medically necessary. 04/15 -Quetiapine was discontinued in favor of aripiprazole, with an order for olanzapine IM over objection if the patient declines aripiprazole. He did, in fact, voluntarily take aripiprazole 10 mg yesterday and this morning, and reports that he did not have any difficulty tolerating it, either yesterday, or this morning. -He has been refusing sertraline. An issue may be that he may not have realized that sertraline and Zoloft are the same medication. Today, he tells me that he has a past history of febrile response to Zoloft. I have explained to him that our finding is that he is suffering from a major depression that has caused him to lose touch with certain aspects of reality and, for that reason, we feel very strongly that he must take an antidepressant medication as part of recovery. The patient tells us that he will now agree to take sertraline (Zoloft) but this remains to be seen. 04/16 -So far he has been compliant with increased dose of Abilify. Appears he would likely benefit from long-acting injectable if he continues to tolerate well 04/17 -Appears more depressive today. -Remains delusionally preoccupied -Increase Abilify to 20 mg daily. Has been compliant 04/18 -Continue aripiprazole and sertraline, and discontinue lorazepam. Encourage patient to be out of bed and participating in treatment. 04/19 - Continue as above - Pt reporting improvement in headache after receiving a heating pad - will continue to monitor. Possible etiology includes current environment (dry air, bright lights, ect.), medication side effect, or other medical concern. Will continue to observe for now, consider hospitalist bentley given his anticoagulation history to determine if NSAIDs could be appropriately considered in his case for intermittent and limited use 04/20 - Continue current medication regimen - Continue symptomatic treatment for headache, reporting Tylenol is effective although he is requiring routine dosing 04/21 - Titrating aripiprazole to 30mg qAM starting tomorrow; continue sertraline 200mg daily. Pt continues to be focused on number of pills being given to him, but this is difficult to rectify based on available pharmacy dosing of ordered medications - Tylenol remains helpful for headache symptoms, but symptoms return throughout the day - Discussed persistent reports of headache with hospitalist - felt to be ok to offer ibuprofen prn for headache symptoms despite anticoagulation status; continue to monitor - Anticipate meeting with [facility] representatives next week 04/22 -The patient does report improvement in his depression, although he also says that he feels that his depression is "so severe" that medications are unlikely to be more than a "drop in the bucket." -The patient's affect is noticeably brighter and more animated. Today, he laughed several times, appropriately, during our encounter. -The plan is to continue sertraline 200 mg daily in combination with ar ipiprazole 30 mg daily. -We are also emphasizing reality testing and illness teaching through individual and group therapies. The patient remains active and activity therapy and tells us that this is 1 of his favorite parts of hospitalization. 04/25 - Continue current medication regimen - Pt has been more isolative recently - Continue to encourage participation in group programming 04/26 - Continue current medication regimen - Feeling better physically today - Continue to encourage group participation - Meeting with [facility] and disease case manager today 04/27 - Continue current medication regimen - Meeting with [facility] yesterday, who will call regarding acceptance - Continue to explore housing possibilities, as patient feels he will not be able to live independently 04/28 - 05/01 - Continue current medication regimen, condition seems to be improving mildly over the past 2-3 days - Awaiting decision for [facility] regarding acceptance to their personal intermediate for discharge - will explore other options with patient as well - Continue to encourage group participation 05/02 - 05/03 - Continue current medication regimen - Pt has been accepted to [facility], awaiting patient's decision to be discharged there - Continue to encourage group participation 05/04 - Explored the option of Abilify Maintena today, given patient's history of medication noncompliance - copay as it stands would be $800+ dollars - We have reached out to [email or web address] rep to determine if there is an opportunity to reduce cost to patient for this medication - Copay for oral aripiprazole was reported $400+ dollars - will need to explore this prior to discharge - Otherwise, patient is attending groups and is appropriate in interactions with staff and peers (2) Catatonia: 04/05 -continue Lorazepam 2 mg twice daily and taper over hospital stay. Continue to treat underlying medical conditions as below. 04/06 -decrease Lorazepam to 1 mg twice daily, as he is intermittently refusing doses and it has not been overly helpful. 04/13 -patient has been refusing the at bedtime dose of lorazepam, so will discontinue it. The morning dose can likely be discontinued prior to discharge. 04/14 -The patient is poorly responsive, but not catatonic at this point. 04/18 -discontinue lorazepam, as patient retreating to his bed and want to mi nimize sedating effects. (3) Generalized anxiety disorder: 04/05 -continue SSRI and lorazepam as above, offer hydroxyzine as needed for anxiety. Consider resuming buspirone if indicated. 04/14 -The patient's anxious distress at this point seems primarily attributable to his delusional believes that he is moribund. Our plan is to continue to aggressively treat his psychosis and reassess anxious distress once the patient's psychotic features have resolved. 04/15 -The patient appears to be somewhat less anxious today, a circumstance that may be attributable to aripiprazole. Hopefully, the patient will also begin to take sertraline as prescribed. 04/22 -The patient appears to be less anxious today and tells us that he is feeling more relaxed and less upset. 04/25 - Continues to be preoccupied with perceived physical deterioration, continue current medication regimen 05/02 - Increased anxiety today after being accepted to [facility], patient admits to concern regarding finances (4) Cellulitis: 04/05 -complete course of Keflex, last dose 04/08/2019. Infection is resolving. 04/22 -Infection appears to have resolved. (5) DVT (deep venous thrombosis): 04/05 -continue Coumadin 5 mg daily, daily PT/INR, and Lovenox until INR is therapeutic. Coordinate care with Dr. Loyola, who sees him at the anticoagulation clinic. 04/07 -INR is 1.2 today, continue Coumadin and Lovenox. Coordinate with Dr. Loyola 04/11 - Reviewed consultation recommendations - discussed recs with Dr. Loyola via phone - Orders provided for patient to receive 15mg of warfarin today, then a schedule of 10mg daily SuTuThSa, and 5mg daily MWF - Recommended that enoxaparin continue until his INR is therapeutic for two days (two day overlap) - Dr. Loyola to continue to follow 04/14 -Anticoagulation therapy continues. PT and PTT values are as expected. -The patient reports no pain or tenderness in his lower extremities. 04/15 -Consulted telephonically yesterday, telephonically, with hematology. They are following, and agree that the patient's current lab values are in the target range. Several medication adjustments are being planned, and the patient remains asymptomatic. 04/16 -PT INR 26.7 and 2.8 respectively today 04/17 -INR 2.9 today 04/22 -The patient's INR levels have been steadily rising and this morning's value was 3.5. The addition of sertraline to the patient's medication regimen may be impacting upon his coagulation values. The patient remains asymptomatic, in terms of evidence of a pulmonary embolism. We will hold his daily warfarin level today, repeat the warfarin coagulation studies in the morning, and will plan to resume warfarin (at the half dose) on Thursday with a full dose on Thursday, as indicated by his lab values. 04/24 --clarification of lab frequency with coag clinic tomorrow 04/25, scheduled for 5 mg Coumadin this pm per Dr. Loyola. 04/25 - Restart coumadin regimen prior to its holding on 04/22 - Restart daily lab draws - PT INR is 18.2 and 1.9 respectively today - Appreciate ongoing input from anticoagulation clinic regarding recommendations 04/27 - Coumadin schedule changed per Dr. Loyola, who is following - Call placed to discuss possibility of alternative anticoagulation medications 04/28 - After consulting anticoagulation clinic to discuss alternative medication considerations, option of Eliquis 5mg BID was discussed but cost was reportedly an issue in the past - Medication was called to patient's pharmacy, who reported patient's co-pay for a one-month supply would be $345, which is not a financially feasible option for the patient at this time 05/01 - Coumadin dosing held today per protocol, as PT was 4.1 this morning (6) Hyperlipidemia: 04/05 -continue home statin. 04/09 and 04/10 aiming for pt to take med but comfortable with pt refusing this med at current time if helps him obtain his other medications, aim is for improved meed compliance occur as psychiatrically improves, lexy since currently pt pill load a factor in pt compliance Inventory Assets Strengths: Educated, supportive family Needs: Compliance with treatment, increase community supports Risk Factors Assessment Male: Yes : Yes Do You Have Access To A Gun?: No Health Problems: Yes Mental Health Diagnoses: Yes Substance Use Disorders: No Previous Attempt: Yes Family History of Suicide: No Previous Psychiatric Hospitalization: Yes Hopelessness: Yes Smoker: No Protective Factors Assessment Tenriism Beliefs: No : No Responsible for Young Children: No Employed: No Stable Relationships: Yes Supportive Family: Yes Good Rapport with Provider: No Interval History Identifying Information YINKA ROMERO is a 59-year-old M who currently lives alone in an [place], has a history of depression with psychosis, generalized anxiety disorder, treatment nonadherence and was on an involuntary outpatient commitment, and was admitted on 04/04/19 16:39 on a 302 involuntary commitment for depression with psychosis, treatment nonadherence, and inability to care for himself. He is on a 304 commitment as of 04/08/19. Chief Complaint "Eh, doing pretty good today I think." Review of Systems Notes Constitutional: denied Cardiovascular: denied Respiratory: denied Gastrointestinal: denied Neurological: denied Psychiatric: denies symptoms other than stated above Total of at least 10 systems reviewed, pertinent positives as above and in HPI. Sleep Information Total Hours of Sleep: 7 Sleep Comments: pt on q-15 minute checks Meal Information Percent Meal Consumed - Breakfast: 100 Percent Meal Consumed - Lunch: 100 Percent Meal Consumed - Dinner: 100 Nutrition Comment: documented from meal record worksheet Subjective Subjective Patient was seen & assessed and interval progress reviewed with treatment team. Staff reports the patient continues to demonstrate consistency of mood and thought process. Today is patient's 30-day treatment plan review. Patient was offered the opportunity to go outside yesterday, as bad weather was anticipated today. Patient declined this offer, as he was worried he would be more depressed coming back inside. Patient continues to be concerned [facility], and has yet to make a decision about his willingness to be discharged there. Patient was seen today to assess progress since admission. He states that he is feeling "pretty good actually." The patient shares with this provider that he has yet to make a decision about accepting the available bed at [facility], as he is still unsure about his financial situation. Patient states "I do not want to get there and have them kicked me out because I cannot pay anymore." Patient is interested in discussing this subject additionally with social work, and exploring possible opportunities to subsidize the cost. Patient was reminded by this provider that although these are things we can look into, it is not guaranteed that this will be an option for him. Reviewed with patient the progress he has been making recently and his admission. Patient admits to recognition of the importance of remaining on medications, and was agreeable to discussing Abilify Maintena as an option for medication administration. As explained to patient, that the injectable version of the medication will be given roughly every 4 weeks, and would reduce the number of medications he would have to take by mouth each day. Overall, patient was agreeable with the medication option and was willing to have us check on the cost. Patient admits to improvement in mood, but reports occasional thoughts of hopelessness. At this point in his admission, the patient states that this is more related to his extended hospitalization than it is to safety concerns with discharge. Patient reports that, with an adequate discharge plan, he would feel comfortable providing for his needs and maintaining his safety outside of the inpatient setting. He agrees that this is not likely to happen at this time, as housing is still uncertain. Physical Exam Psychiatric Orientation: alert, oriented x 3 and cooperative Apperance: appropriately dressed (Casually, in sweater and scrub pants), appropriately groomed (Hair and elam appear clean and neatly styled) and appeared stated age Eye Contact: + fair eye contact (Increased occurrence of direct eye contact) Motor Behavior: steady gait and station Speech: normal rate/rhythm/volume of speech Affect: + depressed affect (But improving, patient demonstrating brighter affect at moments), + anxious affect and mood congruent with affect Mood: + depressed mood ("Getting better" and "fine") and + anxious mood (Admits to increased anxiety when considering housing decisions) Thought Process: goal directed thought process, clear/coherent thought process and thought association intact Thought Content: reality based without delusions and + hopelessness (Admits this feeling is lightening over time) Has not verbalized statements about perceived diabetes diagnosis, or belief that he is dying Suicidal Thoughts: denies suicidal thoughts Homicidal Thoughts: denies homicidal thoughts Hallucinations: no auditory hallucinations and no visual hallucinations Cognition: attention grossly intact and language grossly intact Insight: + limited insight (Improving overall) Judgement: + fair judgement Vital Signs (Past 24 Hours) Last Vital Signs Temp 36.6 C 05/04/19 06:55 Pulse 67 05/04/19 06:55 Resp 18 05/04/19 06:55 BP 127/80 05/04/19 06:55 Pulse Ox 99 04/09/19 06:00 Results & Data Laboratory Results Laboratory Results - last 24 hr 05/04/19 07:30 PT 26.6 H INR 2.8 H Current Inpatient Medications Current Inpatient Medications: Current Inpatient Medications Acetaminophen (Tylenol) 650 mg PO Q4H PRN PRN Reason: Headache or Minor Fever Stop: 06/01/19 08:29 Al Hydrox/Mg Hydrox/Simethicone (Maalox) 30 ml PO Q4H PRN PRN Reason: GI Upset Stop: 06/01/19 08:29 Aripiprazole (Abilify) 30 mg PO QAM [facility] Stop: 05/22/19 08:59 Last Admin: 05/04/19 08:38 Dose: 30 mg Documented by: Hydroxyzine HCl (Vistaril) 25 mg PO Q4H PRN PRN Reason: Anxiety Stop: 06/01/19 08:34 Hydroxyzine HCl (Vistaril) 50 mg PO HSZ PRN PRN Reason: Insomnia Stop: 06/01/19 08:29 Ibuprofen (Motrin) 600 mg PO Q8H PRN PRN Reason: Pain Stop: 05/21/19 10:12 Magnesium Hydroxide (Milk Of Magnesia) 30 ml PO DAILY PRN PRN Reason: Constipation Stop: 06/01/19 08:34 Olanzapine (Zyprexa) 10 mg IM DAILY PRN PRN Reason: REFUSE ABILIFY Stop: 06/01/19 08:34 Quetiapine Fumarate (Seroquel) 200 mg PO HS PRN PRN Reason: Sleep Stop: 06/01/19 08:34 Sertraline HCl (Zoloft) 200 mg PO QAM [facility] Stop: 06/01/19 08:59 Last Admin: 05/04/19 08:38 Dose: 200 mg Documented by: Simvastatin (Zocor) 40 mg PO HS [facility] Stop: 06/01/19 21:59 Last Admin: 05/03/19 21:30 Dose: 40 mg Documented by: Sodium Chloride ([place] Nasal) 1 - 2 sprays NA PRN PRN PRN Reason: Nasal Dryness/Congestion Stop: 06/01/19 08:34 Trazodone HCl (Desyrel) 100 mg PO HS PRN PRN Reason: Sleep Stop: 06/01/19 08:34 Warfarin Sodium (Coumadin) 10 mg PO [id number]@1600 [facility] Stop: 05/25/19 15:59 Last Admin: 05/02/19 16:02 Dose: 10 mg Documented by: Warfarin Sodium (Coumadin) 7.5 mg PO [id number]@1600 [facility] Stop: 05/26/19 15:59 Last Admin: 05/03/19 17:40 Dose: 7.5 mg Documented by: Mental Health & Subst Abuse Tx Psychiatrist Name of Psychiatrist: Obdulia Guerrero Psychiatry - Dr. Harrington Psychiatrist's Time of Appointment with Psychiatrist: Dr Todd Psychiatric Appointment Comment: [address] [place] [address] [id number], [place] [address] Therapist Name of Therapist: [employer] - Juan Menendez [facility] Therapist's Therapy Appointment Comment: [address] [facility], [place] Graphics Manager Name of Graphics Manager: [employer] - Av Perez Phone Number for Graphics Manager: [phone] Case Management Appointment Comment: [address], [address], [place] Post Discharge Appointments Primary Care Physician Name Of Family Doctor: [facility] - Dr. Catalina Todd Primary Care Provider Appointment Comment: [address] [place] [id number] Contact Information Discharge Discharge Address: [address] [place] [address] CPT Code CPT Code 13576 (1) DVT (deep venous thrombosis) DVT location: lower extremity (2) Cellulitis Site of cellulitis: unspecified site Qualified Code(s): L03.90 - Cellulitis, unspecified (3) Depression Active/Remission status: currently active Depression Type: major depressive disorder Major depression episode severity: severe Major depression recurrence: recurrent Psychotic features: with psychotic features Qualified Code(s): F33.3 - Major depressive disorder, recurrent, severe with psychotic symptoms (4) Hyperlipidemia Hyperlipidemia type: unspecified Qualified Code(s): E78.5 - Hyperlipidemia, unspecified
[2019-05-04] MEDS: WARFARIN SOD 10 MG TAB PO SCH (17:19)
[2019-05-04] MEDS: SIMVASTATIN 40 MG TAB PO SCH (21:21)
[2019-05-05] MEDS: ARIPiprazole 10 MG TAB PO SCH (08:00)
[2019-05-05] MEDS: SERTRALINE HCL 100 MG TABLET PO SCH (08:00)
[2019-05-05 08:39] LABS: INR 3.3 (0.9-1.1); Prothrombin Time 30.8 Seconds (9.0-12.0)
--- NOTE | 2019-05-05 09:31 | Psychiatric Progress Note ---
Date of Service May 05, 2019 Impression / Recommendations Surya Howard is a 59-year-old single male with a history of severe psychotic depression and generalized anxiety, as well as long-standing treatment nonadherence which has resulted in multiple involuntary outpatient commitments, who was just discharged from our unit 2 weeks prior to being hospitalized medically for DVT and lower extremity cellulitis in the context of medication nonadherence at home. The patient's has been treated with aripiprazole and sertraline for his psychotic depression. The dose of aripiprazole has been titrated to a dose of 30 mg a day, and the dose of sertraline has been titrated to a dose of 200 mg a day. Pt is willing for discharge to [facility], which has availability as early as tomorrow morning. Discharge to an unsupervised setting would not be advised given his history of medication non-compliance and risk of harm with inability to reliably attend to ADLs at home. Inpatient psychiatric treatment remains medically necessary at this time as we coordinate final details of discharge plan. (1) Depression: 04/05 -continue sertraline 200 mg daily and quetiapine 50 mg at bedtime, which he is intermittently refusing. If he does not become more compliant with oral medications, we will pursue medications over objection, as his psychotic depression is unlikely to remit without medication, and he has responded well to these medications in the past. -Get records from outpatient psychiatrist, and coordinate care with his outpatient therapist and case fitter. -Brother, Amie, is his power of criminal defense attorney we will enlist his assistance with medical decision making as the patient currently lacks capacity to refuse the recommended treatment. -Encourage patient to be out of bed during the day and participating in groups and therapy. Consider locking his door during group time if he is unable to do this on his own. -He was on an involuntary outpatient commitment, so we will file for a conversion hearing to convert to 304 involuntary treatment. 04/06 -patient has refused sertraline the past 2 days, and although he took quetiapine the first night, he refused it last night. He is refusing all groups, has not bathed, and is refusing to eat and less staff bring food to his room. -We will place him in a medically necessary private room due to severity of mood and psychotic symptoms, and request staff to lock his door during group time him to be more engaged in treatment. -Staff contacted the patient's [id number], who clarified that the patient does not actually have a power of criminal defense attorney, although this has been documented on admission here. She reported the family is frustrated and concerned with the patient's lack of ability to care for his mental and physical needs. The family has been exploring supportive living, specifically [facility]. -Patient's case fitter, Av Perez, will come in for a meeting tomorrow. 04/07 -improved medication compliance with staff support; continue sertraline 200 mg daily and increase quetiapine to 100 mg at bedtime. -manager e learning, Av Perez, is coming to meet with patient today. 04/08 - Continue sertraline 200mg and increase quetiapine to 150mg HS. -On 304 commitment. Continue to encourage him to sign YAYA for [facility] 04/09 -pt refused quetiapine last night, having dose tonight be 1/2 of 300mg pill of quetiapine to help lower pill burden and might hold his lipid med tonight as well to help improve likelihood of pt taking his atypical antipsychotic dose that seems to be medication most needed at this time. goal is to titrate up quetiapine. Pharmacy has 50,100,200, and 300mg size pills, (in Xr form there are 150mg size, if switching to xr in future would advise dosing around 8pm. addressed pt delusional thinking and attempted reality testing. 04/10 took seroquel 150mg dose on 04/09 and noticing some improvement today pt might be improving some and might be more open to treatment ceased MNPR at this time 04/11 - Continue sertraline 200mg daily - will titration quetiapine to 200mg daily, can give previous dose of 150mg (1/2 of 300mg tablet) if refuses - Having a rather difficult day today, limited engagement in programming, continues to believe he is dying 04/12 - Continue as above. Pt refused quetiapine last evening, to receive titrated dose of 200mg tonight if compliant - Had a decent morning, though returned to fixation on dying by the afternoon 04/13 -Continue sertraline, has been taking the 200 mg dose for the past 7 days. -Continues to intermittently refuse quetiapine, only taking it on 50% of days in the past week, and received first dose of 200 mg at bedtime last night. He is unwilling to discuss other atypical antipsychotics and remains floridly delusional without insight. He lacks capacity to refuse treatment recommendations for an antipsychotic, as 1 of his delusions is that he has diabetes and is going to at any moment, so believes any treatment is futile. Recommend medications over objection, with a trial of either aripiprazole or paliperidone to target psychotic symptoms, with an IM of olanzapine for refusal of oral medication. If he responds well and tolerates the oral antipsychotic, will then transition him to the long-acting injectable form. We will asked Dr. Delarosa to see him tomorrow for a second opinion. 04/14 - The patient continues to intermittently refuse quetiapine, only taking it on 50% of days in the past week. Today, he tells me that he will refuse quetiapine and all medications, stating, "What's the use? I'm dying." He is unwilling to discuss other antipsychotics and I agree with Dr. Vann's finding that he remains floridly delusional without insight. He lacks capacity to refuse treatment recommendations for an antipsychotic, as one of his delusions is that he has diabetes (he doesn't) and is going to "maybe right now." Within this context he tells me that treatment is futile and he will refuse to take what we are prescribing to him.. I endorse the recommendation for medications over objection. I have ordered aripiprazole 10 mg daily by mouth to treat the patient's psychosis, and I have ordered olanzapine 10 mg IM for refusal of p.o. aripiprazole. Without consistent application of antipsychotic medications at the appropriate dose, it can reasonably be expected that the patient will remain dangerous to himself to the degree that inpatient psychiatric hospitalization will remain medically necessary. 04/15 -Quetiapine was discontinued in favor of aripiprazole, with an order for olanzapine IM over objection if the patient declines aripiprazole. He did, in fact, voluntarily take aripiprazole 10 mg yesterday and this morning, and reports that he did not have any difficulty tolerating it, either yesterday, or this morning. -He has been refusing sertraline. An issue may be that he may not have realized that sertraline and Zoloft are the same medication. Today, he tells me that he has a past history of febrile response to Zoloft. I have explained to him that our finding is that he is suffering from a major depression that has caused him to lose touch with certain aspects of reality and, for that reason, we feel very strongly that he must take an antidepressant medication as part of recovery. The patient tells us that he will now agree to take sertraline (Zoloft) but this remains to be seen. 04/16 -So far he has been compliant with increased dose of Abilify. Appears he would likely benefit from long-acting injectable if he continues to tolerate well 04/17 -Appears more depressive today. -Remains delusionally preoccupied -Increase Abilify to 20 mg daily. Has been compliant 04/18 -Continue aripiprazole and sertraline, and discontinue lorazepam. Encourage patient to be out of bed and participating in treatment. 04/19 - Continue as above - Pt reporting improvement in headache after receiving a heating pad - will continue to monitor. Possible etiology includes current environment (dry air, bright lights, ect.), medication side effect, or other medical concern. Will continue to observe for now, consider hospitalist bentley given his anticoagulation history to determine if NSAIDs could be appropriately considered in his case for intermittent and limited use 04/20 - Continue current medication regimen - Continue symptomatic treatment for headache, reporting Tylenol is effective although he is requiring routine dosing 04/21 - Titrating aripiprazole to 30mg qAM starting tomorrow; continue sertraline 200mg daily. Pt continues to be focused on number of pills being given to him, but this is difficult to rectify based on available pharmacy dosing of ordered medications - Tylenol remains helpful for headache symptoms, but symptoms return througho ut the day - Discussed persistent reports of headache with hospitalist - felt to be ok to offer ibuprofen prn for headache symptoms despite anticoagulation status; continue to monitor - Anticipate meeting with [facility] representatives next week 04/22 -The patient does report improvement in his depression, although he also says that he feels that his depression is "so severe" that medications are unlikely to be more than a "drop in the bucket." -The patient's affect is noticeably brighter and more animated. Today, he laughed several times, appropriately, during our encounter. -The plan is to continue sertraline 200 mg daily in combination with aripiprazole 30 mg daily. -We are also emphasizing reality testing and illness teaching through individual and group therapies. The patient remains active and activity therapy and tells us that this is 1 of his favorite parts of hospitalization. 04/25 - Continue current medication regimen - Pt has been more isolative recently - Continue to encourage participation in group programming 04/26 - Continue current medication regimen - Feeling better physically today - Continue to encourage group participation - Meeting with [facility] and case fitter today 04/27 - Continue current medication regimen - Meeting with [facility] yesterday, who will call regarding acceptance - Continue to explore housing possibilities, as patient feels he will not be able to live independently 04/28 - 05/01 - Continue current medication regimen, condition seems to be improving mildly over the past 2-3 days - Awaiting decision for [facility] regarding acceptance to their personal senior living for discharge - will explore other options with patient as well - Continue to encourage group participation 05/02 - 05/03 - Continue current medication regimen - Pt has been accepted to [facility], awaiting patient's decision to be discharged there - Continue to encourage group participation 05/04 - Explored the option of Abilify Maintena today, given patient's history of medication noncompliance - copay as it stands would be $800+ dollars - We have reached out to pharmaceutical rep to determine if there is an opportunity to reduce cost to patient for this medication - Copay for oral aripiprazole was reported $400+ dollars - will need to explore this prior to discharge - Otherwise, patient is attending groups and is appropriate in interactions with staff and peers 05/05 - Confirmed oral aripiprazole is available at specific retail pharmacies for ~$20 a month with Good [facility] coupon code - Will coordinate with [facility] in regard to how prescription medications are handled - Pt agreeable with discharge to [facility] tomorrow - Continue current medication regimen (2) Catatonia: 04/05 -continue Lorazepam 2 mg twice daily and taper over hospital stay. Continue to treat underlying medical conditions as below. 04/06 -decrease Lorazepam to 1 mg twice daily, as he is intermittently refusing doses and it has not been overly helpful. 04/13 -patient has been refusing the at bedtime dose of lorazepam, so will discontinue it. The morning dose can likely be discontinued prior to discharge. 04/14 -The patient is poorly responsive, but not catatonic at this point. 04/18 -discontinue lorazepam, as patient retreating to his bed and want to minimize sedating effects. (3) Generalized anxiety disorder: 04/05 -continue SSRI and lorazepam as above, offer hydroxyzine as needed for anxiety. Consider resuming buspirone if indicated. 04/14 -The patient's anxious distress at this point seems primarily attributable to his delusional believes that he is moribund. Our plan is to continue to aggressively treat his psychosis and reassess anxious distress once the patient's psychotic features have resolved. 04/15 -The patient appears to be somewhat less anxious today, a circumstance that may be attributable to aripiprazole. Hopefully, the patient will also begin to take sertraline as prescribed. 04/22 -The patient appears to be less anxious today and tells us that he is feeling more relaxed and less upset. 04/25 - Continues to be preoccupied with perceived physical deterioration, continue current medication regimen 05/02 - Increased anxiety today after being accepted to [facility], patient admits to concern regarding finances (4) Cellulitis: 04/05 -complete course of Keflex, last dose 04/08/2019. Infection is resolving. 04/22 -Infection appears to have resolved. (5) DVT (deep venous thrombosis): 04/05 -continue Coumadin 5 mg daily, daily PT/INR, and Lovenox until INR is therapeutic. Coordinate care with Dr. Loyola, who sees him at the anticoagulation clinic. 04/07 -INR is 1.2 today, continue Coumadin and Lovenox. Coordinate with Dr. Loyola 04/11 - Reviewed consultation recommendations - discussed recs with Dr. Loyola via phone - Orders provided for patient to receive 15mg of warfarin today, then a schedule of 10mg daily SuTuThSa, and 5mg daily MWF - Recommended that enoxaparin continue until his INR is therapeutic for two days (two day overlap) - Dr. Loyola to continue to follow 04/14 -Anticoagulation therapy continues. PT and PTT values are as expected. -The patient reports no pain or tenderness in his lower extremities. 04/15 -Consulted telephonically yesterday, telephonically, with hematology. They are following, and agree that the patient's current lab values are in the target range. Several medication adjustments are being planned, and the patient remains asymptomatic. 04/16 -PT INR 26.7 and 2.8 respectively today 04/17 -INR 2.9 today 04/22 -The patient's INR levels have been steadily rising and this morning's value was 3.5. The addition of sertraline to the patient's medication regimen may be impacting upon his coagulation values. The patient remains asymptomatic, in terms of evidence of a pulmonary embolism. We will hold his daily warfarin level today, repeat the warfarin coagulation studies in the morning, and will plan to resume warfarin (at the half dose) on Thursday with a full dose on Thursday, as indicated by his lab values. 04/24 --clarification of lab frequency with coag clinic tomorrow 04/25, scheduled for 5 mg Coumadin this pm per Dr. Loyola. 04/25 - Restart coumadin regimen prior to its holding on 04/22 - Restart daily lab draws - PT INR is 18.2 and 1.9 respectively today - Appreciate ongoing input from anticoagulation clinic regarding recomme ndations 04/27 - Coumadin schedule changed per Dr. Loyola, who is following - Call placed to discuss possibility of alternative anticoagulation medications 04/28 - After consulting anticoagulation clinic to discuss alternative medication considerations, option of Eliquis 5mg BID was discussed but cost was reportedly an issue in the past - Medication was called to patient's pharmacy, who reported patient's co-pay for a one-month supply would be $345, which is not a financially feasible option for the patient at this time 05/01 - Coumadin dosing held today per protocol, as PT was 4.1 this morning 05/05 - Reached out to anticoagulation clinic to update on likely discharge tomorrow - Planning to coordinate care regarding discharge coumadin dose and timing of lab draws - Confirmed that [facility] is able to perform PT/INR at their facility (6) Hyperlipidemia: 04/05 -continue home statin. 04/09 and 04/10 aiming for pt to take med but comfortable with pt refusing this med at current time if helps him obtain his other medications, aim is for improved meed compliance occur as psychiatrically improves, lexy since currently pt pill load a factor in pt compliance Inventory Assets Strengths: Educated, supportive family Needs: Compliance with treatment, increase community supports Risk Factors Assessment Male: Yes : Yes Do You Have Access To A Gun?: No Health Problems: Yes Mental Health Diagnoses: Yes Substance Use Disorders: No Previous Attempt: Yes Family History of Suicide: No Previous Psychiatric Hospitalization: Yes Hopelessness: Yes Smoker: No Protective Factors Assessment Voodoo Beliefs: No : No Responsible for Young Children: No Employed: No Stable Relationships: Yes Supportive Family: Yes Good Rapport with Provider: No Interval History Identifying Information YINKA ROMERO is a 59-year-old M who currently lives alone in an [place], has a history of depression with psychosis, generalized anxiety disorder, treatment nonadherence and was on an involuntary outpatient commitment, and was admitted on 04/04/19 16:39 on a 302 involuntary commitment for depression with psychosis, treatment nonadherence, and inability to care for himself. He is on a 304 commitment as of 04/08/19. Chief Complaint "Eh, ok I guess." Review of Systems Notes Constitutional: reports having "lost my strength", but physical complaints are vague Cardiovascular: denied Respiratory: denied Gastrointestinal: denied Neurological: vague reports of feeling weak Psychiatric: denies symptoms other than stated above Total of at least 10 systems reviewed, pertinent positives as above and in HPI. Sleep Information Total Hours of Sleep: 8.5 Sleep Comments: pt on q-15 minute checks Meal Information Percent Meal Consumed - Breakfast: 100 Percent Meal Consumed - Lunch: 100 Percent Meal Consumed - Dinner: 100 Nutrition Comment: documented from meal record worksheet Subjective Subjective Patient was seen & assessed and interval progress reviewed with nursing and social work. Staff reports patient still needs to determine his willingness to go to [facility] after discharge. Otherwise, his condition reportedly remains stable. Pt was seen today to assess progress since admission. Pt states he is "ok" today. He reports some hesitation about committing to the personal senior living, but admits "I can't stay here forever." Pt denies having specific concerns or things he feels could be modified by additional time on the unit. We did review plan to continue oral aripiprazole with a coupon card. He admits to questions about transportation to the facility and how they will get his medications. Otherwise, patient does report willingness to go to the [facility]. He later admits to social work that he feels he could go tomorrow, and it is confirmed the [facility] can take him at that time. Pt denies SI and admits to desire to leave the hospital so he can "get some more exercise than I get here." Pt denies other needs or concerns today. Physical Exam Psychiatric Orientation: alert, oriented x 3 and cooperative Apperance: appropriately dressed, appropriately groomed and appeared stated age Eye Contact: + fair eye contact Motor Behavior: steady gait and station and no abnormal motor movements Speech: normal rate/rhythm/volume of speech Affect: + depressed affect (demonstrating moments of bright affect, joking more) and mood congruent with affect Mood: + depressed mood ("Eh, ok I guess") Thought Process: goal directed thought process, clear/coherent thought process and thought association intact Thought Content: reality based without delusions; no hopelessness Suicidal Thoughts: denies suicidal thoughts Homicidal Thoughts: denies homicidal thoughts Hallucinations: no auditory hallucinations and no visual hallucinations Cognition: attention grossly intact and language grossly intact Insight: + limited insight Judgement: + fair judgement Vital Signs (Past 24 Hours) Last Vital Signs Temp 36.6 C 05/05/19 06:00 Pulse 66 05/05/19 06:56 Resp 15 05/05/19 06:00 BP 121/83 05/05/19 06:56 Pulse Ox 99 04/09/19 06:00 Results & Data Laboratory Results Laboratory Results - last 24 hr 05/05/19 08:11 PT 30.8 H INR 3.3 H Current Inpatient Medications Current Inpatient Medications: Current Inpatient Medications Acetaminophen (Tylenol) 650 mg PO Q4H PRN PRN Reason: Headache or Minor Fever Stop: 06/01/19 08:29 Al Hydrox/Mg Hydrox/Simethicone (Maalox) 30 ml PO Q4H PRN PRN Reason: GI Upset Stop: 06/01/19 08:29 Aripiprazole (Abilify) 30 mg PO QAM SETH Stop: 05/22/19 08:59 Last Admin: 05/05/19 08:00 Dose: 30 mg Documented by: Hydroxyzine HCl (Vistaril) 25 mg PO Q4H PRN PRN Reason: Anxiety Stop: 06/01/19 08:34 Hydroxyzine HCl (Vistaril) 50 mg PO HSZ PRN PRN Reason: Insomnia Stop: 06/01/19 08:29 Ibuprofen (Motrin) 600 mg PO Q8H PRN PRN Reason: Pain Stop: 05/21/19 10:12 Magnesium Hydroxide (Milk Of Magnesia) 30 ml PO DAILY PRN PRN Reason: Constipation Stop: 06/01/19 08:34 Olanzapine (Zyprexa) 10 mg IM DAILY PRN PRN Reason: REFUSE ABILIFY Stop: 06/01/19 08:34 Quetiapine Fumarate (Seroquel) 200 mg PO HS PRN PRN Reason: Sleep Stop: 06/01/19 08:34 Sertraline HCl (Zoloft) 200 mg PO QAM SETH Stop: 06/01/19 08:59 Last Admin: 05/05/19 08:00 Dose: 200 mg Documented by: Simvastatin (Zocor) 40 mg PO HS SETH Stop: 06/01/19 21:59 Last Admin: 05/04/19 21:21 Dose: 40 mg Documented by: Sodium Chloride ([place] Nasal) 1 - 2 sprays NA PRN PRN PRN Reason: Nasal Dryness/Congestion Stop: 06/01/19 08:34 Trazodone HCl (Desyrel) 100 mg PO HS PRN PRN Reason: Sleep Stop: 06/01/19 08:34 Warfarin Sodium (Coumadin) 10 mg PO [id number]@1600 SETH Stop: 05/25/19 15:59 Last Admin: 05/04/19 17:19 Dose: 10 mg Documented by: Warfarin Sodium (Coumadin) 7.5 mg PO TuThSa@1600 SETH Stop: 05/26/19 15:59 Last Admin: 05/03/19 17:40 Dose: 7.5 mg Documented by: Mental Health & Subst Abuse Tx Psychiatrist Name of Psychiatrist: [facility] - Dr. Harrington Psychiatrist's Time of Appointment with Psychiatrist: Dr Todd Psychiatric Appointment Comment: [facility] [id number] [place] [address] Therapist Name of Therapist: [email or web address] - Juan Menendez [facility] Therapist's Therapy Appointment Comment: [address] [facility], [place] Quiller Operator Name of Quiller Operator: [employer] - Av Perez Phone Number for Quiller Operator: [phone] Case Management Appointment Comment: [address] [facility], [address], [place] Post Discharge Appointments Primary Care Physician Name Of Family Doctor: [facility] - Dr. Catalina Todd Primary Care Provider Appointment Comment: [address] [facility] [address] Contact Information Discharge Discharge Address: [address] [place] [id number] CPT Code CPT Code 53426 (1) DVT (deep venous thrombosis) DVT location: lower extremity (2) Cellulitis Site of cellulitis: unspecified site Qualified Code(s): L03.90 - Cellulitis, unspecified (3) Depression Active/Remission status: currently active Depression Type: major depressive disorder Major depression episode severity: severe Major depression recurrence: recurrent Psychotic features: with psychotic features Qualified Code(s): F33.3 - Major depressive disorder, recurrent, severe with psychotic symptoms (4) Hyperlipidemia Hyperlipidemia type: unspecified Qualified Code(s): E78.5 - Hyperlipidemia, unspecified
[2019-05-05] MEDS: WARFARIN SOD 7.5 MG TAB PO SCH (15:52)
[2019-05-05] MEDS: SIMVASTATIN 40 MG TAB PO SCH (21:26)
[2019-05-06 07:48] LABS: INR 3.7 (0.9-1.1); Prothrombin Time 34.6 Seconds (9.0-12.0)
[2019-05-06] MEDS: ARIPiprazole 10 MG TAB PO SCH (08:47)
[2019-05-06] MEDS: SERTRALINE HCL 100 MG TABLET PO SCH (08:47)
--- NOTE | 2019-05-06 09:46 | Discharge Summary ---
Date of Service May 06, 2019 History of Present Illness Patient is well-known to me from several previous hospitalizations, most recently on psychiatric inpatient unit from 02/17/19 - 03/09/19 for for recurrent, severe MDD with psychosis s/p intentional OD with OTC sleep medications. He was discharged on a 304 involuntary outpatient commitment with outpatient treatment at [facility] with Dr. Harrington and therapy at [facility] with Juan Menendez. He presented to the ER several times in the 2 weeks since discharge; 03/19/2019 with complaints of head pain, neck pain, cold all over, chills, and lightheadedness. His sister in law stated he had continued to struggle and had called her that day stating he was dying. She was concerned that he was not eating or taking his medications properly. He was seen by the ER site pillowcase maker and reported that he had been diagnosed with diabetes, although medical records did not support that. He was ultimately discharged home. He returned to the ER 03/24/2019 reporting that he has diabetes and is losing his hearing and eyesight, had no feeling in his legs, and was sleeping poorly. He was again seen by the ER site pillowcase maker and was focused on having diabetes as well as multiple other medical problems, saying he could not even walk, his health was so poor. He denied suicidal thoughts, but reported ongoing loneliness, and refused voluntary psychiatric hospitalization, so was discharged home. 03/29/2019 he presented to the ER with confusion and persistent right lower extremity pain and swelling x2 days. His [id number] was concerned about the state of his right lower extremity, so contacted his outpatient pillowcase maker, who went to the patient's house. The patient did not answer the door, so police were notified. They entered the home and interacted with the patient, who was initially responsive, but at some point stopped responding to them, so was brought into the hospital. In the ER, he was nonverbal but awake and alert, following commands, and was found to have extensive nonocclusive thrombus in the popliteal vein of the right lower extremity. He had a head CT which was normal, and chest x-ray which showed slightly prominent basilar markings. Laboratory data was notable for normal WBCs, INR of 4.1, potassium of 3.4 but electrolytes otherwise normal, and UA with 2+ ketones. UDS was negative. He was also diagnosed with cellulitis of the right lower extremity, and was started on antibiotics and IV fluids for dehydration, and Coumadin was held due to supratherapeutic INR. His home psychotropic medications include bupropion, sertraline, trazodone, and buspirone; sertraline and trazodone were held due to concerns for serotonin syndrome, although this was thought to be unlikely due to lack of clonus, fever, hypertension. He was seen by myself on the psychiatric consult service 03/30/2019 for altered mental status; he had had episodes of unresponsiveness even to painful stimuli, which was not consistent with serotonin syndrome, and also lacked other signs of serotonin syndrome, so that was thought to be unlikely. The differential included delirium, catatonia, and severe psychotic depression, or some combination of those. Sertraline 200 mg daily and bupropion SR 100 mg daily were continued, while trazodone and buspirone were held. Quetiapine 50 mg at bedtime and 25 mg every 4 hours as needed was added to target psychosis and agitation, as he has responded well to this medication in the past. He was on the hospitalist service for 7 days, often noncompliant with treatment, refusing IV antibiotics at times, refusing oral medications intermittently, and refusing to allow staff to examine him. The bupropion was ultimately discontinued as he was refusing it, and he received 1 dose of olanzapine 10 mg IM for psychosis and agitation. He often refused to talk to clinicians when they came in the room, although he was alert and able to speak. He was seen by 2 physicians who agreed he lacked capacity to make medical decisions, and his brother who is his POA was enlisted to assist with treatment decisions. His behavior vacillated between mutism and refusal to participate in assessments and agitation, with loud, disorganized speech and anger at hospital staff. He expressed long-standing delusions that other males in his family were genetically perfect, "had the organs of a 20-year-old," and would live forever, while he was irreparably damaged by his bad genetic material. He was started on lorazepam for catatonia, which appeared beneficial, so it was scheduled 2 mg p.o. twice daily. His last 2 days on the hospitalist service he was more compliant with treatment, was switched to oral antibiotics which he took without difficulty, and was taking sertraline and lorazepam daily as scheduled. Upon medical clearance yesterday, he declined voluntary psychiatric treatment, so was admitted on a 302 involuntary commitment. During the admission nursing assessment, he was fixated on delusions that he was brought here to because he has complications of from diabetes. He ruminated on his past and mistakes he made when he was younger. He has been isolating in his room in bed and declining groups. This morning, he refused his antibiotic, antidepressant, and lorazepam. On my assessment, he refused to get out of bed to come to the interview room, stating "I've given up." He then closed his eyes, lay his head down, crossed his arms, and refused to respond to any further questions or to participate in the admission assessment. Physical Exam Psychiatric Orientation: alert, oriented x 3 and cooperative Apperance: appropriately dressed, appropriately groomed and appeared stated age Eye Contact: + fair eye contact (moments of direct, maintained eye contact; also periods of staring at floor) Motor Behavior: steady gait and station and no abnormal motor movements Speech: normal rate/rhythm/volume of speech (brief responses to questions) Affect: + depressed affect (improving over course of admission, brighter at times) and + anxious affect Mood: + depressed mood ("Eh, ok. I think I'll be alright") and + anxious mood ("Well obviously I'm nervous") Thought Process: goal directed thought process, clear/coherent thought process and thought association intact Thought Content: reality based without delusions; no hopelessness (reports feeling nervous, but optimistic about discharge) Suicidal Thoughts: denies suicidal thoughts and denies suicidal intent Homicidal Thoughts: denies homicidal thoughts Hallucinations: no auditory hallucinations and no visual hallucinations Cognition: attention grossly intact and language grossly intact Insight: + fair insight (continues to improve as patient's condition stabilizes) Judgement: + fair judgement (continues to improve as patient's condition stabilizes) Vital Signs (Past 24 Hours) Last Vital Signs Temp 36.7 C 05/06/19 07:01 Pulse 73 05/06/19 07:01 Resp 14 05/06/19 07:01 BP 120/82 05/06/19 07:01 Pulse Ox 99 04/09/19 06:00 Principal Diagnosis - Major depressive disorder, recurrent, severe, with psychotic features - Generalized anxiety disorder Psychiatric Data 59-year-old male well-known to our service was admitted involuntarily on 04/04/2019 after a medical hospitalization to treat confusion and persistent right lower extremity pain and swelling. Patient was found to have extensive nonocclusive thrombosis of the popliteal vein of the right lower extremity, and anticoagulation regimen was adjusted accordingly. He is also treated for cellulitis. It is reported the patient had presented to the emergency room multiple times prior to his admission on 03/29/19 to the medical floor. At times, patient was reported to be agitated with loud/disorganized speech and demonstrated anger towards the hospital staff. Patient resorted to delusional thought content of believing he has "the organs of a 20-year-old" and also believing that he has diabetes from eating "too hoagies." He continued to refuse to speak with clinicians or to take his medications appropriately. Differential for psychiatric concerns on the medical floor including delirium, catatonia, and severe psychotic depression. Patient was seen on psychiatric consult service during his medical admission for the above concerns, and recommendations were made with regards to medication adjustments. After medical stabilization, the patient was admitted to the psychiatric unit on a 302 involuntary commitment due to depression with psychosis, treatment nonadherence, and inability to care for self outside of the inpatient setting. Patient was most recently hospitalized for psychiatric treatment from for diagnosis of major depressive disorder with psychosis, having intentionally overdosed on [id number] sleep medications. Patient had been discharged on a 304 involuntary outpatient commitment, which was converted back to an involuntary inpatient commitment after he arrived on the mental health unit. Once admitted to our unit, the patient was continued on sertraline 200 mg daily and quetiapine 50 mg at bedtime, which she had intermittently been refusing. 2 physician opinion for medications over objection was completed; however, patient was agreeable to oral medication after the offer of injection. On 04/05/19 a lorazepam challenge was trialed as it was suspected the patient was demonstrating behavior consistent with catatonia. Patient did intermittently refuse the medication, and did not have an overwhelming response when he was compliant with the dosing. Condition eventually improved, and patient was more responsive and cooperative with treatment. Multiple barriers to evening medication compliance were identified over the course of the patient's early admission, and it was determined that at bedtime dosing of antipsychotic medication was not overly successful. Patient was agreeable to a trial of aripiprazole, which was titrated to a dose of 30 mg over the course of his admission. Patient continued on sertraline 200 mg and aripiprazole 30 mg for a large portion of his admission, and appeared to tolerate the medications well. His condition slowly improved over time. Patient was followed medically by a physician at the anticoagulation clinic, whom he follows with on an outpatient basis as well. PT/INR was drawn daily per hospital protocol, and appropriate adjustments were made with recommendations from the anticoagulation clinic. De lusional thoughts continue to improve over the course of his stay, and he was less fixated on the belief that he was dying. Patient is no longer making statements about believing he has diabetes, focusing on various vague somatic complaints, or reporting hopelessness. Patient's recent history implies that he is having difficulty living independently with regard to medication compliance and appropriately caring for himself. As patient's condition improved, the topic of supportive living or a personal assisted have been discussed. Patient was initially referred to [facility]'s supportive [facility], but level of care was increased due to patient's concern for his physical condition and need for anticoagulation management. Referral information was faxed to [facility], who reviewed the patient's case and ultimately accepted him at their facility. Patient verbalized willingness to be discharged to their facility after his inpatient psychiatric stay in order to obtain adequate support. These decisions were also coordinated with the patient's pillowcase maker and family/friends with patient's permission. Patient will continue to meet with his pillowcase maker on a regular basis. Aftercare appointments were rescheduled in order to allow for timely follow-up after discharge. Patient will continue to see Dr. Harrington for medication management and Juan Menendez for therapy. Patient will continue to follow with the anticoagulation clinic, who will coordinate medication recommendations with [facility] staff. Based on review of patient's case and their current presentation, risk of harm to self or others is no longer perceived to be acute. Management of symptoms on an outpatient basis seems the most appropriate and least restrictive setting. Pt seems appropriate for discharge with recommendation for consistent follow-up with outpatient psychiatric prescriber, therapist and pillowcase maker. Pt verbalized understanding of discharge plan reviewed and is agreeable with plan to be discharged to [facility] today. Day of Discharge Assessment Patient's case was reviewed and discussed during treatment team. Care was coordinated yesterday with [facility] to discuss discharge planning. Call was also placed to anticoagulation clinic to inform them of likely discharge today, requesting aftercare recommendations. Patient is to be transported to his home and then [facility] by a close friend later this morning. Patient will receive a visit from his pillowcase maker prior to discharge to coordinate outpatient follow-up schedule. Patient was seen today to assess readiness for discharge. He states he is, "Eh, alright" today. Patient does admit that he is "obviously nervous", but continues to be agreeable with the plan for discharge to [facility] today. Patient does ask some appropriate questions regarding discharge logistics. He verbalized understanding after reviewing discharge medication regimen. He was informed that we are in communication with the anticoagulation clinic to discuss discharge recommendations for Coumadin dosing. Patient continues to deny suicidality, stating "I think it will be all right." He is future oriented and conversation, asking questions about his anticoagulation clinic follow-ups. Patient did complete a safety plan prior to discharge, which was discussed during the session and also personally reviewed by this provider prior to discharge. Patient continues to verbalize readiness and willingness for discharge to [facility] this afternoon. He denies any additional questions related to the process at this time. ROS: Constitutional: denied Cardiovascular: denied Respiratory: denied Gastrointestinal: denied Neurological: denied Psychiatric: denies symptoms other than stated above Total of at least 10 systems reviewed, pertinent positives as above and in HPI. Transition of Care Transition Of Care Record: was reviewed with the patient Advance Directives Advance Directives Information Provided: Yes Advance Directives: No Mental Health Advance Directive: No Advance Directives on File: No Living Will: No Power of Resident Care Manager: No Advance Directives Reason:: Declines as Mental Health Visit. Risk Factors Assessment Presenting risk factors reviewed on discharge. Precipitating stressors mitigated by: admission for inpatient psychiatric observation and treatment, appropriate adjustments to medications to target symptoms, attendance of therapeutic treatment groups, development of healthy and effective coping strategies, involvement of outpatient supports, completion of a safety plan, treatment of medical conditions and education on diagnoses. Pt has demonstrated improvement in condition with regard to improvement in mood and functioning, demonstration of medication compliance, increased hopefulness, and improvements to physical health. At this time, patient is requesting discharge and is no longer considered to be at acute risk of harm to himself or others. Pt will be discharged with recommendation for ongoing outpatient psychiatric treatment. Pt is at increased risk of destabilization, which could contribute to possible harm to self when compared to the general population. This risk was mitigated by coordinating a discharge to a personal assisted, which would allow for adequate level of supervision and medication administration while patient continues to improve physically and mentally. Male: Yes : Yes Do You Have Access To A Gun?: No Health Problems: Yes Mental Health Diagnoses: Yes Substance Use Disorders: No Previous Attempt: Yes Family History of Suicide: No Previous Psychiatric Hospitalization: Yes Hopelessness: Yes Smoker: No Protective Factors Assessment Rastafari Beliefs: No : No Responsible for Young Children: No Employed: No Stable Relationships: Yes Supportive Family: Yes Good Rapport with Provider: No Tobacco Cessation at Discharge Tobacco Cessation Medication Prescribed at Discharge: Not Applicable/Non-Smoker Total Time Total Time Spent: Greater Than 30 Minutes Total Time Includes: Examination of the patient, Discharge Planning, Medication Reconciliation and Communication with other providers Discharge Data Consultations 04/08/19 11:23 Consult Hospitalist Routine 04/08/19 12:00 Consult Anticoagulation Clinic Routine Lab Results 04/05/19 04/06/19 04/07/19 07:53 12:24 08:09 WBC 6.68 RBC 5.20 Hgb 15.3 Hct 45.7 MCV 87.9 MCH 29.4 MCHC 33.5 RDW Std Deviation 45.2 RDW Coeff of Christin 14.1 Plt Count 293 MPV 8.9 PT 12.4 H 12.4 H INR 1.2 H 1.2 H Creatinine Est Cr Clr Drug Dosing Est GFR ( Amer) Est GFR (Non-Af Amer) 04/07/19 04/07/19 04/08/19 08:09 08:09 07:50 WBC RBC Hgb Hct MCV MCH MCHC RDW Std Deviation RDW Coeff of Christin Plt Count MPV PT 12.1 H 12.4 H INR 1.2 H 1.2 H Creatinine 0.97 Est Cr Clr Drug Dosing 95.8 Est GFR ( Amer) 97.3 Est GFR (Non-Af Amer) 83.9 04/09/19 04/10/19 04/10/19 08:15 07:55 07:55 WBC 6.17 RBC 4.82 Hgb 14.0 Hct 42.4 MCV 88.0 MCH 29.0 MCHC 33.0 RDW Std Deviation 46.4 H RDW Coeff of Christin 14.4 Plt Count 249 MPV 9.0 PT 13.3 H INR 1.3 H Creatinine 0.96 Est Cr Clr Drug Dosing 96.8 Est GFR ( Amer) 98.5 Est GFR (Non-Af Amer) 85.0 04/10/19 04/11/19 04/12/19 07:55 07:48 08:14 WBC RBC Hgb Hct MCV MCH MCHC RDW Std Deviation RDW Coeff of Christin Plt Count MPV PT 15.7 H 15.4 H 15.6 H INR 1.6 H 1.5 H 1.6 H Creatinine Est Cr Clr Drug Dosing Est GFR ( Amer) Est GFR (Non-Af Amer) 04/13/19 04/13/19 04/13/19 07:36 07:36 07:36 WBC 6.27 RBC 4.93 Hgb 14.6 Hct 43.8 MCV 88.8 MCH 29.6 MCHC 33.3 RDW Std Deviation 46.6 H RDW Coeff of Christin 14.4 Plt Count 258 MPV 9.0 PT 17.5 H INR 1.8 H Creatinine 0.99 Est Cr Clr Drug Dosing 93.9 Est GFR ( Amer) 94.9 Est GFR (Non-Af Amer) 81.9 04/14/19 04/15/19 04/16/19 07:58 07:50 10:06 WBC 7.08 RBC 5.25 Hgb 15.2 Hct 45.3 MCV 86.3 MCH 29.0 MCHC 33.6 RDW Std Deviation 45.1 RDW Coeff of Christin 14.3 Plt Count 309 MPV 9.0 PT 19.5 H 21.8 H INR 2.0 H 2.3 H Creatinine Est Cr Clr Drug Dosing Est GFR ( Amer) Est GFR (Non-Af Amer) 04/16/19 04/16/19 04/17/19 10:06 10:06 08:17 WBC RBC Hgb Hct MCV MCH MCHC RDW Std Deviation RDW Coeff of Christin Plt Count MPV PT 26.7 H 27.8 H INR 2.8 H 2.9 H Creatinine 1.05 Est Cr Clr Drug Dosing 88.5 Est GFR ( Amer) 88.4 Est GFR (Non-Af Amer) 76.2 04/18/19 04/19/19 04/19/19 08:15 07:46 07:46 WBC RBC Hgb Hct MCV MCH MCHC RDW Std Deviation RDW Coeff of Christin Plt Count MPV PT 25.2 H 26.3 H INR 2.6 H 2.8 H Creatinine 0.94 Est Cr Clr Drug Dosing 98.9 Est GFR ( Amer) 101.0 Est GFR (Non-Af Amer) 87.2 04/20/19 04/21/19 04/22/19 07:56 07:59 08:20 WBC RBC Hgb Hct MCV MCH MCHC RDW Std Deviation RDW Coeff of Christin Plt Count MPV PT 28.2 H 30.2 H INR 3.0 H 3.2 H Creatinine 1.08 Est Cr Clr Drug Dosing 86.1 Est GFR ( Amer) 85.4 Est GFR (Non-Af Amer) 73.7 04/22/19 04/23/19 04/24/19 08:20 07:49 08:01 WBC RBC Hgb Hct MCV MCH MCHC RDW Std Deviation RDW Coeff of Christin Plt Count MPV PT 32.4 H 28.2 H 21.7 H INR 3.5 H 3.0 H 2.2 H Creatinine Est Cr Clr Drug Dosing Est GFR ( Amer) Est GFR (Non-Af Amer) 04/25/19 04/26/19 04/27/19 08:58 07:24 07:00 WBC RBC Hgb Hct MCV MCH MCHC RDW Std Deviation RDW Coeff of Christin Plt Count MPV PT 18.2 H 18.6 H 21.3 H INR 1.9 H 1.9 H 2.2 H Creatinine Est Cr Clr Drug Dosing Est GFR ( Amer) Est GFR (Non-Af Amer) 04/28/19 04/29/19 04/30/19 08:02 08:21 06:00 WBC RBC Hgb Hct MCV MCH MCHC RDW Std Deviation RDW Coeff of Christin Plt Count MPV PT 23.5 H 28.2 H 29.3 H INR 2.4 H 3.0 H 3.1 H Creatinine Est Cr Clr Drug Dosing Est GFR ( Amer) Est GFR (Non-Af Amer) 05/01/19 05/02/19 05/03/19 07:47 06:57 06:59 WBC RBC Hgb Hct MCV MCH MCHC RDW Std Deviation RDW Coeff of Christin Plt Count MPV PT 37.7 H 28.7 H 24.0 H INR 4.1 H 3.0 H 2.5 H Creatinine Est Cr Clr Drug Dosing Est GFR ( Amer) Est GFR (Non-Af Amer) 05/04/19 05/05/19 05/06/19 07:30 08:11 07:15 WBC RBC Hgb Hct MCV MCH MCHC RDW Std Deviation RDW Coeff of Christin Plt Count MPV PT 26.6 H 30.8 H 34.6 H INR 2.8 H 3.3 H 3.7 H Creatinine Est Cr Clr Drug Dosing Est GFR ( Amer) Est GFR (Non-Af Amer) Hospital Course (1) Depression: 04/05 -continue sertraline 200 mg daily and quetiapine 50 mg at bedtime, which he is intermittently refusing. If he does not become more compliant with oral medications, we will pursue medications over objection, as his psychotic depression is unlikely to remit without medication, and he has responded well to these medications in the past. -Get records from outpatient psychiatrist, and coordinate care with his outpatient therapist and pillowcase maker. -Brother, Amie, is his power of state's attorney we will enlist his assistance with medical decision making as the patient currently lacks capacity to refuse the recommended treatment. -Encourage patient to be out of bed during the day and participating in groups and therapy. Consider locking his door during group time if he is unable to do this on his own. -He was on an involuntary outpatient commitment, so we will file for a conversion hearing to convert to 304 involuntary treatment. 04/06 -patient has refused sertraline the past 2 days, and although he took quetiapine the first night, he refused it last night. He is refusing all groups, has not bathed, and is refusing to eat and less staff bring food to his room. -We will place him in a medically necessary private room due to severity of mood and psychotic symptoms, and request staff to lock his door during group time him to be more engaged in treatment. -Staff contacted the patient's [id number], who clarified that the patient does not actually have a power of state's attorney, although this has been documented on admission here. She reported the family is frustrated and concerned with the patient's lack of ability to care for his mental and physical needs. The family has been exploring supportive living, specifically [facility]. -Patient's pillowcase maker, Av Perez, will come in for a meeting tomorrow. 04/07 -improved medication compliance with staff support; continue sertraline 200 mg daily and increase quetiapine to 100 mg at bedtime. -seed corn manager production, Av Perez, is coming to meet with patient today. 04/08 - Continue sertraline 200mg and increase quetiapine to 150mg HS. -On 304 commitment. Continue to encourage him to sign YAYA for [facility] 04/09 -pt refused quetiapine last night, having dose tonight be 1/2 of 300mg pill of quetiapine to help lower pill burden and might hold his lipid med tonight as well to help improve likelihood of pt taking his atypical antipsychotic dose kristina t seems to be medication most needed at this time. goal is to titrate up quetiapine. Pharmacy has 50,100,200, and 300mg size pills, (in Xr form there are 150mg size, if switching to xr in future would advise dosing around 8pm. addressed pt delusional thinking and attempted reality testing. 04/10 took seroquel 150mg dose on 04/09 and noticing some improvement today pt might be improving some and might be more open to treatment ceased MNPR at this time 04/11 - Continue sertraline 200mg daily - will titration quetiapine to 200mg daily, can give previous dose of 150mg (1/2 of 300mg tablet) if refuses - Having a rather difficult day today, limited engagement in programming, continues to believe he is dying 04/12 - Continue as above. Pt refused quetiapine last evening, to receive titrated dose of 200mg tonight if compliant - Had a decent morning, though returned to fixation on dying by the afternoon 04/13 -Continue sertraline, has been taking the 200 mg dose for the past 7 days. -Continues to intermittently refuse quetiapine, only taking it on 50% of days in the past week, and received first dose of 200 mg at bedtime last night. He is unwilling to discuss other atypical antipsychotics and remains floridly delusional without insight. He lacks capacity to refuse treatment recommendations for an antipsychotic, as 1 of his delusions is that he has diabetes and is going to at any moment, so believes any treatment is futile. Recommend medications over objection, with a trial of either aripiprazole or paliperidone to target psychotic symptoms, with an IM of olanzapine for refusal of oral medication. If he responds well and tolerates the oral antipsychotic, will then transition him to the long-acting injectable form. We will asked Dr. Delarosa to see him tomorrow for a second opinion. 04/14 - The patient continues to intermittently refuse quetiapine, only taking it on 50% of days in the past week. Today, he tells me that he will refuse quetiapine and all medications, stating, "What's the use? I'm dying." He is unwilling to discuss other antipsychotics and I agree with Dr. Vann's finding that he remains floridly delusional without insight. He lacks capacity to refuse treatment recommendations for an antipsychotic, as one of his delusions is that he has diabetes (he doesn't) and is going to "maybe right now." Within this context he tells me that treatment is futile and he will refuse to take what we are prescribing to him.. I endorse the recommendation for medications over objection. I have ordered aripiprazole 10 mg daily by mouth to treat the patient's psychosis, and I have ordered olanzapine 10 mg IM for refusal of p.o. aripiprazole. Without consistent application of antipsychotic medications at the appropriate dose, it can reasonably be expected that the patient will remain dangerous to himself to the degree that inpatient psychiatric hospitalization will remain medically necessary. 04/15 -Quetiapine was discontinued in favor of aripiprazole, with an order for olanzapine IM over objection if the patient declines aripiprazole. He did, in fact, voluntarily take aripiprazole 10 mg yesterday and this morning, and r eports that he did not have any difficulty tolerating it, either yesterday, or this morning. -He has been refusing sertraline. An issue may be that he may not have realized that sertraline and Zoloft are the same medication. Today, he tells me that he has a past history of febrile response to Zoloft. I have explained to him that our finding is that he is suffering from a major depression that has caused him to lose touch with certain aspects of reality and, for that reason, we feel very strongly that he must take an antidepressant medication as part of recovery. The patient tells us that he will now agree to take sertraline (Zoloft) but this remains to be seen. 04/16 -So far he has been compliant with increased dose of Abilify. Appears he would likely benefit from long-acting injectable if he continues to tolerate well 04/17 -Appears more depressive today. -Remains delusionally preoccupied -Increase Abilify to 20 mg daily. Has been compliant 04/18 -Continue aripiprazole and sertraline, and discontinue lorazepam. Encourage patient to be out of bed and participating in treatment. 04/19 - Continue as above - Pt reporting improvement in headache after receiving a heating pad - will continue to monitor. Possible etiology includes current environment (dry air, bright lights, ect.), medication side effect, or other medical concern. Will continue to observe for now, consider hospitalist bentley given his anticoagulation history to determine if NSAIDs could be appropriately considered in his case for intermittent and limited use 04/20 - Continue current medication regimen - Continue symptomatic treatment for headache, reporting Tylenol is effective although he is requiring routine dosing 04/21 - Titrating aripiprazole to 30mg qAM starting tomorrow; continue sertraline 200mg daily. Pt continues to be focused on number of pills being given to him, but this is difficult to rectify based on available pharmacy dosing of ordered medications - Tylenol remains helpful for headache symptoms, but symptoms return throughout the day - Discussed persistent reports of headache with hospitalist - felt to be ok to offer ibuprofen prn for headache symptoms despite anticoagulation status; continue to monitor - Anticipate meeting with [facility] representatives next week 04/22 -The patient does report improvement in his depression, although he also says that he feels that his depression is "so severe" that medications are unlikely to be more than a "drop in the bucket." -The patient's affect is noticeably brighter and more animated. Today, he laughed several times, appropriately, during our encounter. -The plan is to continue sertraline 200 mg daily in combination with aripiprazole 30 mg daily. -We are also emphasizing reality testing and illness teaching through individual and group therapies. The patient remains active and activity therapy and tells us that this is 1 of his favorite parts of hospitalization. 04/25 - Continue current medication regimen - Pt has been more isolative recently - Continue to encourage participation in group programming 04/26 - Continue current medication regimen - Feeling better physically today - Continue to encourage group participation - Meeting with Ashwin [place] and pillowcase maker today 04/27 - Continue current medication regimen - Meeting with Ashwin Parham yesterday, who will call regarding acceptance - Continue to explore housing possibilities, as patient feels he will not be able to live independently 04/28 - 05/01 - Continue current medication regimen, condition seems to be improving mildly over the past 2-3 days - Awaiting decision for [facility] regarding acceptance to their personal assisted for discharge - will explore other options with patient as well - Continue to encourage group participation 05/02 - 05/03 - Continue current medication regimen - Pt has been accepted to [facility], awaiting patient's decision to be discharged there - Continue to encourage group participation 05/04 - Explored the option of Abilify Maintena today, given patient's history of medication noncompliance - copay as it stands would be $800+ dollars - We have reached out to pharmaceutical rep to determine if there is an opportunity to reduce cost to patient for this medication - Copay for oral aripiprazole was reported $400+ dollars - will need to explore this prior to discharge - Otherwise, patient is attending groups and is appropriate in interactions with staff and peers 05/05 - Confirmed oral aripiprazole is available at specific retail pharmacies for ~$20 a month with Good Rx coupon code - Will coordinate with [facility] in regard to how prescription medications are handled - Pt agreeable with discharge to [facility] tomorrow - Continue current medication regimen (2) Catatonia: 04/05 -continue Lorazepam 2 mg twice daily and taper over hospital stay. Continue to treat underlying medical conditions as below. 04/06 -decrease Lorazepam to 1 mg twice daily, as he is intermittently refusing doses and it has not been overly helpful. 04/13 -patient has been refusing the at bedtime dose of lorazepam, so will discontinue it. The morning dose can likely be discontinued prior to discharge. 04/14 -The patient is poorly responsive, but not catatonic at this point. 04/18 -discontinue lorazepam, as patient retreating to his bed and want to minimize sedating effects. (3) Generalized anxiety disorder: 04/05 -continue SSRI and lorazepam as above, offer hydroxyzine as needed for anxiety. Consider resuming buspirone if indicated. 04/14 -The patient's anxious distress at this point seems primarily attributable to his delusional believes that he is moribund. Our plan is to continue to aggressively treat his psychosis and reassess anxious distress once the patient's psychotic features have resolved. 04/15 -The patient appears to be somewhat less anxious today, a circumstance that may be attributable to aripiprazole. Hopefully, the patient will also begin to take sertraline as prescribed. 04/22 -The patient appears to be less anxious today and tells us that he is feeling more relaxed and less upset. 04/25 - Continues to be preoccupied with perceived physical deterioration, continue current medication regimen 05/02 - Increased anxiety today after being accepted to [facility], patient admits to concern regarding finances (4) Cellulitis: 04/05 -complete course of Keflex, last dose 04/08/2019. Infection is resolving. 04/22 -Infection appears to have resolved. (5) DVT (deep venous thrombosis): 04/05 -continue Coumadin 5 mg daily, daily PT/INR, and Lovenox until INR is therapeutic. Coordinate care with Dr. Loyola, who sees him at the anticoagulation clinic. 04/07 -INR is 1.2 today, continue Coumadin and Lovenox. Coordinate with Dr. Loyola 04/11 - Reviewed consultation recommendations - discussed recs with Dr. Loyola via phone - Orders provided for patient to receive 15mg of warfarin today, then a schedule of 10mg daily SuTuThSa, and 5mg daily MWF - Recommended that enoxaparin continue until his INR is therapeutic for two days (two day overlap) - Dr. Loyola to continue to follow 04/14 -Anticoagulation therapy continues. PT and PTT values are as expected. -The patient reports no pain or tenderness in his lower extremities. 04/15 -Consulted telephonically yesterday, telephonically, with hematology. They are following, and agree that the patient's current lab values are in the target range. Several medication adjustments are being planned, and the patient remains asymptomatic. 04/16 -PT INR 26.7 and 2.8 respectively today 04/17 -INR 2.9 today 04/22 -The patient's INR levels have been steadily rising and this morning's value was 3.5. The addition of sertraline to the patient's medication regimen may be impacting upon his coagulation values. The patient remains asymptomatic, in terms of evidence of a pulmonary embolism. We will hold his daily warfarin level today, repeat the warfarin coagulation studies in the morning, and will plan to resume warfarin (at the half dose) on Thursday with a full dose on Thursday, as indicated by his lab values. 04/24 --clarification of lab frequency with coag clinic tomorrow 04/25, scheduled for 5 mg Coumadin this pm per Dr. Loyola. 04/25 - Restart coumadin regimen prior to its holding on 04/22 - Restart daily lab draws - PT INR is 18.2 and 1.9 respectively today - Appreciate ongoing input from anticoagulation clinic regarding recommendations 04/27 - Coumadin schedule changed per Dr. Loyola, who is following - Call placed to discuss possibility of alternative anticoagulation medications 04/28 - After consulting anticoagulation clinic to discuss alternative medication considerations, option of Eliquis 5mg BID was discussed but cost was reportedly an issue in the past - Medication was called to patient's pharmacy, who reported patient's co-pay for a one-month supply would be $345, which is not a financially feasible option for the patient at this time 05/01 - Coumadin dosing held today per protocol, as PT was 4.1 this morning 05/05 - Reached out to anticoagulation clinic to update on likely discharge tomorrow - Planning to coordinate care regarding discharge coumadin dose and timing of lab draws - Confirmed that [facility] is able to perform PT/INR at their facility (6) Hyperlipidemia: 04/05 -continue home statin. 04/09 and 04/10 aiming for pt to take med but comfortable with pt refusing this med at current time if helps him obtain his other medications, aim is for improved meed compliance occur as psychiatrically improves, lexy since currently pt pill load a factor in pt compliance Mental Health & Subst Abuse Tx Psychiatrist Name of Psychiatrist: [facility] - Dr. Harrington Psychiatrist's Date of Appointment with Psychiatrist: 05/09/19 Time of Appointment with Psychiatrist: 12 noon Psychiatric Appointment Comment: [address], [place] [address] Therapist Name of Therapist: Samuel MAGANA Therapist's Therapy Appointment Comment: [address] [facility], [place] Strap Machine Operator Name of Strap Machine Operator: [facility] [address] Phone Number for Strap Machine Operator: [phone] Date of Appointment with Strap Machine Operator: 05/05/19 Time of Appointment with Strap Machine Operator: 10 am on unit before dc Case Management Appointment Comment: [address] [facility], [address], [place] Post Discharge Appointments Primary Care Physician Name Of Family Doctor: [facility] - Dr. Catalina Todd Primary Care Provider Appointment Comment: [address] [place] [address] Smoking Cessation Counseling Tobacco Cessation Medication Prescribed at Discharge: Not Applicable/Non-Smoker Contact Information Discharge Discharge Address: [facility] Fdc Discharge Plan Discharge Items Patient Disposition: Personal Fdc Reason For Visit: MAJOR DEPRESSION RECURRENCE W/ PSYCHOTIC FEATURES Discharge Diagnosis: - Major depressive disorder, recurrent, severe, with psychotic features - Generalized anxiety disorder Condition on Discharge: Fair Health Concerns: - Factor V Leiden mutation; DVT of right lower limb, DVT prophylaxis Activity: Resume your previous activity Non-emergency contact: Primary Care Provider, Psychiatrist, Therapist and Costume Maker Call non-emergency contact if: you have any medication questions and your symptoms worsen Follow-up/Referrals: Catalina Todd MD [Primary Care Provider] - Diet: Regular Addtl Attending Provider Instructions: SPECIAL CARE INSTRUCTIONS: 1. Follow through with your scheduled aftercare appointments. If unable to keep an appointment, please call to reschedule. 2. Take your medication only as prescribed. Medication should not be changed or stopped without the approval of your doctor. In the event of worsening symptoms or concerns about side effects, contact your doctor immediately. 3. Utilize new healthy coping skills, anger management skills, and stress management skills learned during your hospitalization. Journal feelings and process them with a support person. Identify stressors or situations that may result in relapse, deterioration or inappropriate behaviors and develop a plan to deal with those issues. 4. If your coping skills are ineffective and you are in crisis, contact your outpatient providers for direction. If unable to reach your providers, please call the CAN HELP LINE AT or go to the closest Emergency Room. 5. Avoid alcohol and un-prescribed drugs. 6. You have been provided with the Mental Health Advance Directives Pamphlet for your review. AFTERCARE APPOINTMENTS: * Please call your insurance company prior to your scheduled appointment to confirm your aftercare providers are covered. Take your insurance information to your appointments. WHO TO CALL AND WHEN: Medical Emergencies: For questions or emergencies related to your hospital stay, please contact the Inpatient Behavioral Health Unit at [phone]. A chief medical officer is on-call 09/02 for the Behavioral Health Unit for emergencies At any time you feel your situation is an emergency, you may also call 911 immediately. Your Doctors Instructions noted above were prepared by provider ROS Brown Accounting Professional Provider Instructions: Anticoagulation Recommendations - Per Anticoagulation Clinic: - PT/INR was followed during admission; recommendations made by Anticoagulation clinic - patient follows with them on an outpatient basis. - PT/INR continues to stabilize; discharge recommendations were reviewed. Pt can have PT/INRs drawn at [facility], and care coordinated with Anticoagulation Clinic. - See discharge recommendations under "studies" below for dosing, repeat PT/INR scheduled for 05/11. Pending Studies at Discharge: Yes Studies:: Routine anti-coagulation studies per clinic recommendations: repeat blood work scheduled for 05/11/19. At discharge, recommendation is for 05/06 dose of coumadin to be held. Give 5mg on 05/07; 10mg on 05/09; 10mg on 05/10; 5mg and repeat bloodwork on 05/11. Stand-Alone Forms: My [facility] Skilled Items Patient informed of condition?: Yes DNR: No Discharge Level of Care: Other Communicable Disease: No Discharge Prognosis: Improving Lines: None Urinary Catheter: No Medications and DC Order Prescriptions: New sertraline 100 mg Tablet 200 mg PO QAM 30 Days Qty: 60 RF: 0 trazodone 100 mg Tablet 100 mg PO HS PRN (Reason: insomnia) 30 Days Qty: 30 RF: 0 aripiprazole 30 mg tablet 30 mg PO QAM 30 Days Qty: 30 RF: 0 warfarin [Coumadin] 5 mg Tablet 5 mg PO UD 5 Days Qty: 6 RF: 0 Continued simvastatin 40 mg tablet 40 mg PO HS Qty: 30 RF: 5 Discontinued warfarin 10 mg tablet 5 - 10 mg PO UD RF: 0 buspirone 10 mg tablet 10 mg PO TID RF: 0 bupropion HCl [Wellbutrin SR] 100 mg tablet sustained-release 12 hr 100 mg PO DAILY RF: 0 Discharge Orders: Discharge Order (Routine); Ordered 05/06/19 Ordered By: Deloris Cosme Admission Data Admit Date/Time: 04/04/19 16:39 Attending Provider: Ginger Vann Admit Provider: Ginger Vann Primary Care Provider: Catalina Todd Other Providers: Guera Loyola ; Gurinder Newberry ; Estefany Villanueva ; Nunu Basurto ; Bartolome Delatorre ; Ravin Moses ; Breana Rodriguez ; Rubin Casillas ; Albert Perez ; Tito Conklin ; Deloris Manning ; Bety Salazar ; Carol Parham ; Jimbo Gooden ; Dian Nick ; Abhinav Forbes ; Colton Ballesteros ; Estefany Stone ; Magdiel Mahmood ; Alma Ford ; Master Lujan ; Ankur Bonilla ; Bartolome Albert ; Magen Del Valle ; Heike Piedra ; Amando Bolton ; Randall Pa ; Dominic Hernandez Other Interventions: Discharge Summary Assessment (RN) Last Done: 05/06/19 10:25 PSY Interdisciplinary Discharge Planning Last Done: 05/06/19 10:40 DC Date/Time DO NOT enter until pt leaves facility: 05/06/19 11:15 Coding Level of Care Code 38899 D/C day mgmt > 30 min Diagnoses Depression F33.3 Active/Remission status: currently active Depression Type: major depressive disorder Major depression episode severity: severe Major depression recurrence: recurrent Psychotic features: with psychotic features Catatonia F06.1 Generalized anxiety disorder F41.1 Cellulitis L03.90 Site of cellulitis: unspecified site DVT (deep venous thrombosis) I82.409 DVT location: lower extremity Hyperlipidemia E78.5 Hyperlipidemia type: unspecified
[2019-05-06] MEDS ORDERED: WARFARIN SOD 5 MG TAB PO SCH (10:30)
== END 2019-05-06 11:15 | disposition home or self-care (01) | DRG 885 ==
LOC: 3S 16:39